=== PATIENT | male | born 1955 | race Caucasian/White ===

== ENCOUNTER 2020-07-25 08:19 | Outpatient (REF) | payer OTHER, SELFPAY | END 2020-07-25 08:20 | disposition home or self-care (01) | LOC: HO.LAB 08:19 | PROVIDERS: Visit Provider Internal Medicine | DX: Z20.828 Contact with and (suspected) exposure to other viral communicable diseases (principal) | CPT/HCPCS: C9803; U0003 ==

== ENCOUNTER 2020-11-02 06:05 | Outpatient (REF) | payer OTHER, SELFPAY ==
[2020-11-02 07:00] LABS: MANUAL DIFF FLAG NO
[2020-11-02 07:03] LABS: Basophils Absolute Auto 0.1 X10*3/uL (0.0-0.2); Basophils Percent Auto 0.7 % (0-2); Eosinophils Absolute Auto 0.1 X10*3/uL (0.0-0.4); Hematocrit 45.2 % (42-52); Hemoglobin 15.1 g/dl (14.0-18.0); Imm Gran Abs Auto 0.03 X10*3/uL (0.00-0.03); Imm Gran Pct Auto 0.4 % (0.0-0.4); Lymphocytes Absolute Auto 1.4 X10*3/uL (1.2-4.9); Mean Corpuscular HGB Conc 33.4 g/dl (31.0-36.0); Mean Corpuscular Volume 89.9 fL (80-98); Mean Platelet Volume 11.5 fL (9.4-12.4); Monocytes Absolute Auto 0.5 X10*3/uL (0.1-1.2); Monocytes Percent Auto 7.1 % (2-11); Neutrophils Absolute Auto 4.8 X10*3/uL (2.0-8.3); Neutrophils Percent Auto 69.8 % (45-73); Platelet Count 193 X10*3/uL (160-400); Red Blood Count 5.03 X10*6/uL (4.60-5.80); Red Cell Distribution Width 13.5 % (11.0-16.0); White Blood Count 6.9 X10*3/uL (4.8-10.8)
[2020-11-02 07:13] LABS: Glucose Urine UA NEG (NEG); Leukocyte Esterase Urine NEG (NEG); Nitrite Urine NEG (NEG); PH 5.5 (5.0-8.0); Specific Gravity - Urine >= 1.030 (1.005-1.025); Urine Blood TRACE (NEG); Urine Ketones NEG (NEG); Urine Protein NEG (NEG-TRACE)
[2020-11-02 07:17] LABS: Appearance Urine CLEAR; Color Urine YELLOW
[2020-11-02 07:20] LABS: Estimated Average Glucose 105 mg/dL; Hemoglobin A1c % 5.3 %
[2020-11-02 07:31] LABS: Alanine Aminotransferase 35 U/L (0-40); Albumin Level 4.6 g/dL (3.5-5.0); Alkaline Phosphatase 112 U/L (39-117); Anion Gap 15 (12-20); Aspartate Amino Transferase 32 U/L (5-37); Bilirubin Total 0.7 mg/dL (0.0-1.0); Blood Urea Nitrogen 15 mg/dL (9-16); Calcium 9.5 mg/dL (8.4-10.2); Carbon Dioxide 27 mmol/L (22-29); Chloride 106 mmol/L (96-108); Cholesterol 163 mg/dL; Estimated Glomerular Filt Rate > 60; Glucose Fasting 97 mg/dL (60-99); HDL Cholesterol 51 mg/dL; LDL Cholesterol Calculated 97 mg/dl; Potassium 4.6 mmol/L (3.3-5.1); Sodium 143 mmol/L (135-145); Total Protein 7.4 g/dL (6.5-8.0); Triglycerides 79 mg/dL
[2020-11-02 07:39] LABS: Mucus Urine 2+ /LPF; RBC Urine 0-2 /HPF (0); Squamous Epithelial Cell Urine 1+ /LPF
[2020-11-02 07:52] LABS: Prostate Specific Antigen 0.24 ng/mL (<0.05-4.0)
== END 2020-11-02 06:06 | disposition home or self-care (01) ==
LOC: HO.LAB 06:05
PROVIDERS: PCP Internal Medicine; Visit Provider Internal Medicine
DX: Z00.00 Encounter for general adult medical examination without abnormal findings (principal); Z12.5 Encounter for screening for malignant neoplasm of prostate; I10 Essential (primary) hypertension; K29.50 Unspecified chronic gastritis without bleeding; E78.5 Hyperlipidemia, unspecified; R73.01 Impaired fasting glucose; N40.0 Benign prostatic hyperplasia without lower urinary tract symptoms
CPT/HCPCS: 36415; 80053; 80061; 81001; 81003; 83036; 84153; 84443; 85025

== ENCOUNTER 2021-04-18 09:27 | Outpatient (REF) | payer MEDICARE, SELFPAY ==
[2021-04-18 11:28] LABS: Prostate Specific Antigen 0.27 ng/mL (<0.05-4.0)
== END 2021-04-18 09:28 | disposition home or self-care (01) ==
LOC: HO.LAB 09:27
PROVIDERS: PCP Internal Medicine; Visit Provider Urology
DX: Z12.5 Encounter for screening for malignant neoplasm of prostate (principal); N40.1 Benign prostatic hyperplasia with lower urinary tract symptoms
CPT/HCPCS: 36415; 84153

== ENCOUNTER 2021-11-30 06:00 | Outpatient (REF) | payer MEDICARE, SELFPAY ==
[2021-11-30 07:51] LABS: Alanine Aminotransferase 23 U/L (0-40); Albumin Level 4.4 g/dL (3.5-5.0); Alkaline Phosphatase 117 U/L (39-117); Aspartate Amino Transferase 25 U/L (5-37); Bilirubin Direct 0.2 mg/dL (0.0-0.5); Bilirubin Total 0.5 mg/dL (0.0-1.0); Total Protein 7.1 g/dL (6.5-8.0)
[2021-11-30 07:59] LABS: Alanine Aminotransferase 24 U/L (0-40); Albumin Level 4.3 g/dL (3.5-5.0); Alkaline Phosphatase 115 U/L (39-117); Anion Gap 9 (12-20); Aspartate Amino Transferase 25 U/L (5-37); Bilirubin Total 0.5 mg/dL (0.0-1.0); Blood Urea Nitrogen 19 mg/dL (9-16); Calcium 9.4 mg/dL (8.4-10.2); Carbon Dioxide 28 mmol/L (22-29); Chloride 107 mmol/L (96-108); Cholesterol 160 mg/dL; Estimated Glomerular Filt Rate > 60; Glucose Fasting 96 mg/dL (60-99); HDL Cholesterol 45 mg/dL; LDL Cholesterol Calculated 104 mg/dl; Potassium 4.4 mmol/L (3.3-5.1); Sodium 140 mmol/L (135-145); Triglycerides 57 mg/dL
[2021-11-30 08:05] LABS: Appearance Urine CLEAR; Color Urine YELLOW; Glucose Urine UA NEG (NEG); Leukocyte Esterase Urine NEG (NEG); Nitrite Urine NEG (NEG); PH 5.5 (5.0-8.0); Specific Gravity - Urine >= 1.030 (1.005-1.025); Urine Blood NEG (NEG); Urine Ketones NEG (NEG); Urine Protein NEG (NEG-TRACE)
[2021-11-30 08:12] LABS: TSH reflex Free T4 2.31 uIU/mL (0.32-4.0)
[2021-12-03 13:17] LABS: Alpha Fetoprotein 2.1 ng/mL (<6.1)
== END 2021-11-30 06:01 | disposition home or self-care (01) ==
LOC: HO.LAB 06:00
PROVIDERS: PCP Nurse Practitioner Family; Visit Provider Internal Medicine
DX: Z00.00 Encounter for general adult medical examination without abnormal findings (principal); Z86.19 Personal history of other infectious and parasitic diseases
CPT/HCPCS: 36415; 80053; 80061; 80076; 81003; 82105; 82248; 84443

== ENCOUNTER 2021-12-26 09:37 | Outpatient (REF) | payer MEDICARE, SELFPAY ==
--- NOTE | ~2021-12-26 | US_ITS ---
EXAMINATION: US COMPLETE ABDOMEN WITH LIVER ELASTOGRAPHY CLINICAL INFORMATION: Hepatitis C COMPARISON: Previous ultrasound most recent June 2019 TECHNIQUE: Real-time imaging of the abdominal viscera. Noninvasive ultrasound liver fibrosis assessment is performed using Dorothea ElastPQ point quantification shear wave elastography (2D-SWE) with a C5-2 MHz transducer. Multiple elastography samples are obtained. FINDINGS: PANCREAS: Not well visualized due to bowel gas. ABDOMINAL AORTA: The proximal, middle, and distal aortic segments are normal in caliber. INFERIOR VENA CAVA: Visualized portions are normal. LIVER: Liver echotexture is increased. The liver is normal in size and contour. No focal lesion or intrahepatic biliary duct dilatation. The right lobe measures 14 cm in length. The left lobe measures 6.4 cm in length. Portal flow is normal/hepatopedal Shear wave liver elastography median stiffness is 1.4 m/s (reference: normal median stiffness is 1.3 m/s or less). IQR/median stiffness to assess sampling precision is 0.3 (reference: good quality data set is IQR/median stiffness of 0.15 or less). GALLBLADDER: Surgically removed COMMON BILE DUCT: Normal in caliber measuring 0.3 cm in diameter. RIGHT KIDNEY: Normal. No hydronephrosis. No renal calculi or focal parenchymal lesions. The kidney measures 10 cm in maximum dimension. LEFT KIDNEY: Normal. No hydronephrosis. No renal calculi or focal parenchymal lesions. The kidney measures 11 cm in maximum dimension. SPLEEN: Normal. The spleen measures 9 cm in maximum dimension. FREE FLUID: None. US/US abdomen comp w elastography IMPRESSION: 1. Impression: Echogenic liver. No ultrasound evidence of cirrhosis. Nonvisualization of the pancreas. Post cholecystectomy. 2. Liver elastography: Adequate liver sampling. In the absence of other known clinical signs, rules out compensated advanced chronic liver disease. REFERENCE: Society of Radiologists in Ultrasound Liver Stiffness Thresholds (2020): LIVER STIFFNESS THRESHOLDS: *Liver Stiffness equal or less than 1.3 m/s: High probability of being normal. *Liver Stiffness less than 1.7 m/s: In the absence of other known clinical signs, rules out compensated advanced chronic liver disease. *Liver Stiffness 1.7-2.1 m/s: Suggestive of compensated advanced chronic liver disease but need further test for confirmation. *Liver Stiffness over 2.1 m/s: Rules in compensated advanced chronic liver disease. *Liver Stiffness over 2.4 m/s: Suggestive of clinically significant portal hypertension. QUALITY OF DATA SET: *IQR/Median value equal or less than 0.15 implies a quality data set. *IQR/Median value over 0.15 implies a poor quality data set. SIGNIFICANT CHANGE FROM PRIOR EXAM: Significant change if liver stiffness measurement is 10% or greater from prior exam. OTHER CONSIDERATIONS: The stage of liver fibrosis may be overestimated in the setting of acute hepatitis, liver inflammation, elevated liver function tests, hepatic vascular congestion, obstructive cholestasis, non-fasting state, and infiltrative diseases such as amyloidosis and lymphoma. In some patients with NAFLD, the liver stiffness thresholds for compensated advanced chronic liver disease may be lower. In causes other than viral hepatitis and NAFLD, liver stiffness thresholds are not well established.
== END 2021-12-26 09:38 | disposition home or self-care (01) ==
LOC: HO.US 09:37
PROVIDERS: PCP Nurse Practitioner Family; Visit Provider Internal Medicine
DX: Z86.19 Personal history of other infectious and parasitic diseases (principal)
CPT/HCPCS: 76705; 76981

== ENCOUNTER 2022-01-02 06:25 | Day surgery (SDC) | payer MEDICARE, SELFPAY ==
[2021-12-27 15:07] VITALS: BMI 24.0
--- NOTE | 2022-01-01 08:57 | P.CONAN_ITS ---
Documented by User: Sherrill Loya NP 01/01/22 08:58 HPI - Anesthesia Eval Consult details Narrative: 66yo M for Upper Endoscopy and Colonoscopy *Mult med allergies* PMFSH Active Problems Active Problems: All Active Problems (Updated 10/11/21 @ 17:25 by Rudolph Kumari [facility]) Physical exam (Acute) Skin lesion (Acute) Left shoulder pain (Acute) Lumbar spondylosis (Acute) Impaired fasting glucose (Acute) Dyslipidemia (Acute) Benign essential hypertension (Acute) Gastritis (Acute) Benign prostatic hyperplasia (Acute) Alopecia (capitis) totalis (Acute) Past Medical History Medical History (Updated 01/02/22 @ 06:47 by Rosario Tubbs RN) Alopecia (capitis) totalis Benign essential hypertension Benign prostatic hyperplasia Bradycardia Diverticulosis Dyslipidemia Gastritis History of drug abuse History of gastric ulcer History of hepatitis C History of Lyme disease (~2009) Impaired fasting glucose Internal hemorrhoids Left shoulder pain Lumbar spondylosis Normal colonoscopy (~08/2011) Family History Family History Father Prostate cancer Gastric cancer Family/Other Skin cancer Surgical History Surgical History (Updated 12/27/21 @ 15:08 by Sylvia Fry RN) History of esophagogastroduodenoscopy (EGD) (~06/2019) History of medial meniscus repair of left knee (~12/2016) History of prostate surgery History of right inguinal hernia repair (~2011) History of surgery on right wrist Hx laparoscopic cholecystectomy (~10/2012) Status post left rotator cuff repair (~11/2020) Social History Social History Housing: House Alcohol intake: never Patient Tobacco Use Status: Never used Tobacco e-Cigarette/Vaping Use: Never Used Second Hand Smoke Exposure: No Use of substances other than those prescribed or required for medical reasons: No Are you DNR?: No Advance Directives: No Advance Directives Information Provided: Yes Recently lost weight without trying: No Nutrition Risks: No Nutritional Risk service: Yes Current occupational status: retired Meds Allergies Allergy/AdvReac Type Severity Reaction Status Date / Time morphine [MORPHINE] Allergy Intermediate HR DROPPED Verified 10/11/21 16:07 ranitidine [Zantac] Allergy Intermediate depression Verified 12/27/21 14:24 (after taking for a few months) amoxicillin [Prevpac] AdvReac Intermediate depression Verified 12/27/21 14:24 (after taking for a few days) - includes most PPI clarithromycin [Prevpac] AdvReac Intermediate depression Verified 12/27/21 14:24 (after taking for a few days) - includes most PPI lansoprazole [Prevpac] AdvReac Intermediate depression Verified 12/27/21 14:24 (after taking for a few days) - includes most PPI Prilosec AdvReac Intermediate depression Uncoded 12/27/21 14:24 (after taking for a few days) - includes most PPI Zantac AdvReac Intermediate depression Uncoded 12/27/21 14:24 (after taking for a few months) Home Medications Medication Instructions Recorded Confirmed Last Taken Type No Known Home Meds 10/13/20 12/27/21 Unknown History Exam Exam Date and Time: January 01, 2022 0857 Height,Weight and Vital Signs: Height 5 ft 9 in Weight 73.936 kg Pertinent Lab Results Pertinent Lab Results: Laboratory Tests 11/02/20 11/30/21 06:20 06:12 WBC 6.9 Hgb 15.1 Hct 45.2 Plt Count 193 Sodium 140 Potassium 4.4 Chloride 107 Carbon Dioxide 28 BUN 19 H Creatinine 0.99 Assessment and Plan Assessment Anesthesia Assessment: Chart Reviewed Documented by User: William Lozada MD 01/02/22 17:23 [facility] Past Medical History Medical History (Updated 01/02/22 @ 06:47 by Rosario Tubbs RN) Alopecia (capitis) totalis Benign essential hypertension Benign prostatic hyperplasia Bradycardia Diverticulosis Dyslipidemia Gastritis History of drug abuse History of gastric ulcer History of hepatitis C History of Lyme disease (~2009) Impaired fasting glucose Internal hemorrhoids Left shoulder pain Lumbar spondylosis Normal colonoscopy (~08/2011) Family History Family History Father Prostate cancer Gastric cancer Family/Other Skin cancer Family history of problems with anesthesia: No Surgical History Surgical History (Updated 12/27/21 @ 15:08 by Sylvia Fry RN) History of esophagogastroduodenoscopy (EGD) (~06/2019) History of medial meniscus repair of left knee (~12/2016) History of prostate surgery History of right inguinal hernia repair (~2011) History of surgery on right wrist Hx laparoscopic cholecystectomy (~10/2012) Status post left rotator cuff repair (~11/2020) History of Problems with Anesthesia: No Social History Social History Housing: House Alcohol intake: never Patient Tobacco Use Status: Never used Tobacco e-Cigarette/Vaping Use: Never Used Second Hand Smoke Exposure: No Use of substances other than those prescribed or required for medical reasons: No Are you DNR?: No Advance Directives: No Advance Directives Information Provided: Yes Recently lost weight without trying: No Nutrition Risks: No Nutritional Risk service: Yes Current occupational status: retired Meds Allergies Allergy/AdvReac Type Severity Reaction Status Date / Time morphine [MORPHINE] Allergy Intermediate HR DROPPED Verified 10/11/21 16:07 ranitidine [Zantac] Allergy Intermediate depression Verified 12/27/21 14:24 (after taking for a few months) amoxicillin [Prevpac] AdvReac Intermediate depression Verified 12/27/21 14:24 (after taking for a few days) - includes most PPI clarithromycin [Prevpac] AdvReac Intermediate depression Verified 12/27/21 14:24 (after taking for a few days) - includes most PPI lansoprazole [Prevpac] AdvReac Intermediate depression Verified 12/27/21 14:24 (after taking for a few days) - includes most PPI Prilosec AdvReac Intermediate depression Uncoded 12/27/21 14:24 (after taking for a few days) - includes most PPI Zantac AdvReac Intermediate depression Uncoded 12/27/21 14:24 (after taking for a few months) Home Medications Medication Instructions Recorded Confirmed Last Taken Type No Known Home Meds 10/13/20 12/27/21 Unknown History Exam Airway Mallampati Class: II TM Dist: >3cm Neck ROM: Limited Loose/Missing/Broken Teeth: Yes (Chipped , poor dention , implants ) Heart: S1, S2 Lungs: b/l breath sounds Assessment and Plan Assessment Anesthesia Assessment: Anesthesia Plan Discussed Final Anesthetic Review Family History of Problems with Anesthesia: No History of Problems with Anesthesia: No NPO: Yes ASA Class: I Final Preanesthetic Review: Meds/Allgs Chart Reviewed, Consent Obtained/Reviewed and Anes Risks/Benef Reviewed Patient Risk: Intermediate Procedure Risk: Intermediate Anesthetic Plan Anesthetic Plan: MAC: Disposition: Standard PACU
[2022-01-02 06:35] VITALS: BMI 22.7
[2022-01-02 06:40] VITALS: BP 147/60; PULSE 41; RESP 16; TEMP 36.1; O2SAT 99
--- NOTE | 2022-01-02 06:50 | PC.NURSE ---
MD KELLER BY BEDSIDE DUE TO PATIENTS HEART RATE. ASYMPTOMATIC. 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
[2022-01-02 06:52] VITALS: PULSE 39
[2022-01-02] MEDS: Lactated Ringers 1,000 ML 100 ML IVCONT (06:59)
[2022-01-02 08:41] VITALS: BP 90/50; PULSE 52; RESP 16; TEMP 36.3; O2SAT 99
--- NOTE | 2022-01-02 08:46 | P.BOP_ITS ---
Brief Operative Note Date of Service: 01/02/22 Pre-op diagnosis: Cordero's, Screening Post-op diagnosis: other (Gastric ulcer, Hiatal hernia, Diverticulosis) Procedure: EGD with biopsies, Colonoscopy to the cecum and TI Surgeon: Joshua Yuen Anesthesia: MAC Was an [place] used for this Procedure?: No Estimated blood loss (mL): 2.0 Pathology: other (A. EG Junction at 39cm B. Gastric ulcer C. Gastric antrum) Condition: stable Disposition: PACU
[2022-01-02 08:56] VITALS: BP 108/62; PULSE 39; RESP 16; O2SAT 98
[2022-01-02 09:11] VITALS: BP 107/59; PULSE 40; RESP 16; O2SAT 100
[2022-01-02 09:26] VITALS: BP 116/65; PULSE 43; RESP 17; TEMP 36.3; O2SAT 100
--- NOTE | 2022-01-02 09:55 | OP_ITS ---
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 Full consent was obtained from him for this, including risks of bleeding and perforation. PREOPERATIVE DIAGNOSIS: POSTOPERATIVE DIAGNOSIS: PROCEDURE PERFORMED: Esophagogastroduodenoscopy with biopsies, and colonoscopy to the cecum and terminal ileum. ESTIMATED BLOOD LOSS: COMPLICATIONS: ANESTHESIA: Monitored anesthesia care. ASSISTANTS: SPECIMENS: PREOPERATIVE DIAGNOSES: Cordero's esophagus and colorectal cancer screening. POSTOPERATIVE DIAGNOSES: Cordero's esophagus and colorectal cancer screening, gastric ulcer, hiatal hernia, diverticulosis, and internal hemorrhoids. DESCRIPTION OF PROCEDURE: The patient was placed in the left lateral decubitus position. The Olympus video gastroscope was passed into the posterior oropharynx and upper esophagus under direct vision. The scope was passed slowly to the distal esophagus. The gastroesophageal junction appeared at 39 cm. There was some slight irregularity consistent with small areas of Cordero mucosa. There was no esophagitis. The scope entered into the stomach. There was a small hiatal hernia. The scope was advanced to pylorus and duodenum was cannulated to the descending portion. The duodenum including the bulb appeared normal without mass or ulceration. The scope was withdrawn back into the stomach. The gastric antrum appeared normal other than some mild areas of erythema and edema. Biopsies were obtained. In the body of the stomach, at approximately 50 cm, on the greater curvature toward the posterior wall, was an approximately 3 cm area of edema and some central ulceration. Multiple biopsies were obtained from the center of the area, which was somewhat firm with chunks of tissue, coming off with each biopsy. The area was somewhat friable. The remainder of the proximal stomach appeared normal both in the forward viewing and retroflexed positions. The scope was withdrawn back into the esophagus. Multiple biopsies were obtained at the EG junction at 39 cm. Proximal to this the esophageal mucosa appeared normal. The scope was withdrawn from the patient. He was turned around for the colonoscopy. The digital rectal exam revealed no abnormalities. The Olympus video pediatric colonoscope was entered into the rectum and advanced easily to the cecum. Once in the cecum, I did identify normal-appearing cecal pouch with appendiceal orifice and a normal-appearing ileocecal valve. The terminal ileum was cannulated and appeared normal. The scope was withdrawn back into the colon. The entire cecum and ileocecal valve appeared normal. The scope was slowly withdrawn assessing all mucosal surfaces carefully. Preparation was excellent. I did not visualize any sign of polyps, colitis, or angiodysplasia. There was a mild amount of sigmoid diverticulosis. In the rectum, the scope was retroflexed visualizing internal hemorrhoids, but no other pathology. The rectal mucosa appeared normal. The scope was straightened and withdrawn from the patient. He tolerated both procedures well and was returned to the recovery area in stable condition. IMPRESSION: 1. Gastric ulcer, multiple biopsies taken. 2. Mild gastritis. 3. History of Cordero's esophagus. 4. Small hiatal hernia. 5. Diverticulosis. 6. Internal hemorrhoids. PLAN: The results of the pathology will be checked. I shall start him on omeprazole 20 mg daily. He was advised to avoid all aspirin and NSAIDs. I would recommend a repeat upper endoscopy in 3 years. Further plans will be made depending upon the results of the biopsies of the gastric ulcer. MD BENIGNO Santos/DASIA / [id number] MTDD
== END 2022-01-02 10:13 | disposition home or self-care (01) ==
PROVIDERS: Pathology Anatomic Pathology & Clinical Pathology; PCP Nurse Practitioner Family; Visit Provider Internal Medicine
PROC: (CPT 43239; principal; 2022-01-02 07:30)
DX: Z12.11 Encounter for screening for malignant neoplasm of colon (principal); K57.30 Diverticulosis of large intestine without perforation or abscess without bleeding; K64.8 Other hemorrhoids; K22.70 Barrett's esophagus without dysplasia; K21.9 Gastro-esophageal reflux disease without esophagitis; K25.9 Gastric ulcer, unspecified as acute or chronic, without hemorrhage or perforation; K29.50 Unspecified chronic gastritis without bleeding; K44.9 Diaphragmatic hernia without obstruction or gangrene; L63.0 Alopecia (capitis) totalis; F19.11 Other psychoactive substance abuse, in remission; Z79.899 Other long term (current) drug therapy; Z88.1 Allergy status to other antibiotic agents; Z88.8 Allergy status to other drugs, medicaments and biological substances; Z90.49 Acquired absence of other specified parts of digestive tract; Z87.442 Personal history of urinary calculi; Z86.19 Personal history of other infectious and parasitic diseases; Z80.42 Family history of malignant neoplasm of prostate; Z80.0 Family history of malignant neoplasm of digestive organs
CPT/HCPCS: 43239; G0121; 36415; 81261; 81264; 84999; 88271; 88275; 88305; 88341; 88342; 88360; 88374; 88377; J2250

== ENCOUNTER → 2022-01-21 11:20 | Outpatient (BNV) | payer MEDICARE, SELFPAY | PROVIDERS: PCP Nurse Practitioner Family; Visit Provider Internal Medicine Medical Oncology | DX: C85.99 Non-Hodgkin lymphoma, unspecified, extranodal and solid organ sites (principal) | CPT/HCPCS: 99204; 99213; 99214 ==

== ENCOUNTER 2022-01-28 11:12 | Day surgery (SDC) | payer MEDICARE, SELFPAY ==
--- NOTE | 2022-01-24 14:20 | P.CONAN_ITS ---
Documented by User: Sherrill Loya NP 01/24/22 14:23 HPI - Anesthesia Eval Consult details Narrative: 66yo M for Bone Marrow Biopsy s/p Upper Endoscopy and Colonoscopy 12/2021 with TIVA - Dx Gastric Lymphoma *Mult med allergies* PMFSH Active Problems Active Problems: All Active Problems (Updated 01/21/22 @ 19:28 by Twyla Greene MD) Physical exam (Acute) Skin lesion (Acute) Gastric lymphoma (Acute) Left shoulder pain (Acute) Lumbar spondylosis (Acute) Impaired fasting glucose (Acute) Dyslipidemia (Acute) Benign essential hypertension (Acute) Gastritis (Acute) Benign prostatic hyperplasia (Acute) Alopecia (capitis) totalis (Acute) Past Medical History Medical History Bradycardia Diverticulosis History of drug abuse History of gastric ulcer History of hepatitis C History of Lyme disease (~2009) Internal hemorrhoids Normal colonoscopy (~08/2011) Family History Family History Father Prostate cancer Gastric cancer Family/Other Skin cancer Family history of problems with anesthesia: No Surgical History Surgical History History of esophagogastroduodenoscopy (EGD) (~06/2019) History of medial meniscus repair of left knee (~12/2016) History of prostate surgery History of right inguinal hernia repair (~2011) History of surgery on right wrist Hx laparoscopic cholecystectomy (~10/2012) Status post left rotator cuff repair (~11/2020) History of Problems with Anesthesia: No Social History Social History Household Members: None Housing: House Are you a primary child care center administrator to a significant other at home: No Do you presently have visiting nurse or other home services: No Alcohol intake: never Patient Tobacco Use Status: Never used Tobacco e-Cigarette/Vaping Use: Never Used Second Hand Smoke Exposure: No Use of substances other than those prescribed or required for medical reasons: No Are you DNR?: No Advance Directives: No Advance Directives Information Provided: Yes service: Yes Current occupational status: retired Meds Allergies Allergy/AdvReac Type Severity Reaction Status Date / Time morphine [MORPHINE] Allergy Intermediate HR DROPPED Verified 01/28/22 11:51 ranitidine [Zantac] Allergy Intermediate depression Verified 01/28/22 11:51 (after taking for a few months) amoxicillin [Prevpac] AdvReac Intermediate depression Verified 01/21/22 11:55 (after taking for a few days) - includes most PPI clarithromycin [Prevpac] AdvReac Intermediate depression Verified 01/21/22 11:55 (after taking for a few days) - includes most PPI lansoprazole [Prevpac] AdvReac Intermediate depression Verified 01/21/22 11:55 (after taking for a few days) - includes most PPI Prilosec AdvReac Intermediate depression Uncoded 01/21/22 11:55 (after taking for a few days) - includes most PPI Zantac AdvReac Intermediate depression Uncoded 01/21/22 11:55 (after taking for a few months) Home Medications Medication Instructions Recorded Confirmed Last Taken Type No Known Home Meds 10/13/20 01/28/22 Unknown History Exam Exam Date and Time: January 24, 2022 1420 Pertinent Lab Results Pertinent Lab Results: Laboratory Tests 01/21/22 01/21/22 12:56 12:56 WBC 7.0 Hgb 14.6 Hct 43.8 Plt Count 175 Sodium 139 Potassium 4.6 Chloride 106 Carbon Dioxide 27 BUN 16 Creatinine 0.92 Assessment and Plan Assessment Anesthesia Assessment: Chart Reviewed Final Anesthetic Review Family History of Problems with Anesthesia: No History of Problems with Anesthesia: No Documented by User: Alicia Diaz MD 01/28/22 13:24 [facility] Past Medical History Medical History Bradycardia Diverticulosis History of drug abuse History of gastric ulcer History of hepatitis C History of Lyme disease (~2009) Internal hemorrhoids Normal colonoscopy (~08/2011) Functional capacity: independent ambulation Family History Family History Father Prostate cancer Gastric cancer Family/Other Skin cancer Surgical History Surgical History History of esophagogastroduodenoscopy (EGD) (~06/2019) History of medial meniscus repair of left knee (~12/2016) History of prostate surgery History of right inguinal hernia repair (~2011) History of surgery on right wrist Hx laparoscopic cholecystectomy (~10/2012) Status post left rotator cuff repair (~11/2020) Social History Social History Household Members: None Housing: House Are you a primary child care center administrator to a significant other at home: No Do you presently have visiting nurse or other home services: No Alcohol intake: never Patient Tobacco Use Status: Never used Tobacco e-Cigarette/Vaping Use: Never Used Second Hand Smoke Exposure: No Use of substances other than those prescribed or required for medical reasons: No Are you DNR?: No Advance Directives: No Advance Directives Information Provided: Yes service: Yes Current occupational status: retired Meds Allergies Allergy/AdvReac Type Severity Reaction Status Date / Time morphine [MORPHINE] Allergy Intermediate HR DROPPED Verified 01/28/22 11:51 ranitidine [Zantac] Allergy Intermediate depression Verified 01/28/22 11:51 (after taking for a few months) amoxicillin [Prevpac] AdvReac Intermediate depression Verified 01/21/22 11:55 (after taking for a few days) - includes most PPI clarithromycin [Prevpac] AdvReac Intermediate depression Verified 01/21/22 11:55 (after taking for a few days) - includes most PPI lansoprazole [Prevpac] AdvReac Intermediate depression Verified 01/21/22 11:55 (after taking for a few days) - includes most PPI Prilosec AdvReac Intermediate depression Uncoded 01/21/22 11:55 (after taking for a few days) - includes most PPI Zantac AdvReac Intermediate depression Uncoded 01/21/22 11:55 (after taking for a few months) Home Medications Medication Instructions Recorded Confirmed Last Taken Type No Known Home Meds 10/13/20 01/28/22 Unknown History Exam Airway Mallampati Class: II TM Dist: >3cm Neck ROM: Full Heart: bradycardic Lungs: CTA Assessment and Plan Final Anesthetic Review ASA Class: II Final Preanesthetic Review: No Changes in Pt Med Stat, Meds/Allgs Chart Reviewed, Consent Obtained/Reviewed and Anes Risks/Benef Reviewed Patient Risk: Low Procedure Risk: Low Anesthetic Plan Anesthetic Plan: MAC: Disposition: Standard PACU
[2022-01-28 11:52] VITALS: BP 130/69; PULSE 42; RESP 16; TEMP 35.9; O2SAT 98; BMI 22.8
[2022-01-28] MEDS: Lactated Ringers 1,000 ML 100 ML IVCONT (12:22)
[2022-01-28 13:40] VITALS: BP 126/76; PULSE 54; RESP 16; TEMP 36.9; O2SAT 98
[2022-01-28 13:42] LABS: Bone Marrow SEE SEPARATE REPORT
[2022-01-28 13:55] VITALS: BP 125/66; PULSE 51; RESP 16; O2SAT 98
--- NOTE | 2022-01-28 13:57 | PM.HEMONCBM ---
Bone Marrow Aspiration - Bone Marrow Aspiration Procedure:: *Service Date: [01/28/22] Pre Op Diagnosis:: Gastric lymphoma. Post Op Diagnosis:: Same. Surgeon:: Twyla Greene. Anesthesia:: MAC. Consent:: Informed consent obtained from the patient for the procedure. Pros and cons of biopsy explained. The patient was willing to proceed with the procedure under local anesthesia. Procedure in Detail:: *Service Date: 01/28/22. *Procedure: Bone marrow aspirate and biopsy. *Pre Op Dx: Gastric lymphoma. *Post Op Dx: Same. *Surgeon: Twyla Greene. The patient was positioned prone. The left posterior superior iliac spine prepped and draped. Under MAC anaesthesia, aseptic precautions, 5 ml of 1% lidocaine used for local anesthesia. Bone marrow aspirate was taken. Biopsy was performed with the Jamshidi needle, Specimens were sent for Avina stain, flow cytometry and cytogenetics. Biopsy was sent for histology. The patient tolerated the procedure well. Bandage was applied and patient was positioned on his back for 10 to 15 minutes after the procedure. The patient was advised to call us if he develops any pain or swelling at the surgical site. Follow up in 1 week. CC: Dr. Yuen.
[2022-01-28 14:10] VITALS: BP 128/65; PULSE 54; RESP 16; TEMP 36.9; O2SAT 98
== END 2022-01-28 14:52 | disposition home or self-care (01) ==
PROVIDERS: PCP Nurse Practitioner Family; Visit Provider Internal Medicine Medical Oncology
PROC: (CPT 38221; principal; 2022-01-28 13:10)
DX: C85.99 Non-Hodgkin lymphoma, unspecified, extranodal and solid organ sites (principal); C88.4 Extranodal marginal zone B-cell lymphoma of mucosa-associated lymphoid tissue [MALT-lymphoma]; Z80.0 Family history of malignant neoplasm of digestive organs; Z80.42 Family history of malignant neoplasm of prostate; Z86.19 Personal history of other infectious and parasitic diseases; Z87.11 Personal history of peptic ulcer disease; I49.8 Other specified cardiac arrhythmias; Z90.49 Acquired absence of other specified parts of digestive tract; F19.21 Other psychoactive substance dependence, in remission; Z88.8 Allergy status to other drugs, medicaments and biological substances; Z88.1 Allergy status to other antibiotic agents
CPT/HCPCS: 38222; 36415; 85097; 88184; 88185; 88237; 88264; 88305; 88311; 88313; 88341; 88342; J1642; J2250

== ENCOUNTER 2022-01-29 09:49 | Outpatient (REF) | payer MEDICARE, SELFPAY ==
--- NOTE | ~2022-01-29 | PE_ITS ---
EXAMINATION: PET CT FUSION SKULL TO THIGH CLINICAL INFORMATION: Gastric lymphoma. COMPARISON: CT abdomen/pelvis 07/01/2008. TECHNIQUE: 60 minutes following the intravenous administration of 16.8 mCi of fluorine-18 FDG, images from the base of the skull to the mid thighs were obtained using a combined PET/CT scanner with CT scan-based attenuation correction. No intravenous contrast was administered. Transverse, coronal, sagittal, and volume reconstruction projections were obtained. The patient's blood glucose as determined by a finger stick was 99 mg/dL immediately prior to injection. This examination was performed using dose optimization techniques as appropriate, variously including the following: *Automated exposure control *Adjustment of mA and/or kV according to patient size (this includes techniques or standardized protocols for targeted exams where dose is matched to indication/reason for exam; i.e. extremities or head) *Use of iterative reconstruction technique DLP: 383 mGy-cm FINDINGS: NECK AND VISUALIZED HEAD: No FDG-avid cervical lymphadenopathy. THORAX: Lungs: Respiratory motion precludes evaluation of parenchymal details and small pulmonary nodules. No abnormal FDG uptake. No focal airspace opacity. Mediastinum: No FDG-avid lymphadenopathy. Normal heart size. No pericardial effusion. Coronary calcifications and atherosclerotic disease of the thoracic aorta. Pericardium/Pleura: No abnormal FDG uptake. Chest Wall/Axillae: No FDG-avid lymphadenopathy. ABDOMEN AND PELVIS: Peritoneal Space: No abnormal FDG uptake. Liver, Gallbladder, Biliary Tree: No FDG-avid lesion. The liver is enlarged measuring 19.4 cm craniocaudally but within normal shape and attenuation. Cholecystectomy. No biliary ductal dilatation. Pancreas: No abnormal FDG uptake. Spleen: No abnormal FDG activity. The spleen measures 10.8 cm craniocaudally. Adrenal Glands: No FDG-avid lesion. Kidneys and Ureters: No nephrolithiasis or hydronephrosis. Expected physiologic and excretory FDG activity limiting evaluation of small FDG-avid lesion. Bladder: No calculi, wall thickening or perivesical fat stranding. Excretory FDG activity limits evaluation of small FDG-avid lesion. Gastrointestinal Tract: The stomach is under distended limiting assessment of wall thickening. There is mild diffuse FDG uptake in the stomach, with a more prominent focal uptake in the fundus measuring 2.5 SUVmax (302/698). Diverticulosis but no evidence of acute diverticulitis. No bowel obstruction. Abdominal Wall: No abnormal FDG uptake. Lymphovascular Structures: There is an indeterminate focus of FDG uptake in the mesentery at the level of L3-L4 with an SUVmax of 3.7 (427/698). Its evaluation is very limited due to misregistration secondary to motion. Pelvic Viscera: Enlarged prostate with coarse calcifications. Evaluation of FDG lesions is limited due to overlying activity from the urinary bladder. MUSCULOSKELETAL: Indeterminate asymmetric increased sclerosis and heterogeneity of the right iliac crest with the greatest FDG uptake ,SUVmax of 4.3, centered in the right SI joint (486/698) versus 1.8 on the left side. This is new when compared to a CT from 07/01/2008. VASCULAR: Scattered atherosclerotic disease. The abdominal aorta is of normal diameter. PET/PET CT fusion skull to thigh IMPRESSION: Mild FDG uptake in the stomach, similar to slightly higher than the mediastinal blood pool. Nonspecific sclerosis of the right iliac crest and sacral ala adjacent to the SI joint with moderate increased FDG uptake. Focus of increased FDG activity in the mesentery at the level of L3-L4 is suboptimally assessed due to motion misregistration. This could be associated with uptake in the mesenteric vasculature, a lymph node or misregistered activity from the small bowel. Recommend correlation with an abdominal CT. Hepatomegaly.
== END 2022-01-29 09:50 | disposition home or self-care (01) ==
LOC: HO.PET 09:49
PROVIDERS: PCP Nurse Practitioner Family; Visit Provider Internal Medicine Medical Oncology
DX: Z13.89 Encounter for screening for other disorder (principal)

== ENCOUNTER → 2022-02-05 10:16 | Outpatient (REF) | payer MEDICARE, SELFPAY ==
--- NOTE | 2022-02-05 10:18 | CA_ITS ---
Transthoracic Echocardiogram Patient (Last, First, Middle): Chad Cotto, Gender: Male Date of : 1955 Age: 66 Procedure Date: 02/05/2022 Procedure Type: Transthoracic Echocardiogram Location: OP Height: 175.26 cm Weight: 70.31 kg BSA: 1.85 m2 Heart Rate: bpm BP: 115 / 70 mmHg Cigar Bander Hand: TO Referring MD: Twyla Greene MD Symptoms: Baseline prior to chemotherapy Study Quality: Fair ECG Rhythm: Sinus Conclusions: - The left ventricular systolic function is normal. The calculated ejection fraction is 65% by biplane method. - No obvious valvular pathology seen on this study. Findings Left Ventricle Normal left ventricular cavity size. There is normal left ventricular wall thickness. The left ventricular systolic function is normal. The calculated ejection fraction is 65% by biplane method. There is no evidence of regional wall motion abnormalities. Diastolic function is normal for age. LV peak GLS -20.7% (normal). Right Ventricle Normal right ventricular cavity size and systolic function. Atria The left atrium is normal in size. The right atrium is mildly dilated. Aortic Valve The aortic valve was not well visualized. There is no aortic valve stenosis. There is trace (trivial) aortic valve regurgitation. Mitral Valve The mitral valve appears normal. There is no mitral valve regurgitation. There is no mitral valve stenosis. Pulmonic Valve The pulmonic valve is likely normal. Tricuspid Valve Normal tricuspid valve structure. There is trace tricuspid valve regurgitation. The pulmonary artery systolic pressure is normal. Great Vessels Top normal ascending aortic size at 3.9 cm. Venous The inferior vena cava is normal in size and collapses greater than 50% with inspiration. Pericardium/Pleural There is no evidence of pericardial effusion. Recommendations, Care & Conclusions No obvious valvular pathology seen on this study. Measurements 2D Linear Measurements IVSd: 1.02 0.6-0.9/0.6-1.0 cm LVIDd: 4.26 3.9-5.3/4.2-5.9 cm LVIDd Index: 2.30 2.4-3.2/2.2-3.1 cm/m2 LVIDs: 2.67 2.0-3.6 cm LVPWd: 0.90 0.7-1.1 cm LA Diam: 2.90 2.7-3.8/3.0-4.0 cm LAIDs Index: 1.57 1.5-2.3 cm/m2 LV Mass: 165.43 67-162/88-224 g LV Mass Index: 89.42 43-95/49-115 g/m2 LVOT Diam: 2.10 3.0+(-)1.3 cm 2D Systolic Function EF 4C: 64.60 >55% EF 2C: 67.40 >55% EF BiP: 65.20 >55% Mitral Valve MV Pk E: 0.69 MV PK A: 0.80 MV Decel Time: 266.00 E/A: 0.90 E'Lateral: 11.30 E'Medial: 10.90 E/E' Med: 6.40 E/E' Lat: 6.10 PHT: 78.00 MVA PHT: 2.82 Decel [place]: 2.61 Aortic Valve AoV Pk Jimmie: 1.62 AoV Mn Jimmie: 1.09 AoV VTI: 0.33 AoV Pk Grad: 10.00 Aov Mn Grad: 5.00 MAYO Cont.VTI: 2.80 LVOT LVOT Pk Jimmie: 1.27 LVOT Mn Jimmie: 0.79 LVOT VTI: 0.27 LVOT Pk Grad: 6.00 LVOT Mn Grad: 3.00 LVOT Diam: 2.10 LVOT Area: 3.46 Diastolic Function MV Pk E: 0.69 MV Pk A: 0.80 E/A: 0.90 E'Medial: 10.90 E/E' Med: 6.40 E' Laterial: 11.30 E/E' Lat: 6.10 Right Ventricle TAPSE (mm): 27.80 TVS' Jimmie: 12.90 Tricuspid Valve TR Pk Jimmie: 1.94 TR Pk Grad: 15.00 RA Press: 3.00 RVSP: 18.00 Great Vessels Aorta Sinus of Valsalva: 3.71 2.0-3.5 cm Ao Asc: 3.80 2.1-3.4 cm Ao Arch: 3.10 Updated in Other Vendor System with Status of Final Shayan Galloway MD electronically signed on 02/07/2022 2:41:02 PM with status of Final
== END ==
LOC: HO.CARD 10:16
PROVIDERS: PCP Nurse Practitioner Family; Visit Provider Internal Medicine Medical Oncology
DX: C85.99 Non-Hodgkin lymphoma, unspecified, extranodal and solid organ sites (principal)
CPT/HCPCS: 93306; 93356

== ENCOUNTER 2022-03-04 11:41 | Day surgery (SDC) | payer MEDICARE, SELFPAY ==
[2022-03-04] VITALS (8 sets, daily range): BP systolic 111–144; BP diastolic 55–67; PULSE 38–43; RESP 16–18; TEMP 36.1–36.4; O2SAT 96–98; BMI 24.2
--- NOTE | ~2022-03-04 | CT_ITS ---
EXAMINATION: CT ABDOMEN AND PELVIS WITH CONTRAST CLINICAL INFORMATION: Increased mesenteric activity seen on PET. COMPARISON: PET/CT whole body exam 01/29/2022. TECHNIQUE: Multidetector volumetric images were obtained from the superior aspect of the liver through the pubic symphysis following administration 85 mL of Omnipaque 350 intravenous contrast. Sagittal and coronal reformatted images were obtained on the technologist's workstation. Oral contrast: No This CT examination was performed using dose optimization techniques as appropriate, variously including the following: *Automated exposure control *Adjustment of mA and/or kV according to patient size (this includes techniques or standardized protocols for targeted exams where dose is matched to indication/reason for exam; i.e. extremities or head) *Use of iterative reconstruction technique DLP: 600 mGy-cm FINDINGS: LUNG BASES: The visualized lung bases are unremarkable. LIVER, GALLBLADDER, AND BILIARY TREE: The liver is normal in size, shape, and attenuation. No focal hepatic lesion or biliary ductal dilatation is present. The gallbladder has been surgically removed. PANCREAS: Unremarkable. SPLEEN: Unremarkable. ADRENAL GLANDS: Unremarkable. KIDNEYS AND URETERS: The kidneys are normal in size, shape, and attenuation. No hydronephrosis, hydroureter, or calculi seen. No perinephric stranding. BLADDER: Unremarkable. GASTROINTESTINAL TRACT: There is a large amount of stool in the colon without any significant distention. The small bowel loops are normal caliber. Appendix is not seen. No inflammatory process, free air or free fluid seen. ABDOMINAL WALL: No significant hernia is appreciated. LYMPH NODES: Normal. VASCULAR: Unremarkable. PELVIC VISCERA: Unremarkable. OSSEOUS STRUCTURES: Moderate large ventral bridging osteophytes are seen in lumbar spine. No aggressive lytic or sclerotic process visualized. There is a heterogeneous bone marrow right posterior iliac bone narrow biopsy was performed prior to the CT abdomen and pelvis exam. CT/CT abdomen pelvis w con IMPRESSION: Moderate constipation. No acute process seen. Heterogeneous right iliac bone, positive on whole body PET/CT exam. Fleischner guidelines were followed.
--- NOTE | ~2022-03-04 | CT_ITS ---
PROCEDURE: CT GUIDED BIOPSY, BONE CLINICAL INFORMATION: Gastric lymphoma. COMPARISON: CT PET study 01/29/2022. TECHNIQUE: Following explaining the CT fluoroscopy-guided right posterior iliac crest bone marrow/bone biopsy procedure, benefits and risk, a written consent was obtained. The patient was placed prone and then the CT imaging was obtained. An optimal site was selected along the midline posterior pelvis and repeat CT imaging was performed. An optimal site was selected from the left marker and the site was marked on the skin. The skin area was then cleaned and draped in the usual sterile manner. 1% lidocaine was injected at the puncture site. Through a small skin incision a 16-gauge guide needle was advanced from the skin to the posterior iliac crest. A battery-operated drill was attached to the needle and the needle was advanced through the bony cortex into the bone marrow. Coaxial needle was inserted, attached to the drill, and core biopsy of the bone marrow and the bony cortex was performed. A 2 pass biopsy was performed. Postprocedure the guide needle was withdrawn and complete hemostasis was achieved. The patient tolerated the procedure extremely well. Conscious sedation was administered during the exam and patient was monitored by the IR nurse and radiologist. This CT examination was performed using dose optimization techniques as appropriate, variously including the following: *Automated exposure control *Adjustment of mA and/or kV according to patient size (this includes techniques or standardized protocols for targeted exams where dose is matched to indication/reason for exam; i.e. extremities or head) *Use of iterative reconstruction technique DLP: 303 mGy-cm FINDINGS: On preliminary CT imaging of the pelvis there is a heterogeneous bone marrow along the posterior superior right iliac crest as noted on the previous PET exam. 2 pass core bone marrow biopsy was performed without immediate complications. Sample was sent in alcohol solution. CT/CT biopsy bone deep IMPRESSION: Successful CT fluoroscopy-guided right posterior iliac crest bone marrow biopsy.
[2022-03-04 12:50] LABS: INTERNATIONAL NORM RATIO 1.2 (0.9-1.1); Prothrombin Time 13.4 SEC (10.0-13.1)
[2022-03-04 12:52] LABS: Partial Thromboplastin Time 36.2 SEC (24.1-38.0)
[2022-03-04] MEDS: iohexoL 350 MG/ML 100 ML INFUS..BTL IV (14:57)
== END 2022-03-04 16:40 | disposition home or self-care (01) ==
PROVIDERS: PCP Nurse Practitioner Family; Visit Provider Radiology Diagnostic Radiology
DX: C88.4 Extranodal marginal zone B-cell lymphoma of mucosa-associated lymphoid tissue [MALT-lymphoma] (principal); Z86.19 Personal history of other infectious and parasitic diseases; K22.70 Barrett's esophagus without dysplasia; Z80.0 Family history of malignant neoplasm of digestive organs; Z88.0 Allergy status to penicillin; Z88.8 Allergy status to other drugs, medicaments and biological substances; Z80.42 Family history of malignant neoplasm of prostate
CPT/HCPCS: 20225; 36415; 74177; 77012; 85610; 85730; 88307; 88311; 88341; 88342; 99152; 99153; J2250; J3010; Q9967

== ENCOUNTER 2022-06-03 06:10 | Outpatient (REF) | payer MEDICARE, SELFPAY ==
[2022-06-03 08:38] LABS: Prostate Specific Antigen 0.19 ng/mL (<0.05-4.0)
== END 2022-06-03 06:11 | disposition home or self-care (01) ==
LOC: HO.LAB 06:10
PROVIDERS: PCP Nurse Practitioner Family; Visit Provider Urology
DX: Z12.5 Encounter for screening for malignant neoplasm of prostate (principal); N40.1 Benign prostatic hyperplasia with lower urinary tract symptoms
CPT/HCPCS: 36415; 84153

== ENCOUNTER 2022-07-23 11:58 | Outpatient (REF) | payer MEDICARE, SELFPAY ==
--- NOTE | ~2022-07-23 | PE_ITS ---
EXAMINATION: Fluorine-18 FDG PET/CT Scan CLINICAL INDICATION: Subsequent treatment management. Gastric lymphoma. Restaging. PROCEDURE: 69 minutes following the intravenous administration of 16.1 mCi of fluorine 18 FDG, images from the base of the skull to the mid thighs were obtained using a combined PET/CT scanner with CT scan based attenuation correction. No intravenous contrast was administered. Transverse, coronal, sagittal, and volume reconstruction projections were obtained. The patient's blood glucose as determined by a finger stick, was 89 mg/dl immediately prior to injection. The radiotracer was injected intravenously through left antecubital superficial vein, without any complications. Total CT exam dose-length product 436.61 mGy-cm * These CT images were obtained using dose optimization techniques as appropriate, variously including the following: Automated exposure control * Adjustment of mA and/or kV according to patient size (this includes techniques or standardized protocols for targeted exams where dose is matched to indication/reason for exam; i.e. extremities or head) * Use of iterative reconstruction technique COMPARISON: PET CT study done on 01/29/2022, CT of the abdomen and pelvis done on 02/02/[address]-guided right posterior iliac crest bone biopsy also done on 03/04/2022. FINDINGS: NECK AND VISUALIZED HEAD: No suspicious FDG avid disease. No significant change. THORAX: No FDG avid lung parenchymal, mediastinal, hilar or axillary or internal mammary disease or pleural or pericardial effusion, unchanged. ABDOMEN AND PELVIS: Nonspecific mural thickening is present involving the fundus and proximal part of the body of the stomach without any abnormal increased FDG avidity. The mural thickening appears to have decreased since the prior study dated 01/29/2022. Interval development of small focal FDG avidity is noted within the central part of the abdomen slightly to the left of the midline with SUV max of 3.9 (141/267), may represent a small mesenteric lymph node versus focal abnormality within the adjacent mid small bowel. Attention to follow up is recommended. Physiologic radiotracer activities are present within both kidneys including both renal pelvicalyceal system, both ureters and the bladder. Postsurgical changes of cholecystectomy. There is no FDG avid liver or adrenal disease. No evidence of any hepatosplenomegaly. MUSCULOSKELETAL: Asymmetric increased radiotracer activity is present within the right hemipelvis, specifically involving the right iliac bone around the right SI joint with SUV max of 2.8 (199/267). Significant sclerotic changes are present involving the right iliac bone in this region on the concordant CT images. No evidence of any cortical break or soft tissue component. Overall pattern appears unchanged. The site apparently was biopsied on 03/04/2022 and did not show any lymphomatous involvement. In the absence of lymphomatous involvement, possible differential diagnostic consideration would include early changes of Paget's disease versus reactive changes from sacroiliitis or old posttraumatic changes. VASCULAR: Atherosclerotic disease of the aorta and is branches without aneurysm formation. PET/PET CT fusion skull to thigh IMPRESSION: 1. Small bowel focus of FDG avidity is noted within the central part of the abdomen slightly to the left of the midline with SUV max of 3.9, may represent a small mesenteric lymph node versus focal abnormality within the adjacent small bowel. Attention to follow up is recommended. 2. No FDG avid disease involving the stomach. Previously documented nonspecific mural thickening involving the fundus and proximal part of the body of the stomach appears improved since the prior study dated 01/29/2022. 3. Persistent stable nonspecific asymmetric increased radiotracer activity involving the right hemipelvis, specifically around the right SI joint involving the right iliac bone. The site apparently was biopsied on 03/04/2022 and did not show any lymphomatous involvement. Possible differential diagnostic consideration would include early changes of Paget's disease versus reactive changes from sacroiliitis or old posttraumatic changes.
== END 2022-07-23 11:59 | disposition home or self-care (01) ==
LOC: HO.PET 11:58
PROVIDERS: Visit Provider Internal Medicine Medical Oncology
DX: Z13.89 Encounter for screening for other disorder (principal)

== ENCOUNTER 2022-08-30 07:26 | Day surgery (SDC) | payer MEDICARE, SELFPAY ==
--- NOTE | 2022-08-29 15:24 | HO.ANESPROP2 ---
FORMERLY [facility] Active Problems Active Problems: All Active Problems (Updated 08/29/22 @ 08:07 by Rosario Tubbs RN) Physical exam (Acute) Skin lesion (Acute) Gastric lymphoma (Acute) Bradycardia (Acute) Left shoulder pain (Acute) Lumbar spondylosis (Acute) Impaired fasting glucose (Acute) Dyslipidemia (Acute) Benign essential hypertension (Acute) Gastritis (Acute) Benign prostatic hyperplasia (Acute) Alopecia (capitis) totalis (Acute) Past Medical History Medical History Abnormal biliary HIDA scan Alopecia (capitis) totalis Benign essential hypertension Benign prostatic hyperplasia Bradycardia [place] of foot Diverticulosis Dyslipidemia Gastritis Hepatitis C History of drug abuse History of gastric ulcer History of hepatitis C History of Lyme disease (~2009) Impaired fasting glucose Internal hemorrhoids Kidney stones Left shoulder pain Lumbar spondylosis Normal colonoscopy (~08/2011) Family History Family History Father Gastric cancer Prostate cancer Family/Other Pancreas cancer Brother Skin cancer Family history of problems with anesthesia: No Surgical History Surgical History History of esophagogastroduodenoscopy (EGD) (~06/2019) History of liver biopsy History of medial meniscus repair of left knee (~12/2016) History of prostate surgery History of right inguinal hernia repair (~2011) History of surgery on right wrist Hx laparoscopic cholecystectomy (~10/2012) Status post left rotator cuff repair (~11/2020) History of Problems with Anesthesia: No Social History Social History Household Members: None Housing: House Are you a primary career services manager to a significant other at home: No Do you presently have visiting nurse or other home services: No Alcohol intake: never Patient Tobacco Use Status: Never used Tobacco e-Cigarette/Vaping Use: Never Used Second Hand Smoke Exposure: No Use of substances other than those prescribed or required for medical reasons: No Have you been hit, kicked, punched, or otherwise hurt by someone within the past year? If so, by whom?: No Do you have thoughts of harming others: None Do you have a plan to hurt others: No Plan Do you have the means to hurt others: No Recently lost weight without trying: No service: Yes Current occupational status: retired Cognitive needs: No Hearing needs: No Vision needs: Yes Meds Allergies Allergy/AdvReac Type Severity Reaction Status Date / Time morphine [MORPHINE] Allergy Intermediate HR DROPPED Verified 08/13/22 08:36 ranitidine [Zantac] Allergy Intermediate depression Verified 08/13/22 08:36 (after taking for a few months) amoxicillin [Prevpac] AdvReac Intermediate depression Verified 08/13/22 08:36 (after taking for a few days) - includes most PPI clarithromycin [Prevpac] AdvReac Intermediate depression Verified 08/13/22 08:36 (after taking for a few days) - includes most PPI lansoprazole [Prevpac] AdvReac Intermediate depression Verified 08/13/22 08:36 (after taking for a few days) - includes most PPI Prilosec AdvReac Intermediate depression Uncoded 08/13/22 08:36 (after taking for a few days) - includes most PPI Zantac AdvReac Intermediate depression Uncoded 08/13/22 08:36 (after taking for a few months) Home Medications Medication Instructions Recorded Confirmed Last Taken Type famotidine 40 mg tablet 1 tab PO BID 08/29/22 Unknown History omeprazole 20 mg capsule,delayed 1 cap PO QAM 08/29/22 Unknown History release Exam Exam Date and Time: August 29, 2022 152 Assessment and Plan Final Anesthetic Review Family History of Problems with Anesthesia: No History of Problems with Anesthesia: No
[2022-08-30 07:38] VITALS: BMI 23.6
[2022-08-30] MEDS: Lactated Ringers 1,000 ML 100 ML IVCONT (07:44)
[2022-08-30 07:57] VITALS: BP 132/66; PULSE 47; RESP 18; TEMP 36.6; O2SAT 96
[2022-08-30 08:00] LABS: Amphetamine Screen Urine Not Detected (Not Detect); Barbiturates, Urine Not Detected (Not Detect); Benzodiazepines Screen Urine Not Detected (Not Detect); Cannabinoid Screen Urine Not Detected (Not Detect); Cocaine Screen Urine Not Detected (Not Detect); Fentanyl, urine Not Detected (Not Detect); Opiate Screen Urine Not Detected (Not Detect); Phencyclidine Screen Urine Not Detected (Not Detect)
--- NOTE | 2022-08-30 08:40 | P.CONAN_ITS ---
FORMERLY [facility], LATER [facility] Active Problems Active Problems: All Active Problems (Updated 08/29/22 @ 08:07 by Rosario Tubbs RN) Physical exam (Acute) Skin lesion (Acute) Gastric lymphoma (Acute) Bradycardia (Acute) Left shoulder pain (Acute) Lumbar spondylosis (Acute) Impaired fasting glucose (Acute) Dyslipidemia (Acute) Benign essential hypertension (Acute) Gastritis (Acute) Benign prostatic hyperplasia (Acute) Alopecia (capitis) totalis (Acute) Past Medical History Medical History Abnormal biliary HIDA scan Alopecia (capitis) totalis Benign essential hypertension Benign prostatic hyperplasia Bradycardia [place] of foot Diverticulosis Dyslipidemia Gastritis Hepatitis C History of drug abuse History of gastric ulcer History of hepatitis C History of Lyme disease (~2009) Impaired fasting glucose Internal hemorrhoids Kidney stones Left shoulder pain Lumbar spondylosis Normal colonoscopy (~08/2011) Family History Family History Father Gastric cancer Prostate cancer Family/Other Pancreas cancer Brother Skin cancer Family history of problems with anesthesia: No Surgical History Surgical History History of esophagogastroduodenoscopy (EGD) (~06/2019) History of liver biopsy History of medial meniscus repair of left knee (~12/2016) History of prostate surgery History of right inguinal hernia repair (~2011) History of surgery on right wrist Hx laparoscopic cholecystectomy (~10/2012) Status post left rotator cuff repair (~11/2020) History of Problems with Anesthesia: No Social History Social History Household Members: None Housing: House Are you a primary careers counsellor to a significant other at home: No Do you presently have visiting nurse or other home services: No Alcohol intake: never Patient Tobacco Use Status: Never used Tobacco e-Cigarette/Vaping Use: Never Used Second Hand Smoke Exposure: No Use of substances other than those prescribed or required for medical reasons: Yes Substance Use Type Other:: patient refuses to answer or last time. Urine tox. sent Are you DNR?: No Advance Directives: No Advance Directives Information Provided: Yes Nutrition Risks: No Nutritional Risk service: Yes Current occupational status: retired Cognitive needs: No Hearing needs: No Vision needs: Yes Meds Allergies Allergy/AdvReac Type Severity Reaction Status Date / Time morphine [MORPHINE] Allergy Intermediate HR DROPPED Verified 08/30/22 07:55 amoxicillin [Prevpac] AdvReac Intermediate depression Verified 08/30/22 07:55 (after taking for a few days) - includes most PPI clarithromycin [Prevpac] AdvReac Intermediate depression Verified 08/30/22 07:55 (after taking for a few days) - includes most PPI lansoprazole [Prevpac] AdvReac Intermediate depression Verified 08/30/22 07:55 (after taking for a few days) - includes most PPI ranitidine [Zantac] AdvReac Intermediate depression Verified 08/30/22 07:55 (after taking for a few months) Prilosec AdvReac Intermediate depression Uncoded 08/30/22 07:55 (after taking for a few days) - includes most PPI Active Medications: Current Medications Lactated Ringer's (Lr) 1,000 mls @ 100 mls/hr IVCONT .Q10H OLIVIER Last Admin: 08/30/22 07:44 Dose: 100 mls/hr Home Medications Medication Instructions Recorded Confirmed Last Taken Type omeprazole 20 mg capsule,delayed 1 cap PO QAM PRN Gastric Reflux 08/29/22 08/30/22 Unknown History release Exam Exam Date and Time: August 30, 2022 0840 Height,Weight and Vital Signs: Height 5 ft 9 in Weight 72.575 kg Last Vital Signs Temp 97.9 F 08/30/22 07:57 Pulse 47 L 08/30/22 07:57 Resp 18 08/30/22 07:57 BP 132/66 08/30/22 07:57 Pulse Ox 96 08/30/22 07:57 O2 Del Method 08/30/22 07:57 Pertinent Lab Results Pertinent Lab Results: Laboratory Tests 08/30/22 07:30 Urine Opiates Screen Not Detected Urine Fentanyl Screen Not Detected Ur Barbiturates Screen Not Detected Ur Phencyclidine Scrn Not Detected Ur Amphetamines Screen Not Detected U Benzodiazepines Scrn Not Detected Urine Cocaine Screen Not Detected U Marijuana (THC) Screen Not Detected Airway Mallampati Class: II TM Dist: >3cm Neck ROM: Full Loose/Missing/Broken Teeth: No Heart: rrr Lungs: cta Assessment and Plan Final Anesthetic Review Family History of Problems with Anesthesia: No History of Problems with Anesthesia: No NPO: Yes ASA Class: III Final Preanesthetic Review: No Changes in Pt Med Stat, Meds/Allgs Chart Reviewed, Consent Obtained/Reviewed and Anes Risks/Benef Reviewed Patient Risk: Intermediate Procedure Risk: Intermediate Anesthetic Plan Anesthetic Plan: MAC: and Agree w/ Assess. and Plan Disposition: Standard PACU
[2022-08-30 09:34] VITALS: BP 116/69; PULSE 47; RESP 14; TEMP 36.4; O2SAT 98
--- NOTE | 2022-08-30 09:42 | P.BOP_ITS ---
Brief Operative Note Date of Service: 08/30/22 Pre-op diagnosis: Gastric lymphoma Post-op diagnosis: other (Same, Gastritis, Hiatal hernia, Cordero's esophagus) Procedure: EGD with biopsies Surgeon: Joshua Yuen Anesthesia: MAC Was an Polishing Wheel Setter used for this Procedure?: No Estimated blood loss (mL): 2.0 Pathology: other (A. Proximal stomach, site of previous gastric lymphoma B. Gastric antrum) Condition: stable Disposition: PACU
[2022-08-30 09:49] VITALS: BP 119/71; PULSE 51; RESP 16; TEMP 36.1; O2SAT 97
--- NOTE | 2022-08-30 09:59 | OP_ITS ---
SURGEON: Joshua Yuen MD INDICATIONS: The patient presents for followup of history of gastric lymphoma. Full consent has been obtained from him for this, including risks of bleeding and perforation. PREOPERATIVE DIAGNOSIS: History of gastric lymphoma. POSTOPERATIVE DIAGNOSIS: PROCEDURE PERFORMED: Esophagogastroduodenoscopy with biopsies. ESTIMATED BLOOD LOSS: COMPLICATIONS: ANESTHESIA: Monitored anesthesia care. ASSISTANTS: SPECIMENS: POSTOPERATIVE DIAGNOSES: History of gastric lymphoma, area of scarring at previous site of gastric lymphoma, gastritis, hiatal hernia, Cordero's esophagus. DESCRIPTION OF PROCEDURE: The patient was placed in the left lateral decubitus position. The Olympus video gastroscope was passed in the posterior oropharynx and upper esophagus under direct vision. The scope was passed slowly to the distal esophagus. The gastroesophageal junction appeared at 38 cm. There were some small areas of Cordero's mucosa which were not biopsied as they had been biopsied last year. There was no inflammation nor ulceration. The scope entered the stomach where there was a small hiatal hernia. The scope was advanced to pylorus and the duodenum was cannulated to the descending portion. The duodenum including the bulb appeared normal without mass or ulceration. The scope was withdrawn back into the stomach. The pre-pyloric antrum had evidence of some gastritis with one area of some edema and some friability. There was no ulceration nor mass. There was good peristalsis. Multiple biopsies were obtained from the area of inflammation, and surrounding normal mucosa. The scope was retroflexed visualizing the proximal stomach carefully, which appeared normal, without any sign of mass or ulceration. In the forward viewing position, at the site of the previous ulcer where biopsies last year had shown lymphoma, was what appeared to be primarily scarring. I did not see any sign of actual ulcer nor mass. This was at the same location at 50 cm on the greater curvature, toward the posterior gastric wall. Multiple biopsies were obtained from the area. It was somewhat firm and somewhat friable. Overall, I think this represented scarring as opposed to acute ulcer. The remainder of the proximal stomach appeared normal. The scope was withdrawn back in the esophagus. Proximal to the area of Cordero's mucosa, the esophageal mucosa appeared normal. The scope was withdrawn from the patient. He tolerated the procedure well and was returned to the recovery area in stable condition. IMPRESSION: 1. History of gastric lymphoma. 2. Gastritis. 3. Hiatal hernia. 4. History of Cordero's esophagus. PLAN: The results of the biopsies will be checked. At this point, he is not using a PPI as those tend to bother him. I will give him a prescription to use famotidine 40 mg twice a day as long as it does not give him any side effects. He was advised to stay off all aspirin and NSAIDs as well. This has been discussed with his mother. Followup will be with myself and he will obviously continue to follow up with Dr. Greene from Oncology as well. MD BENIGNO Santos/DASIA / [id number] MTDD
== END 2022-08-30 10:17 | disposition home or self-care (01) ==
PROVIDERS: Anesthesiology; PCP Nurse Practitioner Family; Visit Provider Internal Medicine
PROC: 0DJ08ZZ Inspection of Upper Intestinal Tract, Via Natural or Artificial Opening Endoscopic (ICD-10-PCS; CPT 43235; principal; 2022-08-30 09:00)
DX: C85.93 Non-Hodgkin lymphoma, unspecified, intra-abdominal lymph nodes (principal); K25.9 Gastric ulcer, unspecified as acute or chronic, without hemorrhage or perforation; K29.50 Unspecified chronic gastritis without bleeding; K44.9 Diaphragmatic hernia without obstruction or gangrene; K22.70 Barrett's esophagus without dysplasia; I10 Essential (primary) hypertension; R73.01 Impaired fasting glucose; F19.10 Other psychoactive substance abuse, uncomplicated; Z79.899 Other long term (current) drug therapy; Z88.1 Allergy status to other antibiotic agents; Z88.8 Allergy status to other drugs, medicaments and biological substances; Z86.19 Personal history of other infectious and parasitic diseases; Z90.49 Acquired absence of other specified parts of digestive tract
CPT/HCPCS: 43239; 80307; 88305; 88342

== ENCOUNTER 2022-09-20 06:02 | Outpatient (REF) | payer MEDICARE, SELFPAY ==
--- NOTE | ~2022-09-20 | CT_ITS ---
EXAMINATION: CT ABDOMEN AND PELVIS WITH CONTRAST CLINICAL INFORMATION: Abnormal PET scan imaging, history of lymphoma COMPARISON: 07/23/2022, 03/04/2022 TECHNIQUE: Multidetector volumetric images were obtained from the superior aspect of the liver through the pubic symphysis following administration 85 mL of Omnipaque 350 intravenous contrast. Sagittal and coronal reformatted images were obtained on the technologist's workstation. Oral contrast: No This CT examination was performed using dose optimization techniques as appropriate, variously including the following: *Automated exposure control *Adjustment of mA and/or kV according to patient size (this includes techniques or standardized protocols for targeted exams where dose is matched to indication/reason for exam; i.e. extremities or head) *Use of iterative reconstruction technique DLP: 340 mGy-cm FINDINGS: LUNG BASES: New consolidations in the left greater than right lung bases. Left lung base consolidation measures 3.3 x 1.9 cm and right lung base measures 1.4 x 2.0 cm. LIVER, GALLBLADDER, AND BILIARY TREE: Diffuse hypoattenuation of liver parenchyma likely reflects hepatic steatosis. Status post cholecystectomy. PANCREAS: Unremarkable. SPLEEN: Unremarkable. All the ADRENAL GLANDS: Unremarkable. KIDNEYS AND URETERS: The kidneys are normal in size, shape, and attenuation. No hydronephrosis, hydroureter, or calculi seen. No perinephric stranding. BLADDER: Unremarkable. GASTROINTESTINAL TRACT: Colonic diverticulosis, no CT findings of acute diverticulitis. Appendix is within normal limits. Again seen is mesenteric stranding and haziness with mildly prominent lymph nodes in the midline/left aspect of the mesentery (3:30), overall extent is not significantly changed from prior study. A reference mesenteric node measures 1.4 cm (3:30) previously measured 1.0 cm ABDOMINAL WALL: No significant hernia is appreciated. LYMPH NODES: Normal. VASCULAR: Unremarkable. PELVIC VISCERA: Unremarkable. OSSEOUS STRUCTURES: Degenerative changes of the lumbar spine. Degenerative changes of the bilateral sacroiliac joints. CT/CT abdomen pelvis w IV con IMPRESSION: 1. New consolidations in the left greater than right lung bases. Differential considerations include multifocal pneumonia or aspiration. Recommend dedicated chest CT to exclude lymphomatous involvement of the thorax. 2. Mesenteric stranding and haziness with mildly prominent lymph nodes in the midline/left aspect of the mesentery, overall extent is not significantly changed from prior study. A reference mesenteric node measures 1.4 cm previously measured 1.0 cm.
[2022-09-20] MEDS: iohexoL 350 MG/ML 100 ML INFUS..BTL IV (08:45)
== END 2022-09-20 06:03 | disposition home or self-care (01) ==
LOC: HO.CT 06:02
PROVIDERS: PCP Nurse Practitioner Family; Visit Provider Internal Medicine Medical Oncology
DX: C85.99 Non-Hodgkin lymphoma, unspecified, extranodal and solid organ sites (principal)
CPT/HCPCS: 74177; Q9967

== ENCOUNTER 2022-10-14 08:12 | Outpatient (REF) | payer MEDICARE, SELFPAY ==
--- NOTE | ~2022-10-14 | CT_ITS ---
EXAMINATION: CT CHEST WITH CONTRAST CLINICAL INFORMATION: Left basilar opacity. COMPARISON: Chest x-ray 10/15/2022 at 2:18 PM TECHNIQUE: Multidetector volumetric CT imaging of the chest was obtained after the administration of 50 mL of Omnipaque 350 intravenous contrast without immediate adverse reactions. Axial MIP volume rendering provided. Sagittal and coronal reformatted images were obtained. This CT examination was performed using dose optimization techniques as appropriate, variously including the following: *Automated exposure control *Adjustment of mA and/or kV according to patient size (this includes techniques or standardized protocols for targeted exams where dose is matched to indication/reason for exam; i.e. extremities or head) *Use of iterative reconstruction technique DLP: 147 mGy-cm FINDINGS: SYSTEMS TEST TECHNICIAN: The lungs are expanded patchy opacity left lung base LUNGS: The lungs are well-expanded with multifocal patchy opacities with air bronchograms most prominent in both lung bases. There is scattered opacities in right upper lobe, and superior segment left lower lobe. MEDIASTINUM: The heart size is normal. The central trachea and the bronchi widely patent. No abnormal mediastinal or hilar lymph nodes. No pericardial effusion. There is no coronary artery calcifications. PLEURA: There is no pleural effusion. No pleural mass or thickening. AXILLA: Small shotty lymph nodes. The chest wall is unremarkable UPPER ABDOMEN: . Visualized liver, spleen, pancreas and bilateral adrenal glands unremarkable. Gallbladder has been removed. OSSEOUS STRUCTURES: Bone windows reveal no calculi no visible fracture or bony abnormality. There is mild ventral spondylosis throughout dorsal spine. CT/CT chest w IV con IMPRESSION: 1. Multifocal patchy opacities with air bronchograms most prominent in both lung bases. There are scattered opacities infiltrate in the right upper lobe and superior segment left lower lobe. 2. No abnormal mediastinal or axillary lymphadenopathy. Fleischner guidelines were followed.
[2022-10-14] MEDS: iohexoL 350 MG/ML 100 ML INFUS..BTL IV (08:44)
== END 2022-10-14 08:13 | disposition home or self-care (01) ==
LOC: HO.CT 08:12
PROVIDERS: Visit Provider Internal Medicine Medical Oncology
DX: C85.99 Non-Hodgkin lymphoma, unspecified, extranodal and solid organ sites (principal)
CPT/HCPCS: 71260; Q9967

== ENCOUNTER 2022-10-15 14:14 | Outpatient (REF) | payer MEDICARE, SELFPAY ==
--- NOTE | ~2022-10-15 | XR_ITS ---
EXAMINATION: XR CHEST CLINICAL INFORMATION: Pneumonia COMPARISON: 01/20/2016 TECHNIQUE: 2 views of the chest were obtained. FINDINGS: The lungs are well expanded. Left basilar hazy airspace opacity. No edema. No pleural effusion. No pneumothorax. The cardiac mediastinal silhouette is unchanged, with a calcified aorta. Degenerative changes throughout the spine. DISH. XR/XR chest 2V IMPRESSION: Hazy left basilar airspace opacity could represent atelectasis or pneumonia.
== END 2022-10-15 14:15 | disposition home or self-care (01) ==
LOC: HO.HMGCX 14:14
PROVIDERS: PCP Nurse Practitioner Family; Visit Provider Internal Medicine
DX: J18.9 Pneumonia, unspecified organism (principal)
CPT/HCPCS: 71046

== ENCOUNTER → 2022-10-18 09:30 | Outpatient (BNVA) | payer MEDICARE, SELFPAY | PROVIDERS: PCP Nurse Practitioner Family; Visit Provider Hospitalist | DX: J18.9 Pneumonia, unspecified organism (principal); C85.99 Non-Hodgkin lymphoma, unspecified, extranodal and solid organ sites | CPT/HCPCS: 99202 ==

== ENCOUNTER 2022-11-20 10:31 | Outpatient (REF) | payer MEDICARE, SELFPAY ==
[2022-11-20 11:43] LABS: MANUAL DIFF FLAG NO
[2022-11-20 11:50] LABS: Basophils Absolute Auto 0.1 X10*3/uL (0.0-0.2); Basophils Percent Auto 0.6 % (0-2); Eosinophils Absolute Auto 0.2 X10*3/uL (0.0-0.4); Eosinophils Percent Auto 1.8 % (0-4); Hematocrit 40.1 % (42.0-52.0); Hemoglobin 13.3 g/dl (14.0-18.0); Imm Gran Pct Auto 1.1 % (0.0-0.4); Lymphocytes Absolute Auto 0.8 X10*3/uL (1.2-4.9); Lymphocytes Percent Auto 8.6 % (20-40); Mean Corpuscular HGB Conc 33.2 g/dl (31.0-36.0); Mean Corpuscular Hemoglobin 28.8 pg (27.0-33.0); Mean Corpuscular Volume 86.8 fL (80.0-98.0); Mean Platelet Volume 9.5 fL (9.4-12.4); Monocytes Absolute Auto 0.9 X10*3/uL (0.1-1.2); Monocytes Percent Auto 9.8 % (2-11); Neutrophils Absolute Auto 7.4 x10*3/uL (2.0-8.3); Neutrophils Percent Auto 78.1 % (45-73); Platelet Count 353 X10*3/uL (160-400); Red Blood Count 4.62 X10*6/uL (4.60-5.80); Red Cell Distribution Width 12.9 % (11.0-16.0); White Blood Count 9.5 X10*3/uL (4.8-10.8)
[2022-11-20 12:12] LABS: Alanine Aminotransferase 31 U/L (0-40); Albumin Level 3.9 g/dL (3.5-5.0); Alkaline Phosphatase 68 U/L (39-117); Anion Gap 13 (12-20); Aspartate Amino Transferase 20 U/L (5-37); Bilirubin Total 0.5 mg/dL (0.0-1.0); Blood Urea Nitrogen 13 mg/dL (9-16); Calcium 9.2 mg/dL (8.4-10.2); Carbon Dioxide 24 mmol/L (22-29); Chloride 104 mmol/L (96-108); Estimated Glomerular Filt Rate > 60; Glucose Random 100 mg/dL (60-115); Lactate Dehydrogenase 171 U/L (118-273); Potassium 4.5 mmol/L (3.3-5.1); Sodium 136 mmol/L (135-145); Total Protein 7.3 g/dL (6.5-8.0); Uric Acid 4.7 mg/dL (3.4-7.0)
[2022-11-20 12:51] LABS: Erythrocyte Sedimentation Rate 74 MM/HR (0-15)
[2022-11-24 04:13] LABS: A. Phagocytphilium DNA,RT-PCR NOT DETECTED (NOT DETECTED); Babesia Microti DNA, RT-PCR NOT DETECTED (NOT DETECTED); Borrelia Miyamotoi,DNA RT-PCR NOT DETECTED (NOT DETECTED); E.Chaffeensis DNA RT-PCR NOT DETECTED (NOT DETECTED); Lyme(Borrelia ssp)DNA RT-PCR NOT DETECTED (NOT DETECTED)
== END 2022-11-20 10:32 | disposition home or self-care (01) ==
LOC: HO.HMGCLDS 10:31
PROVIDERS: PCP Nurse Practitioner Family; Visit Provider Nurse Practitioner Family
DX: M25.50 Pain in unspecified joint (principal); J18.9 Pneumonia, unspecified organism; C85.99 Non-Hodgkin lymphoma, unspecified, extranodal and solid organ sites
CPT/HCPCS: 36415; 80053; 83615; 84550; 85025; 85652; 86140; 87798; 87801

== ENCOUNTER 2022-12-03 08:16 | Outpatient (REF) | payer MEDICARE, SELFPAY ==
--- NOTE | ~2022-12-03 | CT_ITS ---
EXAMINATION: CT CHEST WITHOUT CONTRAST CLINICAL INFORMATION: Pneumonia. COMPARISON: Chest x-ray 10/15/2022. TECHNIQUE: Multidetector volumetric CT imaging of the chest was done. Axial MIP volume rendering provided. Sagittal and coronal reformatted images were obtained. This CT examination was performed using dose optimization techniques as appropriate, variously including the following: *Automated exposure control *Adjustment of mA and/or kV according to patient size (this includes techniques or standardized protocols for targeted exams where dose is matched to indication/reason for exam; i.e. extremities or head) *Use of iterative reconstruction technique DLP: 155 mGy-cm FINDINGS: ACCOUNTING CLERK: Hyperinflated lungs with bibasilar patchy opacity question scarring or atelectasis. LUNGS: The lungs are hyperinflated with patchy ill-defined airspace consolidation right lower lobe, pleural-based lateral segment left lower lobe. There is subpleural opacities in the right upper lobe posterior segment and lateral segments and bilateral anterior segments of upper lobes. There are no pulmonary nodules or mass. MEDIASTINUM: The thyroid lobes are symmetrical and normal. The central trachea and the bronchi widely patent. Heart size and the great vessels are normal caliber. No pericardial effusion seen. No abnormal size mediastinal or hilar lymph nodes seen. Small shotty lymph nodes are seen in the mediastinum. CORONARY ARTERY CALCIFICATION: Trace coronary artery calcification origin bilateral coronary arteries is noted. PLEURA: There is mild bilateral posterior pleural thickening. AXILLA: No lymphadenopathy. UPPER ABDOMEN: Visualized liver, spleen, pancreas and bilateral adrenal glands unremarkable. The gallbladder has been surgically removed. OSSEOUS STRUCTURES: No aggressive lytic or sclerotic process seen. There is mild ventral spondylosis and ankylosing spondylitis throughout dorsal spine. CT/CT chest wo IV con IMPRESSION: 1. Bilateral lower lobe and right upper lobe patchy airspace consolidation. There is bilateral upper lobe subpleural opacities. These findings are suggestive of inflammatory or infectious etiology. 2. There is no abnormal mediastinal or axillary lymphadenopathy. 3. Mild bilateral the dependent posterior pleural thickening. 4. Mild coronary artery calcifications. Fleischner guidelines were followed.
== END 2022-12-03 08:17 | disposition home or self-care (01) ==
LOC: HO.CT 08:16
PROVIDERS: PCP Nurse Practitioner Family; Visit Provider Hospitalist
DX: J18.9 Pneumonia, unspecified organism (principal)
CPT/HCPCS: 71250

== ENCOUNTER 2022-12-11 08:22 | Outpatient (REF) | payer MEDICARE, SELFPAY ==
[2022-12-11 09:32] LABS: MANUAL DIFF FLAG NO
[2022-12-11 09:54] LABS: Basophils Percent Auto 0.1 % (0-2); Eosinophils Percent Auto 0.1 % (0-4); Hematocrit 37.8 % (42.0-52.0); Hemoglobin 12.4 g/dl (14.0-18.0); Imm Gran Abs Auto 0.07 X10*3/uL (0.00-0.03); Imm Gran Pct Auto 0.5 % (0.0-0.4); Lymphocytes Absolute Auto 0.6 X10*3/uL (1.2-4.9); Lymphocytes Percent Auto 4.2 % (20-40); Mean Corpuscular HGB Conc 32.8 g/dl (31.0-36.0); Mean Corpuscular Hemoglobin 28.4 pg (27.0-33.0); Mean Corpuscular Volume 86.5 fL (80.0-98.0); Mean Platelet Volume 9.1 fL (9.4-12.4); Monocytes Absolute Auto 0.8 X10*3/uL (0.1-1.2); Monocytes Percent Auto 5.1 % (2-11); Neutrophils Absolute Auto 13.5 x10*3/uL (2.0-8.3); Platelet Count 313 X10*3/uL (160-400); Red Blood Count 4.37 X10*6/uL (4.60-5.80); Red Cell Distribution Width 13.2 % (11.0-16.0)
[2022-12-11 10:46] LABS: Erythrocyte Sedimentation Rate 56 MM/HR (0-15)
[2022-12-12 23:33] LABS: Myeloperoxidase Antibody <1.0 AI; Proteinase 3 PR3 Antibodies <1.0 AI; Scleroderma 70 Antibody <1.0 NEG AI (<1.0 NEG)
[2022-12-13 15:43] LABS: Cyclic Citrullinated Peptide <16 UNITS
[2022-12-14 13:44] LABS: Anti Nuclear Antibody Screen NEGATIVE (NEGATIVE)
[2022-12-14 18:44] LABS: IgA 245 mg/dL (70-320); IgG 1830 mg/dL (600-1540); IgM 111 mg/dL (50-300)
[2022-12-16 02:44] LABS: Angiotensin Converting Enzyme 17.2 U/L (9-67)
[2022-12-16 08:28] LABS: Immunoglobulin E 14 kU/L (<OR=114)
[2022-12-19 00:39] LABS: Asperg fumigatus Precip Abs NEGATIVE (NEGATIVE); Micropoly faeni Abs NEGATIVE (NEGATIVE); Pigeon serum Abs NEGATIVE (NEGATIVE); Saccharo pora viridis Abs NEGATIVE (NEGATIVE); Thermo candidus Abs NEGATIVE (NEGATIVE); Thermoa vulgaris #1 NEGATIVE (NEGATIVE)
== END 2022-12-11 08:23 | disposition home or self-care (01) ==
LOC: HO.LAB 08:22
PROVIDERS: PCP Nurse Practitioner Family; Visit Provider Hospitalist
DX: J18.9 Pneumonia, unspecified organism (principal); R91.8 Other nonspecific abnormal finding of lung field; C85.99 Non-Hodgkin lymphoma, unspecified, extranodal and solid organ sites
CPT/HCPCS: 36415; 82164; 82784; 82785; 85025; 85652; 86021; 86038; 86039; 86200; 86235; 86331; 86606; 86609; 99212

== ENCOUNTER → 2022-12-13 08:28 | Outpatient (BNVA) | payer MEDICARE, SELFPAY | PROVIDERS: PCP Nurse Practitioner Family; Visit Provider Student in an Organized Health Care Education/Training Program | DX: M25.50 Pain in unspecified joint (principal) | CPT/HCPCS: 99202 ==

== ENCOUNTER 2022-12-19 06:52 | Day surgery (SDC) | payer MEDICARE, SELFPAY ==
--- NOTE | 2022-12-18 09:23 | P.CONAN_ITS ---
Documented by User: Sherrill Loya NP 12/18/22 09:26 HPI - Anesthesia Eval Consult details Narrative: 67yo M for Bronchoscopy Fiberoptic s/p EGD 08/2022 with TIVA (Hx gastric lymphoma) PMFSH Active Problems Active Problems: All Active Problems (Updated 12/13/22 @ 09:30 by Lee Ann Goyal MD) Acute urticaria (Acute) Dermatitis (Acute) Joint pain (Acute) Pneumonia (Acute) Physical exam (Acute) Skin lesion (Acute) Gastric lymphoma (Acute) Bradycardia (Acute) Left shoulder pain (Acute) Lumbar spondylosis (Acute) Impaired fasting glucose (Acute) Dyslipidemia (Acute) Benign essential hypertension (Acute) Gastritis (Acute) Benign prostatic hyperplasia (Acute) Alopecia (capitis) totalis (Acute) Past Medical History Medical History Abnormal biliary HIDA scan Alopecia (capitis) totalis Benign essential hypertension Benign prostatic hyperplasia Bradycardia [place] of foot Diverticulosis Dyslipidemia Gastritis Hepatitis C History of drug abuse History of gastric ulcer History of hepatitis C History of Lyme disease (~2009) Impaired fasting glucose Internal hemorrhoids Kidney stones Left shoulder pain Lumbar spondylosis Normal colonoscopy (~08/2011) Family History Family History Father Gastric cancer Prostate cancer Family/Other Pancreas cancer Brother Skin cancer Family history of problems with anesthesia: No Surgical History Surgical History History of esophagogastroduodenoscopy (EGD) (~06/2019) History of liver biopsy History of medial meniscus repair of left knee (~12/2016) History of prostate surgery History of right inguinal hernia repair (~2011) History of surgery on right wrist Hx laparoscopic cholecystectomy (~10/2012) Status post left rotator cuff repair (~11/2020) History of Problems with Anesthesia: No Social History Social History Household Members: None Housing: House Are you a primary career development director to a significant other at home: No Do you presently have visiting nurse or other home services: No Alcohol intake: never Patient Tobacco Use Status: Never used Tobacco e-Cigarette/Vaping Use: Never Used Second Hand Smoke Exposure: No Use of substances other than those prescribed or required for medical reasons: No Substance Use Type Other:: former Are you DNR?: No Advance Directives: No Advance Directives Information Provided: Yes service: Yes Current occupational status: retired Cognitive needs: No Hearing needs: No Vision needs: Yes Meds Allergies Allergy/AdvReac Type Severity Reaction Status Date / Time morphine [MORPHINE] Allergy Intermediate HR DROPPED Verified 12/13/22 08:37 amoxicillin [Prevpac] AdvReac Intermediate depression Verified 12/13/22 08:37 (after taking for a few days) - includes most PPI clarithromycin [Prevpac] AdvReac Intermediate depression Verified 12/13/22 08:37 (after taking for a few days) - includes most PPI lansoprazole [Prevpac] AdvReac Intermediate depression Verified 12/13/22 08:37 (after taking for a few days) - includes most PPI ranitidine [Zantac] AdvReac Intermediate depression Verified 12/13/22 08:37 (after taking for a few months) Prilosec AdvReac Intermediate depression Uncoded 12/13/22 08:37 (after taking for a few days) - includes most PPI Exam Exam Date and Time: December 18, 2022 0923 Pertinent Lab Results Pertinent Lab Results: Laboratory Tests 11/20/22 12/11/22 10:40 09:31 WBC 15.0 H Hgb 12.4 L Hct 37.8 L Plt Count 313 Sodium 136 Potassium 4.5 Chloride 104 Carbon Dioxide 24 BUN 13 Creatinine 0.77 Narrative Narrative: ECHO 2021 Conclusions: - The left ventricular systolic function is normal.? The ? calculated ejection fraction is 65% by biplane method. ? - No obvious valvular pathology seen on this study.? ?? CT chest wo IV con 11/2022 IMPRESSION: 1.? Bilateral lower lobe and right upper lobe patchy airspace consolidation. There is bilateral upper lobe subpleural opacities. These findings are suggestive of inflammatory or infectious etiology. 2.? There is no abnormal mediastinal or axillary lymphadenopathy. 3.? Mild bilateral the dependent posterior pleural thickening. 4.? Mild coronary artery calcifications. Assessment and Plan Assessment Anesthesia Assessment: Chart Reviewed Final Anesthetic Review Family History of Problems with Anesthesia: No History of Problems with Anesthesia: No Documented by User: Gee Ruiz MD 12/19/22 08:45 PMFSH Past Medical History Medical History Abnormal biliary HIDA scan Alopecia (capitis) totalis Benign essential hypertension Benign prostatic hyperplasia Bradycardia [place] of foot Diverticulosis Dyslipidemia Gastritis Hepatitis C History of drug abuse History of gastric ulcer History of hepatitis C History of Lyme disease (~2009) Impaired fasting glucose Internal hemorrhoids Kidney stones Left shoulder pain Lumbar spondylosis Normal colonoscopy (~08/2011) Family History Family History Father Gastric cancer Prostate cancer Family/Other Pancreas cancer Brother Skin cancer Surgical History Surgical History History of esophagogastroduodenoscopy (EGD) (~06/2019) History of liver biopsy History of medial meniscus repair of left knee (~12/2016) History of prostate surgery History of right inguinal hernia repair (~2011) History of surgery on right wrist Hx laparoscopic cholecystectomy (~10/2012) Status post left rotator cuff repair (~11/2020) Social History Social History Household Members: None Housing: House Are you a primary career development director to a significant other at home: No Do you presently have visiting nurse or other home services: No Alcohol intake: never Patient Tobacco Use Status: Never used Tobacco e-Cigarette/Vaping Use: Never Used Second Hand Smoke Exposure: No Use of substances other than those prescribed or required for medical reasons: No Substance Use Type Other:: former Are you DNR?: No Advance Directives: No Advance Directives Information Provided: Yes service: Yes Current occupational status: retired Cognitive needs: No Hearing needs: No Vision needs: Yes Meds Allergies Allergy/AdvReac Type Severity Reaction Status Date / Time morphine [MORPHINE] Allergy Intermediate HR DROPPED Verified 12/13/22 08:37 amoxicillin [Prevpac] AdvReac Intermediate depression Verified 12/13/22 08:37 (after taking for a few days) - includes most PPI clarithromycin [Prevpac] AdvReac Intermediate depression Verified 12/13/22 08:37 (after taking for a few days) - includes most PPI lansoprazole [Prevpac] AdvReac Intermediate depression Verified 12/13/22 08:37 (after taking for a few days) - includes most PPI ranitidine [Zantac] AdvReac Intermediate depression Verified 12/13/22 08:37 (after taking for a few months) Prilosec AdvReac Intermediate depression Uncoded 12/13/22 08:37 (after taking for a few days) - includes most PPI Exam Airway Mallampati Class: I TM Dist: >3cm Neck ROM: Full Heart: ok Lungs: ok Assessment and Plan Final Anesthetic Review NPO: Yes ASA Class: III Final Preanesthetic Review: No Changes in Pt Med Stat, Meds/Allgs Chart Reviewed, Consent Obtained/Reviewed and Anes Risks/Benef Reviewed Patient Risk: Intermediate Procedure Risk: Intermediate Anesthetic Plan Anesthetic Plan: MAC: and Agree w/ Assess. and Plan Disposition: Standard PACU
[2022-12-19] VITALS (8 sets, daily range): BP systolic 91–128; BP diastolic 51–72; PULSE 54–74; RESP 12–18; TEMP 36–37.2; O2SAT 95; BMI 22.8
--- NOTE | ~2022-12-19 | XR_ITS ---
EXAMINATION: XR CHEST CLINICAL INFORMATION: Right lung biopsy. COMPARISON: CT chest 12/03/2022. Chest radiograph 10/15/2022. TECHNIQUE: Frontal view of the chest was obtained. FINDINGS: Increased multifocal patchy bilateral airspace opacities. Trace amount of left-sided pleural fluid. Stable cardiomediastinal silhouette. No pneumothorax. No acute osseous abnormalities. XR/XR chest 1V IMPRESSION: 1. Worsening pulmonary aeration with increased multifocal patchy airspace opacities. 2. No pneumothorax.
[2022-12-19] MEDS: Lactated Ringers 1,000 ML 100 ML IVCONT (07:56)
--- NOTE | 2022-12-19 08:16 | MHC.SHP ---
Pre-Procedural Eval Section A Date of Service: 12/19/22 The patient is an INPATIENT: No Changes since office visit: No Cold of Flu in the past 2 weeks, No New Medical Problems, No Changes in Medication and No Patient answered all questions The History & Physical has been completed within 30 days and I have reviewed it.: Yes Section B Chief Complaint: Pneumonia, unspecified organism Allergies: Allergies Allergy/AdvReac Type Severity Reaction Status Date / Time morphine [MORPHINE] Allergy Intermediate HR DROPPED Verified 12/13/22 08:37 amoxicillin [Prevpac] AdvReac Intermediate depression Verified 12/13/22 08:37 (after taking for a few days) - includes most PPI clarithromycin [Prevpac] AdvReac Intermediate depression Verified 12/13/22 08:37 (after taking for a few days) - includes most PPI lansoprazole [Prevpac] AdvReac Intermediate depression Verified 12/13/22 08:37 (after taking for a few days) - includes most PPI ranitidine [Zantac] AdvReac Intermediate depression Verified 12/13/22 08:37 (after taking for a few months) Prilosec AdvReac Intermediate depression Uncoded 12/13/22 08:37 (after taking for a few days) - includes most PPI Plan I have reviewed the history and physical and performed a pertinent physical examination on my patient. No changes have occurred unless specified. Time Spent With Patient Time: Total time managing care of this patient today ____ minutes.
--- NOTE | 2022-12-19 12:41 | PM.OP ---
Brief Operative Note Date of Service: 12/19/22 Pre-op diagnosis: pneumonia Post-op diagnosis: same Procedure: Bronchoscopy with washings, brushings, transbronchial biopsies Implants: Surgeon: Chato Rowley MD Anesthesia: GLMA Was an Discharging Machine Operator used for this Procedure?: No Estimated blood loss (mL): 0 Condition: stable Disposition: same day
--- NOTE | 2023-01-27 05:30 | OP_ITS ---
DATE OF SERVICE: 12/19/2022 SURGEON: Chato Rowley MD PREOPERATIVE DIAGNOSIS: Pneumonia. POSTOPERATIVE DIAGNOSIS: Pneumonia. PROCEDURE PERFORMED: Bronchoscopy. ESTIMATED BLOOD LOSS: COMPLICATIONS: ANESTHESIA: LMA. ASSISTANTS: SPECIMENS: ASA CLASSIFICATION: 3. DESCRIPTION OF PROCEDURE: The patient was sedated and LMA was in place. The flexible digital bronchoscope was inserted via the LMA to the level of the larynx. The vocal cords moved symmetrically to the midline without any lesions or masses. After instilling lidocaine, the bronchoscope was then navigated to the level below the vocal cords. His trachea appeared to be patent, normal in appearance without any secretions or lesions. After instilling additional lidocaine, the bronchoscope was then navigated to the entire tracheobronchial tree that was examined up to the subsegmental level. No evidence of any endobronchial lesions or masses. No evidence of any secretions. Bronchial washings were collected bilaterally, both for culture and also for cytology. The bronchoscope was navigated to the right lower lobe where a microscopic brush was introduced in that area. Specimen was sent to the appropriate location. Using forceps, the bronchoscope was again navigated to the right lower lobe and transbronchial biopsies were collected, sent to Pathology in formalin. No evidence of any active bleeding and no epinephrine had to be used. Postoperatively, the patient did have a chest x-ray demonstrated no pneumothorax. Patient tolerated the procedure well. Vital signs were stable. The total endoscopic time was approximately 15 minutes. No complications noted. INTERPRETATION: 1. Successful bronchoscopy with bilateral washings for microbiology and cytology. 2. Brushings for microbiology. 3. Transbronchial biopsies of the right lower lobe for pathology. MD ELAINE Case/MODL / [id number]
== END 2022-12-19 10:55 | disposition home or self-care (01) ==
PROVIDERS: PCP Nurse Practitioner Family; Visit Provider Hospitalist
PROC: 0BJ08ZZ Inspection of Tracheobronchial Tree, Via Natural or Artificial Opening Endoscopic (ICD-10-PCS; CPT 31622; principal; 2022-12-19 08:30)
DX: J18.9 Pneumonia, unspecified organism (principal); I10 Essential (primary) hypertension; R00.1 Bradycardia, unspecified; I25.10 Atherosclerotic heart disease of native coronary artery without angina pectoris; E78.5 Hyperlipidemia, unspecified; R73.01 Impaired fasting glucose; C85.99 Non-Hodgkin lymphoma, unspecified, extranodal and solid organ sites; L63.0 Alopecia (capitis) totalis; N40.0 Benign prostatic hyperplasia without lower urinary tract symptoms; K29.70 Gastritis, unspecified, without bleeding; Z87.11 Personal history of peptic ulcer disease; Z87.898 Personal history of other specified conditions; Z86.19 Personal history of other infectious and parasitic diseases; Z88.1 Allergy status to other antibiotic agents; Z88.8 Allergy status to other drugs, medicaments and biological substances; Z98.890 Other specified postprocedural states
CPT/HCPCS: 31625; 31623; 71045; 87070; 87102; 87116; 87205; 87206; 88112; 88305; J0171; J3010

== ENCOUNTER 2023-01-16 13:24 | Outpatient (REF) | payer MEDICARE, SELFPAY ==
--- NOTE | ~2023-01-16 | XR_ITS ---
EXAMINATION: XR CHEST CLINICAL INFORMATION: Interstitial pulmonary disease. COMPARISON: None available. TECHNIQUE: 2 views of the chest were obtained. FINDINGS: The lungs are well-expanded with patchy atelectatic changes left lung base. Mild blunting of left CP angle from pleural thickening is noted The heart size and progress clarities normal. There is moderate spondylosis throughout dorsal spine. No aggressive lytic or sclerotic process seen. XR/XR chest 2V IMPRESSION: 1. Patchy atelectatic changes left lung base. 2. Mild blunting of left CP angle from pleural thickening 3. Moderate spondylosis throughout dorsal spine.
== END 2023-01-16 13:25 | disposition home or self-care (01) ==
LOC: HO.XRAY 13:24
PROVIDERS: PCP Nurse Practitioner Family; Visit Provider Hospitalist
DX: J84.9 Interstitial pulmonary disease, unspecified (principal)
CPT/HCPCS: 71046

== ENCOUNTER → 2023-01-23 10:02 | Outpatient (BNVA) | payer MEDICARE, SELFPAY | PROVIDERS: PCP Nurse Practitioner Family; Visit Provider Hospitalist | DX: J18.9 Pneumonia, unspecified organism (principal); C85.99 Non-Hodgkin lymphoma, unspecified, extranodal and solid organ sites | CPT/HCPCS: 99212 ==

== ENCOUNTER 2023-03-13 08:15 | Outpatient (AMB) | payer MEDICARE, SELFPAY ==
[2023-03-13 08:42] VITALS: BP 118/70; PULSE 66; O2SAT 95; BMI 25.0
--- NOTE | 2023-03-13 08:42 | A.OFFPC_ITS ---
Vital Signs 03/13/23 08:42 Height 5 ft 9 in Weight 169 lb 6 oz BMI 25.0 BP 118/70 Blood Pressure Location Lt brachial Position Sitting Pulse 66 Pulse Source Pulse Oximeter Pulse Oximetry (%) 95 Oxygen Delivery Method Room Air Intake Visit Reasons: 6m follow up Allergies morphine [MORPHINE] Allergy (Intermediate, Verified 03/13/23 08:46) HR DROPPED clarithromycin [Prevpac] Adverse Reaction (Intermediate, Verified 03/13/23 08:46) depression (after taking for a few days) - includes most PPI lansoprazole [Prevpac] Adverse Reaction (Intermediate, Verified 03/13/23 08:46) depression (after taking for a few days) - includes most PPI ranitidine [Zantac] Adverse Reaction (Intermediate, Verified 03/13/23 08:46) depression (after taking for a few months) Prilosec Adverse Reaction (Intermediate, Uncoded 03/13/23 08:46) depression (after taking for a few days) - includes most PPI Tobacco use date assessed: 03/13/23 Fall risk assessment: No Falls in past year Last assessed Fall Risk: 03/13/23 Dental Screening Dental Screen Date: 03/13/23 Did you have a dental visit in the last 12 months?: Yes Did you have a dental problem in the last 6 months where you did not have access to dental care?: No Was dental information given to patient?: Patient has dentist HPI 6m follow up HPI Details Pt c/o increased cough and shortness of breath. Pt is following up with pulmonology, has a follow up next month. Will order chest xr. Will most likely send another course of prednisone. He does report subjective fevers. Denies chills, dizziness, and chest pain. Pt does seem frustrated with his condition(s). Has a follow up with rheumatology as well in the near future. [facility] Medical History (Updated 03/13/23 @ 09:10 by NOY Fuentes) Abnormal biliary HIDA scan Alopecia (capitis) totalis Benign essential hypertension Benign prostatic hyperplasia Bradycardia [place] of foot Diverticulosis Dyslipidemia Gastritis Hepatitis C History of drug abuse History of gastric ulcer History of hepatitis C History of Lyme disease (~2009) ILD (interstitial lung disease) Impaired fasting glucose Internal hemorrhoids Kidney stones Left shoulder pain Lumbar spondylosis Normal colonoscopy (~08/2011) Right knee meniscal tear Surgical History History of esophagogastroduodenoscopy (EGD) (~06/2019) History of liver biopsy History of medial meniscus repair of left knee (~12/2016) History of prostate surgery History of right inguinal hernia repair (~2011) History of surgery on right wrist Hx laparoscopic cholecystectomy (~10/2012) Status post left rotator cuff repair (~11/2020) Family History Father Gastric cancer Prostate cancer Family/Other Pancreas cancer Brother Skin cancer Social History Household Members: None Housing: House Are you a primary manager medicare marketing to a significant other at home: No Do you presently have visiting nurse or other home services: No Alcohol intake: never Patient Tobacco Use Status: Never used Tobacco e-Cigarette/Vaping Use: Never Used Second Hand Smoke Exposure: No service: Yes Current occupational status: retired Cognitive needs: No Hearing needs: No Vision needs: Yes Questionnaire Thrive Questionnaire Date Thrive assessed: 09/12/22 AUDIT C Alcohol Use Questionnaire (AUDIT-C) 1. How often do you have a drink containing alcohol?: Never Total Score: 0 BLAIR-7 AMB Questionnaire BLAIR-7 Date BLAIR - 7 assessed: 09/12/22 Feeling nervous, anxious, or on edge: 0 = Not at all Not being able to stop or control worryin = Not at all Worrying too much about different things: 0 = Not at all Trouble relaxin = Not at all Being so restless that it is hard to sit still: 0 = Not at all Becoming easily annoyed or irritable: 0 = Not at all Feeling afraid as if something awful might happen: 0 = Not at all Total BLAIR-7 score (0-4 normal; 5-9 mild; 10-14 moderate; 15-21 severe): 0 Source: Developed by Drs. Joshua Carreon, Erika Gomez, Filipe Hein and colleagues, with an educational paige from [employer] Review of Systems Const Reports as per HPI Physical exam (Primary Care) Vital Signs: Last Vital Signs Pulse 66 03/13/23 08:42 BP 118/70 03/13/23 08:42 Pulse Ox 95 03/13/23 08:42 Oxygen Delivery Method Room Air 03/13/23 08:42 BMI result Body Mass Index 25.0 Tobacco/Smoking Status: Tobacco use Status Tobacco use date assessed 03/13/23 03/13/23 08:48 Patient Tobacco Use Status Never used Tobacco 03/13/23 08:48 e-Cigarette/Vaping Use Never Used 03/13/23 08:48 Thrive Assessment: Date of Thrive Assessment Date Thrive assessed 09/12/22 03/13/23 08:48 Const General: cooperative Orientation/consciousness: patient oriented x3 Neck Neck: Yes no lymphadenopathy Resp Other: lungs are slightly diminished though moving air bilat Effort & Inspection: normal respiratory effort and Actively coughing Cardio Rate: regular rate Rhythm: regular rhythm Heart sounds: S1 normal heart sound present and S2 normal heart sound present Neuro General: patient oriented x3 Psych Appearance: grossly normal Mental Status: mental status grossly normal Speech and movement: Normal speech and movement present Affect: normal affect Attitude: cooperative Thought process: Normal thought process present Thought content: Normal thought content present Insight: Good insight present (Psych) Judgement: Good judgement present (Psych) Assessment and Plan Assessment & Plan (1) ILD (interstitial lung disease): Code(s): J84.9 - Interstitial pulmonary disease, unspecified Plan: Chest xr ordered (2) Increasing shortness of breath: Code(s): R06.02 - Shortness of breath Plan: Chest xr ordered, follow up with pulmonary Plan The patient agreed to the use of a medical supply technician for this encounter. Scribed for ELEANOR Gold by Yaa Penaloza medical supply technician, on 03/13/2023 at 09:00 EST. Orders: Orders XR chest 2V Today J84.9 - Interstitial pulmonary disease, unspecified, R06.02 - Shortness of breath Coding Level of Care Code Est Pt Level 3 (47833) Diagnoses ILD (interstitial lung disease) J84.9 Increasing shortness of breath R06.02
== END 2023-03-13 10:01 | disposition home or self-care (01) ==
PROVIDERS: Visit Provider Nurse Practitioner Family
DX: J84.9 Interstitial pulmonary disease, unspecified (principal); R06.02 Shortness of breath
CPT/HCPCS: 99213

== ENCOUNTER 2023-03-13 09:20 | Outpatient (REF) | payer MEDICARE, SELFPAY ==
--- NOTE | ~2023-03-13 | XR_ITS ---
EXAMINATION: XR CHEST CLINICAL INFORMATION: Interstitial pulmonary disease COMPARISON: Chest radiograph from 01/16/2023 TECHNIQUE: 2 views of the chest were obtained. FINDINGS: Interval development of patchy and consolidative radiopacities along the right lateral mid lung field and right lung base which may reflect evolving infectious/inflammatory etiology. Chronic interstitial lung markings. Bibasilar atelectasis versus scarring, left greater than right. No pneumothorax. Trachea is midline. Cardiac mediastinal silhouette is stable. Aorta demonstrates atherosclerotic calcifications. Degenerative changes of the thoracolumbar spine with anterior bridging osteophytes. Soft tissues are unremarkable. XR/XR chest 2V IMPRESSION: 1. Interval development of patchy and consolidative radiopacities along the right lateral mid lung field and right lung base which may reflect evolving infectious/inflammatory etiology. 2. Chronic interstitial lung markings. 3. Bibasilar atelectasis versus scarring, left greater than right.
[2023-03-13 11:14] LABS: MANUAL DIFF FLAG NO
[2023-03-13 11:50] LABS: Basophils Absolute Auto 0.1 X10*3/uL (0.0-0.2); Basophils Percent Auto 0.8 % (0-2); Eosinophils Absolute Auto 0.3 X10*3/uL (0.0-0.4); Eosinophils Percent Auto 2.4 % (0-4); Hematocrit 44.2 % (42.0-52.0); Hemoglobin 14.5 g/dl (14.0-18.0); Imm Gran Abs Auto 0.08 X10*3/uL (0.00-0.03); Imm Gran Pct Auto 0.7 % (0.0-0.4); Lymphocytes Absolute Auto 0.8 X10*3/uL (1.2-4.9); Lymphocytes Percent Auto 6.7 % (20-40); Mean Corpuscular HGB Conc 32.8 g/dl (31.0-36.0); Mean Corpuscular Hemoglobin 29.1 pg (27.0-33.0); Mean Corpuscular Volume 88.8 fL (80.0-98.0); Mean Platelet Volume 10.1 fL (9.4-12.4); Monocytes Absolute Auto 1.2 X10*3/uL (0.1-1.2); Monocytes Percent Auto 10.2 % (2-11); Neutrophils Absolute Auto 9.1 x10*3/uL (2.0-8.3); Neutrophils Percent Auto 79.2 % (45-73); Platelet Count 329 X10*3/uL (160-400); Red Blood Count 4.98 X10*6/uL (4.60-5.80); Red Cell Distribution Width 13.6 % (11.0-16.0); White Blood Count 11.5 X10*3/uL (4.8-10.8)
[2023-03-13 11:56] LABS: Alanine Aminotransferase 25 U/L (0-40); Alkaline Phosphatase 67 U/L (39-117); Anion Gap 18 (12-20); Aspartate Amino Transferase 20 U/L (5-37); Bilirubin Total 0.5 mg/dL (0.0-1.0); Blood Urea Nitrogen 13 mg/dL (9-16); Calcium 10.1 mg/dL (8.4-10.2); Carbon Dioxide 22 mmol/L (22-29); Chloride 102 mmol/L (96-108); Estimated Glomerular Filt Rate > 60; Glucose Random 98 mg/dL (60-115); Lactate Dehydrogenase 220 U/L (118-273); Potassium 4.3 mmol/L (3.3-5.1); Sodium 138 mmol/L (135-145); Total Protein 8.1 g/dL (6.5-8.0)
== END 2023-03-13 09:21 | disposition home or self-care (01) ==
LOC: HO.HMGCX 09:20
PROVIDERS: PCP Nurse Practitioner Family; Visit Provider Internal Medicine Medical Oncology
DX: J84.9 Interstitial pulmonary disease, unspecified (principal); R06.02 Shortness of breath; C85.99 Non-Hodgkin lymphoma, unspecified, extranodal and solid organ sites
CPT/HCPCS: 36415; 71046; 80053; 83615; 85025

== ENCOUNTER 2023-03-14 10:27 | Outpatient (AMB) | payer MEDICARE, SELFPAY ==
[2023-03-14 10:43] VITALS: BP 120/70; PULSE 71; O2SAT 95; BMI 24.1
--- NOTE | 2023-03-14 10:43 | A.OFFVIS_ITS ---
Intake Vital Signs 03/14/23 10:43 Height 5 ft 9 in Weight 163 lb BMI 24.1 BP 120/70 Blood Pressure Location Lt brachial Position Sitting Pulse 71 Pulse Source Pulse Oximeter Pulse Oximetry (%) 95 Oxygen Delivery Method Room Air Intake Visit Reasons: Pneumonia [employer] Mechanic Required: No Allergies morphine [MORPHINE] Allergy (Intermediate, Verified 03/14/23 10:45) HR DROPPED clarithromycin [Prevpac] Adverse Reaction (Intermediate, Verified 03/14/23 10:45) depression (after taking for a few days) - includes most PPI lansoprazole [Prevpac] Adverse Reaction (Intermediate, Verified 03/14/23 10:45) depression (after taking for a few days) - includes most PPI ranitidine [Zantac] Adverse Reaction (Intermediate, Verified 03/14/23 10:45) depression (after taking for a few months) Prilosec Adverse Reaction (Intermediate, Uncoded 03/14/23 10:45) depression (after taking for a few days) - includes most PPI HPI HPI Comments History of Present Illness Details The patient is a 67-year-old gentleman here for evaluation of an abnormal CT scan of the chest. The patient was in usual state health until in 2021 when he underwent a screening endoscopy for the evaluation reflux disease. 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 The patient did undergo radiation therapy. He was also referred to Oncology. Further workup included a PET scan. This was done in July 2022 and I did review the results. No significant FDG activity in the parenchymal lung tissue and no abnormalities noted. The patient did not have any significant lymphadenopathy either. Subsequently after that in September he had a CT scan of the abdomen and pelvis that demonstrated some lung cuts with bilateral areas of airspace disease and consolidations. Patient was asymptomatic. He was placed on antibiotics at that time and he started expectorating some. He was not having any respiratory issues at that time. Subsequently the patient developed the flu she started developing significant myalgia and fatigue arthralgias and was not feeling well. After that he started having worsening cough and shortness of breath and was not feeling well. He started developing pleuritic discomfort. He had a repeat CT scan at that time in October 2022 which was personally by me now demonstrating bilateral peripheral patchy consolidations with some cavitations which appears to me more likely a component of post viral Staph aureus infection. That or some degree of bacteremia. The patient was having significant symptoms and he was seen by urgent care with placement 7 days of Bactrim and also prednisone and he is significantly better at this time. Therefore likely that by treating the likely staph infection is feeling better. That being said he was having some findings on the CT scan of the abdomen prior to being sick. The question still stands is could he have some underlying bronch is associated lymphoma in addition to the gastric lymphoma of the very unlikely. Based on the fact the patient is feeling better on the Bactrim will going to extend the course the Bactrim to treating for total 21 days. Then we will repeat the imaging studies as long as he is doing well. If the patient is not doing well then we will consider bronchoscopy earlier on. Otherwise will repeat the CT scan in around 6 weeks to see if she still has any residual findings and if he does will go ahead and intervene with a diagnostic bronchoscopy. 12/11/2022 The patient is here for a pulmonary follow up visit. The patient completed all the antibiotics. Initially feeling better, but, then started complaining of the dry cough and the left sided chest pain. Moderate in severity. He could not tolerate the prednisone after one day. Complaining of joing pains as well. He recently received a shot for his joint pain with likely cortisone which improved his symptoms. He has a repeat CT chest with persistent patchy consolidations and some scarring. Will need to undergo bloodwork and a bronchoscopy at this time. 01/23/2023 the patient is here for a pulmonary follow-up visit. He is feeling better on the prednisone. He is back to riding his bike. Has some limitations but much improved. Also still has some chest tightness around that left hemithorax but is slowly getting better. He was evaluated by Rheumatology. Blood work was all negative. Now is coming up to the end of the month on 10 mg of prednisone. Will go ahead and try to wean him slowly down until completely off in about 6 weeks. Afterwards will plan to repeat the CT scan in around 8-10 weeks to assess the area involved. Patient did have a chest x-ray on the 16 of January which I personally reviewed demonstrating some interval improvement of that airspace disease already although not completely back to baseline. 03/14/2023 the patient is here for sick visit. The patient apparently started prednisone his symptoms started to worsen again. Complaining of cough shortness of breath. Also has arthritis seems to be more active. He did follow-up with Rheumatology but his symptoms were pretty stable in the prednisone. He does have a follow-up pending. In the meantime because of his worsening respiratory symptoms his primary care doctor center for an x-ray demonstrating a new opacity in the right hemithorax suggesting again recurrent pneumonia. 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 For although he is also at risk for bacterial infections. I will place him on Levaquin. Will request a sputum culture. The patient exam bringing significant mucus at this time. He had a bad reaction to the prednisone however. Therefore, would not be unreasonable to put him on immunomodulator therapy to help him with his rheumatoid arthritis and also his ongoing inflammatory condition and the lungs. Therefore, request blood work to make sure that his liver function and kidney function studies are normal and will start him immunomodulator therapy. [facility] Medical History (Updated 03/13/23 @ 09:10 by Rudolph Kumari, [facility]) Abnormal biliary HIDA scan Alopecia (capitis) totalis Benign essential hypertension Benign prostatic hyperplasia Bradycardia [place] of foot Diverticulosis Dyslipidemia Gastritis Hepatitis C History of drug abuse History of gastric ulcer History of hepatitis C History of Lyme disease (~2009) ILD (interstitial lung disease) Impaired fasting glucose Internal hemorrhoids Kidney stones Left shoulder pain Lumbar spondylosis Normal colonoscopy (~08/2011) Right knee meniscal tear Surgical History History of esophagogastroduodenoscopy (EGD) (~06/2019) History of liver biopsy History of medial meniscus repair of left knee (~12/2016) History of prostate surgery History of right inguinal hernia repair (~2011) History of surgery on right wrist Hx laparoscopic cholecystectomy (~10/2012) Status post left rotator cuff repair (~11/2020) Family History Father Gastric cancer Prostate cancer Family/Other Pancreas cancer Brother Skin cancer Social History Household Members: None Housing: House Are you a primary primary care nurse to a significant other at home: No Do you presently have visiting nurse or other home services: No Alcohol intake: never Patient Tobacco Use Status: Never used Tobacco e-Cigarette/Vaping Use: Never Used Second Hand Smoke Exposure: No service: Yes Current occupational status: retired Cognitive needs: No Hearing needs: No Vision needs: Yes Review of Systems Const Denies chills, Reports fatigue, Denies fever(s) and Denies headache(s) ENT Denies headache(s), Denies odynophagia, Denies sinus pain and Denies sore throat Card Reports chest pain, Denies palpitations, Denies dyspnea and Reports dyspnea on exertion Resp Denies chest congestion, Reports cough, Reports pain on inspiration, Reports pain with cough, Denies dyspnea and Reports dyspnea on exertion GI Denies abdominal pain, Denies constipation, Denies heartburn, Denies diarrhea and Denies odynophagia Denies dysuria and Denies nocturia Musc Reports stiffness (residual stiffness in the left shoulder) Neuro Denies headache(s) Endo Reports fatigue and Denies palpitations Physical Exam Vital Signs: Last Vital Signs Pulse 71 03/14/23 10:43 BP 120/70 03/14/23 10:43 Pulse Ox 95 03/14/23 10:43 Oxygen Delivery Method Room Air 03/14/23 10:43 BMI result Body Mass Index 24.1 Const General: cooperative and healthy appearing Nutritional Appearance: well nourished Orientation/consciousness: patient oriented x3 Limitations: no limitations HEENT Head: Yes normal to inspection Eyes General: appearance normal, both eyes and all related structures Neck Neck: Yes normal visual inspection Chest Chest palpation & inspection: normal palpation of entire chest wall Resp Effort & Inspection: normal respiratory effort and able to speak in complete sentences Auscultation: diminished lung sounds Cardio Rhythm: regular rhythm Heart sounds: S1 normal heart sound present and S2 normal heart sound present Neuro General: patient oriented x3 Extrem General: Yes no clubbing, cyanosis or edema Assessment & Plan Assessment & Plan (1) ILD (interstitial lung disease): Code(s): J84.9 - Interstitial pulmonary disease, unspecified (2) Pneumonia: Comment: Likely post infuenza bacterial infection Code(s): J18.9 - Pneumonia, unspecified organism Qualifiers: Laterality: bilateral Lung location: unspecified part of lung Pneumonia type: due to unspecified organism Qualified Code(s): J18.9 - Pneumonia, unspecified organism Plan Suspicious for Cryptogenic organizing pneumonia, now with recurrence Rec Complete Levaquin Bloodwork will start Immunomodulator to help with the inflammatory symptoms, but first need to review labs and sputum cx sputum culture if able Has a CT chest schedule for 2-3 weeks F/U 3-4 weeks Orders: Orders Basic Metabolic Panel 03/14/23 J18.9 - Pneumonia, unspecified organism, J84.9 - Interstitial pulmonary disease, unspecified Cortisol Random 03/14/23 J18.9 - Pneumonia, unspecified organism, J84.9 - Interstitial pulmonary disease, unspecified Liver Panel 03/14/23 J18.9 - Pneumonia, unspecified organism, J84.9 - Interstitial pulmonary disease, unspecified Complete Blood Count Auto Diff 03/14/23 J18.9 - Pneumonia, unspecified organism, J84.9 - Interstitial pulmonary disease, unspecified Erythrocyte Sedimentation Rate 03/14/23 J18.9 - Pneumonia, unspecified organism, J84.9 - Interstitial pulmonary disease, unspecified Immunoglobulins,IgG IgA IgM 03/14/23 J18.9 - Pneumonia, unspecified organism, J84.9 - Interstitial pulmonary disease, unspecified Sputum Cult + Gram stain 03/14/23 J18.9 - Pneumonia, unspecified organism Coding Level of Care Code Est Pt Level 5 (35137) Diagnoses ILD (interstitial lung disease) J84.9 Pneumonia J18.9 Laterality: bilateral Lung location: unspecified part of lung Pneumonia type: due to unspecified organism Time Spent (min) 45
== END 2023-03-14 11:09 | disposition home or self-care (01) ==
PROVIDERS: PCP Nurse Practitioner Family; Visit Provider Hospitalist
DX: J84.9 Interstitial pulmonary disease, unspecified (principal)
CPT/HCPCS: 99215

== ENCOUNTER 2023-03-14 10:27 | Outpatient (REF) | payer MEDICARE, SELFPAY ==
[2023-03-14 11:40] LABS: MANUAL DIFF FLAG NO
[2023-03-14 11:55] LABS: Basophils Absolute Auto 0.1 X10*3/uL (0.0-0.2); Basophils Percent Auto 0.6 % (0-2); Eosinophils Absolute Auto 0.3 X10*3/uL (0.0-0.4); Hematocrit 42.5 % (42.0-52.0); Hemoglobin 13.7 g/dl (14.0-18.0); Imm Gran Abs Auto 0.05 X10*3/uL (0.00-0.03); Imm Gran Pct Auto 0.5 % (0.0-0.4); Lymphocytes Absolute Auto 0.6 X10*3/uL (1.2-4.9); Lymphocytes Percent Auto 6.1 % (20-40); Mean Corpuscular HGB Conc 32.2 g/dl (31.0-36.0); Mean Corpuscular Volume 89.9 fL (80.0-98.0); Mean Platelet Volume 9.3 fL (9.4-12.4); Monocytes Absolute Auto 0.9 X10*3/uL (0.1-1.2); Monocytes Percent Auto 8.2 % (2-11); Neutrophils Absolute Auto 8.5 x10*3/uL (2.0-8.3); Neutrophils Percent Auto 81.6 % (45-73); Platelet Count 326 X10*3/uL (160-400); Red Blood Count 4.73 X10*6/uL (4.60-5.80); Red Cell Distribution Width 13.2 % (11.0-16.0); White Blood Count 10.4 X10*3/uL (4.8-10.8)
[2023-03-14 12:36] LABS: Erythrocyte Sedimentation Rate 75 MM/HR (0-15)
[2023-03-14 14:17] LABS: Alanine Aminotransferase 29 U/L (0-40); Albumin Level 3.8 g/dL (3.5-5.0); Alkaline Phosphatase 62 U/L (39-117); Anion Gap 16 (12-20); Aspartate Amino Transferase 20 U/L (5-37); Bilirubin Direct 0.2 mg/dL (0.0-0.5); Bilirubin Total 0.4 mg/dL (0.0-1.0); Blood Urea Nitrogen 13 mg/dL (9-16); Calcium 9.8 mg/dL (8.4-10.2); Carbon Dioxide 23 mmol/L (22-29); Chloride 104 mmol/L (96-108); Estimated Glomerular Filt Rate > 60; Glucose Random 94 mg/dL (60-115); Potassium 4.6 mmol/L (3.3-5.1); Sodium 138 mmol/L (135-145); Total Protein 7.8 g/dL (6.5-8.0)
[2023-03-17 17:17] LABS: IgA 181 mg/dL (70-320); IgG 1346 mg/dL (600-1540); IgM 109 mg/dL (50-300)
== END 2023-03-14 10:28 | disposition home or self-care (01) ==
LOC: HO.LAB 10:27
PROVIDERS: PCP Nurse Practitioner Family; Visit Provider Hospitalist
DX: J84.9 Interstitial pulmonary disease, unspecified (principal)
CPT/HCPCS: 36415; 80048; 80076; 82533; 82784; 85025; 85652; 99212

== ENCOUNTER 2023-03-16 | Outpatient (REF) | payer MEDICARE, SELFPAY | END 2023-03-16 00:01 | disposition home or self-care (01) | LOC: HO.LNP | PROVIDERS: Visit Provider Hospitalist | DX: J18.9 Pneumonia, unspecified organism (principal) | CPT/HCPCS: 87070; 87205 ==

== ENCOUNTER 2023-03-19 07:23 | Outpatient (AMB) | payer MEDICARE, SELFPAY ==
[2023-03-19 07:48] VITALS: BP 106/65; PULSE 76; TEMP 36.7; BMI 24.4
--- NOTE | 2023-03-19 07:48 | MHC.OFFVIS ---
Intake Vital Signs 03/19/23 07:48 Height 5 ft 9 in Weight 165 lb 5.547 oz BMI 24.4 BP 106/65 Blood Pressure Location Rt brachial Position Sitting Pulse 76 Pulse Source Auscultation Temp 98.0 F Temp Source Temporal Artery Scan Intake Visit Reasons: RA Allergies morphine [MORPHINE] Allergy (Intermediate, Verified 03/14/23 10:45) HR DROPPED clarithromycin [Prevpac] Adverse Reaction (Intermediate, Verified 03/14/23 10:45) depression (after taking for a few days) - includes most PPI lansoprazole [Prevpac] Adverse Reaction (Intermediate, Verified 03/14/23 10:45) depression (after taking for a few days) - includes most PPI ranitidine [Zantac] Adverse Reaction (Intermediate, Verified 03/14/23 10:45) depression (after taking for a few months) Prilosec Adverse Reaction (Intermediate, Uncoded 03/14/23 10:45) depression (after taking for a few days) - includes most PPI Medication List - Last Reconciled 03/19/23 by Lee Ann Goyal MD famotidine 10 mg PO DAILY levofloxacin 500 mg PO DAILY 14 days HPI HPI Comments History of Present Illness Details Patient returns for follow-up. Patient stated that since prednisone was tapered off last month has been having worsening pulmonary symptoms including chest pain, dry cough, fatigue, fevers up to 100.6, as well as bilateral hands, fingers, knees, swelling and stiffness. He was evaluated by Dr. Rowley 5 days ago and was started on Levaquin for 2 weeks. Patient denies any skin rashes. Initial history: This is a 67-year-old male presents for evaluation of diffuse joint pain. 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 He also has history of alopecia [facility] since 1986. 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 Since then he has limited extension of right wrist. He states that back in August of 2022 he started having right wrist pain and swelling. He was evaluated by [facility] and received an steroid injection in the right wrist which gave him total relief for a few weeks. In September he was having fatigue and some cough. CT chest showed findings suspicious of pneumonia. He received multiple rounds of antibiotics. He also received few courses of prednisone which provided significant relief of his overall joint pain. States that he would have pain in his wrists, hands, stiffness, difficulty closing his fingers, shoulder and elbow stiffness. He was evaluated by [facility] 4 days ago and received 2 injections in the left wrist which gave him dramatic relief of his generalized joint pain and stiffness. Patient is unaware of any family history of autoimmune rheumatic disease. He continues to take meloxicam. [facility] Medical History (Updated 03/19/23 @ 13:46 by Lee Ann Goyal MD) Abnormal biliary HIDA scan Alopecia (capitis) totalis Benign essential hypertension Benign prostatic hyperplasia Bradycardia [place] of foot Diverticulosis Dyslipidemia Gastritis History of gastric ulcer History of hepatitis C History of Lyme disease (~2009) ILD (interstitial lung disease) Impaired fasting glucose Internal hemorrhoids Kidney stones Left shoulder pain Lumbar spondylosis Myopathy Normal colonoscopy (~08/2011) Rheumatoid arthritis Right knee meniscal tear Scleroderma Screening for viral disease Surgical History History of esophagogastroduodenoscopy (EGD) (~06/2019) History of liver biopsy History of medial meniscus repair of left knee (~12/2016) History of prostate surgery History of right inguinal hernia repair (~2011) History of surgery on right wrist Hx laparoscopic cholecystectomy (~10/2012) Status post left rotator cuff repair (~11/2020) Family History Father Gastric cancer Prostate cancer Family/Other Pancreas cancer Brother Skin cancer Social History Household Members: None Housing: House Are you a primary day care home mother to a significant other at home: No Do you presently have visiting nurse or other home services: No Alcohol intake: never Patient Tobacco Use Status: Never used Tobacco e-Cigarette/Vaping Use: Never Used Second Hand Smoke Exposure: No service: Yes Current occupational status: retired Cognitive needs: No Hearing needs: No Vision needs: Yes Review of Systems Const Reports fatigue and Reports fever(s) Card Reports dyspnea Resp Reports cough and Reports dyspnea Musc Reports arthralgias, Reports joint swelling, Reports limited range of motion and Reports stiffness Endo Reports fatigue Physical Exam Vital Signs: Last Vital Signs Temp 98.0 F 03/19/23 07:48 Pulse 76 08/09/23 07:48 BP 106/65 03/19/23 07:48 BMI result Body Mass Index 24.4 Const General: cooperative, healthy appearing and comfortable Nutritional Appearance: average body habitus Orientation/consciousness: patient oriented x3 Limitations: no limitations HEENT Head: Yes normocephalic and Yes atraumatic Mouth: moist mucous membranes Resp Effort & Inspection: normal respiratory effort, able to speak in complete sentences and Actively coughing Quality: dry (Intermittent) Auscultation: diminished lung sounds on the right in the lower lung deleon Cardio Rate: regular rate GI Inspection: No distended Palpation (GI): Soft to palpation and nontender Skin Other: Alopecia [facility] General skin exam: no rashes or lesions noted Neuro General: patient oriented x3 Extrem Other: Right hand swollen fingers. Diffusely tender PIP joints Positive MCP squeeze test right hand, significantly reduced right hand dough mixer strength Left hand positive MCP squeeze test and diffusely tender PIP joints Osteoarthritic changes of both hands No swollen or tender joints Limited right wrist extension (chronic unchanged) Bilateral feet bunions Bilateral toe and finger nail ridging Normal finger nailfold capillaroscopy Assessment & Plan Assessment & Plan (1) Inflammatory arthritis: Code(s): M19.90 - Unspecified osteoarthritis, unspecified site Plan: This is a 67-year-old male with past medical history of recently diagnosed gastric MALT lymphoma s/p radiation, alopecia at [facility] who presents for evaluation of diffuse joint pain stiffness and swelling.? For about 10 months or so patient has had fatigue, intermittent fevers, chest pain and nonproductive cough and intermittent inflammatory arthritis. Symptoms improved with prednisone. He gets recurrent lung infiltrates. Per pulmonology patient likely has cryptogenic organizing pneumonia. This can be seen in setting of underlying autoimmune rheumatic disease. Will order comprehensive serology to screen for underlying autoimmune rheumatic disease. Patient is currently taking a Levaquin course prescribed by Pulmonary. Patient does not want to combine steroids and Levaquin for fear of tendon rupture. Advised patient to call our office as soon as he completes Levaquin course. Will plan to restart prednisone and will consider adding a DMARD such as azathioprine. Will reach out to Dr. Rowley to discuss his case Follow-up in 2 months Plan I spent 46 minutes reviewing patient's chart, evaluating patient, ordering diagnostic workup, counseling patient and documenting in the chart Orders: Orders Rheumatoid Factor Today G72.9 - Myopathy, unspecified, M06.9 - Rheumatoid arthritis, unspecified MSA Panel Extended Today G72.9 - Myopathy, unspecified Scleroderma 12 Panel Today G72.9 - Myopathy, unspecified, M34.9 - Systemic sclerosis, unspecified Creatine Kinase Total Today G72.9 - Myopathy, unspecified Aldolase Today G72.9 - Myopathy, unspecified T Spot TB Today Z11.7 - Encounter for testing for latent tuberculosis infection Thiopurine Methyltransferase Today Z51.81 - Encounter for therapeutic drug level monitoring, Z79.624 - equipment operator intermodal yard (current) use of inhibitors of nucleotide synthesis Hepatitis A,B,C Profile Today Z11.59 - Encounter for screening for other viral diseases Anti Extractable Nuclear Ag Today G72.9 - Myopathy, unspecified Anti DNA DS Antibody Today G72.9 - Myopathy, unspecified Complement C3 Today G72.9 - Myopathy, unspecified Complement C4 Today G72.9 - Myopathy, unspecified Erythrocyte Sedimentation Rate Today G72.9 - Myopathy, unspecified Protein Creatinine Ratio, Ur Today G72.9 - Myopathy, unspecified UA w Microscopic Today G72.9 - Myopathy, unspecified Sjogren's Antibodies Today G72.9 - Myopathy, unspecified Hepatitis C Viral Load Today B19.20 - Unspecified viral hepatitis C without hepatic coma Coding Level of Care Code Est Pt Level 5 (90216) Diagnoses Inflammatory arthritis M19.90
== END 2023-03-19 08:12 | disposition home or self-care (01) ==
PROVIDERS: PCP Nurse Practitioner Family; Visit Provider Student in an Organized Health Care Education/Training Program
DX: M06.09 Rheumatoid arthritis without rheumatoid factor, multiple sites (principal); G72.9 Myopathy, unspecified
CPT/HCPCS: 99215

== ENCOUNTER → 2023-03-19 07:23 | Outpatient (BNVA) | payer MEDICARE, SELFPAY | PROVIDERS: Visit Provider Student in an Organized Health Care Education/Training Program | DX: M19.90 Unspecified osteoarthritis, unspecified site (principal); M06.9 Rheumatoid arthritis, unspecified; Z51.81 Encounter for therapeutic drug level monitoring; Z11.7 Encounter for testing for latent tuberculosis infection; Z11.59 Encounter for screening for other viral diseases; G72.9 Myopathy, unspecified; M34.9 Systemic sclerosis, unspecified; B19.20 Unspecified viral hepatitis C without hepatic coma; Z79.624 Long term (current) use of inhibitors of nucleotide synthesis | CPT/HCPCS: 36415; 81001; 82085; 82550; 82657; 83516; 83520; 84156; 84182; 85652; 86160; 86225; 86235; 86431; 86481; 86704; 86706; 86709; 86803; 87340; 87522; 99212 ==

== ENCOUNTER 2023-03-19 08:19 | Outpatient (REF) | payer MEDICARE, SELFPAY ==
[2023-03-19 10:39] LABS: Appearance Urine Cloudy; Color Urine Yellow; Glucose Urine UA Negative (Negative); Leukocyte Esterase Urine Negative (Negative); Nitrite Urine Negative (Negative); Specific Gravity - Urine 1.025 (1.005-1.025); UMIC TRIGGER UA YES; Urine Blood Small (1+) (Negative); Urine Ketones Negative (Negative); Urine Protein Trace mg/dL (Neg-Trace)
[2023-03-19 10:49] LABS: Bacteria Urine None Seen (None Seen); Calcium Oxalate Crystals Urine Present; RBC Urine 0-2 /HPF (0-2); Squamous Epithelial Cell Urine 0-2 /HPF (0-2); WBC Urine 0-5 /HPF (0-5)
[2023-03-19 11:16] LABS: HBS Num1 0.16 mIU/mL (0-7.99); HBc Num1 0.07 S/CO (0.00-0.79); HBsAGNum1 0.55 S/CO (0.00-0.99); Hepatitis B Core Antibody Nonreactive (Nonreactive); Hepatitis B Surface Antigen Negative (Negative); ~HepC Num1 4.39 S/CO (0.00-0.79); ~Hepatitis A Antibody IgM Nonreactive (Nonreactive); ~Hepatitis B Surface Antibody NONREACTIVE (Nonreactive); ~Hepatitis C Antibody Reactive (Nonreactive)
[2023-03-19 11:19] LABS: Creatinine Urine 194.38 mg/dL; Total Protein Urine Random 20 mg/dL (<12)
[2023-03-19 11:31] LABS: Erythrocyte Sedimentation Rate 75 MM/HR (0-15)
[2023-03-19 11:51] LABS: Rheumatoid Factor < 13.0 IU/mL (<15.0)
[2023-03-21 13:08] LABS: Complement C3 209 mg/dL (82-185)
[2023-03-21 16:28] LABS: TS Negative Control Passed; TS Panel A 0; TS Panel B 0; TS Positive Control Passed; TSpotTB Negative (Negative)
[2023-03-21 20:09] LABS: Anti DNA DS Antibody 84 IU/mL; Antibody to SS-A Antigen <1.0 NEG AI (<1.0 NEG); Antibody to SS-B Antigen <1.0 NEG AI (<1.0 NEG); SM/Ribonucleoprotein Ab <1.0 NEG AI (<1.0 NEG); Smith Protein <1.0 NEG AI (<1.0 NEG)
[2023-03-22 19:44] LABS: HCV Log PCR <1.18 NOT DETECTED Log IU/mL (NOT DETECTED); HepC Viral Load <15 NOT DETECTED IU/mL (NOT DETECTED)
[2023-03-25 22:07] LABS: Aldolase 6.1 U/L (<=8.1)
[2023-03-27 17:03] LABS: Centromere Protein A Ab <11 SI (<11); Centromere Protein B Ab <11 SI (<11); Fibrillarin Ab <11 SI (<11); PM SCL 100 Ab <11 SI (<11); PM SCL 75 Ab <11 SI (<11); RNA Polymerase III RP11 Ab <11 SI (<11); RNA Polymerase III RP155 Ab <11 SI (<11); SCL-70 Extractable Nuclear Ab <11 SI (<11); Th-To Ab <11 SI (<11); U1 SNRNP RNP 70KD <11 SI (<11); U1 SNRNP RNP A <11 SI (<11); U1 SNRNP RNP C <11 SI (<11)
[2023-03-31 17:49] LABS: Cytosolic 5'nuc 1A Ab IgG 37 Units; Ej Ab <11 SI (<11); HMGCR Ab IgG <2 CU (<20); Jo-1 Ab <11 SI (<11); MDA5 Ab <11 SI (<11); Mi-2 alpha Ab <11 SI (<11); Mi-2 beta Ab <11 SI (<11); NXP-2 (MJ) Ab <11 SI (<11); Oj Ab <11 SI (<11); Pl-12 Ab <11 SI (<11); Pl-7 Ab 22 SI (<11); SRP Ab <11 SI (<11); TIF1 gamma Ab <11 SI (<11)
[2023-04-11 18:24] LABS: TPMT Activity 9
== END 2023-03-19 08:20 | disposition home or self-care (01) ==
LOC: HO.10HDL 08:19
PROVIDERS: Visit Provider Student in an Organized Health Care Education/Training Program
DX: Z13.89 Encounter for screening for other disorder (principal)
CPT/HCPCS: 36415; 81001; 82085; 82550; 82657; 83516; 83520; 84156; 84182; 85652; 86160; 86225; 86235; 86431; 86481; 86704; 86706; 86709; 86803; 87340; 87522

== ENCOUNTER 2023-03-21 13:15 | Outpatient (REF) | payer MEDICARE, SELFPAY ==
--- NOTE | ~2023-03-21 | CT_ITS ---
EXAMINATION: CT CHEST WITHOUT CONTRAST CLINICAL INFORMATION: Follow-up pneumonia COMPARISON: 03/13/[address] scan from 12/03/2022 TECHNIQUE: Multidetector volumetric CT imaging of the chest was done. Axial MIP volume rendering provided. Sagittal and coronal reformatted images were obtained. This CT examination was performed using dose optimization techniques as appropriate, variously including the following: *Automated exposure control *Adjustment of mA and/or kV according to patient size (this includes techniques or standardized protocols for targeted exams where dose is matched to indication/reason for exam; i.e. extremities or head) *Use of iterative reconstruction technique DLP: 174 mGy-cm FINDINGS: ROLLER SKATES ASSEMBLER: There are patchy airspace disease in the right lung LUNGS: There is progressive consolidation with air bronchogram involving the right upper lobe, right middle lobe, right lower lobe as well as ill-defined irregular nodules seen bilaterally. On the right there is new 0.4 cm ill-defined groundglass opacity upper lobe nodule, 0.4 cm right upper lobe nodule seen on image 14, abating right-sided pleural effusion, there is 1.2 cm nodule in the right upper lobe seen on image 18. There is spiculated ill-defined groundglass opacity right upper lobe 1.5 cm nodule seen on image 21 and 2.0 cm groundglass opacity nodule inseparable from pleura seen on image 25, 1.4 cm nodule seen on image 28 inseparable from pleural effusion, 1.8 cm nodule inseparable from consolidation in the right lower lobe seen on image 28, 0.9 cm nodule seen in the right lower lobe on image 30, 1.3 cm nodule inseparable from the pleural effusion seen on image 36. On the left there is groundglass opacity consolidation measured 2.1 x 2.2 cm seen on image 40 there is 0.9 cm nodule seen on image 41 in the left lower lobe. MEDIASTINUM: There are multiple small mediastinal lymph nodes, measured in conglomerate 2.5 cm to the right of the trachea. There is no pericardial effusion. Aorta is nondilated. CORONARY ARTERY CALCIFICATION: None visualized on this study. PLEURA: There is small pleural effusion on the right AXILLA: No lymphadenopathy. UPPER ABDOMEN: Gallbladder is surgically absent. There is small hiatal hernia. OSSEOUS STRUCTURES: There are no lytic or blastic lesions. There is dish in the thoracic spine CT/CT chest wo IV con IMPRESSION: 1. Progressive airspace disease in the right lung with multiple new ill-defined nodules bilaterally. 2. Small right-sided pleural effusion. 3. Mediastinal lymphadenopathy. 4. Small hiatal hernia. 5. Status post cholecystectomy. 6. No evidence of osseous lesions.. Fleischner guidelines were followed.
== END 2023-03-21 13:16 | disposition home or self-care (01) ==
LOC: HO.CT 13:15
PROVIDERS: PCP Nurse Practitioner Family; Visit Provider Hospitalist
DX: J18.9 Pneumonia, unspecified organism (principal)
CPT/HCPCS: 71250

== ENCOUNTER 2023-04-03 08:18 | Outpatient (REF) | payer MEDICARE, SELFPAY ==
--- NOTE | ~2023-04-03 | XR_ITS ---
EXAMINATION: XR CHEST CLINICAL INFORMATION: Pneumonia. COMPARISON: CT chest 03/21/2023 TECHNIQUE: 2 views of the chest were obtained. FINDINGS: The lungs are expanded with patchy opacity seen in right middle lobe and lower lobe suggestive chronic scarring or atelectasis. The left lung is clear. There is mild blunting of right CP angle from pleural effusion or pleural thickening. Heart size and progress clarities normal. No gross bony abnormality seen. XR/XR chest 2V IMPRESSION: Right middle lobe and right lower lobe scarring/atelectasis or resolving infiltrates. It has significanly improved since previous CT chest 03/21/2023.. There is mild blunting of right CP angle from pleural effusion or pleural thickening.
== END 2023-04-03 08:19 | disposition home or self-care (01) ==
LOC: HO.XRAY 08:18
PROVIDERS: PCP Nurse Practitioner Family; Visit Provider Hospitalist
DX: J18.9 Pneumonia, unspecified organism (principal)
CPT/HCPCS: 71046

== ENCOUNTER 2023-04-16 09:04 | Outpatient (AMB) | payer MEDICARE, SELFPAY ==
--- NOTE | 2023-04-16 09:09 | MHC.OFFVIS ---
Intake Vital Signs 04/16/23 09:10 Height 5 ft 9 in Weight 172 lb 13.478 oz BMI 25.5 BP 130/70 Blood Pressure Location Lt brachial Position Sitting Pulse 60 Pulse Source Pulse Oximeter Pulse Oximetry (%) 97 Oxygen Delivery Method Room Air Intake Visit Reasons: COPD Cane Cutter Required: No Allergies morphine [MORPHINE] Allergy (Intermediate, Verified 04/16/23 09:12) HR DROPPED clarithromycin [Prevpac] Adverse Reaction (Intermediate, Verified 04/16/23 09:12) depression (after taking for a few days) - includes most PPI lansoprazole [Prevpac] Adverse Reaction (Intermediate, Verified 04/16/23 09:12) depression (after taking for a few days) - includes most PPI ranitidine [Zantac] Adverse Reaction (Intermediate, Verified 04/16/23 09:12) depression (after taking for a few months) Prilosec Adverse Reaction (Intermediate, Uncoded 04/16/23 09:12) depression (after taking for a few days) - includes most PPI HPI HPI Comments History of Present Illness Details The patient is a 68-year-old gentleman here for evaluation of an abnormal CT scan of the chest. The patient was in usual state health until in 2021 when he underwent a screening endoscopy for the evaluation reflux disease. 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 The patient did undergo radiation therapy. He was also referred to Oncology. Further workup included a PET scan. This was done in July 2022 and I did review the results. No significant FDG activity in the parenchymal lung tissue and no abnormalities noted. The patient did not have any significant lymphadenopathy either. Subsequently after that in September he had a CT scan of the abdomen and pelvis that demonstrated some lung cuts with bilateral areas of airspace disease and consolidations. Patient was asymptomatic. He was placed on antibiotics at that time and he started expectorating some. He was not having any respiratory issues at that time. Subsequently the patient developed the flu she started developing significant myalgia and fatigue arthralgias and was not feeling well. After that he started having worsening cough and shortness of breath and was not feeling well. He started developing pleuritic discomfort. He had a repeat CT scan at that time in October 2022 which was personally by me now demonstrating bilateral peripheral patchy consolidations with some cavitations which appears to me more likely a component of post viral Staph aureus infection. That or some degree of bacteremia. The patient was having significant symptoms and he was seen by urgent care with placement 7 days of Bactrim and also prednisone and he is significantly better at this time. Therefore likely that by treating the likely staph infection is feeling better. That being said he was having some findings on the CT scan of the abdomen prior to being sick. The question still stands is could he have some underlying bronch is associated lymphoma in addition to the gastric lymphoma of the very unlikely. Based on the fact the patient is feeling better on the Bactrim will going to extend the course the Bactrim to treating for total 21 days. Then we will repeat the imaging studies as long as he is doing well. If the patient is not doing well then we will consider bronchoscopy earlier on. Otherwise will repeat the CT scan in around 6 weeks to see if she still has any residual findings and if he does will go ahead and intervene with a diagnostic bronchoscopy. 12/11/2022 The patient is here for a pulmonary follow up visit. The patient completed all the antibiotics. Initially feeling better, but, then started complaining of the dry cough and the left sided chest pain. Moderate in severity. He could not tolerate the prednisone after one day. Complaining of joing pains as well. He recently received a shot for his joint pain with likely cortisone which improved his symptoms. He has a repeat CT chest with persistent patchy consolidations and some scarring. Will need to undergo bloodwork and a bronchoscopy at this time. 01/23/2023 the patient is here for a pulmonary follow-up visit. He is feeling better on the prednisone. He is back to riding his bike. Has some limitations but much improved. Also still has some chest tightness around that left hemithorax but is slowly getting better. He was evaluated by Rheumatology. Blood work was all negative. Now is coming up to the end of the month on 10 mg of prednisone. Will go ahead and try to wean him slowly down until completely off in about 6 weeks. Afterwards will plan to repeat the CT scan in around 8-10 weeks to assess the area involved. Patient did have a chest x-ray on the 16 of January which I personally reviewed demonstrating some interval improvement of that airspace disease already although not completely back to baseline. 03/14/2023 the patient is here for sick visit. The patient apparently started prednisone his symptoms started to worsen again. Complaining of cough shortness of breath. Also has arthritis seems to be more active. He did follow-up with Rheumatology but his symptoms were pretty stable in the prednisone. He does have a follow-up pending. In the meantime because of his worsening respiratory symptoms his primary care doctor center for an x-ray demonstrating a new opacity in the right hemithorax suggesting again recurrent pneumonia. 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 For although he is also at risk for bacterial infections. I will place him on Levaquin. Will request a sputum culture. The patient exam bringing significant mucus at this time. He had a bad reaction to the prednisone however. Therefore, would not be unreasonable to put him on immunomodulator therapy to help him with his rheumatoid arthritis and also his ongoing inflammatory condition and the lungs. Therefore, request blood work to make sure that his liver function and kidney function studies are normal and will start him immunomodulator therapy. 04/16/2023 the patient is here for a pulmonary follow-up visit. Overall he is feeling a lot better. Although he is on 60 mg of prednisone. His chest x-ray demonstrates improvement. Having hard time with sleep. He feels very active which she likes and being on the prednisone. Explained to him all the adverse effects of the prednisone and Goldy biggest concern is immuno suppression. Therefore he will need PCP prophylaxis. Will start decreasing down the prednisone and keep him on a 20 mg daily dose. Patient will talk to rheumatology regarding starting immunomodulator therapy. There is a concern from the patient's point of view about risk of lymphoma since he read up on the Internet. The patient understands that he does not have a lot options and will choose the best most effective medications always considering the risk benefit ratio. The patient will continue tapering down the prednisone and we will follow up with a repeat x-ray the in a couple months. [facility] Medical History (Updated 04/16/23 @ 22:04 by Chato Rowley MD) Abnormal biliary HIDA scan Alopecia (capitis) totalis Benign essential hypertension Benign prostatic hyperplasia Bradycardia [place] of foot Diverticulosis Dyslipidemia Gastritis History of gastric ulcer History of hepatitis C History of Lyme disease (~2009) ILD (interstitial lung disease) Impaired fasting glucose Internal hemorrhoids Kidney stones Left shoulder pain Lumbar spondylosis Myopathy Normal colonoscopy (~08/2011) Rheumatoid arthritis Right knee meniscal tear Scleroderma Screening for viral disease Surgical History History of esophagogastroduodenoscopy (EGD) (~06/2019) History of liver biopsy History of medial meniscus repair of left knee (~12/2016) History of prostate surgery History of right inguinal hernia repair (~2011) History of surgery on right wrist Hx laparoscopic cholecystectomy (~10/2012) Status post left rotator cuff repair (~11/2020) Family History Father Gastric cancer Prostate cancer Family/Other Pancreas cancer Brother Skin cancer Social History Household Members: None Housing: House Are you a primary critical care unit nurse to a significant other at home: No Do you presently have visiting nurse or other home services: No Alcohol intake: never Patient Tobacco Use Status: Never used Tobacco e-Cigarette/Vaping Use: Never Used Second Hand Smoke Exposure: No service: Yes Current occupational status: retired Cognitive needs: No Hearing needs: No Vision needs: Yes Review of Systems Const Denies chills, Denies fatigue, Denies fever(s) and Denies headache(s) ENT Denies headache(s), Denies odynophagia, Denies sinus pain and Denies sore throat Card Denies chest pain, Denies palpitations, Denies dyspnea and Reports dyspnea on exertion Resp Denies chest congestion, Reports cough, Denies pain on inspiration, Denies pain with cough, Denies dyspnea and Reports dyspnea on exertion GI Denies abdominal pain, Denies constipation, Denies heartburn, Denies diarrhea and Denies odynophagia Denies dysuria and Denies nocturia Musc Reports stiffness (residual stiffness in the left shoulder) Neuro Denies headache(s) Endo Denies fatigue and Denies palpitations Physical Exam Vital Signs: Last Vital Signs Pulse 60 04/16/23 09:10 BP 130/70 04/16/23 09:10 Pulse Ox 97 04/16/23 09:10 Oxygen Delivery Method Room Air 04/16/23 09:10 BMI result Body Mass Index 25.5 Const General: cooperative and healthy appearing Nutritional Appearance: well nourished Orientation/consciousness: patient oriented x3 Limitations: no limitations HEENT Head: Yes normal to inspection Eyes General: appearance normal, both eyes and all related structures Neck Neck: Yes normal visual inspection Chest Chest palpation & inspection: normal palpation of entire chest wall Resp Effort & Inspection: normal respiratory effort and able to speak in complete sentences Auscultation: diminished lung sounds Cardio Rhythm: regular rhythm Heart sounds: S1 normal heart sound present and S2 normal heart sound present Neuro General: patient oriented x3 Extrem General: Yes no clubbing, cyanosis or edema Assessment & Plan Assessment & Plan (1) ILD (interstitial lung disease): Code(s): J84.9 - Interstitial pulmonary disease, unspecified (2) Pneumonia: Code(s): J18.9 - Pneumonia, unspecified organism Qualifiers: Pneumonia type: due to unspecified organism Laterality: bilateral Lung location: unspecified part of lung Qualified Code(s): J18.9 - Pneumonia, unspecified organism (3) Inflammatory arthritis: Code(s): M19.90 - Unspecified osteoarthritis, unspecified site Plan Suspicious for Cryptogenic organizing pneumonia, now with recurrence Rec Taper Prednisone start bactrim Will follow up with Rheumatology to start ummunomodulator versus Rituxan repeat CXR in 6-8 weeks F/U 8-12 weeks Orders: Orders XR chest 2V Today J84.9 - Interstitial pulmonary disease, unspecified Coding Level of Care Code Est Pt Level 4 (58782) Diagnoses ILD (interstitial lung disease) J84.9 Pneumonia J18.9 Pneumonia type: due to unspecified organism Laterality: bilateral Lung location: unspecified part of lung Inflammatory arthritis M19.90 Time Spent (min) 18
[2023-04-16 09:10] VITALS: BP 130/70; PULSE 60; O2SAT 97; BMI 25.5
== END 2023-04-16 09:38 | disposition home or self-care (01) ==
PROVIDERS: PCP Nurse Practitioner Family; Visit Provider Hospitalist
DX: J84.9 Interstitial pulmonary disease, unspecified (principal)
CPT/HCPCS: 99214

== ENCOUNTER → 2023-04-16 09:04 | Outpatient (BNVA) | payer MEDICARE, SELFPAY | PROVIDERS: PCP Nurse Practitioner Family; Visit Provider Hospitalist | DX: J84.9 Interstitial pulmonary disease, unspecified (principal); M19.90 Unspecified osteoarthritis, unspecified site; Z79.52 Long term (current) use of systemic steroids | CPT/HCPCS: 99212 ==

== ENCOUNTER 2023-05-27 07:51 | Outpatient (AMB) | payer MEDICARE, SELFPAY ==
[2023-05-27 07:59] VITALS: BP 140/90; PULSE 64; TEMP 36.7; O2SAT 98; BMI 26.9
--- NOTE | 2023-05-27 07:59 | MHC.OFFVIS ---
Intake Vital Signs 05/27/23 07:59 Height 5 ft 9 in Weight 182 lb 5.156 oz BMI 26.9 BP 140/90 H Blood Pressure Location Rt brachial Position Sitting Pulse 64 Pulse Source Pulse Oximeter Temp 98.1 F Temp Source Skin Pulse Oximetry (%) 98 Oxygen Delivery Method Room Air Intake Visit Reasons: COOP/RA Intake Note: Pt presents today for follow up and test results. Following with pulmonology Dr Rowley Allergies morphine [MORPHINE] Allergy (Intermediate, Verified 05/27/23 08:01) HR DROPPED clarithromycin [Prevpac] Adverse Reaction (Intermediate, Verified 05/27/23 08:01) depression (after taking for a few days) - includes most PPI lansoprazole [Prevpac] Adverse Reaction (Intermediate, Verified 05/27/23 08:01) depression (after taking for a few days) - includes most PPI ranitidine [Zantac] Adverse Reaction (Intermediate, Verified 05/27/23 08:01) depression (after taking for a few months) Prilosec Adverse Reaction (Intermediate, Uncoded 05/27/23 08:01) depression (after taking for a few days) - includes most PPI Medication List - Last Reconciled 05/27/23 by Lee Ann Goyal MD famotidine 10 mg PO DAILY PRN prednisone 20 mg PO DAILY HPI HPI Comments History of Present Illness Details 68-year-old male with cryptogenic organizing pneumonia and seronegative rheumatoid arthritis returns for follow-up. He was started on 60 mg of prednisone last month by Dr. Rowley and has been tapered down, currently is on 20 mg of prednisone. He has been on 20 mg since last Friday. States that since lowering the prednisone dose to 20 mg he has been feeling some creaking sensation in his right lung arthritic symptoms resolved. Has been getting skin fragility wounds since being on prednisone. No other symptoms Initial history: This is a 67-year-old male presents for evaluation of diffuse joint pain. 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 He also has history of alopecia Universalis since 1986. 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 Since then he has limited extension of right wrist. He states that back in August of 2022 he started having right wrist pain and swelling. He was evaluated by [facility] and received an steroid injection in the right wrist which gave him total relief for a few weeks. In September he was having fatigue and some cough. CT chest showed findings suspicious of pneumonia. He received multiple rounds of antibiotics. He also received few courses of prednisone which provided significant relief of his overall joint pain. States that he would have pain in his wrists, hands, stiffness, difficulty closing his fingers, shoulder and elbow stiffness. He was evaluated by [facility] 4 days ago and received 2 injections in the left wrist which gave him dramatic relief of his generalized joint pain and stiffness. Patient is unaware of any family history of autoimmune rheumatic disease. He continues to take meloxicam. FOR[facility]LY [facility] Medical History Screening for viral disease Scleroderma Myopathy Rheumatoid arthritis ILD (interstitial lung disease) Right knee meniscal tear Abnormal biliary HIDA scan Kidney stones [place] of foot Bradycardia Left shoulder pain Normal colonoscopy (~08/2011) Lumbar spondylosis Impaired fasting glucose Dyslipidemia Benign essential hypertension History of gastric ulcer Gastritis Internal hemorrhoids Diverticulosis Benign prostatic hyperplasia Alopecia (capitis) totalis History of Lyme disease (~2009) History of hepatitis C Surgical History History of liver biopsy History of prostate surgery Status post left rotator cuff repair (~11/2020) History of esophagogastroduodenoscopy (EGD) (~06/2019) History of medial meniscus repair of left knee (~12/2016) Hx laparoscopic cholecystectomy (~10/2012) History of right inguinal hernia repair (~2011) History of surgery on right wrist Family History Father Gastric cancer Prostate cancer Family/Other Pancreas cancer Brother Skin cancer Social History Household Members: None Housing: House Are you a primary campground caretaker to a significant other at home: No Do you presently have visiting nurse or other home services: No Alcohol intake: never Patient Tobacco Use Status: Never used Tobacco e-Cigarette/Vaping Use: Never Used Second Hand Smoke Exposure: No service: Yes Current occupational status: retired Cognitive needs: No Hearing needs: No Vision needs: Yes Review of Systems Resp Reports wheezing Musc Denies arthralgias, Denies joint swelling and Denies stiffness Aller/Immun Reports wheezing Physical Exam Vital Signs: Last Vital Signs Temp 98.1 F 05/27/23 07:59 Pulse 64 05/27/23 07:59 BP 140/90 H 05/27/23 07:59 Pulse Ox 98 05/27/23 07:59 Oxygen Delivery Method Room Air 05/27/23 07:59 BMI result Body Mass Index 26.9 Const General: cooperative, healthy appearing, comfortable and no acute distress Nutritional Appearance: overweight Orientation/consciousness: patient oriented x3 Limitations: no limitations HEENT Head: Yes normocephalic and Yes atraumatic Mouth: moist mucous membranes Resp Effort & Inspection: normal respiratory effort and able to speak in complete sentences Auscultation: rhonchi Cardio Rate: regular rate Rhythm: regular rhythm Skin Other: Few skin fragility wounds on both upper extremities Neuro General: patient oriented x3 Extrem Other: Osteoarthritic changes of both hands with no active synovitis Assessment & Plan Assessment & Plan (1) Inflammatory arthritis: Code(s): M19.90 - Unspecified osteoarthritis, unspecified site Plan: This is a 68-year-old male with seronegative RA and cryptogenic organizing pneumonia who presents for follow-up. For the last 12 months or so patient has been getting recurrent symptoms of fevers, chest pain, shortness of breath, inflammatory arthritis. Symptoms improved with prednisone but as soon as prednisone is tapered symptoms returned. He is currently on 20 mg of prednisone and some of his respiratory symptoms are coming back. Patient needs a DMARD for rheumatoid arthritis and its associated interstitial lung disease. Methotrexate and leflunomide would not be preferred due to potential for pneumonitis. Azathioprine would not be preferred due to risk of recurrent lymphoma. I discussed with patient's lead massage therapist and heme/oncologist and we agree that rituximab would be a reasonable option to treat his cryptogenic organizing pneumonia and rheumatoid arthritis. Discussed risks and benefits of rituximab with patient. He agreed to proceed. Will start prior authorization for rituximab 1 g x 2 doses 14 days apart to be repeated every 4-6 months. Blood work today. Follow-up in 2 months Plan I spent 26 minutes reviewing patient's chart, evaluating patient, ordering diagnostic workup, counseling patient and documenting in the chart Orders: Orders Complete Blood Count Auto Diff Today M19.90 - Unspecified osteoarthritis, unspecified site Comprehensive Met. Panel Today M19.90 - Unspecified osteoarthritis, unspecified site Erythrocyte Sedimentation Rate Today M1.90 - Unspecified osteoarthritis, unspecified site C Reactive Protein Today M1. - Unspecified osteoarthritis, unspecified site Anti DNA DS Antibody Today M1 - Unspecified osteoarthritis, unspecified site Medications: Changed From prednisone 60 mg (3 x 20 mg) PO DAILY 30 days 90 tabs 0RF To prednisone 20 mg PO DAILY Coding Level of Care Code Est Pt Level 4 (04510) Diagnoses Inflammatory arthritis
== END 2023-05-27 08:28 | disposition home or self-care (01) ==
PROVIDERS: PCP Nurse Practitioner Family; Visit Provider Student in an Organized Health Care Education/Training Program
DX: M19.90 Unspecified osteoarthritis, unspecified site (principal)
CPT/HCPCS: 99214

== ENCOUNTER 2023-05-27 07:51 | Outpatient (REF) | payer MEDICARE, SELFPAY ==
[2023-05-27 15:03] LABS: MANUAL DIFF FLAG NO
[2023-05-27 15:29] LABS: Basophils Percent Auto 0.4 % (0-2); Eosinophils Percent Auto 0.5 % (0-4); Hematocrit 41.9 % (42.0-52.0); Hemoglobin 13.8 g/dl (14.0-18.0); Imm Gran Abs Auto 0.05 X10*3/uL (0.00-0.03); Imm Gran Pct Auto 0.6 % (0.0-0.4); Lymphocytes Absolute Auto 0.5 X10*3/uL (1.2-4.9); Lymphocytes Percent Auto 5.9 % (20-40); Mean Corpuscular HGB Conc 32.9 g/dl (31.0-36.0); Mean Platelet Volume 9.9 fL (9.4-12.4); Monocytes Absolute Auto 0.7 X10*3/uL (0.1-1.2); Neutrophils Absolute Auto 6.9 x10*3/uL (2.0-8.3); Neutrophils Percent Auto 84.6 % (45-73); Platelet Count 224 X10*3/uL (160-400); Red Blood Count 4.76 X10*6/uL (4.60-5.80); Red Cell Distribution Width 15.2 % (11.0-16.0); White Blood Count 8.1 X10*3/uL (4.8-10.8)
[2023-05-27 15:56] LABS: Alanine Aminotransferase 34 U/L (0-40); Albumin Level 4.1 g/dL (3.5-5.0); Alkaline Phosphatase 54 U/L (39-117); Anion Gap 15 (12-20); Aspartate Amino Transferase 30 U/L (5-37); Bilirubin Total 0.3 mg/dL (0.0-1.0); Blood Urea Nitrogen 19 mg/dL (9-16); C Reactive Protein 1.59 mg/dL (< or = 0.50); Carbon Dioxide 21 mmol/L (22-29); Chloride 108 mmol/L (96-108); Estimated Glomerular Filt Rate > 60; Glucose Random 101 mg/dL (60-115); Potassium 4.3 mmol/L (3.3-5.1); Sodium 140 mmol/L (135-145); Total Protein 7.2 g/dL (6.5-8.0)
[2023-05-27 16:17] LABS: Erythrocyte Sedimentation Rate 18 MM/HR (0-15)
[2023-05-29 09:42] LABS: Anti DNA DS Antibody 73 IU/mL
== END 2023-05-27 07:52 | disposition home or self-care (01) ==
LOC: HO.LAB 07:51
PROVIDERS: PCP Nurse Practitioner Family; Visit Provider Student in an Organized Health Care Education/Training Program
DX: M06.00 Rheumatoid arthritis without rheumatoid factor, unspecified site (principal)
CPT/HCPCS: 36415; 80053; 85025; 85652; 86140; 86225; 99212

== ENCOUNTER 2023-06-12 09:42 | Outpatient (REF) | payer MEDICARE, SELFPAY ==
--- NOTE | ~2023-06-12 | XR_ITS ---
EXAMINATION: XR CHEST CLINICAL INFORMATION: Interstitial pulmonary disease COMPARISON: Chest 04/03/2023, 03/13/2023 TECHNIQUE: 2 views of the chest were obtained. FINDINGS: The lungs are well expanded. There is significant interval improvement in previously noted opacity in the lateral right upper lobe and right lower lobe. Linear opacity in the right lung mid and lower aspect may be due to atelectasis and/or scarring. There is blunting of the right costophrenic angle consistent with a small pleural effusion. No significant abnormality is noted involving the heart, mediastinum or soft tissues. Degenerative changes of the thoracolumbar spine with anterior bridging osteophytes. XR/XR chest 2V IMPRESSION: 1. Significant interval improvement in previously noted right lung opacities. 2. Small right pleural effusion.
== END 2023-06-12 09:43 | disposition home or self-care (01) ==
LOC: HO.XRAY 09:42
PROVIDERS: PCP Nurse Practitioner Family; Visit Provider Hospitalist
DX: J84.9 Interstitial pulmonary disease, unspecified (principal)
CPT/HCPCS: 71046

== ENCOUNTER 2023-06-16 07:55 | Outpatient (AMB) | payer MEDICARE, SELFPAY ==
--- NOTE | 2023-06-16 08:01 | A.OFFPC_ITS ---
Vital Signs 06/16/23 08:03 Height 5 ft 9 in Weight 187 lb BMI 27.6 BP 120/76 Blood Pressure Location Rt brachial Position Sitting Pulse 62 Pulse Source Pulse Oximeter Pulse Oximetry (%) 97 Oxygen Delivery Method Room Air Intake Visit Reasons: 3 month fu Allergies morphine [MORPHINE] Allergy (Intermediate, Verified 06/16/23 08:03) HR DROPPED clarithromycin [Prevpac] Adverse Reaction (Intermediate, Verified 06/16/23 08:03) depression (after taking for a few days) - includes most PPI lansoprazole [Prevpac] Adverse Reaction (Intermediate, Verified 06/16/23 08:03) depression (after taking for a few days) - includes most PPI ranitidine [Zantac] Adverse Reaction (Intermediate, Verified 06/16/23 08:03) depression (after taking for a few months) Prilosec Adverse Reaction (Intermediate, Uncoded 06/16/23 08:03) depression (after taking for a few days) - includes most PPI Tobacco use date assessed: 03/13/23 Fall risk assessment: No Falls in past year Last assessed Fall Risk: 06/16/23 HPI 3 month fu HPI Details arthalgias, myalgias/rheumatoid arthritis. Hx of pneumonia, sees pulmonology, oncology, and rheumatology. Pt has not started the rituximab yet. He is on daily prednisone, 20mg currently. Pt reports feeling and doing great . Denies fever, chills, and dizziness. FOR[facility]LY [facility] Medical History Screening for viral disease Scleroderma Myopathy Rheumatoid arthritis ILD (interstitial lung disease) Right knee meniscal tear Abnormal biliary HIDA scan Kidney stones [place] of foot Bradycardia Left shoulder pain Normal colonoscopy (~08/2011) Lumbar spondylosis Impaired fasting glucose Dyslipidemia Benign essential hypertension History of gastric ulcer Gastritis Internal hemorrhoids Diverticulosis Benign prostatic hyperplasia Alopecia (capitis) totalis History of Lyme disease (~2009) History of hepatitis C Surgical History History of liver biopsy History of prostate surgery Status post left rotator cuff repair (~11/2020) History of esophagogastroduodenoscopy (EGD) (~06/2019) History of medial meniscus repair of left knee (~12/2016) Hx laparoscopic cholecystectomy (~10/2012) History of right inguinal hernia repair (~2011) History of surgery on right wrist Family History Father Gastric cancer Prostate cancer Family/Other Pancreas cancer Brother Skin cancer Social History Household Members: None Housing: House Are you a primary transitions rn care coordinator to a significant other at home: No Do you presently have visiting nurse or other home services: No Alcohol intake: never Patient Tobacco Use Status: Never used Tobacco e-Cigarette/Vaping Use: Never Used Second Hand Smoke Exposure: No service: Yes Current occupational status: retired Cognitive needs: No Hearing needs: No Vision needs: Yes Questionnaire Thrive Questionnaire Date Thrive assessed: 09/12/22 BLAIR-7 AMB Questionnaire BLAIR-7 Date BLAIR - 7 assessed: 09/12/22 Source: Developed by Drs. Joshua Carreon, Erika Gomez, Filipe Hein and colleagues, with an educational paige from [employer]. Review of Systems Const Reports as per HPI Physical exam (Primary Care) Vital Signs: Last Vital Signs Pulse 62 06/16/23 08:03 BP 120/76 06/16/23 08:03 Pulse Ox 97 06/16/23 08:03 Oxygen Delivery Method Room Air 06/16/23 08:03 BMI result Body Mass Index 27.6 Tobacco/Smoking Status: Tobacco use Status Tobacco use date assessed 03/13/23 06/16/23 08:02 Patient Tobacco Use Status Never used Tobacco 06/16/23 08:02 e-Cigarette/Vaping Use Never Used 06/16/23 08:02 Thrive Assessment: Date of Thrive Assessment Date Thrive assessed 09/12/22 06/16/23 08:02 Const General: cooperative Orientation/consciousness: patient oriented x3 Resp Other: wheezing throughout, no crackles, moving air Effort & Inspection: normal respiratory effort Cardio Rate: bradycardic Heart sounds: S1 normal heart sound present, S2 normal heart sound present and Murmur heart sound present systolic Neuro General: patient oriented x3 Psych Appearance: grossly normal Mental Status: mental status grossly normal Speech and movement: Normal speech and movement present Affect: normal affect Attitude: cooperative Thought process: Normal thought process present Thought content: Normal thought content present Insight: Good insight present (Psych) Judgement: Good judgement present (Psych) Assessment and Plan Assessment & Plan (1) Screening PSA (prostate specific antigen): Code(s): Z12.5 - Encounter for screening for malignant neoplasm of prostate Plan: PSA ordered (2) Systolic murmur: Code(s): R01.1 - Cardiac murmur, unspecified (3) ILD (interstitial lung disease): Code(s): J84.9 - Interstitial pulmonary disease, unspecified Plan The patient agreed to the use of a medical pathologist for this encounter. Scribed for LIZETTE Gold- by Yaa Penaloza medical pathologist, on 06/16/2023 at 08:20 EST. Orders: Orders Prostate Specific Antigen Scr Today Z12.5 - Encounter for screening for malignant neoplasm of prostate CA echo transthoracic complete Today R01.1 - Cardiac murmur, unspecified AMB EKG-In Office Today J84.9 - Interstitial pulmonary disease, unspecified Coding Level of Care Code Est Pt Level 3 (77382) Diagnoses Screening PSA (prostate specific antigen) Z12.5 Systolic murmur R01.1 ILD (interstitial lung disease) J84.9
[2023-06-16 08:03] VITALS: BP 120/76; PULSE 62; O2SAT 97; BMI 27.6
== END 2023-06-16 08:59 | disposition home or self-care (01) ==
PROVIDERS: PCP Nurse Practitioner Family; Visit Provider Nurse Practitioner Family
DX: Z12.5 Encounter for screening for malignant neoplasm of prostate (principal); R01.1 Cardiac murmur, unspecified; J84.9 Interstitial pulmonary disease, unspecified
CPT/HCPCS: 99213

== ENCOUNTER 2023-06-25 09:11 | Outpatient (AMB) | payer MEDICARE, SELFPAY ==
[2023-06-25 09:16] VITALS: PULSE 62; O2SAT 97; BMI 27.7
--- NOTE | 2023-06-25 09:16 | MHC.OFFVIS ---
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 Required: No Allergies morphine [MORPHINE] Allergy (Intermediate, Verified 06/25/23 09:17) HR DROPPED clarithromycin [Prevpac] Adverse Reaction (Intermediate, Verified 06/25/23 09:17) depression (after taking for a few days) - includes most PPI lansoprazole [Prevpac] Adverse Reaction (Intermediate, Verified 06/25/23 09:17) depression (after taking for a few days) - includes most PPI ranitidine [Zantac] Adverse Reaction (Intermediate, Verified 06/25/23 09:17) depression (after taking for a few months) Prilosec Adverse Reaction (Intermediate, Uncoded 06/25/23 09:17) depression (after taking for a few days) - includes most PPI HPI HPI Comments History of Present Illness Details The patient is a 68-year-old gentleman here for evaluation of an abnormal CT scan of the chest. The patient was in usual state health until in 2021 when he underwent a screening endoscopy for the evaluation reflux disease. 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 The patient did undergo radiation therapy. He was also referred to Oncology. Further workup included a PET scan. This was done in July 2022 and I did review the results. No significant FDG activity in the parenchymal lung tissue and no abnormalities noted. The patient did not have any significant lymphadenopathy either. Subsequently after that in September he had a CT scan of the abdomen and pelvis that demonstrated some lung cuts with bilateral areas of airspace disease and consolidations. Patient was asymptomatic. He was placed on antibiotics at that time and he started expectorating some. He was not having any respiratory issues at that time. Subsequently the patient developed the flu she started developing significant myalgia and fatigue arthralgias and was not feeling well. After that he started having worsening cough and shortness of breath and was not feeling well. He started developing pleuritic discomfort. He had a repeat CT scan at that time in October 2022 which was personally by me now demonstrating bilateral peripheral patchy consolidations with some cavitations which appears to me more likely a component of post viral Staph aureus infection. That or some degree of bacteremia. The patient was having significant symptoms and he was seen by urgent care with placement 7 days of Bactrim and also prednisone and he is significantly better at this time. Therefore likely that by treating the likely staph infection is feeling better. That being said he was having some findings on the CT scan of the abdomen prior to being sick. The question still stands is could he have some underlying bronch is associated lymphoma in addition to the gastric lymphoma of the very unlikely. Based on the fact the patient is feeling better on the Bactrim will going to extend the course the Bactrim to treating for total 21 days. Then we will repeat the imaging studies as long as he is doing well. If the patient is not doing well then we will consider bronchoscopy earlier on. Otherwise will repeat the CT scan in around 6 weeks to see if she still has any residual findings and if he does will go ahead and intervene with a diagnostic bronchoscopy. 12/11/2022 The patient is here for a pulmonary follow up visit. The patient completed all the antibiotics. Initially feeling better, but, then started complaining of the dry cough and the left sided chest pain. Moderate in severity. He could not tolerate the prednisone after one day. Complaining of joing pains as well. He recently received a shot for his joint pain with likely cortisone which improved his symptoms. He has a repeat CT chest with persistent patchy consolidations and some scarring. Will need to undergo bloodwork and a bronchoscopy at this time. 01/23/2023 the patient is here for a pulmonary follow-up visit. He is feeling better on the prednisone. He is back to riding his bike. Has some limitations but much improved. Also still has some chest tightness around that left hemithorax but is slowly getting better. He was evaluated by Rheumatology. Blood work was all negative. Now is coming up to the end of the month on 10 mg of prednisone. Will go ahead and try to wean him slowly down until completely off in about 6 weeks. Afterwards will plan to repeat the CT scan in around 8-10 weeks to assess the area involved. Patient did have a chest x-ray on the 16 of January which I personally reviewed demonstrating some interval improvement of that airspace disease already although not completely back to baseline. 03/14/2023 the patient is here for sick visit. The patient apparently started prednisone his symptoms started to worsen again. Complaining of cough shortness of breath. Also has arthritis seems to be more active. He did follow-up with Rheumatology but his symptoms were pretty stable in the prednisone. He does have a follow-up pending. In the meantime because of his worsening respiratory symptoms his primary care doctor center for an x-ray demonstrating a new opacity in the right hemithorax suggesting again recurrent pneumonia. 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 For although he is also at risk for bacterial infections. I will place him on Levaquin. Will request a sputum culture. The patient exam bringing significant mucus at this time. He had a bad reaction to the prednisone however. Therefore, would not be unreasonable to put him on immunomodulator therapy to help him with his rheumatoid arthritis and also his ongoing inflammatory condition and the lungs. Therefore, request blood work to make sure that his liver function and kidney function studies are normal and will start him immunomodulator therapy. 04/16/2023 the patient is here for a pulmonary follow-up visit. Overall he is feeling a lot better. Although he is on 60 mg of prednisone. His chest x-ray demonstrates improvement. Having hard time with sleep. He feels very active which she likes and being on the prednisone. Explained to him all the adverse effects of the prednisone and Goldy biggest concern is immuno suppression. Therefore he will need PCP prophylaxis. Will start decreasing down the prednisone and keep him on a 20 mg daily dose. Patient will talk to rheumatology regarding starting immunomodulator therapy. There is a concern from the patient's point of view about risk of lymphoma since he read up on the Internet. The patient understands that he does not have a lot options and will choose the best most effective medications always considering the risk benefit ratio. The patient will continue tapering down the prednisone and we will follow up with a repeat x-ray the in a couple months. 06/25/2023 the patient is here for a pulmonary follow-up visit. The patient seems to be doing better at this time. He had few days where he felt some chest congestion. Therefore he did on holding off on the Rituxan injection. The patient now feels better. A chest x-ray recently and I did review it with him. Appears to have a small right-sided pleural effusion but others whitman the airspace diseases significantly improved. He continues to be on 20 mg prednisone. The patient seems to be functioning well on the 20 mg at this time. Therefore, I did suggest that he continue the 20 until he gets his Rituxan dose and then he can taper it down accordingly. The patient follow-up with Rheumatology as well and further adjust the cortical steroid therapy. I am hoping that the Rituxan helps him and minimize the amount of steroids. When he returns in a couple months will do additional blood work to assess his in response immune system. The patient should also have a chest x-ray prior to the next visit. If his symptoms worsen or any concerns he is to call the office for an earlier assessment. [facility] Medical History (Updated 06/26/23 @ 20:11 by Chato Rowley MD) Pleural effusion Screening for viral disease Scleroderma Myopathy Rheumatoid arthritis ILD (interstitial lung disease) Right knee meniscal tear Abnormal biliary HIDA scan Kidney stones [place] of foot Bradycardia Left shoulder pain Normal colonoscopy (~08/2011) Lumbar spondylosis Impaired fasting glucose Dyslipidemia Benign essential hypertension History of gastric ulcer Gastritis Internal hemorrhoids Diverticulosis Benign prostatic hyperplasia Alopecia (capitis) totalis History of Lyme disease (~2009) History of hepatitis C Surgical History History of liver biopsy History of prostate surgery Status post left rotator cuff repair (~11/2020) History of esophagogastroduodenoscopy (EGD) (~06/2019) History of medial meniscus repair of left knee (~12/2016) Hx laparoscopic cholecystectomy (~10/2012) History of right inguinal hernia repair (~2011) History of surgery on right wrist Family History Father Gastric cancer Prostate cancer Family/Other Pancreas cancer Brother Skin cancer Social History Household Members: None Housing: House Are you a primary child daycare worker to a significant other at home: No Do you presently have visiting nurse or other home services: No Alcohol intake: never Patient Tobacco Use Status: Never used Tobacco e-Cigarette/Vaping Use: Never Used Second Hand Smoke Exposure: No service: Yes Current occupational status: retired Cognitive needs: No Hearing needs: No Vision needs: Yes Review of Systems Const Denies chills, Denies fatigue, Denies fever(s) and Denies headache(s) ENT Denies headache(s), Denies odynophagia, Denies sinus pain and Denies sore throat Card Denies chest pain, Denies palpitations, Denies dyspnea and Reports dyspnea on exertion Resp Denies chest congestion, Reports cough, Denies pain on inspiration, Denies pain with cough, Denies dyspnea and Reports dyspnea on exertion GI Denies abdominal pain, Denies constipation, Denies heartburn, Denies diarrhea and Denies odynophagia Denies dysuria and Denies nocturia Musc Reports stiffness (residual stiffness in the left shoulder) Neuro Denies headache(s) Endo Denies fatigue and Denies palpitations Physical Exam Vital Signs: Last Vital Signs Pulse 62 06/25/23 09:16 Pulse Ox 97 06/25/23 09:16 Oxygen Delivery Method Room Air 06/25/23 09:16 BMI result Body Mass Index 27.7 Const General: cooperative and healthy appearing Nutritional Appearance: well nourished Orientation/consciousness: patient oriented x3 Limitations: no limitations HEENT Head: Yes normal to inspection Eyes General: appearance normal, both eyes and all related structures Neck Neck: Yes normal visual inspection Chest Chest palpation & inspection: normal palpation of entire chest wall Resp Effort & Inspection: normal respiratory effort and able to speak in complete sentences Auscultation: diminished lung sounds Cardio Rhythm: regular rhythm Heart sounds: S1 normal heart sound present and S2 normal heart sound present Neuro General: patient oriented x3 Extrem General: Yes no clubbing, cyanosis or edema Office Procedures Flu Questionnaire Does the patient have a severe egg allergy?: No Does the patient have severe life threatening allergies?: No Does the patient have a fever or illness today?: No Has the patient ever had Guillain-[place] Syndrome?: No Has the patient ever had any past reaction to a flu shot?: No Immunizations flu vacc [id number] 6mos up(PF) 60 mcg(15 mcgx4)/0.5 mL IM syringe Performing Provider: Chato Rowley MD Performing Location: [facility] Administered by: Kaylin Blanco LPN on 06/25/23 09:39 Dose Route Admin Location Dispensed Lot Number Expiration Date NDC Bench Technician 0.5 mL IM Left Deltoid 0.5 mL [id number] 02/08/24 96578-620-95 [employer] VIS Given Date VIS Provided VIS Publication Date 06/25/23 Single Vaccine 21 Eligibility Eligibility Date Funding Source Not [facility] Eligible 06/25/23 Private Assessment & Plan Assessment & Plan (1) ILD (interstitial lung disease): Code(s): J84.9 - Interstitial pulmonary disease, unspecified (2) Pneumonia: Code(s): J18.9 - Pneumonia, unspecified organism Qualifiers: Laterality: bilateral Lung location: unspecified part of lung Pneumonia type: due to unspecified organism Qualified Code(s): J18.9 - Pneumonia, unspecified organism (3) Inflammatory arthritis: Comment: with myositis Code(s): M19.90 - Unspecified osteoarthritis, unspecified site (4) Pleural effusion: Code(s): J90 - Pleural effusion, not elsewhere classified Plan Taper Prednisone Off the Bactrim Will follow up with Rheumatology to start Rituxan repeat CXR in 6-8 weeks F/U 8-12 weeks Orders: Orders Influenza [id number] Immunization 06/25/23 J84.9 - Interstitial pulmonary disease, unspecified Medications: New prednisone 10 mg PO DAILY 30 days 30 tabs 3RF Coding Level of Care Code Est Pt Level 4 (26859) Diagnoses ILD (interstitial lung disease) J84.9 Pneumonia of both lungs due to infectious organism, unspecified part of lung J18.9 Laterality: bilateral Lung location: unspecified part of lung Pneumonia type: due to unspecified organism Inflammatory arthritis M19.90 Pleural effusion J90 Time Spent (min) 16
== END 2023-06-25 09:38 | disposition home or self-care (01) ==
PROVIDERS: PCP Nurse Practitioner Family; Visit Provider Hospitalist
DX: J84.9 Interstitial pulmonary disease, unspecified (principal); M19.90 Unspecified osteoarthritis, unspecified site; J90 Pleural effusion, not elsewhere classified
CPT/HCPCS: 99214

== ENCOUNTER → 2023-06-25 09:11 | Outpatient (BNVA) | payer MEDICARE, SELFPAY | PROVIDERS: PCP Nurse Practitioner Family; Visit Provider Hospitalist | DX: Z23 Encounter for immunization (principal); J84.9 Interstitial pulmonary disease, unspecified; J18.9 Pneumonia, unspecified organism; J90 Pleural effusion, not elsewhere classified; M19.90 Unspecified osteoarthritis, unspecified site | CPT/HCPCS: 90471; 90686; 99212 ==

== ENCOUNTER → 2023-07-02 09:59 | Outpatient (BNVA) | payer MEDICARE, SELFPAY | PROVIDERS: PCP Nurse Practitioner Family; Visit Provider Nurse Practitioner Family ==

== ENCOUNTER → 2023-07-18 09:44 | Outpatient (REF) | payer MEDICARE, SELFPAY ==
--- NOTE | 2023-07-18 09:46 | HM_ITS ---
Conclusion: 1. Patient was monitored for total period of 3 days 2. Baseline was normal sinus rhythm with average heart of 63 beats per minute 3. Frequent sinus bradycardia noted with heart rate below 60 beats per minute 42% of time with no significant pauses 4. Rare PACs and PVCs noted 5. No patient reported events MTDD
--- NOTE | 2023-07-18 09:46 | CA_ITS ---
Transthoracic Echocardiogram Patient (Last, First, Middle): Chad Cotto, Gender: Male Date of : 1955 Age: 68 Procedure Date: 07/18/2023 Procedure Type: Transthoracic Echocardiogram Location: OP Height: 175.26 cm Weight: 81.65 kg BSA: 1.98 m2 Heart Rate: bpm BP: 130 / 70 mmHg Stone Spreader Operator: HOLLY/VIRA Referring MD: Rudolph Kumari [facility] Symptoms: R01.1 - Cardiac murmur, unspecified Study Quality: Fair but adequate ECG Rhythm: Bradycardia Conclusions: - The left ventricular systolic function is normal. The calculated ejection fraction is 61% by biplane method. - No obvious valvular pathology seen on this study. Findings Procedure Information The quality of the study was technically difficult. The study quality is limited by patients body habitus. Left Ventricle Normal left ventricular cavity size. There is normal left ventricular wall thickness. The left ventricular systolic function is normal. The calculated ejection fraction is 61% by biplane method. There is no evidence of regional wall motion abnormalities. Diastolic function is normal for age. LV peak GLS -18.8%. Right Ventricle Normal right ventricular cavity size and systolic function. Atria Both atria are normal in size. Aortic Valve There is a normal trileaflet aortic valve. There is no aortic valve stenosis. There is no aortic valve regurgitation. Mitral Valve The mitral valve appears normal. There is no mitral valve regurgitation. There is no mitral valve stenosis. Pulmonic Valve The pulmonic valve is likely normal. Tricuspid Valve Normal tricuspid valve structure. There is trace tricuspid valve regurgitation. There is no evidence of pulmonary hypertension. Great Vessels The asc aorta is normal in size. Venous The inferior vena cava was not well visualized. Pericardium/Pleural There is no evidence of pericardial effusion. Prior Study Comparison No significant change compared to prior study dated: 02/05/2022. Recommendations, Care & Conclusions No obvious valvular pathology seen on this study. Measurements 2D Linear Measurements IVSd: 0.81 0.6-0.9/0.6-1.0 cm LVIDd: 4.88 3.9-5.3/4.2-5.9 cm LVIDd Index: 2.46 2.4-3.2/2.2-3.1 cm/m2 LVIDs: 3.35 2.0-3.6 cm LVPWd: 1.18 0.7-1.1 cm LA Diam: 3.60 2.7-3.8/3.0-4.0 cm LAIDs Index: 1.82 1.5-2.3 cm/m2 LV Mass: 216.20 67-162/88-224 g LV Mass Index: 109.19 43-95/49-115 g/m2 LVOT Diam: 2.00 3.0+(-)1.3 cm 2D Systolic Function EF 4C: 59.30 >55% EF 2C: 63.60 >55% EF BiP: 61.20 >55% Mitral Valve MV Pk E: 0.82 MV PK A: 0.86 MV Decel Time: 192.00 E/A: 1.00 E'Lateral: 9.79 E'Medial: 6.53 E/E' Med: 12.50 E/E' Lat: 8.40 PHT: 56.00 MVA PHT: 3.93 Decel [place]: 4.27 Aortic Valve AoV Pk Jimmie: 1.55 AoV Pk Grad: 10.00 MAYO: 2.91 LVOT LVOT Pk Jimmie: 1.53 LVOT Mn Jimmie: 0.99 LVOT VTI: 0.30 LVOT Pk Grad: 9.00 LVOT Mn Grad: 5.00 LVOT Diam: 2.00 LVOT Area: 3.14 Diastolic Function MV Pk E: 0.82 MV Pk A: 0.86 E/A: 1.00 E'Medial: 6.53 E/E' Med: 12.50 E' Laterial: 9.79 E/E' Lat: 8.40 Right Ventricle TAPSE (mm): 22.40 TVS' Jimmie: 14.60 Great Vessels Aorta Sinus of Valsalva: 3.60 2.0-3.5 cm Ao Asc: 3.30 2.1-3.4 cm Updated in Other Vendor System with Status of Final Shayan Galloway MD electronically signed on 07/19/2023 2:43:06 PM with status of Final
== END ==
LOC: HO.CARD 09:44
PROVIDERS: PCP Nurse Practitioner Family; Visit Provider Nurse Practitioner Family
DX: I49.3 Ventricular premature depolarization (principal); R01.1 Cardiac murmur, unspecified
CPT/HCPCS: 93242; 93306; 93356

== ENCOUNTER → 2023-07-18 09:46 | Outpatient (BNV) | payer MEDICARE, SELFPAY | PROVIDERS: PCP Nurse Practitioner Family; Visit Provider Internal Medicine | DX: R00.1 Bradycardia, unspecified (principal) | CPT/HCPCS: 93244; 93306 ==

== ENCOUNTER 2023-07-24 07:51 | Outpatient (AMB) | payer MEDICARE, SELFPAY ==
--- NOTE | 2023-07-24 07:52 | A.OFFVIS_ITS ---
Intake Vital Signs 07/24/23 07:56 Height 5 ft 9 in Weight 187 lb 13.341 oz BMI 27.7 BP 142/64 H Blood Pressure Location Lt brachial Position Sitting Pulse 63 Pulse Source Pulse Oximeter Temp 97.6 F Temp Source Skin Pulse Oximetry (%) 96 Oxygen Delivery Method Room Air Intake Visit Reasons: RA/ILD Intake Note: Patient last seen 05/27/23, presents today for follow up and test results. Started Rituximab infusion. Checker Dump Grounds Required: No Accompanied by: Self / Same As Patient Allergies morphine [MORPHINE] Allergy (Intermediate, Verified 07/24/23 07:53) HR DROPPED clarithromycin [Prevpac] Adverse Reaction (Intermediate, Verified 07/24/23 07:53) depression (after taking for a few days) - includes most PPI lansoprazole [Prevpac] Adverse Reaction (Intermediate, Verified 07/24/23 07:53) depression (after taking for a few days) - includes most PPI ranitidine [Zantac] Adverse Reaction (Intermediate, Verified 07/24/23 07:53) depression (after taking for a few months) Prilosec Adverse Reaction (Intermediate, Uncoded 07/24/23 07:53) depression (after taking for a few days) - includes most PPI Medication List - Last Reconciled 07/24/23 by Lee Ann Goyal MD famotidine 10 mg PO DAILY PRN prednisone 10 mg PO DAILY HPI HPI Comments History of Present Illness Details 68-year-old male with cryptogenic organi zing pneumonia and seronegative rheumatoid arthritis returns for follow-up. Patient received 2 doses of rituximab 1 g each, last of which was 07/21/2023. He is currently on 15 mg of prednisone. To be dropped down further to 10 mg starting this Friday. He s tates that he feels well overall. Denies any chest pain, cough, shortness of breath, fevers, joint pain or swelling. States that 2 days ago he felt that he ruptured his right biceps tendon while lifting weights. He felt something snap and had some swelling in his right biceps. There is no bruising. It is not particularly symptomatic for him. Initial history: This is a 67-year-old male presents for evaluation of diffuse joint pain. 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 He also has history of alopecia Universalis since 1986. 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 Since then he has limited extension of right wrist. He states that back in August of 2022 he started having right wrist pain and swelling. He was evaluated by [facility] and received an steroid injection in the right wrist which gave him total relief for a few weeks. In September he was having fatigue and some cough. CT chest showed findings suspicious of pneumonia. He received multiple rounds of antibiotics. He also received few courses of prednisone which provided si gnificant relief of his overall joint pain. States that he would have pain in his wrists, hands, stiffness, difficulty closing his fingers, shoulder and elbow stiffness. He was evaluated by [facility] 4 days ago and received 2 injections in the left wrist which gave him dramatic relief of his generalized joint pain and stiffness. Patient is unaware of any family history of autoimmune rheumatic disease. He continues to take meloxicam. [facility] Medical History (Updated 07/24/23 @ 08:25 by Lee Ann Goyal MD) Pleural effusion Screening for viral disease Scleroderma Myopathy Rheumatoid arthritis ILD (interstitial lung disease) Right knee meniscal tear Abnormal biliary HIDA scan Kidney stones [place] of foot Bradycardia Left shoulder pain Normal colonoscopy (~08/2011) Lumbar spondylosis Impaired fasting glucose Dyslipidemia Benign essential hypertension History of gastric ulcer Gastritis Internal hemorrhoids Diverticulosis Benign prostatic hyperplasia Alopecia (capitis) totalis History of Lyme disease (~2009) History of hepatitis C Surgical History History of liver biopsy History of prostate surgery Status post left rotator cuff repair (~11/2020) History of esophagogastroduodenoscopy (EGD) (~06/2019) History of medial meniscus repair of left knee (~12/2016) Hx laparoscopic cholecystectomy (~10/2012) History of right inguinal hernia repair (~2011) History of surgery on right wrist Family History Father Gastric cancer Prostate cancer Family/Other Pancreas cancer Brother Skin cancer Social History Household Members: None Housing: House Are you a primary lawn care professional to a significant other at home: No Do you presently have visiting nurse or other home services: No Alcohol intake: never Patient Tobacco Use Status: Never used Tobacco e-Cigarette/Vaping Use: Never Used Second Hand Smoke Exposure: No service: Yes Current occupational status: retired Cognitive needs: No Hearing needs: No Vision needs: Yes Review of Systems Const Denies fatigue and Denies fever(s) Card Denies chest pain and Denies dyspnea Resp Denies cough and Denies dyspnea Musc Denies arthralgias, Denies joint swelling, Denies limited range of motion and Denies stiffness Endo Denies fatigue Physical Exam Vital Signs: Last Vital Signs Temp 97.6 F 07/24/23 07:56 Pulse 63 07/24/23 07:56 BP 142/64 H 07/24/23 07:56 Pulse Ox 96 07/24/23 07:56 Oxygen Delivery Method Room Air 07/24/23 07:56 BMI result Body Mass Index 27.7 Const General: cooperative, healthy appearing, comfortable and no acute distress Nutritional Appearance: overweight Orientation/consciousness: patient oriented x3 Limitations: no limitations HEENT Head: Yes normocephalic and Yes atraumatic Mouth: moist mucous membranes Resp Effort & Inspection: normal respiratory effort and able to speak in complete sentences Auscultation: no rales, no rhonchi, no wheezes and diminished lung sounds on the right in the lower lung deleon Cardio Rate: regular rate Rhythm: regular rhythm Skin Other: Few skin fragility wounds on both upper extremities Neuro General: patient oriented x3 Extrem Other: Osteoarthritic changes of both hands with no active synovitis Assessment & Plan Assessment & Plan (1) Seronegative rheumatoid arthritis: Comment: RTX 1 g X 2 doses 07/2023 Code(s): M06.00 - Rheumatoid arthritis without rheumatoid factor, unspecified site Plan: This is a 68-year-old male with seronegative RA and cryptogenic organizing pneumonia (labs showed borderline positive PL-7, ++DsDNA but no other clinical or serologic criteria for lupus) who presents for follow-up.? Patient just completed rituximab infusions. He is currently on 50 mg of prednisone and planning to taper further to 10 mg this Friday. Upon evaluation there is no inflammatory arthritis, lungs are clear except for diminished sounds on the right lung base, likely due to a small pleural effusion. Stay on prednisone 10 mg daily for now Labs before next visit in 6 weeks. Plan I spent 26 minutes reviewing patient's chart, evaluating patient, ordering diagnostic workup, counseling patient and documenting in the chart Orders: Orders Comprehensive Met. Panel 6 Weeks M32.9 - Systemic lupus erythematosus, unspecified C Reactive Protein 6 Weeks M32.9 - Systemic lupus erythematosus, unspecified Complete Blood Count Auto Diff 6 Weeks M32.9 - Systemic lupus erythematosus, unspecified Erythrocyte Sedimentation Rate 6 Weeks M32.9 - Systemic lupus erythematosus, unspecified Anti DNA DS Antibody 6 Weeks M32.9 - Systemic lupus erythematosus, unspecified MSA Panel Extended 6 Weeks M60.9 - Myositis, unspecified Coding Level of Care Code Est Pt Level 4 (68028) Diagnoses Seronegative rheumatoid arthritis M06.00
[2023-07-24 07:56] VITALS: BP 142/64; PULSE 63; TEMP 36.4; O2SAT 96; BMI 27.7
== END 2023-07-24 08:21 | disposition home or self-care (01) ==
PROVIDERS: PCP Nurse Practitioner Family; Visit Provider Student in an Organized Health Care Education/Training Program
DX: M06.00 Rheumatoid arthritis without rheumatoid factor, unspecified site (principal)
CPT/HCPCS: 99214

== ENCOUNTER → 2023-07-24 07:51 | Outpatient (BNVA) | payer MEDICARE, SELFPAY | PROVIDERS: PCP Nurse Practitioner Family; Visit Provider Student in an Organized Health Care Education/Training Program | DX: M06.00 Rheumatoid arthritis without rheumatoid factor, unspecified site (principal) | CPT/HCPCS: 99212 ==

== ENCOUNTER 2023-08-18 08:29 | Outpatient (REF) | payer MEDICARE, SELFPAY ==
--- NOTE | ~2023-08-18 | XR_ITS ---
EXAMINATION: XR CHEST CLINICAL INFORMATION: Interstitial pulmonary disease. COMPARISON: 06/12/2023 TECHNIQUE: 2 views of the chest were obtained. FINDINGS: There is no gross pneumothorax. Lung volumes are low. Heart size is normal. Redemonstration of right costophrenic angle blunting/pleural fluid. Persistent opacities in the mid to lower right lung and lower left lung with some interval increase. Degenerative changes in the thoracic spine. Trace left pleural effusion. XR/XR chest 2V IMPRESSION: Redemonstration of right costophrenic angle blunting/pleural fluid. Persistent opacities in the mid to lower right lung and lower left lung with some interval increase. Differential considerations include atelectasis, pneumonia and other etiologies.
== END 2023-08-18 08:30 | disposition home or self-care (01) ==
LOC: HO.XRAY 08:29
PROVIDERS: PCP Nurse Practitioner Family; Visit Provider Hospitalist
DX: J84.9 Interstitial pulmonary disease, unspecified (principal)
CPT/HCPCS: 71046

== ENCOUNTER 2023-08-27 10:03 | Outpatient (REF) | payer MEDICARE, SELFPAY ==
[2023-08-27 11:22] LABS: MANUAL DIFF FLAG NO
[2023-08-27 11:31] LABS: Basophils Percent Auto 0.4 % (0-2); Eosinophils Percent Auto 0.3 % (0-4); Hematocrit 44.1 % (42.0-52.0); Hemoglobin 14.6 g/dl (14.0-18.0); Imm Gran Abs Auto 0.05 X10*3/uL (0.00-0.03); Imm Gran Pct Auto 0.5 % (0.0-0.4); Lymphocytes Absolute Auto 0.6 X10*3/uL (1.2-4.9); Lymphocytes Percent Auto 5.9 % (20-40); Mean Corpuscular HGB Conc 33.1 g/dl (31.0-36.0); Mean Corpuscular Hemoglobin 29.4 pg (27.0-33.0); Mean Corpuscular Volume 88.7 fL (80.0-98.0); Mean Platelet Volume 10.6 fL (9.4-12.4); Monocytes Absolute Auto 0.6 X10*3/uL (0.1-1.2); Monocytes Percent Auto 6.1 % (2-11); Neutrophils Absolute Auto 9.1 x10*3/uL (2.0-8.3); Neutrophils Percent Auto 86.8 % (45-73); Platelet Count 207 X10*3/uL (160-400); Red Blood Count 4.97 X10*6/uL (4.60-5.80); Red Cell Distribution Width 13.6 % (11.0-16.0); White Blood Count 10.5 X10*3/uL (4.8-10.8)
[2023-08-27 11:40] LABS: Alanine Aminotransferase 21 U/L (0-40); Albumin Level 4.3 g/dL (3.5-5.0); Alkaline Phosphatase 65 U/L (39-117); Anion Gap 13 (12-20); Aspartate Amino Transferase 22 U/L (5-37); Bilirubin Total 0.4 mg/dL (0.0-1.0); Blood Urea Nitrogen 17 mg/dL (9-16); C Reactive Protein 1.74 mg/dL (< or = 0.50); Calcium 9.8 mg/dL (8.4-10.2); Carbon Dioxide 26 mmol/L (22-29); Chloride 104 mmol/L (96-108); Estimated Glomerular Filt Rate > 60; Glucose Random 113 mg/dL (60-115); Potassium 4.5 mmol/L (3.3-5.1); Sodium 138 mmol/L (135-145); Total Protein 7.4 g/dL (6.5-8.0)
[2023-08-27 12:09] LABS: Erythrocyte Sedimentation Rate 8 MM/HR (0-15)
[2023-08-28 19:23] LABS: Anti DNA DS Antibody 86 IU/mL
[2023-09-04 19:54] LABS: Cytosolic 5'nuc 1A Ab IgG 38 Units; Ej Ab <11 SI (<11); HMGCR Ab IgG <2 CU (<20); Jo-1 Ab <11 SI (<11); MDA5 Ab <11 SI (<11); Mi-2 alpha Ab <11 SI (<11); Mi-2 beta Ab <11 SI (<11); NXP-2 (MJ) Ab <11 SI (<11); Oj Ab <11 SI (<11); Pl-12 Ab <11 SI (<11); Pl-7 Ab 15 SI (<11); SRP Ab <11 SI (<11); TIF1 gamma Ab <11 SI (<11)
== END 2023-08-27 10:04 | disposition home or self-care (01) ==
LOC: HO.LAB 10:03
PROVIDERS: PCP Nurse Practitioner Family; Visit Provider Student in an Organized Health Care Education/Training Program
DX: M06.00 Rheumatoid arthritis without rheumatoid factor, unspecified site (principal); M60.9 Myositis, unspecified; M32.9 Systemic lupus erythematosus, unspecified; J44.9 Chronic obstructive pulmonary disease, unspecified; J84.9 Interstitial pulmonary disease, unspecified; M19.90 Unspecified osteoarthritis, unspecified site; Z79.52 Long term (current) use of systemic steroids
CPT/HCPCS: 36415; 80053; 83516; 83520; 84182; 85025; 85652; 86140; 86225; 86235; 99212

== ENCOUNTER 2023-08-27 10:08 | Outpatient (AMB) | payer MEDICARE, SELFPAY ==
[2023-08-27 10:32] VITALS: BP 128/68; PULSE 55; O2SAT 96; BMI 28.6
--- NOTE | 2023-08-27 10:32 | A.OFFVIS_ITS ---
Intake Vital Signs 08/27/23 10:32 Height 5 ft 9 in Weight 194 lb BMI 28.6 BP 128/68 Blood Pressure Location Rt brachial Position Sitting Pulse 55 Pulse Source Pulse Oximeter Pulse Oximetry (%) 96 Oxygen Delivery Method Room Air Intake Visit Reasons: COPD Allergies morphine [MORPHINE] Allergy (Intermediate, Verified 08/27/23 10:33) HR DROPPED clarithromycin [Prevpac] Adverse Reaction (Intermediate, Verified 08/27/23 10:33) depression (after taking for a few days) - includes most PPI lansoprazole [Prevpac] Adverse Reaction (Intermediate, Verified 08/27/23 10:33) depression (after taking for a few days) - includes most PPI ranitidine [Zantac] Adverse Reaction (Intermediate, Verified 08/27/23 10:33) depression (after taking for a few months) Prilosec Adverse Reaction (Intermediate, Uncoded 08/27/23 10:33) depression (after taking for a few days) - includes most PPI HPI HPI Comments History of Present Illness Details The patient is a 68-year-old gentleman here for evaluation of an abnormal CT scan of the chest. The patient was in usual state health until in 2021 when he underwent a screening endoscopy for the evaluation reflux disease. 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 The patient did undergo radiation therapy. He was also referred to Oncology. Further workup included a PET scan. This was done in July 2022 and I did review the results. No significant FDG activity in the parenchymal lung tissue and no abnormalities noted. The patient did not have any significant lymphadenopathy either. Subsequently after that in September he had a CT scan of the abdomen and pelvis that demonstrated some lung cuts with bilateral areas of airspace disease and consolidations. Patient was asymptomatic. He was placed on antibiotics at that time and he started expectorating some. He was not having any respiratory issues at that time. Subsequently the patient developed the flu she started developing significant myalgia and fatigue arthralgias and was not feeling well. After that he started having worsening cough and shortness of breath and was not feeling well. He started developing pleuritic discomfort. He had a repeat CT scan at that time in October 2022 which was personally by me now demonstrating bilateral peripheral patchy consolidations with some cavitations which appears to me more likely a component of post viral Staph aureus infection. That or some degree of bacteremia. The patient was having significant symptoms and he was seen by urgent care with placement 7 days of Bactrim and also prednisone and he is significantly better at this time. Therefore likely that by treating the likely staph infection is feeling better. That being said he was having some findings on the CT scan of the abdomen prior to being sick. The question still stands is could he have some underlying bronch is associated lymphoma in addition to the gastric lymphoma of the very unlikely. Based on the fact the patient is feeling better on the Bactrim will going to extend the course the Bactrim to treating for total 21 days. Then we will repeat the imaging studies as long as he is doing well. If the patient is not doing well then we will consider bronchoscopy earlier on. Otherwise will repeat the CT scan in around 6 weeks to see if she still has any residual findings and if he does will go ahead and intervene with a diagnostic bronchoscopy. 12/11/2022 The patient is here for a pulmo nary follow up visit. The patient completed all the antibiotics. Initially feeling better, but, then started complaining of the dry cough and the left sided chest pain. Moderate in severity. He could not tolerate the prednisone after one day. Complaining of joing pains as well. He recently received a shot for his joint pain with likely cortisone which improved his symptoms. He has a repeat CT chest with persistent patchy consolidations and some scarring. Will need to undergo bloodwork and a bronchoscopy at this time. 01/23/2023 the patient is here for a pulm onary follow-up visit. He is feeling better on the prednisone. He is back to riding his bike. Has some limitations but much improved. Also still has some chest tightness around that left hemithorax but is slowly getting better. He was evaluated by Rheumatology. Blood work was all negative. Now is coming up to the end of the month on 10 mg of prednisone. Will go ahead and try to wean him slowly down until completely off in about 6 weeks. Afterwards will plan to repeat the CT scan in around 8-10 weeks to assess the area involved. Patient did have a chest x-ray on the 16 of January which I personally reviewed demonstrating some interval improvement of that airspace disease already although not completely back to baseline. 03/14/2023 the patient is here for sick visit. The patient apparently started prednisone his symptoms started to worsen again. Complaining of cough shortness of breath. Also has arthritis seems to be more active. He did follow-up with Rheumatology but his symptoms were pretty stable in the prednisone. He does have a follow-up pending. In the meantime because of his worsening respiratory symptoms his primary care doctor center for an x-ray demonstrating a new opacity in the right hemithorax suggesting again recurrent pneumonia. 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 For although he is also at risk for bacterial infections. I will place him on Levaquin. Will request a sputum culture. The patient exam bringing significant mucus at this time. He had a bad reaction to the prednisone however. Therefore, would not be unreasonable to put him on immunomodulator therapy to help him with his rheumatoid arthritis and also his ongoing inflammatory condition and the lungs. Therefore, request blood work to make sure that his liver function and kidney function studies are normal and will start him immunomodulator therapy. 04/16/2023 the patient is here for a pulaudra keith follow-up visit. Overall he is feeling a lot better. Although he is on 60 mg of prednisone. His chest x-ray demonstrates improvement. Having hard time with sleep. He feels very active which she likes and being on the prednisone. Explained to him all the adverse effects of the prednisone and Goldy biggest concern is immuno suppression. Therefore he will need PCP prophylaxis. Will start decreasing down the prednisone and keep him on a 20 mg daily dose. Patient will talk to rheumatology regarding starting immunomodulator therapy. There is a concern from the patient's point of view about risk of lymphoma since he read up on the Internet. The patient understands that he does not have a lot options and will choose the best most effective medications always considering the risk benefit ratio. The patient will continue tapering down the prednisone and we will follow up with a repeat x-ray the in a couple months. 06/25/2023 the patient is here for a pul monary follow-up visit. The patient seems to be doing better at this time. He had few days where he felt some chest congestion. Therefore he did on holding off on the Rituxan injection. The patient now feels better. A chest x-ray recently and I did review it with him. Appears to have a small right-sided pleural effusion but others whitman the airspace diseases significantly improved. He continues to be on 20 mg prednisone. The patient seems to be functioning well on the 20 mg at this time. Therefore, I did suggest that he continue the 20 until he gets his Rituxan dose and then he can taper it down accordingly. The patient follow-up with Rheumatology as well and further adjust the cortical steroid therapy. I am hoping that the Rituxan helps him and minimize the amount of steroids. When he returns in a couple months will do additional blood work to assess his in response immune system. The patient should also have a chest x-ray prior to the next visit. If his symptoms worsen or any concerns he is to call the office for an earlier assessment. 08/27/2023 the patient is here for pulmon david follow-up visit. The patient overall has been doing fairly well. Recently he started noticing increasing chest congestion. But minimal. The patient continues to be on 10 mg of prednisone. He is status post the Rituxan injection about 6-8 weeks ago. He does have blood work and a follow-up with his ladies locker room attendant soon. In the meantime we did have him go for a chest x-ray appears that he has had a slight increase in the airspace disease primarily on the right lower lobe and also right mid area. This is only minimal degree. Still, will continue to monitor his symptoms and will have a repeat chest x-ray in 3-4 weeks. He is going to see his ladies locker room attendant as well. In case his symptoms are worsening further adjustments of his medications may be warranted. But I am hopeful that he can continue on the lower dose prednisone specially with significant cushingoid appearance and high risk for adverse effects from the chronic prednisone use. Denies any fevers or chills low threshold to start antibiotics if his symptoms worsen. [facility] Medical History (Updated 07/24/23 @ 08:25 by Lee Ann Goyal MD) Pleural effusion Screening for viral disease Scleroderma Myopathy Rheumatoid arthritis ILD (interstitial lung disease) Right knee meniscal tear Abnormal biliary HIDA scan Kidney stones [place] of foot Bradycardia Left shoulder pain Normal colonoscopy (~08/2011) Lumbar spondylosis Impaired fasting glucose Dyslipidemia Benign essential hypertension History of gastric ulcer Gastritis Internal hemorrhoids Diverticulosis Benign prostatic hyperplasia Alopecia (capitis) totalis History of Lyme disease (~2009) History of hepatitis C Surgical History History of liver biopsy History of prostate surgery Status post left rotator cuff repair (~11/2020) History of esophagogastroduodenoscopy (EGD) (~06/2019) History of medial meniscus repair of left knee (~12/2016) Hx laparoscopic cholecystectomy (~10/2012) History of right inguinal hernia repair (~2011) History of surgery on right wrist Family History Father Gastric cancer Prostate cancer Family/Other Pancreas cancer Brother Skin cancer Social History Household Members: None Housing: House Are you a primary health care social worker to a significant other at home: No Do you presently have visiting nurse or other home services: No Alcohol intake: never Patient Tobacco Use Status: Never used Tobacco e-Cigarette/Vaping Use: Never Used Second Hand Smoke Exposure: No service: Yes Current occupational status: retired Cognitive needs: No Hearing needs: No Vision needs: Yes Review of Systems Const Denies chills, Denies fatigue, Denies fever(s) and Denies headache(s) ENT Denies headache(s), Denies odynophagia, Denies sinus pain and Denies sore throat Card Denies chest pain, Denies palpitations, Denies dyspnea and Reports dyspnea on exertion Resp Reports chest congestion, Reports cough, Denies pain on inspiration, Denies pain with cough, Denies dyspnea and Reports dyspnea on exertion GI Denies abdominal pain, Denies constipation, Denies heartburn, Denies diarrhea and Denies odynophagia Denies dysuria and Denies nocturia Musc Reports stiffness (residual stiffness in the left shoulder) Neuro Denies headache(s) Endo Denies fatigue and Denies palpitations Physical Exam Vital Signs: Last Vital Signs Pulse 55 08/27/23 10:32 BP 128/68 08/27/23 10:32 Pulse Ox 96 08/27/23 10:32 Oxygen Delivery Method Room Air 08/27/23 10:32 BMI result Body Mass Index 28.6 Const General: cooperative and healthy appearing Nutritional Appearance: well nourished Orientation/consciousness: patient oriented x3 Limitations: no limitations HEENT Head: Yes normal to inspection Eyes General: appearance normal, both eyes and all related structures Neck Neck: Yes normal visual inspection Chest Chest palpation & inspection: tenderness sternum and costochondral junction Resp Effort & Inspection: normal respiratory effort and able to speak in complete sentences Auscultation: diminished lung sounds Cardio Rhythm: regular rhythm Heart sounds: S1 normal heart sound present and S2 normal heart sound present Neuro General: patient oriented x3 Extrem General: Yes no clubbing, cyanosis or edema Assessment & Plan Assessment & Plan (1) ILD (interstitial lung disease): Code(s): J84.9 - Interstitial pulmonary disease, unspecified (2) Pneumonia: Code(s): J18.9 - Pneumonia, unspecified organism Qualifiers: Pneumonia type: due to unspecified organism Laterality: bilateral Lung location: unspecified part of lung Qualified Code(s): J18.9 - Pneumonia, unspecified organism (3) Inflammatory arthritis: Code(s): M19.90 - Unspecified osteoarthritis, unspecified site Plan Prednisone 10mg Off the Bactrim Will follow up with Rheumatology after bloodwork repeat CXR in 3-4 weeks F/U 8-12 weeks Orders: Orders XR chest 2V Today J84.9 - Interstitial pulmonary disease, unspecified Coding Level of Care Code Est Pt Level 4 (70200) Diagnoses ILD (interstitial lung disease) J84.9 Pneumonia of both lungs due to infectious organism, unspecified part of lung J18.9 Pneumonia type: due to unspecified organism Laterality: bilateral Lung location: unspecified part of lung Inflammatory arthritis M19.90 Time Spent (min) 17
== END 2023-08-27 10:58 | disposition home or self-care (01) ==
PROVIDERS: PCP Nurse Practitioner Family; Visit Provider Hospitalist
DX: J84.9 Interstitial pulmonary disease, unspecified (principal); J18.9 Pneumonia, unspecified organism; M19.90 Unspecified osteoarthritis, unspecified site
CPT/HCPCS: 99214

== ENCOUNTER 2023-09-04 07:32 | Outpatient (AMB) | payer MEDICARE, SELFPAY ==
--- NOTE | 2023-09-04 07:46 | A.OFFVIS_ITS ---
Intake Vital Signs 09/04/23 07:49 Height 5 ft 9 in Weight 192 lb 0.362 oz BMI 28.4 BP 106/66 Blood Pressure Location Lt brachial Position Sitting Pulse 76 Pulse Source Pulse Oximeter Temp 97.9 F Temp Source Skin Pulse Oximetry (%) 97 Oxygen Delivery Method Room Air Intake Visit Reasons: COOP Intake Note: Patient last seen 07/24/23 presents today for follow up and test results. 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: No Accompanied by: Self / Same As Patient Allergies morphine [MORPHINE] Allergy (Intermediate, Verified 09/04/23 07:51) HR DROPPED clarithromycin [Prevpac] Adverse Reaction (Intermediate, Verified 09/04/23 07:51) depression (after taking for a few days) - includes most PPI lansoprazole [Prevpac] Adverse Reaction (Intermediate, Verified 09/04/23 07:51) depression (after taking for a few days) - includes most PPI ranitidine [Zantac] Adverse Reaction (Intermediate, Verified 09/04/23 07:51) depression (after taking for a few months) Prilosec Adverse Reaction (Intermediate, Uncoded 09/04/23 07:51) depression (after taking for a few days) - includes most PPI Medication List - Last Reconciled 09/04/23 by Lee Ann Goyal MD famotidine 10 mg PO DAILY PRN prednisone 10 mg PO DAILY HPI HPI Comments History of Present Illness Details 68-year-old male with cryptogenic organi zing pneumonia and seronegative rheumatoid arthritis returns for follow-up. Patient received 2 doses of rituximab 1 g each, last of which was 07/21/2023. He has been on prednisone 10 mg daily for about 6 weeks now. He states that he is doing well overall. He gets minimal achy joints in his hands patient with exertion but no swollen joints. This is similar to how he was before symptoms of COOP started. Patient denies any shortness of breath. Denies any cough or pleuritic chest pain. D enies fevers Initial history: This is a 67-year-old male presents for evaluation of diffuse joint pain. 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 He also has history of alopecia Universalis since 1986. 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 Since then he has limited extension of right wrist. He states that back in August of 2022 he started having right wrist pain and swelling. He was evaluated by [facility] and received an steroid injection in the right wrist which gave him total relief for a few weeks. In September he was having fatigue and some cough. CT chest showed findings suspicious of pneumonia. He received multiple rounds of antibiotics. He also received few courses of prednisone which provided significant relief of his overall joint pain. States that he would have pain in his wrists, hands, stiffness, difficulty closing his fingers, shoulder and elbow stiffness. He was evaluated by [facility] 4 days ago and received 2 injections in the left wrist which gave him dramatic relief of his generalized joint pain and stiffness. Patient is unaware of any family history of autoimmune rheumatic disease. He continues to take meloxicam. [facility] Medical History (Updated 09/04/23 @ 09:28 by Lee Ann Goyal MD) Pleural effusion Rheumatoid arthritis ILD (interstitial lung disease) Right knee meniscal tear Abnormal biliary HIDA scan Kidney stones [place] of foot Bradycardia Left shoulder pain Normal colonoscopy (~08/2011) Lumbar spondylosis Impaired fasting glucose Dyslipidemia Benign essential hypertension History of gastric ulcer Gastritis Internal hemorrhoids Diverticulosis Benign prostatic hyperplasia Alopecia (capitis) totalis History of Lyme disease (~2009) History of hepatitis C Surgical History History of liver biopsy History of prostate surgery Status post left rotator cuff repair (~11/2020) History of esophagogastroduodenoscopy (EGD) (~06/2019) History of medial meniscus repair of left knee (~12/2016) Hx laparoscopic cholecystectomy (~10/2012) History of right inguinal hernia repair (~2011) History of surgery on right wrist Family History Father Gastric cancer Prostate cancer Family/Other Pancreas cancer Brother Skin cancer Social History Household Members: None Housing: House Are you a primary healthcare insurance sales agent to a significant other at home: No Do you presently have visiting nurse or other home services: No Alcohol intake: never Patient Tobacco Use Status: Never used Tobacco e-Cigarette/Vaping Use: Never Used Second Hand Smoke Exposure: No service: Yes Current occupational status: retired Cognitive needs: No Hearing needs: No Vision needs: Yes Review of Systems Card Denies dyspnea and Denies dyspnea on exertion Resp Denies cough, Denies pain with cough, Denies dyspnea and Denies dyspnea on exertion Musc Reports arthralgias, Denies joint swelling and Reports stiffness Physical Exam Vital Signs: Last Vital Signs Temp 97.9 F 09/04/23 07:49 Pulse 76 09/04/23 07:49 BP 106/66 09/04/23 07:49 Pulse Ox 97 09/04/23 07:49 Oxygen Delivery Method Room Air 09/04/23 07:49 BMI result Body Mass Index 28.4 Const General: cooperative, healthy appearing, comfortable and no acute distress Nutritional Appearance: overweight Orientation/consciousness: patient oriented x3 Limitations: no limitations HEENT Head: Yes normocephalic and Yes atraumatic Mouth: moist mucous membranes Resp Effort & Inspection: normal respiratory effort and able to speak in complete sentences Auscultation: no rales, no rhonchi, no wheezes and diminished lung sounds on the right in the lower lung deleon Cardio Rate: regular rate Rhythm: regular rhythm Skin Other: Few skin fragility wounds on both upper extremities Neuro General: patient oriented x3 Extrem Other: Osteoarthritic changes of both hands with no active synovitis Results Reviewed Results Reviewed: XR/XR chest 2V IMPRESSION: Redemonstration of right costophrenic angle blunting/pleural fluid. Persistent opacities in the mid to lower right lung and lower left lung with some interval increase. Differential considerations include atelectasis, pneumonia and other etiologies. Assessment & Plan Assessment & Plan (1) Seronegative rheumatoid arthritis: Comment: RTX 1 g X 2 doses 07/2023 Code(s): M06.00 - Rheumatoid arthritis without rheumatoid factor, unspecified site Plan: This is a 68-year-old male with seronegative RA and cryptogenic organizing pneumonia (labs showed borderline positive PL-7, ++DsDNA but no other clinical or serologic criteria for lupus) who presents for follow-up.? He is on prednisone 10 mg daily for the last 6 weeks. Upon evaluation today. I do not see any recurrence of inflammatory arthritis. His repeat chest x-ray showed some worsening of his opacity and right pleural effusion but there is no different symptomatically. Labs with stable inflammatory markers. Advised patient to remain on prednisone 10 mg daily for now. Will discuss case with Dr. Rowley. On other DMARD such as CellCept can be considered, but we will have to get clearance from Dr. Greene. Follow-up in 2 months Plan I spent 26 minutes reviewing patient's chart, reviewing his x-rays and blood work evaluating patient, counseling patient and documenting in the chart Coding Level of Care Code Est Pt Level 4 (51561) Diagnoses Seronegative rheumatoid arthritis M06.00
[2023-09-04 07:49] VITALS: BP 106/66; PULSE 76; TEMP 36.6; O2SAT 97; BMI 28.4
== END 2023-09-04 08:20 | disposition home or self-care (01) ==
PROVIDERS: PCP Nurse Practitioner Family; Visit Provider Student in an Organized Health Care Education/Training Program
DX: M06.00 Rheumatoid arthritis without rheumatoid factor, unspecified site (principal)
CPT/HCPCS: 99214

== ENCOUNTER → 2023-09-04 07:32 | Outpatient (BNVA) | payer MEDICARE, SELFPAY | PROVIDERS: PCP Nurse Practitioner Family; Visit Provider Student in an Organized Health Care Education/Training Program | DX: M06.00 Rheumatoid arthritis without rheumatoid factor, unspecified site (principal) | CPT/HCPCS: 99212 ==

== ENCOUNTER 2023-09-16 09:18 | Emergency (ER) | payer MEDICARE, SELFPAY ==
--- NOTE | ~2023-09-16 | XR_ITS ---
EXAMINATION: XR FINGER, LEFT CLINICAL INFORMATION: Laceration. Injury. COMPARISON: None available. TECHNIQUE: 3 views of the left thumb. FINDINGS: There is soft tissue laceration noted at the tip of the thumb and it does appear to be a faint crush fracture to the terminal tuft of the thumb. No radiopaque foreign body.. There is degenerative change noted at the first CMC joint. XR/XR finger LT min 2V IMPRESSION: Crush injury to the terminal tuft of the thumb.
[2023-09-16 09:23] VITALS: BP 176/81; PULSE 70; RESP 20; TEMP 37; O2SAT 98; BMI 28.9
--- NOTE | 2023-09-16 11:25 | ED_ITS ---
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 Admits that while constructing a cabinet for a neighbor this morning, he accidentally sliced his left thumb while using the table saw. The laceration immediately began bleeding. Reports washing it out with water prior to coming to the ED. He is able to move the left thumb without difficulty or pain. Denies fever, chills, N/V, difficulty moving left thumb or decreased ROM to left UE. Tetanus not UTD. Related Data Home Medications Medication Instructions Recorded Confirmed famotidine 10 mg tablet 10 mg PO DAILY PRN stomach prob 04/16/23 06/27/23 prednisone 10 mg tablet 10 mg PO DAILY 07/24/23 Previous Rx's Medication Instructions Recorded cephalexin 500 mg capsule 500 mg PO TID 7 days #21 caps 09/16/23 neomycin-bacitracn Zn-polymyx 3.5 1 appl topical DAILY PRN 09/16/23 mg-400 unit-5,000 unit/gram top laceration #14.2 grams oint (Neosporin ([id number])) Allergies Allergy/AdvReac Type Severity Reaction Status Date / Time morphine [MORPHINE] Allergy Intermediate HR DROPPED Verified 09/16/23 09:25 clarithromycin [Prevpac] AdvReac Intermediate depression Verified 09/16/23 09:25 (after taking for a few days) - includes most PPI lansoprazole [Prevpac] AdvReac Intermediate depression Verified 09/16/23 09:25 (after taking for a few days) - includes most PPI ranitidine [Zantac] AdvReac Intermediate depression Verified 09/16/23 09:25 (after taking for a few months) Prilosec AdvReac Intermediate depression Uncoded 09/04/23 07:51 (after taking for a few days) - includes most PPI Review of Systems 2 Review of Systems: Constitutional: No fever, chills, fatigue, night sweats, weight changes ENT/Mouth: No ear pain, hearing loss, nasal congestion, sinus pain, rhinorrhea, sore throat Eyes: No eye pain, swelling, redness, vision changes, discharge Cardio: No chest pain, palpitations, TURCIOS, orthopnea, peripheral edema Pulm: No SOB, cough, sputum, wheezing, dyspnea, hemoptysis GI: No nausea, vomiting, hematemesis, abdominal pain, diarrhea, constipation, hematochezia, melena : No irregular bleeding, dysuria, frequency, urgency, hesitancy, hematuria, flank pain, urinary flow changes, urinary incontinence or retention MSK: No back pain, neck pain, joint pain, myalgias Skin: No lesions, rashes, +laceration to left thumb Neuro: No weakness, numbness, paresthesias, LOC, dizziness, headache All other systems reviewed and are negative. [facility] Past Medical History Attestation statement: The following information was validated with the patient. Source: old records reviewed and nursing notes reviewed Medical History Pleural effusion Rheumatoid arthritis ILD (interstitial lung disease) Right knee meniscal tear Abnormal biliary HIDA scan Kidney stones [place] of foot Bradycardia Left shoulder pain Normal colonoscopy (~08/2011) Lumbar spondylosis Impaired fasting glucose Dyslipidemia Benign essential hypertension History of gastric ulcer Gastritis Internal hemorrhoids Diverticulosis Benign prostatic hyperplasia Alopecia (capitis) totalis History of Lyme disease (~2009) History of hepatitis C Surgical History History of liver biopsy History of prostate surgery Status post left rotator cuff repair (~11/2020) History of esophagogastroduodenoscopy (EGD) (~06/2019) History of medial meniscus repair of left knee (~12/2016) Hx laparoscopic cholecystectomy (~10/2012) History of right inguinal hernia repair (~2011) History of surgery on right wrist Family History Family History Father Gastric cancer Prostate cancer Family/Other Pancreas cancer Brother Skin cancer Social History Social History Household Members: None Housing: House Are you a primary career coordinator to a significant other at home: No Do you presently have visiting nurse or other home services: No Alcohol intake: never Patient Tobacco Use Status: Never used Tobacco e-Cigarette/Vaping Use: Never Used Second Hand Smoke Exposure: No Advance Directives: No Advance Directives Information Provided: No service: Yes Current occupational status: retired Cognitive needs: No Hearing needs: No Vision needs: Yes Physical Exam 2 Vital Signs: Vital Signs: Last Vital Signs Temp 98.6 F 09/16/23 09:23 Pulse 70 09/16/23 09:23 Resp 20 09/16/23 09:23 BP 176/81 H 09/16/23 09:23 Pulse Ox 98 09/16/23 09:23 O2 Del Method Room Air 09/16/23 09:23 BMI result Body Mass Index 28.9 Hypertensive, vitals otherwise wnl Const: General: cooperative, healthy appearing, comfortable, no acute distress, alert and awake Orientation/consciousness: patient oriented x3 L imitations: no limitations HEENT: Head: Yes normal to inspection, Yes normocephalic and Yes atraumatic Eyes: General: appearance normal, both eyes and all related structures C onjunctivae: conjunctivae normal Sclerae: sclerae normal Pupils: Equal, round and reactive pupils present Cardio: Rate: regular rate Rhythm: regular rhythm Skin: Other: + refer to photos below Neuro: General: patient oriented x3, gait normal, moves all extremities and no focal motor deficits Cranial nerves: Yes Equal, round and reactive pupils present Motor exam (neuro): 5/5 motor strength present throughout Extrem: Other: + refer to photos below + 5 cm laceration to pad of left thumb e xtending into top of thumb nail. No subungual hematoma. No involvement of nail plate. No visible foreign body. Not actively bleeding. No involvement of deeper structures. full ROM intact to MCP, DIP of left thumb. Finger to thumb opposition intact. 2+ radial and ulnar pulses to left. Course Course Course Narrative: Patient has full ROM intact to MCP, DIP to left thumb > no concern for tendon or ligament injury. Xrays showing crush injury to the terminal tuft of the left thumb. Plan for extensive irrigation with saline & iodine, tdap vaccine, and suture repair. 1417-- thumb laceration repaired with three 5-0 nylon sutures and steri strips using 15ml lido. Laceration has irregular borders with skin avulsion, only able to suture half of laceration. The other half covered with Steri-Strips. Patient still has full range of motion of the left arm. 2+ radial and ulnar pulses to LUE. Patient tolerated procedure well. Advised him to return in 7-10 days for suture removal. Provided him with ortho and hand surgery referral for fracture and advised him to follow up with them this week. Has remained stable throughout visit. All questions answered at this time. Discussed worrisome signs and symptoms of when to return to the ED. Patient is agreeable disposition stable for discharge. Medications Administered Discontinued Medications Generic Name Dose Route Start Last Admin Trade Name Freq PRN Reason Stop Dose Admin Diphtheria/Tetanus/Acell Pertussis 0.5 ml 09/16/23 12:17 09/16/23 12:34 Diphth,Pertus(Acell),Tet Adult 0.5 Ml Syringe IM 09/16/23 12:18 0.5 ml .ONCE ONE Administration Lidocaine HCl 5 ml 09/16/23 12:17 09/16/23 12:33 Lidocaine Hcl 1 % Mpf 5 Ml Vial INFILTRATI 09/16/23 12:18 5 ml ONCE ONE Administration Lidocaine HCl 5 ml 09/16/23 12:18 09/16/23 12:33 Lidocaine Hcl 1 % Mpf 5 Ml Vial INFILTRATI 09/16/23 12:19 5 ml ONCE ONE Administration Lidocaine HCl 5 ml 09/16/23 12:18 09/16/23 12:33 Lidocaine Hcl 1 % Mpf 5 Ml Vial INFILTRATI 09/16/23 12:19 5 ml ONCE ONE Administration Medical Decision Making Medical Decision Making MDM Narrative: 68 year old male with pmhx significant for seronegative RA, pleural effusion, PVCs, systolic murmur, ILD, pneumonia, gastric lymphoma, HTN, BPH, alopecia presents to the ED today for evaluation of laceration to left tumb s/p slicing it with a 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 Patient hypertensive to 176/81, vitals otherwise WNL. On exam, 5 cm laceration to pad of left thumb extending into top of thumb nail. No subungual hematoma. No involvement of nail plate. No visible foreign body. Not actively bleeding. No involvement of deeper structures. full ROM intact to MCP, DIP of left thumb. Finger to thumb opposition intact. 2+ radial and ulnar pulses to left. Clinical concern for laceration, fracture. Unlikely osteomyelitis, tendon/ligament injury. Plan for x-rays, tetanus shot, suture repair, re-evaluation. Differential Diagnosis Differential Diagnoses: The differential diagnosis associated with the presentation includes as above. Admission/Observation not indicated. Independent Interpretation I performed an independent interpretation of an: Plain X-Ray Interpretation: I have personally reviewed patient's finger xray and agree with radiologist's interpretation. Radiology Impression Discussion of test interpretation with radiology: I have reviewed the radiologist's reading. Radiologist Impression: XR finger LT min 2V IMPRESSION: Crush injury to the terminal tuft of the thumb. Prescription Management I considered prescription management with: Pain Medication and Antibiotic Social Determinants Patient?s care significantly limited by Social Determinants of Health including: Other Social Determinant of Health Procedures Laceration Laceration 1: Site: hand (thumb) Side (If applicable): left Size (cm): 3 Description: irregular and contaminated Depth: simple, single layer Local Anesthetic: lidocaine 1% Amount of anesthesia used (mL): 15 Pre-repair: wound explored, irrigated extensively, deep structures intact and extensive debridement Skin layer closed with: nylon Size (cm): 5-0 Number of sutures: 3 Technique: simple, interrupted Nerve Block Nerve Block 1: Time out performed: Yes Local Anesthetic: lidocaine 1% Amount of anesthesia used (mL): 15 Side: left Nerve Blocks: digital Procedure Successful: Yes Patient Tolerated Procedure: well Complications: none Critical Care Time Critical Care Time Critical Care Time: No Discharge Plan Discharge Clinical Impression: Laceration of thumb, Tetanus-diphtheria vaccination administered at current visit, Open fracture of tuft of distal phalanx of left thumb Patient Disposition: Home, Self-Care Instructions: Laceration (ED), Finger Laceration (ED), Thumb Fracture (ED) Additional Instructions: You were evaluated in the emergency department today for a laceration to your left thumb. The x-rays of your left thumb show a fracture of the tuft of your left thumb. The laceration was partially closed with 3 stitches. These need to stay clean dry and intact. You may go to your primary care office, urgent care or return back to the emergency department in 10 days (09/26/23) to have these stitches removed. Steri-Strips were applied to your laceration. Do not peel these off. These will fall off on their own. Apply bacitracin to the cut to prevent infection. Keflex is an antibiotic that has been sent to your pharmacy. Take this as prescribed, 3 times daily, over the next 7 days to prevent infection. A referral to our hand specialist, Dr. Rangel, has been provided to you. Please call them to schedule an appointment. They will not call you. The lidocaine should wear off over the next 8 hours. Your tetanus vaccination was updated today. If your stitches open, the area begins bleeding and your unable to control it, your thumb becomes hot or red, or you begin to lose color in your thumb, please return to the emergency department for evaluation. In the case of an emergency call 911. Susi Rangel, Hand Surgery: [phone] Prescriptions: New cephalexin 500 mg capsule 500 mg PO TID 7 Days Qty: 21 0RF Neosporin ([id number]) 3.5mg-400 unit- 5,000 unit/gram ointment 1 appl topical DAILY PRN (Reason: laceration) Qty: 14.2 0RF No Action famotidine 10 mg tablet 10 mg PO DAILY PRN (Reason: stomach prob) prednisone 10 mg tablet 10 mg PO DAILY Referrals: [facility] Orthopedic Surgeons [Provider Group] Susi Rangel MD [Physician] - Interventions: ED Discharge Assessment Last Done: 09/16/23 14:42 Discharge Date/Time: 09/16/23 14:44
[2023-09-16] MEDS: Lidocaine HCl 1 % MPF 5 ML VIAL INFILTRATI ×3 (12:33)
[2023-09-16] MEDS: Diphth,Pertus(ACell),Tet Adult 0.5 ML SYRINGE IM (12:34)
== END 2023-09-16 14:44 | disposition home or self-care (01) ==
PROVIDERS: Emergency Provider Emergency Medicine; PCP Nurse Practitioner Family
DX: S62.522B Displaced fracture of distal phalanx of left thumb, initial encounter for open fracture (principal); W27.0XXA Contact with workbench tool, initial encounter; Y93.89 Activity, other specified; Y92.008 Other place in unspecified non-institutional (private) residence as the place of occurrence of the external cause; Y99.9 Unspecified external cause status
CPT/HCPCS: 12002; 12032; 73140; 90471; 90715; 99283; 99284

== ENCOUNTER 2023-10-01 08:35 | Outpatient (AMB) | payer MEDICARE, SELFPAY ==
[2023-10-01 08:36] VITALS: BP 138/80; PULSE 60; O2SAT 96; BMI 28.9
--- NOTE | 2023-10-01 08:36 | MHC.PC.OV ---
Vital Signs 10/01/23 08:36 Height 5 ft 9 in Weight 196 lb BMI 28.9 BP 138/80 Blood Pressure Location Lt brachial Position Sitting Pulse 60 Pulse Source Pulse Oximeter Pulse Oximetry (%) 96 Oxygen Delivery Method Room Air Intake Visit Reasons: 3 month fu Intake Note: pt is here for 3 month f/u Energy Consultant Required: No Accompanied by: Self / Same As Patient Allergies morphine [MORPHINE] Allergy (Intermediate, Verified 10/01/23 08:37) HR DROPPED clarithromycin [Prevpac] Adverse Reaction (Intermediate, Verified 10/01/23 08:37) depression (after taking for a few days) - includes most PPI lansoprazole [Prevpac] Adverse Reaction (Intermediate, Verified 10/01/23 08:37) depression (after taking for a few days) - includes most PPI ranitidine [Zantac] Adverse Reaction (Intermediate, Verified 10/01/23 08:37) depression (after taking for a few months) Prilosec Adverse Reaction (Intermediate, Uncoded 09/30/23 08:27) depression (after taking for a few days) - includes most PPI Medication List - Last Reconciled 10/01/23 by Rudolph Kumari, [employer] famotidine 10 mg PO DAILY PRN prednisone 10 mg PO DAILY Tobacco use date assessed: 10/01/23 Fall risk assessment: No Falls in past year Last assessed Fall Risk: 10/01/23 Dental Screening Dental Screen Date: 10/01/23 Did you have a dental visit in the last 12 months?: Yes Did you have a dental problem in the last 6 months where you did not have access to dental care?: No Was dental information given to patient?: Patient has dentist HPI 3 month fu HPI Details Pt reports papular lesions to his forehead and left lateral aspect of his scalp. He has seen dermatology in the past. Will refer. Pt c/o a burning sensation beneath his left pec. He reports that this has been present for approx the past 4 months, this is the area he received radiation. Pt reports that this worsens throughout the day and can become very painful. I do think this is more musculoskeletal vs neuro. Denies fever, chills, and dizziness. HE is scheduled for a CT scan in the near future (hem/oncol). [facility] Medical History Pleural effusion Rheumatoid arthritis ILD (interstitial lung disease) Right knee meniscal tear Abnormal biliary HIDA scan Kidney stones [place] of foot Bradycardia Left shoulder pain Normal colonoscopy (~08/2011) Lumbar spondylosis Impaired fasting glucose Dyslipidemia Benign essential hypertension History of gastric ulcer Gastritis Internal hemorrhoids Diverticulosis Benign prostatic hyperplasia Alopecia (capitis) totalis History of Lyme disease (~2009) History of hepatitis C Surgical History History of liver biopsy History of prostate surgery Status post left rotator cuff repair (~11/2020) History of esophagogastroduodenoscopy (EGD) (~06/2019) History of medial meniscus repair of left knee (~12/2016) Hx laparoscopic cholecystectomy (~10/2012) History of right inguinal hernia repair (~2011) History of surgery on right wrist Family History Father Gastric cancer Prostate cancer Family/Other Pancreas cancer Brother Skin cancer Social History Household Members: None Housing: House Are you a primary health and social care teacher to a significant other at home: No Do you presently have visiting nurse or other home services: No Alcohol intake: never Patient Tobacco Use Status: Never used Tobacco e-Cigarette/Vaping Use: Never Used Second Hand Smoke Exposure: No service: Yes Current occupational status: retired Cognitive needs: No Hearing needs: No Vision needs: Yes Questionnaire PHQ-9 Over the last 2 weeks, how often have you been bothered by any of the following problems? 1. Little interest or pleasure in doing things: not at all 2. Feeling down, depressed, or hopeless: not at all 3. Trouble falling or staying asleep, or sleeping too much: not at all 4. Feeling tired or having little energy: not at all 5. Poor appetite or overeating: not at all 6. Feeling bad about yourself - or that you are a failure or have let yourself or your family down: not at all 7. Trouble concentrating on things, such as reading the newspaper or watching television: not at all 8. Moving or speaking so slowly that other people could have noticed. Or the opposite - being so fidgety or restless that you have been moving around a lot more than usual: not at all 9. Thoughts that you would be better off or of hurting yourself in some way: not at all Total score: 0 Depression Screening Interpretation: Negative Depression Screening Done: Yes 15395 - PHQ-9 Billing: Yes Source: Developed by Drs. Joshua Carreon, Erika Gomez, Filipe Hein and colleagues, with an educational paige from [employer]. Thrive Questionnaire Date Thrive assessed: 10/01/23 I am a: Patient What is your living situation today?: I have a steady place to live Within the past 12 months, did the food you bought not last and you didn't have the money to get more?: Never true Within the past 12 months, did you worry whether your food would run out before you got money to buy more?: Never true Do you have trouble paying for medicines?: No Do you have trouble getting transportation to medical appointments?: No Do you have trouble paying your heating and electricity bill?: No Do you have trouble taking care of your child, family member or friend?: No Do you have trouble with day-to-day activities such as bathing, preparing meals, shopping, managing finances, etc.?: No Are you currently unemployed and looking for a job?: No Are you interested in more education?: No Please select the resources that you would like help with: None Currently or been in a relationship where the following occur: no concerns reported THRIVE Score: 0 AUDIT C Alcohol Use Questionnaire (AUDIT-C) 1. How often do you have a drink containing alcohol?: Never 3. How often do you have six or more drinks on one occasion?: Never Total Score: 0 Score Reviewed/Action Taken: Yes BLAIR-7 AMB Questionnaire BLAIR-7 Date BLAIR - 7 assessed: 10/01/23 Feeling nervous, anxious, or on edge: 0 = Not at all Not being able to stop or control worryin = Not at all Worrying too much about different things: 0 = Not at all Trouble relaxin = Not at all Being so restless that it is hard to sit still: 0 = Not at all Becoming easily annoyed or irritable: 0 = Not at all Feeling afraid as if something awful might happen: 0 = Not at all Total BLAIR-7 score (0-4 normal; 5-9 mild; 10-14 moderate; 15-21 severe): 0 Source: Developed by Drs. Joshua Carreon, Erika Gomez, Filipe Hein and colleagues, with an educational paige from [employer]. BLAIR-7 Assessment Billing BLAIR-7 Assessment Tool: BLAIR-7 Assessment 97211 Review of Systems Const Reports as per HPI Physical exam (Primary Care) Vital Signs: Last Vital Signs Pulse 60 10/01/23 08:36 BP 138/80 10/01/23 08:36 Pulse Ox 96 10/01/23 08:36 Oxygen Delivery Method Room Air 10/01/23 08:36 BMI result Body Mass Index 28.9 Tobacco/Smoking Status: Tobacco use Status Tobacco use date assessed 10/01/23 10/01/23 08:45 Patient Tobacco Use Status Never used Tobacco 10/01/23 08:45 e-Cigarette/Vaping Use Never Used 10/01/23 08:45 PHQ-9: PHQ-9 Score PHQ-9: Total score 0 10/01/23 08:50 Depression Screening Interpretation: Negative Thrive Assessment: Date of Thrive Assessment Date Thrive assessed 10/01/23 10/01/23 08:45 Currently or been in a relationship where the following occur: no concerns reported Const General: cooperative Orientation/consciousness: patient oriented x3 Chest Other: Tenderness with palpation, no signs of erythema, ecchymosis, or open areas. no pain exacerbated with turning upper torso Chest/axillae images: 1. area of tenderness Resp Effort & Inspection: normal respiratory effort Auscultation: clear to auscultation bilaterally Cardio Rate: regular rate Rhythm: regular rhythm Heart sounds: S1 normal heart sound present, S2 normal heart sound present and no murmurs Skin Other: superior forehead with papular dry lesion, also noted to left lateral aspect of skull Neuro General: patient oriented x3 Psych Appearance: grossly normal Mental Status: mental status grossly normal Speech and movement: Normal speech and movement present Affect: normal affect Attitude: cooperative Thought process: Normal thought process present Thought content: Normal thought content present Insight: Good insight present (Psych) Judgement: Good judgement present (Psych) Assessment and Plan Assessment & Plan (1) Scalp lesion: Code(s): L98.9 - Disorder of the skin and subcutaneous tissue, unspecified Plan: Referred to derm (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 Scribed for ELEANOR Gold by Yaa Penaloza medical front desk coordinator, on 10/01/2023 at 08:50 EST. 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
== END 2023-10-01 09:16 | disposition home or self-care (01) ==
PROVIDERS: PCP Nurse Practitioner Family; Visit Provider Nurse Practitioner Family
DX: L98.9 Disorder of the skin and subcutaneous tissue, unspecified (principal); Q67.8 Other congenital deformities of chest
CPT/HCPCS: 99213

== ENCOUNTER 2023-10-16 08:54 | Outpatient (REF) | payer MEDICARE, SELFPAY ==
--- NOTE | ~2023-10-16 | XR_ITS ---
EXAMINATION: XR CHEST CLINICAL INFORMATION: Shortness of breath COMPARISON: Chest 08/18/2023 TECHNIQUE: 2 views of the chest were obtained. FINDINGS: No focal consolidation, interstitial pulmonary edema or pneumothorax. Mild thin linear opacities in the right mid to lower lung and left lower lung consistent with atelectasis and/or scar. The cardiomediastinal silhouette is within normal limits. Again seen is right costophrenic angle blunting/pleural fluid. Degenerative changes are seen in thoracic spine. XR/XR chest 2V IMPRESSION: 1. No significant interval change. 2. Right costophrenic angle blunting/pleural fluid.
== END 2023-10-16 08:55 | disposition home or self-care (01) ==
LOC: HO.XRAY 08:54
PROVIDERS: PCP Nurse Practitioner Family; Visit Provider Hospitalist
DX: R06.02 Shortness of breath (principal)
CPT/HCPCS: 71046

== ENCOUNTER 2023-10-29 08:47 | Outpatient (AMB) | payer MEDICARE, SELFPAY ==
[2023-10-29 08:50] VITALS: BP 132/70; PULSE 69; O2SAT 97; BMI 27.8
--- NOTE | 2023-10-29 08:50 | A.OFFVIS_ITS ---
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 Required: No Allergies morphine [MORPHINE] Allergy (Intermediate, Verified 10/29/23 08:52) HR DROPPED clarithromycin [Prevpac] Adverse Reaction (Intermediate, Verified 10/29/23 08:52) depression (after taking for a few days) - includes most PPI lansoprazole [Prevpac] Adverse Reaction (Intermediate, Verified 10/29/23 08:52) depression (after taking for a few days) - includes most PPI ranitidine [Zantac] Adverse Reaction (Intermediate, Verified 10/29/23 08:52) depression (after taking for a few months) Prilosec Adverse Reaction (Intermediate, Uncoded 10/29/23 08:52) depression (after taking for a few days) - includes most PPI HPI HPI Comments History of Present Illness Details The patient is a 68-year-old gentleman here for evaluation of an abnormal CT scan of the chest. The patient was in usual state health until in 2021 when he underwent a screening endoscopy for the evaluation reflux disease. 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 The patient did undergo radiation therapy. He was also referred to Oncology. Further workup included a PET scan. This was done in July 2022 and I did review the results. No significant FDG activity in the parenchymal lung tissue and no abnormalities noted. The patient did not have any significant lymphadenopathy either. Subsequently after that in September he had a CT scan of the abdomen and pelvis that demonstrated some lung cuts with bilateral areas of airspace disease and consolidations. Patient was asymptomatic. He was placed on antibiotics at that time and he started expectorating some. He was not having any respiratory issues at that time. Subsequently the patient developed the flu she started developing significant myalgia and fatigue arthralgias and was not feeling well. After that he started having worsening cough and shortness of breath and was not feeling well. He started developing pleuritic discomfort. He had a repeat CT scan at that time in October 2022 which was personally by me now demonstrating bilateral peripheral patchy consolidations with some cavitations which appears to me more likely a component of post viral Staph aureus infection. That or some degree of bacteremia. The patient was having significant symptoms and he was seen by urgent care with placement 7 days of Bactrim and also prednisone and he is significantly better at this time. Therefore likely that by treating the likely staph infection is feeling better. That being said he was having some findings on the CT scan of the abdomen prior to being sick. The question still stands is could he have some underlying bronch is associated lymphoma in addition to the gastric lymphoma of the very unlikely. Based on the fact the patient is feeling better on the Bactrim will going to extend the course the Bactrim to treating for total 21 days. Then we will repeat the imaging studies as long as he is doing well. If the patient is not doing well then we will consider bronchoscopy earlier on. Otherwise will repeat the CT scan in around 6 weeks to see if she still has any residual findings and if he does will go ahead and intervene with a diagnostic bronchoscopy. 12/11/2022 The patient is here for a pulmo nary follow up visit. The patient completed all the antibiotics. Initially feeling better, but, then started complaining of the dry cough and the left sided chest pain. Moderate in severity. He could not tolerate the prednisone after one day. Complaining of joing pains as well. He recently received a shot for his joint pain with likely cortisone which improved his symptoms. He has a repeat CT chest with persistent patchy consolidations and some scarring. Will need to undergo bloodwork and a bronchoscopy at this time. 01/23/2023 the patient is here for a pulm onary follow-up visit. He is feeling better on the prednisone. He is back to riding his bike. Has some limitations but much improved. Also still has some chest tightness around that left hemithorax but is slowly getting better. He was evaluated by Rheumatology. Blood work was all negative. Now is coming up to the end of the month on 10 mg of prednisone. Will go ahead and try to wean him slowly down until completely off in about 6 weeks. Afterwards will plan to repeat the CT scan in around 8-10 weeks to assess the area involved. Patient did have a chest x-ray on the 16 of January which I personally reviewed demonstrating some interval improvement of that airspace disease already although not completely back to baseline. 03/14/2023 the patient is here for sick visit. The patient apparently started prednisone his symptoms started to worsen again. Complaining of cough shortness of breath. Also has arthritis seems to be more active. He did follow-up with Rheumatology but his symptoms were pretty stable in the prednisone. He does have a follow-up pending. In the meantime because of his worsening respiratory symptoms his primary care doctor center for an x-ray demonstrating a new opacity in the right hemithorax suggesting again recurrent pneumonia. 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 For although he is also at risk for bacterial infections. I will place him on Levaquin. Will request a sputum culture. The patient exam bringing significant mucus at this time. He had a bad reaction to the prednisone however. Therefore, would not be unreasonable to put him on immunomodulator therapy to help him with his rh eumatoid arthritis and also his ongoing inflammatory condition and the lungs. Therefore, request blood work to make sure that his liver function and kidney function studies are normal and will start him immunomodulator therapy. 04/16/2023 the patient is here for a pulmo sagar follow-up visit. Overall he is feeling a lot better. Although he is on 60 mg of prednisone. His chest x-ray demonstrates improvement. Having hard time with sleep. He feels very active which she likes and being on the prednisone. Explained to him all the adverse effects of the prednisone and Goldy biggest concern is immuno suppression. Therefore he will need PCP prophylaxis. Will start decreasing down the prednisone and keep him on a 20 mg daily dose. Patient will talk to rheumatology regarding starting immunomodulator therapy. There is a concern from the patient's point of view about risk of lymphoma since he read up on the Internet. The patient understands that he does not have a lot options and will choose the best most effective medications always considering the risk benefit ratio. The patient will continue tapering down the prednisone and we will follow up with a repeat x-ray the in a couple months. 06/25/2023 the patient is here for a pul monary follow-up visit. The patient seems to be doing better at this time. He had few days where he felt some chest congestion. Therefore he did on holding off on the Rituxan injection. The patient now feels better. A chest x-ray recently and I did review it with him. Appears to have a small right-sided pleural effusion but others whitman the airsp sunita diseases significantly improved. He continues to be on 20 mg prednisone. The patient seems to be functioning well on the 20 mg at this time. Therefore, I did suggest that he continue the 20 until he gets his Rituxan dose and then he can taper it down accordingly. The patient follow-up with Rheumatology as well and further adjust the cortical steroid therapy. I am hoping that the Rituxan helps him and minimize the amount of steroids. When he returns in a couple months will do additional blood work to assess his in response immune system. The patient should also have a chest x-ray prior to the next visit. If his symptoms worsen or any concerns he is to call the office for an earlier assessment. 08/27/2023 the patient is here for pulmon david follow-up visit. The patient overall has been doing fairly well. Recently he started noticing increasing chest congestion. But minimal. The patient continues to be on 10 mg of prednisone. He is status post the Rituxan injection about 6-8 weeks ago. He does have blood work and a follow-up with his high tension tester soon. In the meantime we did have him go for a chest x-ray appears that he has had a slight increase in the airspace disease primarily on the right lower lobe and also right mid area. This is only minimal degree. Still, will continue to monitor his symptoms and will have a repeat chest x-ray in 3-4 weeks. He is going to see his high tension tester as well. In case his symptoms are worsening further adjustments of his medications may be warranted. But I am hopeful that he can continue on the lower dose prednisone specially with significant cushingoid appearance and high risk for adverse effects from the chronic prednisone use. Denies any fevers or chills low threshold to start antibiotics if his symptoms worsen. 10/29/2023 the patient is here for a pulm onary follow-up visit. Overall he is doing well. He continues on 10 mg of prednisone. He did follow-up with Rheumatology. Pretty happy with his results with rituximab. He did have a recent chest x-ray. We did personally reviewed. Those changes that he had as far as the opacity in the right hemithorax have improved. Overall his x-ray looks a lot better. Still getting some left-sided pleuritic chest discomfort. He did see Oncology and he was ordered to have a CT scan of chest sometime in November. In the meantime will start decreasing the prednisone some very slowly. Will try by 1 mg every 2 weeks to try to decrease at least to 7 mg. Will try to find the lowest most effective dose. If the patient has any trouble doing this he will call. Otherwise the patient does have some snoring. Denies any significant daytime drowsiness. Metcalfe score is only 5/24. Therefore hold off on a sleep study. He has had some weight gain likely from the steroids. Therefore if he does have an increased cardiovascular risk factors home sleep study will be helpful. [facility] Medical History Pleural effusion Rheumatoid arthritis ILD (interstitial lung disease) Right knee meniscal tear Abnormal biliary HIDA scan Kidney stones [place] of foot Bradycardia Left shoulder pain Normal colonoscopy (~08/2011) Lumbar spondylosis Impaired fasting glucose Dyslipidemia Benign essential hypertension History of gastric ulcer Gastritis Internal hemorrhoids Diverticulosis Benign prostatic hyperplasia Alopecia (capitis) totalis History of Lyme disease (~2009) History of hepatitis C Surgical History History of liver biopsy History of prostate surgery Status post left rotator cuff repair (~11/2020) History of esophagogastroduodenoscopy (EGD) (~06/2019) History of medial meniscus repair of left knee (~12/2016) Hx laparoscopic cholecystectomy (~10/2012) History of right inguinal hernia repair (~2011) History of surgery on right wrist Family History Father Gastric cancer Prostate cancer Family/Other Pancreas cancer Brother Skin cancer Social History Household Members: None Housing: House Are you a primary career technical education instructor to a significant other at home: No Do you presently have visiting nurse or other home services: No Alcohol intake: never Patient Tobacco Use Status: Never used Tobacco e-Cigarette/Vaping Use: Never Used Second Hand Smoke Exposure: No service: Yes Current occupational status: retired Cognitive needs: No Hearing needs: No Vision needs: Yes Review of Systems Const Denies chills, Denies fatigue, Denies fever(s) and Denies headache(s) ENT Denies headache(s), Denies odynophagia, Denies sinus pain and Denies sore throat Card Denies chest pain, Denies palpitations, Denies dyspnea and Reports dyspnea on exertion Resp Reports chest congestion, Reports cough, Denies pain on inspiration, Denies pain with cough, Denies dyspnea and Reports dyspnea on exertion GI Denies abdominal pain, Denies constipation, Denies heartburn, Denies diarrhea and Denies odynophagia Denies dysuria and Denies nocturia Musc Reports stiffness (residual stiffness in the left shoulder) Neuro Denies headache(s) Endo Denies fatigue and Denies palpitations Physical Exam Vital Signs: Last Vital Signs Pulse 69 10/29/23 08:50 BP 132/70 10/29/23 08:50 Pulse Ox 97 10/29/23 08:50 Oxygen Delivery Method Room Air 10/29/23 08:50 BMI result Body Mass Index 27.8 Const General: cooperative and healthy appearing Nutritional Appearance: well nourished Orientation/consciousness: patient oriented x3 Limitations: no limitations HEENT Head: Yes normal to inspection Eyes General: appearance normal, both eyes and all related structures Neck Neck: Yes normal visual inspection Chest Chest palpation & inspection: tenderness sternum and costochondral junction Resp Effort & Inspection: normal respiratory effort and able to speak in complete sentences Auscultation: diminished lung sounds Cardio Rhythm: regular rhythm Heart sounds: S1 normal heart sound present and S2 normal heart sound present Neuro General: patient oriented x3 Extrem General: Yes no clubbing, cyanosis or edema Assessment & Plan Assessment & Plan (1) ILD (interstitial lung disease): Code(s): J84.9 - Interstitial pulmonary disease, unspecified (2) Pneumonia: Code(s): J18.9 - Pneumonia, unspecified organism Qualifiers: Laterality: bilateral Lung location: unspecified part of lung Pneumonia type: due to unspecified organism Qualified Code(s): J18.9 - Pneumonia, unspecified organism (3) Inflammatory arthritis: Code(s): M19.90 - Unspecified osteoarthritis, unspecified site Plan Prednisone 10mg will wean by 1mg every 2 weeks until down to 7mg CXR better consider sleep study if symptomatic F/U 3-4 months Medications: New prednisone 10 mg (2 x 5 mg) PO DAILY 30 days 60 tabs 3RF prednisone 4 mg (4 x 1 mg) PO DAILY 30 days 120 tabs 2RF Coding Level of Care Code Est Pt Level 4 (74338) Diagnoses ILD (interstitial lung disease) J84.9 Pneumonia of both lungs due to infectious organism, unspecified part of lung J18.9 Laterality: bilateral Lung location: unspecified part of lung Pneumonia type: due to unspecified organism Inflammatory arthritis M19.90 Time Spent (min) 17
== END 2023-10-29 09:09 | disposition home or self-care (01) ==
PROVIDERS: PCP Nurse Practitioner Family; Visit Provider Hospitalist
DX: J84.9 Interstitial pulmonary disease, unspecified (principal); M19.90 Unspecified osteoarthritis, unspecified site
CPT/HCPCS: 99214

== ENCOUNTER → 2023-10-29 08:47 | Outpatient (BNVA) | payer MEDICARE, SELFPAY | PROVIDERS: PCP Nurse Practitioner Family; Visit Provider Hospitalist | DX: J84.9 Interstitial pulmonary disease, unspecified (principal); R91.8 Other nonspecific abnormal finding of lung field; M19.90 Unspecified osteoarthritis, unspecified site; Z79.52 Long term (current) use of systemic steroids | CPT/HCPCS: 99212 ==

== ENCOUNTER 2023-11-04 08:20 | Outpatient (AMB) | payer MEDICARE, SELFPAY ==
[2023-11-04 08:24] VITALS: BP 108/64; PULSE 74; O2SAT 94; BMI 29.2
--- NOTE | 2023-11-04 08:24 | A.OFFVIS_ITS ---
Intake Vital Signs 11/04/23 08:24 Height 5 ft 9 in Weight 197 lb 15.602 oz BMI 29.2 BP 108/64 Blood Pressure Location Rt brachial Position Sitting Pulse 74 Pulse Source Pulse Oximeter Pulse Oximetry (%) 94 Oxygen Delivery Method Room Air Intake Visit Reasons: COOP/CM Intake Note: Patient last seen 09/04/23 presents today for follow up. Reports fevers, ? of Dental infection vs RA flare; on abx for 4 days. Volunteer Services Manager Required: No Accompanied by: Self / Same As Patient Allergies morphine [MORPHINE] Allergy (Intermediate, Verified 11/04/23 08:28) HR DROPPED clarithromycin [Prevpac] Adverse Reaction (Intermediate, Verified 11/04/23 08:28) depression (after taking for a few days) - includes most PPI lansoprazole [Prevpac] Adverse Reaction (Intermediate, Verified 11/04/23 08:28) depression (after taking for a few days) - includes most PPI ranitidine [Zantac] Adverse Reaction (Intermediate, Verified 11/04/23 08:28) depression (after taking for a few months) Prilosec Adverse Reaction (Intermediate, Uncoded 11/04/23 08:28) depression (after taking for a few days) - includes most PPI Medication List - Last Reconciled 11/04/23 by Lee Ann Goyal MD famotidine 10 mg PO DAILY PRN prednisone 10 mg PO DAILY prednisone 10 mg (2 x 5 mg) PO DAILY 30 days prednisone 4 mg (4 x 1 mg) PO DAILY 30 days HPI HPI Comments History of Present Illness Details 68-year-old male with cryptogenic organi zing pneumonia and seronegative rheumatoid arthritis returns for follow-up. States that he has been doing fairly well overall with no joint pain, swelling, fevers, cough, chest pain or shortness of breath. About 10 days ago he saw his PCP and had dental work done, a few days later he had a fever, azithromycin was prescribed by his dentist 3 days ago with improvement of his fevers. He was having the fevers, prednisone would knock it down. His fevers are gone now. He will be seeing his dentist today. Initial history: This is a 67-year-old male presents for evaluation of diffuse joint pain. 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 He also has history of alopecia Universalis since 1986. 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 Since then he has limited extension of right wrist. He states that back in August of 2022 he started having right wrist pain and swelling. He was evaluated by [facility] and received an steroid injection in the right wrist which gave him total relief for a few weeks. In September he was having fatigue and some cough. CT chest showed findings suspicious of pneumonia. He received multiple rounds of antibiotics. He also received few courses of prednisone which provided significant relief of his overall joint pain. States that he would have pain in his wrists, hands, stiffness, difficulty closing his fingers, shoulder and elbow stiffness. He was evaluated by [facility] 4 days ago and received 2 injections in the left wrist which gave him dramatic relief of his generalized joint pain and stiffness. Patient is unaware of any family history of autoimmune rheumatic disease. He co ntinues to take meloxicam. [facility] Medical History Pleural effusion Rheumatoid arthritis ILD (interstitial lung disease) Right knee meniscal tear Abnormal biliary HIDA scan Kidney stones [place] of foot Bradycardia Left shoulder pain Normal colonoscopy (~08/2011) Lumbar spondylosis Impaired fasting glucose Dyslipidemia Benign essential hypertension History of gastric ulcer Gastritis Internal hemorrhoids Diverticulosis Benign prostatic hyperplasia Alopecia (capitis) totalis History of Lyme disease (~2009) History of hepatitis C Surgical History History of liver biopsy History of prostate surgery Status post left rotator cuff repair (~11/2020) History of esophagogastroduodenoscopy (EGD) (~06/2019) History of medial meniscus repair of left knee (~12/2016) Hx laparoscopic cholecystectomy (~10/2012) History of right inguinal hernia repair (~2011) History of surgery on right wrist Family History Father Gastric cancer Prostate cancer Family/Other Pancreas cancer Brother Skin cancer Social History Household Members: None Housing: House Are you a primary medicare insurance specialist to a significant other at home: No Do you presently have visiting nurse or other home services: No Alcohol intake: never Patient Tobacco Use Status: Never used Tobacco e-Cigarette/Vaping Use: Never Used Second Hand Smoke Exposure: No service: Yes Current occupational status: retired Cognitive needs: No Hearing needs: No Vision needs: Yes Review of Systems Card Denies dyspnea and Denies dyspnea on exertion Resp Denies cough, Denies pain with cough, Denies dyspnea and Denies dyspnea on exertion Musc Denies arthralgias, Denies joint swelling and Denies stiffness Physical Exam Vital Signs: Last Vital Signs Pulse 74 11/04/23 08:24 BP 108/64 11/04/23 08:24 Pulse Ox 94 11/04/23 08:24 Oxygen Delivery Method Room Air 11/04/23 08:24 BMI result Body Mass Index 29.2 Const General: cooperative, healthy appearing, comfortable and no acute distress Nutritional Appearance: overweight Orientation/consciousness: patient oriented x3 Limitations: no limitations HEENT Head: Yes normocephalic and Yes atraumatic Mouth: moist mucous membranes Resp Effort & Inspection: normal respiratory effort and able to speak in complete sentences Auscultation: no rales, no rhonchi, no wheezes and diminished lung sounds on the right in the lower lung deleon Cardio Rate: regular rate Rhythm: regular rhythm Neuro General: patient oriented x3 Extrem Other: Osteoarthritic changes of both hands with no active synovitis Results Reviewed Results Reviewed: XR/XR chest 2V IMPRESSION: Redemonstration of right costophrenic angle blunting/pleural fluid. Persistent opacities in the mid to lower right lung and lower left lung with some interval increase. Differential considerations include atelectasis, pneumonia and other etiologies. Assessment & Plan Assessment & Plan (1) Seronegative rheumatoid arthritis: Comment: RTX 1 g X 2 doses 07/2023 Code(s): M06.00 - Rheumatoid arthritis without rheumatoid factor, unspecified site Plan: This is a 68-year-old male with seronegative RA and cryptogenic organizing pneumonia (labs showed borderline positive PL-7, ++DsDNA but no other clinical or serologic criteria for lupus) who presents for follow-up.? He is on prednisone 10 mg daily. Has been doing fairly well until last week after having some dental work, followed by a fever, the fever has now resolved. Likely the fever was related to a mild dental infection that has resolved with azithromycin course. Keep prednisone at 10 mg daily for now, Check inflammatory markers in 2 weeks time, if inflammatory markers trending down or improved, I will ask patient to start tapering prednisone by 1 mg every 2 weeks to reach 5-7 mg daily Labs before next visit in 3 months Plan I spent 26 minutes reviewing patient's chart, reviewing his x-rays and blood work evaluating patient, counseling patient and documenting in the chart Orders: Orders C Reactive Protein 2 Weeks M06.00 - Rheumatoid arthritis without rheumatoid factor, unspecified site Erythrocyte Sedimentation Rate 2 Weeks M06.00 - Rheumatoid arthritis without rheumatoid factor, unspecified site Complete Blood Count Auto Diff 2 Weeks M06.00 - Rheumatoid arthritis without rheumatoid factor, unspecified site Comprehensive Met. Panel 2 Weeks M06.00 - Rheumatoid arthritis without rheumatoid factor, unspecified site Coding Level of Care Code Est Pt Level 4 (12682) Diagnoses Seronegative rheumatoid arthritis M06.00
== END 2023-11-04 09:36 | disposition home or self-care (01) ==
PROVIDERS: PCP Nurse Practitioner Family; Visit Provider Student in an Organized Health Care Education/Training Program
DX: M06.00 Rheumatoid arthritis without rheumatoid factor, unspecified site (principal)
CPT/HCPCS: 99214

== ENCOUNTER → 2023-11-04 08:20 | Outpatient (BNVA) | payer MEDICARE, SELFPAY | PROVIDERS: PCP Nurse Practitioner Family; Visit Provider Student in an Organized Health Care Education/Training Program | DX: M06.00 Rheumatoid arthritis without rheumatoid factor, unspecified site (principal) | CPT/HCPCS: 99212 ==

== ENCOUNTER 2023-11-13 06:18 | Outpatient (REF) | payer MEDICARE, SELFPAY ==
--- NOTE | ~2023-11-13 | CT_ITS ---
EXAMINATION: CT CHEST, ABDOMEN, AND PELVIS WITH CONTRAST CLINICAL INFORMATION: Follow-up pulmonary infiltrates with left sided chest tenderness, follow-up gastric lymphoma. COMPARISON: Chest CT from 03/21/[address] abdomen from 09/20/2022 TECHNIQUE: Multidetector volumetric CT imaging of the chest, abdomen, and pelvis was obtained after the administration of 85 mL of Omnipaque 350 intravenous contrast without immediate adverse reactions. Axial MIP volume rendering provided. Sagittal and coronal reformatted images were obtained. This CT examination was performed using dose optimization techniques as appropriate, variously including the following: *Automated exposure control *Adjustment of mA and/or kV according to patient size (this includes techniques or standardized protocols for targeted exams where dose is matched to indication/reason for exam; i.e. extremities or head) *Use of iterative reconstruction technique DLP: 399 mGy-cm FINDINGS: LUNGS: Seen previously airspace disease has been resolved. There are linear densities present in the right upper lobe, right middle lobe and right lower lobe most likely scarring after extensive pneumonia. Central airways are patent. MEDIASTINUM: The mediastinum appears unremarkable. CORONARY ARTERY CALCIFICATION: Not seen PLEURA: There is no pleural effusion. No pleural mass or thickening. AXILLA: No lymphadenopathy by size criteria. LIVER, GALLBLADDER, AND BILIARY TREE: The liver appears unremarkable in size, shape, and attenuation. No focal hepatic lesion or biliary ductal dilatation is appreciated. Gallbladder is surgically absent. PANCREAS: Unremarkable SPLEEN: Unremarkable ADRENAL GLANDS: Unremarkable KIDNEYS AND URETERS: The kidneys appear unremarkable in size, shape, and attenuation. No hydronephrosis, hydroureter, or calculi seen. BLADDER: Unremarkable GASTROINTESTINAL TRACT: The small and large bowel appear unremarkable. There is constipation with large amount of feces in the distal colon ABDOMINAL WALL: No significant hernia is appreciated. LYMPH NODES: No evidence of adenopathy by size criteria. VASCULAR: Unremarkable. PELVIC VISCERA: Prostate is surgically absent. OSSEOUS STRUCTURES: There is stable heterogeneous appearance of right posterior iliac bone, correlate with biopsy result CT/CT abdomen pelvis w IV con IMPRESSION: 1. Interval resolution of extensive pneumonia with residual scarring in the right lung. 2. Constipation. 3. Status post prostatectomy and cholecystectomy. 4. Stable heterogeneous appearance of right posterior iliac bone, correlate with biopsy result.
[2023-11-13] MEDS: iohexoL 350 MG/ML 75 ML INFUS..BTL 85 ML IV (09:44)
[2023-11-13] MEDS: Barium Sulfate Oral (Berry) 450 ML ORAL.SUSP 900 ML PO (09:45)
== END 2023-11-13 06:19 | disposition home or self-care (01) ==
LOC: HO.CT 06:18
PROVIDERS: PCP Nurse Practitioner Family; Visit Provider Internal Medicine Medical Oncology
DX: R91.8 Other nonspecific abnormal finding of lung field (principal); C85.99 Non-Hodgkin lymphoma, unspecified, extranodal and solid organ sites
CPT/HCPCS: 71260; 74177; Q9967

== ENCOUNTER 2023-11-13 09:23 | Outpatient (AMB) | payer MEDICARE, SELFPAY ==
[2023-11-13 10:33] VITALS: BP 130/80; PULSE 79; TEMP 36.3; O2SAT 95; BMI 29.4
--- NOTE | 2023-11-13 10:33 | MHC.OFFWIV ---
Intake Vital Signs 11/13/23 10:33 Height 5 ft 9 in Weight 199 lb BMI 29.4 BP 130/80 Blood Pressure Location Lt brachial Position Sitting Pulse 79 Pulse Source Pulse Oximeter Temp 97.4 F Temp Source Temporal Artery Scan Pulse Oximetry (%) 95 Oxygen Delivery Method Room Air Intake Visit Reasons: EP high BP pain back of legs (lobby) Intake Note: pt is here today for high BP that started 1 week ago Patient Tobacco Use Status: Never used Tobacco Allergies morphine [MORPHINE] Allergy (Intermediate, Verified 11/13/23 10:37) HR DROPPED clarithromycin [Prevpac] Adverse Reaction (Intermediate, Verified 11/13/23 10:37) depression (after taking for a few days) - includes most PPI lansoprazole [Prevpac] Adverse Reaction (Intermediate, Verified 11/13/23 10:37) depression (after taking for a few days) - includes most PPI ranitidine [Zantac] Adverse Reaction (Intermediate, Verified 11/13/23 10:37) depression (after taking for a few months) Prilosec Adverse Reaction (Intermediate, Uncoded 11/04/23 08:28) depression (after taking for a few days) - includes most PPI Do you need a note to return to daycare/school/sports/work: No HPI EP high BP pain back of legs (lobby) HPI Details This is a 68 year old male patient who regularly sees Rudolph Kumari for PCP. He presents to the [facility] today as he has recently noticed an increase in BP and pulse readings via home monitors over the past week. He states that typically, his BP is around 130s/80s or lower, and resting pulse is in the 40s-50s with only slight elevation with exercise. He reports that over the last week, his BP at home after activity has been as high as 190/100 at home, with a reading today (At home) of 165/90. He also reports that simply walking up the stairs will cause his HR to increase to 90s-100s. He denies any palpitations, chest pain, shortness of breath, or dizziness associated with these readings. He did report some left pectoral pressure/pain a couple of months ago, and cardiac eval was ordered by PCP. Patient [place] 4 [place] [facility] [place] [place]anst[place]acic [place] showed no obvious valvular pathology. 3 day holter monitor showed NSR with frequent bradycardia <60 without pauses. No frequent PVCs/PACs. Patient reports that he recently had a dental infection following a dental procedure and completed a Z-pack 1 week ago. He reports infection has resolved. [facility] Medical History Pleural effusion Rheumatoid arthritis ILD (interstitial lung disease) Right knee meniscal tear Abnormal biliary HIDA scan Kidney stones [place] of foot Bradycardia Left shoulder pain Normal colonoscopy (~08/2011) Lumbar spondylosis Impaired fasting glucose Dyslipidemia Benign essential hypertension History of gastric ulcer Gastritis Internal hemorrhoids Diverticulosis Benign prostatic hyperplasia Alopecia (capitis) totalis History of Lyme disease (~2009) History of hepatitis C Surgical History History of liver biopsy History of prostate surgery Status post left rotator cuff repair (~11/2020) History of esophagogastroduodenoscopy (EGD) (~06/2019) History of medial meniscus repair of left knee (~12/2016) Hx laparoscopic cholecystectomy (~10/2012) History of right inguinal hernia repair (~2011) History of surgery on right wrist Family History Father Gastric cancer Prostate cancer Family/Other Pancreas cancer Brother Skin cancer Social History Household Members: None Housing: House Are you a primary childcare attendant to a significant other at home: No Do you presently have visiting nurse or other home services: No Alcohol intake: never Patient Tobacco Use Status: Never used Tobacco e-Cigarette/Vaping Use: Never Used Second Hand Smoke Exposure: No service: Yes Current occupational status: retired Cognitive needs: No Hearing needs: No Vision needs: Yes Review of Systems Const All systems reviewed & are unremarkable except as noted in HPI and below Physical Exam Vital Signs: Last Vital Signs Temp 97.4 F 11/13/23 10:33 Pulse 79 11/13/23 10:33 BP 130/80 11/13/23 10:33 Pulse Ox 95 11/13/23 10:33 Oxygen Delivery Method Room Air 11/13/23 10:33 BMI result Body Mass Index 29.4 Const General: cooperative, healthy appearing, comfortable and no acute distress Nutritional Appearance: average body habitus Neck Neck: Yes no lymphadenopathy Resp Effort & Inspection: normal respiratory effort Auscultation: clear to auscultation bilaterally Cardio Palpation: normal PMI Rate: regular rate Rhythm: regular rhythm Extrem General: Yes capillary refill normal and Yes no clubbing, cyanosis or edema Psych Appearance: grossly normal Mental Status: mental status grossly normal Speech and movement: Normal speech and movement present Assessment & Plan Assessment & Plan (1) Elevated blood pressure reading: Code(s): R03.0 - Elevated blood-pressure reading, without diagnosis of hypertension Plan BP upon initial intake today was 130/80 as noted. I checked this again during visit and manual reading was 140/90. Pulse in 70s. We reviewed recent cardiac testing results. At this point I have not recommended any additional workup, however advised patient begin a BP/pulse log at home when monitoring these vitals so that a more consistent review/history can be obtained and reviewed as needed by either cardiology/PCP. He recently had a odontogenic infection and stopped azithromycin 1 week ago. No further pain. No fevers/chills. We discussed that his noticed increase in BP/pulse irritability with activity could possibly be contributed to this, however further conservative self-monitoring is appropriate at this time. I will copy note to PCP and if patient has consistently high BP/pulse readings at home I would like him to contact PCP for follow up. Certainly if any further symptoms occur in the interim including any chest pain, palpitations, dizziness, he should return to clinic or ED for further evaluation. Patient agrees to plan. Coding Level of Care Code Est Pt Level 4 (45553) Diagnoses Elevated blood pressure reading R03.0
== END 2023-11-13 12:09 | disposition home or self-care (01) ==
PROVIDERS: PCP Nurse Practitioner Family; Visit Provider Nurse Practitioner Family
DX: R03.0 Elevated blood-pressure reading, without diagnosis of hypertension (principal)
CPT/HCPCS: 99214

== ENCOUNTER 2024-01-13 09:03 | Outpatient (AMB) | payer MEDICARE, SELFPAY ==
--- NOTE | 2024-01-13 09:37 | A.OFFPC_ITS ---
Vital Signs 01/13/24 09:40 Height 5 ft 9 in Weight 198 lb BMI 29.2 BP 122/80 Blood Pressure Location Rt brachial Position Sitting Pulse 62 Pulse Source Pulse Oximeter Pulse Oximetry (%) 97 Oxygen Delivery Method Room Air Intake Visit Reasons: 4M F/U Allergies morphine [MORPHINE] Allergy (Intermediate, Verified 01/13/24 09:41) HR DROPPED azithromycin Adverse Reaction (Intermediate, Verified 01/13/24 09:55) Joint Pain clarithromycin [Prevpac] Adverse Reaction (Intermediate, Verified 01/13/24 09:41) depression (after taking for a few days) - includes most PPI lansoprazole [Prevpac] Adverse Reaction (Intermediate, Verified 01/13/24 09:41) depression (after taking for a few days) - includes most PPI ranitidine [Zantac] Adverse Reaction (Intermediate, Verified 01/13/24 09:41) depression (after taking for a few months) Prilosec Adverse Reaction (Intermediate, Uncoded 01/13/24 09:41) depression (after taking for a few days) - includes most PPI Tobacco use date assessed: 10/01/23 Fall risk assessment: No Falls in past year Last assessed Fall Risk: 01/13/24 Dental Screening Dental Screen Date: 10/01/23 HPI 4M F/U HPI Details HTN: Blood pressure is stable. Dyslipidemia: Will order labs. Denies chest pain, shortness of breath, headache, dizziness, and blurred vision. Pt reports feeling well overall. [facility] Medical History Pleural effusion Rheumatoid arthritis ILD (interstitial lung disease) Right knee meniscal tear Abnormal biliary HIDA scan Kidney stones [place] of foot Bradycardia Left shoulder pain Normal colonoscopy (~08/2011) Lumbar spondylosis Impaired fasting glucose Dyslipidemia Benign essential hypertension History of gastric ulcer Gastritis Internal hemorrhoids Diverticulosis Benign prostatic hyperplasia Alopecia (capitis) totalis History of Lyme disease (~2009) History of hepatitis C Surgical History History of liver biopsy History of prostate surgery Status post left rotator cuff repair (~11/2020) History of esophagogastroduodenoscopy (EGD) (~06/2019) History of medial meniscus repair of left knee (~12/2016) Hx laparoscopic cholecystectomy (~10/2012) History of right inguinal hernia repair (~2011) History of surgery on right wrist Family History Father Gastric cancer Prostate cancer Family/Other Pancreas cancer Brother Skin cancer Social History Household Members: None Housing: House Are you a primary career development director to a significant other at home: No Do you presently have visiting nurse or other home services: No Alcohol intake: never Patient Tobacco Use Status: Never used Tobacco e-Cigarette/Vaping Use: Never Used Second Hand Smoke Exposure: No service: Yes Current occupational status: retired Cognitive needs: No Hearing needs: No Vision needs: Yes Questionnaire Thrive Questionnaire Date Thrive assessed: 10/01/23 BLAIR-7 AMB Questionnaire BLAIR-7 Date BLAIR - 7 assessed: 10/01/23 Source: Developed by Drs. Joshua Carreon, Erika Gomez, Filipe Hein and colleagues, with an educational paige from [employer]. Review of Systems Const Reports as per HPI Physical exam (Primary Care) Vital Signs: Last Vital Signs Pulse 62 01/13/24 09:40 BP 122/80 01/13/24 09:40 Pulse Ox 97 01/13/24 09:40 Oxygen Delivery Method Room Air 01/13/24 09:40 BMI result Body Mass Index 29.2 Tobacco/Smoking Status: Tobacco use Status Tobacco use date assessed 10/01/23 01/13/24 09:39 Patient Tobacco Use Status Never used Tobacco 01/13/24 09:39 e-Cigarette/Vaping Use Never Used 01/13/24 09:39 Thrive Assessment: Date of Thrive Assessment Date Thrive assessed 10/01/23 01/13/24 09:39 Const General: cooperative Orientation/consciousness: patient oriented x3 Resp Effort & Inspection: normal respiratory effort Auscultation: clear to auscultation bilaterally Cardio Rate: regular rate Rhythm: regular rhythm Heart sounds: S1 normal heart sound present and S2 normal heart sound present Neuro General: patient oriented x3 Extrem Right lower extremity: no edema Left lower extremity: no edema Psych Appearance: grossly normal Mental Status: mental status grossly normal Speech and movement: Normal speech and movement present Affect: normal affect Attitude: cooperative Thought process: Normal thought process present Thought content: Normal thought content present Insight: Good insight present (Psych) Judgement: Good judgement present (Psych) Assessment and Plan Assessment & Plan (1) Dyslipidemia: Code(s): E78.5 - Hyperlipidemia, unspecified (2) HTN (hypertension): Code(s): I10 - Essential (primary) hypertension Plan: stable (3) Screening PSA (prostate specific antigen): Code(s): Z12.5 - Encounter for screening for malignant neoplasm of prostate Plan The patient agreed to the use of a spanish medical interpreter for this encounter. Scribed for LIZETTE Gold-BC by Yaa Penaloza spanish medical interpreter, on 01/13/2024 at 09:[address] Orders: Orders Complete Blood Count Auto Diff Today E78.5 - Hyperlipidemia, unspecified, I10 - Essential (primary) hypertension Comprehensive [place]. Panel Fast Today E78.5 - Hyperlipidemia, unspecified, I10 - Essential (primary) hypertension UA CC w/rflx Micro + Cult Today E78.5 - Hyperlipidemia, unspecified, I10 - Essential (primary) hypertension Prostate Specific Antigen Scr Today Z12.5 - Encounter for screening for malignant neoplasm of prostate TSH reflex Free T4 Today E78.5 - Hyperlipidemia, unspecified, I10 - Essential (primary) hypertension Lipid Panel Today E78.5 - Hyperlipidemia, unspecified, I10 - Essential (primary) hypertension Coding Level of Care Code Est Pt Level 3 (04680) Diagnoses Dyslipidemia E78.5 HTN (hypertension) I10 Screening PSA (prostate specific antigen) Z12.5
[2024-01-13 09:40] VITALS: BP 122/80; PULSE 62; O2SAT 97; BMI 29.2
== END 2024-01-13 10:15 | disposition home or self-care (01) ==
PROVIDERS: PCP Nurse Practitioner Family; Visit Provider Nurse Practitioner Family
DX: E78.5 Hyperlipidemia, unspecified (principal); I10 Essential (primary) hypertension; Z12.5 Encounter for screening for malignant neoplasm of prostate
CPT/HCPCS: 99213

== ENCOUNTER 2024-01-28 12:41 | Outpatient (REF) | payer MEDICARE, SELFPAY ==
[2024-01-28 13:23] LABS: MANUAL DIFF FLAG NO
[2024-01-28 13:46] LABS: Basophils Absolute Auto 0.1 X10*3/uL (0.0-0.2); Basophils Percent Auto 0.8 % (0-2); Eosinophils Absolute Auto 0.1 X10*3/uL (0.0-0.4); Eosinophils Percent Auto 0.6 % (0-4); Hematocrit 41.9 % (42.0-52.0); Hemoglobin 14.2 g/dl (14.0-18.0); Imm Gran Abs Auto 0.05 X10*3/uL (0.00-0.03); Imm Gran Pct Auto 0.6 % (0.0-0.4); Lymphocytes Absolute Auto 1.1 X10*3/uL (1.2-4.9); Lymphocytes Percent Auto 13.2 % (20-40); Mean Corpuscular HGB Conc 33.9 g/dl (31.0-36.0); Mean Corpuscular Hemoglobin 30.7 pg (27.0-33.0); Mean Corpuscular Volume 90.5 fL (80.0-98.0); Mean Platelet Volume 11.7 fL (9.4-12.4); Monocytes Absolute Auto 0.6 X10*3/uL (0.1-1.2); Monocytes Percent Auto 7.9 % (2-11); Neutrophils Absolute Auto 6.1 x10*3/uL (2.0-8.3); Neutrophils Percent Auto 76.9 % (45-73); Platelet Count 179 X10*3/uL (160-400); Red Blood Count 4.63 X10*6/uL (4.60-5.80); Red Cell Distribution Width 14.3 % (11.0-16.0); White Blood Count 7.9 X10*3/uL (4.8-10.8)
[2024-01-28 13:59] LABS: Alanine Aminotransferase 36 U/L (0-40); Albumin Level 4.3 g/dL (3.5-5.0); Alkaline Phosphatase 66 U/L (39-117); Anion Gap 8 (12-20); Aspartate Amino Transferase 33 U/L (5-37); Bilirubin Total 0.4 mg/dL (0.0-1.0); Blood Urea Nitrogen 21 mg/dL (9-16); C Reactive Protein 0.19 mg/dL (< or = 0.50); Calcium 10.1 mg/dL (8.4-10.2); Carbon Dioxide 26 mmol/L (22-29); Chloride 110 mmol/L (96-108); Estimated Glomerular Filt Rate 50; Glucose Random 111 mg/dL (60-115); Potassium 4.4 mmol/L (3.3-5.1); Sodium 140 mmol/L (135-145)
[2024-01-28 14:56] LABS: Erythrocyte Sedimentation Rate 4 MM/HR (0-15)
== END 2024-01-28 12:42 | disposition home or self-care (01) ==
LOC: HO.10HDL 12:41
PROVIDERS: Visit Provider Student in an Organized Health Care Education/Training Program
DX: M06.00 Rheumatoid arthritis without rheumatoid factor, unspecified site (principal)
CPT/HCPCS: 36415; 80053; 85025; 85652; 86140

== ENCOUNTER 2024-02-04 09:12 | Outpatient (AMB) | payer MEDICARE, SELFPAY ==
[2024-02-04 09:18] VITALS: BP 134/62; PULSE 63; O2SAT 96; BMI 28.6
--- NOTE | 2024-02-04 09:18 | MHC.OFFVIS ---
Vital Signs 02/04/24 09:18 Height 5 ft 9 in Weight 194 lb 0.108 oz BMI 28.6 BP 134/62 Blood Pressure Location Rt brachial Position Sitting Pulse 63 Pulse Source Pulse Oximeter Pulse Oximetry (%) 96 Oxygen Delivery Method Room Air Intake Visit Reasons: COOP/cm Intake Note: Pt seen today for follow up. Reports significant change in joint pain on 5mg of prednisone. 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: No Accompanied by: Self / Same As Patient Allergies morphine [MORPHINE] Allergy (Intermediate, Verified 02/04/24 09:27) HR DROPPED azithromycin Adverse Reaction (Intermediate, Verified 02/04/24 09:27) Joint Pain clarithromycin [Prevpac] Adverse Reaction (Intermediate, Verified 02/04/24 09:27) depression (after taking for a few days) - includes most PPI lansoprazole [Prevpac] Adverse Reaction (Intermediate, Verified 02/04/24 09:27) depression (after taking for a few days) - includes most PPI ranitidine [Zantac] Adverse Reaction (Intermediate, Verified 02/04/24 09:27) depression (after taking for a few months) Prilosec Adverse Reaction (Intermediate, Uncoded 02/04/24 09:27) depression (after taking for a few days) - includes most PPI Medication List - Last Reconciled 02/04/24 by Lee Ann Goyal MD prednisone 5 mg PO DAILY HPI Comments Details: 68-year-old male with cryptogenic organizing pneumonia and seronegative rheumatoid arthritis returns for follow-up. He just lowered his prednisone from 7.5 mg daily to 5 mg daily last week and he feels slightly more stiffness of his hands, he starting to have some right lower back, right hip aching and stiffness that was going on in the past but it improved as soon as he was started on prednisone. He denies any significant shortness of breath but states that when he takes a deep breath in the morning he feels some limitation of inspiration. Overall however he is feeling great compared to how he was last year. Initial history: This is a 67-year-old male presents for evaluation of diffuse joint pain. 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 He also has history of alopecia Universalis since 1986. 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 Since then he has limited extension of right wrist. He states that back in August of 2022 he started having right wrist pain and swelling. He was evaluated by [facility] and received an steroid injection in the right wrist which gave him total relief for a few weeks. In September he was having fatigue and some cough. CT chest showed findings suspicious of pneumonia. He received multiple rounds of antibiotics. He also received few courses of prednisone which provided significant relief of his overall joint pain. States that he would have pain in his wrists, hands, stiffness, difficulty closing his fingers, shoulder and elbow stiffness. He was evaluated by [facility] 4 days ago and received 2 injections in the left wrist which gave him dramatic relief of his generalized joint pain and stiffness. Patient is unaware of any family history of autoimmune rheumatic disease. He continues to take meloxicam. [facility] Medical History Pleural effusion Rheumatoid arthritis ILD (interstitial lung disease) Right knee meniscal tear Abnormal biliary HIDA scan Kidney stones [place] of foot Bradycardia Left shoulder pain Normal colonoscopy (~08/2011) Lumbar spondylosis Impaired fasting glucose Dyslipidemia Benign essential hypertension History of gastric ulcer Gastritis Internal hemorrhoids Diverticulosis Benign prostatic hyperplasia Alopecia (capitis) totalis History of Lyme disease (~2009) History of hepatitis C Surgical History History of liver biopsy History of prostate surgery Status post left rotator cuff repair (~11/2020) History of esophagogastroduodenoscopy (EGD) (~06/2019) History of medial meniscus repair of left knee (~12/2016) Hx laparoscopic cholecystectomy (~10/2012) History of right inguinal hernia repair (~2011) History of surgery on right wrist Family History Father Gastric cancer Prostate cancer Family/Other Pancreas cancer Brother Skin cancer Social History Household Members: None Housing: House Are you a primary care analyst to a significant other at home: No Do you presently have visiting nurse or other home services: No Alcohol intake: never Patient Tobacco Use Status: Never used Tobacco e-Cigarette/Vaping Use: Never Used Second Hand Smoke Exposure: No service: Yes Current occupational status: retired Cognitive needs: No Hearing needs: No Vision needs: Yes Review of Systems Card Denies dyspnea on exertion Resp Details: Discomfort with full inspiration Denies dyspnea on exertion Musc Denies arthralgias, Denies joint swelling and Reports stiffness Physical Exam Vital Signs: Last Vital Signs Pulse 63 02/04/24 09:18 BP 134/62 02/04/24 09:18 Pulse Ox 96 02/04/24 09:18 Oxygen Delivery Method Room Air 02/04/24 09:18 BMI result Body Mass Index 28.6 Const General: cooperative, healthy appearing, comfortable and no acute distress Nutritional Appearance: overweight Orientation/consciousness: patient oriented x3 Limitations: no limitations HEENT Head: Yes normocephalic and Yes atraumatic Mouth: moist mucous membranes Resp Effort & Inspection: normal respiratory effort and able to speak in complete sentences Auscultation: no rales, no rhonchi and no wheezes Cardio Rate: regular rate Rhythm: regular rhythm Neuro General: patient oriented x3 Extrem Other: Minimally positive left hand MCP squeeze test Negative straight leg raise test bilaterally No trochanteric bursa area tenderness bilaterally No knee pain with full flexion-extension Osteoarthritic changes of both hands with no active synovitis Results Reviewed Results Reviewed: EXAMINATION: CT CHEST, ABDOMEN, AND PELVIS WITH CONTRAST CLINICAL INFORMATION: Follow-up pulmonary infiltrates with left sided chest tenderness, follow-up gastric lymphoma. COMPARISON: Chest CT from 03/21/[address] abdomen from 09/20/2022 TECHNIQUE: Multidetector volumetric CT imaging of the chest, abdomen, and pelvis was obtained after the administration of 85 mL of Omnipaque 350 intravenous contrast without immediate adverse reactions. Axial MIP volume rendering provided. Sagittal and coronal reformatted images were obtained. This CT examination was performed using dose optimization techniques as appropriate, variously including the following: *Automated exposure control *Adjustment of mA and/or kV according to patient size (this includes techniques or standardized protocols for targeted exams where dose is matched to indication/reason for exam; i.e. extremities or head) *Use of iterative reconstruction technique DLP: 399 mGy-cm FINDINGS: LUNGS: Seen previously airspace disease has been resolved. There are linear densities present in the right upper lobe, right middle lobe and right lower lobe most likely scarring after extensive pneumonia. Central airways are patent. MEDIASTINUM: The mediastinum appears unremarkable. CORONARY ARTERY CALCIFICATION: Not seen PLEURA: There is no pleural effusion. No pleural mass or thickening. AXILLA: No lymphadenopathy by size criteria. LIVER, GALLBLADDER, AND BILIARY TREE: The liver appears unremarkable in size, shape, and attenuation. No focal hepatic lesion or biliary ductal dilatation is appreciated. Gallbladder is surgically absent. PANCREAS: Unremarkable SPLEEN: Unremarkable ADRENAL GLANDS: Unremarkable KIDNEYS AND URETERS: The kidneys appear unremarkable in size, shape, and attenuation. No hydronephrosis, hydroureter, or calculi seen. BLADDER: Unremarkable GASTROINTESTINAL TRACT: The small and large bowel appear unremarkable. There is constipation with large amount of feces in the distal colon ABDOMINAL WALL: No significant hernia is appreciated. LYMPH NODES: No evidence of adenopathy by size criteria. VASCULAR: Unremarkable. PELVIC VISCERA: Prostate is surgically absent. OSSEOUS STRUCTURES: There is stable heterogeneous appearance of right posterior iliac bone, correlate with biopsy result CT/CT chest w IV con IMPRESSION: 1. Interval resolution of extensive pneumonia with residual scarring in the right lung. 2. Constipation. 3. Status post prostatectomy and cholecystectomy. 4. Stable heterogeneous appearance of right posterior iliac bone, correlate with biopsy result. Assessment & Plan Assessment & Plan (1) Seronegative rheumatoid arthritis: Comment: RTX 1 g X 2 doses 07/2023 Code(s): M06.00 - Rheumatoid arthritis without rheumatoid factor, unspecified site Category: Medical Plan: This is a 68-year-old male with seronegative RA and cryptogenic organizing pneumonia (labs showed borderline positive PL-7, ++DsDNA but no other clinical or serologic criteria for lupus) who presents for follow-up.? He just lowered his prednisone 7.5 mg daily to 5 mg daily last week. Has been having some stiffness of his joints. I believe this is likely due to osteoarthritis that was masked by prednisone. Not likely active rheumatoid arthritis. Patient does not seem to have any pulmonary complaints. Overall doing great. Laboratory markers are normal. From Rheumatology point of view I would lower his prednisone to 2.5 mg daily in about a month or so. However patient can stay on [address] Rowley feels it is necessary. Patient has a follow-up appointment with Dr. Rowley in 1 month. Will continue to monitor patient clinically. Another course of rituximab can be given if needed Labs before next visit in 3 months Plan I spent 26 minutes reviewing patient's chart, reviewing his x-rays and blood work evaluating patient, counseling patient and documenting in the chart Orders: Orders Complete Blood Count Auto Diff 3 Months M06.00 - Rheumatoid arthritis without rheumatoid factor, unspecified site Comprehensive Met. Panel 3 Months M06.00 - Rheumatoid arthritis without rheumatoid factor, unspecified site C Reactive Protein 3 Months M06.00 - Rheumatoid arthritis without rheumatoid factor, unspecified site Erythrocyte Sedimentation Rate 3 Months M06.00 - Rheumatoid arthritis without rheumatoid factor, unspecified site Coding Level of Care Code Est Pt Level 4 (08075) Diagnoses Seronegative rheumatoid arthritis M06.00
== END 2024-02-04 09:52 | disposition home or self-care (01) ==
PROVIDERS: PCP Nurse Practitioner Family; Visit Provider Student in an Organized Health Care Education/Training Program
DX: M06.00 Rheumatoid arthritis without rheumatoid factor, unspecified site (principal)
CPT/HCPCS: 99214

== ENCOUNTER → 2024-02-04 09:12 | Outpatient (BNVA) | payer MEDICARE, SELFPAY | PROVIDERS: PCP Nurse Practitioner Family; Visit Provider Student in an Organized Health Care Education/Training Program | DX: M06.00 Rheumatoid arthritis without rheumatoid factor, unspecified site (principal); Z79.52 Long term (current) use of systemic steroids; Z87.01 Personal history of pneumonia (recurrent) | CPT/HCPCS: 99212 ==

== ENCOUNTER 2024-03-02 08:19 | Outpatient (AMB) | payer MEDICARE, SELFPAY ==
[2024-03-02 08:24] VITALS: BP 132/70; PULSE 51; O2SAT 97; BMI 29.5
--- NOTE | 2024-03-02 08:24 | MHC.OFFVIS ---
Vital Signs 03/02/24 08:24 Height 5 ft 9 in Weight 199 lb 8.293 oz BMI 29.5 BP 132/70 Blood Pressure Location Lt brachial Position Sitting Pulse 51 Pulse Source Pulse Oximeter Pulse Oximetry (%) 97 Oxygen Delivery Method Room Air Intake Visit Reasons: COPD Dermatology Nurse Required: No Allergies morphine [MORPHINE] Allergy (Intermediate, Verified 03/02/24 08:26) HR DROPPED azithromycin Adverse Reaction (Intermediate, Verified 03/02/24 08:26) Joint Pain clarithromycin [Prevpac] Adverse Reaction (Intermediate, Verified 03/02/24 08:26) depression (after taking for a few days) - includes most PPI lansoprazole [Prevpac] Adverse Reaction (Intermediate, Verified 03/02/24 08:26) depression (after taking for a few days) - includes most PPI ranitidine [Zantac] Adverse Reaction (Intermediate, Verified 03/02/24 08:26) depression (after taking for a few months) Prilosec Adverse Reaction (Intermediate, Uncoded 03/02/24 08:26) depression (after taking for a few days) - includes most PPI HPI Comments Details: The patient is a 68-year-old gentleman here for evaluation of an abnormal CT scan of the chest. The patient was in usual state health until in 2021 when he underwent a screening endoscopy for the evaluation reflux disease. 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 The patient did undergo radiation therapy. He was also referred to Oncology. Further workup included a PET scan. This was done in July 2022 and I did review the results. No significant FDG activity in the parenchymal lung tissue and no abnormalities noted. The patient did not have any significant lymphadenopathy either. Subsequently after that in September he had a CT scan of the abdomen and pelvis that demonstrated some lung cuts with bilateral areas of airspace disease and consolidations. Patient was asymptomatic. He was placed on antibiotics at that time and he started expectorating some. He was not having any respiratory issues at that time. Subsequently the patient developed the flu she started developing significant myalgia and fatigue arthralgias and was not feeling well. After that he started having worsening cough and shortness of breath and was not feeling well. He started developing pleuritic discomfort. He had a repeat CT scan at that time in October 2022 which was personally by me now demonstrating bilateral peripheral patchy consolidations with some cavitations which appears to me more likely a component of post viral Staph aureus infection. That or some degree of bacteremia. The patient was having significant symptoms and he was seen by urgent care with placement 7 days of Bactrim and also prednisone and he is significantly better at this time. Therefore likely that by treating the likely staph infection is feeling better. That being said he was having some findings on the CT scan of the abdomen prior to being sick. The question still stands is could he have some underlying bronch is associated lymphoma in addition to the gastric lymphoma of the very unlikely. Based on the fact the patient is feeling better on the Bactrim will going to extend the course the Bactrim to treating for total 21 days. Then we will repeat the imaging studies as long as he is doing well. If the patient is not doing well then we will consider bronchoscopy earlier on. Otherwise will repeat the CT scan in around 6 weeks to see if she still has any residual findings and if he does will go ahead and intervene with a diagnostic bronchoscopy. 08/27/2023 the patient is here for pulmonary follow-up visit. The patient overall has been doing fairly well. Recently he started noticing increasing chest congestion. But minimal. The patient continues to be on 10 mg of prednisone. He is status post the Rituxan injection about 6-8 weeks ago. He does have blood work and a follow-up with his rail operations controller soon. In the meantime we did have him go for a chest x-ray appears that he has had a slight increase in the airspace disease primarily on the right lower lobe and also right mid area. This is only minimal degree. Still, will continue to monitor his symptoms and will have a repeat chest x-ray in 3-4 weeks. He is going to see his rail operations controller as well. In case his symptoms are worsening further adjustments of his medications may be warranted. But I am hopeful that he can continue on the lower dose prednisone specially with significant cushingoid appearance and high risk for adverse effects from the chronic prednisone use. Denies any fevers or chills low threshold to start antibiotics if his symptoms worsen. 10/29/2023 the patient is here for a pulmonary follow-up visit. Overall he is doing well. He continues on 10 mg of prednisone. He did follow-up with Rheumatology. Pretty happy with his results with rituximab. He did have a recent chest x-ray. We did personally reviewed. Those changes that he had as far as the opacity in the right hemithorax have improved. Overall his x-ray looks a lot better. Still getting some left-sided pleuritic chest discomfort. He did see Oncology and he was ordered to have a CT scan of chest sometime in November. In the meantime will start decreasing the prednisone some very slowly. Will try by 1 mg every 2 weeks to try to decrease at least to 7 mg. Will try to find the lowest most effective dose. If the patient has any trouble doing this he will call. Otherwise the patient does have some snoring. Denies any significant daytime drowsiness. [place] score is only 5/24. Therefore hold off on a sleep study. He has had some weight gain likely from the steroids. Therefore if he does have an increased cardiovascular risk factors home sleep study will be helpful. 03/02/2024 the patient is here for a pulmonary follow-up visit. He continues to do well. He is on 5 mg of prednisone. We have been slowly decreasing it to avoid any rebound effect. Still reassuring. He had a repeat CT scan of the chest which is extremely better. A lot of the nodular densities have resolved. Therefore, going to continues work down to decrease the prednisone slowly. If the patient develops any symptoms in the process he can always call. As he decrease the prednisone he will monitor for any symptoms of adrenal insufficiency. If he has any issues or symptoms of any concerns she will call the office. [facility] Medical History Pleural effusion Rheumatoid arthritis ILD (interstitial lung disease) Right knee meniscal tear Abnormal biliary HIDA scan Kidney stones [place] of foot Bradycardia Left shoulder pain Normal colonoscopy (~08/2011) Lumbar spondylosis Impaired fasting glucose Dyslipidemia Benign essential hypertension History of gastric ulcer Gastritis Internal hemorrhoids Diverticulosis Benign prostatic hyperplasia Alopecia (capitis) totalis History of Lyme disease (~2009) History of hepatitis C Surgical History History of liver biopsy History of prostate surgery Status post left rotator cuff repair (~11/2020) History of esophagogastroduodenoscopy (EGD) (~06/2019) History of medial meniscus repair of left knee (~12/2016) Hx laparoscopic cholecystectomy (~10/2012) History of right inguinal hernia repair (~2011) History of surgery on right wrist Family History Father Gastric cancer Prostate cancer Family/Other Pancreas cancer Brother Skin cancer Social History Household Members: None Housing: House Are you a primary animal care supervisor to a significant other at home: No Do you presently have visiting nurse or other home services: No Alcohol intake: never Patient Tobacco Use Status: Never used Tobacco e-Cigarette/Vaping Use: Never Used Second Hand Smoke Exposure: No service: Yes Current occupational status: retired Cognitive needs: No Hearing needs: No Vision needs: Yes Review of Systems Const Denies chills, Denies fatigue, Denies fever(s) and Denies headache(s) ENT Denies headache(s), Denies odynophagia, Denies sinus pain and Denies sore throat Card Denies chest pain, Denies palpitations, Denies dyspnea and Denies dyspnea on exertion Resp Denies chest congestion, Reports cough, Denies pain on inspiration, Denies pain with cough, Denies dyspnea and Denies dyspnea on exertion GI Denies abdominal pain, Denies constipation, Denies heartburn, Denies diarrhea and Denies odynophagia Denies dysuria and Denies nocturia Musc Reports myalgias Neuro Denies headache(s) Endo Denies fatigue and Denies palpitations Physical Exam Vital Signs: Last Vital Signs Pulse 51 03/02/24 08:24 BP 132/70 03/02/24 08:24 Pulse Ox 97 03/02/24 08:24 Oxygen Delivery Method Room Air 03/02/24 08:24 BMI result Body Mass Index 29.5 Const General: cooperative and healthy appearing Nutritional Appearance: well nourished Orientation/consciousness: patient oriented x3 Limitations: no limitations HEENT Head: Yes normal to inspection Eyes General: appearance normal, both eyes and all related structures Neck Neck: Yes normal visual inspection Chest Chest palpation & inspection: tenderness sternum and costochondral junction Resp Effort & Inspection: normal respiratory effort and able to speak in complete sentences Auscultation: diminished lung sounds Cardio Rhythm: regular rhythm Heart sounds: S1 normal heart sound present and S2 normal heart sound present Neuro General: patient oriented x3 Extrem General: Yes no clubbing, cyanosis or edema Assessment & Plan Assessment & Plan (1) ILD (interstitial lung disease): Code(s): J84.9 - Interstitial pulmonary disease, unspecified Category: Medical (2) Inflammatory arthritis: Code(s): M19.90 - Unspecified osteoarthritis, unspecified site Category: Medical Plan Prednisone 5mg will wean by .5mg every 3-4 weeks consider sleep study if symptomatic F/U 2-3 months Coding Level of Care Code Est Pt Level 4 (43907) Complex EM visit Add On G2211 Diagnoses ILD (interstitial lung disease) J84.9 Inflammatory arthritis M19.90 Time Spent (min) 17
== END 2024-03-02 08:47 | disposition home or self-care (01) ==
PROVIDERS: PCP Nurse Practitioner Family; Visit Provider Hospitalist
DX: J84.9 Interstitial pulmonary disease, unspecified (principal); M19.90 Unspecified osteoarthritis, unspecified site
CPT/HCPCS: 99214; G2211

== ENCOUNTER → 2024-03-02 08:19 | Outpatient (BNVA) | payer MEDICARE, SELFPAY | PROVIDERS: PCP Nurse Practitioner Family; Visit Provider Hospitalist | DX: J84.9 Interstitial pulmonary disease, unspecified (principal); M19.90 Unspecified osteoarthritis, unspecified site | CPT/HCPCS: 99212 ==

== ENCOUNTER 2024-03-16 12:49 | Outpatient (REF) | payer MEDICARE, SELFPAY ==
[2024-03-16 13:50] LABS: MANUAL DIFF FLAG NO
[2024-03-16 14:36] LABS: Basophils Absolute Auto 0.1 X10*3/uL (0.0-0.2); Basophils Percent Auto 0.7 % (0-2); Eosinophils Absolute Auto 0.1 X10*3/uL (0.0-0.4); Eosinophils Percent Auto 1.3 % (0-4); Hematocrit 42.1 % (42.0-52.0); Hemoglobin 14.4 g/dl (14.0-18.0); Imm Gran Abs Auto 0.04 X10*3/uL (0.00-0.03); Imm Gran Pct Auto 0.5 % (0.0-0.4); Lymphocytes Absolute Auto 0.8 X10*3/uL (1.2-4.9); Lymphocytes Percent Auto 9.1 % (20-40); Mean Corpuscular HGB Conc 34.2 g/dl (31.0-36.0); Mean Corpuscular Hemoglobin 30.9 pg (27.0-33.0); Mean Corpuscular Volume 90.3 fL (80.0-98.0); Mean Platelet Volume 11.2 fL (9.4-12.4); Monocytes Absolute Auto 0.9 X10*3/uL (0.1-1.2); Monocytes Percent Auto 10.5 % (2-11); Neutrophils Absolute Auto 6.7 x10*3/uL (2.0-8.3); Neutrophils Percent Auto 77.9 % (45-73); Platelet Count 224 X10*3/uL (160-400); Red Blood Count 4.66 X10*6/uL (4.60-5.80); White Blood Count 8.6 X10*3/uL (4.8-10.8)
[2024-03-16 15:07] LABS: Alanine Aminotransferase 23 U/L (0-40); Albumin Level 4.3 g/dL (3.5-5.0); Alkaline Phosphatase 74 U/L (39-117); Anion Gap 13 (12-20); Aspartate Amino Transferase 23 U/L (5-37); Bilirubin Total 0.3 mg/dL (0.0-1.0); Blood Urea Nitrogen 16 mg/dL (9-16); C Reactive Protein 5.58 mg/dL (< or = 0.50); Calcium 9.8 mg/dL (8.4-10.2); Carbon Dioxide 23 mmol/L (22-29); Chloride 107 mmol/L (96-108); Estimated Glomerular Filt Rate > 60; Glucose Random 108 mg/dL (60-115); Potassium 4.1 mmol/L (3.3-5.1); Sodium 139 mmol/L (135-145); Total Protein 7.5 g/dL (6.5-8.0)
[2024-03-16 15:17] LABS: Erythrocyte Sedimentation Rate 20 MM/HR (0-15)
[2024-03-17 13:13] LABS: Prot Elec - Albumin 4.2 g/dL (3.8-4.8); Prot Elec - Alpha1 0.3 g/dL (0.2-0.3); Prot Elec - Alpha2 0.8 g/dL (0.5-0.9); Prot Elec - Beta 1 0.4 g/dL (0.4-0.6); Prot Elec - Beta 2 0.4 g/dL (0.2-0.5); Prot Elec - Gamma 0.9 g/dL (0.8-1.7)
[2024-03-17 21:13] LABS: Anti DNA DS Antibody 74 IU/mL
[2024-03-18 12:08] LABS: IgA 119 mg/dL (70-320); IgG 1032 mg/dL (600-1540); IgM 78 mg/dL (50-300)
== END 2024-03-16 12:50 | disposition home or self-care (01) ==
LOC: HO.LAB 12:49
PROVIDERS: PCP Nurse Practitioner Family; Visit Provider Student in an Organized Health Care Education/Training Program
DX: M06.00 Rheumatoid arthritis without rheumatoid factor, unspecified site (principal); M25.531 Pain in right wrist
CPT/HCPCS: 20605; 36415; 80053; 82784; 84165; 85025; 85652; 86140; 86225; 86334; 99212

== ENCOUNTER 2024-03-16 12:49 | Outpatient (AMB) | payer MEDICARE, SELFPAY ==
--- NOTE | 2024-03-16 12:53 | A.OFFVIS_ITS ---
Vital Signs 03/16/24 12:57 Height 5 ft 9 in Weight 193 lb 5.526 oz BMI 28.5 BP 122/70 Blood Pressure Location Rt brachial Position Sitting Pulse 61 Pulse Source Pulse Oximeter Pulse Oximetry (%) 97 Oxygen Delivery Method Room Air Intake Visit Reasons: right wrist pain Intake Note: Patient presents for right wrist pain. Allergies morphine [MORPHINE] Allergy (Intermediate, Verified 03/16/24 12:56) HR DROPPED azithromycin Adverse Reaction (Intermediate, Verified 03/16/24 12:56) Joint Pain clarithromycin [Prevpac] Adverse Reaction (Intermediate, Verified 03/16/24 12:56) depression (after taking for a few days) - includes most PPI lansoprazole [Prevpac] Adverse Reaction (Intermediate, Verified 03/16/24 12:56) depression (after taking for a few days) - includes most PPI ranitidine [Zantac] Adverse Reaction (Intermediate, Verified 03/16/24 12:56) depression (after taking for a few months) Prilosec Adverse Reaction (Intermediate, Uncoded 03/02/24 08:26) depression (after taking for a few days) - includes most PPI Medication List - Last Reconciled 03/16/24 by Lee Ann Goyal MD prednisone 5 mg PO DAILY HPI Comments Details: 68-year-old male with cryptogenic organizing pneumonia and seronegative rheumatoid arthritis returns for follow-up. He has been lowering his prednisone slowly. When he lowered his prednisone from 5 mg daily to 4.5 mg daily over the last 2 weeks he started having generalized joint pain, over the last few days he has been having significant swelling and inability to move his right wrist. He also has noticed wheezing when he lies down at night, gets wheezing with cycling, he also feels that he is cold at night. Has not taken his temperature however. Initial history: This is a 67-year-old male presents for evaluation of diffuse joint pain. 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 He also has history of alopecia Universalis since 1986. 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 Since then he has limited extension of right wrist. He states that back in August of 2022 he started having right wrist pain and swelling. He was evaluated by [facility] and received an steroid injection in the right wrist which gave him total relief for a few weeks. In September he was having fatigue and some cough. CT chest showe d findings suspicious of pneumonia. He received multiple rounds of antibiotics. He also received few courses of prednisone which provided significant relief of his overall joint pain. States that he would have pain in his wrists, hands, stiffness, difficulty closing his fingers, shoulder and elbow stiffness. He was evaluated by [facility] 4 days ago and received 2 injections in the left wrist which gave him dramatic relief of his generalized joint pain and stiffness. Patient is unaware of any family history of autoimmune rheumatic disease. He continues to take meloxicam. [facility] Medical History Pleural effusion Rheumatoid arthritis ILD (interstitial lung disease) Right knee meniscal tear Abnormal biliary HIDA scan Kidney stones [place] of foot Bradycardia Left shoulder pain Normal colonoscopy (~08/2011) Lumbar spondylosis Impaired fasting glucose Dyslipidemia Benign essential hypertension History of gastric ulcer Gastritis Internal hemorrhoids Diverticulosis Benign prostatic hyperplasia Alopecia (capitis) totalis History of Lyme disease (~2009) History of hepatitis C Surgical History History of liver biopsy History of prostate surgery Status post left rotator cuff repair (~11/2020) History of esophagogastroduodenoscopy (EGD) (~06/2019) History of medial meniscus repair of left knee (~12/2016) Hx laparoscopic cholecystectomy (~10/2012) History of right inguinal hernia repair (~2011) History of surgery on right wrist Family History Father Gastric cancer Prostate cancer Family/Other Pancreas cancer Brother Skin cancer Social History Household Members: None Housing: House Are you a primary care professionals to a significant other at home: No Do you presently have visiting nurse or other home services: No Alcohol intake: never Patient Tobacco Use Status: Never used Tobacco e-Cigarette/Vaping Use: Never Used Second Hand Smoke Exposure: No service: Yes Current occupational status: retired Cognitive needs: No Hearing needs: No Vision needs: Yes Review of Systems Card Reports dyspnea on exertion Resp Denies pain on inspiration, Denies pain with cough, Reports dyspnea on exertion and Reports wheezing Musc Reports myalgias, Reports arthralgias, Reports joint swelling, Reports limited range of motion and Reports stiffness Aller/Immun Reports wheezing Physical Exam Vital Signs: Last Vital Signs Pulse 61 03/16/24 12:57 BP 122/70 03/16/24 12:57 Pulse Ox 97 03/16/24 12:57 Oxygen Delivery Method Room Air 03/16/24 12:57 BMI result Body Mass Index 28.5 Const General: cooperative, healthy appearing, comfortable and no acute distress Nutritional Appearance: overweight Orientation/consciousness: patient oriented x3 Limitations: no limitations HEENT Head: Yes normocephalic and Yes atraumatic Mouth: moist mucous membranes Resp Effort & Inspection: normal respiratory effort and able to speak in complete sentences Cardio Rate: regular rate Rhythm: regular rhythm Neuro General: patient oriented x3 Extrem Other: Right wrist swelling, tenderness and pain with any range of motion Negative straight leg raise test bilaterally No trochanteric bursa area tenderness bilaterally No knee pain with full flexion-extension Osteoarthritic changes of both hands with no active synovitis Office Procedures Joint Injection/Aspiration Joint Injection/Aspiration Details: Right wrist Prep: site was prepped using sterile technique and ethochloride spray was applied Injected: 20 mg of, Kenalog, 1% plain lidocaine and in the joint Procedure: The patient tolerated the procedure well Coding Details: With patient's consent, The area over the dorsum of the right wrist was prepped with ChloraPrep then using a 27 gauge needle 20 mg of Kenalog mixed with 0.1 cc of 1% lidocaine was injected into the wrist joint space. The patient tolerated the procedure well with no immediate adverse events 84964 - Medium joint Procedure code (CPT) selection complete Results Reviewed Results Reviewed: EXAMINATION: CT CHEST, ABDOMEN, AND PELVIS WITH CONTRAST CLINICAL INFORMATION: Follow-up pulmonary infiltrates with left sided chest tenderness, follow-up gastric lymphoma. COMPARISON: Chest CT from 03/21/[address] abdomen from 09/20/2022 TECHNIQUE: Multidetector volumetric CT imaging of the chest, abdomen, and pelvis was obtained after the administration of 85 mL of Omnipaque 350 intravenous contrast without immediate adverse reactions. Axial MIP volume rendering provided. Sagittal and coronal reformatted images were obtained. This CT examination was performed using dose optimization techniques as appropriate, variously including the following: *Automated exposure control *Adjustment of mA and/or kV according to patient size (this includes techniques or standardized protocols for targeted exams where dose is matched to indication/reason for exam; i.e. extremities or head) *Use of iterative reconstruction technique DLP: 399 mGy-cm FINDINGS: LUNGS: Seen previously airspace disease has been resolved. There are linear densities present in the right upper lobe, right middle lobe and right lower lobe most likely scarring after extensive pneumonia. Central airways are patent. MEDIASTINUM: The mediastinum appears unremarkable. CORONARY ARTERY CALCIFICATION: Not seen PLEURA: There is no pleural effusion. No pleural mass or thickening. AXILLA: No lymphadenopathy by size criteria. LIVER, GALLBLADDER, AND BILIARY TREE: The liver appears unremarkable in size, shape, and attenuation. No focal hepatic lesion or biliary ductal dilatation is appreciated. Gallbladder is surgically absent. PANCREAS: Unremarkable SPLEEN: Unremarkable ADRENAL GLANDS: Unremarkable KIDNEYS AND URETERS: The kidneys appear unremarkable in size, shape, and attenuation. No hydronephrosis, hydroureter, or calculi seen. BLADDER: Unremarkable GASTROINTESTINAL TRACT: The small and large bowel appear unremarkable. There is constipation with large amount of feces in the distal colon ABDOMINAL WALL: No significant hernia is appreciated. LYMPH NODES: No evidence of adenopathy by size criteria. VASCULAR: Unremarkable. PELVIC VISCERA: Prostate is surgically absent. OSSEOUS STRUCTURES: There is stable heterogeneous appearance of right posterior iliac bone, correlate with biopsy result CT/CT chest w IV con IMPRESSION: 1. Interval resolution of extensive pneumonia with residual scarring in the right lung. 2. Constipation. 3. Status post prostatectomy and cholecystectomy. 4. Stable heterogeneous appearance of right posterior iliac bone, correlate with biopsy result. Assessment & Plan Assessment & Plan (1) Seronegative rheumatoid arthritis: Comment: RTX 1 g X 2 doses 07/2023 Code(s): M06.00 - Rheumatoid arthritis without rheumatoid factor, unspecified site Category: Medical Plan: This is a 68-year-old male with seronegative RA and cryptogenic organizing pneumonia (labs showed borderline positive PL-7, ++DsDNA but no other clinical or serologic criteria for lupus) who presents for follow-up.? Patient was doing relatively well on prednisone 5 mg daily, when he lowered it to 4.5 mg over the last 1-2 weeks he started having pain and stiffness of multiple joints, today he presents with active synovitis of the right wrist. Has also been complaining of wheezing with activity as well as wheezing at night in bed and feeling feverish. I think his autoimmune disease is active, rituximab generally works for approximately 6 months. I think patient needs another dose, 1 g x 2 doses 14 days apart I will work on setting this up for him. Advised patient to reach out to Dr. Rowley. Labs today With patient's consent, right wrist was injected with Kenalog today Plan I spent 26 minutes reviewing patient's chart, evaluating patient, ordering diagnostic workup, counseling patient and documenting in the chart Orders: Orders Comprehensive Met. Panel Today M06.00 - Rheumatoid arthritis without rheumatoid factor, unspecified site C Reactive Protein Today M06.00 - Rheumatoid arthritis without rheumatoid factor, unspecified site Erythrocyte Sedimentation Rate Today M06.00 - Rheumatoid arthritis without rheumatoid factor, unspecified site Anti DNA DS Antibody Today M06.00 - Rheumatoid arthritis without rheumatoid factor, unspecified site Complete Blood Count Auto Diff Today M06.00 - Rheumatoid arthritis without rheumatoid factor, unspecified site Immunofixation Pnl, Serum Today M06.00 - Rheumatoid arthritis without rheumatoid factor, unspecified site Protein Electrophoresis, Serum Today M06.00 - Rheumatoid arthritis without rheumatoid factor, unspecified site AMB Joint Injection/Aspiration Today M06.00 - Rheumatoid arthritis without rheumatoid factor, unspecified site Coding Level of Care Code Est Pt Level 4 (72230) Diagnoses Seronegative rheumatoid arthritis M06.00 CPT Codes Coding - Medium joint: 10405 - Medium joint ([id number])
[2024-03-16 12:57] VITALS: BP 122/70; PULSE 61; O2SAT 97; BMI 28.5
== END 2024-03-16 13:20 | disposition home or self-care (01) ==
PROVIDERS: PCP Nurse Practitioner Family; Visit Provider Student in an Organized Health Care Education/Training Program
DX: M06.09 Rheumatoid arthritis without rheumatoid factor, multiple sites (principal); M25.531 Pain in right wrist
CPT/HCPCS: 20605; 99213

== ENCOUNTER 2024-04-14 08:46 | Emergency (ER) | payer MEDICARE, SELFPAY ==
--- NOTE | ~2024-04-14 | XR_ITS ---
EXAMINATION: XR CHEST CLINICAL INFORMATION: Fevers COMPARISON: Chest radiograph 10/16/2023. CT 11/13/2023. TECHNIQUE: 2 views of the chest were obtained. FINDINGS: There are scattered patchy opacities throughout both lungs, increased in the left lower lobe and lingula concerning for multifocal pneumonia. No pleural effusion. Stable cardiomediastinal silhouette. XR/XR chest 2V IMPRESSION: Mild multifocal patchy opacities, increased in the left lower lobe and lingula since the previous study, concerning for multifocal pneumonia. Electronically signed by: Prabhjot Florez MD 04/14/2024 11:45 AM EDT
[2024-04-14 08:57] VITALS: BP 133/81; PULSE 77; RESP 16; TEMP 37.6; O2SAT 95; BMI 27.5
[2024-04-14 09:04] VITALS: BP 133/81; PULSE 77; RESP 16; TEMP 37.6; O2SAT 95
--- NOTE | 2024-04-14 09:11 | ED_ITS ---
HPI - Fever General Chief Complaint: Fever Stated Complaint: Covid+ Time Seen by Provider: 04/14/24 09:00 Source: patient Mode of arrival: ambulatory Limitations: no limitations History of Present Illness ED Provider: antonietta HPI Narrative: Patient is a 69-year-old male with history of rheumatoid arthritis, recent flare around 1 month ago for which he was treated with prednisone and biologic infusion, diagnosed with Covid 10 days ago presenting to the emergency department with ongoing fevers and productive cough. States fevers spike at night, T-max 103?, resolved during the day. Has been using Tylenol and ibuprofen. States cough is productive but he has not looked at the sputum. Denies chest pain or palpitations. He was not treated with an antiviral medication at the time of diagnosis with Covid. States he was doing ok, then on Friday began to feel much worse and have high fevers. MD elicited complaint: fever Pertinent past history: immunosuppression Onset (ago): day(s) Context: on immunosuppressant(s) Associated symptoms: cough Treatments prior to arrival fever: acetaminophen and ibuprofen Related Data Previous Rx's ?Medication ?Instructions ?Recorded prednisone 20 mg tablet See Rx Instructions PO .COMPLEX 03/24/24 #73 tabs amoxicillin 875 mg-potassium 1 tab PO BID #14 tabs 04/14/24 clavulanate 125 mg tablet doxycycline hyclate 100 mg capsule 100 mg PO BID #10 caps 04/14/24 Allergies Allergy/AdvReac Type Severity Reaction Status Date / Time morphine [MORPHINE] Allergy Intermediate HR DROPPED Verified 04/14/24 09:00 azithromycin AdvReac Intermediate Joint Pain Verified 04/14/24 09:00 clarithromycin [Prevpac] AdvReac Intermediate depression Verified 04/14/24 09:00 (after taking for a few days) - includes most PPI lansoprazole [Prevpac] AdvReac Intermediate depression Verified 04/14/24 09:00 (after taking for a few days) - includes most PPI ranitidine [Zantac] AdvReac Intermediate depression Verified 04/14/24 09:00 (after taking for a few months) Prilosec AdvReac Intermediate depression Uncoded 04/14/24 09:00 (after taking for a few days) - includes most PPI Review of Systems Review of Systems: As per HPI. Yes all other systems are reviewed and are negative Constitutional: Constitutional: Reports as per HPI [facility] Past Medical History Medical History Pleural effusion Rheumatoid arthritis ILD (interstitial lung disease) Right knee meniscal tear Abnormal biliary HIDA scan Kidney stones [place] of foot Bradycardia Left shoulder pain Normal colonoscopy (~08/2011) Lumbar spondylosis Impaired fasting glucose Dyslipidemia Benign essential hypertension History of gastric ulcer Gastritis Internal hemorrhoids Diverticulosis Benign prostatic hyperplasia Alopecia (capitis) totalis History of Lyme disease (~2009) History of hepatitis C Surgical History History of liver biopsy History of prostate surgery Status post left rotator cuff repair (~11/2020) History of esophagogastroduodenoscopy (EGD) (~06/2019) History of medial meniscus repair of left knee (~12/2016) Hx laparoscopic cholecystectomy (~10/2012) History of right inguinal hernia repair (~2011) History of surgery on right wrist Family History Family History Father Gastric cancer Prostate cancer Family/Other Pancreas cancer Brother Skin cancer Social History Social History Household Members: None Housing: House Are you a primary director of career services to a significant other at home: No Do you presently have visiting nurse or other home services: No Alcohol intake: never Patient Tobacco Use Status: Never used Tobacco e-Cigarette/Vaping Use: Never Used Second Hand Smoke Exposure: No Advance Directives: No Advance Directives Information Provided: No Do you have a plan to hurt others: No Plan service: Yes Current occupational status: retired Cognitive needs: No Hearing needs: No Vision needs: Yes Physical Exam Vital Signs: Vital Signs: Last Vital Signs Temp 99.6 F 04/14/24 09:04 Pulse 77 04/14/24 09:04 Resp 16 04/14/24 09:04 BP 133/81 04/14/24 09:04 Pulse Ox 95 04/14/24 09:04 O2 Del Method Room Air 04/14/24 09:04 BMI result Body Mass Index 27.5 Vital signs have been reviewed and appear to be correct. Blood pressure normal. Heart rate normal. Respiratory rate normal. Temperature normal. Oxygen saturation normal. Const: General: cooperative, healthy appearing and no acute distress Orientation/consciousness: oriented to person, oriented to place, oriented to time and patient oriented x3 Limitations: no limitations HEENT: Head: Yes normocephalic and Yes atraumatic Ears: external ears normal General nose exam: Normal external nose present Face and sinus: Yes face symmetric Mouth: oropharynx normal and moist mucous membranes Throat: Yes uvula midline Eyes: Pupils: Equal, round and reactive pupils present Neck: Neck: Yes normal visual inspection and Yes supple Resp: Effort & Inspection: normal respiratory effort and able to speak in complete sentences Auscultation: clear to auscultation bilaterally Cardio: Rate: regular rate Rhythm: regular rhythm Heart sounds: S1 normal heart sound present and S2 normal heart sound present GI: Palpation (GI): Soft to palpation and nontender Auscultation: normoactive bowel sounds : General: Yes no CVA tenderness Back/Spine/Pelvis: Back: no CVA tenderness Skin: General skin exam: elasticity normal and turgor normal Neuro: General: oriented to person, oriented to place, oriented to time, patient oriented x3, moves all extremities, no focal motor deficits and CN's II- XI intact bilaterally Cranial nerves: Yes Equal, round and reactive pupils present Cognition (Neuro): normal cognition Extrem: General: Yes full ROM, Yes no pedal edema and Yes no calf tenderness Psych: Mental Status: mental status grossly normal Affect: normal affect Thought process: Normal thought process present Medical Decision Making Medical Decision Making MDM Narrative: Patient is a 69-year-old male with history of rheumatoid arthritis, recent flare around 1 month ago for which he was treated with prednisone and biologic infusion, diagnosed with Covid 10 days ago presenting to the emergency department with ongoing fevers and productive cough. On exam patient is awake, A+Ox3, VS WNL, afebrile, normal neurological exam without focal deficits, physical exam findings as above. Given reported symptoms and physical exam findings, initial differential includes bronchitis, pneumonia, ongoing Covid infection. X-ray notable for multifocal pneumonia. My interpretation is in agreement with the radiologist's interpretation. Patient updated on results and all questions answered. Given that patient is immunocompromised, will treat with Augmentin and doxycycline. Patient states he plans to follow up with his chief telephone operator today. Discussed with patient that he will need follow-up chest x-ray in 4-6 weeks to ensure resolution of pneumonia. Return precautions di scussed at bedside. Patient verbalized understanding of and agreement with plan. Differential Diagnosis Differential Diagnoses: The differential diagnosis associated with the presentation includes As per MDM. Independent Interpretation I performed an independent interpretation of an: Plain X-Ray Interpretation: X-ray notable for multifocal pneumonia. Radiology Impression Discussion of test interpretation with radiology: I have reviewed the radiologist's reading. Radiologist Impression: XR/XR chest 2V IMPRESSION: Mild multifocal patchy opacities, increased in the left lower lobe and lingula since the previous study, concerning for multifocal pneumonia. External Record Review External record reviewed: Inpatient record, Office record and Outpatient record Prescription Management I considered prescription management with: Antibiotic Discharge Plan Discharge Clinical Impression: Multifocal pneumonia Patient Disposition: Home, Self-Care Instructions: Community Acquired Pneumonia (DC), Pneumonia (ED) Additional Instructions: You were evaluated in the emergency department today for cough and shortness of breath. Your chest x-ray shows evidence of pneumonia. You are being treated with antibiotics, please complete the full course as prescribed. Please call your primary care provider within the next 2-3 days to schedule a follow-up appointment. You will need a repeat chest x-ray to confirm resolution of your pneumonia. 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 R eturn to the emergency department if you develop worsening shortness of breath, chest pain, palpitations, fever 100.4? F or greater, or any other concerning symptoms. Prescriptions: New amoxicillin-pot clavulanate 875-125 mg tablet 1 tab PO BID Qty: 14 0RF doxycycline hyclate 100 mg capsule 100 mg PO BID Qty: 10 0RF No Action prednisone 20 mg tablet See Rx Instructions PO .COMPLEX Qty: 73 0RF Rx Instructions: Take 2 tabs daily for 2 weeks then 1 tab daily for 6 weeks Print Language: Georgian
[2024-04-14 12:17] VITALS: BP 133/81; PULSE 77; RESP 16; TEMP 37.6; O2SAT 95
== END 2024-04-14 12:18 | disposition home or self-care (01) ==
PROVIDERS: Emergency Provider Emergency Medicine; PCP Nurse Practitioner Family
DX: J18.9 Pneumonia, unspecified organism (principal); R05.9 Cough, unspecified; R50.9 Fever, unspecified
CPT/HCPCS: 71046; 99283

== ENCOUNTER 2024-04-18 11:00 | Inpatient (IN) | payer MEDICARE, SELFPAY ==
[2024-04-18] VITALS (9 sets, daily range): BP systolic 114–135; BP diastolic 72–83; PULSE 54–76; RESP 15–22; TEMP 36.6–36.8; O2SAT 88–97; BMI 27.5
--- NOTE | ~2024-04-18 | CT_ITS ---
EXAMINATION: CT ANGIOGRAM OF THE CHEST WITH AND WITHOUT CONTRAST (CT PULMONARY ANGIOGRAM FOR PE) CLINICAL INFORMATION: hypoxia, dyspnea, r/o PE COMPARISON: 04/18/2024 TECHNIQUE: Prior to contrast administration, noncontrast localization images were obtained. Subsequently, multidetector volumetric imaging was performed from the thoracic inlet to the pubic symphysis through the chest, abdomen, and pelvis following the administration of 65 mL Omnipaque 350 intravenous contrast. No contrast reaction reported Sagittal, coronal, and MIP oblique sagittal (through the chest only) reformatted images were obtained on the CT workstation, uploaded to PACS, and reviewed. This CT examination was performed using dose optimization techniques as appropriate, variously including the following: *Automated exposure control *Adjustment of mA and/or kV according to patient size (this includes techniques or standardized protocols for targeted exams where dose is matched to indication/reason for exam; i.e. extremities or head) *Use of iterative reconstruction technique Total exam dose-length product: 231 mGy-cm FINDINGS: QUALITY OF STUDY/CONTRAST BOLUS: Satisfactory. PULMONARY ARTERIES: No central or segmental pulmonary emboli. THORACIC AORTA: No aneurysm or dissection. LUNG: Multifocal groundglass infiltrates are seen along with coarsened reticular markings at the lung bases and scattered areas of focal consolidation are seen. Findings appear similar to 04/18/2024, but minimally worse. PLEURA: No pleural effusion or pneumothorax. MEDIASTINUM: Normal heart size. No pericardial effusion. No hilar or mediastinal lymphadenopathy. No evidence of septal bowing or right heart strain. Moderate coronary calcium. CHEST WALL/AXILLA: No axillary or internal mammary lymphadenopathy. OSSEOUS STRUCTURES: No acute or suspicious osseous abnormality. VISUALIZED ABDOMEN: There is hepatic steatosis. Status post cholecystectomy. No other abnormality in the upper abdomen. CT/CT angio chest PE protocol IMPRESSION: 1. No evidence of pulmonary emboli. 2. Multifocal groundglass infiltrates with coarsened reticular markings at the lung bases and scattered areas of focal consolidation. Findings appear similar to 04/18/2024, but minimally worse. 3. Hepatic steatosis. VTE: negative. Fleischner guidelines were followed. Electronically signed by: Kody Goss MD 04/22/2024 03:38 PM EDT
--- NOTE | ~2024-04-18 | XR_ITS ---
EXAMINATION: XR CHEST CLINICAL INFORMATION: Pnuemonia COMPARISON: Chest radiograph 04/18/2024 TECHNIQUE: Frontal view of the chest was obtained. FINDINGS: The lungs are hypoexpanded. Interval worsening of multifocal bilateral patchy airspace opacities and interstitial markings. No significant pleural effusions. No pneumothorax. The cardiomediastinal silhouette is unchanged. Degenerative changes of the thoracic spine. XR/XR chest 1V IMPRESSION: Interval worsening of multifocal bilateral patchy airspace opacities and reticular markings ,concerning for multifocal pneumonia. Electronically signed by: Johann Wong MD 04/29/2024 10:04 AM EDT
--- NOTE | ~2024-04-18 | CT_ITS ---
EXAMINATION: CT CHEST WITH CONTRAST CLINICAL INFORMATION: Shortness of breath, pneumonia COMPARISON: CT chest 11/13/2023 TECHNIQUE: Multidetector volumetric CT imaging of the chest was obtained after the administration of 65 mL of Omnipaque 350 intravenous contrast without immediate adverse reactions. Axial MIP volume rendering provided. Sagittal and coronal reformatted images were obtained. This CT examination was performed using dose optimization techniques as appropriate, variously including the following: *Automated exposure control *Adjustment of mA and/or kV according to patient size (this includes techniques or standardized protocols for targeted exams where dose is matched to indication/reason for exam; i.e. extremities or head) *Use of iterative reconstruction technique DLP: 295 mGy-cm FINDINGS: LUNGS: Central airways patent. New patchy peribronchovascular and subpleural groundglass involving all lobes, with areas of gómez-lobular sparing. Suggestion of subpleural reticulation in the posterior/lateral right mid lung. PLEURA: More confluent area of pleural consolidation in the superior segment left lower lobe (series 4, image 231) MEDIASTINUM: The heart is normal in size. Mild aortic arch calcific atherosclerosis. No pericardial effusion. No mediastinal lymphadenopathy. No hilar lymphadenopathy. CORONARY ARTERY CALCIFICATION: Mild multivessel coronary artery calcifications present. CHEST WALL/AXILLA: No axillary lymphadenopathy. UPPER ABDOMEN: Diffuse hepatic steatosis. Status post cholecystectomy. Visualized upper abdomen otherwise unremarkable. OSSEOUS STRUCTURES: Redemonstrated diffuse idiopathic skeletal hyperostosis of the thoracic spine. No acute osseous abnormality identified. CT/CT chest w IV con IMPRESSION: 1. Patchy peribronchovascular and subpleural groundglass involving all lobes, with areas of gómez-lobular sparing, suggestive of atypical/viral pneumonia, organizing pneumonia, or NSIP. 2. Suggestion of subpleural reticulation in the posterior/lateral right mid lung, may represent early fibrotic changes. 3. Diffuse hepatic steatosis. Electronically signed by: Chavez Wilkins MD 04/18/2024 03:16 PM EDT
--- NOTE | ~2024-04-18 | XR_ITS ---
EXAMINATION: XR CHEST CLINICAL INFORMATION: Shortness of breath, cough COMPARISON: Chest radiograph 04/14/2024 TECHNIQUE: 2 views of the chest were obtained. FINDINGS: Continued mild increase in patchy multifocal bilateral airspace opacities most pronounced in the left lower and right mid lung. Curvilinear, possibly cavitary opacity overlying the right midlung. No pleural effusion or pneumothorax. Cardiomediastinal silhouette is unchanged. XR/XR chest 2V IMPRESSION: 1. Continued mild increase in patchy multifocal bilateral airspace opacities, most pronounced in the left lower and right mid lung, suspicious for multifocal pneumonia. 2. Curvilinear opacity overlying the right midlung, may represent a developing cavitary lesion. Recommend further evaluation with chest CT. Electronically signed by: Chavez Wilkins MD 04/18/2024 12:09 PM EDT
--- NOTE | 2024-04-18 11:21 | ED_ITS ---
HPI - General Adult General Chief complaint: Dyspnea Stated complaint: PNA/+COVID X2W, SOB 94% PER EMS Time Seen by Provider: 04/18/24 11:20 Source: patient and EMS Mode of arrival: EMS Limitations: no limitations History of Present Illness ED Provider: Nichol Escalera PA-C HPI narrative: Patient is a 69 year old assigned male at with a history of lymphoma (s/p radiation), HTN, ILD, and recent diagnosis of COVID-19 pneumonia presenting to the emergency department today with increased shortness of breath / difficultly breathing. Patient states that he was seen on 04/14/2024 for pneumonia and started on 2 antibiotics. Patient states that his symptoms continue to worsen and he continues to have shortness of breath and weakness. Patient denies any dizziness, lightheadedness, abdominal pain, nausea, vomiting, chills, blurry vision, double vision, loss of vision, chest pain, back pain, night sweats, pain with urination, increased urinary frequency, increased urinary urgency, blood in his urine or stool, syncope or a near syncopal episode, recent trauma or falls, bowel incontinence, bladder incontinence, or any other complaints at this time. Relieving factors: none Exacerbating factors: none Associated symptoms: shortness of breath and weakness Treatments prior to arrival: other (Augmentin and Doxycycline) Related Data Home Medications ?Medication ?Instructions ?Recorded ?Confirmed Rituxan IV Q6M 04/18/24 prednisone 20 mg tablet 40 mg PO DAILY 04/18/24 04/18/24 Previous Rx's ?Medication ?Instructions ?Recorded amoxicillin 875 mg-potassium 1 tab PO BID #14 tabs 04/14/24 clavulanate 125 mg tablet doxycycline hyclate 100 mg capsule 100 mg PO BID #10 caps 04/14/24 Allergies Allergy/AdvReac Type Severity Reaction Status Date / Time morphine [MORPHINE] Allergy Intermediate HR DROPPED Verified 04/18/24 11:13 azithromycin AdvReac Intermediate Joint Pain Verified 04/18/24 11:13 clarithromycin [Prevpac] AdvReac Intermediate depression Verified 04/18/24 11:13 (after taking for a few days) - includes most PPI lansoprazole [Prevpac] AdvReac Intermediate depression Verified 04/18/24 11:13 (after taking for a few days) - includes most PPI ranitidine [Zantac] AdvReac Intermediate depression Verified 04/18/24 11:13 (after taking for a few months) Prilosec AdvReac Intermediate depression Uncoded 04/14/24 09:00 (after taking for a few days) - includes most PPI Review of Systems 2 Constitutional: Constitutional: Reports no additional constitutional complaints, Denies chills, Reports fever(s) and Denies night sweats Eyes: Eyes: Reports no additional eye complaints, Denies blurry vision, Denies change in vision, Denies diplopia, Denies eye discharge, Denies loss of vision and Denies eye pain ENT: Denies dizziness Cardiovascular: Cardiovascular: Reports no additional cardiovascular complaints, Denies chest pain, Denies lightheadedness, Denies Loss of Consciousness and Reports dyspnea Respiratory: Respiratory: Reports cough and Reports dyspnea Gastrointestinal: Gastrointestinal: Reports no additional gastrointestinal complaints, Denies abdominal pain, Denies melena, Denies hematochezia, Denies change in bowel habits and Denies change in stool character Genitourinary: Genitourinary: Reports no additional male genitourinary complaints, Denies hematuria, Denies oliguria, Denies difficulty urinating, Denies dysuria, Denies urinary frequency, Denies urinary hesitancy, Denies urinary incontinence and Denies urinary urgency Musculoskeletal: Musculoskeletal: Reports no additional musculoskeletal complaints, Denies numbness and Denies tingling Neurologic: Denies dizziness, Denies loss of vision, Denies numbness and Denies tingling Psychiatric: Psychiatric: Reports no additional psychiatric complaints Endocrine: Endocrine: Reports no additional endocrine complaints Hematologic/Lymphatic: Hematologic/Lymphatic: Reports no additional hematologic/lymphatic complaints Allergic/Immunologic: Allergic/Immunologic: Reports no additional allergic/immunologic complaints [facility] Past Medical History Attestation statement: The following information was validated with the patient. Source: old records reviewed and nursing notes reviewed Medical History Pleural effusion Rheumatoid arthritis ILD (interstitial lung disease) Right knee meniscal tear Abnormal biliary HIDA scan Kidney stones [place] of foot Bradycardia Left shoulder pain Normal colonoscopy (~08/2011) Lumbar spondylosis Impaired fasting glucose Dyslipidemia Benign essential hypertension History of gastric ulcer Gastritis Internal hemorrhoids Diverticulosis Benign prostatic hyperplasia Alopecia (capitis) totalis History of Lyme disease (~2009) History of hepatitis C Surgical History History of liver biopsy History of prostate surgery Status post left rotator cuff repair (~11/2020) History of esophagogastroduodenoscopy (EGD) (~06/2019) History of medial meniscus repair of left knee (~12/2016) Hx laparoscopic cholecystectomy (~10/2012) History of right inguinal hernia repair (~2011) History of surgery on right wrist Family History Family History Father Gastric cancer Prostate cancer Family/Other Pancreas cancer Brother Skin cancer Social History Social History Household Members: None Housing: House Are you a primary home care and home health aides teacher to a significant other at home: No Do you presently have visiting nurse or other home services: No Alcohol intake: never Patient Tobacco Use Status: Never used Tobacco Smoked in Last 30 Days: No e-Cigarette/Vaping Use: Never Used Second Hand Smoke Exposure: No Use of substances other than those prescribed or required for medical reasons: No Advance Directives: No Advance Directives Information Provided: No Do you have a plan to hurt others: No Plan service: Yes Current occupational status: retired Cognitive needs: No Hearing needs: No Vision needs: Yes Physical Exam ED Vital Signs: Vital Signs - 24 hr 04/18/24 11:11 04/18/24 15:20 04/18/24 15:52 Temperature 98.2 F 98.1 F 98.1 F Pulse Rate 72 64 76 Respiratory Rate 18 17 22 H Blood Pressure 130/83 118/79 Pulse Oximetry 93 96 88 L Oxygen Delivery Method Room Air Nasal Cannula Room Air Oxygen Flow Rate 2 BMI result Body Mass Index 27.5 Const General: cooperative, no acute distress, alert and awake Nutritional Appearance: well nourished Orientation/consciousness: patient oriented x3 Limitations: no limitations HENMT Head: Yes normal to inspection and Yes atraumatic Ears: hearing grossly normal bilaterally and external ears normal General nose exam: Normal external nose present, no nasal discharge noted and no epistaxis Face and sinus: Yes normal facial exam, No abrasion and No laceration Mouth: Normal oral and palatal mucosa present, no drooling and no muffled voice Eyes General: appearance normal, both eyes and all related structures Periorbital: periorbital findings normal Eyelids: Yes eyelids normal Conjunctivae: conjunctivae normal Pupils: Equal, round and reactive pupils present EOM: EOMs intact bilaterally Neck Neck: Yes normal visual inspection, Yes full ROM and Yes no lymphadenopathy Chest Chest palpation & inspection: normal inspection of the chest Resp Effort & Inspection: able to speak in complete sentences and labored Auscultation: rhonchi throughout GI Inspection: Yes normal to inspection Neuro General: patient oriented x3 and moves all extremities Cranial nerves: Yes Equal, round and reactive pupils present Cognition (Neuro): normal cognition Extrem General: Yes normal to inspection, Yes full ROM and Yes capillary refill normal Psych Appearance: grossly normal Mental Status: mental status grossly normal Affect: normal affect Attitude: cooperative Thought process: Normal thought process present Thought content: Normal thought content present Insight: Good insight present (Psych) Medications Administered Discontinued Medications Generic Name Dose Route Start Last Admin Trade Name Freq PRN Reason Stop Dose Admin Ceftriaxone Sodium 1 gm/ 50 mls @ 100 mls/hr 04/18/24 16:06 04/18/24 16:41 Sodium Chloride IV 04/18/24 16:35 Infused ONCE ONE Infusion Magnesium Sulfate/Dextrose 1 gm in 100 mls @ 100 mls/hr 04/18/24 16:29 04/18/24 16:41 Magnesium Sulfate/D5w IV 04/18/24 17:28 100 mls/hr ONCE ONE Administration Iohexol 100 ml 04/18/24 12:44 04/18/24 12:44 Iohexol 350 Mg/Ml 100 Ml Infus..Btl IV 04/18/24 12:45 65 ml ONCE ONE Administration Methylprednisolone Sodium Succinate 60 mg 04/18/24 16:06 04/18/24 16:13 Methylprednisolone Sod Succ 125 Mg/2 Ml Vial IVPUSH 04/18/24 16:07 60 mg ONCE ONE Administration Medical Decision Making Medical Decision Making MDM Narrative: Patient is a 69 year old assigned male at with a history of lymphoma (s/p radiation), HTN, ILD, and recent diagnosis of COVID-19 pneumonia presenting to the emergency department today with increased shortness of breath / difficultly breathing. Patient's physical exam was as noted in the physical exam portion of this note. Patient was hypoxic on room air at 88% and at 92% on 2 liters of oxygen. Patient's blood work showed an initially elevated lactic acid of 2.6 with a repeat of 1.3. Patient's urine showed no acute process. Patient's chest x-ray showed continued increase in multifocal bilateral airspace opacities with a possible developing cavitary lesion for which the radiologist recommended obtaining a chest CT. Chest CT showed patchy peribronchovascular and subpleural groundglass involving all lobes suggestion of PNA. I spoke to the hospitalist team who agreed to admission. Patient's clinical presentation is not consistent with sepsis (@1600). I explained my physical exam findings as well as all test results to the patient. I answered all questions asked by the patient. Patient verbalized agreement and understanding with this treatment plan and admission. Differential Diagnosis Differential Diagnoses: The differential diagnosis associated with the presentation includes PNA Hypoxia Admission/Observation Consideration of admission/observation: Escalation of care including admission/observation considered Patient admitted. Consult Healthcare Provider Management of the patient was discussed with: Hospitalist (agreed to admission as noted in the MDM Rationale portion of this note.) Lab Data [facility] Lab Attestation statement: I reviewed the patient's lab results. My interpretation of these results are in the MDM Rationale portion of this note. 04/18/24 11:35 04/18/24 11:35 Labs: Lab Results 04/18/24 04/18/24 04/18/24 Range/Units 11:35 11:37 11:41 WBC 6.6 (4.8-10.8) X10*3/uL RBC 5.22 (4.60-5.80) X10*6/uL Hgb 15.7 (14.0-18.0) g/dl Hct 45.1 (42.0-52.0) % MCV 86.4 (80.0-98.0) fL MCH 30.1 (27.0-33.0) pg MCHC 34.8 (31.0-36.0) g/dl RDW 13.0 (11.0-16.0) % Plt Count 168 (160-400) X10*3/uL MPV 10.2 (9.4-12.4) fL Immature Gran % (Auto) 0.6 H (0.0-0.4) % Neut % (Auto) 89.2 H (45-73) % Lymph % (Auto) 3.2 L (20-40) % Swain % (Auto) 6.8 (2-11) % Eos % (Auto) 0.0 (0-4) % Baso % (Auto) 0.2 (0-2) % Lymph # (Auto) 0.2 L (1.2-4.9) X10*3/uL Swain # (Auto) 0.5 (0.1-1.2) X10*3/uL Eos # (Auto) 0.0 (0.0-0.4) X10*3/uL Baso # (Auto) 0.0 (0.0-0.2) X10*3/uL Abs Immat Gran (auto) 0.04 H (0.00-0.03) X10*3/uL Absolute Neuts (auto) 5.9 (2.0-8.3) x10*3/uL Absolute Nucleated RBC 0.000 (0.0-0.012) X10*3/uL Nucleated RBC % (auto) 0.0 (0.0-0.2) /100WBC VBG pH 7.43 (7.32-7.43) VBG pCO2 31 mmHg VBG pO2 50 mmHg VBG HCO3 21 L (22-26) mmol/L VBG O2 Saturation 84.0 % VBG Base Excess -1.9 mmol/L Sodium 136 (135-145) mmol/L Potassium 4.2 (3.3-5.1) mmol/L Chloride 102 (96-108) mmol/L Carbon Dioxide 21 L (22-29) mmol/L Anion Gap 17 (12-20) BUN 14 (9-16) mg/dL Creatinine 1.04 (0.5-1.4) mg/dL Estim Creat Clear Calc 65.1 Estimated GFR > 60 Random Glucose 144 H (60-115) mg/dL Lactic Acid 2.6 H* (0.5-2.0) mmol/L Lactic Acid F/U @ 2Hr (0.5-2.0) mmol/L Calcium 9.3 D (8.4-10.2) mg/dL Magnesium 2.2 (1.6-2.6) mg/dL Total Bilirubin 0.5 (0.0-1.0) mg/dL AST 35 (5-37) U/L ALT 41 H (0-40) U/L Alkaline Phosphatase 43 (39-117) U/L Troponin I High Sens 7.0 (<3.5-35.0) ng/L Total Protein 7.2 (6.5-8.0) g/dL Albumin 3.9 (3.5-5.0) g/dL Urine Color Urine Appearance Urine pH (5.0-9.0) Ur Specific [place] (1.005-1.025) Urine Protein (Neg-Trace) mg/dL Urine Glucose (UA) (Negative) mg/dL Urine Ketones (Negative) mg/dL Urine Blood (Negative) Urine Nitrite (Negative) Ur Leukocyte Esterase (Negative) Urine RBC (0-2) /HPF Urine WBC (0-5) /HPF Ur Squamous Epith Cells (0-2) /HPF Urine Bacteria (None Seen) Hyaline Casts (0-2) /LPF 04/18/24 04/18/24 Range/Units 14:12 16:01 WBC (4.8-10.8) X10*3/uL RBC (4.60-5.80) X10*6/uL Hgb (14.0-18.0) g/dl Hct (42.0-52.0) % MCV (80.0-98.0) fL MCH (27.0-33.0) pg MCHC (31.0-36.0) g/dl RDW (11.0-16.0) % Plt Count (160-400) X10*3/uL MPV (9.4-12.4) fL Immature Gran % (Auto) (0.0-0.4) % Neut % (Auto) (45-73) % Lymph % (Auto) (20-40) % Swain % (Auto) (2-11) % Eos % (Auto) (0-4) % Baso % (Auto) (0-2) % Lymph # (Auto) (1.2-4.9) X10*3/uL [place] # (Auto) (0.1-1.2) X10*3/uL Eos # (Auto) (0.0-0.4) X10*3/uL Baso # (Auto) (0.0-0.2) X10*3/uL Abs Immat Gran (auto) (0.00-0.03) X10*3/uL Absolute Neuts (auto) (2.0-8.3) x10*3/uL Absolute Nucleated RBC (0.0-0.012) X10*3/uL Nucleated RBC % (auto) (0.0-0.2) /100WBC VBG pH (7.32-7.43) VBG pCO2 mmHg VBG pO2 mmHg VBG HCO3 (22-26) mmol/L VBG O2 Saturation % VBG Base Excess mmol/L Sodium (135-145) mmol/L Potassium (3.3-5.1) mmol/L Chloride (96-108) mmol/L Carbon Dioxide (22-29) mmol/L Anion Gap (12-20) BUN (9-16) mg/dL Creatinine (0.5-1.4) mg/dL Estim Creat Clear Calc Estimated GFR Random Glucose (60-115) mg/dL Lactic Acid (0.5-2.0) mmol/L Lactic Acid F/U @ 2Hr 1.3 (0.5-2.0) mmol/L Calcium (8.4-10.2) mg/dL Magnesium (1.6-2.6) mg/dL Total Bilirubin (0.0-1.0) mg/dL AST (5-37) U/L ALT (0-40) U/L Alkaline Phosphatase (39-117) U/L Troponin I High Sens (<3.5-35.0) ng/L Total Protein (6.5-8.0) g/dL Albumin (3.5-5.0) g/dL Urine Color Yellow Urine Appearance Clear Urine pH 5.5 (5.0-9.0) Ur Specific [place] >= 1.030 H (1.005-1.025) Urine Protein 30 (1+) H (Neg-Trace) mg/dL Urine Glucose (UA) Negative (Negative) mg/dL Urine Ketones Negative (Negative) mg/dL Urine Blood Negative (Negative) Urine Nitrite Negative (Negative) Ur Leukocyte Esterase Negative (Negative) Urine RBC 0-2 (0-2) /HPF Urine WBC 0-5 (0-5) /HPF Ur Squamous Epith Cells 0-2 (0-2) /HPF Urine Bacteria None Seen (None Seen) Hyaline Casts 0-2 (0-2) /LPF Independent Interpretation I performed an independent interpretation of an: EKG, Plain X-Ray and CT Scan Interpretation: My interpretation is in agreement with the radiologist's impression of these imaging studies. - EXAMINATION: XR CHEST CLINICAL INFORMATION: Shortness of breath, cough COMPARISON: Chest radiograph 04/14/2024 TECHNIQUE: 2 views of the chest were obtained. FINDINGS: Continued mild increase in patchy multifocal bilateral airspace opacities most pronounced in the left lower and right mid lung. Curvilinear, possibly cavitary opacity overlying the right midlung. No pleural effusion or pneumothorax. Cardiomediastinal silhouette is unchanged. XR/XR chest 2V IMPRESSION: 1. Continued mild increase in patchy multifocal bilateral airspace opacities, most pronounced in the left lower and right mid lung, suspicious for multifocal pneumonia. 2. Curvilinear opacity overlying the right midlung, may represent a developing cavitary lesion. Recommend further evaluation with chest CT. Electronically signed by: Chavez Wilkins MD 04/18/2024 12:09 PM EDT Dictated By: Chavez Wilkins MD Signed By: Electronically signed by Chavez Wilkins MD 04/18/24 1209 - EXAMINATION: CT CHEST WITH CONTRAST CLINICAL INFORMATION: Shortness of breath, pneumonia COMPARISON: CT chest 11/13/2023 TECHNIQUE: Multidetector volumetric CT imaging of the chest was obtained after the administration of 65 mL of Omnipaque 350 intravenous contrast without immediate adverse reactions. Axial MIP volume rendering provided. Sagittal and coronal reformatted images were obtained. This CT examination was performed using dose optimization techniques as appropriate, variously including the following: *Automated exposure control *Adjustment of mA and/or kV according to patient size (this includes techniques or standardized protocols for targeted exams where dose is matched to indication/reason for exam; i.e. extremities or head) *Use of iterative reconstruction technique DLP: 295 mGy-cm FINDINGS: LUNGS: Central airways patent. New patchy peribronchovascular and subpleural groundglass involving all lobes, with areas of gómez-lobular sparing. Suggestion of subpleural reticulation in the posterior/lateral right mid lung. PLEURA: More confluent area of pleural consolidation in the superior segment left lower lobe (series 4, image 231) MEDIASTINUM: The heart is normal in size. Mild aortic arch calcific atherosclerosis. No pericardial effusion. No mediastinal lymphadenopathy. No hilar lymphadenopathy. CORONARY ARTERY CALCIFICATION: Mild multivessel coronary artery calcifications present. CHEST WALL/AXILLA: No axillary lymphadenopathy. UPPER ABDOMEN: Diffuse hepatic steatosis. Status post cholecystectomy. Visualized upper abdomen otherwise unremarkable. OSSEOUS STRUCTURES: Redemonstrated diffuse idiopathic skeletal hyperostosis of the thoracic spine. No acute osseous abnormality identified. CT/CT chest w IV con IMPRESSION: 1. Patchy peribronchovascular and subpleural groundglass involving all lobes, with areas of gómez-lobular sparing, suggestive of atypical/viral pneumonia, organizing pneumonia, or NSIP. 2. Suggestion of subpleural reticulation in the posterior/lateral right mid lung, may represent early fibrotic changes. 3. Diffuse hepatic steatosis. Electronically signed by: Chavez Wilkins MD 04/18/2024 03:16 PM EDT Dictated By: Chavez Wilkins MD Signed By: Electronically signed by Chavez Wilkins MD 04/18/24 1516 - Radiology Impression Discussion of test interpretation with radiology: I have reviewed the radiologist's reading. Independent Historian Clinical information obtained from an independent historian. History obtained from or confirmed by: EMS (EMS provided additional history and confirmed the history provided by the patient.) External Record Review External record reviewed: Inpatient record Discharge Plan Discharge Clinical Impression: Pneumonia, Hypoxia Patient Disposition: Admitted As Inpatient Prescriptions: No Action amoxicillin-pot clavulanate 875-125 mg tablet 1 tab PO BID Qty: 14 0RF Rx Instructions: END DATE: 04/20/24 doxycycline hyclate 100 mg capsule 100 mg PO BID Qty: 10 0RF Rx Instructions: END DATE: 04/18/24 prednisone 20 mg tablet 40 mg PO DAILY Rituxan IV Q6M Print Language: Occitan
[2024-04-18 11:41] LABS: MANUAL DIFF FLAG NO
[2024-04-18 11:44] LABS: Basophils Percent Auto 0.2 % (0-2); Hematocrit 45.1 % (42.0-52.0); Hemoglobin 15.7 g/dl (14.0-18.0); Imm Gran Abs Auto 0.04 X10*3/uL (0.00-0.03); Imm Gran Pct Auto 0.6 % (0.0-0.4); Lymphocytes Absolute Auto 0.2 X10*3/uL (1.2-4.9); Lymphocytes Percent Auto 3.2 % (20-40); Mean Corpuscular HGB Conc 34.8 g/dl (31.0-36.0); Mean Corpuscular Hemoglobin 30.1 pg (27.0-33.0); Mean Corpuscular Volume 86.4 fL (80.0-98.0); Mean Platelet Volume 10.2 fL (9.4-12.4); Monocytes Absolute Auto 0.5 X10*3/uL (0.1-1.2); Monocytes Percent Auto 6.8 % (2-11); Neutrophils Absolute Auto 5.9 x10*3/uL (2.0-8.3); Neutrophils Percent Auto 89.2 % (45-73); Platelet Count 168 X10*3/uL (160-400); Red Blood Count 5.22 X10*6/uL (4.60-5.80); White Blood Count 6.6 X10*3/uL (4.8-10.8)
[2024-04-18 11:45] LABS: Venous Blood Gas Refer to POC result
[2024-04-18 11:45] LABS: VBG Base Excess -1.9 mmol/L; VBG HCO3 21 mmol/L (22-26); VBG pCO2 31 mmHg; VBG pH 7.43 (7.32-7.43); VBG pO2 50 mmHg
[2024-04-18 11:58] LABS: Alanine Aminotransferase 41 U/L (0-40); Albumin Level 3.9 g/dL (3.5-5.0); Alkaline Phosphatase 43 U/L (39-117); Anion Gap 17 (12-20); Aspartate Amino Transferase 35 U/L (5-37); Bilirubin Total 0.5 mg/dL (0.0-1.0); Blood Urea Nitrogen 14 mg/dL (9-16); Calcium 9.3 mg/dL (8.4-10.2); Carbon Dioxide 21 mmol/L (22-29); Chloride 102 mmol/L (96-108); Creatinine Clr Calc Pharmacy 65.1; Estimated Glomerular Filt Rate > 60; Glucose Random 144 mg/dL (60-115); Magnesium 2.2 mg/dL (1.6-2.6); Potassium 4.2 mmol/L (3.3-5.1); Sodium 136 mmol/L (135-145); Total Protein 7.2 g/dL (6.5-8.0)
[2024-04-18 12:02] LABS: Lactic Acid 2.6 mmol/L (0.5-2.0)
[2024-04-18] MEDS: iohexoL 350 MG/ML 100 ML INFUS..BTL IV (12:44)
[2024-04-18 13:39] LABS: Reflex Lactate? Lactic Acid Added
[2024-04-18 14:27] LABS: ~Lactic Acid-LAB USE ONLY 1.3 mmol/L (0.5-2.0)
--- NOTE | 2024-04-18 15:57 | PC.NURSE ---
Attempted to get patient OOB for walking O2 sat. Patient swaying upon standing, endorsing dizziness, sating 88% on RA, does not wear O2 at home. Provider made aware.
[2024-04-18 16:09] LABS: Appearance Urine Clear; Color Urine Yellow; Glucose Urine UA Negative (Negative); Leukocyte Esterase Urine Negative (Negative); Nitrite Urine Negative (Negative); PH 5.5 (5.0-9.0); Specific Gravity - Urine >= 1.030 (1.005-1.025); UMIC TRIGGER UACC YES; Urine Blood Negative (Negative); Urine Ketones Negative (Negative); Urine Protein 30 (1+) mg/dL (Neg-Trace)
[2024-04-18] MEDS: cefTRIAXone sodium 1 GM in 0.9 % Sodium Chloride 50 ML IV (16:13)
[2024-04-18] MEDS: methylPREDNISolone Sod Succ 125 MG/2 ML VIAL 60 MG IVPUSH (16:13)
[2024-04-18 16:14] LABS: Bacteria Urine None Seen (None Seen); Hyaline Casts Urine 0-2 /LPF (0-2); RBC Urine 0-2 /HPF (0-2); Squamous Epithelial Cell Urine 0-2 /HPF (0-2); WBC Urine 0-5 /HPF (0-5)
[2024-04-18] MEDS: Magnesium Sulfate/D5W 1 GM/100 ML PIGGYBACK IV (16:41)
--- NOTE | 2024-04-18 16:46 | PC.NURSE ---
Confirmed with provider no BC needed. Patient taking long time to recover from standing, sating 92% at best on 3.5L, Oxymask applied, provider made aware, ED bronch protocol placed.
--- NOTE | 2024-04-18 16:58 | PM.IMHP ---
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 Patient reports he was 1st diagnosed with COVID approximately 2 weeks ago on 04/06. Was experiencing fever, chills, SOB, TURCIOS, weakness, and productive cough. Symptoms persisted so patient presented to the ED on 04/14 and was started amoxicillin and doxycycline for COVID pneumonia. Patient reports was compliant with medications, but continued to get worse. States has been essentially bed-bound for the past 10 days. Also experiencing nausea, vomiting, reduced p.o. intake, and waxing and waning fever that begins at night and dissipates during the day. Of note, patient reports had last rituximab infusion around 3 weeks ago which ?hit me pretty hard . In the ED pt was tachypneic up to 22 and hypoxic as low as 88% on RA. Labs were significant for lactic acid of 2.6 with repeat 1.3, otherwise grossly unremarkable and baseline for patient. No leukocytosis. Stable H&H. No significant electrolyte abnormalities. Renal and hepatic function WNL. CXR showed continued mild increase in patchy multifocal bilateral airspace opacities suspicious for multifocal pneumonia, as well as suspicion for developing cavitary lesion in right mid lung. CT of chest found diffuse peribronchovascular and subpleural ground-glass involving all lobes suggestive of atypical/viral pneumonia. EKG demonstrated sinus bradycardia of 55 without ischemic changes. Pt was treated with Solu-Medrol, Mag sulfate, and ceftriaxone. Pt will be admitted to the hospital for treatment and further evaluation of acute hypoxic respiratory failure in the setting of viral pneumonitis secondary to recent COVID infection in an immunocompromised patient with ILD. Review of Systems Review of Systems: SOB, TURCIOS Generalized weakness Productive cough Fever, chills Nausea, vomiting Reduced p.o. intake Denies chest pain/pressure, palpitations No diarrhea, abdominal pain PMFSH Medical History Pleural effusion Rheumatoid arthritis ILD (interstitial lung disease) Right knee meniscal tear Abnormal biliary HIDA scan Kidney stones [place] of foot Bradycardia Left shoulder pain Normal colonoscopy (~08/2011) Lumbar spondylosis Impaired fasting glucose Dyslipidemia Benign essential hypertension History of gastric ulcer Gastritis Internal hemorrhoids Diverticulosis Benign prostatic hyperplasia Alopecia (capitis) totalis History of Lyme disease (~2009) History of hepatitis C Family History Father Gastric cancer Prostate cancer Family/Other Pancreas cancer Brother Skin cancer Surgical History History of liver biopsy History of prostate surgery Status post left rotator cuff repair (~11/2020) History of esophagogastroduodenoscopy (EGD) (~06/2019) History of medial meniscus repair of left knee (~12/2016) Hx laparoscopic cholecystectomy (~10/2012) History of right inguinal hernia repair (~2011) History of surgery on right wrist Social History Household Members: None Housing: House Are you a primary reservoir caretaker to a significant other at home: No Do you presently have visiting nurse or other home services: No Alcohol intake: never Patient Tobacco Use Status: Never used Tobacco Smoked in Last 30 Days: No e-Cigarette/Vaping Use: Never Used Second Hand Smoke Exposure: No Use of substances other than those prescribed or required for medical reasons: No Advance Directives: No Advance Directives Information Provided: No Do you have a plan to hurt others: No Plan Nutrition Risks: No Nutritional Risk service: Yes Current occupational status: retired Cognitive needs: No Hearing needs: No Vision needs: Yes Meds Allergies Allergy/AdvReac Type Severity Reaction Status Date / Time morphine [MORPHINE] Allergy Intermediate HR DROPPED Verified 04/18/24 11:13 azithromycin AdvReac Intermediate Joint Pain Verified 04/18/24 11:13 clarithromycin [Prevpac] AdvReac Intermediate depression Verified 04/18/24 11:13 (after taking for a few days) - includes most PPI lansoprazole [Prevpac] AdvReac Intermediate depression Verified 04/18/24 11:13 (after taking for a few days) - includes most PPI ranitidine [Zantac] AdvReac Intermediate depression Verified 04/18/24 11:13 (after taking for a few months) Prilosec AdvReac Intermediate depression Uncoded 04/14/24 09:00 (after taking for a few days) - includes most PPI Active Medications: Current Medications Magnesium Sulfate/Dextrose (Magnesium Sulfate/D5w) 1 gm in 100 mls @ 100 mls/hr IV ONCE ONE Stop: 04/18/24 17:28 Last Admin: 04/18/24 16:41 Dose: 100 mls/hr Home Medications ?Medication ?Instructions ?Recorded ?Confirmed ?Last Taken ?Type Rituxan IV Q6M 04/18/24 8 Months Ago History ~08/18/23 prednisone 20 mg tablet 40 mg PO DAILY 04/18/24 04/18/24 04/18/24 09:00 History Physical Exam Vital Signs and Narrative: Vital Signs: Last Vital Signs Temp 98.1 F 04/18/24 15:52 Pulse 76 04/18/24 15:52 Resp 22 H 04/18/24 15:52 BP 118/79 04/18/24 15:20 Pulse Ox 88 L 04/18/24 15:52 O2 Del Method Room Air 04/18/24 15:52 O2 Flow Rate 2 04/18/24 15:20 BMI result Body Mass Index 27.5 Constitutional: Alert, appears weak. In no acute distress. Mental Status: Oriented to person, place and time. Eyes: Pupils are equal, round, and reactive to light. Ear, Nose, and Throat: Oropharynx clear, mucous membranes moist. Ears and nose without deformities. Trachea midline. Respiratory: Diffuse coarse breath sounds bilaterally Cardiovascular: S1, S2 regular. No murmurs, rubs, or gallops. Gastrointestinal: Abdomen soft, non-tender, non-distended. Normal bowel sounds. Neurologic: Cranial nerves II-XII are grossly intact bilaterally. No focal neurological deficits. Moves all extremities spontaneously. Skin: Warm, dry. Extremities: No edema. Psychiatric: Normal mood and affect. Results Labs 04/18/24 11:35 04/18/24 11:35 Labs: Laboratory Results - last 24 hr 04/18/24 04/18/24 04/18/24 11:35 11:37 11:41 MCV 86.4 MCH 30.1 MCHC 34.8 RDW 13.0 Plt Count 168 MPV 10.2 Immature Gran % (Auto) 0.6 H Neut % (Auto) 89.2 H Lymph % (Auto) 3.2 L [place] % (Auto) 6.8 Eos % (Auto) 0.0 Baso % (Auto) 0.2 Lymph # (Auto) 0.2 L [place] # (Auto) 0.5 Eos # (Auto) 0.0 Baso # (Auto) 0.0 Abs Immat Gran (auto) 0.04 H Absolute Neuts (auto) 5.9 Absolute Nucleated RBC 0.000 Nucleated RBC % (auto) 0.0 VBG pH 7.43 VBG pCO2 31 VBG pO2 50 VBG HCO3 21 L VBG O2 Saturation 84.0 VBG Base Excess -1.9 Anion Gap 17 Estim Creat Clear Calc 65.1 Estimated GFR > 60 Random Glucose 144 H Lactic Acid 2.6 H* Lactic Acid F/U @ 2Hr Calcium 9.3 D Magnesium 2.2 Total Bilirubin 0.5 AST 35 ALT 41 H Alkaline Phosphatase 43 Troponin I High Sens 7.0 Total Protein 7.2 Albumin 3.9 Urine Color Urine Appearance Urine pH Ur Specific [place] Urine Protein Urine Glucose (UA) Urine Ketones Urine Blood Urine Nitrite Ur Leukocyte Esterase Urine RBC Urine WBC Ur Squamous Epith Cells Urine Bacteria Hyaline Casts 04/18/24 04/18/24 14:12 16:01 MCV MCH MCHC RDW Plt Count MPV Immature Gran % (Auto) Neut % (Auto) Lymph % (Auto) [place] % (Auto) Eos % (Auto) Baso % (Auto) Lymph # (Auto) [place] # (Auto) Eos # (Auto) Baso # (Auto) Abs Immat Gran (auto) Absolute Neuts (auto) Absolute Nucleated RBC Nucleated RBC % (auto) VBG pH VBG pCO2 VBG pO2 VBG HCO3 VBG O2 Saturation VBG Base Excess Anion Gap Estim Creat Clear Calc Estimated GFR Random Glucose Lactic Acid Lactic Acid F/U @ 2Hr 1.3 Calcium Magnesium Total Bilirubin AST ALT Alkaline Phosphatase Troponin I High Sens Total Protein Albumin Urine Color Yellow Urine Appearance Clear Urine pH 5.5 Ur Specific [place] >= 1.030 H Urine Protein 30 (1+) H Urine Glucose (UA) Negative Urine Ketones Negative Urine Blood Negative Urine Nitrite Negative Ur Leukocyte Esterase Negative Urine RBC 0-2 Urine WBC 0-5 Ur Squamous Epith Cells 0-2 Urine Bacteria None Seen Hyaline Casts 0-2 Imaging Radiologist's Impressions: Impressions Chest X-Ray 04/18/24 11:21 IMPRESSION: 1. Continued mild increase in patchy multifocal bilateral airspace opacities, most pronounced in the left lower and right mid lung, suspicious for multifocal pneumonia. 2. Curvilinear opacity overlying the right midlung, may represent a developing cavitary lesion. Recommend further evaluation with chest CT. Electronically signed by: Chavez Wilkins MD 04/18/2024 12:09 PM EDT RP Chest CT 04/18/24 12:49 IMPRESSION: 1. Patchy peribronchovascular and subpleural groundglass involving all lobes, with areas of gómez-lobular sparing, suggestive of atypical/viral pneumonia, organizing pneumonia, or NSIP. 2. Suggestion of subpleural reticulation in the posterior/lateral right mid lung, may represent early fibrotic changes. 3. Diffuse hepatic steatosis. 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 Pt will be admitted to the hospital for treatment and further evaluation of acute hypoxic respiratory failure in the setting of viral pneumonitis secondary to recent COVID infection in an immunocompromised patient with ILD. Acute hypoxic respiratory failure in the setting of viral pneumonitis secondary to recent COVID infection in an immunocompromised patient with ILD Patient desatting into the 80s on RA, not on home oxygen Patient with increasing SOB, cough, weakness x10+ days CT of chest showing diffuse peribronchovascular and subpleural ground-glass involving all lobes, likely atypical/viral pneumonia Patient does not meet sepsis criteria: No fever, tachycardia, or leukocytosis Will empirically cover with IV doxycycline, started 04/18/2024 (started p.o. on 04/14/2024) Will treat with Solu-Medrol, DuoNebs, guaifenesin Zinc, vitamin-C supplements Titrate supplemental O2>92, wean as tolerated Lactic acidosis, resolved Initial lactic acid 2.6 with repeat 1.3 after IVF Secondary to hypoxia, not sepsis RA with ILD Hold prednisone Treat as above Continue Rituxan outpatient Full Code Attending:?Dr. Wise DVT Prophylaxis: Lovenox Pt will require a hospitalization of at least two nights for treatment of?acute hypoxic respiratory failure in the setting of viral pneumonitis secondary to recent COVID infection in an immunocompromised patient with ILD that will require IV steroids, breathing treatments, and supplemental oxygen. Quality Stroke Does the patient have a stroke diagnosis?: No VTE Prior VTE?: No VTE Risk Level:: Medical - moderate - high VTE Device Contraindication: Treatment Not Indicated VTE Drug Contraindication: N/A - Med Ordered
--- NOTE | 2024-04-18 17:18 | PHA.MEDREC ---
Addendum entered by Charlene Amor RP 04/18/24 17:25: reviewed by [facility]. Original Note: Pharmacy Consult ? Medication Reconciliation Pharmacy has completed the medication reconciliation. Pt states has been taking prednisone 40 mg daily and was supposed to taper, but has had trouble getting in contact with the rheumotologist for tapering instructions. Also on short term antibiotics, augmentin and doxycycline. Pt also reports rituximab every 6 months and is overdue for the next infusion because it was delayed to his illness.
--- NOTE | 2024-04-18 17:42 | ECG_ITS ---
Test Reason : SOB Blood Pressure : / mmHG Vent. Rate : 055 BPM Atrial Rate : 055 BPM P-R Int : 186 ms QRS Dur : 074 ms QT Int : 420 ms P-R-T Axes : 032 -02 017 degrees QTc Int : 401 ms Sinus bradycardia Minimal voltage criteria for LVH, may be normal variant ( R in aVL ) Borderline ECG When compared with ECG of 19-DEC-2016 13:33, No significant change was found Referred By: Nichol Escalera Electronically Signed By:JENNIFER COLÓN
[2024-04-18] MEDS: Doxycycline Hyclate 100 MG in 0.9 % Sodium Chloride 250 ML 166.67 MG IV (18:56)
[2024-04-18] MEDS: Albuterol/Iprat 2.5/0.5MG 3 ML AMPUL.NEB INHALE (20:14)
--- NOTE | 2024-04-18 23:14 | PC.NURSE ---
Care assumed of pt at this time. Pt resting quietly with eyes closed and even respirations. Tele monitor in place HR 50 BPM sinus. other VS stable.
[2024-04-19] VITALS (10 sets, daily range): BP systolic 116–157; BP diastolic 67–75; PULSE 50–64; RESP 15–20; TEMP 36.3–37.2; O2SAT 92–98
[2024-04-19] MEDS: 0.9 % Sodium Chloride Flush 3 ML SYRINGE IVFLUSH ×3 (01:10→16:57)
[2024-04-19 05:00] LABS: Hematocrit 43.1 % (42.0-52.0); Hemoglobin 14.7 g/dl (14.0-18.0); Mean Corpuscular HGB Conc 34.1 g/dl (31.0-36.0); Mean Corpuscular Hemoglobin 30.2 pg (27.0-33.0); Mean Corpuscular Volume 88.7 fL (80.0-98.0); Mean Platelet Volume 9.8 fL (9.4-12.4); Platelet Count 159 X10*3/uL (160-400); Red Blood Count 4.86 X10*6/uL (4.60-5.80); Red Cell Distribution Width 12.9 % (11.0-16.0); White Blood Count 5.8 X10*3/uL (4.8-10.8)
[2024-04-19 05:17] LABS: Anion Gap 15 (12-20); Blood Urea Nitrogen 16 mg/dL (9-16); Calcium 9.3 mg/dL (8.4-10.2); Carbon Dioxide 21 mmol/L (22-29); Chloride 106 mmol/L (96-108); Creatinine Clr Calc Pharmacy 78.7; Estimated Glomerular Filt Rate > 60; Glucose Random 171 mg/dL (60-115); Potassium 4.2 mmol/L (3.3-5.1); Sodium 138 mmol/L (135-145)
[2024-04-19] MEDS: methylPREDNISolone Sod Succ 40 MG/ML VIAL IVPUSH ×2 (06:37→18:18)
[2024-04-19] MEDS: Doxycycline Hyclate 100 MG in 0.9 % Sodium Chloride 250 ML 166.67 MG IV ×2 (06:41→19:30)
[2024-04-19] MEDS: Albuterol/Iprat 2.5/0.5MG 3 ML AMPUL.NEB INHALE ×4 (07:18→19:30)
[2024-04-19 08:41] LABS: COVID-19 Test Positive (Negative); IDNOW Serial# 08D9AD1C
--- NOTE | 2024-04-19 09:07 | PC.NURSE ---
Alert and oriented, denies pain or discomfort. COVID test returned positive, unable to be transferred to 3rd floor at this time
--- NOTE | 2024-04-19 14:41 | HO.PM.IMPN ---
Subjective Subjective Date of Service: 04/19/24 Interval History: Being followed for hypoxia due to COVID and underlying history of cryptogenic organizing pneumonia/I LD. Feeling better this morning, less shortness of breath, no fevers, no chills tolerating diet with no nausea vomiting or abdominal pain, feels energetic after eating breakfast, oxygenation stable on 2 L 90-93%. No acute events overnight. Review of Systems All other system reviewed and are negative. Physical Exam Vital Signs: Vital Signs: Last Vital Signs Temp 98 F 04/19/24 10:56 Pulse 50 04/19/24 11:14 Resp 18 04/19/24 11:14 BP 119/67 04/19/24 10:56 Pulse Ox 98 04/19/24 10:56 O2 Del Method Room Air 04/19/24 10:56 O2 Flow Rate 3 04/18/24 22:07 BMI result Body Mass Index 27.5 Const: Other: General awake alert x3, in no acute distress. Anicteric sclera Neck no JVD. CVS regular rate rhythm, Respiratory lungs coarse breath sounds, no use of accessory muscles Gastrointestinal abdomen soft, non tender, bowel sounds audible Extremities no edema. Neuro non focal Skin no rash Psych appropriate affect Objective Data Active Medications Acetaminophen (Acetaminophen 325 Mg Tablet) 650 mg PO Q6H PRN PRN Reason: Pain, Mild (Pain Scale 1-3), fever or headache Albuterol/Ipratropium (Albuterol/Iprat 2.5/0.5mg 3 Ml Ampul.Neb) 3 ml INHALE RQ4H WHILE AWAKE ON LICENSE OF [facility] Last Admin: 04/19/24 11:12 Dose: 3 ml Documented By: JOEL Calcium Carbonate (Calcium Carbonate 750 Mg Tab.Chew) 750 mg PO Q4H PRN PRN Reason: Heartburn Doxycycline Hyclate 100 mg/ (Sodium Chloride) 250 mls @ 166.67 mls/hr IV Q12H ON LICENSE OF [facility] Last Infusion: 04/19/24 08:18 Dose: Infused Documented By: MISTI Magnesium Hydroxide (Milk Of Magnesia 30 Ml Oral.Susp) 30 ml PO DAILY PRN PRN Reason: Constipation Melatonin (Melatonin 3 Mg Tablet) 6 mg PO BEDTIME PRN PRN Reason: Insomnia Methylprednisolone Sodium Succinate (Methylprednisolone Sod Succ 40 Mg/Ml Vial) 40 mg IVPUSH Q12H ON LICENSE OF [facility] Last Admin: 04/19/24 06:37 Dose: 40 mg Documented By: BETTIE Ondansetron HCl (Ondansetron Hcl 4 Mg/2 Ml Vial) 4 mg IVPUSH Q8H PRN PRN Reason: Nausea and Vomiting Sodium Chloride (0.9 % Sodium Chloride Flush 3 Ml Syringe) 3 ml IVFLUSH QSHIFT ON LICENSE OF [facility] Last Admin: 04/19/24 08:56 Dose: 3 ml Documented By: DARLIN Labs 04/19/24 04:53 04/19/24 04:53 Labs: Laboratory Results - last 24 hr 04/18/24 04/19/24 04/19/24 16:01 04:53 08:30 MCV 88.7 MCH 30.2 MCHC 34.1 RDW 12.9 Plt Count 159 L MPV 9.8 Absolute Nucleated RBC 0.000 Nucleated RBC % (auto) 0.0 Anion Gap 15 Estim Creat Clear Calc 78.7 Estimated GFR > 60 Random Glucose 171 H Calcium 9.3 Urine Color Yellow Urine Appearance Clear Urine pH 5.5 Ur Specific [place] >= 1.030 H Urine Protein 30 (1+) H Urine Glucose (UA) Negative Urine Ketones Negative Urine Blood Negative Urine Nitrite Negative Ur Leukocyte Esterase Negative Urine RBC 0-2 Urine WBC 0-5 Ur Squamous Epith Cells 0-2 Urine Bacteria None Seen Hyaline Casts 0-2 COVID-19 ([facility]) Positive A COVID-19 Clin Com See Note Assessment and Plan (1) Viral pneumonitis: Status: Acute (2) Hypoxia: Status: Acute Plan 69-year-old male with a PMH significant for 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 Pt will be admitted to the hospital for treatment and further evaluation of acute hypoxic respiratory failure in the setting of viral pneumonitis secondary to recent COVID infection in an immunocompromised patient with ILD. Acute hypoxic respiratory failure in the setting of viral pneumonitis secondary to recent COVID infection in an immunocompromised patient on chronic steroids/status post Rituxan/ sero neg. RA, history of MALT lymphoma of stomach/history of cryptogenic organizing pneumonia/ILD likely due to RA On admission finger oximetry in 80% on room air , not on home oxygen, normal WBC, no fevers Shortness of breath improved, O2 92% on [address] of chest showing diffuse peribronchovascular and subpleural ground-glass involving all lobes, likely atypical/viral pneumonia Continue IV doxycycline, started 04/18/2024 (started p.o. on 04/14/2024) as outpatient cont iv Solu-Medrol, DuoNebs, guaifenesin, Zinc, vitamin-C supplements wean O2 as tolerated PT eval Lactic acidosis, resolved Initial lactic acid 2.6 with repeat 1.3 after IVF Secondary to hypoxia, not sepsis RA with ILD Hold home prednisone, on IV steroid as above Continue Rituxan outpatient as per rheumatology Full Code DVT Prophylaxis: Lovenox Pt will require continued inpatient hospitalization for treatment of?acute hypoxic respiratory failure in the setting of viral pneumonitis secondary to recent COVID infection in an immunocompromised patient with ILD that will require IV steroids, breathing treatments, and supplemental oxygen, treatment can not be provided in less acute setting. Quality Stroke Does the patient have a stroke diagnosis?: No VTE Prior VTE?: No VTE Risk Level:: Medical - moderate - high VTE Device Contraindication: Treatment Not Indicated VTE Drug Contraindication: N/A - Med Ordered
[2024-04-20] VITALS (9 sets, daily range): BP systolic 127–146; BP diastolic 60–78; PULSE 53–98; RESP 17–20; TEMP 36.2–37.1; O2SAT 86–93; BMI 27.1
[2024-04-20] MEDS: Doxycycline Hyclate 100 MG in 0.9 % Sodium Chloride 250 ML 166.67 MG IV ×2 (06:07→18:30)
[2024-04-20] MEDS: methylPREDNISolone Sod Succ 40 MG/ML VIAL IVPUSH (06:07)
[2024-04-20] MEDS: 0.9 % Sodium Chloride Flush 3 ML SYRINGE IVFLUSH ×2 (07:54→16:36)
[2024-04-20] MEDS: Albuterol/Iprat 2.5/0.5MG 3 ML AMPUL.NEB INHALE ×4 (07:57→19:56)
[2024-04-20 09:00] LABS: C Reactive Protein 2.91 mg/dL (< or = 0.50)
[2024-04-20 09:18] LABS: Procalcitonin 0.02 ng/mL
--- NOTE | 2024-04-20 11:27 | HO.PM.IMPN ---
Subjective Subjective Date of Service: 04/20/24 Interval History: dyspnea improved, still on 2L O2 mild cough no fever Review of Systems Review of Systems: Yes all other systems are reviewed and are negative Physical Exam Vital Signs: Vital Signs: Last Vital Signs Temp 98.8 F 04/20/24 07:23 Pulse 62 04/20/24 08:01 Resp 18 04/20/24 08:01 BP 135/78 04/20/24 07:23 Pulse Ox 92 04/20/24 07:23 O2 Del Method Nasal Cannula 04/20/24 07:23 O2 Flow Rate 2 04/20/24 07:23 BMI result Body Mass Index 27.1 Gen: in no acute distress HEENT: sclera anicteric, moist mucus membranes Neck: supple Lungs: scattered inspiratory crackles Heart: regular rate and rhythm, no murmurs Abd: soft, non-tender, non-distended Ext: no edema Skin: warm/well-perfused Neuro: alert and oriented x3, no focal findings Psych: appropriate affect Objective Data Active Medications Acetaminophen (Acetaminophen 325 Mg Tablet) 650 mg PO Q6H PRN PRN Reason: Pain, Mild (Pain Scale 1-3), fever or headache Albuterol/Ipratropium (Albuterol/Iprat 2.5/0.5mg 3 Ml Ampul.Neb) 3 ml INHALE RQ4H WHILE AWAKE [facility] Last Admin: 04/20/24 07:57 Dose: 3 ml Documented By: MANJIT Calcium Carbonate (Calcium Carbonate 750 Mg Tab.Chew) 750 mg PO Q4H PRN PRN Reason: Heartburn Doxycycline Hyclate 100 mg/ (Sodium Chloride) 250 mls @ 166.67 mls/hr IV Q12H [facility] Last Infusion: 04/20/24 07:54 Dose: Infused Documented By: CEE Magnesium Hydroxide (Milk Of Magnesia 30 Ml Oral.Susp) 30 ml PO DAILY PRN PRN Reason: Constipation Melatonin (Melatonin 3 Mg Tablet) 6 mg PO BEDTIME PRN PRN Reason: Insomnia Methylprednisolone Sodium Succinate (Methylprednisolone Sod Succ 40 Mg/Ml Vial) 40 mg IVPUSH Q12H [facility] Stop: 04/20/24 18:00 Last Admin: 04/20/24 06:07 Dose: 40 mg Documented By: LULI Methylprednisolone Sodium Succinate (Methylprednisolone Sod Succ 40 Mg/Ml Vial) 30 mg IVPUSH Q12H [facility] Ondansetron HCl (Ondansetron Hcl 4 Mg/2 Ml Vial) 4 mg IVPUSH Q8H PRN PRN Reason: Nausea and Vomiting Sodium Chloride (0.9 % Sodium Chloride Flush 3 Ml Syringe) 3 ml IVFLUSH QSHIFT [facility] Last Admin: 04/20/24 07:54 Dose: 3 ml Documented By: CEE Labs 04/19/24 04:53 04/19/24 04:53 Labs: Laboratory Results - last 24 hr 04/20/24 08:21 C-Reactive Protein 2.91 H Procalcitonin 0.02 Assessment and Plan (1) Viral pneumonitis: Status: Acute (2) Hypoxia: Status: Acute Plan d3 69yo M with hx gastric MALT lymphoma s/p radiation in 2021, seronegative PA, cryptogenic organizing PNA, and ILD presenting with dyspnea, cough, and weakness; admitted for AHRF due to Covid-19 pneumonitis [SaO2 80% on RA on admission, CT with diffuse peribronchovascular + subpleural ground-glass opacities] AHRF due to Covid-19 pneumonitis - wean O2 as tolerated, continue doxycycline [PO 04/14-, IV 04/18-], start to taper methylprednisolone, continue standing/prn nebs acute lactic acidosis - resolved; was due to hypoxia, not sepsis 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 Quality Stroke Does the patient have a stroke diagnosis?: No VTE Prior VTE?: No VTE Risk Level:: Medical - moderate - high VTE Device Contraindication: Treatment Not Indicated VTE Drug Contraindication: N/A - Med Ordered
--- NOTE | 2024-04-20 13:37 | MHC.CM.PN ---
IMM 04/20/24, PT W/PNA/COVID19, STOMACH CA, CM MET W/PT WHO REPORTS HIS MOTHER AND SISTER LIVE W/HIM, PT IS INDEP AT BASELINE, NO DME OR HOME SERVICES, ANTIC PT MAY NEED VNA AND REF TO BE PLACED, NO PREFERENCES. PCP VERIFIED AND PT WILL COMPLETE A NEW HCP IF CM UNABLE TO LOCATE PT BELIEVES HE DID ONE HERE AT [facility] [place], CM TO FOLLOW UP W/PT IN AM. PER RESPIRATORY PT WILL NEED 4L O2 NC W/ACTIVITY
[2024-04-20] MEDS: Acetaminophen 325 MG TABLET 650 MG PO (16:16)
[2024-04-20] MEDS: methylPREDNISolone Sod Succ 40 MG/ML VIAL 30 MG IVPUSH (16:18)
[2024-04-21] VITALS (8 sets, daily range): BP systolic 133–157; BP diastolic 66–83; PULSE 56–84; RESP 18–20; TEMP 36.5–36.9; O2SAT 91–94
[2024-04-21] MEDS: 0.9 % Sodium Chloride Flush 3 ML SYRINGE IVFLUSH ×2 (00:46→17:24)
--- NOTE | 2024-04-21 04:48 | PC.NURSE ---
Assumed care of patient at 23:30. Pt continues on airborne/contact precautions for covid, also has viral pna. Pt on RA on assuming care. No tele or continuous spo2 orders, discussed and confirmed with MD. On morning vitals patient had a brief dry coughing episode and was noted to be desatting to 88%. Pt denied sob and breathing was even and unlabored once cough resolved spontaneously, though spo2 remained 88%. Of note, pt also has a hx of ILD. The pt was placed on nc per oxygen protocol with +effect, spo2 91-92%. Covering Dr. Stallings notified, requested to clarify spo2 goal, confirmed goal 90% and above per protocol. Please see shift assessment, task, and MAR for full details.
[2024-04-21] MEDS: methylPREDNISolone Sod Succ 40 MG/ML VIAL 30 MG IVPUSH (06:38)
[2024-04-21] MEDS: Doxycycline Hyclate 100 MG in 0.9 % Sodium Chloride 250 ML 166.67 MG IV (06:39)
--- NOTE | 2024-04-21 08:12 | MHC.CM.PN ---
EMR REVIEWED, CM MET W/PT WHO REPORTS HE IS NOT FEELING WELL AND HAD A DIFFICULT NIGHT, PT DID COMPLETE A NEW HCP NAMING HIS MOTHER KACY HIS [facility] AND SISTER ANNAMARIE HIS ALTERNATE, PER PT BOTH LIVE W/HIM AND USE THE SAME PHONE NUMBER [phone], COPY UPLOADED TO [employer] AND PLACED IN CHART, PT AGREEABLE TO HOME PT/SN AND REF PLACED TO [facility] W/PT PERMISSION., CM WILL CONT TO FOLLOW DC NEEDS.
[2024-04-21] MEDS: Albuterol/Iprat 2.5/0.5MG 3 ML AMPUL.NEB INHALE ×4 (08:13→19:34)
[2024-04-21] MEDS: Acetaminophen 325 MG TABLET 650 MG PO (09:00)
[2024-04-21] MEDS: Enoxaparin Sodium 40 MG/0.4 ML SYRINGE SUBCUT (13:12)
--- NOTE | 2024-04-21 14:00 | P.PNIM_ITS ---
Subjective Subjective Date of Service: 04/21/24 Interval History: feels worsening weakness/malaise cough with dyspnea, qualifies for 4L O2 with ambulation Review of Systems Review of Systems: Yes all other systems are reviewed and are negative Physical Exam 2 Vital Signs: Vital Signs: Last Vital Signs Temp 98.2 F 04/21/24 07:41 Pulse 67 04/21/24 11:45 Resp 20 04/21/24 11:45 BP 142/83 H 04/21/24 07:41 Pulse Ox 92 04/21/24 07:41 O2 Del Method Nasal Cannula 04/21/24 07:41 O2 Flow Rate 2 04/21/24 07:41 BMI result Body Mass Index 27.1 Gen: in no acute distress HEENT: sclera anicteric, moist mucus membranes Neck: supple Lungs: scattered inspiratory crackles Heart: regular rate and rhythm, no murmurs Abd: soft, non-tender, non-distended Ext: no edema Skin: warm/well-perfused Neuro: alert and oriented x3, no focal findings Psych: appropriate affect Objective Data Active Medications Acetaminophen (Acetaminophen 325 Mg Tablet) 650 mg PO Q6H PRN PRN Reason: Pain, Mild (Pain Scale 1-3), fever or headache Last Admin: 04/21/24 09:00 Dose: 650 mg Documented By: JS Albuterol Sulfate (Albuterol Sulfate (0.083%) 2.5 Mg/3 Ml Vial.Neb) 2.5 mg INHALE Q2H PRN PRN Reason: Shortness of Breath/Wheezing Albuterol/Ipratropium (Albuterol/Iprat 2.5/0.5mg 3 Ml Ampul.Neb) 3 ml INHALE RQ4H WHILE AWAKE [facility] Last Admin: 04/21/24 11:44 Dose: 3 ml Documented By: KENNETH Calcium Carbonate (Calcium Carbonate 750 Mg Tab.Chew) 750 mg PO Q4H PRN PRN Reason: Heartburn Enoxaparin Sodium (Enoxaparin Sodium 40 Mg/0.4 Ml Syringe) 40 mg SUBCUT Q24H [facility] Last Admin: 04/21/24 13:12 Dose: 40 mg Documented By: JS Magnesium Hydroxide (Milk Of Magnesia 30 Ml Oral.Susp) 30 ml PO DAILY PRN PRN Reason: Constipation Melatonin (Melatonin 3 Mg Tablet) 6 mg PO BEDTIME PRN PRN Reason: Insomnia Methylprednisolone Sodium Succinate (Methylprednisolone Sod Succ 40 Mg/Ml Vial) 30 mg IVPUSH Q12H [facility] Last Admin: 04/21/24 06:38 Dose: 30 mg Documented By: MILY Ondansetron HCl (Ondansetron Hcl 4 Mg/2 Ml Vial) 4 mg IVPUSH Q8H PRN PRN Reason: Nausea and Vomiting Sodium Chloride (0.9 % Sodium Chloride Flush 3 Ml Syringe) 3 ml IVFLUSH QSHIFT [facility] Last Admin: 04/21/24 08:36 Dose: Not Given Documented By: JS Non-Admin Reason: IV Running Labs 04/19/24 04:53 04/19/24 04:53 Assessment and Plan (1) Viral pneumonitis: Status: Acute (2) Hypoxia: Status: Acute Plan d4 69yo M with hx gastric MALT lymphoma s/p radiation in 2021, seronegative PA, cryptogenic organizing PNA, and ILD presenting with dyspnea, cough, and weakness; admitted for AHRF due to Covid-19 pneumonitis [SaO2 80% on RA on admission, CT with diffuse peribronchovascular + subpleural ground-glass opacities] AHRF due to Covid-19 pneumonitis - wean O2 as tolerated, stop doxycycline [PO 04/14-04/17, IV 04/18-04/20], increase methylprednisolone to 60 mg q12h, continue standing/prn nebs - will need home O2, re-eval prior to discharge acute lactic acidosis - resolved; was due to hypoxia, not sepsis 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 Quality Stroke Does the patient have a stroke diagnosis?: No VTE Prior VTE?: No VTE Risk Level:: Medical - moderate - high VTE Device Contraindication: Treatment Not Indicated VTE Drug Contraindication: N/A - Med Ordered
[2024-04-21] MEDS: methylPREDNISolone Sod Succ 40 MG/ML VIAL 60 MG IVPUSH (17:24)
[2024-04-22] VITALS (7 sets, daily range): BP systolic 122–142; BP diastolic 72–75; PULSE 63–76; RESP 18–22; TEMP 36.4–36.5; O2SAT 89–95
[2024-04-22] MEDS: 0.9 % Sodium Chloride Flush 3 ML SYRINGE IVFLUSH ×4 (01:18→17:14)
[2024-04-22] MEDS: methylPREDNISolone Sod Succ 40 MG/ML VIAL 60 MG IVPUSH ×2 (05:54→17:14)
[2024-04-22 06:59] LABS: Hematocrit 41.3 % (42.0-52.0); Hemoglobin 14.4 g/dl (14.0-18.0); Mean Corpuscular HGB Conc 34.9 g/dl (31.0-36.0); Mean Corpuscular Hemoglobin 30.4 pg (27.0-33.0); Mean Corpuscular Volume 87.1 fL (80.0-98.0); Mean Platelet Volume 9.8 fL (9.4-12.4); Platelet Count 203 X10*3/uL (160-400); Red Blood Count 4.74 X10*6/uL (4.60-5.80); White Blood Count 11.1 X10*3/uL (4.8-10.8)
[2024-04-22 07:20] LABS: Blood Urea Nitrogen 13 mg/dL (9-16); C Reactive Protein 7.46 mg/dL (< or = 0.50); Carbon Dioxide 23 mmol/L (22-29); Chloride 104 mmol/L (96-108); Creatinine Clr Calc Pharmacy 91.5; Estimated Glomerular Filt Rate > 60; Glucose Random 117 mg/dL (60-115); Potassium 4.2 mmol/L (3.3-5.1); Sodium 135 mmol/L (135-145)
[2024-04-22 07:37] LABS: Anion Gap 12 (12-20)
[2024-04-22 07:48] LABS: Procalcitonin 0.03 ng/mL
[2024-04-22] MEDS: Albuterol/Iprat 2.5/0.5MG 3 ML AMPUL.NEB INHALE ×3 (08:13→15:13)
--- NOTE | 2024-04-22 09:18 | HO.PM.IMPN ---
Subjective Subjective Date of Service: 04/22/24 Interval History: very short of breath though hypoxia has improved coughing no sputum Review of Systems Review of Systems: Yes all other systems are reviewed and are negative Physical Exam Vital Signs: Vital Signs: Last Vital Signs Temp 97.7 F 04/22/24 07:41 Pulse 67 04/22/24 08:14 Resp 18 04/22/24 08:14 BP 141/73 H 04/22/24 07:41 Pulse Ox 91 L 04/22/24 07:41 O2 Del Method Oxymask 04/22/24 07:41 O2 Flow Rate 3 04/22/24 07:41 BMI result Body Mass Index 27.1 Gen: in no acute distress HEENT: sclera anicteric, moist mucus membranes Neck: supple Lungs: scattered inspiratory crackles, diminished air entry overall Heart: regular rate and rhythm, no murmurs Abd: soft, non-tender, non-distended Ext: no edema Skin: warm/well-perfused Neuro: alert and oriented x3, no focal findings Psych: appropriate affect Objective Data Active Medications Acetaminophen (Acetaminophen 325 Mg Tablet) 650 mg PO Q6H PRN PRN Reason: Pain, Mild (Pain Scale 1-3), fever or headache Last Admin: 04/21/24 09:00 Dose: 650 mg Documented By: JS Albuterol Sulfate (Albuterol Sulfate (0.083%) 2.5 Mg/3 Ml Vial.Neb) 2.5 mg INHALE Q2H PRN PRN Reason: Shortness of Breath/Wheezing Albuterol/Ipratropium (Albuterol/Iprat 2.5/0.5mg 3 Ml Ampul.Neb) 3 ml INHALE RQ4H WHILE AWAKE [facility] Last Admin: 04/22/24 08:13 Dose: 3 ml Documented By: FRANCOISE Calcium Carbonate (Calcium Carbonate 750 Mg Tab.Chew) 750 mg PO Q4H PRN PRN Reason: Heartburn Enoxaparin Sodium (Enoxaparin Sodium 40 Mg/0.4 Ml Syringe) 40 mg SUBCUT Q24H [facility] Last Admin: 04/21/24 13:12 Dose: 40 mg Documented By: JS Magnesium Hydroxide (Milk Of Magnesia 30 Ml Oral.Susp) 30 ml PO DAILY PRN PRN Reason: Constipation Melatonin (Melatonin 3 Mg Tablet) 6 mg PO BEDTIME PRN PRN Reason: Insomnia Methylprednisolone Sodium Succinate (Methylprednisolone Sod Succ 40 Mg/Ml Vial) 60 mg IVPUSH Q12H [facility] Last Admin: 04/22/24 05:54 Dose: 60 mg Documented By: DAYAMI Ondansetron HCl (Ondansetron Hcl 4 Mg/2 Ml Vial) 4 mg IVPUSH Q8H PRN PRN Reason: Nausea and Vomiting Sodium Chloride (0.9 % Sodium Chloride Flush 3 Ml Syringe) 3 ml IVFLUSH QSHIFT [facility] Last Admin: 04/22/24 01:18 Dose: 3 ml Documented By: DAYAMI Labs 04/22/24 06:34 04/22/24 06:34 Labs: Laboratory Results - last 24 hr 04/22/24 06:34 MCV 87.1 MCH 30.4 MCHC 34.9 RDW 13.0 Plt Count 203 D MPV 9.8 Absolute Nucleated RBC 0.000 Nucleated RBC % (auto) 0.0 Anion Gap 12 Estim Creat Clear Calc 91.5 Estimated GFR > 60 Random Glucose 117 H Calcium 9.0 C-Reactive Protein 7.46 H Procalcitonin 0.03 Assessment and Plan (1) Viral pneumonitis: Status: Acute (2) Hypoxia: Status: Acute Plan d5 69yo M with hx gastric MALT lymphoma s/p radiation in 2021, seronegative PA, cryptogenic organizing PNA, and ILD presenting with dyspnea, cough, and weakness; admitted for AHRF due to Covid-19 pneumonitis [SaO2 80% on RA on admission, CT with diffuse peribronchovascular + subpleural ground-glass opacities] AHRF due to Covid-19 pneumonitis - wean O2 as tolerated, stopped doxycycline [PO 04/14-04/17, IV 04/18-04/20], increased methylprednisolone to 60 mg q12h, continue standing/prn nebs - will check CTA to r/o PE - will need home O2, re-eval prior to discharge acute lactic acidosis - resolved; was due to hypoxia, not sepsis 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 Quality Stroke Does the patient have a stroke diagnosis?: No VTE Prior VTE?: No VTE Risk Level:: Medical - moderate - high VTE Device Contraindication: Treatment Not Indicated VTE Drug Contraindication: N/A - Med Ordered
[2024-04-22] MEDS: iohexoL 350 MG/ML 100 ML INFUS..BTL IV (13:08)
[2024-04-22] MEDS: Enoxaparin Sodium 40 MG/0.4 ML SYRINGE SUBCUT (15:50)
[2024-04-23] VITALS (9 sets, daily range): BP systolic 132–147; BP diastolic 75–80; PULSE 55–88; RESP 14–20; TEMP 36.3–36.7; O2SAT 92–96
[2024-04-23] MEDS: methylPREDNISolone Sod Succ 40 MG/ML VIAL 60 MG IVPUSH (05:20)
[2024-04-23] MEDS: Albuterol/Iprat 2.5/0.5MG 3 ML AMPUL.NEB INHALE ×4 (07:43→18:43)
[2024-04-23 08:00] LABS: Hematocrit 43.4 % (42.0-52.0); Hemoglobin 14.9 g/dl (14.0-18.0); Mean Corpuscular HGB Conc 34.3 g/dl (31.0-36.0); Mean Corpuscular Hemoglobin 29.7 pg (27.0-33.0); Mean Corpuscular Volume 86.5 fL (80.0-98.0); Mean Platelet Volume 9.5 fL (9.4-12.4); Platelet Count 244 X10*3/uL (160-400); Red Blood Count 5.02 X10*6/uL (4.60-5.80); Red Cell Distribution Width 12.8 % (11.0-16.0); White Blood Count 16.5 X10*3/uL (4.8-10.8)
[2024-04-23 08:13] LABS: B Type Natriuretic Peptide 51 pg/mL (<100)
[2024-04-23] MEDS: 0.9 % Sodium Chloride Flush 3 ML SYRINGE IVFLUSH ×3 (09:35→20:49)
[2024-04-23] MEDS: methylPREDNISolone Sod Succ 40 MG/ML VIAL IVPUSH ×2 (09:35→20:49)
--- NOTE | 2024-04-23 11:04 | MHC.CM.PN ---
EMR reviewed and per MD rounds, pt is not medically cleared for discharge due to management of hypoxia in the setting of covid-19 infection. Anticipating pt will discharge home tomorrow with [facility].
--- NOTE | 2024-04-23 11:10 | HO.PM.IMPN ---
Subjective Subjective Date of Service: 04/23/24 Interval History: dyspnea slightly improved no fever Review of Systems Review of Systems: Yes all other systems are reviewed and are negative Physical Exam Vital Signs: Vital Signs: Last Vital Signs Temp 97.9 F 04/23/24 07:18 Pulse 72 04/23/24 07:46 Resp 18 04/23/24 07:46 BP 135/75 04/23/24 07:18 Pulse Ox 92 04/23/24 07:18 O2 Del Method Oxymask 04/23/24 07:18 O2 Flow Rate 4 04/23/24 07:18 BMI result Body Mass Index 27.1 Gen: in no acute distress HEENT: sclera anicteric, moist mucus membranes Neck: supple Lungs: dry inspiratory crackles at R base, diminished air entry overall Heart: regular rate and rhythm, no murmurs Abd: soft, non-tender, non-distended Ext: no edema Skin: warm/well-perfused Neuro: alert and oriented x3, no focal findings Psych: appropriate affect Objective Data Active Medications Acetaminophen (Acetaminophen 325 Mg Tablet) 650 mg PO Q6H PRN PRN Reason: Pain, Mild (Pain Scale 1-3), fever or headache Last Admin: 04/21/24 09:00 Dose: 650 mg Documented By: JS Albuterol Sulfate (Albuterol Sulfate (0.083%) 2.5 Mg/3 Ml Vial.Neb) 2.5 mg INHALE Q2H PRN PRN Reason: Shortness of Breath/Wheezing Albuterol/Ipratropium (Albuterol/Iprat 2.5/0.5mg 3 Ml Ampul.Neb) 3 ml INHALE RQ4H WHILE AWAKE [facility] Last Admin: 04/23/24 07:43 Dose: 3 ml Documented By: APRIL Calcium Carbonate (Calcium Carbonate 750 Mg Tab.Chew) 750 mg PO Q4H PRN PRN Reason: Heartburn Enoxaparin Sodium (Enoxaparin Sodium 40 Mg/0.4 Ml Syringe) 40 mg SUBCUT Q24H [facility] Last Admin: 04/22/24 15:50 Dose: 40 mg Documented By: LORRAINE Magnesium Hydroxide (Milk Of Magnesia 30 Ml Oral.Susp) 30 ml PO DAILY PRN PRN Reason: Constipation Melatonin (Melatonin 3 Mg Tablet) 6 mg PO BEDTIME PRN PRN Reason: Insomnia Methylprednisolone Sodium Succinate (Methylprednisolone Sod Succ 40 Mg/Ml Vial) 40 mg IVPUSH Q12H [facility] Last Admin: 04/23/24 09:35 Dose: 40 mg Documented By: LORRAINE Ondansetron HCl (Ondansetron Hcl 4 Mg/2 Ml Vial) 4 mg IVPUSH Q8H PRN PRN Reason: Nausea and Vomiting Sodium Chloride (0.9 % Sodium Chloride Flush 3 Ml Syringe) 3 ml IVFLUSH QSHIFT [facility] Last Admin: 04/23/24 09:35 Dose: 3 ml Documented By: LORRAINE Labs 04/23/24 07:42 04/22/24 06:34 Labs: Laboratory Results - last 24 hr 04/23/24 07:42 MCV 86.5 MCH 29.7 MCHC 34.3 RDW 12.8 Plt Count 244 MPV 9.5 Absolute Nucleated RBC 0.000 Nucleated RBC % (auto) 0.0 B-Natriuretic Peptide 51 Impressions Chest CTA 04/22/24 12:13 IMPRESSION: 1. No evidence of pulmonary emboli. 2. Multifocal groundglass infiltrates with coarsened reticular markings at the lung bases and scattered areas of focal consolidation. Findings appear similar to 04/18/2024, but minimally worse. 3. Hepatic steatosis. VTE: negative. Fleischner guidelines were followed. Electronically signed by: Kody Goss MD 04/22/2024 03:38 PM EDT RP Assessment and Plan (1) Viral pneumonitis: Status: Acute (2) Hypoxia: Status: Acute Plan d6 69yo M with hx gastric MALT lymphoma s/p radiation in 2021, seronegative PA, cryptogenic organizing PNA, and ILD presenting with dyspnea, cough, and weakness; admitted for AHRF due to Covid-19 pneumonitis [SaO2 80% on RA on admission, CT with diffuse peribronchovascular + subpleural ground-glass opacities] AHRF due to Covid-19 pneumonitis - wean O2 as tolerated, stopped doxycycline [PO 04/14-04/17, IV 04/18-04/20], will decrease methylprednisolone from 60 to 40 mg q12h, continue standing/prn nebs - no PE on CTA - will need home O2, re-eval prior to discharge acute lactic acidosis - resolved; was due to hypoxia, not sepsis 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 Quality Stroke Does the patient have a stroke diagnosis?: No VTE Prior VTE?: No VTE Risk Level:: Medical - moderate - high VTE Device Contraindication: Treatment Not Indicated VTE Drug Contraindication: N/A - Med Ordered
[2024-04-23] MEDS: Enoxaparin Sodium 40 MG/0.4 ML SYRINGE SUBCUT (11:48)
--- NOTE | 2024-04-23 16:19 | P.CONPL_ITS ---
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 Patient treated with systemic glucocorticoids and nebulized bronchodilators with slow improvement. He continues to complain of significant fatigue and dyspnea. Review of Systems 2 Constitutional: Constitutional: Denies daytime sleepiness, Denies excessive sweating, Reports fatigue, Denies fever(s), Reports lethargy, Reports malaise, Denies night sweats, Denies snoring and Denies weight loss Eyes: Eyes: Denies blurry vision and Denies itchy eyes ENT: Denies nasal congestion, Denies post nasal drip, Denies sinus pain, Denies sinus pressure and Denies other ( Thrush) Cardiovascular: Cardiovascular: Denies chest pain, Denies pedal edema, Reports dyspnea, Reports dyspnea on exertion, Denies orthopnea and Denies paroxysmal nocturnal dyspnea Respiratory: Respiratory: Reports cough, Denies hemoptysis, Reports excessive phlegm production, Reports dyspnea, Reports dyspnea on exertion, Denies snoring and Denies wheezing Gastrointestinal: Gastrointestinal: Denies abdominal pain and Denies heartburn Musculoskeletal: Musculoskeletal: Denies myalgias, Denies arthralgias and Denies joint swelling Integumentary/Breasts: Skin/Breast: Denies rash Neurologic: Denies memory loss and Denies seizure-like activity Psychiatric: Psychiatric: Denies abnormal sleep pattern, Denies anxiety and Denies memory loss Endocrine: Endocrine: Denies excessive sweating, Reports fatigue and Denies heat intolerance Hematologic/Lymphatic: Hematologic/Lymphatic: Denies easy bruising Allergic/Immunologic: Allergic/Immunologic: Denies itchy eyes, Denies seasonal rhinorrhea and Denies wheezing PMFSH Past Medical History Medical History Pleural effusion Rheumatoid arthritis ILD (interstitial lung disease) Right knee meniscal tear Abnormal biliary HIDA scan Kidney stones Hostetter of foot Bradycardia Left shoulder pain Normal colonoscopy (~08/2011) Lumbar spondylosis Impaired fasting glucose Dyslipidemia Benign essential hypertension History of gastric ulcer Gastritis Internal hemorrhoids Diverticulosis Benign prostatic hyperplasia Alopecia (capitis) totalis History of Lyme disease (~2009) History of hepatitis C Family History Family History Father Gastric cancer Prostate cancer Family/Other Pancreas cancer Brother Skin cancer Surgical History Surgical History History of liver biopsy History of prostate surgery Status post left rotator cuff repair (~11/2020) History of esophagogastroduodenoscopy (EGD) (~06/2019) History of medial meniscus repair of left knee (~12/2016) Hx laparoscopic cholecystectomy (~10/2012) History of right inguinal hernia repair (~2011) History of surgery on right wrist Social History Social History Household Members: Other Household Members Other:: mother Housing: House Are you a primary direct care supervisor to a significant other at home: No Do you presently have visiting nurse or other home services: No Alcohol intake: never Patient Tobacco Use Status: Never used Tobacco Smoked in Last 30 Days: No e-Cigarette/Vaping Use: Never Used Second Hand Smoke Exposure: No Use of substances other than those prescribed or required for medical reasons: No Currently Displaying Signs/Symptoms of Drug Intoxication Withdrawal: No Have you been hit, kicked, punched, or otherwise hurt by someone within the past year? If so, by whom?: No Do you feel safe in your current relationship?: No Current Relationship Is there a partner from a previous relationship who is making you feel unsafe now?: No Are you made to feel afraid or neglected: No Advance Directives: No Advance Directives Information Provided: No Do you have a plan to hurt others: No Plan Recently lost weight without trying: No How much weight loss: Not applicable Eating poorly because of decreased appetite: No Nutrition screen score: 0 Nutrition Risks: No Nutritional Risk service: Yes Current occupational status: retired Cognitive needs: No Hearing needs: No Vision needs: Yes Meds Allergies Allergy/AdvReac Type Severity Reaction Status Date / Time morphine [MORPHINE] Allergy Intermediate HR DROPPED Verified 04/18/24 11:13 azithromycin AdvReac Intermediate Joint Pain Verified 04/18/24 11:13 clarithromycin [Prevpac] AdvReac Intermediate depression Verified 04/18/24 11:13 (after taking for a few days) - includes most PPI lansoprazole [Prevpac] AdvReac Intermediate depression Verified 04/18/24 11:13 (after taking for a few days) - includes most PPI ranitidine [Zantac] AdvReac Intermediate depression Verified 04/18/24 11:13 (after taking for a few months) Prilosec AdvReac Intermediate depression Uncoded 04/14/24 09:00 (after taking for a few days) - includes most PPI Active Medications: Current Medications Acetaminophen (Acetaminophen 325 Mg Tablet) 650 mg PO Q6H PRN PRN Reason: Pain, Mild (Pain Scale 1-3), fever or headache Last Admin: 04/21/24 09:00 Dose: 650 mg Albuterol Sulfate (Albuterol Sulfate (0.083%) 2.5 Mg/3 Ml Vial.Neb) 2.5 mg INHALE Q2H PRN PRN Reason: Shortness of Breath/Wheezing Albuterol/Ipratropium (Albuterol/Iprat 2.5/0.5mg 3 Ml Ampul.Neb) 3 ml INHALE RQ4H WHILE AWAKE [facility] Last Admin: 04/23/24 16:06 Dose: 3 ml Calcium Carbonate (Calcium Carbonate 750 Mg Tab.Chew) 750 mg PO Q4H PRN PRN Reason: Heartburn Enoxaparin Sodium (Enoxaparin Sodium 40 Mg/0.4 Ml Syringe) 40 mg SUBCUT Q24H [facility] Last Admin: 04/23/24 11:48 Dose: 40 mg Magnesium Hydroxide (Milk Of Magnesia 30 Ml Oral.Susp) 30 ml PO DAILY PRN PRN Reason: Constipation Melatonin (Melatonin 3 Mg Tablet) 6 mg PO BEDTIME PRN PRN Reason: Insomnia Methylprednisolone Sodium Succinate (Methylprednisolone Sod Succ 40 Mg/Ml Vial) 40 mg IVPUSH Q12H [facility] Last Admin: 04/23/24 09:35 Dose: 40 mg Ondansetron HCl (Ondansetron Hcl 4 Mg/2 Ml Vial) 4 mg IVPUSH Q8H PRN PRN Reason: Nausea and Vomiting Sodium Chloride (0.9 % Sodium Chloride Flush 3 Ml Syringe) 3 ml IVFLUSH QSHIFT [facility] Last Admin: 04/23/24 16:16 Dose: 3 ml Home Medications ?Medication ?Instructions ?Recorded ?Confirmed ?Last Taken ?Type Rituxan IV Q6M 04/18/24 8 Months Ago History ~08/18/23 prednisone 20 mg tablet 40 mg PO DAILY 04/18/24 04/18/24 04/18/24 09:00 History Physical Exam 2 Vital Signs: Vital Signs: Last Vital Signs Temp 97.4 F 04/23/24 15:25 Pulse 88 04/23/24 16:07 Resp 16 04/23/24 16:07 BP 134/80 04/23/24 15:25 Pulse Ox 92 04/23/24 15:25 O2 Del Method Oxymask 04/23/24 15:25 O2 Flow Rate 2 04/23/24 15:25 BMI result Body Mass Index 27.1 Const: General: no acute distress and alert Nutritional Appearance: not obese Orientation/consciousness: Other orientation findings ( oriented) HEENT: Head: Yes atraumatic Eyes: General: appearance normal, both eyes and all related structures S clerae: sclerae normal EOM: EOMs intact bilaterally Neck: Neck: Yes supple Lymphatic: no lymphadenopathy noted Resp: Effort & Inspection: normal respiratory effort and no use of accessory muscles Auscultation: rales (Bilateral) Cardio: Rate: regular rate Rhythm: regular rhythm Heart sounds: no gallops, no murmurs and no rubs Skin: General skin exam: other ( warm) Extrem: General: No clubbing, No cyanosis and No edema Results Laboratory Findings 04/23/24 07:42 04/22/24 06:34 Abnormal lab findings: Abnormal Labs 04/18/24 04/18/24 04/18/24 11:35 11:37 11:41 WBC Hct Plt Count Immature Gran % (Auto) 0.6 H Neut % (Auto) 89.2 H Lymph % (Auto) 3.2 L Lymph # (Auto) 0.2 L Abs Immat Gran (auto) 0.04 H VBG HCO3 21 L Carbon Dioxide 21 L Random Glucose 144 H Lactic Acid 2.6 H* ALT 41 H C-Reactive Protein Ur Specific Jermyn Urine Protein COVID-19 ([facility]) 04/18/24 04/19/24 04/19/24 16:01 04:53 08:30 WBC Hct Plt Count 159 L Immature Gran % (Auto) Neut % (Auto) Lymph % (Auto) Lymph # (Auto) Abs Immat Gran (auto) VBG HCO3 Carbon Dioxide 21 L Random Glucose 171 H Lactic Acid ALT C-Reactive Protein Ur Specific Jermyn >= 1.030 H Urine Protein 30 (1+) H COVID-19 ([facility]) Positive A 04/20/24 04/22/24 04/23/24 08:21 06:34 07:42 WBC 11.1 H 16.5 H Hct 41.3 L Plt Count Immature Gran % (Auto) Neut % (Auto) Lymph % (Auto) Lymph # (Auto) Abs Immat Gran (auto) VBG HCO3 Carbon Dioxide Random Glucose 117 H Lactic Acid ALT C-Reactive Protein 2.91 H 7.46 H Ur Specific Jermyn Urine Protein COVID-19 ([facility]) Assessment and Plan (1) Viral pneumonitis: Status: Acute (2) Hypoxia: Status: Acute (3) ILD (interstitial lung disease): Status: Acute (4) COVID-19: Status: Acute Plan Impression: 69-year-old gentleman with underlying RA associated ILD on rituximab admitted with acute hypoxic respiratory failure secondary to COVID-19, improving slowly. Recommendations: Agree with current therapeutic regimen of systemic glucocorticoids and nebulized bronchodilators, would consider adding doxycycline in this immunosuppressed patient for prophylaxis of possible secondary opportunistic pneumonias. Procedures Date of Service Date of Service: 04/23/24
[2024-04-24] VITALS (11 sets, daily range): BP systolic 118–134; BP diastolic 65–89; PULSE 55–87; RESP 14–24; TEMP 36.3–37.2; O2SAT 85–95
[2024-04-24 07:08] LABS: Hematocrit 39.2 % (42.0-52.0); Hemoglobin 13.7 g/dl (14.0-18.0); Mean Corpuscular HGB Conc 34.9 g/dl (31.0-36.0); Mean Corpuscular Volume 85.8 fL (80.0-98.0); Mean Platelet Volume 9.8 fL (9.4-12.4); Platelet Count 229 X10*3/uL (160-400); Red Blood Count 4.57 X10*6/uL (4.60-5.80); Red Cell Distribution Width 12.8 % (11.0-16.0); White Blood Count 13.8 X10*3/uL (4.8-10.8)
[2024-04-24 07:50] LABS: Anion Gap 13 (12-20); Blood Urea Nitrogen 19 mg/dL (9-16); C Reactive Protein 3.15 mg/dL (< or = 0.50); Calcium 8.9 mg/dL (8.4-10.2); Carbon Dioxide 24 mmol/L (22-29); Chloride 104 mmol/L (96-108); Creatinine Clr Calc Pharmacy 90.3; Estimated Glomerular Filt Rate > 60; Glucose Random 135 mg/dL (60-115); Potassium 4.3 mmol/L (3.3-5.1); Sodium 137 mmol/L (135-145)
[2024-04-24] MEDS: Albuterol/Iprat 2.5/0.5MG 3 ML AMPUL.NEB INHALE ×4 (07:56→19:01)
[2024-04-24 08:57] LABS: Procalcitonin 0.03 ng/mL
[2024-04-24] MEDS: Doxycycline Hyclate 100 MG in 0.9 % Sodium Chloride 250 ML 166.67 MG IV ×2 (10:43→20:49)
[2024-04-24] MEDS: methylPREDNISolone Sod Succ 40 MG/ML VIAL IVPUSH (10:44)
[2024-04-24] MEDS: 0.9 % Sodium Chloride Flush 3 ML SYRINGE IVFLUSH ×3 (10:45→20:50)
[2024-04-24] MEDS: Enoxaparin Sodium 40 MG/0.4 ML SYRINGE SUBCUT (12:40)
--- NOTE | 2024-04-24 13:17 | PC.NURSE ---
Pt reported to be 85% on 2L O2. O2 increased to 4L then to 6L per protocol, continuous sat monitor applied. Pt stood to use urinal and dipped to 83% but came back up to 88 with pursed lip breathing. Pt wanted to switch to N/C to eat lunch. Pt aware to eat slow, pause between bites to restore sats to 88% or above before next bite. Pt cooperative and demonstrates good safety awareness. At rest while eating lunch pt now 88-94% Dr. Castaneda aware of changes and situation. Pt instructed to call when done with lunch for reeval of O2.
--- NOTE | 2024-04-24 16:08 | HO.PM.IMPN ---
Subjective Subjective Date of Service: 04/24/24 Interval History: Episode of acute desaturation; patient ambulated 2 bathroom against staff advice. O2 titrated. .. Returning to baseline Review of Systems Denies chest pain Admits shortness of breath with minimal movement Denies nausea vomiting diarrhea Denies fever chills Physical Exam Vital Signs: Vital Signs: Last Vital Signs Temp 98.4 F 04/24/24 12:11 Pulse 85 04/24/24 15:13 Resp 24 H 04/24/24 15:13 BP 134/72 04/24/24 12:11 Pulse Ox 89 L 04/24/24 12:35 O2 Del Method Nasal Cannula 04/24/24 12:35 O2 Flow Rate 4 04/24/24 12:35 BMI result Body Mass Index 27.1 Const: Other: Awake alert; able to speak short sentences Resp: Other: Diminished at bases with diffuse end inspiratory crackles and scattered dense expiratory wheezes Cardio: Other: No S4; positive S1-S2; no S3 murmurs rubs or gallops GI: Other: Soft nontender nondistended normoactive bowel sounds Extrem: Other: No edema bilaterally Objective Data Active Medications Acetaminophen (Acetaminophen 325 Mg Tablet) 650 mg PO Q6H PRN PRN Reason: Pain, Mild (Pain Scale 1-3), fever or headache Last Admin: 04/21/24 09:00 Dose: 650 mg Documented By: JS Albuterol Sulfate (Albuterol Sulfate (0.083%) 2.5 Mg/3 Ml Vial.Neb) 2.5 mg INHALE Q2H PRN PRN Reason: Shortness of Breath/Wheezing Albuterol/Ipratropium (Albuterol/Iprat 2.5/0.5mg 3 Ml Ampul.Neb) 3 ml INHALE RQ4H WHILE AWAKE [facility] Last Admin: 04/24/24 15:08 Dose: 3 ml Documented By: JADE Calcium Carbonate (Calcium Carbonate 750 Mg Tab.Chew) 750 mg PO Q4H PRN PRN Reason: Heartburn Enoxaparin Sodium (Enoxaparin Sodium 40 Mg/0.4 Ml Syringe) 40 mg SUBCUT Q24H [facility] Last Admin: 04/24/24 12:40 Dose: 40 mg Documented By: TIMOTHY Doxycycline Hyclate 100 mg/ (Sodium Chloride) 250 mls @ 166.67 mls/hr IV Q12H [facility] Last Infusion: 04/24/24 12:20 Dose: Infused Documented By: TIMOTHY Magnesium Hydroxide (Milk Of Magnesia 30 Ml Oral.Susp) 30 ml PO DAILY PRN PRN Reason: Constipation Melatonin (Melatonin 3 Mg Tablet) 6 mg PO BEDTIME PRN PRN Reason: Insomnia Methylprednisolone Sodium Succinate (Methylprednisolone Sod Succ 125 Mg/2 Ml Vial) 60 mg IVPUSH Q6H [facility] Ondansetron HCl (Ondansetron Hcl 4 Mg/2 Ml Vial) 4 mg IVPUSH Q8H PRN PRN Reason: Nausea and Vomiting Sodium Chloride (0.9 % Sodium Chloride Flush 3 Ml Syringe) 3 ml IVFLUSH QSHIFT [facility] Last Admin: 04/24/24 10:45 Dose: 3 ml Documented By: TIMOTHY Labs 04/24/24 06:51 04/24/24 06:51 Labs: Laboratory Results - last 24 hr 04/24/24 06:51 MCV 85.8 MCH 30.0 MCHC 34.9 RDW 12.8 Plt Count 229 MPV 9.8 Absolute Nucleated RBC 0.000 Nucleated RBC % (auto) 0.0 Anion Gap 13 Estim Creat Clear Calc 90.3 Estimated GFR > 60 Random Glucose 135 H Calcium 8.9 C-Reactive Protein 3.15 H Procalcitonin 0.03 Assessment and Plan (1) Pneumonia: Status: Acute (2) COVID-19: Status: Acute Plan d6 69yo M with hx gastric MALT lymphoma s/p radiation in 2021, seronegative PA, cryptogenic organizing PNA, and ILD presenting with dyspnea, cough, and weakness; admitted for AHRF due to Covid-19 pneumonitis [SaO2 80% on RA on admission, CT with diffuse peribronchovascular + subpleural ground-glass opacities] 1. Acute hypoxic respiratory failure due to Covid-19 pneumonitis -increased methylprednisolone to 60 mg IV q.6 hours (given acute episode this afternoon) -continue doxycycline IV as ordered -titrate O2 to maintain sats greater than equal to 92% -DuoNebs q.4 hours while awake 2.RA/interstitial lung disease -as per 1. Full code Lovenox Requires ongoing hospitalization for high-flow O2 to treat hypoxic respiratory failure in the backdrop of COVID-19. Also require an IV steroids for same Quality Stroke Does the patient have a stroke diagnosis?: No VTE Prior VTE?: No VTE Risk Level:: Medical - moderate - high VTE Device Contraindication: Treatment Not Indicated VTE Drug Contraindication: N/A - Med Ordered
[2024-04-24] MEDS: methylPREDNISolone Sod Succ 125 MG/2 ML VIAL 60 MG IVPUSH ×2 (17:06→22:30)
[2024-04-24] MEDS: Melatonin 3 MG TABLET 6 MG PO (20:58)
[2024-04-25] VITALS (7 sets, daily range): BP systolic 108–147; BP diastolic 58–72; PULSE 52–91; RESP 17–20; TEMP 36.1–36.9; O2SAT 87–96
[2024-04-25] MEDS: methylPREDNISolone Sod Succ 125 MG/2 ML VIAL 60 MG IVPUSH ×4 (03:44→21:50)
[2024-04-25] MEDS: Albuterol/Iprat 2.5/0.5MG 3 ML AMPUL.NEB INHALE ×2 (07:54→11:25)
[2024-04-25] MEDS: Doxycycline Hyclate 100 MG in 0.9 % Sodium Chloride 250 ML 166.7 MG IV ×2 (08:52→22:11)
[2024-04-25] MEDS: 0.9 % Sodium Chloride Flush 3 ML SYRINGE IVFLUSH ×3 (08:57→23:56)
--- NOTE | 2024-04-25 13:10 | HO.PM.IMPN ---
Subjective Subjective Date of Service: 04/25/24 Interval History: Remains with increased O2 requirement but stable overnight. Breathing comfortably on 8 L Review of Systems Denies chest pain Admits shortness of breath with minimal movement Denies nausea vomiting diarrhea Denies fever chills Physical Exam Vital Signs: Vital Signs: Last Vital Signs Temp 97.6 F 04/25/24 12:06 Pulse 91 04/25/24 12:06 Resp 20 04/25/24 12:06 BP 118/72 04/25/24 12:06 Pulse Ox 87 L 04/25/24 12:06 O2 Del Method Oxymask 04/25/24 12:06 O2 Flow Rate 8 04/25/24 12:06 BMI result Body Mass Index 27.1 Const: Other: Awake alert; able to speak short sentences Resp: Other: Diminished at bases with diffuse end inspiratory crackles and scattered dense expiratory wheezes Cardio: Other: No S4; positive S1-S2; no S3 murmurs rubs or gallops GI: Other: Soft nontender nondistended normoactive bowel sounds Extrem: Other: No edema bilaterally Objective Data Active Medications Acetaminophen (Acetaminophen 325 Mg Tablet) 650 mg PO Q6H PRN PRN Reason: Pain, Mild (Pain Scale 1-3), fever or headache Last Admin: 04/21/24 09:00 Dose: 650 mg Documented By: JS Albuterol Sulfate (Albuterol Sulfate (0.083%) 2.5 Mg/3 Ml Vial.Neb) 2.5 mg INHALE Q2H PRN PRN Reason: Shortness of Breath/Wheezing Albuterol/Ipratropium (Albuterol/Iprat 2.5/0.5mg 3 Ml Ampul.Neb) 3 ml INHALE RQ4H WHILE AWAKE [facility] Last Admin: 04/25/24 11:25 Dose: 3 ml Documented By: SHYANNE Calcium Carbonate (Calcium Carbonate 750 Mg Tab.Chew) 750 mg PO Q4H PRN PRN Reason: Heartburn Enoxaparin Sodium (Enoxaparin Sodium 40 Mg/0.4 Ml Syringe) 40 mg SUBCUT Q24H [facility] Last Admin: 04/24/24 12:40 Dose: 40 mg Documented By: TIMOTHY Doxycycline Hyclate 100 mg/ (Sodium Chloride) 250 mls @ 166.67 mls/hr IV Q12H [facility] Last Admin: 04/25/24 08:52 Dose: 166.7 mls/hr Documented By: TIMOTHY Magnesium Hydroxide (Milk Of Magnesia 30 Ml Oral.Susp) 30 ml PO DAILY PRN PRN Reason: Constipation Melatonin (Melatonin 3 Mg Tablet) 6 mg PO BEDTIME PRN PRN Reason: Insomnia Last Admin: 04/24/24 20:58 Dose: 6 mg Documented By: MCKENZIE Methylprednisolone Sodium Succinate (Methylprednisolone Sod Succ 125 Mg/2 Ml Vial) 60 mg IVPUSH Q6H [facility] Last Admin: 04/25/24 03:44 Dose: 60 mg Documented By: MCKENZIE Ondansetron HCl (Ondansetron Hcl 4 Mg/2 Ml Vial) 4 mg IVPUSH Q8H PRN PRN Reason: Nausea and Vomiting Sodium Chloride (0.9 % Sodium Chloride Flush 3 Ml Syringe) 3 ml IVFLUSH QSHIFT [facility] Last Admin: 04/25/24 08:57 Dose: 3 ml Documented By: TIMOTHY Labs 04/24/24 06:51 04/24/24 06:51 Assessment and Plan (1) Viral pneumonitis: Status: Acute (2) COVID-19: Status: Acute Plan d6 69yo M with hx gastric MALT lymphoma s/p radiation in 2021, seronegative PA, cryptogenic organizing PNA, and ILD presenting with dyspnea, cough, and weakness; admitted for AHRF due to Covid-19 pneumonitis [SaO2 80% on RA on admission, CT with diffuse peribronchovascular + subpleural ground-glass opacities] 1. Acute hypoxic respiratory failure due to Covid-19 pneumonitis -increased methylprednisolone to 60 mg IV q.6 hours (given acute episode this afternoon) -continue doxycycline IV as ordered -titrate O2 to maintain sats greater than equal to 92%.... Comfortable at 8 liters/minute via facemask -DuoNebs q.4 hours while awake 2.RA/interstitial lung disease -as per 1. Full code Lovenox Requires ongoing hospitalization for high-flow O2 to treat hypoxic respiratory failure in the backdrop of COVID-19. Also require an IV steroids for same Quality Stroke Does the patient have a stroke diagnosis?: No VTE Prior VTE?: No VTE Risk Level:: Medical - moderate - high VTE Device Contraindication: Treatment Not Indicated VTE Drug Contraindication: N/A - Med Ordered
[2024-04-25] MEDS: Enoxaparin Sodium 40 MG/0.4 ML SYRINGE SUBCUT (13:11)
[2024-04-25] MEDS: Melatonin 3 MG TABLET 6 MG PO (22:12)
[2024-04-26] VITALS: BP 150/77; PULSE 52; RESP 20; TEMP 37.4; O2SAT 91
[2024-04-26 03:45] VITALS: BP 147/72; PULSE 50; RESP 20; TEMP 36.3; O2SAT 94
[2024-04-26] MEDS: methylPREDNISolone Sod Succ 125 MG/2 ML VIAL 60 MG IVPUSH ×4 (04:00→22:13)
[2024-04-26 07:31] VITALS: BP 134/70; PULSE 47; RESP 18; TEMP 36.5; O2SAT 94
[2024-04-26] MEDS: 0.9 % Sodium Chloride Flush 3 ML SYRINGE IVFLUSH ×2 (09:15→15:22)
[2024-04-26] MEDS: Doxycycline Hyclate 100 MG in 0.9 % Sodium Chloride 250 ML 166.67 MG IV (09:23)
[2024-04-26] MEDS: Enoxaparin Sodium 40 MG/0.4 ML SYRINGE SUBCUT (11:04)
--- NOTE | 2024-04-26 13:32 | MHC.CM.PN ---
EMR reviewed and per MD rounds, pt is not medically cleared for discharge due to management of hypoxic respiratory failure secondary to covid-19 infection.
[2024-04-26 14:23] VITALS: BP 134/70; PULSE 47; O2SAT 94
--- NOTE | 2024-04-26 15:26 | P.PNIM_ITS ---
Subjective Subjective Date of Service: 04/26/24 Interval History: Continues require high-flow O2 despite therapies. Sats stable when sedentary; minimal movement desaturates patient Review of Systems Denies chest pain Admits shortness of breath with minimal movement Denies nausea vomiting diarrhea Denies fever chills Physical Exam 2 Vital Signs: Vital Signs: Last Vital Signs Temp 97.7 F 04/26/24 07:31 Pulse 47 L 04/26/24 14:23 Resp 18 04/26/24 07:31 BP 134/70 04/26/24 14:23 Pulse Ox 94 04/26/24 14:23 O2 Del Method Oxymask 04/26/24 07:31 O2 Flow Rate 10 04/26/24 07:31 BMI result Body Mass Index 27.1 Const: Other: Awake alert; able to speak short sentences Resp: Other: Diminished at bases with diffuse end inspiratory crackles and scattered dense expiratory wheezes Cardio: Other: No S4; positive S1-S2; no S3 murmurs rubs or gallops GI: Other: Soft nontender nondistended normoactive bowel sounds Extrem: Other: No edema bilaterally Objective Data Active Medications Acetaminophen (Acetaminophen 325 Mg Tablet) 650 mg PO Q6H PRN PRN Reason: Pain, Mild (Pain Scale 1-3), fever or headache Last Admin: 04/21/24 09:00 Dose: 650 mg Documented By: JS Albuterol Sulfate (Albuterol Sulfate (0.083%) 2.5 Mg/3 Ml Vial.Neb) 2.5 mg INHALE Q2H PRN PRN Reason: Shortness of Breath/Wheezing Calcium Carbonate (Calcium Carbonate 750 Mg Tab.Chew) 750 mg PO Q4H PRN PRN Reason: Heartburn Enoxaparin Sodium (Enoxaparin Sodium 40 Mg/0.4 Ml Syringe) 40 mg SUBCUT Q24H [facility] Last Admin: 04/26/24 11:04 Dose: 40 mg Documented By: LISA Doxycycline Hyclate 100 mg/ (Sodium Chloride) 250 mls @ 166.67 mls/hr IV Q12H [facility] Last Infusion: 04/26/24 10:53 Dose: Infused Documented By: LISA Magnesium Hydroxide (Milk Of Magnesia 30 Ml Oral.Susp) 30 ml PO DAILY PRN PRN Reason: Constipation Melatonin (Melatonin 3 Mg Tablet) 6 mg PO BEDTIME PRN PRN Reason: Insomnia Last Admin: 04/25/24 22:12 Dose: 6 mg Documented By: HENRY Methylprednisolone Sodium Succinate (Methylprednisolone Sod Succ 125 Mg/2 Ml Vial) 60 mg IVPUSH Q6H [facility] Last Admin: 04/26/24 15:22 Dose: 60 mg Documented By: LISA Ondansetron HCl (Ondansetron Hcl 4 Mg/2 Ml Vial) 4 mg IVPUSH Q8H PRN PRN Reason: Nausea and Vomiting Sodium Chloride (0.9 % Sodium Chloride Flush 3 Ml Syringe) 3 ml IVFLUSH QSHIFT [facility] Last Admin: 04/26/24 15:22 Dose: 3 ml Documented By: LISA Labs 04/24/24 06:51 04/24/24 06:51 Assessment and Plan (1) COVID-19: Status: Acute (2) Viral pneumonitis: Status: Acute Plan d6 69yo M with hx gastric MALT lymphoma s/p radiation in 2021, seronegative PA, cryptogenic organizing PNA, and ILD presenting with dyspnea, cough, and weakness; admitted for AHRF due to Covid-19 pneumonitis [SaO2 80% on RA on admission, CT with diffuse peribronchovascular + subpleural ground-glass opacities] 1. 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 . . We will check IgG levels and Dr. Rowley will see -increased methylprednisolone to 60 mg IV q.6 hours -continue doxycycline IV as ordered -titrate O2 to maintain sats greater than equal to 92%.... -DuoNebs q.4 hours while awake 2.RA/interstitial lung disease -as per 1. Full code Lovenox Requires ongoing hospitalization for high-flow O2 to treat hypoxic respiratory failure in the backdrop of COVID-19. Also require an IV steroids for same Quality Stroke Does the patient have a stroke diagnosis?: No VTE Prior VTE?: No VTE Risk Level:: Medical - moderate - high VTE Device Contraindication: Treatment Not Indicated VTE Drug Contraindication: N/A - Med Ordered
[2024-04-26 16:00] VITALS: BP 157/73; PULSE 45; RESP 17; TEMP 37; O2SAT 97
[2024-04-26 20:00] VITALS: BP 155/73; PULSE 46; RESP 18; TEMP 37; O2SAT 97
[2024-04-26] MEDS: Doxycycline Hyclate 100 MG in 0.9 % Sodium Chloride 250 ML 166.7 MG IV (20:03)
[2024-04-26] MEDS: Melatonin 3 MG TABLET 6 MG PO (20:03)
[2024-04-26] MEDS: cefTRIAXone sodium 1 GM in 0.9 % Sodium Chloride 50 ML IV (22:13)
[2024-04-27] MEDS: 0.9 % Sodium Chloride Flush 3 ML SYRINGE IVFLUSH ×3 (00:30→18:05)
[2024-04-27 03:19] VITALS: BP 145/52; PULSE 46; RESP 20; TEMP 36.3; O2SAT 95
[2024-04-27] MEDS: methylPREDNISolone Sod Succ 125 MG/2 ML VIAL 60 MG IVPUSH ×4 (03:33→21:44)
--- NOTE | 2024-04-27 05:28 | PC.NURSE ---
Patient AAOX4 with no events throughout the night. Mental status and behavior have improved over 24 hours. Observed walking in the wall way with STA before going to bed with steady gait and no SOB/TURCIOS. VSS. NSR on compliance monitor. Safety precautions in place. No signs and symptoms of acute distress reported.
--- NOTE | 2024-04-27 05:49 | PC.NURSE ---
Patient AAOX4 kept on O2 12 l via oxymask. POX 93-95%. HR 45 to 50. Patient is asymptomatic and said this is his baseline. Persistent dry cough noted this am. Cough medicine offered but refused. Iv doxycycline and iv ceftriaxone given as ordered. Safety precautions in place and patient is instructed to call for assistance.
[2024-04-27 07:56] VITALS: BP 110/69; PULSE 45; RESP 20; TEMP 36.4; O2SAT 95
[2024-04-27] MEDS: Doxycycline Hyclate 100 MG in 0.9 % Sodium Chloride 250 ML 166.7 MG IV ×2 (08:26→21:01)
--- NOTE | 2024-04-27 09:11 | P.PNPL_ITS ---
Subjective Subjective Date of Service: 04/27/24 Interval history: The patient was seen on exam. He is currently on OxyMask. He is completely supine. Appears to be a little bit down. We did talk about working on deep breathing exercises and proning. In the meantime I did review his CT scan of the chest which was personally by me. He does have some evidence of ground- glass opacities and some reticular changes scattered throughout. Likely a component of ARDS because of the COVID. The patient has been immunocompromised on Rituxan. Therefore, unlikely has any functional IgG antibodies. Therefore, I do agree that IVIG will be helpful in improving his overall state. Currently on also is on steroids and will also escalate his antibiotics to treat him for postviral bacterial infections. Objective Data Labs 04/24/24 06:51 04/24/24 06:51 Review of Systems Constitutional: Denies daytime sleepiness, Denies excessive sweating, Reports fatigue, Denies fever(s), Reports lethargy, Reports malaise, Denies night sweats, Denies snoring and Denies weight loss Eyes: Denies blurry vision and Denies itchy eyes Denies nasal congestion, Denies post nasal drip, Denies sinus pain, Denies sinus pressure and Denies other ( Thrush) Cardiovascular: Denies chest pain, Denies pedal edema, Reports dyspnea, Reports dyspnea on exertion, Denies orthopnea and Denies paroxysmal nocturnal dyspnea Respiratory: Reports cough, Denies hemoptysis, Reports excessive phlegm production, Reports dyspnea, Reports dyspnea on exertion, Denies snoring and Denies wheezing Gastrointestinal: Denies abdominal pain and Denies heartburn Musculoskeletal: Denies myalgias, Denies arthralgias and Denies joint swelling Skin/Breast: Denies rash Denies memory loss and Denies seizure-like activity Psychiatric: Denies abnormal sleep pattern, Denies anxiety and Denies memory loss Endocrine: Denies excessive sweating, Reports fatigue and Denies heat intolerance Hematologic/Lymphatic: Denies easy bruising Allergic/Immunologic: Denies itchy eyes, Denies seasonal rhinorrhea and Denies wheezing Physical Exam 2 Vital Signs: Vital Signs: Last Vital Signs Temp 97.6 F 04/27/24 07:56 Pulse 45 L 04/27/24 07:56 Resp 20 04/27/24 07:56 BP 110/69 09/17/24 07:56 Pulse Ox 95 04/27/24 07:56 O2 Del Method Oxymask 04/27/24 07:56 O2 Flow Rate 2 04/27/24 07:56 BMI result Body Mass Index 27.1 Const: Other: Awake alert; able to speak short sentences Resp: Other: Diminished at bases with diffuse end inspiratory crackles and scattered dense expiratory wheezes Cardio: Other: No S4; positive S1-S2; no S3 murmurs rubs or gallops GI: Other: Soft nontender nondistended normoactive bowel sounds Extrem: Other: No edema bilaterally Procedures Date of Service Date of Service: 04/27/24 Assessment and Plan Assessment and plan (1) Acute respiratory distress syndrome (ARDS) due to COVID-19 virus: Status: Acute (2) COVID-19: Status: Acute (3) Viral pneumonitis: Status: Acute (4) Pneumonia: Status: Acute Plan Added ceftriaxone as night Continue doxycycline Continue Solu-Medrol IVIG 20 g IV x1 now Talk to the patient about breathing exercises and proning Time Spent With Patient Time: Total time managing care of this patient today ____ minutes. Progress Note: Quality Stroke Does the patient have a stroke diagnosis?: No
[2024-04-27 09:28] LABS: Immunoglobulin G 752 mg/dL (600-1540)
[2024-04-27] MEDS: diphenhydrAMINE HCL 50 MG/ML VIAL 25 MG IVPUSH (09:28)
[2024-04-27] MEDS: Acetaminophen 325 MG TABLET 650 MG PO (09:30)
[2024-04-27] MEDS: Immune Globulin 10% Gammagard 200 ML IV (10:04)
[2024-04-27 11:28] VITALS: BP 121/69; PULSE 49; RESP 20; TEMP 36.4; O2SAT 95
[2024-04-27] MEDS: Enoxaparin Sodium 40 MG/0.4 ML SYRINGE SUBCUT (12:59)
[2024-04-27 15:23] VITALS: BP 140/70; PULSE 54; RESP 20; TEMP 36.1; O2SAT 93
[2024-04-27 20:00] VITALS: BP 159/72; PULSE 53; RESP 20; TEMP 36.2; O2SAT 93
[2024-04-27] MEDS: Melatonin 3 MG TABLET 6 MG PO (20:11)
[2024-04-27] MEDS: cefTRIAXone sodium 1 GM in 0.9 % Sodium Chloride 50 ML IV (20:13)
[2024-04-27] MEDS: guaiFENesin 200 MG/10 ML 10 ML LIQUID PO (21:44)
[2024-04-28] MEDS: 0.9 % Sodium Chloride Flush 3 ML SYRINGE IVFLUSH ×3 (00:30→15:22)
[2024-04-28 03:27] VITALS: BP 158/75; PULSE 44; RESP 20; TEMP 36.4; O2SAT 95
[2024-04-28] MEDS: methylPREDNISolone Sod Succ 125 MG/2 ML VIAL 60 MG IVPUSH ×4 (05:23→21:16)
[2024-04-28 06:57] LABS: Alanine Aminotransferase 133 U/L (0-40); Albumin Level 2.9 g/dL (3.5-5.0); Alkaline Phosphatase 39 U/L (39-117); Anion Gap 10 (12-20); Aspartate Amino Transferase 45 U/L (5-37); Bilirubin Total 0.5 mg/dL (0.0-1.0); Blood Urea Nitrogen 20 mg/dL (9-16); Calcium 8.4 mg/dL (8.4-10.2); Carbon Dioxide 27 mmol/L (22-29); Chloride 107 mmol/L (96-108); Creatinine Clr Calc Pharmacy 89.1; Estimated Glomerular Filt Rate > 60; Glucose Fasting 150 mg/dL (60-99); Potassium 4.4 mmol/L (3.3-5.1); Sodium 140 mmol/L (135-145); Total Protein 5.7 g/dL (6.5-8.0)
[2024-04-28 06:58] LABS: Basophils Percent Auto 0.2 % (0-2); Hematocrit 39.8 % (42.0-52.0); Hemoglobin 13.6 g/dl (14.0-18.0); Imm Gran Abs Auto 0.35 X10*3/uL (0.00-0.03); Imm Gran Pct Auto 2.4 % (0.0-0.4); Lymphocytes Absolute Auto 0.2 X10*3/uL (1.2-4.9); Lymphocytes Percent Auto 1.5 % (20-40); MANUAL DIFF FLAG SCAN; Mean Corpuscular HGB Conc 34.2 g/dl (31.0-36.0); Mean Corpuscular Hemoglobin 29.6 pg (27.0-33.0); Mean Corpuscular Volume 86.5 fL (80.0-98.0); Mean Platelet Volume 10.2 fL (9.4-12.4); Monocytes Absolute Auto 0.5 X10*3/uL (0.1-1.2); Monocytes Percent Auto 3.6 % (2-11); Neutrophils Absolute Auto 13.5 x10*3/uL (2.0-8.3); Neutrophils Percent Auto 92.3 % (45-73); Platelet Count 191 X10*3/uL (160-400); Red Cell Distribution Width 12.4 % (11.0-16.0); SCAN SMEAR FLAG 1; White Blood Count 14.6 X10*3/uL (4.8-10.8)
[2024-04-28 07:36] VITALS: BP 174/85; PULSE 47; RESP 19; TEMP 36.1; O2SAT 91
[2024-04-28] MEDS: Doxycycline Monohydrate 100 MG CAPSULE PO ×2 (08:02→21:18)
[2024-04-28] MEDS: cefTRIAXone sodium 1 GM in 0.9 % Sodium Chloride 50 ML IV ×2 (08:40→20:35)
[2024-04-28 08:49] LABS: SLIDE REVIEW VERIFIED
[2024-04-28] MEDS: Enoxaparin Sodium 40 MG/0.4 ML SYRINGE SUBCUT (11:50)
--- NOTE | 2024-04-28 14:56 | MHC.CM.PN ---
Per rounds and EMR review, pt. is not yet ready for DC. DCP is home with new VNA by [facility]. Clinical update sent to [facility].
--- NOTE | 2024-04-28 14:58 | HO.PM.IMPN ---
Subjective Subjective Date of Service: 04/28/24 Interval History: Slowly improving. Now able to lie flat without issue. Review of Systems Denies chest pain Admits shortness of breath with minimal movement Denies nausea vomiting diarrhea Denies fever chills Physical Exam Vital Signs: Vital Signs: Last Vital Signs Temp 96.9 F 04/28/24 07:36 Pulse 47 L 04/28/24 07:36 Resp 19 04/28/24 07:36 BP 174/85 H 04/28/24 07:36 Pulse Ox 91 L 04/28/24 07:36 O2 Del Method Oxymask 04/28/24 07:36 O2 Flow Rate 8 04/28/24 07:36 BMI result Body Mass Index 27.1 Const: Other: Awake alert; able to speak short sentences Resp: Other: Diminished at bases with diffuse end inspiratory crackles and scattered dense expiratory wheezes Cardio: Other: No S4; positive S1-S2; no S3 murmurs rubs or gallops GI: Other: Soft nontender nondistended normoactive bowel sounds Extrem: Other: No edema bilaterally Objective Data Active Medications Acetaminophen (Acetaminophen 325 Mg Tablet) 650 mg PO Q6H PRN PRN Reason: Pain, Mild (Pain Scale 1-3), fever or headache Last Admin: 04/27/24 09:30 Dose: 650 mg Documented By: CRISTIN Calcium Carbonate (Calcium Carbonate 750 Mg Tab.Chew) 750 mg PO Q4H PRN PRN Reason: Heartburn Doxycycline Monohydrate (Doxycycline Monohydrate 100 Mg Capsule) 100 mg PO Q12H [facility] Last Admin: 04/28/24 08:02 Dose: 100 mg Documented By: CRISTIN Enoxaparin Sodium (Enoxaparin Sodium 40 Mg/0.4 Ml Syringe) 40 mg SUBCUT Q24H [facility] Last Admin: 04/28/24 11:50 Dose: 40 mg Documented By: CRISTIN Guaifenesin (Guaifenesin 200 Mg/10 Ml 10 Ml Liquid) 10 ml PO Q4H PRN PRN Reason: Cough Last Admin: 04/27/24 21:44 Dose: 10 ml Documented By: HENRY Ceftriaxone Sodium 1 gm/ (Sodium Chloride) 50 mls @ 100 mls/hr IV Q24H [facility] Last Infusion: 04/28/24 08:03 Dose: Infused Documented By: CRISTIN Magnesium Hydroxide (Milk Of Magnesia 30 Ml Oral.Susp) 30 ml PO DAILY PRN PRN Reason: Constipation Melatonin (Melatonin 3 Mg Tablet) 6 mg PO BEDTIME PRN PRN Reason: Insomnia Last Admin: 04/27/24 20:11 Dose: 6 mg Documented By: HENRY Methylprednisolone Sodium Succinate (Methylprednisolone Sod Succ 125 Mg/2 Ml Vial) 60 mg IVPUSH Q6H [facility] Last Admin: 04/28/24 09:49 Dose: 60 mg Documented By: CRISTIN Ondansetron HCl (Ondansetron Hcl 4 Mg/2 Ml Vial) 4 mg IVPUSH Q8H PRN PRN Reason: Nausea and Vomiting Sodium Chloride (0.9 % Sodium Chloride Flush 3 Ml Syringe) 3 ml IVFLUSH QSHIFT [facility] Last Admin: 04/28/24 08:02 Dose: 3 ml Documented By: CRISTIN Labs 04/28/24 06:03 04/28/24 06:03 Labs: Laboratory Results - last 24 hr 04/28/24 06:03 MCV 86.5 MCH 29.6 MCHC 34.2 RDW 12.4 Plt Count 191 MPV 10.2 Immature Gran % (Auto) 2.4 H Neut % (Auto) 92.3 H Lymph % (Auto) 1.[address] [place] % (Auto) 3.6 Eos % (Auto) 0.0 Baso % (Auto) 0.2 Lymph # (Auto) 0.[address] [place] # (Auto) 0.5 Eos # (Auto) 0.0 Baso # (Auto) 0.0 Abs Immat Gran (auto) 0.35 H Absolute Neuts (auto) 13.5 H Absolute Nucleated RBC 0.000 Nucleated RBC % (auto) 0.0 Smear Tech's Comments VERIFIED Anion Gap 10 L Estim Creat Clear Calc 89.1 Estimated GFR > 60 Fasting Glucose 150 H Calcium 8.4 Total Bilirubin 0.5 AST 45 H ALT 133 H Alkaline Phosphatase 39 Total Protein 5.7 L Albumin 2.9 L Assessment and Plan (1) Acute respiratory distress syndrome (ARDS) due to COVID-19 virus: Status: Acute Plan 69yo M with hx gastric MALT lymphoma s/p radiation in 2021, seronegative PA, cryptogenic organizing PNA, and ILD presenting with dyspnea, cough, and weakness; admitted for AHRF due to Covid-19 pneumonitis [SaO2 80% on RA on admission, CT with diffuse peribronchovascular + subpleural ground-glass opacities] 1. Acute hypoxic respiratory failure due to Covid-19 pneumonitis -slowly improving on current therapies -methylprednisolone to 60 mg IV q.6 hours -continue doxycycline IV as ordered. Ceftriaxone added by Pulmonary -titrate O2 to maintain sats greater than equal to 92%.... -DuoNebs q.4 hours while awake 2.RA/interstitial lung disease -as per 1. Full code Lovenox Requires ongoing hospitalization for high-flow O2 to treat hypoxic respiratory failure in the backdrop of COVID-19. Also require an IV steroids for same Quality Stroke Does the patient have a stroke diagnosis?: No VTE Prior VTE?: No VTE Risk Level:: Medical - moderate - high VTE Device Contraindication: Treatment Not Indicated VTE Drug Contraindication: N/A - Med Ordered
[2024-04-28 15:55] VITALS: BP 151/76; PULSE 53; TEMP 36.7; O2SAT 95
[2024-04-28] MEDS: Acetaminophen 325 MG TABLET 650 MG PO (18:25)
[2024-04-28 18:26] VITALS: O2SAT 7
--- NOTE | 2024-04-28 18:27 | PC.NURSE ---
Pt reported that his breathing is better today, oxygen saturation 98% on prone position , when sitting up O2sat 91% on 7 liter via oxymask . Pt exercises deep breathing , also using IS
[2024-04-28 19:24] VITALS: BP 160/80; PULSE 55; RESP 20; TEMP 36.3; O2SAT 97
[2024-04-28] MEDS: Melatonin 3 MG TABLET 6 MG PO (21:14)
[2024-04-29] VITALS (7 sets, daily range): BP systolic 96–160; BP diastolic 42–79; PULSE 53–99; RESP 16–20; TEMP 36–36.9; O2SAT 87–97
[2024-04-29] MEDS: 0.9 % Sodium Chloride Flush 3 ML SYRINGE IVFLUSH ×2 (00:45→08:15)
[2024-04-29] MEDS: methylPREDNISolone Sod Succ 125 MG/2 ML VIAL 60 MG IVPUSH ×2 (05:10→08:15)
[2024-04-29] MEDS: Doxycycline Monohydrate 100 MG CAPSULE PO ×2 (08:15→20:04)
--- NOTE | 2024-04-29 09:02 | P.PNPL_ITS ---
Subjective Subjective Date of Service: 04/29/24 Interval history: The patient was seen on exam. He is still on the OxyMask. His nose is stopped and is hard for him to breathe through his now so therefore he has hard time tolerating cannula. He is sitting up in his eating. He is concerned about his blood pressure being high. Explained to him that is likely the medication that he is taking. I did review his chest x-ray today did compared to his previous. He has significant airspace disease and start to organize. He has been on the antibiotics for postviral bacterial infections. Does not have any fevers and he is coughing without any significant chest congestion which is reassuring. He is working on deep breathing exercises. Objective Data Labs 04/28/24 06:03 04/28/24 06:03 Review of Systems Constitutional: Denies daytime sleepiness, Denies excessive sweating, Denies fever(s), Denies night sweats, Denies snoring and Denies weight loss Eyes: Denies blurry vision and Denies itchy eyes Denies nasal congestion, Denies post nasal drip, Denies sinus pain, Denies sinus pressure and Denies other ( Thrush) Cardiovascular: Denies chest pain, Denies pedal edema, Reports dyspnea, Reports dyspnea on exertion, Denies orthopnea and Denies paroxysmal nocturnal dyspnea Respiratory: Reports cough, Denies hemoptysis, Reports excessive phlegm production, Reports dyspnea, Reports dyspnea on exertion, Denies snoring and Denies wheezing Gastrointestinal: Denies abdominal pain and Denies heartburn Musculoskeletal: Denies myalgias, Denies arthralgias and Denies joint swelling Skin/Breast: Denies rash Denies memory loss and Denies seizure-like activity Psychiatric: Denies abnormal sleep pattern, Denies anxiety and Denies memory loss Endocrine: Denies excessive sweating and Denies heat intolerance Hematologic/Lymphatic: Denies easy bruising Allergic/Immunologic: Denies itchy eyes, Denies seasonal rhinorrhea and Denies wheezing Physical Exam 2 Vital Signs: Vital Signs: Last Vital Signs Temp 97.4 F 04/29/24 08:00 Pulse 53 04/29/24 08:00 Resp 20 04/29/24 08:00 BP 139/79 04/29/24 08:00 Pulse Ox 87 L 04/29/24 08:00 O2 Del Method Oxymask 04/29/24 08:00 O2 Flow Rate 7 09/19/24 08:00 BMI result Body Mass Index 27.1 Const: Other: Awake alert; able to speak short sentences Resp: Other: Diminished at bases with diffuse end inspiratory crackles and no expiratory wheezes Cardio: Other: No S4; positive S1-S2; no S3 murmurs rubs or gallops GI: Other: Soft nontender nondistended normoactive bowel sounds Extrem: Other: No edema bilaterally Procedures Date of Service Date of Service: 04/29/24 Assessment and Plan Assessment and plan (1) Acute respiratory distress syndrome (ARDS) due to COVID-19 virus: Status: Acute (2) COVID-19: Status: Acute (3) Viral pneumonitis: Status: Acute (4) Pneumonia: Status: Acute Plan continue ceftriaxone x 7 days Continue doxycycline x 7 days Continue Solu-Medrol, decrease 60mg daily IVIG 20 g IV x1 given, IgG levels are low normal Talk to the patient about breathing exercises and proning Afrin nasal spray x 5 days to see if he can tolerate the nasal cannula better Time Spent With Patient Time: Total time managing care of this patient today ____ minutes. Progress Note: Quality Stroke Does the patient have a stroke diagnosis?: No
[2024-04-29] MEDS: Acetaminophen 325 MG TABLET 650 MG PO ×2 (10:15→20:04)
[2024-04-29] MEDS: Enoxaparin Sodium 40 MG/0.4 ML SYRINGE SUBCUT (11:50)
--- NOTE | 2024-04-29 12:28 | MHC.CM.PN ---
Second IMM 04/29/24, CM met with pt. today to discuss DC plan. He was accepted for VNA services from [facility]. PT rec. pulmonary rehab. Pt. said he prefers to go home and has family in the home that can assist him.
--- NOTE | 2024-04-29 16:25 | HO.PM.IMPN ---
Subjective Subjective Date of Service: 04/29/24 Interval History: Seen and examined this morning Follow-up for respiratory failure, MARGARET Was able to be weaned down to room air briefly, now back on 2 L but overall improving Desaturates with minimal movement Review of Systems Review of Systems: Yes all other systems are reviewed and are negative Constitutional Constitutional: Denies chills and Denies fever(s) Cardiovascular Cardiovascular: Denies chest pain Gastrointestinal Gastrointestinal: Denies abdominal pain Physical Exam Vital Signs: Vital Signs: Last Vital Signs Temp 96.8 F 04/29/24 15:31 Pulse 99 04/29/24 15:31 Resp 16 04/29/24 15:31 BP 117/58 L 04/29/24 15:31 Pulse Ox 91 L 04/29/24 15:47 O2 Del Method Room Air 04/29/24 15:47 O2 Flow Rate 2 04/29/24 15:31 BMI result Body Mass Index 27.1 Const: General: cooperative, comfortable, no acute distress and alert Nutritional Appearance: average body habitus Orientation/consciousness: patient oriented x3 Resp: Other: crackles b/l Cardio: Rate: regular rate GI: Inspection: No distended Palpation (GI): Soft to palpation and nontender Neuro: General: patient oriented x3, moves all extremities and CN's II-XI intact bilaterally Extrem: General: Yes no pedal edema Objective Data Active Medications Acetaminophen (Acetaminophen 325 Mg Tablet) 650 mg PO Q6H PRN PRN Reason: Pain, Mild (Pain Scale 1-3), fever or headache Last Admin: 04/29/24 10:15 Dose: 650 mg Documented By: LISA Calcium Carbonate (Calcium Carbonate 750 Mg Tab.Chew) 750 mg PO Q4H PRN PRN Reason: Heartburn Doxycycline Monohydrate (Doxycycline Monohydrate 100 Mg Capsule) 100 mg PO Q12H [facility] Last Admin: 04/29/24 08:15 Dose: 100 mg Documented By: LISA Enoxaparin Sodium (Enoxaparin Sodium 40 Mg/0.4 Ml Syringe) 40 mg SUBCUT Q24H [facility] Last Admin: 04/29/24 11:50 Dose: 40 mg Documented By: LISA Guaifenesin (Guaifenesin 200 Mg/10 Ml 10 Ml Liquid) 10 ml PO Q4H PRN PRN Reason: Cough Last Admin: 04/27/24 21:44 Dose: 10 ml Documented By: HENRY Ceftriaxone Sodium 1 gm/ (Sodium Chloride) 50 mls @ 100 mls/hr IV Q24H [facility] Last Infusion: 04/28/24 21:05 Dose: Infused Documented By: HENRY Magnesium Hydroxide (Milk Of Magnesia 30 Ml Oral.Susp) 30 ml PO DAILY PRN PRN Reason: Constipation Melatonin (Melatonin 3 Mg Tablet) 6 mg PO BEDTIME PRN PRN Reason: Insomnia Last Admin: 04/28/24 21:14 Dose: 6 mg Documented By: HENRY Methylprednisolone Sodium Succinate (Methylprednisolone Sod Succ 125 Mg/2 Ml Vial) 60 mg IVPUSH Q24H [facility] Ondansetron HCl (Ondansetron Hcl 4 Mg/2 Ml Vial) 4 mg IVPUSH Q8H PRN PRN Reason: Nausea and Vomiting Oxymetazoline HCl (Oxymetazoline Hcl 0.05 % Nasal 15 Ml [place]) 2 spray NOSTRIL-B BID [facility] Stop: 05/04/24 20:59 Sodium Chloride (0.9 % Sodium Chloride Flush 3 Ml Syringe) 3 ml IVFLUSH QSHIFT [facility] Last Admin: 04/29/24 16:01 Dose: Not Given Documented By: LISA Non-Admin Reason: Previously Administered Labs 04/28/24 06:03 04/28/24 06:03 Assessment and Plan (1) COVID-19: Status: Acute (2) Acute respiratory distress syndrome (ARDS) due to COVID-19 virus: Status: Acute Plan 69yo M with hx gastric MALT lymphoma s/p radiation in 2021, seronegative PA, cryptogenic organizing PNA, and ILD presenting with dyspnea, cough, and weakness; admitted for AHRF due to Covid-19 pneumonitis [SaO2 80% on RA on admission, CT with diffuse peribronchovascular + subpleural ground-glass opacities] 1. Acute hypoxic respiratory failure due to Covid-19 pneumonitis -slowly improving on current therapies Wean Solu-Medrol to once daily Continue doxycycline, ceftriaxone for total of 7 days -titrate O2 to maintain sats greater than equal to 92%.... -DuoNebs q.4 hours while awake 2.RA/interstitial lung disease -as per 1. Full code Lovenox Requires ongoing hospitalization for high-flow O2 to treat hypoxic respiratory failure in the backdrop of COVID-19 Quality Stroke Does the patient have a stroke diagnosis?: No VTE Prior VTE?: No VTE Risk Level:: Medical - moderate - high VTE Device Contraindication: Treatment Not Indicated VTE Drug Contraindication: N/A - Med Ordered
[2024-04-29] MEDS: Oxymetazoline HCl 0.05 % Nasal 15 ML SPRAY 2 SPRAY NOSTRIL-B (21:25)
[2024-04-29] MEDS: Calcium Carbonate 750 MG TAB.CHEW PO (21:26)
[2024-04-29] MEDS: cefTRIAXone sodium 1 GM in 0.9 % Sodium Chloride 50 ML IV (21:26)
[2024-04-30 03:37] VITALS: BP 148/75; PULSE 57; RESP 20; TEMP 36.4; O2SAT 91
[2024-04-30] MEDS: methylPREDNISolone Sod Succ 125 MG/2 ML VIAL 60 MG IVPUSH (06:11)
[2024-04-30] MEDS: 0.9 % Sodium Chloride Flush 3 ML SYRINGE IVFLUSH ×3 (06:11→16:20)
[2024-04-30 07:25] VITALS: BP 167/92; PULSE 94; RESP 20; TEMP 37.2; O2SAT 88
[2024-04-30] MEDS: Oxymetazoline HCl 0.05 % Nasal 15 ML SPRAY 2 SPRAY NOSTRIL-B (08:44)
[2024-04-30] MEDS: Doxycycline Monohydrate 100 MG CAPSULE PO (08:46)
[2024-04-30] MEDS: Enoxaparin Sodium 40 MG/0.4 ML SYRINGE SUBCUT (12:26)
[2024-04-30 12:47] VITALS: PULSE 85; PULSE 88; PULSE 90; O2SAT 84; O2SAT 85; O2SAT 91; O2SAT 92
--- NOTE | 2024-04-30 13:07 | P.DS_ITS ---
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 Patient reports he was 1st diagnosed with COVID approximately 2 weeks ago on 04/06. Was experiencing fever, chills, SOB, TURCIOS, weakness, and productive cough. Symptoms persisted so patient presented to the ED on 04/14 and was started amoxicillin and doxycycline for COVID pneumonia. Patient reports was compliant with medications, but continued to get worse. States has been essentially bed-bound for the past 10 days. Also experiencing nausea, vomiting, reduced p.o. intake, and waxing and waning fever that begins at night and dissipates during the day. Of note, patient reports had last rituximab infusion around 3 weeks ago which ?hit me pretty hard . In the ED pt was tachypneic up to 22 and hypoxic as low as 88% on RA. Labs were significant for lactic acid of 2.6 with repeat 1.3, otherwise grossly unremarkab le and baseline for patient. No leukocytosis. Stable H&H. No significant electrolyte abnormalities. Renal and hepatic function WNL. CXR showed continued mild increase in patchy multifocal bilateral airspace opacities suspicious for multifocal pneumonia, as well as suspicion for developing cavitary lesion in right mid lung. CT of chest found diffuse peribronchovascular and subpleural ground-glass involving all lobes suggestive of atypical/viral pneumonia. EKG demonstrated sinus bradycardia of 55 without ischemic changes. Pt was treated with Solu-Medrol, Mag sulfate, and ceftriaxone. Pt will be admitted to the hospital for treatment and further evaluation of acute hypoxic respiratory failure in the setting of viral pneumonitis secondary to recent COVID infection in an immunocompromised patient with ILD. Acute hypoxic respiratory failure due to Covid-19 pneumonitis Patient was treated with systemic steroids and IV antibiotics. No PE on CTA. He was seen by pulmonology during hospitalization. Patient's oxygen requirement slowly improved. He will be discharged with prednisone taper as well as to complete a course of antibiotics. He was evaluated by respiratory therapy for home oxygen evaluation and was deemed to require 3 L of oxygen at rest and 6 L with ambulation. He will be discharged home with visiting nurses to monitor oxygen saturation upon discharge. He is encouraged to follow-up with pulmonology as an outpatient. Physical therapy evaluated him and recommended pulmonary rehab however patient has opted to return home. 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 Outpatient follow-up with specialists Time Attestation Discharge Coordination Time (in mins): 40 Quality: Safe Use of Opioids Does Pt have an Active Cancer Diagnosis on the Problem List?: No Quality: Stroke Does the patient have a stroke diagnosis?: No Physical Exam 2 Vital Signs: Vital Signs: Last Vital Signs Temp 98.9 F 04/30/24 07:25 Pulse 94 04/30/24 07:25 Resp 20 04/30/24 07:25 BP 167/92 H 04/30/24 07:25 Pulse Ox 88 L 04/30/24 07:25 O2 Del Method Nasal Cannula 04/30/24 07:25 O2 Flow Rate 2 04/30/24 07:25 BMI result Body Mass Index 27.1 Const: General: cooperative, comfortable, no acute distress and alert Nutritional Appearance: average body habitus Orientation/consciousness: patient oriented x3 Cardio: Rate: regular rate GI: Inspection: No distended Palpation (GI): Soft to palpation and nontender Neuro: General: patient oriented x3, moves all extremities and CN's II-XI intact bilaterally Extrem: General: Yes no pedal edema Discharge Plan Discharge Anticipated Discharge Date/Time: 04/30/24 14:01 Patient Disposition: Home Health Service Discharge Diagnosis: Acute respiratory failure with hypoxia due to COVID-19 infection with underlying ILD Referrals: [facility] [Outside] - 1 Week Rudolph Kumari FR[employer] WE[employer] DESIGN[employer] [Primary Care Provider] - 1 Week Chato Rowley MD [Physician] - 1 Week Discharge Medications: New cefuroxime axetil 500 mg tablet 500 mg PO Q12H 4 Days Qty: 8 0RF prednisone 10 mg tablet See Taper PO DIRECTED Qty: 50 0RF Taper: Prednisone 40 mg daily for 7 Days and 0 Hour 30 mg daily for 7 Days and 0 Hour Rx Instructions: see taper instructions Continued Rituxan IV Q6M Discontinued amoxicillin-pot clavulanate 875-125 mg tablet 1 tab PO BID Qty: 14 0RF Rx Instructions: END DATE: 04/20/24 @2100 doxycycline hyclate 100 mg capsule 100 mg PO BID Qty: 10 0RF Rx Instructions: END DATE: 04/18/24 @2100 prednisone 20 mg tablet 40 mg PO DAILY Discharge Orders: Discharge Order (Routine); Ordered 04/30/24 Ordered By: Sara Garnica Activity on Discharge: As tolerated Stand Alone Forms: Patient Portal Discharge page Print Language: [place] Care Plan Goals: See below Health Concerns: Acute respiratory failure with hypoxia due to COVID-19 Plan of Treatment: Complete course of antibiotics as prescribed Recommend 40 mg of prednisone for the next 7 days followed by 30 mg for 7 days. call to schedule Follow-up with pulmonology for further titration of steroids Assessment: See discharge summary
--- NOTE | 2024-04-30 14:10 | P.F2F_ITS ---
Service Date Service Date: 04/30/24 Encounter Date of encounter: 04/30/24 Reasons for Services Signs and symptoms assessed: Needs residential for monitoring of oxygen saturation, new home oxygen Reason for residential: CV/CP assess and/or care MD Overseeing Care: Rudolph Kumari Homebound: Leaving the home is medically contraindicated at this time without the asist of a device and/or another person due th the listed conditions above and below. Reason homebound: shortness of breath with minimal effort Certification: Based on the above findings, I certify that this patient is confined to the home and needs intermittent residential care, physical therapy and/or speech therapy, or continues to need occupational therapy. The patient is under my care, and I have initiated the establishment of the plan of care. The patient will be followed by a physician who will periodically review the plan of care. Time Spent With Patient Time: Total time managing care of this patient today ____ minutes.
[2024-04-30 15:24] VITALS: BP 175/86; PULSE 52; RESP 18; TEMP 37.2; O2SAT 95
--- NOTE | 2024-04-30 16:28 | MHC.CM.PN ---
Pt has been medically cleared for DC, he will go home via BLS due to new home O2, and have home care services from [facility]
[2024-04-30 20:00] VITALS: BP 140/78; PULSE 65; RESP 17; TEMP 36.9; O2SAT 91
== END 2024-04-30 20:20 | disposition home health service (06) | DRG 177 ==
LOC: HO.ED 17:44 → HO.EDOVER 18:23 → HO.S3 04-19 07:30 → HO.EDOVER 04-19 08:49 → HO.IMC 04-19 19:14
PROVIDERS: Family Medicine; Hospitalist; Physician Assistant Medical; Admitting Provider Student in an Organized Health Care Education/Training Program; Emergency Provider Emergency Medicine Emergency Medical Services; PCP Nurse Practitioner Family; Visit Provider Physician Assistant Medical
DX: U07.1 COVID-19 (principal); J12.82 Pneumonia due to coronavirus disease 2019; J80 Acute respiratory distress syndrome; D84.9 Immunodeficiency, unspecified; E87.21 Acute metabolic acidosis; J99 Respiratory disorders in diseases classified elsewhere; M06.00 Rheumatoid arthritis without rheumatoid factor, unspecified site; Z85.72 Personal history of non-Hodgkin lymphomas; Z92.3 Personal history of irradiation; Z79.52 Long term (current) use of systemic steroids; Z79.620 Long term (current) use of immunosuppressive biologic; Z79.899 Other long term (current) drug therapy
CPT/HCPCS: 36415; 71045; 71046; 71260; 71275; 80048; 80053; 81001; 82784; 82803; 83605; 83735; 83880; 84145; 84484; 85025; 85027; 86140; 87635; 93005; 97110; 97116; 97161; 97530; 99285; J0696; J1200; J1569; J1650; J2919; J3475; Q9967

== ENCOUNTER → 2024-04-18 18:10 | Outpatient (BNV) | payer MEDICARE, SELFPAY | PROVIDERS: Admitting Provider Student in an Organized Health Care Education/Training Program; Emergency Provider Emergency Medicine Emergency Medical Services; PCP Nurse Practitioner Family; Visit Provider Internal Medicine Pulmonary Disease | DX: U07.1 COVID-19 (principal); J80 Acute respiratory distress syndrome; J12.9 Viral pneumonia, unspecified; J18.9 Pneumonia, unspecified organism | CPT/HCPCS: 99232; 99233 ==

== ENCOUNTER → 2024-04-18 18:10 | Outpatient (BNV) | payer MEDICARE, SELFPAY | PROVIDERS: Admitting Provider Student in an Organized Health Care Education/Training Program; Emergency Provider Emergency Medicine Emergency Medical Services; PCP Nurse Practitioner Family; Visit Provider Student in an Organized Health Care Education/Training Program | DX: J12.82 Pneumonia due to coronavirus disease 2019 (principal); J96.01 Acute respiratory failure with hypoxia | CPT/HCPCS: 99223; 99232; 99233; 99239; G0180 ==

== ENCOUNTER → 2024-05-06 15:18 | Outpatient (BNVA) | payer MEDICARE, SELFPAY | PROVIDERS: PCP Nurse Practitioner Family; Visit Provider Student in an Organized Health Care Education/Training Program ==

== ENCOUNTER 2024-05-06 16:11 | Emergency (ER) | payer MEDICARE, SELFPAY ==
--- NOTE | 2024-05-06 16:56 | ED.GENADULT ---
HPI - General Adult General Stated complaint: Ran out of oxygen Related Data Previous Rx's ?Medication ?Instructions ?Recorded prednisone 10 mg tablet See Taper PO DIRECTED #50 tabs 04/30/24 Allergies Allergy/AdvReac Type Severity Reaction Status Date / Time morphine [MORPHINE] Allergy Intermediate HR DROPPED Verified 05/06/24 15:35 azithromycin AdvReac Intermediate Joint Pain Verified 05/06/24 15:35 clarithromycin [Prevpac] AdvReac Intermediate depression Verified 05/06/24 15:35 (after taking for a few days) - includes most PPI lansoprazole [Prevpac] AdvReac Intermediate depression Verified 05/06/24 15:35 (after taking for a few days) - includes most PPI ranitidine [Zantac] AdvReac Intermediate depression Verified 05/06/24 15:35 (after taking for a few months) Prilosec AdvReac Intermediate depression Uncoded 04/14/24 09:00 (after taking for a few days) - includes most PPI PMFSH Past Medical History Medical History (Updated 05/07/24 @ 11:33 by NELSON Gardiner) Pneumonia Pleural effusion Rheumatoid arthritis ILD (interstitial lung disease) Right knee meniscal tear Abnormal biliary HIDA scan Kidney stones [place] of foot Bradycardia Left shoulder pain Normal colonoscopy (~08/2011) Lumbar spondylosis Impaired fasting glucose Dyslipidemia Benign essential hypertension History of gastric ulcer Gastritis Internal hemorrhoids Diverticulosis Benign prostatic hyperplasia Alopecia (capitis) totalis History of Lyme disease (~2009) History of hepatitis C Surgical History History of liver biopsy History of prostate surgery Status post left rotator cuff repair (~11/2020) History of esophagogastroduodenoscopy (EGD) (~06/2019) History of medial meniscus repair of left knee (~12/2016) Hx laparoscopic cholecystectomy (~10/2012) History of right inguinal hernia repair (~2011) History of surgery on right wrist Family History Family History Father Gastric cancer Prostate cancer Family/Other Pancreas cancer Brother Skin cancer Social History Social History Household Members: Other Household Members Other:: mother Housing: House Are you a primary career services representative to a significant other at home: No Do you presently have visiting nurse or other home services: No Alcohol intake: never Patient Tobacco Use Status: Never used Tobacco e-Cigarette/Vaping Use: Never Used Second Hand Smoke Exposure: No Advance Directives: No Advance Directives Information Provided: No service: Yes Current occupational status: retired Cognitive needs: No Hearing needs: No Vision needs: Yes Course Course Course Narrative: Patient's left before could be officially triage by myself and triage nurse. Patient did not want to wait to be triage. As per respiratory therapist Castillo patient's needed an oxygen tank. Patient informed him he was at an doctor appointment and was sent to the ED just because his oxygen tank is low and about to run out.. Patient is asymptomatic and just need oxygen Tank. Patient given oxygen tank by Respiratory Therapist Castillo. Patient left before filling out AMA papers and left before officialy being examined and triaged bymyself and triage nurse. Patient left ED before we could check his vitals. Discharge Plan Discharge Clinical Impression: Chronic dyspnea Patient Disposition: Left Against Medical Advice Prescriptions: No Action prednisone 10 mg tablet See Taper PO DIRECTED Qty: 50 0RF Taper: Prednisone 40 mg daily for 7 Days and 0 Hour 30 mg daily for 7 Days and 0 Hour Rx Instructions: see taper instructions Stand Alone Forms: Against Medical Advice Discharge Date/Time: 05/06/24 18:40 Print Language: Luxembourgish
== END 2024-05-06 18:40 | disposition left against medical advice (07) ==
PROVIDERS: Emergency Provider Emergency Medicine; PCP Nurse Practitioner Family
DX: R06.00 Dyspnea, unspecified (principal)

== ENCOUNTER 2024-05-10 12:28 | Outpatient (AMB) | payer MEDICARE, SELFPAY ==
--- NOTE | 2024-05-10 12:41 | A.OFFPC_ITS ---
Vital Signs 05/10/24 12:43 Height 5 ft 9 in Weight 178 lb 6 oz BMI 26.3 BP 132/68 Blood Pressure Location Rt brachial Position Sitting Pulse 95 Pulse Source Pulse Oximeter Pulse Oximetry (%) 92 Oxygen Delivery Method Room Air Intake Visit Reasons: HDF ~ Post hospital discharge FU Allergies morphine [MORPHINE] Allergy (Intermediate, Verified 05/10/24 14:24) HR DROPPED azithromycin Adverse Reaction (Intermediate, Verified 05/10/24 14:24) Joint Pain clarithromycin [Prevpac] Adverse Reaction (Intermediate, Verified 05/10/24 14:24) depression (after taking for a few days) - includes most PPI lansoprazole [Prevpac] Adverse Reaction (Intermediate, Verified 05/10/24 14:24) depression (after taking for a few days) - includes most PPI ranitidine [Zantac] Adverse Reaction (Intermediate, Verified 05/10/24 14:24) depression (after taking for a few months) Prilosec Adverse Reaction (Intermediate, Uncoded 05/10/24 14:24) depression (after taking for a few days) - includes most PPI Tobacco use date assessed: 05/10/24 Fall risk assessment: No Falls in past year Last assessed Fall Risk: 05/10/24 Dental Screening Dental Screen Date: 05/10/24 Did you have a dental visit in the last 12 months?: No Did you have a dental problem in the last 6 months where you did not have access to dental care?: No Was dental information given to patient?: No HPI HDF ~ Post hospital discharge FU HPI Details Pt was seen in the ER on 04/18 c/o shortness of breath. He was on antibiotics for pneumonia at the time. Pt was hypoxic on room air at 88% and at 92% on 2 liters. His initial lactic acid was 2.6, repeat 1.3. UA showed no acute process. Chest XR showed continued increase in multifocal bilateral airspace opacities with a possible developing cavitary lesion for which the radiologist recommended obtaining a chest CT. Chest CT showed patchy peribronchovascular and subpleural groundglass involving all lobes suggestion of PNA. EKG showed sinus bradycardia of 55 without ischemic changes. Pt was treated with solu-medrol, mag sulfate, and ceftriaxone. Pt was admitted for treatment and further evaluation of acute hypoxic respiratory failure in the setting of viral pneumonitis secondary to recent COVID infection in an immunocompromised patient with ILD. He was treated with systemic steroids and IV antibiotics. CTA was negative for PE. Pt was seen by respiratory therapy who recommended 3L of oxygen at rest and 6L with ambulation. Pt was d/c on cefuroxime and prednisone taper. It was recommended that he follow up with pulmonology outpatient. Today, pt is on RA, sating in lower to mid 90s, a lot less SOB noticed from our phone conversation just 4 days ago. Pt seems in good spirits today, breathing on his own, though has a portable tank of o2 right next to him with a NC for just in case . Pt reports still having some congestion, phelgm is clear, getting up intermittently. Denies fever, chills, and chest pain. Follow up this friday with pulmonary [facility] Medical History (Updated 05/08/24 @ 00:03 by Meka Madrid) Pneumonia Pleural effusion Rheumatoid arthritis ILD (interstitial lung disease) Right knee meniscal tear Abnormal biliary HIDA scan Kidney stones [place] of foot Bradycardia Left shoulder pain Normal colonoscopy (~08/2011) Lumbar spondylosis Impaired fasting glucose Dyslipidemia Benign essential hypertension History of gastric ulcer Gastritis Internal hemorrhoids Diverticulosis Benign prostatic hyperplasia Alopecia (capitis) totalis History of Lyme disease (~2009) History of hepatitis C Surgical History History of liver biopsy History of prostate surgery Status post left rotator cuff repair (~11/2020) History of esophagogastroduodenoscopy (EGD) (~06/2019) History of medial meniscus repair of left knee (~12/2016) Hx laparoscopic cholecystectomy (~10/2012) History of right inguinal hernia repair (~2011) History of surgery on right wrist Family History Father Gastric cancer Prostate cancer Family/Other Pancreas cancer Brother Skin cancer Social History Household Members: Other Household Members Other:: mother Housing: House Are you a primary rn critical care to a significant other at home: No Do you presently have visiting nurse or other home services: No Alcohol intake: never Patient Tobacco Use Status: Never used Tobacco e-Cigarette/Vaping Use: Never Used Second Hand Smoke Exposure: No service: Yes Current occupational status: retired Cognitive needs: No Hearing needs: No Vision needs: Yes Questionnaire PHQ-9 Over the last 2 weeks, how often have you been bothered by any of the following problems? 1. Little interest or pleasure in doing things: not at all 2. Feeling down, depressed, or hopeless: not at all 3. Trouble falling or staying asleep, or sleeping too much: more than half the days 4. Feeling tired or having little energy: not at all 5. Poor appetite or overeating: not at all 6. Feeling bad about yourself - or that you are a failure or have let yourself or your family down: not at all 7. Trouble concentrating on things, such as reading the newspaper or watching television: not at all 8. Moving or speaking so slowly that other people could have noticed. Or the opposite - being so fidgety or restless that you have been moving around a lot more than usual: not at all 9. Thoughts that you would be better off or of hurting yourself in some way: not at all Total score: 2 Depression Screening Interpretation: Negative Depression Screening Done: Yes 97041 - PHQ-9 Billing: Yes Source: Developed by Drs. Joshua Carreon, Erika Gomez, Filipe Hein and colleagues, with an educational paige from [employer]. Thrive Questionnaire Date Thrive assessed: 05/10/24 I am a: Patient What is your living situation today?: I choose not to answer this question Within the past 12 months, did the food you bought not last and you didn't have the money to get more?: I choose not to answer this question Within the past 12 months, did you worry whether your food would run out before you got money to buy more?: I choose not to answer this question Do you have trouble paying for medicines?: I choose not to answer this question Do you have trouble getting transportation to medical appointments?: I choose not to answer this question Do you have trouble paying your heating and electricity bill?: I choose not to answer this question Do you have trouble taking care of your child, family member or friend?: I choose not to answer this question Do you have trouble with day-to-day activities such as bathing, preparing meals, shopping, managing finances, etc.?: I choose not to answer this question Are you currently unemployed and looking for a job?: I choose not to answer this question Are you interested in more education?: I choose not to answer this question Please select the resources that you would like help with: None Currently or been in a relationship where the following occur: I choose not to answer THRIVE Score: 0 AUDIT C Alcohol Use Questionnaire (AUDIT-C) 1. How often do you have a drink containing alcohol?: Never 3. How often do you have six or more drinks on one occasion?: Never Total Score: 0 Score Reviewed/Action Taken: Yes BLAIR-7 AMB Questionnaire BLAIR-7 Date BLAIR - 7 assessed: 05/10/24 Source: Developed by Drs. Joshua Carreon, Erika Gomez, Filipe Hein and colleagues, with an educational paige from [employer]. Review of Systems Const Reports as per HPI Physical exam (Primary Care) Vital Signs: Last Vital Signs Pulse 95 05/10/24 12:43 BP 132/68 05/10/24 12:43 Pulse Ox 92 05/10/24 12:43 Oxygen Delivery Method Room Air 05/10/24 12:43 BMI result Body Mass Index 26.3 Tobacco/Smoking Status: Tobacco use Status Tobacco use date assessed 05/10/24 05/10/24 12:45 Patient Tobacco Use Status Never used Tobacco 05/10/24 12:42 e-Cigarette/Vaping Use Never Used 05/10/24 12:42 PHQ-9: PHQ-9 Score PHQ-9: Total score 2 05/10/24 12:51 Depression Screening Interpretation: Negative Thrive Assessment: Date of Thrive Assessment Date Thrive assessed 05/10/24 05/10/24 12:45 Currently or been in a relationship where the following occur: I choose not to answer Const General: cooperative Orientation/consciousness: patient oriented x3 Resp Other: lungs fairly clear, slightly diminished to bases Effort & Inspection: normal respiratory effort and able to speak in complete sentences Cardio Rate: regular rate Rhythm: regular rhythm Heart sounds: S1 normal heart sound present and S2 normal heart sound present Neuro General: patient oriented x3 Psych Appearance: grossly normal Mental Status: mental status grossly normal Speech and movement: Normal speech and movement present Affect: normal affect Attitude: cooperative Thought process: Normal thought process present Thought content: Normal thought content present Insight: Good insight present (Psych) Judgement: Good judgement present (Psych) Assessment and Plan Assessment & Plan (1) Acute respiratory distress syndrome (ARDS) due to COVID-19 virus: Code(s): U07.1 - COVID-19; J80 - Acute respiratory distress syndrome (2) Pneumonia: Code(s): J18.9 - Pneumonia, unspecified organism Plan: doing much better, seeing pulmonary this friday (4 days) Plan The patient agreed to the use of a biomedical engineering internship for this encounter. Scribed for LIZETTE Gold-GEOVANI by Yaa Penaloza biomedical engineering internship, on 05/10/2024 at 12:50 EST. Coding Level of Care Code Est Pt Level 4 (62017) Diagnoses Acute respiratory distress syndrome (ARDS) due to COVID-19 virus U07.1; J80 Pneumonia J18.9
[2024-05-10 12:43] VITALS: BP 132/68; PULSE 95; O2SAT 92; BMI 26.3
== END 2024-05-10 13:18 | disposition home or self-care (01) ==
PROVIDERS: PCP Nurse Practitioner Family; Visit Provider Nurse Practitioner Family
DX: U07.1 COVID-19 (principal); J80 Acute respiratory distress syndrome; J18.9 Pneumonia, unspecified organism

== ENCOUNTER → 2024-05-10 12:28 | Outpatient (BNVA) | payer MEDICARE, SELFPAY | PROVIDERS: PCP Nurse Practitioner Family; Visit Provider Nurse Practitioner Family | DX: U07.1 COVID-19 (principal); J80 Acute respiratory distress syndrome; J18.9 Pneumonia, unspecified organism | CPT/HCPCS: 99212 ==

== ENCOUNTER 2024-05-14 10:26 | Outpatient (AMB) | payer MEDICARE, SELFPAY ==
--- NOTE | 2024-05-14 10:27 | MHC.OFFVIS ---
Vital Signs 05/14/24 10:29 05/14/24 10:34 Height 5 ft 9 in Weight 181 lb 6 oz BMI 26.8 BP 130/82 Blood Pressure Location Rt brachial Position Sitting Pulse 81 71 Pulse Source Pulse Oximeter Pulse Oximeter Pulse Oximetry (%) 87 L 95 Oxygen Delivery Method Room Air Nasal Cannula Oxygen Flow Rate 3 Intake Visit Reasons: Covid Pneumonia ([facility] [place]) - Dr. Rowley Allergies morphine [MORPHINE] Allergy (Intermediate, Verified 05/14/24 10:36) HR DROPPED azithromycin Adverse Reaction (Intermediate, Verified 05/14/24 10:36) Joint Pain clarithromycin [Prevpac] Adverse Reaction (Intermediate, Verified 05/14/24 10:36) depression (after taking for a few days) - includes most PPI lansoprazole [Prevpac] Adverse Reaction (Intermediate, Verified 05/14/24 10:36) depression (after taking for a few days) - includes most PPI ranitidine [Zantac] Adverse Reaction (Intermediate, Verified 05/14/24 10:36) depression (after taking for a few months) Prilosec Adverse Reaction (Intermediate, Uncoded 05/14/24 10:36) depression (after taking for a few days) - includes most PPI HPI HPI Covid Pneumonia ([facility] [place]) - Dr. Rowley: Details: Chad is a pleasant 69 year old male, never smoker, with h/o gastric MALT lymphoma s/p radiation 2021, seronegative RA on Rituximab q 6 months, ILD, and h/o cryptogenic organizing pneumonia. He is under the care of Dr. Rowley and presents today for a hospital follow up. He was admitted to [facility] 04/18-04/30 for acute hypoxic respiratory failure in the setting of viral pneumonitis secondary to recent COVID infection in an immunocompromised patient with ILD. CTA negative for PE however did reveal diffuse peribronchovascular and subpleural ground-glass involving all lobes suggestive of atypical/viral pneumonia. He was treated with ceftriaxone, doxycyline, IV steroids, magnesium and nebs. Upon discharge he continued to require supplemental oxygen, 3L at rest and 6 L with ambulation. He was discharged with prednisone 40 mg x 7 days and 30 mg x 7 days. He reports improvements overall since discharge. He does note that for the last three days he has not used supplemental oxygen and checking O2 frequently. He reports O2 on RA has dropped to 82 with exertion. At times while at rest can maintain 93% on RA. He continues to report dyspnea on exertion. Denies cough, chest tightness or wheezing. [facility] Medical History (Updated 05/14/24 @ 10:36 by Ana Altamirano NP) Pneumonia Pleural effusion Rheumatoid arthritis ILD (interstitial lung disease) Right knee meniscal tear Abnormal biliary HIDA scan Kidney stones Cutler of foot Bradycardia Left shoulder pain Normal colonoscopy (~08/2011) Lumbar spondylosis Impaired fasting glucose Dyslipidemia Benign essential hypertension History of gastric ulcer Gastritis Internal hemorrhoids Diverticulosis Benign prostatic hyperplasia Alopecia (capitis) totalis History of Lyme disease (~2009) History of hepatitis C Surgical History History of liver biopsy History of prostate surgery Status post left rotator cuff repair (~11/2020) History of esophagogastroduodenoscopy (EGD) (~06/2019) History of medial meniscus repair of left knee (~12/2016) Hx laparoscopic cholecystectomy (~10/2012) History of right inguinal hernia repair (~2011) History of surgery on right wrist Family History Father Gastric cancer Prostate cancer Family/Other Pancreas cancer Brother Skin cancer Social History Household Members: Other Household Members Other:: mother Housing: House Are you a primary complex care nurse practitioner to a significant other at home: No Do you presently have visiting nurse or other home services: No Alcohol intake: never Patient Tobacco Use Status: Never used Tobacco e-Cigarette/Vaping Use: Never Used Second Hand Smoke Exposure: No service: Yes Current occupational status: retired Cognitive needs: No Hearing needs: No Vision needs: Yes Review of Systems Const Denies chills, Denies excessive sweating, Denies fever(s), Denies headache(s) and Denies night sweats Eyes Denies dry eyes, Denies irritation and Denies itchy eyes ENT Reports Normal hearing present, Denies headache(s), Denies nasal congestion, Denies nasal discharge, Denies post nasal drip and Denies sore throat Card Denies chest pain, Denies chest pain at rest, Denies chest pain with activity, Denies claudication, Denies leg edema, Denies orthopnea and Denies paroxysmal nocturnal dyspnea Resp Denies chest congestion, Denies cough, Denies excessive phlegm production, Denies pain on inspiration, Denies pain with cough, Denies stridor and Denies wheezing Neuro Reports Normal hearing present and Denies headache(s) Endo Denies excessive sweating Edwin/Lymph Denies lymphadenopathy Aller/Immun Denies itchy eyes, Denies seasonal rhinorrhea and Denies wheezing Physical Exam Vital Signs: Last Vital Signs Pulse 71 05/14/24 10:34 BP 130/82 05/14/24 10:29 Pulse Ox 95 05/14/24 10:34 Oxygen Delivery Method Nasal Cannula 05/14/24 10:34 Oxygen Flow Rate 3 05/14/24 10:34 BMI result Body Mass Index 26.8 Const General: cooperative, comfortable, no acute distress and alert Orientation/consciousness: patient oriented x3 Limitations: no limitations HEENT Head: Yes normal to inspection, Yes normocephalic and Yes atraumatic Ears: hearing grossly normal bilaterally and external ears normal Eyes General: appearance normal, both eyes and all related structures Eyelids: Yes eyelids normal Sclerae: sclerae normal EOM: EOMs intact bilaterally Neck Neck: Yes normal visual inspection and Yes no lymphadenopathy Lymphatic: no lymphadenopathy noted Chest Chest palpation & inspection: normal inspection of the chest Resp Other: bibasilar inspiratory crackles, no expiratory wheezes appreciated Effort & Inspection: normal respiratory effort, able to speak in complete sentences, no audible wheezes, no cough, no stridor, not tachypneic, no tripod positioning and no use of accessory muscles Cardio Jugular venous distension: no JVD Rate: regular rate Rhythm: regular rhythm Skin Other: warm, dry General skin exam: no rashes or lesions noted Neuro General: patient oriented x3 Cranial nerves: Yes Normal hearing present Cognition (Neuro): normal cognition Gait exam (Neuro): Normal gait present Extrem General: Yes normal to inspection, Yes capillary refill normal, Yes no clubbing, cyanosis or edema and Yes no pedal edema Psych Appearance: grossly normal and well kempt Speech and movement: Normal speech and movement present and Clear speech present Affect: normal affect Attitude: cooperative Thought process: Normal thought process present Thought content: Normal thought content present Insight: Good insight present (Psych) Judgement: Good judgement present (Psych) Results Reviewed Results Reviewed: [address] [address] [address] Scan Report Signed Patient: Chad Cotto MR#: [id number] : 1955 Acct:[id number] Age/Sex: 69 / M ADM Date: 04/18/24 Loc: [facility] 476-[address]: Juan M Moulton MD Ordering Physician: Juan M Moulton MD Date of Service: 04/22/24 Procedure(s): CT angio chest PE protocol Accession Number(s): [id number] cc: Juan M Moulton MD; Rudolph Kumari [facility]-~ EXAMINATION: CT ANGIOGRAM OF THE CHEST WITH AND WITHOUT CONTRAST (CT PULMONARY ANGIOGRAM FOR PE) CLINICAL INFORMATION: hypoxia, dyspnea, r/o PE COMPARISON: 04/18/2024 TECHNIQUE: Prior to contrast administration, noncontrast localization images were obtained. Subsequently, multidetector volumetric imaging was performed from the thoracic inlet to the pubic symphysis through the chest, abdomen, and pelvis following the administration of 65 mL Omnipaque 350 intravenous contrast. No contrast reaction reported Sagittal, coronal, and MIP oblique sagittal (through the chest only) reformatted images were obtained on the CT workstation, uploaded to PACS, and reviewed. This CT examination was performed using dose optimization techniques as appropriate, variously including the following: *Automated exposure control *Adjustment of mA and/or kV according to patient size (this includes techniques or standardized protocols for targeted exams where dose is matched to indication/reason for exam; i.e. extremities or head) *Use of iterative reconstruction technique Total exam dose-length product: 231 mGy-cm FINDINGS: QUALITY OF STUDY/CONTRAST BOLUS: Satisfactory. PULMONARY ARTERIES: No central or segmental pulmonary emboli. THORACIC AORTA: No aneurysm or dissection. LUNG: Multifocal groundglass infiltrates are seen along with coarsened reticular markings at the lung bases and scattered areas of focal consolidation are seen. Findings appear similar to 04/18/2024, but minimally worse. PLEURA: No pleural effusion or pneumothorax. MEDIASTINUM: Normal heart size. No pericardial effusion. No hilar or mediastinal lymphadenopathy. No evidence of septal bowing or right heart strain. Moderate coronary calcium. CHEST WALL/AXILLA: No axillary or internal mammary lymphadenopathy. OSSEOUS STRUCTURES: No acute or suspicious osseous abnormality. VISUALIZED ABDOMEN: There is hepatic steatosis. Status post cholecystectomy. No other abnormality in the upper abdomen. CT/CT angio chest PE protocol IMPRESSION: 1. No evidence of pulmonary emboli. 2. Multifocal groundglass infiltrates with coarsened reticular markings at the lung bases and scattered areas of focal consolidation. Findings appear similar to 04/18/2024, but minimally worse. 3. Hepatic steatosis. VTE: negative. Fleischner guidelines were followed. Electronically signed by: Kody Goss MD 04/22/2024 03:38 PM EDT RP Dictated By: Kody Goss MD Signed By: <Electronically signed by Kody Goss MD in OV> 04/22/24 1538 DD/ 1213 TD/TT: 04/22/24 1309 [employer]ushes Assembler: ROBIN Assessment & Plan Assessment & Plan (1) ILD (interstitial lung disease): Code(s): J84.9 - Interstitial pulmonary disease, unspecified Category: Medical (2) History of acute respiratory distress syndrome (ARDS): Code(s): Z87.09 - Personal history of other diseases of the respiratory system Category: Medical Plan Will repeat CXR to assess for improvements since discharge. Will continue prednisone taper as patient notes overall improvements. Patient requesting slow taper as his Rituximab infusion is delayed and concerned about RA flare during this time. He is aware to call if there are any changes to respiratory symptoms as he is tapering. Discussed at length the severity of symptoms/findings during hospitalization and the recovery process will likely take quite some time. Advised patient to continue to monitor oxygen, maintaining >92% and use supplemental oxygen 3L at rest and 6L with exertion until close follow up. Will likely have 6MWT performed at that time. He has a follow up scheduled with Dr. Rowley in two weeks. All questions were answered and patient is in agreement of plan. Orders: Orders XR chest 2V Today J18.9 - Pneumonia, unspecified organism Medications: New prednisone see taper instructions 20 mg x 7 days, 15 mg x 7 days, 10 mg x 7 days, 5 mg x 7 days 10 mg PO DIRECTED 33 tabs 0RF Coding Level of Care Code Est Pt Level 4 (67411) Complex EM visit Add On G2211 Diagnoses ILD (interstitial lung disease) J84.9 History of acute respiratory distress syndrome (ARDS) Z87.09
[2024-05-14 10:29] VITALS: BP 130/82; PULSE 81; O2SAT 87; BMI 26.8
[2024-05-14 10:34] VITALS: PULSE 71; O2SAT 95
== END 2024-05-14 11:18 | disposition home or self-care (01) ==
PROVIDERS: PCP Nurse Practitioner Family; Visit Provider Nurse Practitioner Family
DX: J84.9 Interstitial pulmonary disease, unspecified (principal); Z87.09 Personal history of other diseases of the respiratory system
CPT/HCPCS: 99214; G2211

== ENCOUNTER → 2024-05-14 10:26 | Outpatient (BNVA) | payer MEDICARE, SELFPAY | PROVIDERS: PCP Nurse Practitioner Family; Visit Provider Nurse Practitioner Family | DX: J84.9 Interstitial pulmonary disease, unspecified (principal); J12.82 Pneumonia due to coronavirus disease 2019; Z87.09 Personal history of other diseases of the respiratory system; Z86.16 Personal history of COVID-19 | CPT/HCPCS: 99212 ==

== ENCOUNTER 2024-05-17 07:30 | Outpatient (REF) | payer MEDICARE, SELFPAY ==
--- NOTE | ~2024-05-17 | XR_ITS ---
EXAMINATION: XR CHEST CLINICAL INFORMATION: Pneumonia unspecified organism COMPARISON: 04/28/2024 TECHNIQUE: 2 views of the chest were obtained. FINDINGS: There is no gross pneumothorax. Lung volumes are low. Stable cardiomediastinal silhouette. Persistent bilateral patchy airspace opacities and prominent interstitial opacities with moderate interval improvement. Degenerative changes in the thoracic spine. No significant pleural effusion. XR/XR chest 2V IMPRESSION: Persistent bilateral patchy airspace opacities and prominent interstitial opacities with moderate interval improvement. This study was presented today 05/17/2024 for interpretation. Stat results provided at this time as requested by referring provider. Electronically signed by: Sherly Vivar MD 05/17/2024 08:23 AM EDT RP
== END 2024-05-17 07:31 | disposition home or self-care (01) ==
LOC: HO.XRAY 07:30
PROVIDERS: PCP Nurse Practitioner Family; Visit Provider Nurse Practitioner Family
DX: J18.9 Pneumonia, unspecified organism (principal)
CPT/HCPCS: 71046

== ENCOUNTER 2024-05-18 06:46 | Emergency (ER) | payer MEDICARE, SELFPAY ==
[2024-05-18] VITALS (7 sets, daily range): BP systolic 131–173; BP diastolic 73–88; PULSE 56–76; RESP 10–22; TEMP 36.4–36.7; O2SAT 94–99; BMI 26.4
--- NOTE | ~2024-05-18 | CT_ITS ---
EXAMINATION: CT HEAD WITHOUT CONTRAST CLINICAL INFORMATION: Headaches and hypertension COMPARISON: None available. TECHNIQUE: Contiguous axial imaging was performed from the skull base to vertex without intravenous administration of contrast. This CT examination was performed using dose optimization techniques as appropriate, variously including the following: *Automated exposure control *Adjustment of mA and/or kV according to patient size (this includes techniques or standardized protocols for targeted exams where dose is matched to indication/reason for exam; i.e. extremities or head) *Use of iterative reconstruction technique DLP: 706 mGy-cm FINDINGS: There is prominence to the sulci and ventricles with moderate deep white matter gliosis. Old lacunar observed in the right external capsule extending to the deep white matter. No evidence for intra or extra-axial fluid collection or hemorrhage, mass or mass effect. Calvarium intact. Atherosclerotic calcification observed within the carotid siphons. Mild lobular mucosal thickening observed within the sphenoid sinuses. CT/CT head/brain wo IV con IMPRESSION: No acute intracranial pathology. Electronically signed by: Santiago Ortiz MD 05/18/2024 10:13 AM EDT
--- NOTE | 2024-05-18 06:48 | ECG_ITS ---
Test Reason : TACHY Blood Pressure : / mmHG Vent. Rate : 064 BPM Atrial Rate : 064 BPM P-R Int : 170 ms QRS Dur : 088 ms QT Int : 404 ms P-R-T Axes : 026 -03 044 degrees QTc Int : 416 ms Normal sinus rhythm Minimal voltage criteria for LVH, may be normal variant ( R in aVL ) Borderline ECG When compared with ECG of 18-APR-2024 17:54, No significant change was found Referred By: Generic ED Physician Electronically Signed By:PAOLA FERNANDEZ MD
[2024-05-18 07:17] LABS: MANUAL DIFF FLAG NO
[2024-05-18 07:19] LABS: Basophils Percent Auto 0.6 % (0-2); Eosinophils Absolute Auto 0.1 X10*3/uL (0.0-0.4); Eosinophils Percent Auto 1.8 % (0-4); Hematocrit 39.6 % (42.0-52.0); Hemoglobin 13.6 g/dl (14.0-18.0); Imm Gran Abs Auto 0.23 X10*3/uL (0.00-0.03); Imm Gran Pct Auto 3.2 % (0.0-0.4); Lymphocytes Absolute Auto 0.9 X10*3/uL (1.2-4.9); Lymphocytes Percent Auto 12.1 % (20-40); Mean Corpuscular HGB Conc 34.3 g/dl (31.0-36.0); Mean Corpuscular Hemoglobin 30.2 pg (27.0-33.0); Mean Corpuscular Volume 87.8 fL (80.0-98.0); Mean Platelet Volume 10.2 fL (9.4-12.4); Monocytes Absolute Auto 0.8 X10*3/uL (0.1-1.2); Monocytes Percent Auto 11.4 % (2-11); Neutrophils Absolute Auto 5.1 x10*3/uL (2.0-8.3); Neutrophils Percent Auto 70.9 % (45-73); Platelet Count 171 X10*3/uL (160-400); Red Blood Count 4.51 X10*6/uL (4.60-5.80); Red Cell Distribution Width 14.8 % (11.0-16.0); White Blood Count 7.2 X10*3/uL (4.8-10.8)
[2024-05-18 07:41] LABS: Anion Gap 14 (12-20); Blood Urea Nitrogen 10 mg/dL (9-16); Calcium 9.3 mg/dL (8.4-10.2); Carbon Dioxide 27 mmol/L (22-29); Chloride 107 mmol/L (96-108); Creatinine Clr Calc Pharmacy 73.6; Estimated Glomerular Filt Rate > 60; Glucose Random 99 mg/dL (60-115); Potassium 3.8 mmol/L (3.3-5.1); Sodium 144 mmol/L (135-145)
[2024-05-18 07:49] LABS: Troponin-I High Sensitivity 13.4 ng/L (<3.5-35.0)
--- NOTE | 2024-05-18 08:46 | ED_ITS ---
HPI - General Adult General Chief complaint: Dyspnea Stated complaint: tachy Time Seen by Provider: 05/18/24 08:45 Source: patient Mode of arrival: ambulatory Limitations: no limitations History of Present Illness ED Provider: Wicho HPI narrative: Patient is a 69-year-old male with history of recent admission for ARDS, currently on home O2 3lpm at rest, 6 with exertion, HTN, ILD, gastric lymphoma presenting to the ED with complaint of elevated blood pressure readings since yesterday. Also reports a pounding sensation in his head yesterday which he notes was not a headache. States BP readings began as 150 systolic yesterday, this morning got up to 190/100. Denies chest pain, palpitations, dyspnea. Denies blurred or double vision. Denies recent fevers. MD complaint: high blood pressure Onset (ago): day(s) Treatments prior to arrival: none Related Data Previous Rx's ?Medication ?Instructions ?Recorded prednisone 10 mg tablet See Taper PO DIRECTED #50 tabs 04/30/24 prednisone 10 mg tablet 10 mg PO DIRECTED #33 tabs 05/14/24 amlodipine 5 mg tablet 5 mg PO DAILY #14 tabs 05/18/24 Allergies Allergy/AdvReac Type Severity Reaction Status Date / Time morphine [MORPHINE] Allergy Intermediate HR DROPPED Verified 05/18/24 06:56 azithromycin AdvReac Intermediate Joint Pain Verified 05/18/24 06:56 clarithromycin [Prevpac] AdvReac Intermediate depression Verified 05/18/24 06:56 (after taking for a few days) - includes most PPI lansoprazole [Prevpac] AdvReac Intermediate depression Verified 05/18/24 06:56 (after taking for a few days) - includes most PPI ranitidine [Zantac] AdvReac Intermediate depression Verified 05/18/24 06:56 (after taking for a few months) Prilosec AdvReac Intermediate depression Uncoded 05/18/24 06:56 (after taking for a few days) - includes most PPI Review of Systems 2 Review of Systems: As per HPI. Yes all other systems are reviewed and are negative Constitutional: Constitutional: Reports as per HPI [facility] Past Medical History Medical History (Updated 05/18/24 @ 12:15 by Alanna Sands, GRICELDA) Pneumonia Pleural effusion Rheumatoid arthritis ILD (interstitial lung disease) Right knee meniscal tear Abnormal biliary HIDA scan Kidney stones [place] of foot Bradycardia Left shoulder pain Normal colonoscopy (~08/2011) Lumbar spondylosis Impaired fasting glucose Dyslipidemia Benign essential hypertension History of gastric ulcer Gastritis Internal hemorrhoids Diverticulosis Benign prostatic hyperplasia Alopecia (capitis) totalis History of Lyme disease (~2009) History of hepatitis C Surgical History History of liver biopsy History of prostate surgery Status post left rotator cuff repair (~11/2020) History of esophagogastroduodenoscopy (EGD) (~06/2019) History of medial meniscus repair of left knee (~12/2016) Hx laparoscopic cholecystectomy (~10/2012) History of right inguinal hernia repair (~2011) History of surgery on right wrist Family History Family History Father Gastric cancer Prostate cancer Family/Other Pancreas cancer Brother Skin cancer Social History Social History Household Members: Other Household Members Other:: mother Housing: House Are you a primary lawn caretaker to a significant other at home: No Do you presently have visiting nurse or other home services: No Alcohol intake: never Patient Tobacco Use Status: Never used Tobacco Smoked in Last 30 Days: No e-Cigarette/Vaping Use: Never Used Second Hand Smoke Exposure: No Use of substances other than those prescribed or required for medical reasons: No Advance Directives: Yes Advance Directives Information Provided: Yes Advance Directives on File: No service: Yes Current occupational status: retired Cognitive needs: No Hearing needs: No Vision needs: Yes Physical Exam ED Vital Signs: Vital Signs - 24 hr 05/18/24 06:53 05/18/24 08:48 05/18/24 09:32 Temperature 97.6 F 97.7 F Pulse Rate 76 66 67 Respiratory Rate 22 H 16 17 Blood Pressure 170/88 H 173/86 H 170/88 H Pulse Oximetry 94 96 96 Oxygen Delivery Method Nasal Cannula Nasal Cannula Nasal Cannula Oxygen Flow Rate 3 2 05/18/24 09:55 05/18/24 11:31 Temperature Pulse Rate 70 66 Respiratory Rate 18 20 Blood Pressure 136/74 131/73 Pulse Oximetry 99 96 Oxygen Delivery Method Nasal Cannula Nasal Cannula Oxygen Flow Rate 3 3 BMI result Body Mass Index 26.4 Vital signs have been reviewed and appear to be correct. Blood pressure elevated, improved with medication given in the ED. Heart rate normal. Respiratory rate normal. Temperature normal. Oxygen saturation normal on baseline O2. Const General: cooperative, healthy appearing and no acute distress Orientation/consciousness: oriented to person, oriented to place, oriented to time and patient oriented x3 Limitations: no limitations HENMT Head: Yes normocephalic and Yes atraumatic Ears: external ears normal General nose exam: Normal external nose present Face and sinus: Yes face symmetric Mouth: oropharynx normal and moist mucous membranes Throat: Yes uvula midline Eyes Pupils: Equal, round and reactive pupils present Neck Neck: Yes normal visual inspection and Yes supple Resp Effort & Inspection: normal respiratory effort and able to speak in complete sentences Auscultation: clear to auscultation bilaterally Cardio Rate: regular rate Rhythm: regular rhythm Heart sounds: S1 normal heart sound present and S2 normal heart sound present GI Palpation (GI): Soft to palpation and nontender Auscultation: normoactive bowel sounds General: Yes no CVA tenderness Back/Spine/Pelvis Back: no CVA tenderness Skin General skin exam: elasticity normal and turgor normal Neuro General: oriented to person, oriented to place, oriented to time, patient oriented x3, moves all extremities, no focal motor deficits and CN's II-XI intact bilaterally Cranial nerves: Yes Equal, round and reactive pupils present Cognition (Neuro): normal cognition Extrem General: Yes full ROM, Yes no pedal edema and Yes no calf tenderness Psych Mental Status: mental status grossly normal Affect: normal affect Thought process: Normal thought process present Medications Administered Discontinued Medications Generic Name Dose Route Start Last Admin Trade Name Freq PRN Reason Stop Dose Admin Amlodipine Besylate 5 mg 05/18/24 09:16 05/18/24 09:56 Amlodipine Besylate 5 Mg Tablet PO 05/18/24 09:17 5 mg ONCE ONE Administration Protocol Medical Decision Making Medical Decision Making MDM Narrative: Patient is a 69-year-old male with history of recent admission for ARDS, currently on home O2 3lpm at rest, 6 with exertion, HTN, ILD, gastric lymphoma presenting to the ED with complaint of elevated blood pressure readings since yesterday. On exam patient is awake, A+Ox3, initially hypertensive, VS otherwise WNL, afebrile, normal neurological exam without focal deficits, physical exam findings as above. Given reported symptoms and physical exam findings, initial differential includes essential hypertension. Less likely ACS, ICH but will check EKG, labs, CT head. Labs notable for no leukocytosis, slight anemia consistent with prior results, no evidence of ISSAC, slightly elevated troponin, will repeat. CT head notable for no acute abnormalities. My interpretation is in agreement with the radiologist's interpretation. BP improved with medication in the ED. No evidence of infection on UA, no proteinuria. No delta on repeat troponin. Feel patient is stable for discharge home. Patient states he feels he requires admission, discussed with patient that he does not meet admission criteria. Case discussed with Dr. Soni who also spoke with patient and advised him he does not meet admission criteria. Will start him on amlodipine, instructed him to call PCP for follow up. Return precautions discussed. Patient verbalize understanding of and agreement with plan. Differential Diagnosis Differential Diagnoses: The differential diagnosis associated with the presentation includes As per [facility]. Admission/Observation Consideration of admission/observation: Escalation of care including admission/observation considered Patient would have been admitted to the hospital had their work up had any findings where hospital admission was appropriate and their clinical presentation warranted hospital admission. Lab Data [facility] Lab Attestation statement: I reviewed the patient's lab results. As per [facility] 05/18/24 07:13 05/18/24 07:13 Labs: Lab Results 05/18/24 05/18/24 05/18/24 Range/Units 07:13 09:16 10:34 WBC 7.2 (4.8-10.8) X10*3/uL RBC 4.51 L (4.60-5.80) X10*6/uL Hgb 13.6 L (14.0-18.0) g/dl Hct 39.6 L (42.0-52.0) % MCV 87.8 (80.0-98.0) fL MCH 30.2 (27.0-33.0) pg MCHC 34.3 (31.0-36.0) g/dl RDW 14.8 (11.0-16.0) % Plt Count 171 (160-400) X10*3/uL MPV 10.2 (9.4-12.4) fL Immature Gran % (Auto) 3.2 H (0.0-0.4) % Neut % (Auto) 70.9 (45-73) % Lymph % (Auto) 12.1 L (20-40) % [place] % (Auto) 11.4 H (2-11) % Eos % (Auto) 1.8 (0-4) % Baso % (Auto) 0.6 (0-2) % Lymph # (Auto) 0.9 L (1.2-4.9) X10*3/uL [place] # (Auto) 0.8 (0.1-1.2) X10*3/uL Eos # (Auto) 0.1 (0.0-0.4) X10*3/uL Baso # (Auto) 0.0 (0.0-0.2) X10*3/uL Abs Immat Gran (auto) 0.23 H (0.00-0.03) X10*3/uL Absolute Neuts (auto) 5.1 (2.0-8.3) x10*3/uL Absolute Nucleated RBC 0.000 (0.0-0.012) X10*3/uL Nucleated RBC % (auto) 0.0 (0.0-0.2) /100WBC Sodium 144 (135-145) mmol/L Potassium 3.8 (3.3-5.1) mmol/L Chloride 107 (96-108) mmol/L Carbon Dioxide 27 (22-29) mmol/L Anion Gap 14 (12-20) BUN 10 (9-16) mg/dL Creatinine 0.92 (0.5-1.4) mg/dL Estim Creat Clear Calc 73.6 Estimated GFR > 60 Random Glucose 99 (60-115) mg/dL Calcium 9.3 D (8.4-10.2) mg/dL Troponin I High Sens 13.4 D 13.9 (<3.5-35.0) ng/L Urine Color Urine Appearance Urine pH (5.0-9.0) Ur Specific [place] (1.005-1.025) Urine Protein (Neg-Trace) mg/dL Urine Glucose (UA) (Negative) mg/dL Urine Ketones (Negative) mg/dL Urine Blood (Negative) Urine Nitrite (Negative) Ur Leukocyte Esterase (Negative) Influenza Type A (PCR) NEGATIVE (Negative) Influenza Type B (PCR) NEGATIVE (Negative) RSV RNA Qual (PCR) NEGATIVE (Negative) SARS-CoV-2 RNA (RT-PCR) NEGATIVE (Negative) 05/18/24 Range/Units 11:33 WBC (4.8-10.8) X10*3/uL RBC (4.60-5.80) X10*6/uL Hgb (14.0-18.0) g/dl Hct (42.0-52.0) % MCV (80.0-98.0) fL MCH (27.0-33.0) pg MCHC (31.0-36.0) g/dl RDW (11.0-16.0) % Plt Count (160-400) X10*3/uL MPV (9.4-12.4) fL Immature Gran % (Auto) (0.0-0.4) % Neut % (Auto) (45-73) % Lymph % (Auto) (20-40) % [place] % (Auto) (2-11) % Eos % (Auto) (0-4) % Baso % (Auto) (0-2) % Lymph # (Auto) (1.2-4.9) X10*3/uL [place] # (Auto) (0.1-1.2) X10*3/uL Eos # (Auto) (0.0-0.4) X10*3/uL Baso # (Auto) (0.0-0.2) X10*3/uL Abs Immat Gran (auto) (0.00-0.03) X10*3/uL Absolute Neuts (auto) (2.0-8.3) x10*3/uL Absolute Nucleated RBC (0.0-0.012) X10*3/uL Nucleated RBC % (auto) (0.0-0.2) /100WBC Sodium (135-145) mmol/L Potassium (3.3-5.1) mmol/L Chloride (96-108) mmol/L Carbon Dioxide (22-29) mmol/L Anion Gap (12-20) BUN (9-16) mg/dL Creatinine (0.5-1.4) mg/dL Estim Creat Clear Calc Estimated GFR Random Glucose (60-115) mg/dL Calcium (8.4-10.2) mg/dL Troponin I High Sens (<3.5-35.0) ng/L Urine Color Yellow Urine Appearance Clear Urine pH 6.0 (5.0-9.0) Ur Specific [place] 1.015 (1.005-1.025) Urine Protein Negative (Neg-Trace) mg/dL Urine Glucose (UA) Negative (Negative) mg/dL Urine Ketones Negative (Negative) mg/dL Urine Blood Negative (Negative) Urine Nitrite Negative (Negative) Ur Leukocyte Esterase Negative (Negative) Influenza Type A (PCR) (Negative) Influenza Type B (PCR) (Negative) RSV RNA Qual (PCR) (Negative) SARS-CoV-2 RNA (RT-PCR) (Negative) Independent Interpretation I performed an independent interpretation of an: EKG (normal sinus rhythm, rate 64bpm, normal WA interval and QTc, no significant change from prior) and CT Scan Interpretation: CT head shows no acute abnormalities. Radiology Impression Discussion of test interpretation with radiology: I have reviewed the radiologist's reading. Radiologist Impression: CT/CT head/brain wo IV con IMPRESSION: No acute intracranial pathology. External Record Review External record reviewed: Inpatient record, Office record and Outpatient record Prescription Management I considered prescription management with: Other Discharge Plan Discharge Clinical Impression: HTN (hypertension) Patient Disposition: Home, Self-Care Instructions: Amlodipine (By mouth), How to Take a Blood Pressure (ED), Hypertension (ED) Additional Instructions: You were evaluated in the emergency department today for high blood pressure. Your evaluation did not show evidence of medical conditions requiring emergent treatment at this time. Your blood pressure improved with medication in the ED. You are being started on this medication to take at home, it is called amlodipine. It is important that you contact your primary care provider to notify them of this new medication and schedule a follow up visit. Return to the emergency department if you develop chest pain, difficulty breathing, palpitations, severe headache, changes in vision, persistent vomiting, confusion or any other concerning symptoms. Prescriptions: New amlodipine 5 mg tablet 5 mg PO DAILY Qty: 14 0RF No Action prednisone 10 mg tablet See Taper PO DIRECTED Qty: 50 0RF Taper: Prednisone 40 mg daily for 7 Days and 0 Hour 30 mg daily for 7 Days and 0 Hour Rx Instructions: see taper instructions prednisone 10 mg tablet 10 mg PO DIRECTED Qty: 33 0RF Rx Instructions: see taper instructions 20 mg x 7 days, 15 mg x 7 days, 10 mg x 7 days, 5 mg x 7 days Print Language: Persian
[2024-05-18] MEDS: amLODIPine Besylate 5 MG TABLET PO (09:56)
[2024-05-18 09:58] LABS: Influenza A PCR NEGATIVE (Negative); Influenza B PCR NEGATIVE (Negative); Resp Syncy Virus RNA Qual PCR NEGATIVE (Negative); SARS COV2 PCR INHOUSE NEGATIVE (Negative)
[2024-05-18 11:00] LABS: Troponin-I High Sensitivity 13.9 ng/L (<3.5-35.0)
[2024-05-18 11:40] LABS: Appearance Urine Clear; Color Urine Yellow; Glucose Urine UA Negative (Negative); Leukocyte Esterase Urine Negative (Negative); Nitrite Urine Negative (Negative); Specific Gravity - Urine 1.015 (1.005-1.025); Urine Blood Negative (Negative); Urine Ketones Negative (Negative); Urine Protein Negative (Neg-Trace)
== END 2024-05-18 12:51 | disposition home or self-care (01) ==
PROVIDERS: Registered Nurse Emergency; Emergency Provider Emergency Medicine; PCP Nurse Practitioner Family
DX: R00.0 Tachycardia, unspecified (principal); R51.9 Headache, unspecified; J80 Acute respiratory distress syndrome; I10 Essential (primary) hypertension; Z99.81 Dependence on supplemental oxygen; Z79.899 Other long term (current) drug therapy; Z03.818 Encounter for observation for suspected exposure to other biological agents ruled out
CPT/HCPCS: 0241U; 36415; 70450; 80048; 81003; 84484; 85025; 93005; 99284

== ENCOUNTER → 2024-05-18 06:48 | Outpatient (BNV) | payer MEDICARE, SELFPAY | PROVIDERS: Emergency Provider Emergency Medicine; PCP Nurse Practitioner Family; Visit Provider Internal Medicine Cardiovascular Disease | DX: R06.02 Shortness of breath (principal) | CPT/HCPCS: 93010 ==

== ENCOUNTER 2024-05-19 10:03 | Emergency (ER) | payer MEDICARE, SELFPAY ==
--- NOTE | ~2024-05-19 | XR_ITS ---
EXAMINATION: XR CHEST CLINICAL INFORMATION: Desaturation COMPARISON: May 17, 2024 and April 29, 2024 TECHNIQUE: 2 views of the chest were obtained. FINDINGS: There is no interval change since 2 previous studies in appearance of low volume lungs with multifocal bilateral patchy airspace disease and interstitial prominence. Cardiomediastinal silhouette is normal and there is no pleural effusion. XR/XR chest 2V IMPRESSION: No interval change Electronically signed by: Emanuel Lira MD 05/19/2024 10:50 AM EDT
[2024-05-19 10:18] VITALS: BP 132/79; PULSE 87; RESP 16; TEMP 37; O2SAT 93; BMI 26.7
--- NOTE | 2024-05-19 13:43 | PC.RT ---
Mr. Cotto is very know n to me in Respiratory .I spoke with Mr. Cotto out in the ED waiting room. He is saying he is unable to catch his breath when he is at home ambulating. His 02 script says 3l at rest and 6 with ambulation. Mr. Cotto is walking from one to another without his oxygen turned up to 6 Liters and he is getting winded very easily and he is having a hard time recovering and his sats in the 70's-80's. He has a long oxygen connecting tubing in the house therefore he cannot increase it to 6 liters when he is ambulating. I told him he might have to use his portable oxygen and turn it up to 6 liters and rest for a few minuted then ambulate. Mr. Cotto was in wheelchair in the waiting room with a Sat of 95% on 3liters and a HR 89. no resp distress noted. CXR done.
--- NOTE | 2024-05-19 15:50 | ECG_ITS ---
Test Reason : SOB Blood Pressure : / mmHG Vent. Rate : 075 BPM Atrial Rate : 075 BPM P-R Int : 156 ms QRS Dur : 086 ms QT Int : 384 ms P-R-T Axes : 035 003 043 degrees QTc Int : 428 ms Sinus rhythm with Premature atrial complexes Minimal voltage criteria for LVH, may be normal variant ( R in aVL ) Borderline ECG When compared with ECG of 18-MAY-2024 06:59, Premature atrial complexes are now Present Referred By: Jeffy Kapadia Electronically Signed By:PAOLA FERNANDEZ MD
[2024-05-19 16:25] LABS: MANUAL DIFF FLAG NO
[2024-05-19 16:32] LABS: INTERNATIONAL NORM RATIO 1.1 (0.9-1.1); Prothrombin Time 12.4 SEC (10.9-12.4)
[2024-05-19 16:35] LABS: Partial Thromboplastin Time 27.2 SEC (26.0-36.8)
[2024-05-19 16:37] LABS: Basophils Percent Auto 0.2 % (0-2); Eosinophils Percent Auto 0.1 % (0-4); Hematocrit 40.7 % (42.0-52.0); Hemoglobin 14.2 g/dl (14.0-18.0); Imm Gran Abs Auto 0.26 X10*3/uL (0.00-0.03); Imm Gran Pct Auto 2.6 % (0.0-0.4); Lymphocytes Absolute Auto 0.6 X10*3/uL (1.2-4.9); Lymphocytes Percent Auto 5.9 % (20-40); Mean Corpuscular HGB Conc 34.9 g/dl (31.0-36.0); Mean Corpuscular Hemoglobin 30.2 pg (27.0-33.0); Mean Corpuscular Volume 86.6 fL (80.0-98.0); Mean Platelet Volume 10.4 fL (9.4-12.4); Monocytes Absolute Auto 0.7 X10*3/uL (0.1-1.2); Monocytes Percent Auto 6.6 % (2-11); Neutrophils Absolute Auto 8.4 x10*3/uL (2.0-8.3); Neutrophils Percent Auto 84.6 % (45-73); Platelet Count 206 X10*3/uL (160-400); Red Cell Distribution Width 14.6 % (11.0-16.0); White Blood Count 9.9 X10*3/uL (4.8-10.8)
[2024-05-19 16:48] LABS: Troponin-I High Sensitivity 11.7 ng/L (<3.5-35.0)
[2024-05-19 16:52] LABS: Alanine Aminotransferase 66 U/L (0-40); Albumin Level 4.3 g/dL (3.5-5.0); Alkaline Phosphatase 46 U/L (39-117); Anion Gap 15 (12-20); Aspartate Amino Transferase 25 U/L (5-37); Bilirubin Total 0.7 mg/dL (0.0-1.0); Blood Urea Nitrogen 11 mg/dL (9-16); Calcium 9.4 mg/dL (8.4-10.2); Carbon Dioxide 22 mmol/L (22-29); Chloride 106 mmol/L (96-108); Creatinine Clr Calc Pharmacy 78.7; Estimated Glomerular Filt Rate > 60; Glucose Random 134 mg/dL (60-115); Potassium 4.3 mmol/L (3.3-5.1); Sodium 139 mmol/L (135-145); Total Protein 7.1 g/dL (6.5-8.0)
[2024-05-19 17:12] LABS: Influenza A PCR NEGATIVE (Negative); Influenza B PCR NEGATIVE (Negative); Resp Syncy Virus RNA Qual PCR NEGATIVE (Negative); SARS COV2 PCR INHOUSE NEGATIVE (Negative)
[2024-05-19 17:13] LABS: B Type Natriuretic Peptide 41 pg/mL (<100)
[2024-05-19 18:43] VITALS: BP 175/92; PULSE 72; RESP 17; TEMP 36.5; O2SAT 98
--- NOTE | 2024-05-19 18:57 | ED_ITS ---
HPI - General Adult General Chief complaint: General Medical Stated complaint: oxygen tank problem Time Seen by Provider: 05/19/24 18:29 Source: patient Limitations: no limitations History of Present Illness ED Provider: Sylvia Farmer PA-C HPI narrative: 69-year-old male with a history ofrecent admission for ARDS, currently on home O2 3lpm at rest, 6 with exertion, HTN, ILD, gastric lymphoma , presents to ED given issues with his oxygen tank at home. Patient has a machine as well as supplemental oxygen tanks at home. He uses the tanks for ambulation. The machine is not functioning, he is not getting adequate oxygen. Related Data Previous Rx's ?Medication ?Instructions ?Recorded prednisone 10 mg tablet See Taper PO DIRECTED #50 tabs 04/30/24 prednisone 10 mg tablet 10 mg PO DIRECTED #33 tabs 05/14/24 amlodipine 5 mg tablet 5 mg PO DAILY #14 tabs 05/18/24 Allergies Allergy/AdvReac Type Severity Reaction Status Date / Time morphine [MORPHINE] Allergy Intermediate HR DROPPED Verified 05/19/24 10:20 azithromycin AdvReac Intermediate Joint Pain Verified 05/19/24 10:20 clarithromycin [Prevpac] AdvReac Intermediate depression Verified 05/19/24 10:20 (after taking for a few days) - includes most PPI lansoprazole [Prevpac] AdvReac Intermediate depression Verified 05/19/24 10:20 (after taking for a few days) - includes most PPI ranitidine [Zantac] AdvReac Intermediate depression Verified 05/19/24 10:20 (after taking for a few months) Prilosec AdvReac Intermediate depression Uncoded 05/18/24 06:56 (after taking for a few days) - includes most PPI Review of Systems 2 Review of Systems: Yes all other systems are reviewed and are negative Constitutional: Constitutional: Denies fever(s) Cardiovascular: Cardiovascular: Denies chest pain and Denies dyspnea Respiratory: Respiratory: Denies cough and Denies dyspnea Gastrointestinal: Gastrointestinal: Denies abdominal pain, Denies nausea and Denies vomiting PMF Past Medical History Attestation statement: The following information was validated with the patient. Medical History (Updated 05/19/24 @ 20:11 by NELSON Hoyos) Pneumonia Pleural effusion Rheumatoid arthritis ILD (interstitial lung disease) Right knee meniscal tear Abnormal biliary HIDA scan Kidney stones [place] of foot Bradycardia Left shoulder pain Normal colonoscopy (~08/2011) Lumbar spondylosis Impaired fasting glucose Dyslipidemia Benign essential hypertension History of gastric ulcer Gastritis Internal hemorrhoids Diverticulosis Benign prostatic hyperplasia Alopecia (capitis) totalis History of Lyme disease (~2009) History of hepatitis C Surgical History History of liver biopsy History of prostate surgery Status post left rotator cuff repair (~11/2020) History of esophagogastroduodenoscopy (EGD) (~06/2019) History of medial meniscus repair of left knee (~12/2016) Hx laparoscopic cholecystectomy (~10/2012) History of right inguinal hernia repair (~2011) History of surgery on right wrist Family History Family History Father Gastric cancer Prostate cancer Family/Other Pancreas cancer Brother Skin cancer Social History Social History Household Members: Other Household Members Other:: mother Housing: House Are you a primary health care aide to a significant other at home: No Do you presently have visiting nurse or other home services: No Alcohol intake: never Patient Tobacco Use Status: Never used Tobacco e-Cigarette/Vaping Use: Never Used Second Hand Smoke Exposure: No Advance Directives Date on File: 05/03/24 service: Yes Current occupational status: retired Cognitive needs: No Hearing needs: No Vision needs: Yes Physical Exam ED Vital Signs: Vital Signs - 24 hr 05/19/24 10:18 05/19/24 18:43 05/19/24 19:24 Temperature 98.6 F 97.7 F Pulse Rate 87 72 Respiratory Rate 16 17 Blood Pressure 132/79 175/92 H 145/85 H Pulse Oximetry 93 98 Oxygen Delivery Method Nasal Cannula Nasal Cannula Oxygen Flow Rate 3 05/19/24 19:39 Temperature 97.5 F Pulse Rate 71 Respiratory Rate 18 Blood Pressure 120/76 Pulse Oximetry 98 Oxygen Delivery Method Room Air Oxygen Flow Rate BMI result Body Mass Index 26.7 Const Other: Alert, overall well in appearance Orientation/consciousness: patient oriented x3 Resp Effort & Inspection: normal respiratory effort Cardio Other: Normal peripheral perfusion Skin Other: Warm dry no rash Neuro General: patient oriented x3, no focal motor deficits and CN's II-XI intact bilaterally Psych Other: calm cooperative Medications Administered Discontinued Medications Generic Name Dose Route Start Last Admin Trade Name Dwayne PRN Reason Stop Dose Admin Amlodipine Besylate 5 mg 05/19/24 18:58 05/19/24 19:24 Amlodipine Besylate 5 Mg Tablet PO 05/19/24 18:59 5 mg ONCE ONE Administration Protocol Medical Decision Making Medical Decision Making MDM Narrative: 69-year-old male with a history ofrecent admission for ARDS, currently on home O2 3lpm at rest, 6 with exertion, HTN, ILD, gastric lymphoma , presents to ED given issues with his oxygen tank at home. Patient has a machine as well as supplemental oxygen tanks at home. He uses the tanks for ambulation. The machine is not functioning, he is not getting adequate oxygen. Problem: Oxygen dependent, cancer patient History: Per patient I have considered the following differential diagnoses: New heart failure, pneumonia, viral syndrome, PE Plan: Essentially, the patient does not require a new assessment, he is having equipment issues. He has oxygen takes at home that work appropriately, regardless, a medical assessment was implemented, his assessment is negative, we can discharge him home now I have independently reviewed the following tests: Labs: No leukocytosis, not anemic, no electrolyte abnormality, troponin at baseline EKG: Normal Sinus rhythm, rate of 75 no ischemic changes, no ectopy Chest x-ray: No acute findings on the chest x-ray, no change from recent study Lab Data 05/19/24 16:19 05/19/24 16:19 Labs: Lab Results 05/19/24 Range/Units 16:19 WBC 9.9 (4.8-10.8) X10*3/uL RBC 4.70 (4.60-5.80) X10*6/uL Hgb 14.2 (14.0-18.0) g/dl Hct 40.7 L (42.0-52.0) % MCV 86.6 (80.0-98.0) fL MCH 30.2 (27.0-33.0) pg MCHC 34.9 (31.0-36.0) g/dl RDW 14.6 (11.0-16.0) % Plt Count 206 (160-400) X10*3/uL MPV 10.4 (9.4-12.4) fL Immature Gran % (Auto) 2.6 H (0.0-0.4) % Neut % (Auto) 84.6 H (45-73) % Lymph % (Auto) 5.9 L (20-40) % [place] % (Auto) 6.6 (2-11) % Eos % (Auto) 0.1 (0-4) % Baso % (Auto) 0.2 (0-2) % Lymph # (Auto) 0.6 L (1.2-4.9) X10*3/uL [place] # (Auto) 0.7 (0.1-1.2) X10*3/uL Eos # (Auto) 0.0 (0.0-0.4) X10*3/uL Baso # (Auto) 0.0 (0.0-0.2) X10*3/uL Abs Immat Gran (auto) 0.26 H (0.00-0.03) X10*3/uL Absolute Neuts (auto) 8.4 H (2.0-8.3) x10*3/uL Absolute Nucleated RBC 0.000 (0.0-0.012) X10*3/uL Nucleated RBC % (auto) 0.0 (0.0-0.2) /100WBC PT 12.4 (10.9-12.4) SEC INR 1.1 (0.9-1.1) APTT 27.2 (26.0-36.8) SEC Sodium 139 (135-145) mmol/L Potassium 4.3 (3.3-5.1) mmol/L Chloride 106 (96-108) mmol/L Carbon Dioxide 22 (22-29) mmol/L Anion Gap 15 (12-20) BUN 11 (9-16) mg/dL Creatinine 0.86 (0.5-1.4) mg/dL Estim Creat Clear Calc 78.7 Estimated GFR > 60 Random Glucose 134 H (60-115) mg/dL Calcium 9.4 (8.4-10.2) mg/dL Total Bilirubin 0.7 (0.0-1.0) mg/dL AST 25 (5-37) U/L ALT 66 H (0-40) U/L Alkaline Phosphatase 46 (39-117) U/L Troponin I High Sens 11.7 (<3.5-35.0) ng/L B-Natriuretic Peptide 41 (<100) pg/mL Total Protein 7.1 (6.5-8.0) g/dL Albumin 4.3 (3.5-5.0) g/dL Influenza Type A (PCR) NEGATIVE (Negative) Influenza Type B (PCR) NEGATIVE (Negative) RSV RNA Qual (PCR) NEGATIVE (Negative) SARS-CoV-2 RNA (RT-PCR) NEGATIVE (Negative) Discharge Plan Discharge Clinical Impression: O2 dependent Patient Disposition: Home, Self-Care Additional Instructions: All of your screening labs were normal including a cardiac enzymes, there were no concerning changes on the EKG in your chest x-ray was normal for you. You need to call the service that manages your oxygen machine, in the meantime use your oxygen tanks. 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 Prescriptions: No Action prednisone 10 mg tablet See Taper PO DIRECTED Qty: 50 0RF Taper: Prednisone 40 mg daily for 7 Days and 0 Hour 30 mg daily for 7 Days and 0 Hour Rx Instructions: see taper instructions amlodipine 5 mg tablet 5 mg PO DAILY Qty: 14 0RF prednisone 10 mg tablet 10 mg PO DIRECTED Qty: 33 0RF Rx Instructions: see taper instructions 20 mg x 7 days, 15 mg x 7 days, 10 mg x 7 days, 5 mg x 7 days Print Language: Thai
[2024-05-19 19:24] VITALS: BP 145/85
[2024-05-19] MEDS: amLODIPine Besylate 5 MG TABLET PO (19:24)
--- NOTE | 2024-05-19 19:26 | PC.NURSE ---
this rn assumed care of pt. pt a&ox4, respirations even and unlabored. pt on 3L baseline nc. vss. pt medicated per oct.
[2024-05-19 19:39] VITALS: BP 120/76; PULSE 71; RESP 18; TEMP 36.4; O2SAT 98
--- NOTE | 2024-05-19 19:40 | MHC.EDTECH ---
This tech took over care of patient at 1900,rounds and vitals completed,emptied 200MLS of yellow urine from urinal,call izquierdo in reach
[2024-05-19 20:49] VITALS: BP 120/76; PULSE 71; RESP 18; TEMP 36.4; O2SAT 98
== END 2024-05-19 20:50 | disposition home or self-care (01) ==
PROVIDERS: Physician Assistant; Emergency Provider Internal Medicine; PCP Nurse Practitioner Family
DX: J80 Acute respiratory distress syndrome (principal); Z99.81 Dependence on supplemental oxygen; I49.3 Ventricular premature depolarization; I10 Essential (primary) hypertension; E78.5 Hyperlipidemia, unspecified; Z03.818 Encounter for observation for suspected exposure to other biological agents ruled out; Z79.899 Other long term (current) drug therapy; N40.0 Benign prostatic hyperplasia without lower urinary tract symptoms; R06.02 Shortness of breath
CPT/HCPCS: 0241U; 71046; 80053; 83880; 84484; 85025; 85610; 85730; 93005; 99283; 99284

== ENCOUNTER → 2024-05-19 15:50 | Outpatient (BNV) | payer MEDICARE, SELFPAY | PROVIDERS: Emergency Provider Internal Medicine; PCP Nurse Practitioner Family; Visit Provider Internal Medicine Cardiovascular Disease | DX: I49.1 Atrial premature depolarization (principal) | CPT/HCPCS: 93010 ==

== ENCOUNTER 2024-05-26 08:23 | Outpatient (AMB) | payer MEDICARE, SELFPAY ==
--- NOTE | 2024-05-26 08:28 | A.OFFVIS_ITS ---
Vital Signs 05/26/24 08:29 Height 5 ft 9 in Weight 185 lb BMI 27.3 BP 124/70 Blood Pressure Location Lt brachial Position Sitting Pulse 66 Pulse Source Pulse Oximeter Pulse Oximetry (%) 99 Oxygen Delivery Method Room Air Intake Visit Reasons: COPD Drug Discovery Informatics Specialist Required: No Allergies morphine [MORPHINE] Allergy (Intermediate, Verified 05/26/24 08:28) HR DROPPED azithromycin Adverse Reaction (Intermediate, Verified 05/26/24 08:28) Joint Pain clarithromycin [Prevpac] Adverse Reaction (Intermediate, Verified 05/26/24 08:28) depression (after taking for a few days) - includes most PPI lansoprazole [Prevpac] Adverse Reaction (Intermediate, Verified 05/26/24 08:28) depression (after taking for a few days) - includes most PPI ranitidine [Zantac] Adverse Reaction (Intermediate, Verified 05/26/24 08:28) depression (after taking for a few months) Prilosec Adverse Reaction (Intermediate, Uncoded 05/26/24 08:28) depression (after taking for a few days) - includes most PPI HPI Comments Details: The patient is a 68-year-old gentleman here for evaluation of an abnormal CT scan of the chest. The patient was in usual state health until in 2021 when he underwent a screening endoscopy for the evaluation reflux disease. 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 The patient did undergo radiation therapy. He was also referred to Oncology. Further workup included a PET scan. This was done in July 2022 and I did review the results. No significant FDG activity in the parenchymal lung tissue and no abnormalities noted. The patient did not have any significant lymphadenopathy either. Subsequently after that in September he had a CT scan of the abdomen and pelvis that demonstrated some lung cuts with bilateral areas of airspace disease and consolidations. Patient was asymptomatic. He was placed on antibiotics at that time and he started expectorating some. He was not having any respiratory issues at that time. Subsequently the patient developed the flu she started developing significant myalgia and fatigue arthralgias and was not feeling well. After that he started having worsening cough and shortness of breath and was not feeling well. He started developing pleuritic discomfort. He had a repeat CT scan at that time in October 2022 which was personally by me now demonstrating bilateral peripheral patchy consolidations with some cavitations which appears to me more likely a component of post viral Staph aureus infection. That or some degree of bacteremia. The patient was having significant symptoms and he was seen by urgent care with placement 7 days of Bactrim and also prednisone and he is significantly better at this time. Th erefore likely that by treating the likely staph infection is feeling better. That being said he was having some findings on the CT scan of the abdomen prior to being sick. The question still stands is could he have some underlying bronch is associated lymphoma in addition to the gastric lymphoma of the very unlikely. Based on the fact the patient is feeling better on the Bactrim will going to extend the course the Bactrim to treating for total 21 days. Then we will repeat the imaging studies as long as he is doing well. If the patient is not doing well then we will consider bronchoscopy earlier on. Otherwise will repeat the CT scan in around 6 weeks to see if she still has any residual findings and if he does will go ahead and intervene with a diagnostic bronchoscopy. 08/27/2023 the patient is here for pulmonary follow-up visit. The patient overall has been doing fairly well. Recently he started noticing increasing chest congestion. But minimal. The patient continues to be on 10 mg of prednisone. He is status post the Rituxan injection about 6-8 weeks ago. He does have blood work and a follow-up with his sofa cover inspector soon. In the meantime we did have him go for a chest x-ray appears that he has had a slight increase in the airspace disease primarily on the right lower lobe and also right mid area. This is only minimal degree. Still, will continue to monitor his symptoms and will have a repeat chest x-ray in 3-4 weeks. He is going to see his sofa cover inspector as well. In case his symptoms are worsening further adjustments of his medications may be warranted. But I am hopeful that he can continue on the lower dose prednisone specially with significant cushingoid appearance and high risk for adverse effects from the chronic prednisone use. Denies any fevers or chills low threshold to start antibiotics if his symptoms worsen. 10/29/2023 the patient is here for a pulmonary follow-up visit. Overall he is doing well. He continues on 10 mg of prednisone. He did follow-up with Rheumatology. Pretty happy with his results with rituximab. He did have a recent chest x-ray. We did personally reviewed. Those changes that he had as far as the opacity in the right hemithorax have improved. Overall his x-ray looks a lot better. Still getting some left-sided pleuritic chest discomfort. He did see Oncology and he was ordered to have a CT scan of chest sometime in November. In the meantime will start decreasing the prednisone some very slowly. Will try by 1 mg every 2 weeks to try to decrease at least to 7 mg. Will try to find the lowest most effective dose. If the patient has any trouble doing this he will call. Otherwise the patient does have some snoring. Denies any significant daytime drowsiness. [place] score is only 5/24. Therefore hold off on a sleep study. He has had some weight gain likely from the steroids. Therefore if he does have an increased cardiovascular risk factors home sleep study will be helpful. 03/02/2024 the patient is here for a pulmonary follow-up visit. He continues to do well. He is on 5 mg of prednisone. We have been slowly decreasing it to avoid any rebound effect. Still reassuring. He had a repeat CT scan of the chest which is extremely better. A lot of the nodular densities have resolved. Therefore, going to continues work down to decrease the prednisone slowly. If the patient develops any symptoms in the process he can always call. As he decrease the prednisone he will monitor for any symptoms of adrenal insufficiency. If he has any issues or symptoms of any concerns she will call the office. 05/26/2024 the patient is here for hospital follow-up visit. He has severe COVID with significant ARDS. Has been on prednisone taper. He has been on the oxygen supplementation. We did taken for 6 minute walk test today. The patient did not qualify for a portable oxygen concentrator but we are able to decrease his oxygen to 4 L continuous with activity. He can be on room air at rest. This is good seems to be getting better. In addition to that he can use the oxygen to sleep with. He is currently on prednisone 15 mg. He can get his flu shot now. In addition to that the patient will taper down by 2.5 once a week until he is down to 10 mg and then stay on 10 mg. Patient will follow-up with me in a couple weeks. At that point will reassess for his next Rituxan dose. I am hoping that he can get vaccinated before his next dose. As far as the COVID will go ahead and check his COVID antibodies if his COVID antibodies are negative he will need to get another vaccine. Otherwise if his positive then have to wait at least 90 days from his last infection to be able to take the vaccine. We did look at his x-ray. Does have significant interstitial disease from his recent COVID on top of the interstitial lung disease at baseline. I did reassure him that he will continue to get better although is going to be a slow recovery. Based on his significant COVID he needs to start pulmonary rehabilitation. He is agreeable to this and will try to move him along to start rehab as soon as possible. 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 Pneumonia Pleural effusion Rheumatoid arthritis ILD (interstitial lung disease) Right knee meniscal tear Abnormal biliary HIDA scan Kidney stones [place] of foot Bradycardia Left shoulder pain Normal colonoscopy (~08/2011) Lumbar spondylosis Impaired fasting glucose Dyslipidemia Benign essential hypertension History of gastric ulcer Gastritis Internal hemorrhoids Diverticulosis Benign prostatic hyperplasia Alopecia (capitis) totalis History of Lyme disease (~2009) History of hepatitis C Surgical History History of liver biopsy History of prostate surgery Status post left rotator cuff repair (~11/2020) History of esophagogastroduodenoscopy (EGD) (~06/2019) History of medial meniscus repair of left knee (~12/2016) Hx laparoscopic cholecystectomy (~10/2012) History of right inguinal hernia repair (~2011) History of surgery on right wrist Family History Father Gastric cancer Prostate cancer Family/Other Pancreas cancer Brother Skin cancer Social History Household Members: Other Household Members Other:: mother Housing: House Are you a primary critical care nurse to a significant other at home: No Do you presently have visiting nurse or other home services: No Alcohol intake: never Patient Tobacco Use Status: Never used Tobacco e-Cigarette/Vaping Use: Never Used Second Hand Smoke Exposure: No Advance Directives Date on File: 05/03/24 service: Yes Current occupational status: retired Cognitive needs: No Hearing needs: No Vision needs: Yes Review of Systems Const Denies chills, Denies excessive sweating, Denies fever(s), Denies headache(s) and Denies night sweats Eyes Denies dry eyes, Denies irritation and Denies itchy eyes ENT Reports Normal hearing present, Denies headache(s), Denies nasal congestion, Denies nasal discharge, Denies post nasal drip and Denies sore throat Card Denies chest pain, Denies chest pain at rest, Denies chest pain with activity, Denies claudication, Denies leg edema, Reports dyspnea, Reports dyspnea on exertion, Denies orthopnea and Denies paroxysmal nocturnal dyspnea Resp Denies chest congestion, Denies cough, Denies excessive phlegm production, Denies pain on inspiration, Denies pain with cough, Reports dyspnea, Reports dyspnea on exertion, Denies stridor and Denies wheezing Neuro Reports Normal hearing present and Denies headache(s) Endo Denies excessive sweating Edwin/Lymph Denies lymphadenopathy Aller/Immun Denies itchy eyes, Denies seasonal rhinorrhea and Denies wheezing Physical Exam Vital Signs: Last Vital Signs Pulse 66 05/26/24 08:29 BP 124/70 05/26/24 08:29 Pulse Ox 99 05/26/24 08:29 Oxygen Delivery Method Room Air 05/26/24 08:29 BMI result Body Mass Index 27.3 Last Vital Signs Temp 97.4 F 04/29/24 08:00 Pulse 53 04/29/24 08:00 Resp 20 04/29/24 08:00 BP 139/79 04/29/24 08:00 Pulse Ox 87 L 04/29/24 08:00 O2 Del Method Oxymask 04/29/24 08:00 O2 Flow Rate 7 04/29/24 08:00 BMI result Body Mass Index 27.1 Const Other: Awake alert; able to speak short sentences General: cooperative and healthy appearing Nutritional Appearance: well nourished Orientation/consciousness: patient oriented x3 Limitations: no limitations HEENT Head: Yes normal to inspection Eyes General: appearance normal, both eyes and all related structures Neck Neck: Yes normal visual inspection Chest Chest palpation & inspection: normal inspection of the chest Resp Other: Diminished at bases with diffuse end inspiratory crackles and no expiratory wheezes Effort & Inspection: normal respiratory effort and able to speak in complete sentences Auscultation: rales and diminished lung sounds Cardio Other: No S4; positive S1-S2; no S3 murmurs rubs or gallops Rhythm: regular rhythm Heart sounds: S1 normal heart sound present and S2 normal heart sound present GI Other: Soft nontender nondistended normoactive bowel sounds Neuro General: patient oriented x3 Cranial nerves: Yes Normal hearing present Extrem Other: No edema bilaterally General: Yes no clubbing, cyanosis or edema Office Procedures 6 Minute Walk Time:: 08:50 SPO2 % at rest: 94 Pulse at rest: 71 SPO2 % during excercise: 88 Pulse during excercise: 87 SPO2 % after excercise: 94 Pulse after excercise: 74 Distance in yards walked: 300 Bridget Score: 0 Performance Observations:: pt ambulated on r.a. spo2 dropped to 88%, O2 started on 2 l on the padmaja, spo2 still dropping to 88%, increased liter flow gradually to 5 but unable to maintain sat above 89%. Placed back on regular tank with 2 l spo2 increased to 94% and stable. HR between 74 and 87. Performed by Kassidy [id number] - 6 Minute Walk Results Reviewed Results Reviewed: personally reviewed 05/26/2024 with increase reticular opacities Assessment & Plan Assessment & Plan (1) ILD (interstitial lung disease): Code(s): J84.9 - Interstitial pulmonary disease, unspecified Category: Medical (2) History of acute respiratory distress syndrome (ARDS): Code(s): Z87.09 - Personal history of other diseases of the respiratory system Category: Medical (3) Acute respiratory distress syndrome (ARDS) due to COVID-19 virus: Code(s): U07.1 - COVID-19; J80 - Acute respiratory distress syndrome Category: Medical (4) 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, unspecified Category: Medical Plan Prednisone 15mg with slow taper to 10mg daily Oxygen revision: 4L/min with activity and sleep start rehab PFTs bloodwork F/U 2-3 weeks Orders: Orders PFT pulmonary function test Today J80 - Acute respiratory distress syndrome, U07.1 - COVID-19 SARS COV2 IgG Today I50.9 - Heart failure, unspecified, J80 - Acute respiratory distress syndrome, U07.1 - COVID-19, Z87.09 - Personal history of other diseases of the respiratory system Complete Blood Count Auto Diff Today I50.9 - Heart failure, unspecified, J80 - Acute respiratory distress syndrome, U07.1 - COVID-19, Z87.09 - Personal history of other diseases of the respiratory system Basic Metabolic Panel Today I50.9 - Heart failure, unspecified, J80 - Acute respiratory distress syndrome, U07.1 - COVID-19, Z87.09 - Personal history of other diseases of the respiratory system Erythrocyte Sedimentation Rate Today I50.9 - Heart failure, unspecified, J80 - Acute respiratory distress syndrome, U07.1 - COVID-19, Z87.09 - Personal history of other diseases of the respiratory system B Type Natriuretic Peptide Today I50.9 - Heart failure, unspecified, J80 - Acute respiratory distress syndrome, U07.1 - COVID-19, Z87.09 - Personal history of other diseases of the respiratory system AMB 6 minute walk Today J84.9 - Interstitial pulmonary disease, unspecified Pulmonary Rehab Today J80 - Acute respiratory distress syndrome, U07.1 - COVID- 19 Medications: New prednisone 5 mg (2 x 2.5 mg) PO DAILY 30 days 60 tabs 5RF Changed From prednisone see taper instructions 20 mg x 7 days, 15 mg x 7 days, 10 mg x 7 days, 5 mg x 7 days 10 mg PO DIRECTED 33 tabs 0RF To prednisone 10 mg PO DAILY 30 days 30 tabs 11RF Coding Level of Care Code Est Pt Level 5 (27679) Complex EM visit Add On G2211 Diagnoses ILD (interstitial lung disease) J84.9 History of acute respiratory distress syndrome (ARDS) Z87.09 Acute respiratory distress syndrome (ARDS) due to COVID-19 virus U07.1; J80 [id number] syndrome U09.9 CPT Codes Coding ([id number]) Time Spent (min) 45
[2024-05-26 08:29] VITALS: BP 124/70; PULSE 66; O2SAT 99; BMI 27.3
[2024-05-26 09:10] VITALS: PULSE 71; O2SAT 94
== END 2024-05-26 09:13 | disposition home or self-care (01) ==
PROVIDERS: PCP Nurse Practitioner Family; Visit Provider Hospitalist
DX: J84.9 Interstitial pulmonary disease, unspecified (principal); Z87.09 Personal history of other diseases of the respiratory system; U09.9 Post COVID-19 condition, unspecified; J80 Acute respiratory distress syndrome
CPT/HCPCS: 94618; 99215

== ENCOUNTER 2024-05-26 08:23 | Outpatient (REF) | payer MEDICARE, SELFPAY ==
[2024-05-26 09:41] LABS: MANUAL DIFF FLAG NO
[2024-05-26 09:53] LABS: Basophils Absolute Auto 0.1 X10*3/uL (0.0-0.2); Basophils Percent Auto 0.7 % (0-2); Eosinophils Percent Auto 0.2 % (0-4); Hematocrit 40.8 % (42.0-52.0); Hemoglobin 13.4 g/dl (14.0-18.0); Imm Gran Abs Auto 0.31 X10*3/uL (0.00-0.03); Imm Gran Pct Auto 2.5 % (0.0-0.4); Lymphocytes Absolute Auto 0.4 X10*3/uL (1.2-4.9); Lymphocytes Percent Auto 3.2 % (20-40); Mean Corpuscular HGB Conc 32.8 g/dl (31.0-36.0); Mean Corpuscular Hemoglobin 29.5 pg (27.0-33.0); Mean Corpuscular Volume 89.9 fL (80.0-98.0); Mean Platelet Volume 10.4 fL (9.4-12.4); Monocytes Absolute Auto 0.9 X10*3/uL (0.1-1.2); Monocytes Percent Auto 7.2 % (2-11); Neutrophils Absolute Auto 10.5 x10*3/uL (2.0-8.3); Neutrophils Percent Auto 86.2 % (45-73); Platelet Count 225 X10*3/uL (160-400); Red Blood Count 4.54 X10*6/uL (4.60-5.80); Red Cell Distribution Width 14.9 % (11.0-16.0); White Blood Count 12.2 X10*3/uL (4.8-10.8)
[2024-05-26 10:12] LABS: Alanine Aminotransferase 79 U/L (0-40); Albumin Level 4.3 g/dL (3.5-5.0); Alkaline Phosphatase 43 U/L (39-117); Anion Gap 12 (12-20); Aspartate Amino Transferase 34 U/L (5-37); Bilirubin Total 0.3 mg/dL (0.0-1.0); Blood Urea Nitrogen 15 mg/dL (9-16); C Reactive Protein 1.08 mg/dL (< or = 0.50); Calcium 9.7 mg/dL (8.4-10.2); Carbon Dioxide 26 mmol/L (22-29); Chloride 108 mmol/L (96-108); Estimated Glomerular Filt Rate > 60; Glucose Random 111 mg/dL (60-115); Potassium 4.2 mmol/L (3.3-5.1); Sodium 142 mmol/L (135-145)
[2024-05-26 10:30] LABS: Erythrocyte Sedimentation Rate 14 MM/HR (0-15)
[2024-05-26 11:02] LABS: B Type Natriuretic Peptide 76 pg/mL (<100)
[2024-05-31 15:08] LABS: SARS COV2 IgG Positive (Negative)
== END 2024-05-26 08:24 | disposition home or self-care (01) ==
LOC: HO.LAB 08:23
PROVIDERS: PCP Nurse Practitioner Family; Visit Provider Hospitalist
DX: J84.9 Interstitial pulmonary disease, unspecified (principal); U07.1 COVID-19; J80 Acute respiratory distress syndrome; I50.9 Heart failure, unspecified; M06.00 Rheumatoid arthritis without rheumatoid factor, unspecified site; Z87.09 Personal history of other diseases of the respiratory system
CPT/HCPCS: 36415; 80053; 83880; 85025; 85652; 86140; 86769; 94618; 99212

== ENCOUNTER 2024-05-27 08:20 | Outpatient (AMB) | payer MEDICARE, SELFPAY ==
--- NOTE | 2024-05-27 07:11 | A.OFFPC_ITS ---
Intake Visit Reasons: ED follow up Allergies morphine [MORPHINE] Allergy (Intermediate, Verified 05/26/24 08:28) HR DROPPED azithromycin Adverse Reaction (Intermediate, Verified 05/26/24 08:28) Joint Pain clarithromycin [Prevpac] Adverse Reaction (Intermediate, Verified 05/26/24 08:28) depression (after taking for a few days) - includes most PPI lansoprazole [Prevpac] Adverse Reaction (Intermediate, Verified 05/26/24 08:28) depression (after taking for a few days) - includes most PPI ranitidine [Zantac] Adverse Reaction (Intermediate, Verified 05/26/24 08:28) depression (after taking for a few months) Prilosec Adverse Reaction (Intermediate, Uncoded 05/26/24 08:28) depression (after taking for a few days) - includes most PPI Tobacco use date assessed: 05/10/24 Dental Screening Dental Screen Date: 05/10/24 HPI ED follow up HPI Details Pt was seen in the ER on 05/18 with elevated blood pressure. Labs notable for no leukocytosis, slight anemia consistent with prior results, no evidence of ISSAC, slightly elevated troponin. Head CT was negative for acute abnormality. Pt's blood pressure improved with meds. No delta on repeat troponin. Pt was d/c on amlodipine. He reports doing better today. He reports his BP has been much better. Pt is following up with pulmonology. He is staying on 4L of oxygen with activity. He is going to start pulmonary rehab in the near future. Denies chest pain, shortness of breath, headache, dizziness, and blurred vision. 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 Pneumonia Pleural effusion Rheumatoid arthritis ILD (interstitial lung disease) Right knee meniscal tear Abnormal biliary HIDA scan Kidney stones [place] of foot Bradycardia Left shoulder pain Normal colonoscopy (~08/2011) Lumbar spondylosis Impaired fasting glucose Dyslipidemia Benign essential hypertension History of gastric ulcer Gastritis Internal hemorrhoids Diverticulosis Benign prostatic hyperplasia Alopecia (capitis) totalis History of Lyme disease (~2009) History of hepatitis C Surgical History History of liver biopsy History of prostate surgery Status post left rotator cuff repair (~11/2020) History of esophagogastroduodenoscopy (EGD) (~06/2019) History of medial meniscus repair of left knee (~12/2016) Hx laparoscopic cholecystectomy (~10/2012) History of right inguinal hernia repair (~2011) History of surgery on right wrist Family History Father Gastric cancer Prostate cancer Family/Other Pancreas cancer Brother Skin cancer Social History Household Members: Other Household Members Other:: mother Housing: House Are you a primary childcare attendant to a significant other at home: No Do you presently have visiting nurse or other home services: No Alcohol intake: never Patient Tobacco Use Status: Never used Tobacco e-Cigarette/Vaping Use: Never Used Second Hand Smoke Exposure: No Advance Directives Date on File: 05/03/24 service: Yes Current occupational status: retired Cognitive needs: No Hearing needs: No Vision needs: Yes Questionnaire Thrive Questionnaire Date Thrive assessed: 04/13/24 BLAIR-7 AMB Questionnaire BLAIR-7 Date BLAIR - 7 assessed: 05/10/24 Source: Developed by Drs. Joshua Carreon, Erika Gomez, Filipe Hein and colleagues, with an educational paige from [employer] (acquired by [employer]). Review of Systems Const Reports as per HPI Physical exam (Primary Care) Tobacco/Smoking Status: Tobacco use Status Tobacco use date assessed 05/10/24 05/27/24 07:11 Patient Tobacco Use Status Never used Tobacco 05/27/24 07:11 e-Cigarette/Vaping Use Never Used 05/27/24 07:11 Thrive Assessment: Date of Thrive Assessment Date Thrive assessed 04/13/24 05/27/24 07:11 Const General: cooperative Orientation/consciousness: patient oriented x3 Neuro General: patient oriented x3 Psych Appearance: grossly normal Mental Status: mental status grossly normal Speech and movement: Clear speech present Affect: normal affect Attitude: cooperative Thought process: Normal thought process present Thought content: Normal thought content present Insight: Good insight present (Psych) Judgement: Good judgement present (Psych) Telehealth Telehealth Telehealth Platform: [facility] Location of provider rendering services: practice address Location of patient: address on file Patient Identification confirmed using: Name, : Yes Telehealth method: video Patient verbally consented to treatment: Yes Patient verbally consented to billing insurance company: Yes Patient informed of any privacy concerns related to visit: Yes Minutes spent on Phone/Video with Pt.: 10 Coding Level of Care Code Tele Est Pt Level 3 (69448) Diagnoses [id number]-42 syndrome U09.9 HTN (hypertension) I10 Assessment & Plan Assessment & Plan (1) [id number] syndrome: Code(s): U09.9 - Post COVID-19 condition, unspecified Category: Medical Plan: Doing well currently, will cont to monitor. Starting pul rehab soon, following up with pulmonary (2) HTN (hypertension): Code(s): I10 - Essential (primary) hypertension Category: Medical Plan: BP is doing better, continue amlodipine Plan The patient agreed to the use of a medical coding specialist for this encounter. Scribed for ELEANOR Gold by Yaa Penaloza medical coding specialist, on 05/27/2024 at 07:15 EST. Medications: Refilled amlodipine 5 mg PO DAILY 30 tabs 2RF
== END 2024-05-27 09:23 | disposition home or self-care (01) ==
LOC: HO.HMCC 08:20
PROVIDERS: PCP Nurse Practitioner Family; Visit Provider Nurse Practitioner Family
DX: U09.9 Post COVID-19 condition, unspecified (principal); I10 Essential (primary) hypertension

== ENCOUNTER → 2024-05-27 08:20 | Outpatient (BNVA) | payer MEDICARE, SELFPAY | PROVIDERS: PCP Nurse Practitioner Family; Visit Provider Nurse Practitioner Family | DX: U09.9 Post COVID-19 condition, unspecified (principal); I10 Essential (primary) hypertension ==

== ENCOUNTER 2024-06-15 09:33 | Outpatient (REF) | payer MEDICARE, SELFPAY | END 2024-06-15 09:34 | disposition home or self-care (01) | LOC: HO.LAB 09:33 | PROVIDERS: PCP Nurse Practitioner Family; Visit Provider Student in an Organized Health Care Education/Training Program | DX: Z13.89 Encounter for screening for other disorder (principal) ==

== ENCOUNTER 2024-06-17 06:04 | Outpatient (REF) | payer MEDICARE, SELFPAY ==
[2024-06-17 07:46] LABS: Alanine Aminotransferase 69 U/L (0-40); Albumin Level 4.2 g/dL (3.5-5.0); Alkaline Phosphatase 44 U/L (39-117); Anion Gap 15 (12-20); Aspartate Amino Transferase 35 U/L (5-37); Bilirubin Total 0.4 mg/dL (0.0-1.0); Blood Urea Nitrogen 16 mg/dL (9-16); Calcium 9.5 mg/dL (8.4-10.2); Carbon Dioxide 21 mmol/L (22-29); Chloride 109 mmol/L (96-108); Estimated Glomerular Filt Rate > 60; Glucose Random 127 mg/dL (60-115); Potassium 3.6 mmol/L (3.3-5.1); Sodium 141 mmol/L (135-145); Total Protein 6.8 g/dL (6.5-8.0)
[2024-06-17 07:56] LABS: Erythrocyte Sedimentation Rate 6 MM/HR (0-15)
== END 2024-06-17 06:05 | disposition home or self-care (01) ==
LOC: HO.LAB 06:04
PROVIDERS: PCP Nurse Practitioner Family; Visit Provider Student in an Organized Health Care Education/Training Program
DX: M06.00 Rheumatoid arthritis without rheumatoid factor, unspecified site (principal)
CPT/HCPCS: 36415; 80053; 85652

== ENCOUNTER 2024-06-22 08:30 | Outpatient (RCR) | payer MEDICARE, SELFPAY | END 2024-08-03 07:25 | disposition home or self-care (01) | LOC: HO.PR 08:30 | PROVIDERS: PCP Nurse Practitioner Family; Visit Provider Hospitalist | DX: U07.1 COVID-19 (principal); J80 Acute respiratory distress syndrome | CPT/HCPCS: 94618; 99212; G0237; G0239 ==

== ENCOUNTER 2024-06-23 08:20 | Outpatient (AMB) | payer MEDICARE, SELFPAY ==
--- NOTE | 2024-06-23 08:21 | MHC.OFFVIS ---
Vital Signs 06/23/24 08:26 Height 5 ft 9 in Weight 195 lb 15.855 oz BMI 28.9 BP 124/78 Blood Pressure Location Lt brachial Position Sitting Respiration 18 Pulse 73 Pulse Source Pulse Oximeter Pulse Oximetry (%) 97 Oxygen Delivery Method Room Air Intake Visit Reasons: RA/CM Intake Note: Patient present for RA. Allergies morphine [MORPHINE] Allergy (Intermediate, Verified 06/23/24 08:25) HR DROPPED azithromycin Adverse Reaction (Intermediate, Verified 06/23/24 08:25) Joint Pain clarithromycin [Prevpac] Adverse Reaction (Intermediate, Verified 06/23/24 08:25) depression (after taking for a few days) - includes most PPI lansoprazole [Prevpac] Adverse Reaction (Intermediate, Verified 06/23/24 08:25) depression (after taking for a few days) - includes most PPI ranitidine [Zantac] Adverse Reaction (Intermediate, Verified 06/23/24 08:25) depression (after taking for a few months) Prilosec Adverse Reaction (Intermediate, Uncoded 05/26/24 08:28) depression (after taking for a few days) - includes most PPI Medication List - Last Reconciled 06/23/24 by Lee Ann Goyal MD amlodipine 5 mg PO DAILY Oxygen Home Use As directed prednisone See Taper mg PO DIRECTED prednisone 10 mg PO DAILY 30 days prednisone 5 mg (2 x 2.5 mg) PO DAILY 30 days HPI Comments Details: 69-year-old male with cryptogenic organizing pneumonia and seronegative rheumatoid arthritis returns for follow-up. Patient received 1 dose of rituximab 03/25. Resident 2 weeks after he was diagnosed with COVID. Few days later his condition worsened and he was admitted to the hospital for a few days, had to have oxygen supplementation. On discharge patient needed some oxygen. He was treated with prednisone taper. He has been tapering down his prednisone slowly. He is currently on 12.5 mg of prednisone. He states that he was doing well about 10 days ago when he received his flu vaccine. He stated that his flu vaccine made him worse. Since he got his flu vaccine he has had some fatigue, headaches, stuffy nose. He states that throughout the day he gets short of breath but does not require any oxygen. He uses 4 L of oxygen at night. He denies any joint pain or swelling. He states that he was diagnosed with pneumonia infection about a month ago and was prescribed Augmentin by Dr. Rowley Initial history: This is a 67-year-old male presents for evaluation of diffuse joint pain. 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 He also has history of alopecia Universalis since 1986. 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 Since then he has limited extension of right wrist. He states that back in August of 2022 he started having right wrist pain and swelling. He was evaluated by [facility] and received an steroid injection in the right wrist which gave him total relief for a few weeks. In September he was having fatigue and some cough. CT chest showed findings suspicious of pneumonia. He received multiple rounds of antibiotics. He also received few courses of prednisone which provided significant relief of his overall joint pain. States that he would have pain in his wrists, hands, stiffness, difficulty closing his fingers, shoulder and elbow stiffness. He was evaluated by [facility] 4 days ago and received 2 injections in the left wrist which gave him dramatic relief of his generalized joint pain and stiffness. Patient is unaware of any family history of autoimmune rheumatic disease. He continues to take meloxicam. 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 Pneumonia Pleural effusion Rheumatoid arthritis ILD (interstitial lung disease) Right knee meniscal tear Abnormal biliary HIDA scan Kidney stones [place] of foot Bradycardia Left shoulder pain Normal colonoscopy (~08/2011) Lumbar spondylosis Impaired fasting glucose Dyslipidemia Benign essential hypertension History of gastric ulcer Gastritis Internal hemorrhoids Diverticulosis Benign prostatic hyperplasia Alopecia (capitis) totalis History of Lyme disease (~2009) History of hepatitis C Surgical History History of liver biopsy History of prostate surgery Status post left rotator cuff repair (~11/2020) History of esophagogastroduodenoscopy (EGD) (~06/2019) History of medial meniscus repair of left knee (~12/2016) Hx laparoscopic cholecystectomy (~10/2012) History of right inguinal hernia repair (~2011) History of surgery on right wrist Family History Father Gastric cancer Prostate cancer Family/Other Pancreas cancer Brother Skin cancer Social History Household Members: Other Household Members Other:: mother Housing: House Are you a primary career developer to a significant other at home: No Do you presently have visiting nurse or other home services: No Alcohol intake: never Patient Tobacco Use Status: Never used Tobacco e-Cigarette/Vaping Use: Never Used Second Hand Smoke Exposure: No Advance Directives Date on File: 05/03/24 service: Yes Current occupational status: retired Cognitive needs: No Hearing needs: No Vision needs: Yes Review of Systems ENT Reports nasal congestion Card Reports dyspnea on exertion Resp Denies cough and Reports dyspnea on exertion Musc Denies arthralgias, Denies joint swelling and Denies stiffness Physical Exam Vital Signs: Last Vital Signs Pulse 73 06/23/24 08:26 Resp 18 06/23/24 08:26 BP 124/78 06/23/24 08:26 Pulse Ox 97 06/23/24 08:26 Oxygen Delivery Method Room Air 06/23/24 08:26 BMI result Body Mass Index 28.9 Const Other: Slightly cushingoid with early helm facies General: cooperative, healthy appearing, comfortable and no acute distress Nutritional Appearance: overweight Orientation/consciousness: patient oriented x3 Limitations: no limitations HEENT Head: Yes normocephalic and Yes atraumatic Mouth: moist mucous membranes Resp Effort & Inspection: normal respiratory effort and able to speak in complete sentences Auscultation: clear to auscultation bilaterally Cardio Rate: regular rate Rhythm: regular rhythm Skin General skin exam: no rashes or lesions noted Neuro General: patient oriented x3 Extrem Other: Osteoarthritic changes of both hands with no active synovitis Negative straight leg raise test bilaterally No trochanteric bursa area tenderness bilaterally No knee pain with full flexion-extension Osteoarthritic changes of both hands with no active synovitis Assessment & Plan Assessment & Plan (1) Seronegative rheumatoid arthritis: Comment: RTX 1 g X 2 doses 07/2023 1 dose 03/2024 Code(s): M06.00 - Rheumatoid arthritis without rheumatoid factor, unspecified site Category: Medical Plan: This is a 69-year-old male with seronegative RA and ILD (cryptogenic organizing pneumonia) (labs showed borderline positive PL-7, ++DsDNA but no other clinical or serologic criteria for lupus) who presents for follow-up.? Patient received 1 dose of rituximab 03/2024, less than 2 weeks after he developed COVID pneumonia, he was hospitalized for a few days for it and discharged on prednisone and oxygen supplementation. Essentially patient had ARDS from COVID. Patient has been doing relatively well, slowly improving, prednisone is being tapered down, he is currently on 12.5 mg daily. Oxygen only while sleeping. He had another respiratory infection about a month ago treated with antibiotics. Overall patient is improving There is no active inflammatory arthritis at this time. I think at this time I would like to continue to monitor patient off DMARDs. Given his high susceptibility for infection. Patient will see Dr. Rowley about a month and will have another chest x-ray. If patient flares up again with steroid dose reduction and requires another DMARD, I am inclined to avoid rituximab this time. I will consider other options. Such as tocilizumab. I will discuss further with Dr. Rowley Follow-up in 4-5 weeks Plan I spent 26 minutes reviewing patient's chart, evaluating patient, ordering diagnostic workup, counseling patient and documenting in the chart Orders: Orders Erythrocyte Sedimentation Rate 4 Weeks M06.00 - Rheumatoid arthritis without rheumatoid factor, unspecified site Immunofixation Pnl, Serum 4 Weeks M06.00 - Rheumatoid arthritis without rheumatoid factor, unspecified site Complete Blood Count Auto Diff 4 Weeks M06.00 - Rheumatoid arthritis without rheumatoid factor, unspecified site Comprehensive Met. Panel 4 Weeks M06.00 - Rheumatoid arthritis without rheumatoid factor, unspecified site C Reactive Protein 4 Weeks M06.00 - Rheumatoid arthritis without rheumatoid factor, unspecified site Protein Electrophoresis, Serum 4 Weeks M06.00 - Rheumatoid arthritis without rheumatoid factor, unspecified site Coding Level of Care Code Est Pt Level 4 (54740) Diagnoses Seronegative rheumatoid arthritis M06.00
[2024-06-23 08:26] VITALS: BP 124/78; PULSE 73; RESP 18; O2SAT 97; BMI 28.9
== END 2024-06-23 08:51 | disposition home or self-care (01) ==
PROVIDERS: PCP Nurse Practitioner Family; Visit Provider Student in an Organized Health Care Education/Training Program
DX: M06.00 Rheumatoid arthritis without rheumatoid factor, unspecified site (principal)
CPT/HCPCS: 99214

== ENCOUNTER → 2024-06-23 08:20 | Outpatient (BNVA) | payer MEDICARE, SELFPAY | PROVIDERS: PCP Nurse Practitioner Family; Visit Provider Student in an Organized Health Care Education/Training Program | DX: J84.9 Interstitial pulmonary disease, unspecified (principal); M06.00 Rheumatoid arthritis without rheumatoid factor, unspecified site; R09.02 Hypoxemia; M06.9 Rheumatoid arthritis, unspecified; Z86.16 Personal history of COVID-19; Z87.09 Personal history of other diseases of the respiratory system; Z99.81 Dependence on supplemental oxygen; Z79.899 Other long term (current) drug therapy | CPT/HCPCS: 99212 ==

== ENCOUNTER 2024-06-23 13:52 | Outpatient (AMB) | payer MEDICARE, SELFPAY ==
[2024-06-23 13:55] VITALS: BP 138/70; PULSE 77; O2SAT 96; BMI 29.1
--- NOTE | 2024-06-23 13:55 | MHC.OFFVIS ---
Vital Signs 06/23/24 13:55 Height 5 ft 9 in Weight 197 lb 6 oz BMI 29.1 BP 138/70 Blood Pressure Location Rt brachial Position Sitting Pulse 77 Pulse Source Pulse Oximeter Pulse Oximetry (%) 96 Oxygen Delivery Method Room Air Intake Visit Reasons: hypoxia, per MD Rowley Allergies morphine [MORPHINE] Allergy (Intermediate, Verified 06/23/24 13:58) HR DROPPED azithromycin Adverse Reaction (Intermediate, Verified 06/23/24 13:58) Joint Pain clarithromycin [Prevpac] Adverse Reaction (Intermediate, Verified 06/23/24 13:58) depression (after taking for a few days) - includes most PPI lansoprazole [Prevpac] Adverse Reaction (Intermediate, Verified 06/23/24 13:58) depression (after taking for a few days) - includes most PPI ranitidine [Zantac] Adverse Reaction (Intermediate, Verified 06/23/24 13:58) depression (after taking for a few months) Prilosec Adverse Reaction (Intermediate, Uncoded 06/23/24 13:58) depression (after taking for a few days) - includes most PPI HPI HPI hypoxia, per MD Rowley: Details: Chad is a pleasant 69 year old male, never smoker, with h/o gastric MALT lymphoma s/p radiation 2021, seronegative RA on Rituximab q 6 months, ILD, h/o cryptogenic organizing pneumonia and recent acute respiratory failure with hypoxia 04/2024. He is under the care of Dr. Rowley and presents today for an acute visit. Upon discharge he continued to require supplemental oxygen, 3L at rest and 6 L with ambulation. He is currently using supplemental oxygen 4L at night otherwise not using. He has been maintaining oxygen saturation of 92-96% on room air. He reports symptoms were relatively controlled until URI in May in which he was prescribed Augmentin x 14 days however after 7 days he discontinued because he was feeling well. Less than a week later symptoms recurred with fatigue, chest congestion, dry cough and intermittent wheezing. He denies fevers, occasionally reports chills. Prior to the recurrence of symptoms patient received his flu vac. Of note, he was evaluated by Dr. Goyal this morning and is going to hold off on Rituximab that was due this week until further notice. He is currently maintained on 12.5 mg and decreasing by 1 mg every week until he reaches 10 mg, then will reassess with Dr. Rowley. [facility] Medical History [id number] syndrome Pneumonia Pleural effusion Rheumatoid arthritis ILD (interstitial lung disease) Right knee meniscal tear Abnormal biliary HIDA scan Kidney stones [place] of foot Bradycardia Left shoulder pain Normal colonoscopy (~08/2011) Lumbar spondylosis Impaired fasting glucose Dyslipidemia Benign essential hypertension History of gastric ulcer Gastritis Internal hemorrhoids Diverticulosis Benign prostatic hyperplasia Alopecia (capitis) totalis History of Lyme disease (~2009) History of hepatitis C Surgical History History of liver biopsy History of prostate surgery Status post left rotator cuff repair (~11/2020) History of esophagogastroduodenoscopy (EGD) (~06/2019) History of medial meniscus repair of left knee (~12/2016) Hx laparoscopic cholecystectomy (~10/2012) History of right inguinal hernia repair (~2011) History of surgery on right wrist Family History Father Gastric cancer Prostate cancer Family/Other Pancreas cancer Brother Skin cancer Social History Household Members: Other Household Members Other:: mother Housing: House Are you a primary childcare center director to a significant other at home: No Do you presently have visiting nurse or other home services: No Alcohol intake: never Patient Tobacco Use Status: Never used Tobacco e-Cigarette/Vaping Use: Never Used Second Hand Smoke Exposure: No Advance Directives Date on File: 05/03/24 service: Yes Current occupational status: retired Cognitive needs: No Hearing needs: No Vision needs: Yes Review of Systems Const Denies excessive sweating, Denies fever(s), Denies headache(s) and Denies night sweats Eyes Denies itchy eyes ENT Reports Normal hearing present, Denies headache(s), Denies nasal discharge, Denies post nasal drip and Denies sore throat Card Denies chest pain, Denies chest pain at rest, Denies chest pain with activity, Denies claudication, Denies leg edema, Denies orthopnea and Denies paroxysmal nocturnal dyspnea Resp Denies excessive phlegm production, Denies pain on inspiration, Denies pain with cough and Denies stridor Neuro Reports Normal hearing present and Denies headache(s) Endo Denies excessive sweating Edwin/Lymph Denies lymphadenopathy Aller/Immun Denies itchy eyes and Denies seasonal rhinorrhea Physical Exam Vital Signs: Last Vital Signs Pulse 77 06/23/24 13:55 BP 138/70 06/23/24 13:55 Pulse Ox 96 06/23/24 13:55 Oxygen Delivery Method Room Air 06/23/24 13:55 BMI result Body Mass Index 29.1 Const General: cooperative, comfortable, no acute distress and alert Orientation/consciousness: patient oriented x3 Limitations: no limitations HEENT Head: Yes normal to inspection, Yes normocephalic and Yes atraumatic Ears: hearing grossly normal bilaterally and external ears normal Eyes General: appearance normal, both eyes and all related structures Eyelids: Yes eyelids normal Sclerae: sclerae normal EOM: EOMs intact bilaterally Neck Neck: Yes normal visual inspection and Yes no lymphadenopathy Lymphatic: no lymphadenopathy noted Chest Chest palpation & inspection: normal inspection of the chest Resp Effort & Inspection: normal respiratory effort, able to speak in complete sentences, no audible wheezes, no cough, no stridor, not tachypneic, no tripod positioning and no use of accessory muscles Auscultation: clear to auscultation bilaterally Cardio Jugular venous distension: no JVD Rate: regular rate Rhythm: regular rhythm Skin Other: warm, dry General skin exam: no rashes or lesions noted Neuro General: patient oriented x3 Cranial nerves: Yes Normal hearing present Cognition (Neuro): normal cognition Gait exam (Neuro): Normal gait present Extrem General: Yes normal to inspection, Yes capillary refill normal, Yes no clubbing, cyanosis or edema and Yes no pedal edema Psych Appearance: grossly normal and well kempt Speech and movement: Normal speech and movement present and Clear speech present Affect: normal affect Attitude: cooperative Thought process: Normal thought process present Thought content: Normal thought content present Insight: Good insight present (Psych) Judgement: Good judgement present (Psych) Assessment & Plan Assessment & Plan (1) ILD (interstitial lung disease): Code(s): J84.9 - Interstitial pulmonary disease, unspecified Category: Medical (2) History of acute respiratory distress syndrome (ARDS): Code(s): Z87.09 - Personal history of other diseases of the respiratory system Category: Medical Plan Will treat with cefpodoxime. Side effect reviewed. Patient aware to complete entire course of medication. He is aware to call if symptoms do not improve and will obtain CXR, order placed by Dr. Rowley previously. All questions were answered and patient is in agreement of plan. Will follow up with Dr. Rowley for regularly scheduled appointment or sooner if needed. Medications: New cefpodoxime must administer with a meal/food 200 mg PO BID 20 tabs 0RF Coding Level of Care Code Est Pt Level 4 (31667) Diagnoses ILD (interstitial lung disease) J84.9 History of acute respiratory distress syndrome (ARDS) Z87.09
== END 2024-06-23 14:29 | disposition home or self-care (01) ==
PROVIDERS: PCP Nurse Practitioner Family; Visit Provider Nurse Practitioner Family
DX: J84.9 Interstitial pulmonary disease, unspecified (principal); Z87.09 Personal history of other diseases of the respiratory system
CPT/HCPCS: 99214

== ENCOUNTER 2024-07-05 10:12 | Outpatient (REF) | payer MEDICARE, SELFPAY ==
--- NOTE | ~2024-07-05 | XR_ITS ---
EXAMINATION: XR CHEST CLINICAL INFORMATION: Pneumonia, unspecified organism. COMPARISON: 05/19/2024, 05/17/2024, 04/29/2024. TECHNIQUE: 2 views of the chest were obtained. FINDINGS: Dextroscoliosis of the thoracic spine with multilevel degenerative changes. There is no gross pneumothorax. Stable cardiomediastinal silhouette. Heart size normal. Similar appearance of extensive diffuse bilateral interstitial opacities and multifocal airspace opacities. No significant pleural effusion. XR/XR chest 2V IMPRESSION: Similar appearance of extensive diffuse bilateral interstitial opacities and patchy multifocal airspace opacities. This study was presented today July 05, 2024 for interpretation. Stat results provided at this time as requested by referring provider. Electronically signed by: Sherly Vivar MD 07/05/2024 02:09 PM ZORAIDA BOUCHER
== END 2024-07-05 10:13 | disposition home or self-care (01) ==
LOC: HO.XRAY 10:12
PROVIDERS: PCP Nurse Practitioner Family; Visit Provider Hospitalist
DX: J18.9 Pneumonia, unspecified organism (principal); R09.02 Hypoxemia
CPT/HCPCS: 71046

== ENCOUNTER 2024-07-07 10:27 | Outpatient (REF) | payer MEDICARE, SELFPAY | END 2024-07-07 10:28 | disposition home or self-care (01) | LOC: HO.LNP 10:27 | PROVIDERS: PCP Nurse Practitioner Family; Visit Provider Nurse Practitioner Family | DX: J84.9 Interstitial pulmonary disease, unspecified (principal); Z87.09 Personal history of other diseases of the respiratory system; R05.9 Cough, unspecified | CPT/HCPCS: 87070; 87205; 99212 ==

== ENCOUNTER 2024-07-07 10:27 | Outpatient (AMB) | payer MEDICARE, SELFPAY ==
--- NOTE | 2024-07-07 10:31 | MHC.OFFVIS ---
Vital Signs 07/07/24 10:32 Height 5 ft 9 in Weight 195 lb 8 oz BMI 28.9 BP 118/76 Blood Pressure Location Lt brachial Position Sitting Pulse 77 Pulse Source Pulse Oximeter Pulse Oximetry (%) 96 Oxygen Delivery Method Nasal Cannula Oxygen Flow Rate 1.5 Intake Visit Reasons: difficulty breathing Allergies morphine [MORPHINE] Allergy (Intermediate, Verified 07/07/24 10:39) HR DROPPED azithromycin Adverse Reaction (Intermediate, Verified 07/07/24 10:39) Joint Pain clarithromycin [Prevpac] Adverse Reaction (Intermediate, Verified 07/07/24 10:39) depression (after taking for a few days) - includes most PPI lansoprazole [Prevpac] Adverse Reaction (Intermediate, Verified 07/07/24 10:39) depression (after taking for a few days) - includes most PPI ranitidine [Zantac] Adverse Reaction (Intermediate, Verified 07/07/24 10:39) depression (after taking for a few months) Prilosec Adverse Reaction (Intermediate, Uncoded 07/07/24 10:39) depression (after taking for a few days) - includes most PPI HPI HPI difficulty breathing: Details: Chad is a pleasant 69 year old male, never smoker, with h/o gastric MALT lymphoma s/p radiation 2021, seronegative RA on Rituximab q 6 months, ILD, h/o cryptogenic organizing pneumonia and recent acute respiratory failure with hypoxia 04/2024. He is under the care of Dr. Rowley and presents today for an acute visit. In May he was prescribed Augmentin x 14 days however after 7 days he discontinued because he was feeling well. Less than a week later symptoms recurred with fatigue, chest congestion, dry cough and intermittent wheezing. He was treated with Vantin however symptoms continued to worsen for the first 5 days then noticed an improvement in symptoms. Unfortunately, symptoms have worsened with chest congestion, tenacious whitish sputum, dyspnea and significant fatigue. He is currently on 12.5 mg of prednisone and has not had rituximab since March, now using oxygen continuously as with any exertion on room air he desaturates to low 80s. He had recent CXR 07/05 which revealed unchanged extensive diffuse interstitial opacities and multifocal opacities. 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 Pneumonia Pleural effusion Rheumatoid arthritis ILD (interstitial lung disease) Right knee meniscal tear Abnormal biliary HIDA scan Kidney stones [place] of foot Bradycardia Left shoulder pain Normal colonoscopy (~08/2011) Lumbar spondylosis Impaired fasting glucose Dyslipidemia Benign essential hypertension History of gastric ulcer Gastritis Internal hemorrhoids Diverticulosis Benign prostatic hyperplasia Alopecia (capitis) totalis History of Lyme disease (~2009) History of hepatitis C Surgical History History of liver biopsy History of prostate surgery Status post left rotator cuff repair (~11/2020) History of esophagogastroduodenoscopy (EGD) (~06/2019) History of medial meniscus repair of left knee (~12/2016) Hx laparoscopic cholecystectomy (~10/2012) History of right inguinal hernia repair (~2011) History of surgery on right wrist Family History Father Gastric cancer Prostate cancer Family/Other Pancreas cancer Brother Skin cancer Social History Household Members: Other Household Members Other:: mother Housing: House Are you a primary care companion to a significant other at home: No Do you presently have visiting nurse or other home services: No Alcohol intake: never Patient Tobacco Use Status: Never used Tobacco e-Cigarette/Vaping Use: Never Used Second Hand Smoke Exposure: No Advance Directives Date on File: 05/03/24 service: Yes Current occupational status: retired Cognitive needs: No Hearing needs: No Vision needs: Yes Review of Systems ENT Reports Normal hearing present Neuro Reports Normal hearing present Physical Exam Vital Signs: Last Vital Signs Pulse 77 07/07/24 10:32 BP 118/76 07/07/24 10:32 Pulse Ox 96 07/07/24 10:32 Oxygen Delivery Method Nasal Cannula 07/07/24 10:32 Oxygen Flow Rate 1.5 07/07/24 10:32 BMI result Body Mass Index 28.9 Const General: cooperative, comfortable, no acute distress and alert Orientation/consciousness: patient oriented x3 Limitations: no limitations HEENT Head: Yes normal to inspection, Yes normocephalic and Yes atraumatic Ears: hearing grossly normal bilaterally and external ears normal Eyes General: appearance normal, both eyes and all related structures Eyelids: Yes eyelids normal Sclerae: sclerae normal EOM: EOMs intact bilaterally Neck Neck: Yes normal visual inspection and Yes no lymphadenopathy Lymphatic: no lymphadenopathy noted Chest Chest palpation & inspection: normal inspection of the chest Resp Effort & Inspection: normal respiratory effort, able to speak in complete sentences, no audible wheezes, Actively coughing Quality: productive, no stridor, not tachypneic, no tripod positioning and no use of accessory muscles Auscultation: crackles (inspiratory) bilateral Cardio Jugular venous distension: no JVD Rate: regular rate Rhythm: regular rhythm Skin Other: warm, dry General skin exam: no rashes or lesions noted Neuro General: patient oriented x3 Cranial nerves: Yes Normal hearing present Cognition (Neuro): normal cognition Gait exam (Neuro): Normal gait present Extrem General: Yes normal to inspection, Yes capillary refill normal, Yes no clubbing, cyanosis or edema and Yes no pedal edema Psych Appearance: grossly normal and well kempt Speech and movement: Normal speech and movement present and Clear speech present Affect: normal affect Attitude: cooperative Thought process: Normal thought process present Thought content: Normal thought content present Insight: Good insight present (Psych) Judgement: Good judgement present (Psych) Results Reviewed Results Reviewed: [address] [address] XRay Report Signed Patient: Chad Cotto MR#: [id number] : 1955 Acct:[id number] Age/Sex: 69 / M ADM Date: 07/05/24 Loc: HO.XRAY Attending Dr: Chato Rowley MD Ordering Physician: Chato Rowley MD Date of Service: 07/05/24 Procedure(s): XR chest 2V Accession Number(s): [id number] cc: Rudolph Kumari-; Chato Rowley MD~ EXAMINATION: XR CHEST CLINICAL INFORMATION: Pneumonia, unspecified organism. COMPARISON: 05/19/2024, 05/17/2024, 04/29/2024. TECHNIQUE: 2 views of the chest were obtained. FINDINGS: Dextroscoliosis of the thoracic spine with multilevel degenerative changes. There is no gross pneumothorax. Stable cardiomediastinal silhouette. Heart size normal. Similar appearance of extensive diffuse bilateral interstitial opacities and multifocal airspace opacities. No significant pleural effusion. XR/XR chest 2V IMPRESSION: Similar appearance of extensive diffuse bilateral interstitial opacities and patchy multifocal airspace opacities. This study was presented today July 05, 2024 for interpretation. Stat results provided at this time as requested by referring provider. Electronically signed by: Sherly Vivar MD 07/05/2024 02:09 PM EST RP Dictated By: Sherly Vivar MD Signed By: <Electronically signed by Sherly Vivar MD in OV> 07/05/24 1409 DD/ 1017 TD/TT: 07/05/24 1027 Registered Nurse Bone Marrow Transplant: Assessment & Plan Assessment & Plan (1) ILD (interstitial lung disease): Code(s): J84.9 - Interstitial pulmonary disease, unspecified Category: Medical (2) History of acute respiratory distress syndrome (ARDS): Code(s): Z87.09 - Personal history of other diseases of the respiratory system Category: Medical Plan Attempted sputum culture in office and patient was given sputum cup to provide sample at home as unsure if sample was sufficient. Will call with results. We did discuss the possibility of worsening fatigue as his rituximab has been on hold and he has been tapering prednisone. Advised patient to increase to 20 mg of prednisone for the next week and call with an update on symptoms. He is aware to seek emergent care if symptoms worsen. All questions were answered and patient is in agreement of plan. Will follow up with Dr. Rowley for regularly scheduled appointment in two weeks or sooner if needed. Orders: Orders Sputum Cult + Gram stain Today R05.9 - Cough, unspecified Coding Level of Care Code Est Pt Level 4 (67261) Complex EM visit Add On G2211 Diagnoses ILD (interstitial lung disease) J84.9 History of acute respiratory distress syndrome (ARDS) Z87.09
[2024-07-07 10:32] VITALS: BP 118/76; PULSE 77; O2SAT 96; BMI 28.9
== END 2024-07-07 11:12 | disposition home or self-care (01) ==
PROVIDERS: PCP Nurse Practitioner Family; Visit Provider Nurse Practitioner Family
DX: J84.9 Interstitial pulmonary disease, unspecified (principal); Z87.09 Personal history of other diseases of the respiratory system
CPT/HCPCS: 99214; G2211

== ENCOUNTER 2024-07-16 13:37 | Outpatient (REF) | payer MEDICARE, SELFPAY ==
[2024-07-16 13:50] LABS: MANUAL DIFF FLAG NO
[2024-07-16 14:56] LABS: Basophils Percent Auto 0.2 % (0-2); Eosinophils Percent Auto 0.2 % (0-4); Hematocrit 42.5 % (42.0-52.0); Hemoglobin 14.3 g/dl (14.0-18.0); Imm Gran Abs Auto 0.09 X10*3/uL (0.00-0.03); Imm Gran Pct Auto 0.7 % (0.0-0.4); Lymphocytes Absolute Auto 0.6 X10*3/uL (1.2-4.9); Lymphocytes Percent Auto 4.6 % (20-40); Mean Corpuscular HGB Conc 33.6 g/dl (31.0-36.0); Mean Corpuscular Hemoglobin 29.7 pg (27.0-33.0); Mean Corpuscular Volume 88.2 fL (80.0-98.0); Mean Platelet Volume 11.2 fL (9.4-12.4); Monocytes Absolute Auto 0.9 X10*3/uL (0.1-1.2); Monocytes Percent Auto 7.5 % (2-11); Neutrophils Absolute Auto 10.9 x10*3/uL (2.0-8.3); Neutrophils Percent Auto 86.8 % (45-73); Platelet Count 246 X10*3/uL (160-400); Red Blood Count 4.82 X10*6/uL (4.60-5.80); Red Cell Distribution Width 14.5 % (11.0-16.0); White Blood Count 12.6 X10*3/uL (4.8-10.8)
[2024-07-16 14:57] LABS: Alanine Aminotransferase 43 U/L (0-40); Albumin Level 4.3 g/dL (3.5-5.0); Alkaline Phosphatase 46 U/L (39-117); Anion Gap 12 (12-20); Aspartate Amino Transferase 34 U/L (5-37); Bilirubin Total 0.6 mg/dL (0.0-1.0); Blood Urea Nitrogen 22 mg/dL (9-16); C Reactive Protein 1.96 mg/dL (< or = 0.50); Carbon Dioxide 24 mmol/L (22-29); Chloride 107 mmol/L (96-108); Estimated Glomerular Filt Rate > 60; Glucose Random 114 mg/dL (60-115); Potassium 4.1 mmol/L (3.3-5.1); Sodium 139 mmol/L (135-145); Total Protein 7.3 g/dL (6.5-8.0)
[2024-07-16 15:31] LABS: Erythrocyte Sedimentation Rate 11 MM/HR (0-15)
[2024-07-19 12:54] LABS: Prot Elec - Albumin 4.4 g/dL (3.8-4.8); Prot Elec - Alpha1 0.4 g/dL (0.2-0.3); Prot Elec - Alpha2 0.9 g/dL (0.5-0.9); Prot Elec - Beta 1 0.4 g/dL (0.4-0.6); Prot Elec - Beta 2 0.3 g/dL (0.2-0.5); Prot Elec - Gamma 0.8 g/dL (0.8-1.7); Prot Elec - Total Protein 7.2 g/dL (6.1-8.1)
[2024-07-20 18:32] LABS: IgA 89 mg/dL (70-320); IgG 844 mg/dL (600-1540); IgM 59 mg/dL (50-300)
== END 2024-07-16 13:38 | disposition home or self-care (01) ==
LOC: HO.LAB 13:37
PROVIDERS: PCP Nurse Practitioner Family; Visit Provider Student in an Organized Health Care Education/Training Program
DX: M06.00 Rheumatoid arthritis without rheumatoid factor, unspecified site (principal)
CPT/HCPCS: 36415; 80053; 82784; 84165; 85025; 85652; 86140; 86334

== ENCOUNTER 2024-07-20 15:18 | Outpatient (AMB) | payer MEDICARE, SELFPAY ==
--- NOTE | 2024-07-20 15:29 | A.OFFVIS_ITS ---
Vital Signs 07/20/24 15:30 Weight 192 lb 14.472 oz BP 138/78 Blood Pressure Location Rt brachial Position Sitting Pulse 77 Pulse Oximetry (%) 96 Oxygen Delivery Method Room Air Intake Visit Reasons: COPD Allergies morphine [MORPHINE] Allergy (Intermediate, Verified 07/20/24 15:34) HR DROPPED azithromycin Adverse Reaction (Intermediate, Verified 07/20/24 15:34) Joint Pain clarithromycin [Prevpac] Adverse Reaction (Intermediate, Verified 07/20/24 15:34) depression (after taking for a few days) - includes most PPI lansoprazole [Prevpac] Adverse Reaction (Intermediate, Verified 07/20/24 15:34) depression (after taking for a few days) - includes most PPI ranitidine [Zantac] Adverse Reaction (Intermediate, Verified 07/20/24 15:34) depression (after taking for a few months) Prilosec Adverse Reaction (Intermediate, Uncoded 07/20/24 15:34) depression (after taking for a few days) - includes most PPI Medication List - Last Reconciled 07/20/24 by Kaylin Blanco LPN amlodipine 5 mg PO DAILY cefpodoxime 200 mg PO BID Oxygen Home Use As directed prednisone See Taper mg PO DIRECTED prednisone 10 mg PO DAILY 30 days prednisone 5 mg (2 x 2.5 mg) PO DAILY 30 days HPI Comments Details: The patient is a 69-year-old gentleman here for evaluation of an abnormal CT scan of the chest. The patient was in usual state health until in 2021 when he underwent a screening endoscopy for the evaluation reflux disease. 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 The patient did undergo radiation therapy. He was also referred to Oncology. Further workup included a PET scan. This was done in July 2022 and I did review the results. No significant FDG activity in the parenchymal lung tissue and no abnormalities noted. The patient did not have any significant lymphadenopathy either. Subsequently after that in September he had a CT scan of the abdomen and pelvis that demonstrated some lung cuts with bilateral areas of airspace disease and consolidations. Patient was asymptomatic. He was placed on antibiotics at that time and he started expectorating some. He was not having any respiratory issues at that time. Subsequently the patient developed the flu she started developing significant myalgia and fatigue arthralgias and was not feeling well. After that he started having worsening cough and shortness of breath and was not feeling well. He started developing pleuritic discomfort. He had a repeat CT scan at that time in October 2022 which was personally by me now demonstrating bilateral peripheral patchy consolidations with some cavitations which appears to me more likely a component of post viral Staph aureus infection. That or some degree of bacteremia. The patient was having significant symptoms and he was seen by urgent care with placement 7 days of Bactrim and also prednisone and he is significantly better at this time. Therefore likely that by treating the likely staph infection is feeling better. That being said he was having some findings on the CT scan of the abdomen prior to being sick. The question still stands is could he have some underlying bronch is associated lymphoma in addition to the gastric lymphoma of the very unlikely. Based on the fact the patient is feeling better on the Bactrim will going to extend the course the Bactrim to treating for total 21 days. Then we will repeat the imaging studies as long as he is doing well. If the patient is not doing well then we will consider bronchoscopy earlier on. Otherwise will repeat the CT scan in around 6 weeks to see if she still has any residual findings and if he does will go ahead and intervene with a diagnostic bronchoscopy. 08/27/2023 the patient is here for pulmonary follow-up visit. The patient overall has been doing fairly well. Recently he started noticing increasing chest congestion. But minimal. The patient continues to be on 10 mg of prednisone. He is status post the Rituxan injection about 6-8 weeks ago. He does have blood work and a follow-up with his filling station laborer soon. In the meantime we did have him go for a chest x-ray appears that he has had a slight increase in the airspace disease primarily on the right lower lobe and also rig ht mid area. This is only minimal degree. Still, will continue to monitor his symptoms and will have a repeat chest x-ray in 3-4 weeks. He is going to see his filling station laborer as well. In case his symptoms are worsening further adjustments of his medications may be warranted. But I am hopeful that he can continue on the lower dose prednisone specially with significant cushingoid appearance and high risk for adverse effects from the chronic prednisone use. Denies any fevers or chills low threshold to start antibiotics if his symptoms worsen. 10/29/2023 the patient is here for a pulmonary follow-up visit. Overall he is doing well. He continues on 10 mg of prednisone. He did follow-up with Rheumatology. Pretty happy with his results with rituximab. He did have a recent chest x-ray. We did personally reviewed. Those changes that he had as far as the opacity in the right hemithorax have improved. Overall his x-ray looks a lot better. Still getting some left-sided pleuritic chest discomfort. He did see Oncology and he was ordered to have a CT scan of chest sometime in November. In the meantime will start decreasing the prednisone some very slowly. Will try by 1 mg every 2 weeks to try to decrease at least to 7 mg. Will try to find the lowest most effective dose. If the patient has any trouble doing this he will call. Otherwise the patient does have some snoring. Denies any significant daytime drowsiness. Gleason score is only 5/24. Therefore hold off on a sleep study. He has had some weight gain likely from the steroids. Therefore if he does have an increased cardiovascular risk factors home sleep study will be helpful. 03/02/2024 the patient is here for a pulmonary follow-up visit. He continues to do well. He is on 5 mg of prednisone. We have been slowly decreasing it to avoid any rebound effect. Still reassuring. He had a repeat CT scan of the chest which is extremely better. A lot of the nodular densities have resolved. Therefore, going to continues work down to decrease the prednisone slowly. If the patient develops any symptoms in the process he can always call. As he decrease the prednisone he will monitor for any symptoms of adrenal insufficiency. If he has any issues or symptoms of any concerns she will call the office. 05/26/2024 the patient is here for hospital follow-up visit. He has severe COVID with significant ARDS. Has been on prednisone taper. He has been on the oxygen supplementation. We did taken for 6 minute walk test today. The patient did not qualify for a portable oxygen concentrator but we are able to decrease his oxygen to 4 L continuous with activity. He can be on room air at rest. This is good seems to be getting better. In addition to that he can use the oxygen to sleep with. He is currently on prednisone 15 mg. He can get his flu shot now. In addition to that the patient will taper down by 2.5 once a week until he is down to 10 mg and then stay on 10 mg. Patient will follow-up with me in a couple weeks. At that point will reassess for his next Rituxan dose. I am hoping that he can get vaccinated before his next dose. As far as the COVID will go ahead and check his COVID antibodies if his COVID antibodies are negative he will need to get another vaccine. Otherwise if his positive then have to wait at least 90 days from his last infection to be able to take the vaccine. We did look at his x-ray. Does have significant interstitial disease from his recent COVID on top of the interstitial lung disease at baseline. I did reassure him that he will continue to get better although is going to be a slow recovery. Based on his significant COVID he needs to start pulmonary rehabilitation. He is agreeable to this and will try to move him along to start rehab as soon as possible. 07/20/2024 the patient is here for pulmonary follow-up visit. He is finally feeling a little better. He has some difficult few months and weeks because of worsening chest congestion shortness of breath. Multiple courses of antibiotics without any significant improvement. Now after going up on the prednisone to 20 mg he starting to feel little better. He also been feeling depressed lately. He is not sure if his medication reaction to the amlodipine that. Therefore he stopped the blood pressure medication at this time. He states he is already feeling better. He does have shortness breath with activity [id number] severity. He does have a hard time carrying the oxygen tanks. Therefore we did a titration study with a conserving device and he actually did good on 2 L pulse maintaining a pulse ox of 91% with activity. Therefore will request a POC for better portability outside of the home from his [employer] company, [employer]. He also continues use the oxygen at nighttime with good effect. Soon he will be starting on a new medication for his going to give tissue disease as he has been taken off the Rituxan because of the immunosuppressive complication that he has had throughout the few months. In addition to that he was scheduled for bronchoscopy because his ongoing symptoms for deep cultures. However, will go ahead and hold off on the bronchoscopy at this point since he is doing a little better. Patient will come back in 4 weeks and will have him get an x-ray prior to that. 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 Pneumonia Pleural effusion ILD (interstitial lung disease) Right knee meniscal tear Abnormal biliary HIDA scan Kidney stones [place] of foot Bradycardia Left shoulder pain Normal colonoscopy (~08/2011) Lumbar spondylosis Impaired fasting glucose Dyslipidemia Benign essential hypertension History of gastric ulcer Gastritis Internal hemorrhoids Diverticulosis Benign prostatic hyperplasia Alopecia (capitis) totalis History of Lyme disease (~2009) History of hepatitis C Surgical History History of liver biopsy History of prostate surgery Status post left rotator cuff repair (~11/2020) History of esophagogastroduodenoscopy (EGD) (~06/2019) History of medial meniscus repair of left knee (~12/2016) Hx laparoscopic cholecystectomy (~10/2012) History of right inguinal hernia repair (~2011) History of surgery on right wrist Family History Father Gastric cancer Prostate cancer Family/Other Pancreas cancer Brother Skin cancer Social History Household Members: Other Household Members Other:: mother Housing: House Are you a primary career development associate to a significant other at home: No Do you presently have visiting nurse or other home services: No Alcohol intake: never Patient Tobacco Use Status: Never used Tobacco e-Cigarette/Vaping Use: Never Used Second Hand Smoke Exposure: No Advance Directives Date on File: 05/03/24 service: Yes Current occupational status: retired Cognitive needs: No Hearing needs: No Vision needs: Yes Review of Systems Const Denies excessive sweating, Denies fever(s), Denies headache(s) and Denies night sweats Eyes Denies itchy eyes ENT Reports Normal hearing present, Denies headache(s), Denies nasal discharge, Denies post nasal drip and Denies sore throat Card Denies chest pain, Denies chest pain at rest, Denies chest pain with activity, Denies claudication, Denies leg edema, Reports dyspnea on exertion, Denies orthopnea and Denies paroxysmal nocturnal dyspnea Resp Reports chest congestion, Reports cough, Denies excessive phlegm production, Denies pain on inspiration, Denies pain with cough, Reports dyspnea on exertion and Denies stridor Neuro Reports Normal hearing present and Denies headache(s) Endo Denies excessive sweating Edwin/Lymph Denies lymphadenopathy Aller/Immun Denies itchy eyes and Denies seasonal rhinorrhea Physical Exam Vital Signs: Last Vital Signs Pulse 77 07/20/24 15:30 BP 138/78 07/20/24 15:30 Pulse Ox 96 07/20/24 15:30 Oxygen Delivery Method Room Air 07/20/24 15:30 Last Vital Signs Temp 97.4 F 04/29/24 08:00 Pulse 53 04/29/24 08:00 Resp 20 04/29/24 08:00 BP 139/79 04/29/24 08:00 Pulse Ox 87 L 04/29/24 08:00 O2 Del Method Oxymask 04/29/24 08:00 O2 Flow Rate 7 04/29/24 08:00 BMI result Body Mass Index 27.1 Const Other: Awake alert; able to speak short sentences General: cooperative and healthy appearing Nutritional Appearance: well nourished Orientation/consciousness: patient oriented x3 Limitations: no limitations HEENT Head: Yes normal to inspection Eyes General: appearance normal, both eyes and all related structures Neck Neck: Yes normal visual inspection Chest Chest palpation & inspection: normal inspection of the chest Resp Other: Diminished at bases with diffuse end inspiratory crackles and no expiratory wheezes Effort & Inspection: normal respiratory effort and able to speak in complete sentences Auscultation: diminished lung sounds Cardio Other: No S4; positive S1-S2; no S3 murmurs rubs or gallops Rhythm: regular rhythm Heart sounds: S1 normal heart sound present and S2 normal heart sound present GI Other: Soft nontender nondistended normoactive bowel sounds Palpation (GI): Soft to palpation Skin General skin exam: no rashes or lesions noted Neuro General: patient oriented x3 Cranial nerves: Yes Normal hearing present Extrem Other: No edema bilaterally General: Yes no clubbing, cyanosis or edema Office Procedures 6 Minute Walk Time:: 21:46 SPO2 % at rest: 94 Pulse at rest: 89 SPO2 % during excercise: 88 Pulse during excercise: 98 Distance in yards walked: 300 Bridget Score: 4 Supplemental Oxygen: desaturated to 88% on RA with activity, then placed on 2l/pulse keeping pox 91% with activity [id number] - 6 Minute Walk Assessment & Plan Assessment & Plan (1) ILD (interstitial lung disease): Code(s): J84.9 - Interstitial pulmonary disease, unspecified Category: Medical (2) History of acute respiratory distress syndrome (ARDS): Code(s): Z87.09 - Personal history of other diseases of the respiratory system Category: Medical (3) 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: Code(s): U09.9 - Post COVID-19 condition, unspecified Category: Medical (4) Rheumatoid arthritis: Code(s): M06.9 - Rheumatoid arthritis, unspecified Category: Medical Qualifiers: Rheumatoid arthritis location: unspecified site Rheumatoid factor presence: unspecified presence Qualified Code(s): M06.9 - Rheumatoid arthritis, unspecified Plan Prednisone 20mg daily holding Rituxan due to severe infections Likely to start IL6 inhibitor holding on bronchsocopy Oxygen revision: RA at rest, 2L/pulse with activity, 3 liters with sleep start rehab when stable CXR F/U 4-6 weeks Coding Level of Care Code Est Pt Level 4 (08102) Complex EM visit Add On G2211 Diagnoses ILD (interstitial lung disease) J84.9 History of acute respiratory distress syndrome (ARDS) Z87.09 [id number] syndrome U09.9 Rheumatoid arthritis, involving unspecified site, unspecified whether rheumatoid factor present M06.9 Rheumatoid arthritis location: unspecified site Rheumatoid factor presence: unspecified presence CPT Codes Coding ([id number]) Time Spent (min) 18
[2024-07-20 15:30] VITALS: BP 138/78; PULSE 77; O2SAT 96
[2024-07-20 21:44] VITALS: PULSE 89; O2SAT 94
== END 2024-07-20 16:00 | disposition home or self-care (01) ==
PROVIDERS: PCP Nurse Practitioner Family; Visit Provider Hospitalist
DX: J84.9 Interstitial pulmonary disease, unspecified (principal); Z87.09 Personal history of other diseases of the respiratory system; U09.9 Post COVID-19 condition, unspecified; M06.9 Rheumatoid arthritis, unspecified
CPT/HCPCS: 94618; 99214; G2211

== ENCOUNTER → 2024-07-20 15:18 | Outpatient (BNVA) | payer MEDICARE, SELFPAY | PROVIDERS: PCP Nurse Practitioner Family; Visit Provider Hospitalist | DX: J84.9 Interstitial pulmonary disease, unspecified (principal); U09.9 Post COVID-19 condition, unspecified; Z87.09 Personal history of other diseases of the respiratory system | CPT/HCPCS: 94618; 99212 ==

== ENCOUNTER 2024-07-21 15:17 | Outpatient (AMB) | payer MEDICARE, SELFPAY ==
--- NOTE | 2024-07-21 15:20 | A.OFFVIS_ITS ---
Vital Signs 07/21/24 15:24 Height 5 ft 9 in Weight 194 lb 7.163 oz BMI 28.7 BP 115/72 Blood Pressure Location Rt brachial Position Sitting Pulse 74 Pulse Source Pulse Oximeter Pulse Oximetry (%) 94 Oxygen Delivery Method Room Air Intake Visit Reasons: 5 wks for RA-ILD/cm Intake Note: Patient presents 5 wks for RA-ILD. Allergies morphine [MORPHINE] Allergy (Intermediate, Verified 07/21/24 15:24) HR DROPPED azithromycin Adverse Reaction (Intermediate, Verified 07/21/24 15:24) Joint Pain clarithromycin [Prevpac] Adverse Reaction (Intermediate, Verified 07/21/24 15:24) depression (after taking for a few days) - includes most PPI lansoprazole [Prevpac] Adverse Reaction (Intermediate, Verified 07/21/24 15:24) depression (after taking for a few days) - includes most PPI ranitidine [Zantac] Adverse Reaction (Intermediate, Verified 07/21/24 15:24) depression (after taking for a few months) Prilosec Adverse Reaction (Intermediate, Uncoded 07/20/24 15:34) depression (after taking for a few days) - includes most PPI Medication List - Last Reconciled 07/21/24 by Lee Ann Goyal MD amlodipine 5 mg PO DAILY cefpodoxime 200 mg PO BID Oxygen Home Use As directed prednisone See Taper mg PO DIRECTED prednisone 10 mg PO DAILY 30 days prednisone 5 mg (2 x 2.5 mg) PO DAILY 30 days HPI Comments Details: 69-year-old male with cryptogenic organizing pneumonia and seronegative rheumatoid arthritis returns for follow-up. He is on prednisone 20 mg daily. Denies any joint complaints. He has lost muscle mass and his belly is getting bigger, but he is actually losing weight. He was recently evaluated by Dr. Rowley and states that he did better on the 6 minute walk test. He states that he continues to get short of breath with activity. States that he had depression with amlodipine and the depression resolved when he stopped amlodipine. Initial history: This is a 67-year-old male presents for evaluation of diffuse joint pain. 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 He also has history of alopecia Universalis since 1986. 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 Since then he has limited extension of right wrist. He states that back in August of 2022 he started having right wrist pain and swelling. He was evaluated by [facility] and received an steroid injection in the right wrist which gave him total relief for a few weeks. In September he was having fatigue and some cough. CT chest showed findings suspicious of pneumonia. He received multiple rounds of antibiotics. He also received few courses of prednisone which provided significant relief of his overall joint pain. States that he would have pain in his wrists, hands, stiffness, difficulty closing his fingers, shoulder and elbow stiffness. He was evaluated by [facility] 4 days ago and received 2 injections in the left wrist which gave him dramatic relief of his generalized joint pain and stiffness. Patient is unaware of any family history of autoimmune rheumatic disease. He continues to take meloxicam. 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 Pneumonia Pleural effusion ILD (interstitial lung disease) Right knee meniscal tear Abnormal biliary HIDA scan Kidney stones Dulce of foot Bradycardia Left shoulder pain Normal colonoscopy (~08/2011) Lumbar spondylosis Impaired fasting glucose Dyslipidemia Benign essential hypertension History of gastric ulcer Gastritis Internal hemorrhoids Diverticulosis Benign prostatic hyperplasia Alopecia (capitis) totalis History of Lyme disease (~2009) History of hepatitis C Surgical History History of liver biopsy History of prostate surgery Status post left rotator cuff repair (~11/2020) History of esophagogastroduodenoscopy (EGD) (~06/2019) History of medial meniscus repair of left knee (~12/2016) Hx laparoscopic cholecystectomy (~10/2012) History of right inguinal hernia repair (~2011) History of surgery on right wrist Family History Father Gastric cancer Prostate cancer Family/Other Pancreas cancer Brother Skin cancer Social History Household Members: Other Household Members Other:: mother Housing: House Are you a primary insurance healthcare representative to a significant other at home: No Do you presently have visiting nurse or other home services: No Alcohol intake: never Patient Tobacco Use Status: Never used Tobacco e-Cigarette/Vaping Use: Never Used Second Hand Smoke Exposure: No Advance Directives Date on File: 05/03/24 service: Yes Current occupational status: retired Cognitive needs: No Hearing needs: No Vision needs: Yes Review of Systems Const Reports weight loss Card Reports dyspnea on exertion Resp Denies cough and Reports dyspnea on exertion Musc Denies arthralgias, Denies joint swelling and Denies stiffness Physical Exam Vital Signs: Last Vital Signs Pulse 74 07/21/24 15:24 BP 115/72 07/21/24 15:24 Pulse Ox 94 07/21/24 15:24 Oxygen Delivery Method Room Air 07/21/24 15:24 BMI result Body Mass Index 28.7 Const Other: Slightly cushingoid with early helm facies General: cooperative, healthy appearing, comfortable and no acute distress Nutritional Appearance: overweight Orientation/consciousness: patient oriented x3 Limitations: no limitations HEENT Head: Yes normocephalic and Yes atraumatic Mouth: moist mucous membranes Resp Effort & Inspection: normal respiratory effort and able to speak in complete sentences Auscultation: clear to auscultation bilaterally Cardio Rate: regular rate Rhythm: regular rhythm Skin General skin exam: no rashes or lesions noted Neuro General: patient oriented x3 Extrem Other: Osteoarthritic changes of both hands with no active synovitis Negative straight leg raise test bilaterally No trochanteric bursa area tenderness bilaterally No knee pain with full flexion-extension Osteoarthritic changes of both hands with no active synovitis Assessment & Plan Assessment & Plan (1) Seronegative rheumatoid arthritis: Comment: RTX 1 g X 2 doses 07/2023 1 dose 03/2024 followed by multiple infections Code(s): M06.00 - Rheumatoid arthritis without rheumatoid factor, unspecified site Category: Medical Plan: This is a 69-year-old male with seronegative RA and ILD (cryptogenic organizing pneumonia) (labs showed borderline positive PL-7, ++DsDNA but no other clinical or serologic criteria for lupus) who presents for follow-up.? Patient received 1 dose of rituximab 03/2024, less than 2 weeks after he developed COVID p neumonia, he was hospitalized for a few days for it and discharged on prednisone and oxygen supplementation. Essentially patient had ARDS from COVID. Afterwards patient developed another infection which was treated with outpatient antibiotics. He is now on prednisone 20 mg daily. He is improving overall, but needs a DMARD for steroid sparing Will not restart rituximab at this time given its significant immune suppressive effects. Discussed risks and benefits of Actemra. Patient agreed to proceed. Will start Actemra IV infusions, 8 milligram/kilogram every 4 weeks. I had discussed it with Dr. Rowley Advised patient to call the office about 2 weeks after the 1st infusion and we will plan to taper his prednisone to 15 mg a day Follow-up in 2 months. Labs before next visit Plan I spent 26 minutes reviewing patient's chart, evaluating patient, ordering diagnostic workup, counseling patient and documenting in the chart Orders: Orders Complete Blood Count Auto Diff 2 Months M06.9 - Rheumatoid arthritis, unspecified Erythrocyte Sedimentation Rate 2 Months M06.9 - Rheumatoid arthritis, unspecified Comprehensive Met. Panel 2 Months M06.9 - Rheumatoid arthritis, unspecified C Reactive Protein 2 Months M06.9 - Rheumatoid arthritis, unspecified Coding Level of Care Code Est Pt Level 4 (05134) Diagnoses Seronegative rheumatoid arthritis M06.00
[2024-07-21 15:24] VITALS: BP 115/72; PULSE 74; O2SAT 94; BMI 28.7
--- OUTSIDE RECORDS SUMMARY | 2024-07-22 03:01 | XMS_ITS ---
Author Organization [facility] Address [address] [place] [address] Care Team Providers Care Director Of Communications Name Role Phone SHANITA RODRIGUEZ Primary Care Provider Joshua Downey [phone] REASON FOR VISIT r/s appt Encounters Encounter Location Date Provider Diagnosis [facility] [address] [place] [address] 06/02/2024 Joshua Yuen PLAN OF TREATMENT Next Appt Details Provider Name:Joshua Yuen , 10/05/2024 10:50:00 AM, [address], [address], [place], [address],
--- OUTSIDE RECORDS SUMMARY | 2024-07-22 03:01 | XMS_ITS ---
Author Organization [facility] Address [address] [place] [address] Care Team Providers Care Director Advertising Name Role Phone SHANITA RODRIGUEZ Primary Care Provider Joshua Downey [phone] ALLERGIES Allergen (clinical drug ingredient) Drug/Non Drug Allergy documented on EMR Reaction Allergy Type Onset Date Status morphine Morphine Sulfate Unknown Drug Allergy Active Substance with hydrogen/potassium adenosine triphosphatase enzyme system inhibitor mechanism of action (substance) PPI's (uncoded) Unknown Allergy Active REASON FOR VISIT Patient presents today for Gastric lymphoma,gastric ulcer MEDICATIONS Medication SIG (Take, Route, Fr equency, Duration) Notes Start Date End Date Status predniSONE 20 MG Oral for 30 A ctive Prilosec 20 MG QOD Orally Acti ve PROBLEMS Problem Type ICD Code Onset Dates Problem Status W/U Status Risk SNOMED Code Notes Problem Hiatal hernia (K44.9) Active confirmed Hiatal hernia (26785551) VITAL SIGNS BMI 26.58 kg/m2 06/03/2023 Blood pressure systolic 000 mm Hg 06/03/20 23 Blood pressure diastolic 00 mm Hg 023 Height 69 in 06/03/2023 Temperature 98.7 degrees Fahrenheit 06/03/20 23 Weight 180 lbs 06/03/2023 Encounters Encounter Location Date Provider Diagnosis [facility] [address] [place] [address] 06/03/2023 Joshua Yuen 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 ; Gastric lymphoma C85.93 ; Hiatal hernia K44.9 ; Gastritis K29.70 and History of gastric cancer Z85.028 ASSESSMENTS Encounter Date Diagnosis Assessment Notes Treatment Notes Treatment Clinical Notes 06/03/2023 Cordero esophagus (ICD-10 - K22.70) 06/03/2023 Gastric lymphoma (ICD-10 - C85.93) 06/03/2023 Hiatal hernia (ICD-10 - K44.9) 06/03/2023 Gastritis (ICD-10 - K29.70) 06/03/2023 History of gastric cancer (ICD-10 - Z85.028) PLAN OF TREATMENT Next Appt Details Follow Up: 1 Year, Reason: Provider Name:Joshua Yuen , 10/05/2024 10:50:00 AM, [address], [address], [place], [address], Progress Notes * Examination Category Sub-Category Detail Notes General Examination GENERAL APPEARANCE: pleasant , well nourished, well developed, in no acute distress EYES: sclera non-icteric NECK/THYROID: no cervical lymphade nopathy, neck supple HEART: S1, S2 normal LUNGS: clear to auscultatio n bilaterally ABDOMEN: normal bowel sounds, no guarding or rigidity, no hepatosplenomegaly, no masses palpable, soft, nontender, nondistended. NEUROLOGIC: alert and oriented SKIN: nonjaundiced, no spi raji angiomata. EXTREMITIES: no edema ORAL CAVITY: mucosa moist
--- OUTSIDE RECORDS SUMMARY | 2024-07-22 03:01 | XMS_ITS | Patient Health Record ---
Author Organization [facility] Address [address] [place] [address] Care Team Providers Care Case Coordinator Name Role Phone SHANITA RODRIGUEZ Primary Care Provider Joshua Downey Unavailable [phone] ALLERGIES Allergen (clinical drug ingredient) Drug/Non Drug Allergy documented on EMR Reaction Allergy Type Onset Date Status morphine Morphine Sulfate Unknown Drug Allergy Active Substance with hydrogen/potassium adenosine triphosphatase enzyme system inhibitor mechanism of action (substance) PPI's (uncoded) Unknown Allergy Active REASON FOR REFERRAL No Information MEDICATIONS Medication SIG (Take, Route, Fr equency, Duration) Notes Start Date End Date Status predniSONE 20 MG Oral for 30 A ctive Prilosec 20 MG QOD Orally Acti ve IMMUNIZATIONS Vaccine Route Administration Date Status Comme nts Influenza Unknown 04/11/2021 Administered Influenza Unknown 04/29/2019 Refused SOCIAL HISTORY Sex Assigned At : Social History Observation Description Sex Assigned At Unknown PROBLEMS Problem Type ICD Code Onset Dates Problem Status W/U Status Risk SNOMED Code Notes Problem Encounter for screening for malignant neoplasm of colon (Z12.11) Active confirmed 188069193 Problem 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) Active confirmed 993237720 Problem Gastroesophageal reflux disease, esophagitis presence not specified (K21.9) Active confirmed 954616483 Problem Hiatal hernia (K44.9) Active confirmed Hiatal hernia (93670070) 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 Gastric lymphom a (442563589) Problem Gastritis (K29.70) Active confirmed Gas tritis (9749099) Problem History of gastric cancer (Z85.028) Active confirmed History of malignant neoplasm of stomach (524376380) Problem Dysphagia, unspecified type (R13.10) Active confirmed 24245603 Problem 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 Cordero esophagus (171375049) Problem History of hepatitis C (Z86.19) Active confirmed History of hepatitis C (89392833115718) Problem Gastric ulcer (K25.9) Active confirmed Gastric ulcer (496848348) Problem Diverticulosis of colon (K57.30) Active confirmed Diverticulosi s of colon (344259129) Encounters Encounter Location Date Provider Diagnosis [facility] [address] [place] [address] 06/03/2024 Joshua Yuen [facility] [address] [place] [address] 06/02/2024 Joshua Yuen PLAN OF TREATMENT Pending Test Test Name Order Date LIVER PROFILE 11/29/2021 ALPHA-FETOPROTEIN,TUMOR MARKER 6 US ABDOMEN COMP WITH ELASTOGRAPHY 2021 Future Test Test Name Order Date UPPER GI ENDOSCOPY BALLOOON DILATION OF ESOPH 01/11/2016 UPPER GI ENDOSCOPY 04/29/2019 UPPER GI ENDOSCOPY 11/29/2021 COLONOSCOPY 11/29/2021 UPPER GI ENDOSCOPY 06/27/2022 Next Appt Details Provider Name:Joshua Richey Alpa , 10/05/2024 10:50:00 AM, [address], [address], [place], [address], Insurance Providers Payer Name Payer Address Payer Phone Subscriber Number Group Number Insured Name Patient Relationship to Insured Coverage Start Date Coverage End Date MEDICARE OF [place] [address] [place] [id number] MULUGETA DOVE Self - patient is the insured MEDEX ATTN CLAIMS [address] [place] [address] [phone] [id number] MULUGETA DOVE Self - patient is the insured MEDICAL (GENERAL) HISTORY Medical History History ICD Code Previous history of hepatiti s C in the , that was treated successfully with a course of the non-pegylated interferon and ribavirin in 1998-his most recent liver biopsy in 1997 revealed evidence of fatty liver, and mild hepatitis and fibrosis, without any evidence of cirrhosis. His last alpha-fetoprotein level was normal in March of 2011 and a liver profile was normal at that time as well. He had a nondetectable Hep C viral load in 03/2011, and a normal liver profile and nondetectable hepatitis C viral load in September of 2015. Negative screening colonoscopy in 2011 Over the previous years he f elt that he had had a chemical exposure at work that left him with a myriad of symptoms, which ultimately had resolved--but now medications, including PPIs, and bicycling will lead to symptoms of sysytemic illness--lasts for up to 3 days Denies AL,DM,CVA,Lung disease,renal dise ase EGD in 06/2012 with finding of a HH, esophagitis, Cordero's(neg. dysplasia),small gastric ulcer,gastric biopsies neg. for H.pylori. hx of kidney stones EGD in 02/2016 with small to moderate-sized hiatal hernia and a small area of Cordero's--biopsies neg. for dysplasia; biopsies from the proximal esophagus were negative for eosinophilic esophagitis EGD in 06/2019 with similar results as a yanely Negative screening colonoscopy in December of 2021 EGD in December of 2021 revealed his known small area of Cordero's with biopsies negative for dysplasia, but also revealed a small proximal gastric ulcer with biopsies revealing lymphoma. Gastric biopsies were negative for H. pylori. Gastric lymphoma as above di agnosed in December of 2021--treated with Dr. Greene and completed radiation treatments in April of 2022 EGD 08/2022 negative for lymphoma and Hpy braulio Developed Pneumonia and Rheu matoid arthritis in 09/2022--treated with steroids and going to start IV Rituximab with Dr. Arellano from rheumatology Surgical History Surgery Date(Month/Year) Hernia surgery-right inguinal Prostate surgery Wrist surgery [facility] on 10/14/[address] Pate for RUQ pain and abnormal HIDA with decreased ejection fraction Left knee Rotator cuff repair left 11/2020
--- OUTSIDE RECORDS SUMMARY | 2024-07-22 03:01 | XMS_ITS ---
Author Organization [facility] Address [address] [place] [address] Care Team Providers Care Ion Implant Machine Operator Name Role Phone SHANITA RODRIGUEZ Primary Care Provider Joshua Downey [phone] REASON FOR VISIT Patient presents today for gastric ulcer Encounters Encounter Location Date Provider Diagnosis [facility] [address] [place] [address] 06/03/2024 Joshua Yuen PLAN OF TREATMENT Next Appt Details Provider Name:Joshua Yuen , 10/05/2024 10:50:00 AM, [address], [address], [place], [address],
== END 2024-07-21 15:52 | disposition home or self-care (01) ==
PROVIDERS: PCP Nurse Practitioner Family; Visit Provider Student in an Organized Health Care Education/Training Program
DX: M06.00 Rheumatoid arthritis without rheumatoid factor, unspecified site (principal)
CPT/HCPCS: 99214

== ENCOUNTER → 2024-07-21 15:17 | Outpatient (BNVA) | payer MEDICARE, SELFPAY | PROVIDERS: PCP Nurse Practitioner Family; Visit Provider Student in an Organized Health Care Education/Training Program | DX: M06.00 Rheumatoid arthritis without rheumatoid factor, unspecified site (principal) | CPT/HCPCS: 99212 ==

== ENCOUNTER 2024-07-30 18:45 | Emergency (ER) | payer MEDICARE, SELFPAY ==
--- OUTSIDE RECORDS SUMMARY | 2024-07-30 18:47 | XMS_ITS ---
Author Organization [facility] Address [address] [place] [address] Care Team Providers Care Placing Judge Name Role Phone SHANITA RODRIGUEZ Primary Care Provider Joshua Downey [phone] REASON FOR VISIT r/s appt Encounters Encounter Location Date Provider Diagnosis [facility] [address] [place] [address] 06/02/2024 Joshua Yuen PLAN OF TREATMENT Next Appt Details Provider Name:Joshua Yuen , 10/05/2024 10:50:00 AM, [address], [address], [place], [address],
--- OUTSIDE RECORDS SUMMARY | 2024-07-30 18:47 | XMS_ITS | Patient Health Record ---
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) Active confirmed 943507092 Problem Gastroesophageal reflux disease, esophagitis presence not specified (K21.9) Active confirmed 643063580 Problem Hiatal hernia (K44.9) Active confirmed Hiatal hernia (72488468) 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 Gastric lymphom a (189348408) Problem Gastritis (K29.70) Active confirmed Gas tritis (0458948) Problem History of gastric cancer (Z85.028) Active confirmed History of malignant neoplasm of stomach (181044625) Problem Dysphagia, unspecified type (R13.10) Active confirmed 90177650 Problem 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 Cordero esophagus (566643656) Problem History of hepatitis C (Z86.19) Active confirmed History of hepatitis C (11089460950319) Problem Gastric ulcer (K25.9) Active confirmed Gastric ulcer (454790095) Problem Diverticulosis of colon (K57.30) Active confirmed Diverticulosi s of colon (864270179) Encounters Encounter Location Date Provider Diagnosis [facility] [address] [place] [address] 06/03/2024 Joshua Yuen [facility] [address] [place] [address] 06/02/2024 Joshua Yuen PLAN OF TREATMENT Pending [...] Richey Alpa , 10/05/2024 10:50:00 AM, [address], [address], [place], [address], Insurance Providers Payer Name Payer Address Payer Phone Subscriber Number Group Number Insured Name Patient Relationship to Insured Coverage Start Date Coverage End Date MEDICARE OF [place] [address] [place] [address] [phone] [id number] MULUGETA DOVE Self - patient is the insured MEDEX ATTN CLAIMS [address] [place] [address] [id number] MULUGETA DOVE Self - patient is the [...] illness--lasts for up to 3 days Denies [place],DM,CVA,Lung disease,renal dise ase EGD in 06/2012 with [...]
--- OUTSIDE RECORDS SUMMARY | 2024-07-30 18:47 | XMS_ITS ---
Author Organization [facility] Address [address] [place] [address] Care Team Providers Care Nutrition Helper Name Role Phone SHANITA RODRIGUEZ Primary Care Provider Joshua Downey [phone] ALLERGIES Allergen (clinical drug ingredient) Drug/Non Drug [...] Hiatal hernia (K44.9) Active confirmed Hiatal hernia (26347428) VITAL SIGNS BMI 26.58 kg/m2 06/03/2023 Blood pressure systolic 000 mm Hg 06/03/20 23 Blood pressure diastolic 00 mm Hg 023 Height 69 in 06/03/2023 Temperature 98.7 degrees Fahrenheit 06/03/20 23 Weight 180 lbs 06/03/2023 Encounters Encounter Location Date Provider Diagnosis [facility] [address] [place] [address] 06/03/2023 Joshua Yuen 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
--- NOTE | 2024-07-30 18:50 | ED.GENADULT ---
HPI - General Adult General Chief complaint: General Medical Stated complaint: High BP ? reaction to infusion Time Seen by Provider: 07/30/24 21:49 Source: patient Mode of arrival: ambulatory Limitations: no limitations History of Present Illness ED Provider: HPI narrative: Patient's history of hypertension rheumatoid arthritis blood pressure stable on losartan 25 mg daily started Actemra for rheumatoid arthritis 4 months ago received the infusion yesterday today checked his blood pressure was elevated 190/100 on arrival it was 195/with pulse rate of 70 repeat blood pressure during stay in the ER was 163/87 further decreased to 152/81 Related Data Home Medications ?Medication ?Instructions ?Recorded ?Confirmed Oxygen Home Use 05/26/24 07/20/24 Previous Rx's ?Medication ?Instructions ?Recorded prednisone 10 mg tablet See Taper PO DIRECTED #50 tabs 04/30/24 prednisone 10 mg tablet 10 mg PO DAILY 30 days #30 tabs 05/26/24 prednisone 2.5 mg tablet 5 mg (2 x 2.5 mg) PO DAILY 30 days 05/26/24 #60 tabs cefpodoxime 200 mg tablet 200 mg PO BID #20 tabs 06/23/24 losartan 25 mg tablet 25 mg PO DAILY 90 days #90 tabs 07/22/24 Allergies Allergy/AdvReac Type Severity Reaction Status Date / Time morphine [MORPHINE] Allergy Intermediate HR DROPPED Verified 07/30/24 18:52 amlodipine AdvReac Intermediate Depression Verified 07/30/24 18:52 azithromycin AdvReac Intermediate Joint Pain Verified 07/30/24 18:52 clarithromycin [Prevpac] AdvReac Intermediate depression Verified 07/30/24 18:52 (after taking for a few days) - includes most PPI lansoprazole [Prevpac] AdvReac Intermediate depression Verified 07/30/24 18:52 (after taking for a few days) - includes most PPI ranitidine [Zantac] AdvReac Intermediate depression Verified 07/30/24 18:52 (after taking for a few months) Prilosec AdvReac Intermediate depression Uncoded 07/30/24 18:52 (after taking for a few days) - includes most PPI Review of Systems Review of Systems: Yes all other systems are reviewed and are negative PMFSH Past Medical History Medical History Rheumatoid arthritis 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 Pneumonia Pleural effusion ILD (interstitial lung disease) Right knee meniscal tear Abnormal biliary HIDA scan Kidney stones [place] of foot Bradycardia Left shoulder pain Normal colonoscopy (~08/2011) Lumbar spondylosis Impaired fasting glucose Dyslipidemia Benign essential hypertension History of gastric ulcer Gastritis Internal hemorrhoids Diverticulosis Benign prostatic hyperplasia Alopecia (capitis) totalis History of Lyme disease (~2009) History of hepatitis C Surgical History History of liver biopsy History of prostate surgery Status post left rotator cuff repair (~11/2020) History of esophagogastroduodenoscopy (EGD) (~06/2019) History of medial meniscus repair of left knee (~12/2016) Hx laparoscopic cholecystectomy (~10/2012) History of right inguinal hernia repair (~2011) History of surgery on right wrist Family History Family History Father Gastric cancer Prostate cancer Family/Other Pancreas cancer Brother Skin cancer Social History Social History Household Members: Other Household Members Other:: mother Housing: House Are you a primary customer care manager to a significant other at home: No Do you presently have visiting nurse or other home services: No Alcohol intake: never Patient Tobacco Use Status: Never used Tobacco Smoked in Last 30 Days: No e-Cigarette/Vaping Use: Never Used Second Hand Smoke Exposure: No Use of substances other than those prescribed or required for medical reasons: No Advance Directives: Yes Advance Directives on File: Yes Advance Directives Date on File: 05/03/24 service: Yes Current occupational status: retired Cognitive needs: No Hearing needs: No Vision needs: Yes Physical Exam ED Vital Signs: Vital Signs - 24 hr 07/30/24 18:51 07/30/24 22:17 07/30/24 22:23 Temperature 97.5 F 97.7 F 97.7 F Pulse Rate 70 62 62 Respiratory Rate 20 16 16 Blood Pressure 195/100 H 167/88 H 167/88 H Pulse Oximetry 97 94 94 Oxygen Delivery Method Room Air Room Air Room Air BMI result Body Mass Index 26.6 Appearance: Alert. Oriented X3. No acute distress. Eyes: PERRLA, No Nystagmus ENT: Pharynx normal. Oral Mucosa moist Neck: Normal inspection. Neck supple. CVS: Normal heart rate and rhythm. Pulses normal. Respiratory: No respiratory distress. Equal air entry bilateral, no wheezing/rales/rhonchi Abdomen: Soft and nontender. Bowel sounds are present, no mass palpable, no CVA tenderness Skin: Skin warm and dry. Normal skin color. Normal skin turgor. Extremities: No lower extremity edema. No calf tenderness Neuro: Oriented X 3. No motor deficit. No sensory deficit.No cerebellar signs , cranial nerves II-XII intact Course Course Course Narrative: This is a rapid medical exam performed by Marya Sands NP: Additional HPI, ROS, PE not included below will be deferred to primary provider. Patient is a 69-year-old male with history of RA, ILD, HTN presenting to the ED with complaint of elevated BP reading at home, feeling jittery. Had first time infusion of Actemra yesterday, was advised this could elevate his BP. States he has HTN but BP is typically well controlled. BP 195/100 in triage. Denies headache, chest pain. Plan: EKG, labs Medical Decision Making Medical Decision Making MDM Narrative: Patient has essential hypertension at transient increased in blood pressure advised to increase dose of losartan to 50 mg and follow up with the PCP Lab Data [facility] Lab Attestation statement: I reviewed the patient's lab results. 07/30/24 19:20 07/30/24 19:20 Labs: Lab Results 07/30/24 Range/Units 19:20 WBC 7.2 (4.8-10.8) X10*3/uL RBC 4.72 (4.60-5.80) X10*6/uL Hgb 14.3 (14.0-18.0) g/dl Hct 41.1 L (42.0-52.0) % MCV 87.1 (80.0-98.0) fL MCH 30.3 (27.0-33.0) pg MCHC 34.8 (31.0-36.0) g/dl RDW 14.1 (11.0-16.0) % Plt Count 176 (160-400) X10*3/uL MPV 10.2 (9.4-12.4) fL Immature Gran % (Auto) 0.4 (0.0-0.4) % Neut % (Auto) 77.5 H (45-73) % Lymph % (Auto) 8.9 L (20-40) % [place] % (Auto) 11.1 H (2-11) % Eos % (Auto) 1.5 (0-4) % Baso % (Auto) 0.6 (0-2) % Lymph # (Auto) 0.6 L (1.2-4.9) X10*3/uL [place] # (Auto) 0.8 (0.1-1.2) X10*3/uL Eos # (Auto) 0.1 (0.0-0.4) X10*3/uL Baso # (Auto) 0.0 (0.0-0.2) X10*3/uL Abs Immat Gran (auto) 0.03 (0.00-0.03) X10*3/uL Absolute Neuts (auto) 5.6 (2.0-8.3) x10*3/uL Absolute Nucleated RBC 0.000 (0.0-0.012) X10*3/uL Nucleated RBC % (auto) 0.0 (0.0-0.2) /100WBC Sodium 140 (135-145) mmol/L Potassium 3.7 (3.3-5.1) mmol/L Chloride 110 H (96-108) mmol/L Carbon Dioxide 20 L (22-29) mmol/L Anion Gap 14 (12-20) BUN 25 H (9-16) mg/dL Creatinine 1.10 (0.5-1.4) mg/dL Estim Creat Clear Calc 61.5 Estimated GFR > 60 Random Glucose 103 (60-115) mg/dL Calcium 9.1 D (8.4-10.2) mg/dL Total Bilirubin 0.3 (0.0-1.0) mg/dL AST 40 H (5-37) U/L ALT 53 H (0-40) U/L Alkaline Phosphatase 42 (39-117) U/L Troponin I High Sens 6.6 (<3.5-35.0) ng/L Total Protein 6.7 (6.5-8.0) g/dL Albumin 4.1 (3.5-5.0) g/dL Independent Interpretation I performed an independent interpretation of an: EKG Interpretation: Normal sinus rhythm heart rate 60 beats per minute normal interval normal axis LVH no acute ischemic changes Discharge Plan Discharge Clinical Impression: Benign essential hypertension Patient Disposition: Home, Self-Care Instructions: Chronic Hypertension (ED) Additional Instructions: Decrease the salt intake Check blood pressure before taking the medication you should be less than 135/85 event persistently higher than that increase the dose of losartan to 50 mg daily Check blood pressure at least twice a day Follow up with your PCP Prescriptions: No Action losartan 25 mg tablet 25 mg PO DAILY 90 Days Qty: 90 0RF prednisone 10 mg tablet See Taper PO DIRECTED Qty: 50 0RF Taper: Prednisone 40 mg daily for 7 Days and 0 Hour 30 mg daily for 7 Days and 0 Hour Rx Instructions: see taper instructions (DME) Oxygen Home Use Kit See Rx Instructions .Route Rx Instructions: As directed prednisone 10 mg tablet 10 mg PO DAILY 30 Days Qty: 30 11RF prednisone 2.5 mg tablet 5 mg PO DAILY 30 Days Qty: 60 5RF cefpodoxime 200 mg tablet 200 mg PO BID Qty: 20 0RF Rx Instructions: must administer with a meal/food Interventions: ED Discharge Assessment Last Done: 07/30/24 22:23 Discharge Date/Time: 07/30/24 22:25 Print Language: Tristanian
[2024-07-30 18:51] VITALS: BP 195/100; PULSE 70; RESP 20; TEMP 36.4; O2SAT 97; BMI 26.6
--- NOTE | 2024-07-30 18:54 | ECG_ITS ---
Test Reason : cp Blood Pressure : / mmHG Vent. Rate : 060 BPM Atrial Rate : 060 BPM P-R Int : 168 ms QRS Dur : 086 ms QT Int : 398 ms P-R-T Axes : 041 008 058 degrees QTc Int : 398 ms Normal sinus rhythm Minimal voltage criteria for LVH, may be normal variant ( R in aVL ) Borderline ECG When compared with ECG of 19-MAY-2024 15:58, Premature atrial complexes are no longer Present Referred By: Alanna Sands Electronically Signed By:YAIR WELDON
[2024-07-30 19:25] LABS: MANUAL DIFF FLAG NO
[2024-07-30 19:27] LABS: Basophils Percent Auto 0.6 % (0-2); Eosinophils Absolute Auto 0.1 X10*3/uL (0.0-0.4); Eosinophils Percent Auto 1.5 % (0-4); Hematocrit 41.1 % (42.0-52.0); Hemoglobin 14.3 g/dl (14.0-18.0); Imm Gran Abs Auto 0.03 X10*3/uL (0.00-0.03); Imm Gran Pct Auto 0.4 % (0.0-0.4); Lymphocytes Absolute Auto 0.6 X10*3/uL (1.2-4.9); Lymphocytes Percent Auto 8.9 % (20-40); Mean Corpuscular HGB Conc 34.8 g/dl (31.0-36.0); Mean Corpuscular Hemoglobin 30.3 pg (27.0-33.0); Mean Corpuscular Volume 87.1 fL (80.0-98.0); Mean Platelet Volume 10.2 fL (9.4-12.4); Monocytes Absolute Auto 0.8 X10*3/uL (0.1-1.2); Monocytes Percent Auto 11.1 % (2-11); Neutrophils Absolute Auto 5.6 x10*3/uL (2.0-8.3); Neutrophils Percent Auto 77.5 % (45-73); Platelet Count 176 X10*3/uL (160-400); Red Blood Count 4.72 X10*6/uL (4.60-5.80); Red Cell Distribution Width 14.1 % (11.0-16.0); White Blood Count 7.2 X10*3/uL (4.8-10.8)
[2024-07-30 19:46] LABS: Alanine Aminotransferase 53 U/L (0-40); Albumin Level 4.1 g/dL (3.5-5.0); Alkaline Phosphatase 42 U/L (39-117); Anion Gap 14 (12-20); Bilirubin Total 0.3 mg/dL (0.0-1.0); Blood Urea Nitrogen 25 mg/dL (9-16); Calcium 9.1 mg/dL (8.4-10.2); Carbon Dioxide 20 mmol/L (22-29); Chloride 110 mmol/L (96-108); Creatinine Clr Calc Pharmacy 61.5; Estimated Glomerular Filt Rate > 60; Glucose Random 103 mg/dL (60-115); Potassium 3.7 mmol/L (3.3-5.1); Sodium 140 mmol/L (135-145); Total Protein 6.7 g/dL (6.5-8.0)
[2024-07-30 19:52] LABS: Troponin-I High Sensitivity 6.6 ng/L (<3.5-35.0)
[2024-07-30 19:57] LABS: Aspartate Amino Transferase 40 U/L (5-37)
[2024-07-30 22:17] VITALS: BP 167/88; PULSE 62; RESP 16; TEMP 36.5; O2SAT 94
[2024-07-30 22:23] VITALS: BP 167/88; PULSE 62; RESP 16; TEMP 36.5; O2SAT 94
== END 2024-07-30 22:25 | disposition home or self-care (01) ==
PROVIDERS: Registered Nurse Emergency; Emergency Provider Internal Medicine; PCP Nurse Practitioner Family
DX: I10 Essential (primary) hypertension (principal); R03.0 Elevated blood-pressure reading, without diagnosis of hypertension; M06.9 Rheumatoid arthritis, unspecified; Z99.81 Dependence on supplemental oxygen; Z79.899 Other long term (current) drug therapy
CPT/HCPCS: 36415; 80053; 84484; 85025; 93005; 99283; 99284

== ENCOUNTER → 2024-07-30 18:54 | Outpatient (BNV) | payer MEDICARE, SELFPAY | PROVIDERS: Emergency Provider Internal Medicine; PCP Nurse Practitioner Family; Visit Provider Internal Medicine | DX: R07.9 Chest pain, unspecified (principal) | CPT/HCPCS: 93010 ==

== ENCOUNTER 2024-08-09 08:54 | Outpatient (REF) | payer MEDICARE, SELFPAY ==
--- NOTE | ~2024-08-09 | XR_ITS ---
EXAMINATION: XR CHEST CLINICAL INFORMATION: J84.9 - Interstitial pulmonary disease, unspecified COMPARISON: Chest at 07/05/2024 TECHNIQUE: 2 views of the chest were obtained. FINDINGS: The lungs are expanded with prominent diffuse interstitial markings throughout both lungs similar previous study. No consolidation pleural effusion seen. The heart size and pulmonary vascularity is normal. There is mild spondylosis dorsal spine. XR/XR chest 2V IMPRESSION: Diffuse bilateral interstitial opacities unchanged to previous exam. No consolidation, mass or pleural effusion. Electronically signed by: Steve Gonzales MD 08/09/2024 10:44 AM [facility]
--- OUTSIDE RECORDS SUMMARY | 2024-08-09 08:57 | XMS_ITS ---
Author Organization [facility] Address [address] [place] [address] Care Team Providers Care Human Resources Admin Name Role Phone SHANITA RODRIGUEZ Primary Care Provider Joshua Downey [phone] REASON FOR VISIT Patient presents today for gastric ulcer Encounters Encounter Location Date Provider Diagnosis [facility] [address] [place] [address] 06/03/2024 Joshua Yuen PLAN OF TREATMENT Next Appt Details Provider Name:Joshua Yuen , 10/05/2024 10:50:00 AM, [address], [address], [place], [address],
--- OUTSIDE RECORDS SUMMARY | 2024-08-09 08:58 | XMS_ITS ---
Author Organization [facility] Address [address] [place] [address] Care Team Providers Care Nephrologist Name Role Phone SHANITA RODRIGUEZ Primary Care Provider Joshua Downey [phone] ALLERGIES Allergen (clinical drug ingredient) Drug/Non Drug [...] Hiatal hernia (K44.9) Active confirmed Hiatal hernia (84611088) VITAL SIGNS BMI 26.58 kg/m2 06/03/2023 Blood pressure systolic 000 mm Hg 06/03/20 23 Blood pressure diastolic 00 mm Hg 023 Height 69 in 06/03/2023 Temperature 98.7 degrees Fahrenheit 06/03/20 23 Weight 180 lbs 06/03/2023 Encounters Encounter Location Date Provider Diagnosis 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
--- OUTSIDE RECORDS SUMMARY | 2024-08-09 08:58 | XMS_ITS | Patient Health Record ---
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 848199629 Problem Gastroesophageal reflux disease, esophagitis presence not specified (K21.9) Active confirmed 662048293 Problem Hiatal hernia (K44.9) Active confirmed Hiatal hernia (77406619) 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 Gastric lymphom a (428890073) Problem Gastritis (K29.70) Active confirmed Gas tritis (1526025) Problem History of gastric cancer (Z85.028) Active confirmed History of malignant neoplasm of stomach (035254670) Problem Dysphagia, unspecified type (R13.10) Active confirmed 11438956 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 [address] [place] [address] 06/03/[address] [facility] [address] [place] [address] 06/02/2024 Joshua Yuen PLAN OF TREATMENT Pending Test Test Name Order Date LIVER PROFILE 11/29/2021 ALPHA-FETOPROTEIN,TUMOR MARKER 6 US ABDOMEN COMP WITH ELASTOGRAPHY 2021 Future Test Test Name Order Date UPPER GI ENDOSCOPY BALLOOON DILATION OF ESOPH 01/11/2016 UPPER GI ENDOSCOPY 04/29/2019 UPPER GI ENDOSCOPY 11/29/2021 COLONOSCOPY 11/29/2021 UPPER GI ENDOSCOPY 06/27/2022 Next Appt Details Provider Name:Joshau Richey Alpa , 10/05/2024 10:50:00 AM, [address], [address], [place], [address], Insurance Providers Payer Name Payer Address Payer Phone Subscriber Number Group Number Insured Name Patient Relationship to Insured Coverage Start Date Coverage End Date MEDICARE OF [place] [address] [place] [id number] [phone] [id number] MULUGETA DOVE Self - patient is the insured MED[employer] ATTN CLAIMS [address] [place] [address] [id number] MULUGETA DOVE Self - patient is the [...]
--- OUTSIDE RECORDS SUMMARY | 2024-08-09 08:58 | XMS_ITS ---
Author Organization [facility] Address [address] [place] [address] Care Team Providers Care Rigging Engineer Name Role Phone SHANITA RODRIGUEZ Primary Care Provider Joshua Downey [phone] REASON FOR VISIT r/s appt Encounters Encounter Location Date Provider Diagnosis [facility] [address] [place] [address] 06/02/2024 Joshua Yuen PLAN OF TREATMENT Next Appt Details Provider Name:Joshua Yuen , 10/05/2024 10:50:00 AM, [address], [address], [place], [address],
== END 2024-08-09 08:55 | disposition home or self-care (01) ==
LOC: HO.XRAY 08:54
PROVIDERS: PCP Nurse Practitioner Family; Visit Provider Hospitalist
DX: J84.9 Interstitial pulmonary disease, unspecified (principal)
CPT/HCPCS: 71046

== ENCOUNTER → 2024-08-09 08:58 | Outpatient (BNV) | payer MEDICARE, SELFPAY | PROVIDERS: PCP Nurse Practitioner Family; Visit Provider Radiology Diagnostic Radiology | DX: J84.9 Interstitial pulmonary disease, unspecified (principal) | CPT/HCPCS: 71046 ==

== ENCOUNTER 2024-08-17 09:56 | Outpatient (AMB) | payer MEDICARE, SELFPAY ==
[2024-08-17 09:59] VITALS: BP 120/78; PULSE 73; O2SAT 96; BMI 28.0
--- NOTE | 2024-08-17 09:59 | MHC.OFFVIS ---
Vital Signs 08/17/24 09:59 Height 5 ft 9 in Weight 189 lb 9.561 oz BMI 28.0 BP 120/78 Blood Pressure Location Rt brachial Position Sitting Pulse 73 Pulse Source Pulse Oximeter Pulse Oximetry (%) 96 Oxygen Delivery Method Room Air Intake Visit Reasons: COPD Allergies morphine [MORPHINE] Allergy (Intermediate, Verified 08/17/24 10:02) HR DROPPED amlodipine Adverse Reaction (Intermediate, Verified 08/17/24 10:02) Depression azithromycin Adverse Reaction (Intermediate, Verified 08/17/24 10:02) Joint Pain clarithromycin [Prevpac] Adverse Reaction (Intermediate, Verified 08/17/24 10:02) depression (after taking for a few days) - includes most PPI lansoprazole [Prevpac] Adverse Reaction (Intermediate, Verified 08/17/24 10:02) depression (after taking for a few days) - includes most PPI ranitidine [Zantac] Adverse Reaction (Intermediate, Verified 08/17/24 10:02) depression (after taking for a few months) Prilosec Adverse Reaction (Intermediate, Uncoded 08/17/24 10:02) depression (after taking for a few days) - includes most PPI HPI Comments Details: The patient is a 69-year-old gentleman here for evaluation of an abnormal CT scan of the chest. The patient was in usual state health until in 2021 when he underwent a screening endoscopy for the evaluation reflux disease. 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 The patient did undergo radiation therapy. He was also referred to Oncology. Further workup included a PET scan. This was done in July 2022 and I did review the results. No significant FDG activity in the parenchymal lung tissue and no abnormalities noted. The patient did not have any significant lymphadenopathy either. Subsequently after that in September he had a CT scan of the abdomen and pelvis that demonstrated some lung cuts with bilateral areas of airspace disease and consolidations. Patient was asymptomatic. He was placed on antibiotics at that time and he started expectorating some. He was not having any respiratory issues at that time. Subsequently the patient developed the flu she started developing significant myalgia and fatigue arthralgias and was not feeling well. After that he started having worsening cough and shortness of breath and was not feeling well. He started developing pleuritic discomfort. He had a repeat CT scan at that time in October 2022 which was personally by me now demonstrating bilateral peripheral patchy consolidations with some cavitations which appears to me more likely a component of post viral Staph aureus infection. That or some degree of bacteremia. The patient was having significant symptoms and he was seen by urgent care with placement 7 days of Bactrim and also prednisone and he is significantly better at this time. Therefore likely that by treating the likely staph infection is feeling better. That being said he was having some findings on the CT scan of the abdomen prior to being sick. The question still stands is could he have some underlying bronch is associated lymphoma in addition to the gastric lymphoma of the very unlikely. Based on the fact the patient is feeling better on the Bactrim will going to extend the course the Bactrim to treating for total 21 days. Then we will repeat the imaging studies as long as he is doing well. If the patient is not doing well then we will consider bronchoscopy earlier on. Otherwise will repeat the CT scan in around 6 weeks to see if she still has any residual findings and if he does will go ahead and intervene with a diagnostic bronchoscopy. 08/27/2023 the patient is here for pulmonary follow-up visit. The patient overall has been doing fairly well. Recently he started noticing increasing chest congestion. But minimal. The patient continues to be on 10 mg of prednisone. He is status post the Rituxan injection about 6-8 weeks ago. He does have blood work and a follow-up with his catalyst unit operator soon. In the meantime we did have him go for a chest x-ray appears that he has had a slight increase in the airspace disease primarily on the right lower lobe and also right mid area. This is only minimal degree. Still, will continue to monitor his symptoms and will have a repeat chest x-ray in 3-4 weeks. He is going to see his catalyst unit operator as well. In case his symptoms are worsening further adjustments of his medications may be warranted. But I am hopeful that he can continue on the lower dose prednisone specially with significant cushingoid appearance and high risk for adverse effects from the chronic prednisone use. Denies any fevers or chills low threshold to start antibiotics if his symptoms worsen. 10/29/2023 the patient is here for a pulmonary follow-up visit. Overall he is doing well. He continues on 10 mg of prednisone. He did follow-up with Rheumatology. Pretty happy with his results with rituximab. He did have a recent chest x-ray. We did personally reviewed. Those changes that he had as far as the opacity in the right hemithorax have improved. Overall his x-ray looks a lot better. Still getting some left-sided pleuritic chest discomfort. He did see Oncology and he was ordered to have a CT scan of chest sometime in November. In the meantime will start decreasing the prednisone some very slowly. Will try by 1 mg every 2 weeks to try to decrease at least to 7 mg. Will try to find the lowest most effective dose. If the patient has any trouble doing this he will call. Otherwise the patient does have some snoring. Denies any significant daytime drowsiness. Ridgeland score is only 5/24. Therefore hold off on a sleep study. He has had some weight gain likely from the steroids. Therefore if he does have an increased cardiovascular risk factors home sleep study will be helpful. 03/02/2024 the patient is here for a pulmonary follow-up visit. He continues to do well. He is on 5 mg of prednisone. We have been slowly decreasing it to avoid any rebound effect. Still reassuring. He had a repeat CT scan of the chest which is extremely better. A lot of the nodular densities have resolved. Therefore, going to continues work down to decrease the prednisone slowly. If the patient develops any symptoms in the process he can always call. As he decrease the prednisone he will monitor for any symptoms of adrenal insufficiency. If he has any issues or symptoms of any concerns she will call the office. 05/26/2024 the patient is here for hospital follow-up visit. He has severe COVID with significant ARDS. Has been on prednisone taper. He has been on the oxygen supplementation. We did taken for 6 minute walk test today. The patient did not qualify for a portable oxygen concentrator but we are able to decrease his oxygen to 4 L continuous with activity. He can be on room air at rest. This is good seems to be getting better. In addition to that he can use the oxygen to sleep with. He is currently on prednisone 15 mg. He can get his flu shot now. In addition to that the patient will taper down by 2.5 once a week until he is down to 10 mg and then stay on 10 mg. Patient will follow-up with me in a couple weeks. At that point will reassess for his next Rituxan dose. I am hoping that he can get vaccinated before his next dose. As far as the COVID will go ahead and check his COVID antibodies if his COVID antibodies are negative he will need to get another vaccine. Otherwise if his positive then have to wait at least 90 days from his last infection to be able to take the vaccine. We did look at his x-ray. Does have significant interstitial disease from his recent COVID on top of the interstitial lung disease at baseline. I did reassure him that he will continue to get better although is going to be a slow recovery. Based on his significant COVID he needs to start pulmonary rehabilitation. He is agreeable to this and will try to move him along to start rehab as soon as possible. 07/20/2024 the patient is here for pulmonary follow-up visit. He is finally feeling a little better. He has some difficult few months and weeks because of worsening chest congestion shortness of breath. Multiple courses of antibiotics without any significant improvement. Now after going up on the prednisone to 20 mg he starting to feel little better. He also been feeling depressed lately. He is not sure if his medication reaction to the amlodipine that. Therefore he stopped the blood pressure medication at this time. He states he is already feeling better. He does have shortness breath with activity [id number] severity. He does have a hard time carrying the oxygen tanks. Therefore we did a titration study with a conserving device and he actually did good on 2 L pulse maintaining a pulse ox of 91% with activity. Therefore will request a POC for better portability outside of the home from his [employer] company, [employer]. He also continues use the oxygen at nighttime with good effect. Soon he will be starting on a new medication for his going to give tissue disease as he has been taken off the Rituxan because of the immunosuppressive complication that he has had throughout the few months. In addition to that he was scheduled for bronchoscopy because his ongoing symptoms for deep cultures. However, will go ahead and hold off on the bronchoscopy at this point since he is doing a little better. Patient will come back in 4 weeks and will have him get an x-ray prior to that. 08/17/2024 the patient is here for a pulmonary follow-up visit. Overall he is doing better. He is exercising regularly. He is using the oxygen with good effect. He is looking to getting another concentrator to have in his gym in order for him to continue to exercise more. He is going to look for 1 and then I can give him a prescription for 1. In the meantime he also has a portable oxygen concentrator that has been affecting beneficial. Right now with the cold weather does not work as well though. He did start the aisle 6 inhibitor. This was to take the place of the Rituxan. Rituxan did work very well for his underlying connective tissue disease. However, he then developed COVID and had severe COVID. Therefore he was switched over to the IL 6 inhibitor. Unfortunately resulted high blood pressure to the point that developed hypertensive urgency with a systolic blood pressure of 220. He went to the emergency department. His blood pressure medications were adjusted. He became very concerned he does not want to take the IL 6 inhibitor any longer. He is wondering if he should go back on rituximab. He may have other options. His catalyst unit operator will be retiring from [employer] and he is going to be seeing a new catalyst unit operator and a month. Therefore this time he will continue with the 15 mg of prednisone will stay there until he follows up with rheumatology. From a pulmonary standpoint he is doing better. He has had multiple x-rays from April to now in appears that he has significantly improved. He does have baseline interstitial lung disease. 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 Pneumonia Pleural effusion ILD (interstitial lung disease) Right knee meniscal tear Abnormal biliary HIDA scan Kidney stones [place] of foot Bradycardia Left shoulder pain Normal colonoscopy (~08/2011) Lumbar spondylosis Impaired fasting glucose Dyslipidemia Benign essential hypertension History of gastric ulcer Gastritis Internal hemorrhoids Diverticulosis Benign prostatic hyperplasia Alopecia (capitis) totalis History of Lyme disease (~2009) History of hepatitis C Surgical History History of liver biopsy History of prostate surgery Status post left rotator cuff repair (~11/2020) History of esophagogastroduodenoscopy (EGD) (~06/2019) History of medial meniscus repair of left knee (~12/2016) Hx laparoscopic cholecystectomy (~10/2012) History of right inguinal hernia repair (~2011) History of surgery on right wrist Family History Father Gastric cancer Prostate cancer Family/Other Pancreas cancer Brother Skin cancer Social History Household Members: Other Household Members Other:: mother Housing: House Are you a primary director day care center to a significant other at home: No Do you presently have visiting nurse or other home services: No Alcohol intake: never Patient Tobacco Use Status: Never used Tobacco e-Cigarette/Vaping Use: Never Used Second Hand Smoke Exposure: No Advance Directives Date on File: 05/03/24 service: Yes Current occupational status: retired Cognitive needs: No Hearing needs: No Vision needs: Yes Review of Systems Const Denies excessive sweating, Denies fever(s), Denies headache(s) and Denies night sweats Eyes Denies itchy eyes ENT Reports Normal hearing present, Denies headache(s), Denies nasal discharge, Denies post nasal drip and Denies sore throat Card Denies chest pain, Denies chest pain at rest, Denies chest pain with activity, Denies claudication, Denies leg edema, Reports dyspnea on exertion, Denies orthopnea and Denies paroxysmal nocturnal dyspnea Resp Reports chest congestion, Reports cough, Denies excessive phlegm production, Denies pain on inspiration, Denies pain with cough, Reports dyspnea on exertion and Denies stridor Neuro Reports Normal hearing present and Denies headache(s) Endo Denies excessive sweating Edwin/Lymph Denies lymphadenopathy Aller/Immun Denies itchy eyes and Denies seasonal rhinorrhea Physical Exam Vital Signs: Last Vital Signs Pulse 73 08/17/24 09:59 BP 120/78 08/17/24 09:59 Pulse Ox 96 08/17/24 09:59 Oxygen Delivery Method Room Air 08/17/24 09:59 BMI result Body Mass Index 28.0 Last Vital Signs Temp 97.4 F 04/29/24 08:00 Pulse 53 04/29/24 08:00 Resp 20 04/29/24 08:00 BP 139/79 04/29/24 08:00 Pulse Ox 87 L 04/29/24 08:00 O2 Del Method Oxymask 04/29/24 08:00 O2 Flow Rate 7 04/29/24 08:00 BMI result Body Mass Index 27.1 Const Other: Awake alert; able to speak short sentences General: cooperative and healthy appearing Nutritional Appearance: well nourished Orientation/consciousness: patient oriented x3 Limitations: no limitations HEENT Head: Yes normal to inspection Eyes General: appearance normal, both eyes and all related structures Neck Neck: Yes normal visual inspection Chest Chest palpation & inspection: normal inspection of the chest Resp Other: Diminished at bases with diffuse end inspiratory crackles and no expiratory wheezes Effort & Inspection: normal respiratory effort and able to speak in complete sentences Auscultation: diminished lung sounds Cardio Other: No S4; positive S1-S2; no S3 murmurs rubs or gallops Rhythm: regular rhythm Heart sounds: S1 normal heart sound present and S2 normal heart sound present GI Other: Soft nontender nondistended normoactive bowel sounds Palpation (GI): Soft to palpation Skin General skin exam: no rashes or lesions noted Neuro General: patient oriented x3 Cranial nerves: Yes Normal hearing present Extrem Other: No edema bilaterally General: Yes no clubbing, cyanosis or edema Results Reviewed Results Reviewed: Assessment & Plan Assessment & Plan (1) ILD (interstitial lung disease): Code(s): J84.9 - Interstitial pulmonary disease, unspecified Category: Medical (2) History of acute respiratory distress syndrome (ARDS): Code(s): Z87.09 - Personal history of other diseases of the respiratory system Category: Medical (3) Rheumatoid arthritis: Code(s): M06.9 - Rheumatoid arthritis, unspecified Category: Medical Qualifiers: Rheumatoid arthritis location: unspecified site Rheumatoid factor presence: unspecified presence Qualified Code(s): M06.9 - Rheumatoid arthritis, unspecified Plan Prednisone 15 mg daily until he follow up rheumatology ? revisiting Rituxan again versus alternative agent. Pt does not want to take IL6 inhibitor due to Hypertensive urgency episode Oxygen revision: RA at rest, 2L/pulse with activity, 3 liters with sleep Looking to buy a second concentrator rehab online CXR stable F/U 3-4 months Coding Level of Care Code Est Pt Level 4 (94256) Complex EM visit Add On G2211 Diagnoses ILD (interstitial lung disease) J84.9 History of acute respiratory distress syndrome (ARDS) Z87.09 Rheumatoid arthritis, involving unspecified site, unspecified whether rheumatoid factor present M06.9 Rheumatoid arthritis location: unspecified site Rheumatoid factor presence: unspecified presence Time Spent (min) 17
--- OUTSIDE RECORDS SUMMARY | 2024-08-17 10:23 | XMS_ITS | Patient Health Record ---
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) Active confirmed 736882941 Problem Gastroesophageal reflux disease, esophagitis presence not specified (K21.9) Active confirmed 525905509 Problem Hiatal hernia (K44.9) Active confirmed Hiatal hernia (78575799) 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 Gastric lymphom a (999446254) Problem Gastritis (K29.70) Active confirmed Gas tritis (6481158) Problem History of gastric cancer (Z85.028) Active confirmed History of malignant neoplasm of stomach (006778842) Problem Dysphagia, unspecified type (R13.10) Active confirmed 98834582 Problem 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 Cordero esophagus (721470784) Problem History of hepatitis C (Z86.19) Active confirmed History of hepatitis C (98230579659078) Problem Gastric ulcer (K25.9) Active confirmed Gastric ulcer (728297095) Problem Diverticulosis of colon (K57.30) Active confirmed Diverticulosi s of colon (937720493) Encounters Encounter Location Date Provider Diagnosis [facility] [address] [place] [address] 06/03/2024 Joshua Yuen [facility] [address] [place] [address] 06/02/2024 Joshua Yuen PLAN OF TREATMENT Pending [...] Richey Alpa , 10/05/2024 10:50:00 AM, [address], [address], [place], [address], Insurance Providers Payer Name Payer Address Payer Phone Subscriber Number Group Number Insured Name Patient Relationship to Insured Coverage Start Date Coverage End Date MEDICARE OF [place] [address] JACQUELINE GREEN [id number] MULUGETA DOVE Self - patient is the insured MEDEX ATTN CLAIMS [address] [place] [address] [id number] MULUGETA DOVE Self - patient is the [...] illness--lasts for up to 3 days Denies [place],DM,CVA,Lung disease,renal dise ase EGD in 06/2012 with [...]
--- OUTSIDE RECORDS SUMMARY | 2024-08-17 10:23 | XMS_ITS ---
Author Organization [facility] Address [address] [place] [address] Care Team Providers Care Automatic Spinning Lathe Operator Name Role Phone SHANITA RODRIGUEZ Primary Care Provider Joshua Downey [phone] REASON FOR VISIT Patient presents today for gastric ulcer Encounters Encounter Location Date Provider Diagnosis [facility] [address] [place] [address] 06/03/2024 Joshua Yuen PLAN OF TREATMENT Next Appt Details Provider Name:Joshua Yuen , 10/05/2024 10:50:00 AM, [address], [address], [place], [address],
--- OUTSIDE RECORDS SUMMARY | 2024-08-17 10:23 | XMS_ITS ---
Author Organization [facility] Address [address] [place] [address] Care Team Providers Care Naprapath Name Role Phone SHANITA RODRIGUEZ Primary Care Provider Joshua Downey [phone] ALLERGIES Allergen (clinical drug ingredient) Drug/Non Drug [...] Hiatal hernia (K44.9) Active confirmed Hiatal hernia (39602750) VITAL SIGNS BMI 26.58 kg/m2 06/03/2023 Blood pressure systolic 000 mm Hg 06/03/20 23 Blood pressure diastolic 00 mm Hg 023 Height 69 in 06/03/2023 Temperature 98.7 degrees Fahrenheit 06/03/20 23 Weight 180 lbs 06/03/2023 Encounters Encounter Location Date Provider Diagnosis [facility] [address] [place] [address] 06/03/2023 Joshua Yuen 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 ; [...] Name:Joshua Yuen , 10/05/2024 10:50:00 AM, [address], [address], [place], [address], Progress Notes * Examination Category Sub-Category Detail [...]
--- OUTSIDE RECORDS SUMMARY | 2024-08-17 10:23 | XMS_ITS ---
Author Organization [facility] Address [address] [place] [address] Care Team Providers Care Animal Keeper Name Role Phone SHANITA RODRIGUEZ Primary Care Provider Joshua Downey [phone] REASON FOR VISIT r/s appt Encounters Encounter Location Date Provider Diagnosis [facility] [address] [place] [address] 06/02/2024 Joshua Yuen PLAN OF TREATMENT Next Appt Details Provider Name:Joshua Yuen , 10/05/2024 10:50:00 AM, [address], [address], [place], [address],
== END 2024-08-17 10:22 | disposition home or self-care (01) ==
PROVIDERS: PCP Nurse Practitioner Family; Visit Provider Hospitalist
DX: J84.9 Interstitial pulmonary disease, unspecified (principal); Z87.09 Personal history of other diseases of the respiratory system; M06.9 Rheumatoid arthritis, unspecified
CPT/HCPCS: 99214; G2211

== ENCOUNTER → 2024-08-17 09:56 | Outpatient (BNVA) | payer MEDICARE, SELFPAY | PROVIDERS: PCP Nurse Practitioner Family; Visit Provider Hospitalist | DX: J84.9 Interstitial pulmonary disease, unspecified (principal); M06.9 Rheumatoid arthritis, unspecified; Z87.09 Personal history of other diseases of the respiratory system | CPT/HCPCS: 99212 ==

== ENCOUNTER 2024-08-26 06:07 | Outpatient (REF) | payer MEDICARE, SELFPAY ==
[2024-08-26 06:28] LABS: MANUAL DIFF FLAG NO
[2024-08-26 07:05] LABS: Basophils Percent Auto 0.6 % (0-2); Eosinophils Percent Auto 0.6 % (0-4); Hematocrit 47.7 % (42.0-52.0); Hemoglobin 15.8 g/dl (14.0-18.0); Imm Gran Abs Auto 0.04 X10*3/uL (0.00-0.03); Imm Gran Pct Auto 0.6 % (0.0-0.4); Lymphocytes Absolute Auto 0.8 X10*3/uL (1.2-4.9); Lymphocytes Percent Auto 10.6 % (20-40); Mean Corpuscular HGB Conc 33.1 g/dl (31.0-36.0); Mean Corpuscular Hemoglobin 29.6 pg (27.0-33.0); Mean Corpuscular Volume 89.5 fL (80.0-98.0); Mean Platelet Volume 11.1 fL (9.4-12.4); Monocytes Absolute Auto 0.7 X10*3/uL (0.1-1.2); Monocytes Percent Auto 9.4 % (2-11); Neutrophils Absolute Auto 5.7 x10*3/uL (2.0-8.3); Neutrophils Percent Auto 78.2 % (45-73); Platelet Count 153 X10*3/uL (160-400); Red Blood Count 5.33 X10*6/uL (4.60-5.80); Red Cell Distribution Width 13.7 % (11.0-16.0); White Blood Count 7.3 X10*3/uL (4.8-10.8)
[2024-08-26 07:17] LABS: Alanine Aminotransferase 85 U/L (0-40); Albumin Level 4.5 g/dL (3.5-5.0); Alkaline Phosphatase 46 U/L (39-117); Anion Gap 8 (12-20); Aspartate Amino Transferase 43 U/L (5-37); Bilirubin Total 0.3 mg/dL (0.0-1.0); Blood Urea Nitrogen 19 mg/dL (9-16); Calcium 9.4 mg/dL (8.4-10.2); Carbon Dioxide 29 mmol/L (22-29); Chloride 107 mmol/L (96-108); Cholesterol 239 mg/dL (<200); Estimated Glomerular Filt Rate > 60; Glucose Fasting 109 mg/dL (60-99); HDL Cholesterol 57 mg/dL (>40); LDL Cholesterol Calculated 156 mg/dL (<100); Potassium 4.2 mmol/L (3.3-5.1); Sodium 140 mmol/L (135-145); Total Protein 6.8 g/dL (6.5-8.0); Triglycerides 130 mg/dL (<150)
[2024-08-26 07:32] LABS: Prostate Specific Antigen Scr 0.25 ng/mL (<0.05-4.0)
[2024-08-26 07:35] LABS: TSH reflex Free T4 1.52 uIU/mL (0.32-4.0)
[2024-08-26 07:39] LABS: Appearance Urine Clear; Color Urine Yellow; Glucose Urine UA Negative (Negative); Leukocyte Esterase Urine Negative (Negative); Nitrite Urine Negative (Negative); PH 5.5 (5.0-9.0); Urine Blood Negative (Negative); Urine Ketones Negative (Negative); Urine Protein Negative (Neg-Trace)
== END 2024-08-26 06:08 | disposition home or self-care (01) ==
LOC: HO.LAB 06:07
PROVIDERS: PCP Nurse Practitioner Family; Visit Provider Nurse Practitioner Family
DX: I10 Essential (primary) hypertension (principal); E78.5 Hyperlipidemia, unspecified; Z12.5 Encounter for screening for malignant neoplasm of prostate
CPT/HCPCS: 36415; 80053; 80061; 81003; 84153; 84443; 85025

== ENCOUNTER 2024-09-06 06:02 | Outpatient (REF) | payer MEDICARE, SELFPAY ==
--- OUTSIDE RECORDS SUMMARY | 2024-09-06 06:06 | XMS_ITS | Patient Health Record ---
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) Active confirmed 704928841 Problem Gastroesophageal reflux disease, esophagitis presence not specified (K21.9) Active confirmed 930025422 Problem Hiatal hernia (K44.9) Active confirmed Hiatal hernia (08799970) 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 Gastric lymphom a (099654401) Problem Gastritis (K29.70) Active confirmed Gas tritis (2883003) Problem History of gastric cancer (Z85.028) Active confirmed History of malignant neoplasm of stomach (343412753) Problem Dysphagia, unspecified type (R13.10) Active confirmed 40144223 Problem 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 Cordero esophagus (821699692) Problem History of hepatitis C (Z86.19) Active confirmed History of hepatitis C (80653115009378) Problem Gastric ulcer (K25.9) Active confirmed Gastric ulcer (106249580) Problem Diverticulosis of colon (K57.30) Active confirmed Diverticulosi s of colon (039574127) Encounters Encounter Location Date Provider Diagnosis [facility] [address] [place] [address] 06/03/2024 Joshua Yune [facility] [address] [place] [address] 06/02/2024 Joshua Yuen PLAN OF TREATMENT Pending Test Test Name Order Date LIVER PROFILE 11/29/2021 ALPHA-FETOPROTEIN,TUMOR MARKER 6 US ABDOMEN COMP WITH ELASTOGRAPHY 2021 Future Test Test Name Order Date UPPER GI ENDOSCOPY BALLOOON DILATION OF ESOPH 01/11/2016 UPPER GI ENDOSCOPY 04/29/2019 UPPER GI ENDOSCOPY 11/29/2021 COLONOSCOPY 11/29/2021 UPPER GI ENDOSCOPY 06/27/2022 Next Appt Details Provider Name:Josuha Richey Alpa , 10/05/2024 10:50:00 AM, [address], [address], [place], [address], Insurance Providers Payer Name Payer Address Payer Phone Subscriber Number Group Number Insured Name Patient Relationship to Insured Coverage Start Date Coverage End Date MEDICARE OF [place] [address] [place] GRE[place] [address] [id number] MULUGETA DOVE Self - patient is the insured MEDEX ATTN CLAIMS [address] [place] [address] [id number] MULUGETA DOVE Self - patient is the [...] illness--lasts for up to 3 days Denies [place],DM,CVA,Lung disease,renal dise ase EGD in 06/2012 with [...]
--- OUTSIDE RECORDS SUMMARY | 2024-09-06 06:06 | XMS_ITS ---
Author Organization [facility] Address [address] [place] [address] Care Team Providers Care Delivery Analyst Name Role Phone SHANITA RODRIGUEZ Primary Care Provider Joshua Downey [phone] REASON FOR VISIT Patient presents today for gastric ulcer Encounters Encounter Location Date Provider Diagnosis [facility] [address] [place] [address] 06/03/2024 Joshua Yuen PLAN OF TREATMENT Next Appt Details Provider Name:Joshua Yuen , 10/05/2024 10:50:00 AM, [address], [address], [place], [address],
--- OUTSIDE RECORDS SUMMARY | 2024-09-06 06:06 | XMS_ITS ---
Author Organization [facility] Address [address] [place] [address] Care Team Providers Care Condenser Winder Name Role Phone SHANITA RODRIGUEZ Primary Care Provider Joshua Downey [phone] REASON FOR VISIT r/s appt Encounters Encounter Location Date Provider Diagnosis [facility] [address] [place] [address] 06/02/2024 Joshua Yuen PLAN OF TREATMENT Next Appt Details Provider Name:Joshua Yuen , 10/05/2024 10:50:00 AM, [address], [address], [place], [address],
--- OUTSIDE RECORDS SUMMARY | 2024-09-06 06:06 | XMS_ITS | Encounter Summary ---
Author Organization [facility] Address [address] [place] [address] Care Team Providers Care Head Banquet Waitress Name Role Phone Unavailable Primary Care Provider Unavailabl e Encounter Details Date Type Department Care Team (Late st Contact Info) Description 06/23/2024 Lab Requisition [facility] [address] [facility] [place] [address] Jose Boyd MD [address] [facility] [address] [place] [address] Benign essential microscopic hematuria Social History Tobacco Use Types Packs/Day Years Used Date Smoking Tobacco: Never Assessed Sex and Gender Information Value Date Recorded Sex Assigned at Not on file Gender Identity Not on file Sexual Orientation Not on file documented as of this encounter Plan of Treatment Not on file documented as of this encounter Procedures Procedure Name Priority Date/Time Associated Diagnosis Comments AP OUTSIDE CONSULT Routine 06/17/2024 12 :00 AM EST Benign essential microscopic hematuria documented in this encounter Results * Anatomic pathology outside consult (06/17/2024 12:00 AM EST) Final Diagnosis Urine, Voided: Negative for high grade urothelial carcinoma. 07/09/2024 10:33 AM [facility] Gross Description A. Urine, Voided, : Recd 1 TP cyto. 07/09/2024 10:33 AM [facility] Disclaimer Unless otherwise specified, all tissue is 10% NB formalin fixed and paraffin embedded. 07/09/2024 10:33 AM [facility] Tissue Urine specimen from urethra / Unknown 06/17/2024 06/23/2024 12:00 PM EST Jose Boyd MD LAB PATHOLOGY ORDER [facility] [address] [place] [address], documented in this encounter Visit Diagnoses Diagnosis Benign essential microscopic hematuria documented in this encounter
--- OUTSIDE RECORDS SUMMARY | 2024-09-06 06:06 | XMS_ITS | Clinical Summary ---
Author Organization [address] Address [address] [place] [address] Phone Care Team Providers Care Burnisher And Bumper Name Role Phone Unavailable Primary Care Provider Unavailabl e Encounters Date Type Department Care Team Description 06/23/2024 Lab Requisition [facility] [address] [place] [address] Jose Boyd MD Benign essential microscopic hematuria from Last 3 Months Social History Tobacco Use Types Packs/Day Years Used Date Smoking Tobacco: Never Assessed Sex and Gender Information Value Date Recorded Sex Assigned at Not on file Gender Identity Not on file Sexual Orientation Not on file Plan of Treatment Health Maintenance Due Date Last Done Comments DTaP,Tdap,and Td Vaccines (1 - Tdap) 1972 Zoster Vaccines (1 of 2) 2003 Pneumococcal Vaccine: 65+ Ye ars (1 of 1 - PCV) 2018 COVID-19 Vaccine ( - 2023-2 5 season) 2024 Influenza Vaccine (#1) 2024 Abdominal Aortic Aneurysm (A AA) Screen 06/23/2024 Cholesterol Screening (Lipid Panel) 06/23/2024 Colorectal Cancer Screening: Colonoscopy 06/23/2024 Depression Screening 06/23/2024 Falls Risk Assessment 06/23/2024 Hepatitis C Screening 06/23/2024 Medicare Annual Wellness Visit 06/23/2024 Social Influencers of Health Screening 06/23/2024 RSV Immunization Patients 60 + Years Old (1 - 1-dose 75+ series) 2028 HIB Vaccines Aged Out No longer eligi ble based on patient's age to complete this topic HPV Vaccines Aged Out No longer eligi ble based on patient's age to complete this topic Hepatitis A Vaccines Aged Out No long er eligible based on patient's age to complete this topic Hepatitis B Vaccines Aged Out No long er eligible based on patient's age to complete this topic IPV Vaccines Aged Out No longer eligi ble based on patient's age to complete this topic MMR Vaccines Aged Out No longer eligi ble based on patient's age to complete this topic Meningococcal ACWY Vaccine Aged Out N o longer eligible based on patient's age to complete this topic RSV Immunization Patients Un raji 20 months Aged Out No longer eligible b ased on patient's age to complete this topic Varicella Vaccines Aged Out No longer eligible based on patient's age to complete this topic Procedures Procedure Name Priority Date/Time Associated Diagnosis Comments AP OUTSIDE CONSULT Routine 06/17/2024 12 :00 AM EST Benign essential microscopic hematuria from Last 3 Months Results * Anatomic pathology outside consult (06/17/2024 12:00 AM EST) Final Diagnosis Urine, Voided: Negative for high grade urothelial carcinoma. 07/09/2024 10:33 AM EST [facility] Gross Description A. Urine, Voided, : Recd 1 TP cyto. 07/09/2024 10:33 AM EST [facility] Disclaimer Unless otherwise specified, all tissue is 10% NB formalin fixed and paraffin embedded. 07/09/2024 10:33 AM EST [facility] Tissue Urine specimen from urethra / Unknown 06/17/2024 06/23/2024 12:00 PM EST Jose Boyd MD LAB PATHOLOGY ORDER [facility] [address] [place] [address], from Last 3 Months
[2024-09-06 08:19] LABS: Prostate Specific Antigen Scr 0.25 ng/mL (<0.05-4.0)
== END 2024-09-06 06:03 | disposition home or self-care (01) ==
LOC: HO.LAB 06:02
PROVIDERS: PCP Student in an Organized Health Care Education/Training Program; Visit Provider Nurse Practitioner Family
DX: I10 Essential (primary) hypertension (principal); M06.9 Rheumatoid arthritis, unspecified; U09.9 Post COVID-19 condition, unspecified; Z79.52 Long term (current) use of systemic steroids; Z79.899 Other long term (current) drug therapy; Z12.5 Encounter for screening for malignant neoplasm of prostate
CPT/HCPCS: 36415; 84153; 96127; 99212

== ENCOUNTER 2024-09-06 08:10 | Outpatient (AMB) | payer MEDICARE, SELFPAY ==
[2024-09-06 08:13] VITALS: BP 136/80; PULSE 74; RESP 16; TEMP 36.6; O2SAT 98; BMI 28.3
--- NOTE | 2024-09-06 08:13 | A.OFFPC_ITS ---
Vital Signs 09/06/24 08:13 Height 5 ft 9 in Weight 191 lb 6 oz BMI 28.3 BP 136/80 Blood Pressure Location Lt brachial Position Sitting Respiration 16 Pulse 74 Pulse Source Pulse Oximeter Temp 97.9 F Temp Source Oral Pulse Oximetry (%) 98 Intake Visit Reasons: 4m follow up Intake Note: pt is here for 4 mon f.up Watch Band Assembler Required: No Accompanied by: Self / Same As Patient Allergies morphine [MORPHINE] Allergy (Intermediate, Verified 09/06/24 08:14) HR DROPPED amlodipine Adverse Reaction (Intermediate, Verified 09/06/24 08:14) Depression azithromycin Adverse Reaction (Intermediate, Verified 09/06/24 08:14) Joint Pain clarithromycin [Prevpac] Adverse Reaction (Intermediate, Verified 09/06/24 08:14) depression (after taking for a few days) - includes most PPI lansoprazole [Prevpac] Adverse Reaction (Intermediate, Verified 09/06/24 08:14) depression (after taking for a few days) - includes most PPI ranitidine [Zantac] Adverse Reaction (Intermediate, Verified 09/06/24 08:14) depression (after taking for a few months) Prilosec Adverse Reaction (Intermediate, Uncoded 08/17/24 10:02) depression (after taking for a few days) - includes most PPI Medication List - Last Reconciled 09/06/24 by ELEANOR Fuentes losartan 25 mg PO BID 30 days Oxygen Home Use As directed prednisone 10 mg PO DAILY 30 days prednisone 5 mg (2 x 2.5 mg) PO DAILY 30 days Tobacco use date assessed: 09/06/24 Fall risk assessment: No Falls in past year Last assessed Fall Risk: 09/06/24 Dental Screening Dental Screen Date: 09/06/24 Did you have a dental visit in the last 12 months?: Yes Did you have a dental problem in the last 6 months where you did not have access to dental care?: No Was dental information given to patient?: Patient has dentist HPI 4m follow up HPI Details Chief Complaint The patient presents with hypertensive spikes and feeling very anxious. History of Present Illness The patient is a 69-year-old male presenting with hypertensive spikes. 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 He also has a connective tissue disorder, was managed with Rituximab (rituxan) therapy. Recently, he contracted a severe COVID-19 infection, which significantly impacted his health and led to fluctuations in blood pressure, characterized by episodes of severe hypertension followed by stabilization. Currently, he is on a regimen of prednisone, 15 mg daily, which he is to continue until his follow-up with rheumatology/pulmonary. At a recent pulmonary consultation, his condition was improving, and no further concerning pulmonary issues were noted. Historically, he has had episodes of bradycardia, complicating the management of his current hypertensive spikes. During this visit, the patient reported experiencing anxiety and diaphoresis associated with episodes of elevated blood pressure spikes while at home. The initial management plan for these hypertensive spikes included increasing the dose of losartan to 25 mg twice daily, although additional agents such as clonidine or beta-blockers were avoided due to the patient's history of bradycardia. Social History Health Maintenance - Follow-up with rheumatology for connec tive tissue disorder management - Recent pulmonary consultation with rep orted improvement in condition Review of Systems - Cardiovascular: Reports episodes of ve ry high blood pressure - General: Reports feeling very anxious and diaphoretic - Respiratory: Denies chest pain, denies shortness of breath - ENT: Reports nasal congestion, kristy to a long-term cold issue Physical Exam General: Cooperative, healthy appearing, comfortable, no acute distress and well developed Orientation: Patient oriented x3 Limitations: No limitations Head: Normal to inspection Ears: Hearing grossly normal bilaterally Nose: Normal external nose present Face and sinus: Normal facial exam Eyes: Appearance normal, both eyes and all related structures Neck: Normal visual inspection and Yes full ROM Respiratory: Normal respiratory effort and able to speak in complete sentences. Clear to auscultation bilaterally Cardiovascular: Regular rate and rhythm. Normal S1 and S2 GI: Normal to inspection. Soft to palpation and nontender Skin: No rashes or lesions noted Neuro: Patient oriented x3 Extremities: Normal to inspection Results Plan - Increase losartan dosage to 25 mg twic e daily to manage hypertensive spikes. - Continue current prednisone dosage 15 mg daily) until rheumatology follow-up. - Monitor blood pressure regularly to pr event further hypertensive episodes. - Avoid beta-blockers or clonidine due t o history of bradycardia. - Follow up with rheumatology for ongoin g management of connective tissue disorder. -pt will contact me via portal next week with how he is doing on the losartan 25mg bid from daily Patient was informed and verbally consented to the use of an ambient scribe for clinic note documentation during this visit. Discussion Notes During this visit, I discussed with the patient the current management for his hypertensive spikes, emphasizing the decision to increase losartan to manage his blood pressure within a more stable range. We discussed avoiding additional blood pressure medications that might exacerbate his bradycardia. I also reinforced the importance of regular blood pressure monitoring to prevent complications associated with hypertension. The patient was advised to continue his prednisone until his rheumatology appointment and maintain follow-up with pulmonary as needed. We reviewed potential symptoms to monitor and emphasized the continuation of current management with appropriate follow-ups. Patient Instructions - Take losartan 25 mg twice daily as pre scribed. - Continue taking prednisone 15 mg daily until further consultation with rheumatology. - Monitor your blood pressure regularly and report significant spikes or concerns. - Be aware of symptoms such as chest jermaine n, severe shortness of breath, or persistent high anxiety, and seek care if they occur. - Keep all scheduled follow-up appointme nts to manage connective tissue disorder and assess ongoing treatment efficacy. 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 Pneumonia Pleural effusion ILD (interstitial lung disease) Right knee meniscal tear Abnormal biliary HIDA scan Kidney stones [place] of foot Bradycardia Left shoulder pain Normal colonoscopy (~08/2011) Lumbar spondylosis Impaired fasting glucose Dyslipidemia Benign essential hypertension History of gastric ulcer Gastritis Internal hemorrhoids Diverticulosis Benign prostatic hyperplasia Alopecia (capitis) totalis History of Lyme disease (~2009) History of hepatitis C Surgical History History of liver biopsy History of prostate surgery Status post left rotator cuff repair (~11/2020) History of esophagogastroduodenoscopy (EGD) (~06/2019) History of medial meniscus repair of left knee (~12/2016) Hx laparoscopic cholecystectomy (~10/2012) History of right inguinal hernia repair (~2011) History of surgery on right wrist Family History Father Gastric cancer Prostate cancer Family/Other Pancreas cancer Brother Skin cancer Social History Household Members: Other Household Members Other:: mother Housing: House Are you a primary career professional to a significant other at home: No Do you presently have visiting nurse or other home services: No Alcohol intake: never Patient Tobacco Use Status: Never used Tobacco e-Cigarette/Vaping Use: Never Used Second Hand Smoke Exposure: No Advance Directives Date on File: 05/03/24 service: Yes Current occupational status: retired Cognitive needs: No Hearing needs: No Vision needs: Yes Questionnaire PHQ-9 Over the last 2 weeks, how often have you been bothered by any of the following problems? 1. Little interest or pleasure in doing things: several days 2. Feeling down, depressed, or hopeless: not at all 3. Trouble falling or staying asleep, or sleeping too much: more than half the days 4. Feeling tired or having little energy: not at all 5. Poor appetite or overeating: not at all 6. Feeling bad about yourself - or that you are a failure or have let yourself or your family down: not at all 7. Trouble concentrating on things, such as reading the newspaper or watching television: not at all 8. Moving or speaking so slowly that other people could have noticed. Or the opposite - being so fidgety or restless that you have been moving around a lot more than usual: not at all 9. Thoughts that you would be better off or of hurting yourself in some way: not at all Total score: 3 Depression Screening Interpretation: Negative Depression Screening Done: Yes 98439 - PHQ-9 Billing: Yes Source: Developed by Drs. Joshua Carreon, Erika Gomez, Filipe Hein and colleagues, with an educational paige from [employer]. Thrive Questionnaire Date Thrive assessed: 09/06/24 I am a: Patient What is your living situation today?: I have a steady place to live Within the past 12 months, did the food you bought not last and you didn't have the money to get more?: I choose not to answer this question Within the past 12 months, did you worry whether your food would run out before you got money to buy more?: I choose not to answer this question Do you have trouble paying for medicines?: I choose not to answer this question Do you have trouble getting transportation to medical appointments?: I choose not to answer this question Do you have trouble paying your heating and electricity bill?: I choose not to answer this question Do you have trouble taking care of your child, family member or friend?: I choose not to answer this question Do you have trouble with day-to-day activities such as bathing, preparing meals, shopping, managing finances, etc.?: I choose not to answer this question Are you currently unemployed and looking for a job?: I choose not to answer this question Are you interested in more education?: I choose not to answer this question Please select the resources that you would like help with: None Currently or been in a relationship where the following occur: I choose not to answer THRIVE Score: 0 AUDIT C Alcohol Use Questionnaire (AUDIT-C) 1. How often do you have a drink containing alcohol?: Never 3. How often do you have six or more drinks on one occasion?: Never Total Score: 0 Score Reviewed/Action Taken: Yes BLAIR-7 AMB Questionnaire BLAIR-7 Date BLAIR - 7 assessed: 09/06/24 Feeling nervous, anxious, or on edge: 0 = Not at all Not being able to stop or control worryin = Not at all Worrying too much about different things: 0 = Not at all Trouble relaxin = Several days Being so restless that it is hard to sit still: 0 = Not at all Becoming easily annoyed or irritable: 0 = Not at all Feeling afraid as if something awful might happen: 0 = Not at all Total BLAIR-7 score (0-4 normal; 5-9 mild; 10-14 moderate; 15-21 severe): 1 Source: Developed by Drs. Joshua Carreon, Erika Gomez, Filipe Hein and colleagues, with an educational paige from [employer]. BLAIR-7 Assessment Billing BLAIR-7 Assessment Tool: BLAIR-7 Assessment 28035 Physical exam (Primary Care) Vital Signs: Last Vital Signs Temp 97.9 F 09/06/24 08:13 Pulse 74 09/06/24 08:13 Resp 16 09/06/24 08:13 BP 136/80 09/06/24 08:13 Pulse Ox 98 09/06/24 08:13 BMI result Body Mass Index 28.3 Tobacco/Smoking Status: Tobacco use Status Tobacco use date assessed 09/06/24 09/06/24 08:15 Patient Tobacco Use Status Never used Tobacco 09/06/24 08:15 e-Cigarette/Vaping Use Never Used 09/06/24 08:15 PHQ-9: PHQ-9 Score PHQ-9: Total score 2 09/06/24 08:15 Depression Screening Interpretation: Negative Thrive Assessment: Date of Thrive Assessment Date Thrive assessed 09/06/24 09/06/24 08:15 Currently or been in a relationship where the following occur: I choose not to answer Coding Level of Care Code Est Pt Level 3 (08449) Diagnoses Rheumatoid arthritis, involving unspecified site, unspecified whether rheumatoid factor present M06.9 Rheumatoid arthritis location: unspecified site Rheumatoid factor presence: unspecified presence 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 U09.9 HTN (hypertension) I10 Additional Codes BLAIR-7 Assessment Billing - BLAIR-7 Assessment Tool: BLAIR-7 Assessment 32475 ([id number]) PHQ-9 - 26837 - PHQ-9 Billing: Yes ([id number]) Assessment & Plan Assessment & Plan (1) Rheumatoid arthritis: Code(s): M06.9 - Rheumatoid arthritis, unspecified Category: Medical Qualifiers: Rheumatoid arthritis location: unspecified site Rheumatoid factor presence: unspecified presence Qualified Code(s): M06.9 - Rheumatoid arthritis, unspecified (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 Medications: Changed From losartan 25 mg PO DAILY 90 days 90 tabs 0RF To losartan 25 mg PO BID 60 tabs 2RF 30 days
--- OUTSIDE RECORDS SUMMARY | 2024-09-06 12:35 | XMS_ITS | Encounter Summary ---
Author Organization [facility] Address [address] [place] [address] Care Team Providers Care Receiving Coordinator Name Role Phone Unavailable Primary Care Provider Unavailabl e Encounter Details Date Type Department Care Team (Late st Contact Info) Description 06/23/2024 Lab Requisition [facility] [address] [facility] [place] [address] Jose Boyd MD [address] [facility] [address] [place] [address] Benign essential microscopic hematuria Social History Tobacco [...] high grade urothelial carcinoma. 07/09/2024 10:33 AM [facility] Gross Description A. Urine, Voided, : Recd 1 TP cyto. 07/09/2024 10:33 AM [facility] Disclaimer Unless otherwise specified, all tissue is 10% NB formalin fixed and paraffin embedded. 07/09/2024 10:33 AM [facility] Tissue Urine specimen from urethra / Unknown 06/17/2024 06/23/2024 12:00 PM EST Jose Boyd MD LAB PATHOLOGY ORDER [facility] [address] [place] [address], documented in this encounter Visit Diagnoses Diagnosis Benign essential microscopic hematuria documented in this encounter
--- OUTSIDE RECORDS SUMMARY | 2024-09-06 12:35 | XMS_ITS ---
Author Organization [facility] Address [address] [place] [address] Care Team Providers Care Ice Cream Dipper Name Role Phone SHANITA RODRIGUEZ Primary Care Provider Joshua Downey [phone] ALLERGIES Allergen (clinical drug ingredient) Drug/Non Drug [...] Hiatal hernia (K44.9) Active confirmed Hiatal hernia (63439270) VITAL SIGNS BMI 26.58 kg/m2 06/03/2023 Blood pressure systolic 000 mm Hg 06/03/20 23 Blood pressure diastolic 00 mm Hg 023 Height 69 in 06/03/2023 Temperature 98.7 degrees Fahrenheit 06/03/20 23 Weight 180 lbs 06/03/2023 Encounters Encounter Location Date Provider Diagnosis [facility] [address] [place] [address] 06/03/2023 Joshua Yuen 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
--- OUTSIDE RECORDS SUMMARY | 2024-09-06 12:35 | XMS_ITS | Clinical Summary ---
Author Organization [address] Address [address] [place] [address] Phone Care Team Providers Care Bi Manager Name Role Phone Unavailable Primary Care Provider Unavailabl e Encounters Date Type Department Care Team Description 06/23/2024 Lab Requisition [facility] Lab [address] [place] [address] Jose Boyd MD Benign essential [...] grade urothelial carcinoma. 07/09/2024 10:33 AM EST [facility] Gross Description A. Urine, Voided, : Recd 1 TP cyto. 07/09/2024 10:33 AM EST [facility] Disclaimer Unless otherwise specified, all tissue is 10% NB formalin fixed and paraffin embedded. 07/09/2024 10:33 AM EST [facility] Tissue Urine specimen from urethra / Unknown 06/17/2024 06/23/2024 12:00 PM EST Jose Boyd MD LAB PATHOLOGY ORDER [facility] [address] [place] [address], from Last 3 Months
== END 2024-09-06 09:17 | disposition home or self-care (01) ==
PROVIDERS: PCP Nurse Practitioner Family; Visit Provider Nurse Practitioner Family
DX: M06.9 Rheumatoid arthritis, unspecified (principal); U09.9 Post COVID-19 condition, unspecified; I10 Essential (primary) hypertension

== ENCOUNTER 2024-09-08 08:07 | Outpatient (REF) | payer MEDICARE, SELFPAY ==
--- OUTSIDE RECORDS SUMMARY | 2024-09-08 08:18 | XMS_ITS ---
Author Organization [facility] Address [address] [place] [address] Care Team Providers Care Buffing Machine Operator Name Role Phone SHANITA RODRIGUEZ Primary Care Provider Joshua Downey [phone] ALLERGIES Allergen (clinical drug ingredient) Drug/Non Drug [...] Hiatal hernia (K44.9) Active confirmed Hiatal hernia ([id number]) VITAL SIGNS BMI 26.58 kg/m2 06/03/2023 Blood pressure systolic 000 mm Hg 06/03/20 23 Blood pressure diastolic 00 mm Hg 023 Height 69 in 06/03/2023 Temperature 98.7 degrees Fahrenheit 06/03/20 23 Weight 180 lbs 06/03/2023 Encounters Encounter Location Date Provider Diagnosis [facility] [address] [place] [address] 06/03/2023 Joshua Yuen 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
--- OUTSIDE RECORDS SUMMARY | 2024-09-08 08:18 | XMS_ITS | Clinical Summary ---
Author Organization [address] Address [address] [place] [address] Phone Care Team Providers Care Etl Analyst Name Role Phone Unavailable Primary Care Provider Unavailabl e Encounters Date Type Department Care Team Description 06/23/2024 Lab Requisition [facility] - Main Lab [address] [place] [address] Jose Boyd MD Benign essential [...] Jose Boyd MD LAB PATHOLOGY ORDER [facility]) [facility] [address] [place] [address], from Last 3 Months
--- OUTSIDE RECORDS SUMMARY | 2024-09-08 08:19 | XMS_ITS | Encounter Summary ---
Author Organization [facility] Address [address] [place] [address] Care Team Providers Care Fire Services Plumber Name Role Phone Unavailable Primary Care Provider Unavailabl e Encounter Details Date Type Department Care Team (Late st Contact Info) Description 06/23/2024 Lab Requisition [facility] [address] [facility] [place] [address] Jose Boyd MD [address] [facility] [address] [place] [address] Benign essential microscopic hematuria Social History Tobacco [...] Jose Boyd MD LAB PATHOLOGY ORDER [facility] ([facility]) [facility] [address] [place] [address], documented in this encounter Visit Diagnoses Diagnosis Benign essential microscopic hematuria documented in this encounter
--- OUTSIDE RECORDS SUMMARY | 2024-09-08 08:19 | XMS_ITS | Patient Health Record ---
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) Active confirmed 890718720 Problem Gastroesophageal reflux disease, esophagitis presence not specified (K21.9) Active confirmed 370595708 Problem Hiatal hernia (K44.9) Active confirmed Hiatal hernia (14319471) 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 Gastric lymphom a (460142794) Problem Gastritis (K29.70) Active confirmed Gas tritis (6337316) Problem History of gastric cancer (Z85.028) Active confirmed History of malignant neoplasm of stomach (243444734) Problem Dysphagia, unspecified type (R13.10) Active confirmed 24082756 Problem 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 Cordero esophagus (256737497) Problem History of hepatitis C (Z86.19) Active confirmed History of hepatitis C (36994374742036) Problem Gastric ulcer (K25.9) Active confirmed Gastric ulcer (685359665) Problem Diverticulosis of colon (K57.30) Active confirmed Diverticulosi s of colon (743820327) Encounters Encounter Location Date Provider Diagnosis [facility] [address] [place] [address] 06/03/2024 Joshua Yuen [facility] [address] [place] [address] 06/02/2024 Joshua Yuen PLAN OF TREATMENT Pending [...] , 10/05/2024 10:50:00 AM, [address], [address], [place], [address], Insurance Providers Payer Name Payer Address Payer Phone Subscriber Number Group Number Insured Name Patient Relationship to Insured Coverage Start Date Coverage End Date MEDICARE OF [place] [address] JACQUELINE GREEN [id number] MULUGETA DOVE Self - patient is the insured MEDEX ATTN CLAIMS [address] [place] [address] [phone] [id number] MULUGETA DOVE Self - patient is the [...] illness--lasts for up to 3 days Denies [place],DM,CVA,Lung disease,renal dise ase EGD in 06/2012 with [...]
--- OUTSIDE RECORDS SUMMARY | 2024-09-08 08:19 | XMS_ITS ---
Author Organization [facility] Address [address] [place] [address] Care Team Providers Care Tire Fabric Impregnating Range Tender Name Role Phone SHANITA RODRIGUEZ Primary Care Provider Joshua Downey [phone] REASON FOR VISIT r/s appt Encounters Encounter Location Date Provider Diagnosis [facility] [address] [place] [address] 06/02/2024 Joshua Yuen PLAN OF TREATMENT Next Appt Details Provider Name:Joshua Yuen , 10/05/2024 10:50:00 AM, [address], [address], [place], [address],
--- OUTSIDE RECORDS SUMMARY | 2024-09-08 08:19 | XMS_ITS ---
Author Organization [facility] Address [address] [place] [address] Care Team Providers Care Supervisor Customer Records Division Name Role Phone SHANITA RODRIGUEZ Primary Care Provider Joshua Downey [phone] REASON FOR VISIT Patient presents today for gastric ulcer Encounters Encounter Location Date Provider Diagnosis [facility] [address] [facility] [address] [facility] [address] [place] [address] 06/03/2024 Joshua Yuen PLAN OF TREATMENT Next Appt Details Provider Name:Joshua Yuen , 10/05/2024 10:50:00 AM, [address], [address], [place], [address],
[2024-09-08 10:24] LABS: MANUAL DIFF FLAG NO
[2024-09-08 10:48] LABS: Basophils Percent Auto 0.4 % (0-2); Eosinophils Percent Auto 0.3 % (0-4); Hematocrit 46.3 % (42.0-52.0); Hemoglobin 15.6 g/dl (14.0-18.0); Imm Gran Abs Auto 0.06 X10*3/uL (0.00-0.03); Imm Gran Pct Auto 0.5 % (0.0-0.4); Lymphocytes Absolute Auto 0.9 X10*3/uL (1.2-4.9); Lymphocytes Percent Auto 7.8 % (20-40); Mean Corpuscular HGB Conc 33.7 g/dl (31.0-36.0); Mean Corpuscular Hemoglobin 29.9 pg (27.0-33.0); Mean Corpuscular Volume 88.7 fL (80.0-98.0); Mean Platelet Volume 11.6 fL (9.4-12.4); Monocytes Absolute Auto 0.5 X10*3/uL (0.1-1.2); Monocytes Percent Auto 4.5 % (2-11); Neutrophils Absolute Auto 9.7 x10*3/uL (2.0-8.3); Neutrophils Percent Auto 86.5 % (45-73); Platelet Count 155 X10*3/uL (160-400); Red Blood Count 5.22 X10*6/uL (4.60-5.80); White Blood Count 11.3 X10*3/uL (4.8-10.8)
[2024-09-08 11:24] LABS: Erythrocyte Sedimentation Rate 1 MM/HR (0-15)
[2024-09-08 11:25] LABS: Alanine Aminotransferase 75 U/L (0-40); Albumin Level 4.5 g/dL (3.5-5.0); Alkaline Phosphatase 52 U/L (39-117); Anion Gap 13 (12-20); Aspartate Amino Transferase 37 U/L (5-37); Bilirubin Total 0.4 mg/dL (0.0-1.0); Blood Urea Nitrogen 23 mg/dL (9-16); C Reactive Protein < 0.04 mg/dL (< or = 0.50); Calcium 9.7 mg/dL (8.4-10.2); Carbon Dioxide 26 mmol/L (22-29); Chloride 102 mmol/L (96-108); Estimated Glomerular Filt Rate > 60; Glucose Random 104 mg/dL (60-115); Potassium 4.6 mmol/L (3.3-5.1); Sodium 136 mmol/L (135-145); Total Protein 7.1 g/dL (6.5-8.0)
== END 2024-09-08 08:08 | disposition home or self-care (01) ==
LOC: HO.10HDL 08:07
PROVIDERS: Visit Provider Student in an Organized Health Care Education/Training Program
DX: M06.9 Rheumatoid arthritis, unspecified (principal)
CPT/HCPCS: 36415; 80053; 85025; 85652; 86140

== ENCOUNTER 2024-09-23 15:25 | Outpatient (AMB) | payer MEDICARE, SELFPAY ==
--- NOTE | 2024-09-23 15:26 | MHC.OFFVIS ---
Vital Signs 09/23/24 15:30 Height 5 ft 9 in Weight 194 lb 10.691 oz BMI 28.7 BP 140/80 H Blood Pressure Location Rt brachial Position Sitting Respiration 16 Pulse 64 Pulse Source Pulse Oximeter Pulse Oximetry (%) 98 Oxygen Delivery Method Room Air Intake Visit Reasons: RA-ILD Intake Note: Patient presents for RA-ILD. Allergies morphine [MORPHINE] Allergy (Intermediate, Verified 09/23/24 15:29) HR DROPPED amlodipine Adverse Reaction (Intermediate, Verified 09/23/24 15:29) Depression azithromycin Adverse Reaction (Intermediate, Verified 09/23/24 15:29) Joint Pain clarithromycin [Prevpac] Adverse Reaction (Intermediate, Verified 09/23/24 15:29) depression (after taking for a few days) - includes most PPI lansoprazole [Prevpac] Adverse Reaction (Intermediate, Verified 09/23/24 15:29) depression (after taking for a few days) - includes most PPI ranitidine [Zantac] Adverse Reaction (Intermediate, Verified 09/23/24 15:29) depression (after taking for a few months) Prilosec Adverse Reaction (Intermediate, Uncoded 08/17/24 10:02) depression (after taking for a few days) - includes most PPI HPI Comments Details: Patient is a 69-year-old male with alopecia universalis, 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 Goyal. At that time he was on prednisolone 20 mg and denied any joint complaints. The plan at that time was to start Actemra infusions however patient held off on it out of concern of its immunosuppressive effects. Currently patient is on 15 mg of prednisone and his joints are doing good without any issues. No new complaints at this time Rheumatologic History: Initially evaluated 12/13/2022 for polyarthritis. Subsequently found to have recurrent lung infiltrates that was diagnosed as cryptogenic organizing pneumonia. Given the arthritis and lung findings he was evaluated for an underlying autoimmune disease which ultimately revealed +PL-7, +dsDNA, +NT5C1A Ab. RF, CCP and JESSICA negative He was ultimately diagnosed with seronegative rheumatoid arthritis complicated by RA ILD and was started on rituximab infusions Patient received 1 dose of rituximab 03/25. 2 weeks after he was diagnosed with COVID. Few days later his condition worsened and he was admitted to the hospital for a few days, had to have oxygen supplementation (ARDS 2/2 COVID). On discharge patient needed some oxygen. He was also treated with prednisone taper at that time. 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 Pneumonia Pleural effusion ILD (interstitial lung disease) Right knee meniscal tear Abnormal biliary HIDA scan Kidney stones Barnhart of foot Bradycardia Left shoulder pain Normal colonoscopy (~08/2011) Lumbar spondylosis Impaired fasting glucose Dyslipidemia Benign essential hypertension History of gastric ulcer Gastritis Internal hemorrhoids Diverticulosis Benign prostatic hyperplasia Alopecia (capitis) totalis History of Lyme disease (~2009) History of hepatitis C Surgical History History of liver biopsy History of prostate surgery Status post left rotator cuff repair (~11/2020) History of esophagogastroduodenoscopy (EGD) (~06/2019) History of medial meniscus repair of left knee (~12/2016) Hx laparoscopic cholecystectomy (~10/2012) History of right inguinal hernia repair (~2011) History of surgery on right wrist Family History Father Gastric cancer Prostate cancer Family/Other Pancreas cancer Brother Skin cancer Social History Household Members: Other Household Members Other:: mother Housing: House Are you a primary primary care provider to a significant other at home: No Do you presently have visiting nurse or other home services: No Alcohol intake: never Patient Tobacco Use Status: Never used Tobacco e-Cigarette/Vaping Use: Never Used Second Hand Smoke Exposure: No Advance Directives Date on File: 05/03/24 service: Yes Current occupational status: retired Cognitive needs: No Hearing needs: No Vision needs: Yes Review of Systems Const Details: Review of Systems Constitutional: Denies fever, chills, weight loss ENT: Denies vision changes, eye pain or eye redness, dental caries, dry mouth GI: Denies nausea, vomiting, diarrhea, abdominal pain, change in BM Pulm: Denies SOB, TURCIOS, hemoptysis, wheezing Cards: Denies chest pain, palpitations Skin: Denies Raynaud's, rash, nail changes, photosensitivity, REGISTER REPAIRER: Denies headaches, weakness, paresthesias, recurrent falls MSK: as per HPI All other systems reviewed and are unremarkable except noted above Physical Exam Vital Signs: Last Vital Signs Pulse 64 09/23/24 15:30 Resp 16 09/23/24 15:30 BP 140/80 H 09/23/24 15:30 Pulse Ox 98 09/23/24 15:30 Oxygen Delivery Method Room Air 09/23/24 15:30 BMI result Body Mass Index 28.7 Vital signs reviewed Physical Examination CONSTITUITIONAL Patient alert and cooperative. Well appearing and in no apparent painful distress HEENT Conjunctiva and sclera clear. ?Pupils equal round and reactive to light. ?No lymphadenopathy. ? CHEST/RESPIRATORY SYSTEM Normal respiratory effort and able to speak in complete sentences. ?Clear to auscultation bilaterally. ?No crackles, rales, rhonchi, wheezes heard. CARDIAC SYSTEM Regular rate and rhythm. ?S1 and S2 heard no murmurs. ?Radial pulses intact bilaterally MSK Hands: ?Good gis engineer strength bilaterally. No deformities noted. ?No synovitis noted to the MCPs, PIPs or DIPs. ?No tenderness to palpation of these joints. Heberden's nodes noted. Wrists: ?Full range of motion at the wrists without pain. ?No tenderness to palpation or synovitis noted to the wrists. Elbows: Full range of motion without pain. No tenderness, weakness, swelling, increased warmth or erythema. Shoulders: Full range of motion without pain. No tenderness, weakness, swelling, increased warmth or erythema. Hips: Full range of motion without pain. Hip bursa: No tenderness to palpation Knees: ?Full range of motion. ?No tenderness, swelling, increased warmth or erythema.?No effusion or crepitations Ankles: Full range of motion. ?No tenderness, swelling, increased warmth or erythema.? Feet: ?Negative squeeze test. ?No tenderness to palpation or swelling of the MTPs. Tender points:?No tenderness to palpation of the bilateral trapezius, supraspinatus, greater trochanters, anterior costochondral junctions, bilateral gluteal areas, bilateral suboccipital muscle insertions SKIN Skin intact without rashes. Results Reviewed Results Reviewed: Laboratory Tests 08/27/23 03/16/24 07/16/24 11:20 13:47 13:49 WBC RBC Hgb Hct Plt Count ESR Sodium Potassium Chloride Carbon Dioxide BUN Creatinine Calcium Total Bilirubin AST ALT Alkaline Phosphatase C-Reactive Protein Total Protein Albumin IgG Total 844 IgA Total 89 IgM 59 PL-7 Antibody 15 H Double Strand DNA Ab 74 H NT5C1A IgG Antibody 38 H 09/08/24 08:10 WBC 11.3 H RBC 5.22 Hgb 15.6 Hct 46.3 Plt Count 155 L ESR 1 Sodium 136 Potassium 4.6 Chloride 102 Carbon Dioxide 26 BUN 23 H Creatinine 1.01 Calcium 9.7 Total Bilirubin 0.4 AST 37 ALT 75 H Alkaline Phosphatase 52 C-Reactive Protein < 0.04 Total Protein 7.1 Albumin 4.5 IgG Total IgA Total IgM PL-7 Antibody Double Strand DNA Ab NT5C1A IgG Antibody XR Chest 08/09/24 FINDINGS: The lungs are expanded with prominent diffuse interstitial markings throughout both lungs similar previous study. No consolidation pleural effusion seen. The heart size and pulmonary vascularity is normal. There is mild spondylosis dorsal spine. IMPRESSION: Diffuse bilateral interstitial opacities unchanged to previous exam. No consolidation, mass or pleural effusion. Assessment & Plan Assessment & Plan (1) Seronegative rheumatoid arthritis: Comment: RTX 1 g X 2 doses 07/2023 1 dose 03/2024 followed by multiple infections Code(s): M06.00 - Rheumatoid arthritis without rheumatoid factor, unspecified site Category: Medical Plan: #Seronegative RA Patient with seronegative rheumatoid arthritis currently with no evidence of active synovitis on examination today he is on 15 mg of prednisone. Given his concern for infection I think the next best treatment would potentially be anakinra daily injections. Because of its fast onset and rapid metabolism it is easy to stop in the setting of an infection. For now patient would like to slowly taper his steroids and see if he has any return of symptoms. While his joints may be under control now the concern is that he is not covered for his ILD. He last received rituximab 03/2024. For the time being he is covered in terms of his RA until the end of this month. (September) Other RA ILD treatments include tocilizumab but patient is concerned about the immunosuppressive side effects of this medication and given his history of gastric lymphoma status post resection he is concerned about the risk of diverticulitis with intestinal perforation. Which I agree is concerning. For now we will continue to monitor him on steroids. Decrease his steroids from 15 mg to 12.5mg. I will follow up with him in November. At that time we will have the discussion about other potential agents that can treat his RA ILD and his inflammatory arthritis. There are case reports of using anakinra for RA ILD in cases where it is tocilizumab resistant. I already discussed this with patient and he is willing to do daily injections. For now we will monitor him on Prednisone and follow up in 2 months. Plan - Decrease prednisone to 12.5mg daily - Consider anakinra to cover RA and RA ILD - RTC 2 months - Labs prior to visit: CBC, CMP, ESR, CRP, hepatitis panel, T spot References Kelechi C, Thea B. Interstitial lung diseases induced or exacerbated by DMARDS and biologic agents in rheumatoid arthritis: a systematic literature review.?Semin Arthr Rheum.?(2014) 43:613?26. doi: 10.1016/j.semarthrit.2013.09.005 Onofre BARRERA. The use of anakinra, an interleukin-1 receptor antagonist, in the treatment of rheumatoid arthritis.?Rheum Dis Clin [place].?(2003) 30:365?80. doi: 10.1016/j.rdc.2003.01.005 Caroline T, Dipti A, Franko D, Rema ELY, Oscar Coe. Biologic Treatments in Interstitial Lung Diseases. [facility] ([facility]). 2018Oct 21;6:41. doi: 10.3389/fmed.2019.54756. PMID: 65912163; PMCID: [id number]. (2) detention (current) use of systemic steroids: Code(s): Z79.52 - terminal press operator (current) use of systemic steroids Category: Medical Plan: #Long-term Use of Steroids Discussed with patient the risks and benefits of steroid for managing the rheumatic condition Benefits include: - Reduced pain, improved mobility, increased participation in activities, and decreased progression of disease Risks include: - GI upset, potential ultrasound worsening or formation (especially in patients > 65 years old), elevated blood pressure/worsening hypertension, elevated blood sugar/worsening diabetes control, worsening of bone density, elevated lipids/worsening triglycerides, cataract formation, weight gain Recommended using proton pump inhibitors (PPIs) for the duration of steroid use to reduce the risk of gastric ulcers and vitamin-D daily to reduce the risk of osteoporosis Labs checked: ?A1c, T spot, hepatitis-B and C serologies Pneumocystis jiroveci prophylaxis: ?Patient with risk factors including steroids greater than 50 mg for more than 30 days, age greater than 60 years, and lung involvement from underlying rheumatic disease requires prophylaxis and will be given so Plan I spent 30 minutes reviewing the record and labs, taking a history, examining the patient, discussing the treatment plan and documenting in the medical record Orders: Orders Complete Blood Count Auto Diff 2 Months M06.00 - Rheumatoid arthritis without rheumatoid factor, unspecified site Erythrocyte Sedimentation Rate 2 Months M06.00 - Rheumatoid arthritis without rheumatoid factor, unspecified site Comprehensive Met. 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
--- OUTSIDE RECORDS SUMMARY | 2024-09-23 15:27 | XMS_ITS | Patient Health Record ---
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) Active confirmed 454851652 Problem Gastroesophageal reflux disease, esophagitis presence not specified (K21.9) Active confirmed 420075598 Problem Hiatal hernia (K44.9) Active confirmed Hiatal hernia (34611543) 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 Gastric lymphom a (089347082) Problem Gastritis (K29.70) Active confirmed Gas tritis (1961028) Problem History of gastric cancer (Z85.028) Active confirmed History of malignant neoplasm of stomach (837276265) Problem Dysphagia, unspecified type (R13.10) Active confirmed 60008235 Problem 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 Cordero esophagus (243580838) Problem History of hepatitis C (Z86.19) Active confirmed History of hepatitis C (92006477253605) Problem Gastric ulcer (K25.9) Active confirmed Gastric ulcer (116696866) Problem Diverticulosis of colon (K57.30) Active confirmed Diverticulosi s of colon (464651948) Encounters Encounter Location Date Provider Diagnosis [facility] [address] [place] [address] 06/03/2024 Joshua Yuen [facility] [address] [place] [address] 06/02/2024 Joshua Yuen PLAN OF TREATMENT Pending [...] Richey Alpa , 10/05/2024 10:50:00 AM, [address], [address], [place], [address], Insurance Providers Payer Name Payer Address Payer Phone Subscriber Number Group Number Insured Name Patient Relationship to Insured Coverage Start Date Coverage End Date MEDICARE OF [place] [address] JACQUELINE GREEN [address] [id number] MULUGETA DOVE Self - patient is the insured MEDEX ATTN CLAIMS [address] [place] [address] [phone] [id number] MULUGETA DOVE Self - patient is the [...] illness--lasts for up to 3 days Denies [place],DM,CVA,Lung disease,renal dise ase EGD in 06/2012 with [...]
--- OUTSIDE RECORDS SUMMARY | 2024-09-23 15:27 | XMS_ITS ---
Author Organization [facility] Address [address] [place] [address] Care Team Providers Care Motor Route Carrier Name Role Phone SHANITA RODRIGUEZ Primary Care Provider Joshua Downey [phone] REASON FOR VISIT Patient presents today for gastric ulcer Encounters Encounter Location Date Provider Diagnosis [facility] [address] [place] [address] 06/03/2024 Joshua Yuen PLAN OF TREATMENT Next Appt Details Provider Name:Joshua Yuen , 10/05/2024 10:50:00 AM, [address], [address], [place], [address],
--- OUTSIDE RECORDS SUMMARY | 2024-09-23 15:27 | XMS_ITS | Encounter Summary ---
Author Organization [facility] Address [address] [place] [address] Care Team Providers Care Force Dispatcher Name Role Phone Unavailable Primary Care Provider Unavailabl e Encounter Details Date Type Department Care Team (Late st Contact Info) Description 06/23/2024 Lab Requisition [facility] [address] [facility] [place] [address] Jose Boyd MD [address] [facility] [address] [place] [address] Benign essential microscopic hematuria Social History Tobacco Use Types Packs/Day Years Used Date Smoking Tobacco: Never Assessed Sex and Gender Information Value Date Recorded Sex Assigned at Not on file Legal Sex Male 11:52 AM EST Gender Identity Not on file Sexual Orientation [...] high grade urothelial carcinoma. 07/09/2024 10:33 AM [facility] Gross Description A. Urine, Voided, : Recd 1 TP cyto. 07/09/2024 10:33 AM [facility] Disclaimer Unless otherwise specified, all tissue is 10% NB formalin fixed and paraffin embedded. 07/09/2024 10:33 AM [facility] Tissue Urine specimen from urethra / Unknown 06/17/2024 06/23/2024 12:00 PM EST us Jose Boyd MD LAB PATHOLOGY ORDERABLES Fi nal Result [facility] ([facility]) [facility] [address] [place] [address], [place] [phone] documented in this encounter Visit Diagnoses Diagnosis Benign essential microscopic hematuria documented in this encounter
--- OUTSIDE RECORDS SUMMARY | 2024-09-23 15:27 | XMS_ITS ---
Author Organization [facility] Address [address] [place] [address] Care Team Providers Care Structural Metal Worker Name Role Phone SHANITA RODRIGUEZ Primary Care Provider Joshua Downey [phone] REASON FOR VISIT r/s appt Encounters Encounter Location Date Provider Diagnosis [facility] [address] [place] [address] 06/02/2024 Joshua Yuen PLAN OF TREATMENT Next Appt Details Provider Name:Joshua Yuen , 10/05/2024 10:50:00 AM, [address], [address], [place], [address],
--- OUTSIDE RECORDS SUMMARY | 2024-09-23 15:27 | XMS_ITS | Clinical Summary ---
Author Organization [address] Address [address] [place] [address] Phone Care Team Providers Care Geothermal Installer Name Role Phone Unavailable Primary Care Provider Unavailabl e Encounters Date Type Department Care Team Description 06/23/2024 Lab Requisition [facility] - Main Lab [address] [place] [address] Jose Boyd MD Benign essential [...] Vaccines (1 of 2) 2003 Pneumococcal Vaccine: 50+ Ye ars (1 of 1 - PCV) [...] on patient's age to complete this topic Insurance MEDICARE MED [facility]
--- OUTSIDE RECORDS SUMMARY | 2024-09-23 15:27 | XMS_ITS ---
Author Organization [facility] Address [address] [place] [address] Care Team Providers Care Microsoft Access Developer Name Role Phone SHANITA RODRIGUEZ Primary Care Provider Joshua Downey [phone] ALLERGIES Allergen (clinical drug ingredient) Drug/Non Drug Allergy documented on EMR Reaction Allergy Type Onset Date Status Morphine Sulfate Unknown Drug Allergy Active Substance [...] Hiatal hernia (K44.9) Active confirmed Hiatal hernia ([id number]) VITAL SIGNS BMI 26.58 kg/m2 06/03/2023 Blood pressure systolic 000 mm Hg 06/03/20 23 Blood pressure diastolic 00 mm Hg 023 Height 69 in 06/03/2023 Temperature 98.7 degrees Fahrenheit 06/03/20 23 Weight 180 lbs 06/03/2023 Encounters Encounter Location Date Provider Diagnosis [facility] [address] [place] [id number] 06/03/2023 Joshua Yuen 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 ; [...] Provider Name:Joshua Yuen , 10/05/2024 10:50:00 AM, [address] [place] [address], [address], [place], [address], Progress Notes * Examination Category Sub-Category Detail [...]
[2024-09-23 15:30] VITALS: BP 140/80; PULSE 64; RESP 16; O2SAT 98; BMI 28.7
== END 2024-09-23 16:02 | disposition home or self-care (01) ==
LOC: HO.RHE 15:25
PROVIDERS: PCP Nurse Practitioner Family; Visit Provider Student in an Organized Health Care Education/Training Program
DX: M06.00 Rheumatoid arthritis without rheumatoid factor, unspecified site (principal); Z79.52 Long term (current) use of systemic steroids
CPT/HCPCS: 99214; G2211

== ENCOUNTER → 2024-09-23 15:25 | Outpatient (BNVA) | payer MEDICARE, SELFPAY | PROVIDERS: PCP Nurse Practitioner Family; Visit Provider Student in an Organized Health Care Education/Training Program | DX: M06.00 Rheumatoid arthritis without rheumatoid factor, unspecified site (principal); Z79.52 Long term (current) use of systemic steroids | CPT/HCPCS: 99212 ==

== ENCOUNTER 2024-10-21 09:09 | Outpatient (REF) | payer MEDICARE, SELFPAY ==
--- OUTSIDE RECORDS SUMMARY | 2024-10-21 10:35 | XMS_ITS | Clinical Summary ---
Author Organization [address] Address [address] [place] [address] Phone Care Team Providers Care Residency Program Coordinator Name Role Phone Unavailable Primary Care Provider Unavailabl e Social History Tobacco Use Types Packs/Day Years Used Date Smoking Tobacco: Never Assessed Sex and Gender Information Value Date Recorded Sex Assigned at Not on file Legal Sex Male 11:52 AM EST Gender Identity Not on file Sexual Orientation Not on file Plan of Treatment Health Maintenance Due Date Last Done Comments DTaP,Tdap,and Td Vaccines (1 - Tdap) 1972 Pneumococcal Vaccine: 50+ Ye ars (1 of 1 - PCV) 2003 Zoster Vaccines (1 of 2) 2003 COVID-19 Vaccine ( - 2023-2 5 season) [...] patient's age to complete this topic Meningococcal B Vacine Aged Out No lo nger eligible based on patient's age to complete this topic RSV Immunization Patients Un raji 20 months Aged Out No longer eligible b ased on patient's age to complete this topic Varicella Vaccines Aged Out No longer eligible based on patient's age to complete this topic Insurance MEDICARE [facility]
--- OUTSIDE RECORDS SUMMARY | 2024-10-21 10:35 | XMS_ITS ---
Author Organization [facility] Address [address] [place] [address] Care Team Providers Care Jewelry Bench Molder Name Role Phone SHANITA RODRIGUEZ Primary Care Provider Joshua Downey [phone] REASON FOR VISIT cancelled by provider Encounters Encounter Location Date Provider Diagnosis [facility] [address] [place] [address] 10/06/2024 Joshua Yuen Plan Of Treatment Next Appt Details Provider Name:Joshua Yuen , 10/25/2025 02:10:00 PM, [address], [address], [place], [address], Progress Notes * VALERIA DOVE:1955 ( 69 yo M)Acc No.[id number]:10/06/2024 Patient:?MULUGETA DOVE :1955???Age:69 Y???Sex:Male Address:[facility] [place] [address] * true * Date:? Generated for Printi ng/Famassimog/eTransmitting on:?10/21/2024 10:35 AM EDT
--- OUTSIDE RECORDS SUMMARY | 2024-10-21 10:35 | XMS_ITS ---
Author Organization [facility] Address [address] [place] [address] Care Team Providers Care Rack Maker Name Role Phone SHANITA RODRIGUEZ Primary Care Provider Joshua Downey [phone] REASON FOR VISIT Patient presents today for a f/u from gastric ulcer Encounters Encounter Location Date Provider Diagnosis [facility] [address] [facility] [address] [place] [phone] 10/05/2024 Joshua Yuen Plan Of Treatment Next Appt Details Provider Name:Joshua Yuen , 10/25/2025 02:10:00 PM, [address], [address], [place], [address], Progress Notes * MULUGETA DOVEDOB:1955 ( 69 yo M)Acc No.[id number]:10/05/2024 Progress Notes Patient:?MULUGETA DOVE Provider:?Joshua Yuen MD :1955???Age:69 Y???Sex:Male Ham e:10/05/2024 Address:[facility] [id number] Pcp:SHANITA RODRIGUEZ Subjective: * Chief Complaints: * ???1. Patient presents today for a f/u from gastric ulcer. * Medical History:? Objective: * Vitals:? Assessment: Plan: * Treatment: * * The named appointment provid er may or may not be the originator of this progress note, and it is not deemed complete until electronically signed by the appointment provider. Sign off status: Pending * Provider:?Joshua Yuen MD Date:? 025 Generated for Wilma mathew/Ivania/Liss on:?10/21/2024 10:35 AM EDT
--- OUTSIDE RECORDS SUMMARY | 2024-10-21 10:36 | XMS_ITS | Encounter Summary ---
Author Organization [facility] Address [address] [place] [address] Care Team Providers Care Supervisor Fiber Locking Name Role Phone Unavailable Primary Care Provider Unavailabl e Encounter Details Date Type Department Care Team (Late st Contact Info) Description 06/23/2024 Lab Requisition [facility] - Main Lab [address] [facility] [place] [address] Jose Boyd MD [address] [facility] [address] [place] [address] Benign essential microscopic hematuria Social History Tobacco [...] high grade urothelial carcinoma. 07/09/2024 10:[address] [facility] Gross Description A. Urine, Voided, : Recd 1 TP cyto. 07/09/2024 10:[address] [facility] Disclaimer Unless otherwise specified, all tissue is 10% NB formalin fixed and paraffin embedded. 07/09/2024 10:[address] [facility] Tissue Urine specimen from urethra / Unknown 06/17/2024 06/23/2024 12:00 PM EST us Jose Boyd MD LAB PATHOLOGY ORDERABLES Fi nal Result [facility] [address] [place] [address], [place] [phone] documented in this encounter Visit Diagnoses Diagnosis Benign essential microscopic hematuria documented in this encounter
--- OUTSIDE RECORDS SUMMARY | 2024-10-21 10:36 | XMS_ITS ---
Author Organization [facility] Address [address] [place] [address] Care Team Providers Care Boarding Mother Name Role Phone SHANITA RODRIGUEZ Primary Care Provider Joshua Downey Unavailable [phone] Allergies Allergen (clinical drug ingredient) Drug/Non Drug Allergy documented on EMR Reaction Allergy Type Onset Date Status morphine Morphine Sulfate Unknown Drug Allergy Active Substance with hydrogen/potassium adenosine triphosphatase enzyme system inhibitor mechanism of action (substance) PPI's (uncoded) Unknown Allergy Active REASON FOR VISIT elevated liver funtion tests Medications Medication SIG (Take, Route, Frequency, Duration) Notes Start Date End Date Status Losartan Potassium 25 MG TAKE 1 TABLET B Y MOUTH TWICE A DAY FOR 30 DAYS Oral for 30 Days Active predniSONE 10 MG 10 mg in am 5 mg in pm Oral 10 in am 5 in pm for 30 days Active Problems Problem Type SNOMED Code ICD Code Onset Dates Problem Status W/U Status Risk Notes Problem Elevated liver enzymes level (267074792) Elevated liver function tests (R94.5) Active confirmed Problem Fatty liver (821462065) Fatty liver (K76.0) Active confirmed Vital Signs Blood pressure systolic 111 mm Hg 10/20/19 25 Blood pressure diastolic 11 mm Hg 025 Height 69 in 10/19/2024 Weight 190 lbs 10/19/2024 BMI 28.06 kg/m2 10/19/2024 Encounters Encounter Location Date Provider Diagnosis [facility] [address] [place] [address] 10/19/2024 Joshua Yuen History of hepatitis C Z86.19 ; Elevated liver function tests R94.5 and Fatty liver K76.0 Assessments Encounter Date Diagnosis (ICD Code) Assessment Notes Treatment Notes Treatment Clinical Notes Section Notes 10/19/2024 History of hepatitis C (ICD-10 - Z86.19) Overall, Mulugeta does not appear to be having any symptoms nor showing any signs of worsening liver disease. He is not describing any new nor worrisome GI complaints in general. His most recent liver profiles over the last couple of months look quite reassuring with just minimal elevation of the liver enzymes. The 2 CT scans from 2023 are also reassuring and without any sign of significant liver disease. I advised him that based on his clinical history of longstanding prednisone use over the past couple of years, some weight gain, and the recent hospitalization for what sounds like fairly severe COVID, I suspect that the mild and newly elevated LFTs are primarily related to fatty liver. I do not think he has any other significant process occurring within his liver. We did review the diagnosis of fatty liver in detail and at this point I advised him that the best thing to do would be to try to watch his diet, lose some weight, avoid any hepatotoxins such as alcohol, and to use as a low-dose of prednisone as possible under the direction of his physician. I do not think he needs a liver biopsy nor any other specific treatment for his liver at this time. However, I shall check an abdominal ultrasound with elastography for further evaluation of his liver, along with laboratories for follow-up of the previous chronic hepatitis C infection including an alpha-fetoprotein level and a hepatitis C viral load. I advised him that as long as the LFTs remain just minimally elevated then I do not think he would need any particular intervention at this time. I will plan to see him in 1 year for a follow-up visit but did advise him to certainly call prior to that if he has any problems or questions I can be of assistance with. I did advise him to let me know if he has any other blood tests down the road in which he is told that his LFT are significantly elevated. We did discuss that some of his ongoing issues currently with the systemic fatigue, intermittent problems with his blood pressure, and some palpitations with cardiac rhythm abnormalities seen on his EKGs, could be as a result of his COVID infection last year with some resultant long COVID type symptoms affecting his autonomic nervous system. I did advise him to review that with you. Mulugeta was comfortable with this plan. Thank you again for allowing me to participate in Mulugeta's care. I shall continue to keep you advised of his progress. 10/19/2024 Elevated liver function tests (ICD-10 - R94.5) Overall, Mulugeta does not appear to be having any symptoms nor showing any signs of worsening liver disease. He is not describing any new nor worrisome GI complaints in general. His most recent liver profiles over the last couple of months look quite reassuring with just minimal elevation of the liver enzymes. The 2 CT scans from 2023 are also reassuring and without any sign of significant liver disease. I advised him that based on his clinical history of longstanding prednisone use over the past couple of years, some weight gain, and the recent hospitalization for what sounds like fairly severe COVID, I suspect that the mild and newly elevated LFTs are primarily related to fatty liver. I do not think he has any other significant process occurring within his liver. We did review the diagnosis of fatty liver in detail and at this point I advised him that the best thing to do would be to try to watch his diet, lose some weight, avoid any hepatotoxins such as alcohol, and to use as a low-dose of prednisone as possible under the direction of his physician. I do not think he needs a liver biopsy nor any other specific treatment for his liver at this time. However, I shall check an abdominal ultrasound with elastography for further evaluation of his liver, along with laboratories for follow-up of the previous chronic hepatitis C infection including an alpha-fetoprotein level and a hepatitis C viral load. I advised him that as long as the LFTs remain just minimally elevated then I do not think he would need any particular intervention at this time. I will plan to see him in 1 year for a follow-up visit but did advise him to certainly call prior to that if he has any problems or questions I can be of assistance with. I did advise him to let me know if he has any other blood tests down the road in which he is told that his LFT are significantly elevated. We did discuss that some of his ongoing issues currently with the systemic fatigue, intermittent problems with his blood pressure, and some palpitations with cardiac rhythm abnormalities seen on his EKGs, could be as a result of his COVID infection last year with some resultant long COVID type symptoms affecting his autonomic nervous system. I did advise him to review that with you. Mulugeta was comfortable with this plan. Thank you again for allowing me to participate in Mulugeta's care. I shall continue to keep you advised of his progress. 10/19/2024 Fatty liver (ICD-10 - K76.0) Overall, Mulugeta does not appear to be having any symptoms nor showing any signs of worsening liver disease. He is not describing any new nor worrisome GI complaints in general. His most recent liver profiles over the last couple of months look quite reassuring with just minimal elevation of the liver enzymes. The 2 CT scans from 2023 are also reassuring and without any sign of significant liver disease. I advised him that based on his clinical history of longstanding prednisone use over the past couple of years, some weight gain, and the recent hospitalization for what sounds like fairly severe COVID, I suspect that the mild and newly elevated LFTs are primarily related to fatty liver. I do not think he has any other significant process occurring within his liver. We did review the diagnosis of fatty liver in detail and at this point I advised him that the best thing to do would be to try to watch his diet, lose some weight, avoid any hepatotoxins such as alcohol, and to use as a low-dose of prednisone as possible under the direction of his physician. I do not think he needs a liver biopsy nor any other specific treatment for his liver at this time. However, I shall check an abdominal ultrasound with elastography for further evaluation of his liver, along with laboratories for follow-up of the previous chronic hepatitis C infection including an alpha-fetoprotein level and a hepatitis C viral load. I advised him that as long as the LFTs remain just minimally elevated then I do not think he would need any particular intervention at this time. I will plan to see him in 1 year for a follow-up visit but did advise him to certainly call prior to that if he has any problems or questions I can be of assistance with. I did advise him to let me know if he has any other blood tests down the road in which he is told that his LFT are significantly elevated. We did discuss that some of his ongoing issues currently with the systemic fatigue, intermittent problems with his blood pressure, and some palpitations with cardiac rhythm abnormalities seen on his EKGs, could be as a result of his COVID infection last year with some resultant long COVID type symptoms affecting his autonomic nervous system. I did advise him to review that with you. Mulugeta was comfortable with this plan. Thank you again for allowing me to participate in Mulugeta's care. I shall continue to keep you advised of his progress. Plan Of Treatment Pending Test Test Name Order Date LIVER PROFILE 10/19/2024 CBC w DIFF 10/19/2024 ALPHA-FETOPROTEIN,TUMOR MARKER HEPATITIS C VIRAL LOAD 10/19/2024 Prothrombin Time INR 10/19/2024 Liver Fibrosis Pnl 10/19/2024 US abdomen comp w elastography 5 Next Appt Details Follow Up: 1 Year, Reason: Provider Name:Joshua Yuen , 10/25/2025 02:10:00 PM, [address], [address], [place], [address], Progress Notes * MULUGETA DOVEDOB:1955 ( 69 yo M)Acc No.[id number]:10/19/2024 Progress Notes Patient:?MULUGETA DOVE Provider:?Joshua Yuen MD :1955???Age:69 Y???Sex:Male Ham e:10/19/2024 Address:[address] [place], [place] [id number] Pcp:SHANITA RODRIGUEZ Subjective: * Chief Complaints: * ???1. Elevated liver funtion tests. * HPI: ???incontinence:? I saw Mulugeta in follow-up today in regard to his previous history of chronic hepatitis C, elevated LFTs, and previous history of gastric lymphoma. I last saw Mulugeta in May 2023. Since that time he reports he has had continued problems with his rheumatologic condition and pulmonary status requiring longstanding prednisone to 1 degree or another, as well as treatment with rituximab and most recently a single infusion of Actrema in July 2024. He also describes a several week hospitalization for COVID in April 2024 that resulted in some worsening cardiopulmonary symptoms with palpitations, hypertension, and shortness of breath. He has also been noted to have developed elevated LFTs with the liver enzymes being anywhere from 2-3 times normal since at least April 2024. He has also continued follow-up with Dr. Greene in regard to his previous gastric lymphoma. Mulugeta has had some increasing belching but no significant heartburn, dysphagia, nausea, nor vomiting. He has been unable to tolerate different acid suppression regimens including PPIs and H2 blockers due to his longstanding issue of not being able to tolerate many prescription drugs. He reports that his bowel movements have been fairly regular and without any sign of bleeding. He has not noticed any signs of jaundice, significant pruritus, increasing abdominal girth, nor edema. He does describe fatigue and some weight gain, the latter of which he attributes to his longstanding use of prednisone at this point and increased appetite. He did have an ALT as high as 133 in April 2024 when he was hospitalized for his COVID infection. Over the past couple of months his LFTs have improved where the AST is just minimally elevated several points above normal and the ALT is no more than twice normal. His alk phos and total bilirubin have remained normal, as has his CBC with platelet count, chemistries and renal function, blood sugar, and PT with INR. He does not use any alcohol. The last imaging of his abdomen was 2 CT scans in 2023 describing a fatty liver, but no evidence of cirrhosis, ascites, nor splenomegaly. 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 for H.pylori., Hx of kidney stones, EGD in 02/2016 with small to moderate-sized hiatal hernia and a small area of Cordero's--biopsies neg. for dysplasia; biopsies from the proximal esophagus were negative for eosinophilic esophagitis, EGD in 06/2019 with similar results as above, Negative screening colonoscopy in December of 2021, EGD in December of 2021 revealed his known small area of Cordero's with biopsies negative for dysplasia, but also revealed a small proximal gastric ulcer with biopsies revealing lymphoma. Gastric biopsies were negative for H. 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 Greene and completed radiation treatments in April of 2022 , EGD 08/2022 negative for lymphoma and Hpylori, Developed Pneumonia and Rheumatoid arthritis in 09/2022--treated with steroids and going to start IV Rituximab with Dr. Arellano from rheumatology, [facility] with hospitalization in April 2024 with resultant issues with intermittent hypertension, palpitations, and worsening fatigue. * Surgical History:?Hernia holley jericho-right inguinal , Prostate surgery , Wrist surgery , CCY on 10/14/[address] Pate for RUQ pain and abnormal HIDA with decreased ejection fraction , Left knee , Rotator cuff repair left 11/2020, Lipoma on back . * Family History:?Father: dece ased 79 yrs, Father - esophageal cancer and prostate cancer.?Mother: alive 93 yrs.? Father had esophageal cancer. There is no family history of colorectal cancer. * Social History:?Tobacco Use:?Tobacco Use/Smoking?Are you a: nonsmoker.?Drugs/Alcohol:?Alcohol Screen?Points: 0, Interpretation: Negative.?Miscellaneous:?Marital status: Single. Occupation: The patient works for the [employer]--retired October 11, 2020. 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 ???He does not smoke nor use any significant amounts of alcohol. * Medications:?Taking predniSO NE 10 MG Tablet 10 mg in am 5 mg in pm Oral 10 in am 5 in pm , Taking Losartan Potassium 25 MG Tablet TAKE 1 TABLET BY MOUTH TWICE A DAY FOR 30 DAYS Oral , Discontinued Prilosec 20 MG Capsule Delayed Release QOD Orally * Allergies:?Morphine Sulfate, PPI's. Objective: * Vitals:?Wt:190lbs, Ht: 69 in , BMI:28.06Index, BP:111/11mm Hg, Wt-k.18. Assessment: * Assessment: 1.?History of hepatitis C - Z86.19 (Primary)???2.?Elevated liver function tests - R94.5???3.?Fatty liver - K76.0??? Overall, Mulugeta does not appea r to be having any symptoms nor showing any signs of worsening liver disease. He is not describing any new nor worrisome GI complaints in general. His most recent liver profiles over the last couple of months look quite reassuring with just minimal elevation of the liver enzymes. The 2 CT scans from 2023 are also reassuring and without any sign of significant liver disease. I advised him that based on his clinical history of longstanding prednisone use over the past couple of years, some weight gain, and the recent hospitalization for what sounds like fairly severe COVID, I suspect that the mild and newly elevated LFTs are primarily related to fatty liver. I do not think he has any other significant process occurring within his liver. We did review the diagnosis of fatty liver in detail and at this point I advised him that the best thing to do would be to try to watch his diet, lose some weight, avoid any hepatotoxins such as alcohol, and to use as a low-dose of prednisone as possible under the direction of his physician. I do not think he needs a liver biopsy nor any other specific treatment for his liver at this time. However, I shall check an abdominal ultrasound with elastography for further evaluation of his liver, along with laboratories for follow-up of the previous chronic hepatitis C infection including an alpha-fetoprotein level and a hepatitis C viral load. I advised him that as long as the LFTs remain just minimally elevated then I do not think he would need any particular intervention at this time. I will plan to see him in 1 year for a follow-up visit but did advise him to certainly call prior to that if he has any problems or questions I can be of assistance with. I did advise him to let me know if he has any other blood tests down the road in which he is told that his LFT are significantly elevated. We did discuss that some of his ongoing issues currently with the systemic fatigue, intermittent problems with his blood pressure, and some palpitations with cardiac rhythm abnormalities seen on his EKGs, could be as a result of his COVID infection last year with some resultant long COVID type symptoms affecting his autonomic nervous system. I did advise him to review that with you. Mulugeta was comfortable with this plan. Thank you again for allowing me to participate in Mulugeta's care. I shall continue to keep you advised of his progress. Plan: * Treatment: * 2.?Elevated liver function tests?LAB: LIVER PROFILE ?LAB: CBC w DIFF ?LAB: ALPHA-FETOPROTEIN,TUMOR MARKER ?LAB: HEPATITIS C VIRAL LOAD ?LAB: Prothrombin Time INR ?LAB: Liver Fibrosis Pnl ?Imaging: US abdomen comp w elastography* sched for 11/19/24 at 9:30 am [facility] Ultrasound Dept 2nd floorfasting 8 hrs prior * 3.?Fatty liver?LAB: LIVER PROFILE ?LAB: CBC w DIFF ?LAB: ALPHA-FETOPROTEIN,TUMOR MARKER ?LAB: HEPATITIS C VIRAL LOAD ?LAB: Prothrombin Time INR ?LAB: Liver Fibrosis Pnl ?Imaging: US abdomen comp w elastography* sched for 11/19/24 at 9:30 am [facility] Ultrasound Dept 2nd floorfasting 8 hrs prior * * Preventive Medicine:? ??Counseling:?Care goal follow-up plan:?Above Normal BMI Follow-up?Giving encouragement to exercise,?BMI management provided?Yes.? ??Screenings:?Fall Risk Screening?Fall Risk Assessment:?No falls in the past year,?Screening:?No falls in the past year,?Assessment:?Not performed, no reason specified,?Plan of Care:?Not documented, no reason specified.? * Follow Up:?1 Year * * The named appointment provid er may or may not be the originator of this progress note, and it is not deemed complete until electronically signed by the appointment provider. Sign off status: Pending * Provider:?Joshua Yuen MD Date:? 025 Generated for Wilma mathew/Ivania/Nilsonitting on:?10/21/2024 10:35 AM EDT
--- OUTSIDE RECORDS SUMMARY | 2024-10-21 10:36 | XMS_ITS | Patient Health Record ---
Author Organization [facility] Address [address] [place] [address] Care Team Providers Care Truck Rental Clerk Name Role Phone SHANITA RODRIGUEZ Primary Care Provider Joshua Downey Unavailable [phone] Allergies Allergen (clinical drug ingredient) Drug/Non Drug Allergy documented on EMR Reaction Allergy Type Onset Date Status morphine Morphine Sulfate Unknown Drug Allergy Active Substance with hydrogen/potassium adenosine triphosphatase enzyme system inhibitor mechanism of action (substance) PPI's (uncoded) Unknown Allergy Active Reason For Referral No Information Medications Medication SIG (Take, Route, Frequency, Duration) Notes Start Date End Date Status Losartan Potassium 25 MG TAKE 1 TABLET B Y MOUTH TWICE A DAY FOR 30 DAYS Oral for 30 Days Active predniSONE 10 MG 10 mg in am 5 mg in pm Oral 10 in am 5 in pm for 30 days Active Immunizations Vaccine Route Administration Date Status Comme nts Influenza Unknown 04/11/2021 Administered Influenza Unknown 04/29/2019 Refused Problems Problem Type SNOMED Code ICD Code Onset Dates Problem Status W/U Status Risk Notes Problem 216468366 Encounter for screening for malignant neoplasm of colon (Z12.11) Active confirmed Problem 235165616 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 Problem Fatty liver (578573456) Fatty liver (K76.0) Active confirmed Problem 205887552 Gastroesophageal reflux disease, esophagitis presence not specified (K21.9) Active confirmed Problem Hiatal hernia (98803467) Hiatal hernia (K44.9) Active confirmed Problem 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 Problem Gastritis (7898096) Gastritis (K29.70) Active confirmed Problem History of malignant neoplasm of stomach (777703150) History of gastric cancer (Z85.028) Active confirmed Problem 24114645 Dysphagia, unspecified type (R13.10) Active confirmed Problem 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 Problem History of hepatitis C (34315763081700) History of hepatitis C (Z86.19) Active confirmed Problem Elevated liver enzymes level (107339717) Elevated liver function tests (R94.5) Active confirmed Problem Gastric ulcer (967632356) Gastric ulcer (K25.9) Active confirmed Problem Diverticulosis of colon (063098827) Diverticulosis of colon (K57.30) Active confirmed Vital Signs Blood pressure diastolic 11 mm Hg 10/19/2024 Height 69 in 10/19/2024 Blood pressure systolic 111 mm Hg 10/19/2024 Weight 190 lbs 10/19/2024 BMI 28.06 kg/m2 10/19/2024 Encounters Encounter Location Date Provider Diagnosis [facility] [address] [place] [phone] 10/19/2024 Joshua Yuen History of hepatitis C Z86.19 ; Elevated liver function tests R94.5 and Fatty liver K76.0 [facility] [address] [place] [phone] 06/02/2024 Joshua Yuen [facility] [address] [place] [phone] 10/06/2024 Joshua Yuen Assessments Encounter Date Diagnosis (ICD Code) Assessment [...] Test Name Order Date LIVER PROFILE 11/29/2021 LIVER PROFILE 10/19/2024 CBC w DIFF 10/19/2024 ALPHA-FETOPROTEIN,TUMOR MARKER 5 ALPHA-FETOPROTEIN,TUMOR MARKER 6 HEPATITIS C VIRAL LOAD 10/19/2024 US ABDOMEN COMP WITH ELASTOGRAPHY 2021 Prothrombin Time INR 10/19/2024 Liver Fibrosis Pnl 10/19/2024 US abdomen comp w elastography Future Test Test Name Order Date UPPER GI ENDOSCOPY BALLOOON DILATION OF ESOPH 01/11/2016 UPPER GI ENDOSCOPY 04/29/2019 UPPER GI ENDOSCOPY 11/29/2021 COLONOSCOPY 11/29/2021 UPPER GI ENDOSCOPY 06/27/2022 Next Appt Details Provider Name:Joshua Yuen , 10/25/2025 02:10:00 PM, [address], [address], [place], [address], Insurance Providers Payer Name Payer Address Payer Phone Subscriber Number Group Number Insured Name Patient Relationship to Insured Coverage Start Date Coverage End Date MEDICARE OF [place] [address] [place] [address] [phone] [id number] MULUGETA DOVE Self - patient is the insured 8 [employer] ATTN CLAIMS [address] [place] [address] [id number] MULUGETA DOVE Self - patient is the insured Medical (General) History Medical History History ICD Code Previous history [...] illness--lasts for up to 3 days Denies MS,DM,CVA,Lung disease,renal dise ase EGD in 06/2012 with [...] IV Rituximab with Dr. Arellano from rheumatology [facility] with hospitalization i n April 2024 with resultant issues with intermittent hypertension, palpitations, and worsening fatigue Surgical History Surgery Date(Month/Year) Lipoma on back Rotator cuff repair left 11/2020 Left knee CCY on 10/14/[address] Pate for RUQ pain and abnormal HIDA with decreased ejection fraction Wrist surgery Prostate surgery Hernia surgery-right inguinal
[2024-10-21 10:37] LABS: MANUAL DIFF FLAG NO
[2024-10-21 10:51] LABS: Basophils Absolute Auto 0.1 X10*3/uL (0.0-0.2); Basophils Percent Auto 0.6 % (0-2); Eosinophils Percent Auto 0.2 % (0-4); Hematocrit 44.3 % (42.0-52.0); Hemoglobin 15.1 g/dl (14.0-18.0); Imm Gran Abs Auto 0.11 X10*3/uL (0.00-0.03); Lymphocytes Absolute Auto 0.7 X10*3/uL (1.2-4.9); Lymphocytes Percent Auto 6.9 % (20-40); Mean Corpuscular HGB Conc 34.1 g/dl (31.0-36.0); Mean Corpuscular Hemoglobin 30.4 pg (27.0-33.0); Mean Corpuscular Volume 89.3 fL (80.0-98.0); Monocytes Absolute Auto 0.6 X10*3/uL (0.1-1.2); Monocytes Percent Auto 5.9 % (2-11); Neutrophils Percent Auto 85.4 % (45-73); Platelet Count 191 X10*3/uL (160-400); Red Blood Count 4.96 X10*6/uL (4.60-5.80); White Blood Count 10.5 X10*3/uL (4.8-10.8)
[2024-10-21 11:04] LABS: Alanine Aminotransferase 45 U/L (0-40); Albumin Level 4.4 g/dL (3.5-5.0); Alkaline Phosphatase 68 U/L (39-117); Aspartate Amino Transferase 36 U/L (5-37); Bilirubin Direct 0.2 mg/dL (0.0-0.5); Bilirubin Total 0.6 mg/dL (0.0-1.0); Total Protein 7.4 g/dL (6.5-8.0)
[2024-10-21 11:05] LABS: INTERNATIONAL NORM RATIO 1.1 (0.9-1.1); Prothrombin Time 12.5 SEC (10.9-12.4)
[2024-10-24 07:37] LABS: HCV Log PCR <1.18 NOT DETECTED Log IU/mL (NOT DETECTED); HepC Viral Load <15 NOT DETECTED IU/mL (NOT DETECTED)
[2024-10-25 13:08] LABS: Alpha Fetoprotein 2.7 ng/mL (<6.1)
[2024-10-28 15:32] LABS: FIB-ALT 34 U/L (9-46); FIB-Alpha-2-Macroglobulin 325 mg/dL (106-279); FIB-Apolipoprotein A1 158 mg/dL (94-176); FIB-GGT 16 U/L (3-70); FIB-Haptoglobin 112 mg/dL (43-212); FIB-Total Bilirubin 0.5 mg/dL (0.2-1.2); Liver Fibrosis Score 0.49; Liver Fibrosis Stage F2; Nec Inflam Act Grade A0-A1; Nec Inflam Act Score 0.22
== END 2024-10-21 09:10 | disposition home or self-care (01) ==
LOC: HO.10HDL 09:09
PROVIDERS: Visit Provider Internal Medicine
DX: R94.5 Abnormal results of liver function studies (principal); Z86.19 Personal history of other infectious and parasitic diseases; K76.0 Fatty (change of) liver, not elsewhere classified
CPT/HCPCS: 36415; 80076; 81596; 82105; 85025; 85610; 87522

== ENCOUNTER 2024-10-26 11:50 | Outpatient (AMB) | payer MEDICARE, SELFPAY ==
[2024-10-26 11:49] VITALS: BP 132/82; PULSE 70; O2SAT 97; BMI 28.5
--- NOTE | 2024-10-26 11:49 | HO.NEPHOV ---
Vital Signs 10/26/24 11:49 10/26/24 12:15 10/26/24 12:15 Height 5 ft 9 in Weight 193 lb BMI 28.5 BP 132/82 130/80 120/80 Blood Pressure Location Lt brachial Lt brachial Lt brachial Position Sitting Sitting Standing Pulse 70 Pulse Source Pulse Oximeter Pulse Oximetry (%) 97 Oxygen Delivery Method Room Air Intake Visit Reasons: INP: HTN/ Conf Seismic Plotter Required: No Accompanied by: Self / Same As Patient Allergies morphine [MORPHINE] Allergy (Intermediate, Verified 10/26/24 11:54) HR DROPPED amlodipine Adverse Reaction (Intermediate, Verified 10/26/24 11:54) Depression azithromycin Adverse Reaction (Intermediate, Verified 10/26/24 11:54) Joint Pain clarithromycin [Prevpac] Adverse Reaction (Intermediate, Verified 10/26/24 11:54) depression (after taking for a few days) - includes most PPI lansoprazole [Prevpac] Adverse Reaction (Intermediate, Verified 10/26/24 11:54) depression (after taking for a few days) - includes most PPI ranitidine [Zantac] Adverse Reaction (Intermediate, Verified 10/26/24 11:54) depression (after taking for a few months) Prilosec Adverse Reaction (Intermediate, Uncoded 08/17/24 10:02) depression (after taking for a few days) - includes most PPI Medication List - Last Reconciled 10/26/24 by Murali Manning MD losartan 25 mg PO BID 30 days Oxygen Home Use As directed prednisone 10 mg PO DAILY 30 days prednisone 5 mg (2 x 2.5 mg) PO DAILY 30 days HPI Comments Details: Chad is a pleasant 69-year-old man who has been referred for evaluation of hypertension He has a complicated history. He has new onset hypertension. 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 He had an episode of flu and subsequently he was diagnosed with rheumatoid arthritis. He was treated with Rituxan and there was a spike in blood pressure. He was also treated with high dose of prednisone. Less than a year ago he had an episode of COVID-19 infection which was rather severe. He developed respiratory issues. There was no pulmonary embolism on CTA. Since COVID-19 infection he has had wide fluctuations in the blood pressure. He was initially given amlodipine which caused depression. He was later switched to losartan which also gave depression. He is monitoring his blood pressure at home and tailoring the losartan accordingly. Currently he is on half a tablet of losartan 25 mg twice a day. He was also noted that his blood pressure always spikes when he eats salty diet. He was cut back on salt intake significantly. No history of any alcohol abuse or any drug abuse. [facility] Medical History (Updated 10/21/24 @ 08:18 by Rudolph Kumari, 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 Pneumonia Pleural effusion ILD (interstitial lung disease) Right knee meniscal tear Abnormal biliary HIDA scan Kidney stones [place] of foot Bradycardia Left shoulder pain Normal colonoscopy (~08/2011) Lumbar spondylosis Impaired fasting glucose Dyslipidemia Benign essential hypertension History of gastric ulcer Gastritis Internal hemorrhoids Diverticulosis Benign prostatic hyperplasia Alopecia (capitis) totalis History of Lyme disease (~2009) History of hepatitis C Surgical History History of liver biopsy History of prostate surgery Status post left rotator cuff repair (~11/2020) History of esophagogastroduodenoscopy (EGD) (~06/2019) History of medial meniscus repair of left knee (~12/2016) Hx laparoscopic cholecystectomy (~10/2012) History of right inguinal hernia repair (~2011) History of surgery on right wrist Family History Father Gastric cancer Prostate cancer Family/Other Pancreas cancer Brother Skin cancer Social History Household Members: Other Household Members Other:: mother Housing: House Are you a primary child care provider to a significant other at home: No Do you presently have visiting nurse or other home services: No Alcohol intake: never Patient Tobacco Use Status: Never used Tobacco e-Cigarette/Vaping Use: Never Used Second Hand Smoke Exposure: No Advance Directives Date on File: 05/03/24 service: Yes Current occupational status: retired Cognitive needs: No Hearing needs: No Vision needs: Yes Review of Systems Const Denies fever(s) and Denies weight loss Card Denies chest pain Resp Denies cough and Denies hemoptysis GI Denies abdominal pain, Denies diarrhea and Denies nausea Musc Denies back pain Neuro Denies focal weakness Physical Exam Vital Signs: Last Vital Signs Pulse 70 10/26/24 11:49 BP 120/80 10/26/24 12:15 Pulse Ox 97 10/26/24 11:49 Oxygen Delivery Method Room Air 10/26/24 11:49 BMI result Body Mass Index 28.5 Results Reviewed Nephrology Results: Hgb 15.1 g/dl (14.0-18.0) 10/21/24 WBC 10.5 X10*3/uL (4.8-10.8) 10/21/24 Plt Count 191 X10*3/uL (160-400) 10/21/24 Sodium 136 mmol/L (135-145) 09/08/24 Potassium 4.6 mmol/L (3.3-5.1) 09/08/24 Chloride 102 mmol/L (96-108) 09/08/24 Carbon Dioxide 26 mmol/L (22-29) 09/08/24 BUN 23 mg/dL (9-16) H 09/08/24 Creatinine 1.01 mg/dL (0.5-1.4) 09/08/24 Calcium 9.7 mg/dL (8.4-10.2) 09/08/24 Urine Protein Negative mg/dL (Neg-Trace) 08/26/24 Assessment & Plan Assessment & Plan (1) HTN (hypertension): Code(s): I10 - Essential (primary) hypertension Category: Medical (2) 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 He has labile hypertension with significant spikes in blood pressure readings. Blood pressure spikes are usually associated with the increased salt intake. All these symptoms have started after the COVID-19 infection. Clinical history is suggestive of secondary hypertension. I have initiated a workup including a 24 hour ambulatory blood pressure monitoring along with serum aldosterone and plasma renin activity and serum catecholamines. In the meantime encouraged him to stay on low-sodium diet like he is already on. Continue to monitor blood pressure at home. At present there is no indication to change any of his medications. Once the basicworkup is completed returned to office in the next few weeks. . Orders: Orders Aldosterone Today I10 - Essential (primary) hypertension Aldost/Renin Today I10 - Essential (primary) hypertension AMB 24 HR B/P Monitor PLACEMENT Today I10 - Essential (primary) hypertension Renin Today I10 - Essential (primary) hypertension Catecholamines, Frac., Plasma Today I10 - Essential (primary) hypertension Coding Level of Care Code New Pt Level 4 (61958) Diagnoses HTN (hypertension) I10 [id number] syndrome U09.9
[2024-10-26 12:15] VITALS: BP 120/80; BP 130/80
--- OUTSIDE RECORDS SUMMARY | 2024-10-26 14:15 | XMS_ITS | Encounter Summary ---
Author Organization [facility] Address [address] [place] [address] Care Team Providers Care Phone Screener Name Role Phone Unavailable Primary Care Provider Unavailabl e Encounter Details Date Type Department Care Team (Late st Contact Info) Description 06/23/2024 Lab Requisition [facility] - Main Lab [address] [facility] [place] [address] Jose Boyd MD [address] [facility] [address] [place] [address] Benign essential microscopic hematuria Social History Tobacco [...] high grade urothelial carcinoma. 07/09/2024 10:33 AM [facility] Gross Description A. Urine, Voided, : Recd 1 TP cyto. 07/09/2024 10:33 AM [facility] Disclaimer Unless otherwise specified, all tissue is 10% NB formalin fixed and paraffin embedded. 07/09/2024 10:33 AM [facility] Tissue Urine specimen from urethra / Unknown 06/17/2024 06/23/2024 12:00 PM EST us Jose Boyd MD LAB PATHOLOGY ORDERABLES Fi nal Result [facility] [address] [place] [address], [place] [phone] documented in this encounter Visit Diagnoses Diagnosis Benign essential microscopic hematuria documented in this encounter
--- OUTSIDE RECORDS SUMMARY | 2024-10-26 14:15 | XMS_ITS | Patient Health Record ---
Author Organization [facility] Address [address] [place] [address] Care Team Providers Care Targeteer Name Role Phone SHANITA RODRIGUEZ Primary Care Provider Joshua Downey [phone] Allergies Allergen (clinical drug ingredient) Drug/Non Drug Allergy documented on EMR Reaction Allergy Type Onset Date Status morphine Morphine Sulfate Unknown Drug Allergy Active Substance with hydrogen/potassium adenosine triphosphatase enzyme system inhibitor mechanism of action (substance) PPI's (uncoded) Unknown Allergy Active Results Component Value Reference Range Notes Prothrombin Time INR Reviewed date:10/21/2024 11:22:25 AM Interpretation: Performing Lab:[address] [id number] Notes/Report: Prothrombin Time 12.5 10.9-12.4 SEC INTERNATIONAL NORM RATIO 1.1 0.9-1.1 INTERNATIONAL NORMALIZED RATIO (INR) REFERENCE RANGES Reference Range For patients not on anticoagulant therapy: 0.9 - 1.1 INR ranges for oral anticoagulant therapy: For prevention and treatment of venous thrombosis and pulmonary embolism: 2.0 - 3.0 For acute myocardial infarction with aspirin therapy: 2.0 - 3.0 For acute myocardial infarction without aspirin therapy: 3.0 - 4.0 For patients with mechanical prosthetic heart valves: 2.5 - 3.5 Complete Blood Count Auto Di ff Reviewed date:10/21/2024 11:21:49 AM Interpretation: Performing Lab:[facility], [address] [place] [phone] Notes/Report: White Blood Count 10.5 4.8-10.8 X10*3/uL Red Blood Count 4.96 4.60-5.80 X10*6/uL Hemoglobin 15.1 14.0-18.0 g/dl Hematocrit 44.3 42.0-52.0 % Mean Corpuscular Volume 89.3 80.0-98.0 fL Mean Corpuscular Hemoglobin 30.4 27.0-33.0 pg Mean Corpuscular HGB Conc 34.1 31.0-36.0 g/dl Red Cell Distribution Width 15.0 11.0-16.0 % Platelet Count 191 160-400 X10*3/uL Mean Platelet Volume 12.0 9.4-12.4 fL Neutrophils Percent Auto 85.4 45-73 % Imm Gran Pct Auto 1.0 0.0-0.4 % Lymphocytes Percent Auto 6.9 20-40 % Monocytes Percent Auto 5.9 2-11 % Eosinophils Percent Auto 0.2 0-4 % Basophils Percent Auto 0.6 0-2 % NRBC Pct Auto 0.0 0.0-0.2 /100WBC Neutrophils Absolute Auto 9.0 2.0-8.3 x10*3/u L Imm Gran Abs Auto 0.11 0.00-0.03 X10*3/uL Lymphocytes Absolute Auto 0.7 1.2-4.9 X10*3/u L Monocytes Absolute Auto 0.6 0.1-1.2 X10*3/uL Eosinophils Absolute Auto 0.0 0.0-0.4 X10*3/u L Basophils Absolute Auto 0.1 0.0-0.2 X10*3/uL NRBC Abs Auto 0.000 0.0-0.012 X10*3/uL Liver Panel (Not yet reviewe d by provider) Interpretation: Performing Lab:[facility], [address] [place] [phone] Notes/Report: Bilirubin Total 0.6 0.0-1.0 mg/dL Bilirubin Direct 0.2 0.0-0.5 mg/dL Aspartate Amino Transferase 36 5-37 U/L Alanine Aminotransferase 45 0-40 U/L Total Protein 7.4 6.5-8.0 g/dL Albumin Level 4.4 3.5-5.0 g/dL Alkaline Phosphatase 68 39-117 U/L Hep C Viral Load Reviewed date:10/24/2024 02:17:03 PM Interpretation: Performing Lab:[facility], [address] [facility] [address] [place] [address] Notes/Report: HepC Viral Load <15 NOT DETECTED NOT DETECTED IU/mL HCV Log PCR <1.18 NOT DETECTED NOT DETECTED Log IU/mL For additional information, please refer to http://education.[employer]/faq/ MCV30b8 (This link is being provided for informational/ educational purposes only.) THIS TEST WAS PERFORMED AT: [facility] [address] [place] [phone] DENNISE CAMP MD Reason For Referral No Information Medications Medication [...] Problem Status W/U Status Risk Notes Problem 593752190 Encounter for screening for malignant neoplasm of colon (Z12.11) Active confirmed Problem 235819231 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 Problem Fatty liver (648115114) Fatty liver (K76.0) Active confirmed Problem 564146579 Gastroesophageal reflux disease, esophagitis presence not specified (K21.9) Active confirmed Problem Hiatal hernia (28086718) Hiatal hernia (K44.9) Active confirmed Problem Gastric lymphoma (363939380) 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 Problem Gastritis (6885945) Gastritis (K29.70) Active confirmed Problem History of malignant neoplasm of stomach (643033080) History of gastric cancer (Z85.028) Active confirmed Problem 44662964 Dysphagia, unspecified type (R13.10) Active confirmed Problem Cordero esophagus (973653770) 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 Problem History of hepatitis C (99655413333585) History of hepatitis C (Z86.19) Active confirmed Problem Elevated liver enzymes level (471526662) Elevated liver function tests (R94.5) Active confirmed Problem Gastric ulcer (352269962) Gastric ulcer (K25.9) Active confirmed Problem Diverticulosis of colon (232636356) Diverticulosis of colon (K57.30) Active confirmed Vital Signs Blood pressure diastolic 11 mm Hg 10/19/2024 Height 69 in 10/19/2024 Blood pressure systolic 111 mm Hg 10/19/2024 Weight 190 lbs 10/19/2024 BMI 28.06 kg/m2 10/19/2024 Encounters Encounter Location Date Provider Diagnosis [facility] [address] [place] [address] 10/19/2024 Joshua Yuen History of hepatitis C Z86.19 ; Elevated liver function tests R94.5 and Fatty liver K76.0 [facility] [address] [place] [address] 06/02/2024 Joshua Yuen [facility] [address] [place] [address] 10/06/2024 Joshua Yuen Assessments Encounter Date Diagnosis [...] Test Name Order Date LIVER PROFILE 10/19/2024 LIVER PROFILE 11/29/2021 CBC w DIFF 10/19/2024 ALPHA-FETOPROTEIN,TUMOR MARKER 6 ALPHA-FETOPROTEIN,TUMOR MARKER 5 HEPATITIS C VIRAL LOAD 10/19/2024 US ABDOMEN COMP WITH ELASTOGRAPHY 2021 Liver Panel 10/21/2024 Liver Fibrosis Pnl 10/19/2024 US abdomen comp w elastography 5 Future Test Test Name Order Date UPPER GI ENDOSCOPY BALLOOON DILATION OF ESOPH 01/11/2016 UPPER GI ENDOSCOPY 04/29/2019 UPPER GI ENDOSCOPY 11/29/2021 COLONOSCOPY 11/29/2021 UPPER GI ENDOSCOPY 06/27/2022 Next Appt Details Provider Name:Joshua Rossi Yuen , 10/25/2025 02:10:00 PM, [address], [address], [place], [address], Insurance Providers Payer Name Payer Address Payer Phone Subscriber Number Group Number Insured Name Patient Relationship to Insured Coverage Start Date Coverage End Date MEDICARE OF [place] [address] [place], [place] [address] [id number] MULUGETA DOVE Self - patient is the insured 8 [employer] ATTN CLAIMS [address] [place] [address] [phone] [id number] MUULGETA DOVE Self - patient is the insured [...] 06/2012 with finding of a HH, esophagitis, Codrero's(neg. dysplasia),small gastric ulcer,gastric biopsies neg. for H.pylori. [...] IV Rituximab with Dr. Arellano from rheumatology [facility] with hospitalization i n April 2024 with resultant issues with intermittent hypertension, palpitations, and worsening fatigue Surgical History Surgery Date(Month/Year) Lipoma on back Rotator cuff repair left 11/2020 Left knee CCY on 10/14/[address] Pate for RUQ pain and abnormal HIDA with decreased ejection fraction Wrist surgery Prostate surgery Hernia surgery-right inguinal
--- OUTSIDE RECORDS SUMMARY | 2024-10-26 14:15 | XMS_ITS ---
Author Organization [facility] Address [address] [place] [address] Care Team Providers Care Ranger Aide Name Role Phone SHANITA RODRIGUEZ Primary Care Provider Joshua Downey Unavailable [phone] Allergies Allergen (clinical drug ingredient) Drug/Non Drug Allergy documented on EMR Reaction Allergy Type Onset Date Status morphine Morphine Sulfate Unknown Drug Allergy Active Substance with hydrogen/potassium adenosine triphosphatase enzyme system inhibitor mechanism of action (substance) PPI's (uncoded) Unknown Allergy Active Results Component Value Reference Range Notes Prothrombin Time INR Reviewed date:10/21/2024 11:22:25 AM Interpretation: Performing Lab:[facility], [address] [place] [phone] Notes/Report: Prothrombin Time 12.5 10.9-12.4 SEC INTERNATIONAL [...] mechanical prosthetic heart valves: 2.5 - 3.5 REASON FOR VISIT elevated liver funtion tests [...] Risk Notes Problem Elevated liver enzymes level (696313753) Elevated liver function tests (R94.5) Active confirmed Problem Fatty liver (463349371) Fatty liver (K76.0) Active confirmed Vital Signs Blood pressure systolic 111 mm Hg 10/20/19 25 Blood pressure diastolic 11 mm Hg 025 Height 69 in 10/19/2024 Weight 190 lbs 10/19/2024 BMI 28.06 kg/m2 10/19/2024 Encounters Encounter Location Date Provider Diagnosis [facility] [address] [place] [address] 10/19/2024 Joshua Yuen History of hepatitis C [...] CBC w DIFF 10/19/2024 ALPHA-FETOPROTEIN,TUMOR MARKER 5 HEPATITIS C VIRAL LOAD 10/19/2024 Liver Fibrosis Pnl 10/19/2024 US abdomen comp w elastography 5 Next Appt Details Follow Up: 1 Year, Reason: Provider Name:Joshua Yuen , 10/25/2025 02:10:00 PM, [address] [place] [address], [address], [place], [address], Progress Notes * MULUGETA DOVEDOB:1955 ( 69 yo M)Acc No.[id number]:10/19/2024 Progress Notes Patient:?MULUGETA DOVE Provider:?Joshua Yuen MD :1955???Age:69 Y???Sex:Male Ham e:10/19/2024 Address:[address] [place] [address] [place] Pcp:SHANITA RODRIGUEZ Subjective: * Chief Complaints: * [...] illness--lasts for up to 3 days, Denies NH,DM,CVA,Lung disease,renal disease, EGD in 06/2012 with finding [...] [facility] with [...] Single. 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 Plan: * Treatment: ? Value Reference Range ?Prothrombin Time 12.5 H 10.9-1 2.4 - SEC * ?INTERNATIONAL NORM RATIO 1.1 0.9-1.1 - ?Imaging: US abdomen comp w elastography* sched for 11/19/24 at 9:30 am [facility] Ultrasound Dept [address] [place], [place] [address]fasting 8 hrs prior * 2.?Elevated liver function tests?LAB: LIVER PROFILE ?LAB: CBC w DIFF ?LAB: ALPHA-FETOPROTEIN,TUMOR MARKER ?LAB: HEPATITIS C VIRAL LOAD ?LAB: Liver Fibrosis Pnl ?LAB: Prothrombin Time INR (Collection Date & Time - 10/21/2024 09:20 AM)* ? Value Reference Range ?Prothrombin Time 12.5 H 10.9-1 2.4 - SEC * ?INTERNATIONAL NORM RATIO 1.1 0.9-1.1 - ?Imaging: US abdomen comp w elastography* sched for 11/19/24 at 9:30 am [facility] Ultrasound Dept [facility] floorfasting 8 hrs prior * 3.?Fatty liver?LAB: LIVER PROFILE ?LAB: CBC w DIFF ?LAB: ALPHA-FETOPROTEIN,TUMOR MARKER ?LAB: HEPATITIS C VIRAL LOAD ?LAB: Liver Fibrosis Pnl ?LAB: Prothrombin Time INR (Collection Date & Time - 10/21/2024 09:20 AM)* ? Value Reference Range ?Prothrombin Time 12.5 H 10.9-1 2.4 - SEC * ?INTERNATIONAL NORM RATIO 1.1 0.9-1.1 - ?Imaging: US abdomen comp w elastography* sched for 11/19/24 at 9:30 am [facility] Ultrasound Dept 2nd floorfasting 8 hrs prior [...] Yuen MD Date:? 025 Generated for Wilma mathew/Ivania/eTransmitting on:?10/26/2024 02:15 PM EDT
--- OUTSIDE RECORDS SUMMARY | 2024-10-26 14:15 | XMS_ITS ---
Author Organization [facility] Address [address] [place] [address] Care Team Providers Care Telephonic Nurse Case Manager Name Role Phone SHANITA RODRIGUEZ Primary Care Provider Joshua Downey [phone] REASON FOR VISIT cancelled by provider Encounters Encounter Location Date Provider Diagnosis [facility] [address] [place] [address] 10/06/2024 Joshua Yuen Plan Of Treatment Next Appt Details Provider Name:Joshua Yuen , 10/25/2025 02:10:00 PM, [address], [address], [place], [address], Progress Notes * VALERIA DOVE:1955 ( 69 yo M)Acc No.[id number]:10/06/2024 Patient:?MULUGETA DOVE :1955???Age:69 Y???Sex:Male Address:[facility] [place] [address] * true * Date:? Generated for Printi ng/Faxing/eTransmitting on:?10/26/2024 02:14 PM EDT
--- OUTSIDE RECORDS SUMMARY | 2024-10-26 14:15 | XMS_ITS | Clinical Summary ---
Author Organization [address] Address [address] [place] [address] Phone Care Team Providers Care Commercial Hvac Service Technician Name Role Phone Unavailable Primary Care Provider [...] age to complete this topic Insurance MEDICARE [facility] [place] [facility]
--- OUTSIDE RECORDS SUMMARY | 2024-10-26 14:15 | XMS_ITS ---
Author Organization [facility] Address [address] [place] [address] Care Team Providers Care Route Delivery Service Driver Name Role Phone SHANITA RODRIGUEZ Primary Care Provider Joshua Downey [phone] REASON FOR VISIT Patient presents today for a f/u from gastric ulcer Encounters Encounter Location Date Provider Diagnosis [facility] [address] [facility] [address] [place] [address] 10/05/2024 Joshua Yuen Plan Of Treatment Next Appt Details Provider Name:Joshua Yuen , 10/25/2025 02:10:00 PM, [address], [address], [place], [address], Progress Notes * MULUGETA DOVEDOB:1955 ( 69 yo M)Acc No.[id number]:10/05/2024 Progress Notes Patient:?MULUGETA DOVE Provider:?Joshua Yuen MD :1955???Age:69 Y???Sex:Male Ham e:10/05/2024 Address:[facility] [id number] Pcp:SHANITA RODRIGUEZ Subjective: * Chief Complaints: * [...] MD Date:? 025 Generated for Wilma mathew/Ivania/Liss on:?10/26/2024 02:14 PM EDT
== END 2024-10-26 12:24 | disposition home or self-care (01) ==
LOC: HO.HKA 11:51
PROVIDERS: PCP Nurse Practitioner Family; Referring Provider Nurse Practitioner Family; Visit Provider Internal Medicine Hypertension Specialist
DX: I10 Essential (primary) hypertension (principal); U09.9 Post COVID-19 condition, unspecified
CPT/HCPCS: 99204

== ENCOUNTER 2024-10-26 11:50 | Outpatient (REF) | payer MEDICARE, SELFPAY | END 2024-10-26 11:51 | disposition home or self-care (01) | LOC: HO.LAB 11:50 | PROVIDERS: PCP Nurse Practitioner Family; Referring Provider Nurse Practitioner Family; Visit Provider Internal Medicine Hypertension Specialist | DX: I10 Essential (primary) hypertension (principal); J98.9 Respiratory disorder, unspecified; U09.9 Post COVID-19 condition, unspecified; Z79.899 Other long term (current) drug therapy | CPT/HCPCS: 99202 ==

== ENCOUNTER 2024-10-27 06:03 | Outpatient (REF) | payer MEDICARE, SELFPAY ==
[2024-11-02 18:02] LABS: Aldosterone/Renin Ratio 1.5 Ratio (0.9-28.9); Plasma Renin Activity 23.25 ng/mL/h (0.25-5.82)
[2024-11-04 19:04] LABS: Catecholamine Frac, Total 404 pg/mL
== END 2024-10-27 06:04 | disposition home or self-care (01) ==
LOC: HO.LAB 06:03
PROVIDERS: PCP Nurse Practitioner Family; Visit Provider Internal Medicine Hypertension Specialist
DX: I10 Essential (primary) hypertension (principal)
CPT/HCPCS: 36415; 82088; 82384; 84244

== ENCOUNTER → 2024-11-01 08:27 | Outpatient (REF) | payer MEDICARE, SELFPAY | LOC: HO.CARD 08:27 | PROVIDERS: PCP Nurse Practitioner Family; Visit Provider Nurse Practitioner Family | DX: R00.2 Palpitations (principal) | CPT/HCPCS: 93242 ==

== ENCOUNTER → 2024-11-01 08:31 | Outpatient (BNV) | payer MEDICARE, SELFPAY | PROVIDERS: PCP Nurse Practitioner Family; Visit Provider Internal Medicine | DX: I47.10 Supraventricular tachycardia, unspecified (principal) | CPT/HCPCS: 93244 ==

== ENCOUNTER 2024-11-10 08:27 | Outpatient (REF) | payer MEDICARE, SELFPAY ==
--- NOTE | ~2024-11-10 | XR_ITS ---
EXAMINATION: XR CHEST CLINICAL INFORMATION: J84.9 - Interstitial pulmonary disease, unspecified COMPARISON: August 09, 2024 TECHNIQUE: 2 views of the chest were obtained. FINDINGS: Pulmonary reticular nodular pattern. No consolidation, pleural effusion or pneumothorax. Cardiomediastinal silhouette size is normal. Calcified plaque aortic arch. Multilevel thoracolumbar spondylosis with preservation of the intervertebral disc height. Vascular clips in the right upper quadrant abdomen. Degenerative changes in the right acromioclavicular joint. XR/XR chest 2V IMPRESSION: Chronic interstitial lung disease. Atherosclerosis disease. Consider DISH, thoracic spine Electronically signed by: Pierce Cardenas MD 11/10/2024 02:07 PM EDT RP
--- OUTSIDE RECORDS SUMMARY | 2024-11-10 08:45 | XMS_ITS | Clinical Summary ---
Author Organization [address] Address [address] [place] [address] Phone Care Team Providers Care Electronic Sales And Service Technician Name Role Phone Unavailable Primary [...] Influencers of Health Screening 06/23/2024 RSV Immunization Adult Patie nts (1 - 1-dose 75+ series) 2028 HIB [...] to complete this topic Insurance MEDICARE MED [facility]
--- OUTSIDE RECORDS SUMMARY | 2024-11-10 08:45 | XMS_ITS ---
Author Organization [facility] Address [address] [place] [address] Care Team Providers Care Photovoltaic Power Systems Engineer Name Role Phone SHANITA RODRIGUEZ Primary Care Provider Joshua Downey [phone] REASON FOR VISIT cancelled by provider Encounters Encounter Location Date Provider Diagnosis [facility] [address] [place] [address] 10/06/2024 Joshua Yuen Plan Of Treatment Next Appt Details Provider Name:Joshua Yuen , 10/25/2025 02:10:00 PM, [address], [address], [place], [address], Progress Notes * VALERIA DOVE:1955 ( 69 yo M)Acc No.[id number]:10/06/2024 Patient:?MULUGETA DOVE :1955???Age:69 Y???Sex:Male Address:[facility] [place] [address] * true * Date:? Generated for Printi ng/Famassimog/eTransmitting on:?11/10/2024 08:45 AM EDT
--- OUTSIDE RECORDS SUMMARY | 2024-11-10 08:45 | XMS_ITS ---
Author Organization [facility] Address [address] [place] [address] Care Team Providers Care Melt Helper Name Role Phone SHANITA RODRIGUEZ Primary Care Provider Joshua Downey [phone] REASON FOR VISIT Patient presents today for a f/u from gastric ulcer Encounters Encounter Location Date Provider Diagnosis [facility] [address] [place] [address] 10/05/2024 Joshua Yuen Plan Of Treatment Next Appt Details Provider Name:Joshua Yuen , 10/25/2025 02:10:00 PM, [address], [address], [place], [address], Progress Notes * MULUGETA DOVEDOB:1955 ( 69 yo M)Acc No.[id number]:10/05/2024 Progress Notes Patient:?MULUGETA DOVE Provider:?Joshua Yuen MD :1955???Age:69 Y???Sex:Male Ham e:10/05/2024 Address:[facility] [id number] Pcp:SHANITA RODRIGUEZ Subjective: * Chief Complaints: * [...] MD Date:? 025 Generated for Wilma mathew/Ivania/Liss on:?11/10/2024 08:45 AM EDT
--- OUTSIDE RECORDS SUMMARY | 2024-11-10 08:46 | XMS_ITS | Patient Health Record ---
Author Organization [facility] Address [address] [place] [address] Care Team Providers Care Supervisor Steno Pool Name Role Phone SHANITA RODRIGUEZ Primary Care Provider Joshua Downey [phone] Allergies Allergen (clinical drug ingredient) Drug/Non Drug Allergy documented on EMR Reaction Allergy Type Onset Date Status morphine Morphine Sulfate Unknown Drug Allergy Active Substance with hydrogen/potassium adenosine triphosphatase enzyme system inhibitor mechanism of action (substance) PPI's (uncoded) Unknown Allergy Active Results Component Value Reference Range Notes Prothrombin Time INR Reviewed date:10/21/2024 11:22:25 AM Interpretation: Performing Lab:[address] [address] Notes/Report: Prothrombin Time 12.5 10.9-12.4 SEC INTERNATIONAL [...] mechanical prosthetic heart valves: 2.5 - 3.5 Liver Fibrosis Pnl Reviewed date:11/06/2024 09:52:48 PM Interpretation: Performing Lab:[facility], [address] [place] [phone] Notes/Report: Liver Fibrosis Score 0.49 Liver Fibrosis Stage F2 Liver Fibrosis Interpretation SEE NOTE moderate fibrosis Fibro Test Score (f) Metavir Score f>=0 and f<=0.21 : F0 (no fibrosis) f>0.21 and f<=0.27 : F0-F1 (no fibrosis) f>0.27 and f<=0.31 : F1 (minimal fibrosis) f>0.31 and f<=0.48 : F1-F2 (minimal fibrosis) f>0.48 and f<=0.58 : F2 (moderate fibrosis) f>0.58 and f<=0.72 : F3 (advanced fibrosis) f>0.72 and f<=0.74 : F3-F4 (advanced fibrosis) f>0.74 and f<=1.00 : F4 (severe fibrosis) Nec Inflam Act Score 0.22 Nec Inflam Act Grade A0-A1 Nec Inflam Act Interpretation SEE NOTE no activity ActiTest Score (a) Metavir Score a>=0 and a<=0.17 : A0 (no activity) a>0.17 and a<=0.29 : A0-A1 (no activity) a>0.29 and a<=0.36 : A1 (minimal activity) a>0.36 and a<=0.52 : A1-A2 (minimal activity) a>0.52 and a<=0.60 : A2 (significant activity) a>0.60 and a<=0.62 : A2-A3 (significant activity) a>0.62 and a<=1.00 : A3 (severe activity) XEF-Wxots-9-Macroglobulin 325 106-279 mg/dL FIB-Haptoglobin 112 43-212 mg/dL FIB-Apolipoprotein A1 158 94-176 mg/dL FIB-Total Bilirubin 0.5 0.2-1.2 mg/dL FIB-GGT 16 3-70 U/L FIB-ALT 34 9-46 U/L Reference ID [id number] Footnote SEE NOTE The reliability of results is dependent on compliance with the preanalytical and analytical conditions recommended by Yibailinredictive. The tests have to be deferred for: acute hemolysis, acute hepatitis, acute inflammation, extra hepatic cholestasis. The advice of a specialist should be sought for interpretation in chronic hemolysis and Gilbert's syndrome. The test interpretation is not validated in liver transplant patients. Isolated extreme values of one of the components should lead to caution in interpreting the results. In case of discordance between a biopsy result and a test, it is recommended to seek the advice of a specialist. The causes of these discordances could be due to a flaw of the test or to a flaw in the biopsy: i.e. a liver biopsy has a 33% variability rate for one fibrosis stage. FibroTest is interpretable for chronic hepatitis B and C, alcoholic and non alcoholic steatosis. ActiTest is interpretable for chronic hepatitis B and C. The performance characteristics have been determined by [facility]. It has not been cleared or approved by the U.S. Food and Drug Administration. Performance characteristics refer to the analytical performance of the test. Clover, the associated logo, [employer] and all associated [employer] patel are the registered trademarks of [employer]. All third green party patel - (R) and (TM) - are the property of their respective owners. (C) 5828-7232 [employer]. All rights reserved. THIS TEST WAS PERFORMED AT: [facility] [employer] [facility] [address] [place] [address] BITA ROMAN MD,PHD,WILFREDO Complete Blood Count Auto Di ff Reviewed date:10/21/2024 11:21:49 AM Interpretation: Performing Lab:[facility], [address] [place] [phone] Notes/Report: White Blood Count 10.5 4.8-10.8 X10*3/uL [...] Abs Auto 0.000 0.0-0.012 X10*3/uL Liver Panel Reviewed date:11/06/2024 09:52:32 PM Interpretation: Performing Lab:[address] [address] Notes/Report: Bilirubin Total 0.6 0.0-1.0 mg/dL Bilirubin Direct 0.2 0.0-0.5 mg/dL Aspartate Amino Transferase 36 5-37 U/L Alanine Aminotransferase 45 0-40 U/L Total Protein 7.4 6.5-8.0 g/dL Albumin Level 4.4 3.5-5.0 g/dL Alkaline Phosphatase 68 39-117 U/L Alpha Fetoprotein Reviewed date:11/06/2024 09:52:14 PM Interpretation: Performing Lab:[address] [address] Notes/Report: Alpha Fetoprotein 2.7 <6.1 ng/mL This test was performed using the Trena Darlington chemiluminescent method. Values obtained from different assay methods cannot be used interchangeably. AFP levels, regardless of value, should not be interpreted as absolute evidence of the presence or absence of disease. THIS TEST WAS PERFORMED AT: [employer] [employer] [address] [place] [phone] DENNISE CAMP MD Hep C Viral Load Reviewed date:10/24/2024 02:17:03 PM Interpretation: Performing Lab:[address] [address] Notes/Report: HepC Viral Load <15 NOT DETECTED NOT DETECTED IU/mL HCV Log PCR <1.18 NOT DETECTED NOT DETECTED Log IU/mL For additional information, please refer to http://Lever.Getaround/faq/FAQ22v 1 (This link is being provided for informational/ educational purposes only.) THIS TEST WAS PERFORMED AT: [employer] [address] [place] [phone] DENNISE CAMP MD Reason For Referral No [...] Problem Status W/U Status Risk Notes Problem 857009888 Encounter for screening for malignant neoplasm of colon (Z12.11) Active confirmed Problem 233605587 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 Problem Fatty liver (753376091) Fatty liver (K76.0) Active confirmed Problem 875581344 Gastroesophageal reflux disease, esophagitis presence not specified (K21.9) Active confirmed Problem Hiatal hernia (25169328) Hiatal hernia (K44.9) Active confirmed Problem 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 Problem Gastritis (6851067) Gastritis (K29.70) Active confirmed Problem History of malignant neoplasm of stomach (389664106) History of gastric cancer (Z85.028) Active confirmed Problem 33712615 Dysphagia, unspecified type (R13.10) Active confirmed Problem 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 Problem History of hepatitis C (90668510296388) History of hepatitis C (Z86.19) Active confirmed Problem Elevated liver enzymes level (283770822) Elevated liver function tests (R94.5) Active confirmed Problem Gastric ulcer (769245343) Gastric ulcer (K25.9) Active confirmed Problem Diverticulosis of colon (785892625) Diverticulosis of colon (K57.30) Active confirmed Vital Signs Blood pressure diastolic 11 mm Hg 10/19/2024 Height 69 in 10/19/2024 Blood pressure systolic 111 mm Hg 10/19/2024 Weight 190 lbs 10/19/2024 BMI 28.06 kg/m2 10/19/2024 Encounters Encounter Location Date Provider Diagnosis [facility] [address] [place] [address] 10/19/2024 Joshua Yuen History of hepatitis C Z86.19 ; Elevated liver function tests R94.5 and Fatty liver K76.0 [facility] [address] [place] [address] 06/02/2024 Joshua Yuen [facility] [address] [place] [address] 10/06/2024 Joshua Yuen Assessments Encounter Date Diagnosis [...] 10/19/2024 US ABDOMEN COMP WITH ELASTOGRAPHY 2021 US abdomen comp w elastography 5 Future Test Test Name Order Date UPPER GI ENDOSCOPY BALLOOON DILATION OF ESOPH 01/11/2016 UPPER GI ENDOSCOPY 04/29/2019 UPPER GI ENDOSCOPY 11/29/2021 COLONOSCOPY 11/29/2021 UPPER GI ENDOSCOPY 06/27/2022 Next Appt Details Provider Name:Joshua Yuen , 10/25/2025 02:10:00 PM, [address], [address], [place], [address], Insurance Providers Payer Name Payer Address Payer Phone Subscriber Number Group Number Insured Name Patient Relationship to Insured Coverage Start Date Coverage End Date MEDICARE OF [place] [address] [place] [id number] [id number] MULUGETA DOVE Self - patient is the insured 8 [employer] ATTN CLAIMS [address] [place] [address] [id number] MULUGETA DOVE Self - patient is the [...] illness--lasts for up to 3 days Denies HI,DM,CVA,Lung disease,renal dise ase EGD in 06/2012 with [...] IV Rituximab with Dr. Arellano from rheumatology [facility] with hospitalization i n April 2024 with resultant issues with intermittent hypertension, palpitations, and worsening fatigue Surgical History Surgery Date(Month/Year) Lipoma on back Rotator cuff repair left 11/2020 Left knee CCY on 10/14/[address] Pate for RUQ pain and abnormal HIDA with decreased ejection fraction Wrist surgery Prostate surgery Hernia surgery-right inguinal
--- OUTSIDE RECORDS SUMMARY | 2024-11-10 08:46 | XMS_ITS ---
Author Organization [facility] Address [address] [place] [address] Care Team Providers Care Rig Manager Name Role Phone SHANITA RODRIGUEZ Primary Care Provider Joshua Downey [phone] Allergies Allergen (clinical drug ingredient) Drug/Non Drug Allergy documented on EMR Reaction Allergy Type Onset Date Status morphine Morphine Sulfate Unknown Drug Allergy Active Substance with hydrogen/potassium adenosine triphosphatase enzyme system inhibitor mechanism of action (substance) PPI's (uncoded) Unknown Allergy Active Results Component Value Reference Range Notes Prothrombin Time INR Reviewed date:10/21/2024 11:22:25 AM Interpretation: Performing Lab:[address] [address] Notes/Report: Prothrombin Time 12.5 10.9-12.4 SEC INTERNATIONAL [...] Pnl Reviewed date:11/06/2024 09:52:48 PM Interpretation: Performing Lab:[facility], [address] [place] [address] Notes/Report: Liver Fibrosis Score 0.49 Liver Fibrosis [...] a>0.62 and a<=1.00 : A3 (severe activity) BKE-Tlfoa-7-Macroglobulin 325 106-279 mg/dL FIB-Haptoglobin 112 43-212 mg/dL FIB-Apolipoprotein A1 158 94-176 mg/dL FIB-Total Bilirubin 0.5 0.2-1.2 mg/dL FIB-GGT 16 3-70 U/L FIB-ALT 34 9-46 U/L Reference ID [id number] Footnote SEE NOTE The reliability of results is dependent on compliance with the preanalytical and analytical conditions recommended by BioPredictive. The tests have to be deferred for: [...] The performance characteristics have been determined by [facility]. It has not been cleared or approved by the U.S. Food and Drug Administration. Performance characteristics refer to the analytical performance of the test. Mirimus, the associated logo, [employer] and all associated [employer] patel are the registered trademarks of [employer]. All third democrat patel - (R) and (TM) - are the property of their respective owners. (C) 1544-4776 [employer]. All rights reserved. THIS TEST WAS PERFORMED AT: [facility] [address] [place] [address] BITA ROMAN MD,PHD,WILFREDO REASON FOR VISIT elevated liver funtion tests [...] Risk Notes Problem Elevated liver enzymes level (577352959) Elevated liver function tests (R94.5) Active confirmed Problem Fatty liver (582003298) Fatty liver (K76.0) Active confirmed Vital Signs Blood pressure systolic 111 mm Hg 10/20/19 25 Blood pressure diastolic 11 mm Hg 025 Height 69 in 10/19/2024 Weight 190 lbs 10/19/2024 BMI 28.06 kg/m2 10/19/2024 Encounters Encounter Location Date Provider Diagnosis [facility] [address] [place] [address] 10/19/2024 Joshua Yuen History of hepatitis C [...] 5 HEPATITIS C VIRAL LOAD 10/19/2024 US abdomen comp w elastography 5 Next Appt Details Follow Up: 1 Year, Reason: Provider Name:Joshua Yuen , 10/25/2025 02:10:00 PM, [address] [facility], [address], [place], [address], Progress Notes * MULUGETA DOVEDOB:1955 ( 69 yo M)Acc No.[id number]:10/19/2024 Progress Notes Patient:?MULUGETA DOVE Provider:?Joshua Yuen MD :1955???Age:69 Y???Sex:Male Ham e:10/19/2024 Address:[address] [place], [place] [id number] Pcp:SHANITA RODRIGUEZ Subjective: * Chief Complaints: * ???Elevated liver funtion te sts * HPI: ???incontinence:? I saw Mulugeta in [...] evidence of cirrhosis, ascites, nor splenomegaly. * ROS:?General/Constitutional:?Change in appetite?denies.?Chills?denies.?Fatigue?Intermittent fatigue.?Ophthalmologic:?Patient denies? Negative..?ENT:?Patient denies?Negative..?Respiratory:?Patient denies?No coughing/hemoptysis..?Cardiovascular:?Patient denies? No chest pain/orthopnea..?Gastrointestinal:?Comments?See HPI for details.?Genitourinary:?Patient denies? No dysuria/hematuria..?Musculoskeletal:?Patient denies? No specific arthralgias/myalgias..?Skin:?Patient denies?No rash/pruritus..?Neurologic:?Patient denies? No headaches/seizures..?Psychiatric:?Admits?Anxiety.? * Medical History:? * Surgical History:?Hernia holley jericho-right inguinal Prostate surgery Wrist surgery CCY on 10/14/[address] Pate for RUQ pain and abnormal HIDA with decreased ejection fraction Left knee Rotator cuff repair left 1Lipoma on back * Hospitalization/Major Diagno stic Procedure:?No Hospitalization History. * Family History:?Father: dece ased 79 yrs, Father - esophageal cancer and prostate cancer.?Mother: alive 93 yrs.? Father had esophageal cancer. There is no family history of colorectal cancer. * Social History:?Tobacco Use:?Tobacco Use/Smoking?Are you a: nonsmoker.?Drugs/Alcohol:?Alcohol Screen?Points: 0, Interpretation: Negative.?Miscellaneous:?Marital status: Single. Occupation: The patient works for the [employer]--retired October 11, 2020. 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 ???He does not smoke nor use any significant amounts of alcohol. * Medications:?TakingpredniSON E 10 MG Tablet 10 mg in am 5 mg in pm Oral 10 in am 5 in pm Losartan Potassium 25 MG Tablet TAKE 1 TABLET BY MOUTH TWICE A DAY FOR 30 DAYS Oral Taking predniSONE 10 MG Tablet 10 mg in am 5 mg in pm Oral 10 in am 5 in pm Taking Losartan Potassium 25 MG Tablet TAKE 1 TABLET BY MOUTH TWICE A DAY FOR 30 DAYS Oral DiscontinuedPrilosec 20 MG Capsule Delayed Release QOD Orally Discontinued Prilosec 20 MG Capsule Delayed Release QOD Orally * Allergies:?Morphine SulfateP PI'syes[Allergies Verified] Objective: * Vitals:?Wt:190lbs, Ht: 69 in , BMI:28.06Index, BP:111/11mm Hg, Wt-k.18. * Examination: ???General Examination: ?GENERAL APPEARANCE:?pleasant, well nourished, well developed, in no acute distress.?EYES:?sclera non-icteric.?ORAL CAVITY:?mucosa moist.?NECK/THYROID:?no cervical lymphadenopathy, neck supple.?SKIN:?nonjaundiced, no spider angiomata..?HEART:?S1, S2 normal.?LUNGS:?clear to auscultation bilaterally.?ABDOMEN:?normal bowel sounds, no guarding or rigidity, no hepatosplenomegaly, no masses palpable, soft, nontender, nondistended..?EXTREMITIES:?no edema.?NEUROLOGIC:?alert and oriented.? Assessment: * Assessment: 1.?Elevated liver function t ests - R94.5 (Primary)???2.?History of hepatitis C - Z86.19???3.?Fatty liver - K76.0??? Overall, Mulugeta does not [...] * ?INTERNATIONAL NORM RATIO 1.1 0.9-1.1 - ?LAB: Liver Fibrosis Pnl (Collection Date & Time - 10/21/2024 09:20 AM)* ? Value Reference Range ?Liver Fibrosis Score 0.49 - * ?Liver Fibrosis Stage F2 - * ?Liver Fibrosis Interpretation SEE NOTE - * ?Nec Inflam Act Score 0.22 - * ?Nec Inflam Act Grade A0-A1 - * ?Nec Inflam Act Interpretation SEE NOTE - * ?COA-Rmsoe-8-Macroglobulin 325 A 106-279 - mg/dL * ?FIB-Haptoglobin 112 43-212 - mg/dL * ?FIB-Apolipoprotein A1 158 9 4-176 - mg/dL * ?FIB-Total Bilirubin 0.5 0.2 -1.2 - mg/dL * ?FIB-GGT 16 3-70 - U/L * ?FIB-ALT 34 9-46 - U/L * ?Reference ID [id number] - * ?Footnote SEE NOTE - ?Imaging: US abdomen comp w elastography* sched for 11/19/24 at 9:30 am [facility] [place] 2nd floorfasting 8 hrs prior * 2.?History of hepatitis C?LAB: LIVER PROFILE ?LAB: CBC w DIFF ?LAB: ALPHA-FETOPROTEIN,TUMOR MARKER ?LAB: HEPATITIS C VIRAL LOAD ?LAB: Prothrombin Time INR (Collection Date & Time - 10/21/2024 09:20 AM)* ? Value Reference Range ?Prothrombin Time 12.5 H 10.9-1 2.4 - SEC * ?INTERNATIONAL NORM RATIO 1.1 0.9-1.1 - ?LAB: Liver Fibrosis Pnl (Collection Date & Time - 10/21/2024 09:20 AM)* ? Value Reference Range ?Liver Fibrosis Score 0.49 - * ?Liver Fibrosis Stage F2 - * ?Liver Fibrosis Interpretation SEE NOTE - * ?Nec Inflam Act Score 0.22 - * ?Nec Inflam Act Grade A0-A1 - * ?Nec Inflam Act Interpretation SEE NOTE - * ?LHQ-Wwutg-4-Macroglobulin 325 A 106-279 - mg/dL * ?FIB-Haptoglobin 112 43-212 - mg/dL * ?FIB-Apolipoprotein A1 158 9 4-176 - mg/dL * ?FIB-Total Bilirubin 0.5 0.2 -1.2 - mg/dL * ?FIB-GGT 16 3-70 - U/L * ?FIB-ALT 34 9-46 - U/L * ?Reference ID [id number] - * ?Footnote SEE NOTE - ?Imaging: US abdomen comp w elastography* sched for 11/19/24 at 9:30 am [facility] [place] 2nd floorfasting 8 hrs prior * 3.?Fatty liver?LAB: LIVER PROFILE ?LAB: CBC w DIFF ?LAB: ALPHA-FETOPROTEIN,TUMOR MARKER ?LAB: HEPATITIS C VIRAL LOAD ?LAB: Prothrombin Time INR (Collection Date & Time - 10/21/2024 09:20 AM)* ? Value Reference Range ?Prothrombin Time 12.5 H 10.9-1 2.4 - SEC * ?INTERNATIONAL NORM RATIO 1.1 0.9-1.1 - ?LAB: Liver Fibrosis Pnl (Collection Date & Time - 10/21/2024 09:20 AM)* ? Value Reference Range ?Liver Fibrosis Score 0.49 - * ?Liver Fibrosis Stage F2 - * ?Liver Fibrosis Interpretation SEE NOTE - * ?Nec Inflam Act Score 0.22 - * ?Nec Inflam Act Grade A0-A1 - * ?Nec Inflam Act Interpretation SEE NOTE - * ?PRO-Myphb-9-Macroglobulin 325 A 106-279 - mg/dL * ?FIB-Haptoglobin 112 43-212 - mg/dL * ?FIB-Apolipoprotein A1 158 9 4-176 - mg/dL * ?FIB-Total Bilirubin 0.5 0.2 -1.2 - mg/dL * ?FIB-GGT 16 3-70 - U/L * ?FIB-ALT 34 9-46 - U/L * ?Reference ID [id number] - * ?Footnote SEE NOTE - ?Imaging: US abdomen comp w elastography* sched for 11/19/24 at 9:30 am [facility] [place] 2nd floorfasting 8 hrs prior * * Procedure Codes:?3017F COLOR ECTAL CA SCREEN DOC SCS3040D TOBACCO NON-[id number] BP SCR NOT PRFRM REC REASON NOS * Preventive Medicine:? ??Counseling:?Care goal follow-up plan:?Above Normal BMI Follow-up?Giving encouragement to exercise,?BMI management provided?Yes.? ??Screenings:?Fall Risk Screening?Fall Risk Assessment:?No falls in the past year,?Screening:?No falls in the past year,?Assessment:?Not performed, no reason specified,?Plan of Care:?Not documented, no reason specified.? * Follow Up:?1 Year * * Sign off status: Completed true * Provider:?Joshua Yuen MD Date:? 025 Generated for Wilma mathew/Ivania/eTransmitting on:?11/10/2024 08:45 AM EDT History and Physical Notes * Examination Category Sub-Category Detail Notes Category Not es General Examination GENERAL APPEARANCE: pleasant , well [...]
--- OUTSIDE RECORDS SUMMARY | 2024-11-10 08:46 | XMS_ITS | Encounter Summary ---
Author Organization [facility] Address [address] [place] [address] Care Team Providers Care House Painting Instructor Name Role Phone Unavailable Primary Care Provider Unavailabl e Encounter Details Date Type Department Care Team (Late st Contact Info) Description 06/23/2024 Lab Requisition [facility] - Main Lab [address] [facility] [place] [address] Jose Boyd MD [address] [facility] [address] [place] [address] Benign essential microscopic hematuria Social History Tobacco [...] 06/17/2024 06/23/2024 12:00 PM EST us Jose Body MD LAB PATHOLOGY ORDERABLES Fi nal Result [facility] [address] [place] [address], [place] [phone] documented in this encounter Visit Diagnoses Diagnosis Benign essential microscopic hematuria documented in this encounter
[2024-11-10 09:54] LABS: MANUAL DIFF FLAG NO
[2024-11-10 09:59] LABS: Basophils Absolute Auto 0.1 X10*3/uL (0.0-0.2); Basophils Percent Auto 0.6 % (0-2); Eosinophils Percent Auto 0.2 % (0-4); Hematocrit 45.2 % (42.0-52.0); Hemoglobin 14.8 g/dl (14.0-18.0); Imm Gran Abs Auto 0.05 X10*3/uL (0.00-0.03); Imm Gran Pct Auto 0.5 % (0.0-0.4); Lymphocytes Absolute Auto 0.8 X10*3/uL (1.2-4.9); Lymphocytes Percent Auto 8.1 % (20-40); Mean Corpuscular HGB Conc 32.7 g/dl (31.0-36.0); Mean Corpuscular Volume 91.7 fL (80.0-98.0); Mean Platelet Volume 11.2 fL (9.4-12.4); Monocytes Absolute Auto 0.5 X10*3/uL (0.1-1.2); Monocytes Percent Auto 5.7 % (2-11); Neutrophils Absolute Auto 7.9 x10*3/uL (2.0-8.3); Neutrophils Percent Auto 84.9 % (45-73); Platelet Count 185 X10*3/uL (160-400); Red Blood Count 4.93 X10*6/uL (4.60-5.80); White Blood Count 9.3 X10*3/uL (4.8-10.8)
[2024-11-10 10:25] LABS: Alanine Aminotransferase 46 U/L (0-40); Albumin Level 4.6 g/dL (3.5-5.0); Alkaline Phosphatase 73 U/L (39-117); Anion Gap 12 (12-20); Aspartate Amino Transferase 39 U/L (5-37); Bilirubin Total 0.5 mg/dL (0.0-1.0); Blood Urea Nitrogen 23 mg/dL (9-16); C Reactive Protein < 0.10 mg/dL (< or = 0.50); Calcium 9.6 mg/dL (8.4-10.2); Carbon Dioxide 25 mmol/L (22-29); Chloride 106 mmol/L (96-108); Estimated Glomerular Filt Rate > 60; Glucose Random 120 mg/dL (60-115); Potassium 4.7 mmol/L (3.3-5.1); Sodium 138 mmol/L (135-145); Total Protein 7.1 g/dL (6.5-8.0)
[2024-11-10 10:39] LABS: Erythrocyte Sedimentation Rate 2 MM/HR (0-15)
[2024-11-10 10:48] LABS: HBS Num1 0.96 mIU/mL (0-7.99); HBc Num1 0.07 S/CO (0.00-0.79); HBsAGNum1 0.23 S/CO (0.00-0.99); Hepatitis A Antibody IgM 0.17 Index (0-0.79); Hepatitis B Core Antibody Nonreactive (Nonreactive); Hepatitis B Surface Antigen Negative (Negative); ~HepC Num1 4.16 S/CO (0.00-0.79); ~Hepatitis A Antibody IgM Nonreactive (Nonreactive); ~Hepatitis B Surface Antibody NONREACTIVE (Nonreactive); ~Hepatitis C Antibody Reactive (Nonreactive)
[2024-11-13 00:24] LABS: TS Negative Control Passed; TS Panel A 0; TS Panel B 1; TS Positive Control Passed; TSpotTB Negative (Negative)
== END 2024-11-10 08:28 | disposition home or self-care (01) ==
LOC: HO.10HDL 08:27
PROVIDERS: Absent Provider Hospitalist; PCP Nurse Practitioner Family; Visit Provider Student in an Organized Health Care Education/Training Program
DX: M06.00 Rheumatoid arthritis without rheumatoid factor, unspecified site (principal); J84.9 Interstitial pulmonary disease, unspecified
CPT/HCPCS: 36415; 71046; 80053; 85025; 85652; 86140; 86481; 86704; 86706; 86709; 86803; 87340

== ENCOUNTER → 2024-11-10 09:48 | Outpatient (BNV) | payer MEDICARE, SELFPAY | PROVIDERS: Absent Provider Hospitalist; PCP Nurse Practitioner Family; Visit Provider Radiology Diagnostic Radiology | DX: J84.9 Interstitial pulmonary disease, unspecified (principal); I70.90 Unspecified atherosclerosis | CPT/HCPCS: 71046 ==

== ENCOUNTER 2024-11-15 10:04 | Outpatient (AMB) | payer MEDICARE, SELFPAY ==
[2024-11-15 10:09] VITALS: BP 104/62; PULSE 59; O2SAT 99; BMI 28.6
--- NOTE | 2024-11-15 10:09 | A.OFFVIS_ITS ---
Vital Signs 11/15/24 10:09 Height 5 ft 9 in Weight 194 lb 0.108 oz BMI 28.6 BP 104/62 Blood Pressure Location Rt brachial Position Sitting Pulse 59 Pulse Source Pulse Oximeter Pulse Oximetry (%) 99 Oxygen Delivery Method Room Air Intake Visit Reasons: COPD Allergies morphine [MORPHINE] Allergy (Intermediate, Verified 11/15/24 10:14) HR DROPPED amlodipine Adverse Reaction (Intermediate, Verified 11/15/24 10:14) Depression azithromycin Adverse Reaction (Intermediate, Verified 11/15/24 10:14) Joint Pain clarithromycin [Prevpac] Adverse Reaction (Intermediate, Verified 11/15/24 10 :14) depression (after taking for a few days) - includes most PPI lansoprazole [Prevpac] Adverse Reaction (Intermediate, Verified 11/15/24 10:14) depression (after taking for a few days) - includes most PPI ranitidine [Zantac] Adverse Reaction (Intermediate, Verified 11/15/24 10:14) depression (after taking for a few months) Prilosec Adverse Reaction (Intermediate, Uncoded 11/15/24 10:14) depression (after taking for a few days) - includes most PPI HPI Comments Details: The patient is a 69-year-old gentleman here for evaluation of an abnormal CT scan of the chest. The patient was in usual state health until in 2021 when he underwent a screening endoscopy for the evaluation reflux disease. 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 The patient did undergo radiation therapy. He was also referred to Oncology. Further workup included a PET scan. This was done in July 2022 and I did review the results. No significant FDG activity in the parenchymal lung tissue and no abnormalities noted. The patient did not have any significant lymphadenopathy either. Subsequently after that in September he had a CT scan of the abdomen and pelvis that demonstrated some lung cuts with bilateral areas of airspace disease and consolidations. Patient was asymptomatic. He was placed on antibiotics at that time and he started expectorating some. He was not having any respiratory issues at that time. Subsequently the patient developed the flu she started developing significant myalgia and fatigue arthralgias and was not feeling well. After that he started having worsening cough and shortness of breath and was not feeling well. He started developing pleuritic discomfort. He had a repeat CT scan at that time in October 2022 which was personally by me now demonstrating bilateral peripheral patchy consolidations with some cavitations which appears to me more likely a component of post viral Staph aureus infection. That or some degree of bacteremia. The patient was having significant symptoms and he was seen by urgent care with placement 7 days of Bactrim and also prednisone and he is significantly better at this time. Therefore likely that by treating the likely staph infection is feeling better. That being said he was having some findings on the CT scan of the abdomen prior to being sick. The question still stands is could he have some underlying bronch is associated lymphoma in addition to the gastric lymphoma of the very unlikely. Based on the fact the patient is feeling better on the Bactrim will going to extend the course the Bactrim to treating for total 21 days. Then we will repeat the imaging studies as long as he is doing well. If the patient is not doing well then we will consider bronchoscopy earlier on. Otherwise will repeat the CT scan in around 6 weeks to see if she still has any residual findings and if he does will go ahead and intervene with a diagnostic bronchoscopy. 08/27/2023 the patient is here for pulmonary follow-up visit. The patient overall has been doing fairly well. Recently he started noticing increasing chest congestion. But minimal. The patient continues to be on 10 mg of prednisone. He is status post the Rituxan injection about 6-8 weeks ago. He does have blood work and a follow-up with his exchange trouble shooter soon. In the meantime we did have him go for a chest x-ray appears that he has had a slight increase in the airspace disease primarily on the right lower lobe and also right mid area. This is only minimal degree. Still, will continue to monitor his symptoms and will have a repeat chest x-ray in 3-4 weeks. He is going to see his exchange trouble shooter as well. In case his symptoms are worsening further adjustments of his medications may be warranted. But I am hopeful that he can continue on the lower dose prednisone specially with significant cushingoid appearance and high risk for adverse effects from the chronic prednisone use. Denies any fevers or chills low threshold to start antibiotics if his symptoms worsen. 10/29/2023 the patient is here for a pulmonary follow-up visit. Overall he is doing well. He continues on 10 mg of prednisone. He did follow-up with Rheumatology. Pretty happy with his results with rituximab. He did have a recent chest x-ray. We did personally reviewed. Those changes that he had as far as the opacity in the right hemithorax have improved. Overall his x-ray looks a lot better. Still getting some left-sided pleuritic chest discomfort. He did see Oncology and he was ordered to have a CT scan of chest sometime in November. In the meantime will start decreasing the prednisone some very slowly. Will try by 1 mg every 2 weeks to try to decrease at least to 7 mg. Will try to find the lowest most effective dose. If the patient has any trouble doing this he will call. Otherwise the patient does have some snoring. Denies any significant daytime drowsiness. Lincoln score is only 5/24. Therefore hold off on a sleep study. He has had some weight gain likely from the steroids. Therefore if he does have an increased cardiovascular risk factors home sleep study will be helpful. 03/02/2024 the patient is here for a pulmonary follow-up visit. He continues to do well. He is on 5 mg of prednisone. We have been slowly decreasing it to avoid any rebound effect. Still reassuring. He had a repeat CT scan of the chest which is extremely better. A lot of the nodular densities have resolved. Therefore, going to continues work down to decrease the prednisone slowly. If the patient develops any symptoms in the process he can always call. As he decrease the prednisone he will monitor for any symptoms of adrenal insufficiency. If he has any issues or symptoms of any concerns she will call the office. 05/26/2024 the patient is here for hospital follow-up visit. He has severe COVID with significant ARDS. Has been on prednisone taper. He has been on the oxygen supplementation. We did taken for 6 minute walk test today. The patient did not qualify for a portable oxygen concentrator but we are able to decrease his oxygen to 4 L continuous with activity. He can be on room air at rest. This is good seems to be getting better. In addition to that he can use the oxygen to sleep with. He is currently on prednisone 15 mg. He can get his flu shot now. In addition to that the patient will taper down by 2.5 once a week until he is down to 10 mg and then stay on 10 mg. Patient will follow-up with me in a couple weeks. At that point will reassess for his next Rituxan dose. I am hoping that he can get vaccinated before his next dose. As far as the COVID will go ahead and check his COVID antibodies if his COVID antibodies are n egative he will need to get another vaccine. Otherwise if his positive then have to wait at least 90 days from his last infection to be able to take the vaccine. We did look at his x-ray. Does have significant interstitial disease from his recent COVID on top of the interstitial lung disease at baseline. I did reassure him that he will continue to get better although is going to be a slow recovery. Based on his significant COVID he needs to start pulmonary rehabilitation. He is agreeable to this and will try to move him along to start rehab as soon as possible. 07/20/2024 the patient is here for pulmonary follow-up visit. He is finally feeling a little better. He has some difficult few months and weeks because of worsening chest congestion shortness of breath. Multiple courses of antibiotics without any significant improvement. Now after going up on the prednisone to 20 mg he starting to feel little better. He also been feeling depressed lately. He is not sure if his medication reaction to the amlodipine that. Therefore he stopped the blood pressure medication at this time. He states he is already feeling better. He does have shortness breath with activity [id number] severity. He does have a hard time carrying the oxygen tanks. Therefore we did a titration study with a conserving device and he actually did good on 2 L pulse maintaining a pulse ox of 91% with activity. Therefore will request a POC for better portability outside of the home from his [employer] company, [employer]. He also continues use the oxygen at nighttime with good effect. Soon he will be s tarting on a new medication for his going to give tissue disease as he has been taken off the Rituxan because of the immunosuppressive complication that he has had throughout the few months. In addition to that he was scheduled for bronchoscopy because his ongoing symptoms for deep cultures. However, will go ahead and hold off on the bronchoscopy at this point since he is doing a little better. Patient will come back in 4 weeks and will have him get an x-ray prior to that. 08/17/2024 the patient is here for a pulmonary follow-up visit. Overall he is doing better. He is exercising regularly. He is using the oxygen with good effect. He is looking to getting another concentrator to have in his gym in order for him to continue to exercise more. He is going to look for 1 and then I can give him a prescription for 1. In the meantime he also has a portable oxygen concentrator that has been affecting beneficial. Right now with the cold weather does not work as well though. He did start the aisle 6 inhibitor. This was to take the place of the Rituxan. Rituxan did work very well for his underlying connective tissue disease. However, he then developed COVID and had severe COVID. Therefore he was switched over to the IL 6 inhibitor. Unfortunately resulted high blood pressure to the point that developed hypertensive urgency with a systolic blood pressure of 220. He went to the emergency department. His blood pressure medications were adjusted. He became very concerned he does not want to take the IL 6 inhibitor any longer. He is wondering if he should go back on rituximab. He may have other options. His exchange trouble shooter will be retiring from [employer] and he is going to be seeing a new exchange trouble shooter and a month. Therefore this time he will continue with the 15 mg of prednisone will stay there until he follows up with rheumatology. From a pulmonary standpoint he is doing better. He has had multiple x-rays from April to now in appears that he has significantly improved. He does have baseline interstitial lung disease. 11/15/2024 the patient is here for a pulmonary follow-up visit. Overall he is doing a lot better. He is off the oxygen at this time. He is walking several miles a day. The patient is staying active. He continues on 12.5 mg of prednisone. It has been affecting beneficial. He will follow-up Rheumatology soon and will talk about other alternative therapies for his connective tissue disease. In the meantime he did have a chest x-ray and we did personally review multiple x-rays going back to the fall. There seems to be progression throughout with significant improvement in aeration of the lungs. Exam is also really reassuring with improvement in his air movement without any significant crackles on exam. Overall he looks good and feels good. Will plan to follow-up in 6 months and will repeat the x-ray the time. He will follow-up with Rheumatology to talk about on additional agents to consider. Rituxan did work well for him from a connective tissue disease and inflammatory lung disease. However, he did get deathly ill with COVID. 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 Pneumonia Pleural effusion ILD (interstitial lung disease) Right knee meniscal tear Abnormal biliary HIDA scan Kidney stones [place] of foot Bradycardia Left shoulder pain Normal colonoscopy (~08/2011) Lumbar spondylosis Impaired fasting glucose Dyslipidemia Benign essential hypertension History of gastric ulcer Gastritis Internal hemorrhoids Diverticulosis Benign prostatic hyperplasia Alopecia (capitis) totalis History of Lyme disease (~2009) History of hepatitis C Surgical History History of liver biopsy History of prostate surgery Status post left rotator cuff repair (~11/2020) History of esophagogastroduodenoscopy (EGD) (~06/2019) History of medial meniscus repair of left knee (~12/2016) Hx laparoscopic cholecystectomy (~10/2012) History of right inguinal hernia repair (~2011) History of surgery on right wrist Family History Father Gastric cancer Prostate cancer Family/Other Pancreas cancer Brother Skin cancer Social History Household Members: Other Household Members Other:: mother Housing: House Are you a primary child day care teacher to a significant other at home: No Do you presently have visiting nurse or other home services: No Alcohol intake: never Patient Tobacco Use Status: Never used Tobacco e-Cigarette/Vaping Use: Never Used Second Hand Smoke Exposure: No Advance Directives Date on File: 05/03/24 service: Yes Current occupational status: retired Cognitive needs: No Hearing needs: No Vision needs: Yes Review of Systems Const Denies excessive sweating, Denies fever(s), Denies headache(s) and Denies night sweats Eyes Denies itchy eyes ENT Reports Normal hearing present, Denies headache(s), Denies nasal discharge, Denies post nasal drip and Denies sore throat Card Denies chest pain, Denies chest pain at rest, Denies chest pain with activity, Denies claudication, Denies leg edema, Reports dyspnea on exertion, Denies orthopnea and Denies paroxysmal nocturnal dyspnea Resp Reports chest congestion, Reports cough, Denies excessive phlegm production, Denies pain on inspiration, Denies pain with cough, Reports dyspnea on exertion and Denies stridor Neuro Reports Normal hearing present and Denies headache(s) Endo Denies excessive sweating Edwin/Lymph Denies lymphadenopathy Aller/Immun Denies itchy eyes and Denies seasonal rhinorrhea Physical Exam Vital Signs: Last Vital Signs Pulse 59 11/15/24 10:09 BP 104/62 11/15/24 10:09 Pulse Ox 99 11/15/24 10:09 Oxygen Delivery Method Room Air 11/15/24 10:09 BMI result Body Mass Index 28.6 Last Vital Signs Temp 97.4 F 04/29/24 08:00 Pulse 53 04/29/24 08:00 Resp 20 04/29/24 08:00 BP 139/79 04/29/24 08:00 Pulse Ox 87 L 04/29/24 08:00 O2 Del Method Oxymask 04/29/24 08:00 O2 Flow Rate 7 04/29/24 08:00 BMI result Body Mass Index 27.1 Const Other: Awake alert; able to speak short sentences General: cooperative and healthy appearing Nutritional Appearance: well nourished Orientation/consciousness: patient oriented x3 Limitations: no limitations HEENT Head: Yes normal to inspection Eyes General: appearance normal, both eyes and all related structures Neck Neck: Yes normal visual inspection Chest Chest palpation & inspection: normal inspection of the chest Resp Other: Diminished at bases with diffuse end inspiratory crackles and no expiratory w heezes Effort & Inspection: normal respiratory effort and able to speak in complete sentences Auscultation: no rales, no rhonchi, no wheezes and diminished lung sounds Cardio Other: No S4; positive S1-S2; no S3 murmurs rubs or gallops Rhythm: regular rhythm Heart sounds: S1 normal heart sound present and S2 normal heart sound present GI Other: Soft nontender nondistended normoactive bowel sounds Palpation (GI): Soft to palpation Skin General skin exam: no rashes or lesions noted Neuro General: patient oriented x3 Cranial nerves: Yes Normal hearing present Extrem Other: No edema bilaterally General: Yes no clubbing, cyanosis or edema Assessment & Plan Assessment & Plan (1) ILD (interstitial lung disease): Code(s): J84.9 - Interstitial pulmonary disease, unspecified Category: Medical (2) Rheumatoid arthritis: Code(s): M06.9 - Rheumatoid arthritis, unspecified Category: Medical Qualifiers: Rheumatoid arthritis location: unspecified site Rheumatoid factor presence: unspecified presence Qualified Code(s): M06.9 - Rheumatoid arthritis, unspecified (3) residential (current) use of systemic steroids: Code(s): Z79.52 - cosmetic surgeon (current) use of systemic steroids Category: Medical Plan Prednisone 12.5 mg daily until he follow up rheumatology F/U Rheumatology soon Oxygen revision: discontinued rehab online CXR stable, improved F/U 4-6 months with repeat CXR Orders: Orders XR chest 2V Today J84.9 - Interstitial pulmonary disease, unspecified Coding Level of Care Code Est Pt Level 4 (13300) Complex EM visit Add On G2211 Diagnoses ILD (interstitial lung disease) J84.9 Rheumatoid arthritis, involving unspecified site, unspecified whether rheumatoid factor present M06.9 Rheumatoid arthritis location: unspecified site Rheumatoid factor presence: unspecified presence cosmetic surgeon (current) use of systemic steroids Z79.52 Time Spent (min) 17
--- OUTSIDE RECORDS SUMMARY | 2024-11-15 11:46 | XMS_ITS ---
Author Organization [facility] Address [address] [place] [address] Care Team Providers Care Wood Car Builder Name Role Phone SHANITA RODRIGUEZ Primary Care Provider Joshua Downey [phone] REASON FOR VISIT Patient presents today for a f/u from gastric ulcer Encounters Encounter Location Date Provider Diagnosis [facility] [address] [facility] [address] [place] [id number] 10/05/2024 Joshua Yuen Plan Of Treatment Next Appt Details Provider Name:Joshua Yuen , 10/25/2025 02:10:00 PM, [address], [address], [place], [address], Progress Notes * MULUGETA DOVEDOB:1955 ( 69 yo M)Acc No.[id number]:10/05/2024 Progress Notes Patient:?MULUGETA DOVE Provider:?Joshua Yuen MD :1955???Age:69 Y???Sex:Male Ham e:10/05/2024 Address:[facility] [id number] Pcp:SHANITA RODRIGUEZ Subjective: * Chief Complaints: * [...] MD Date:? 025 Generated for Wilma mathew/[place]van[place]/Nilsonitting on:?11/15/2024 11:46 AM EDT
--- OUTSIDE RECORDS SUMMARY | 2024-11-15 11:46 | XMS_ITS ---
Author Organization [facility] Address [address] [place] [address] Care Team Providers Care Lens Edger Name Role Phone SHANITA RODRIGUEZ Primary Care Provider Joshua Downey [phone] REASON FOR VISIT cancelled by provider Encounters Encounter Location Date Provider Diagnosis [facility] [address] [place] [address] 10/06/2024 Joshua Yuen Plan Of Treatment Next Appt Details Provider Name:Joshua Yuen , 10/25/2025 02:10:00 PM, [address], [address], [place], [address], Progress Notes * VALERIA DOVE:1955 ( 69 yo M)Acc No.[id number]:10/06/2024 Patient:?MULUGETA DOVE :1955???Age:69 Y???Sex:Male Address:[facility] [place] [address] * true * Date:? Generated for Printi ng/Famassimog/eTransmitting on:?11/15/2024 11:46 AM EDT
--- OUTSIDE RECORDS SUMMARY | 2024-11-15 11:46 | XMS_ITS | Clinical Summary ---
Author Organization [address] [place] [address] Phone Care Team Providers Care Manager Cosmetics Name Role Phone Unavailable Primary Care Provider [...] Vaccine ( - 2023-2 5 season) 2024 Abdominal Aortic Aneurysm (A AA) Screen 06/23/2024 Cholesterol Screening (Lipid Panel) 06/23/2024 Colorectal Cancer Screening: Colonoscopy 06/23/2024 Depression Screening 06/23/2024 Falls Risk Assessment 06/23/2024 Hepatitis C Screening 06/23/2024 Medicare Annual Wellness Visit 06/23/2024 Social Influencers of Health Screening 06/23/2024 Influenza Vaccine (Season Ended) 2025 RSV Immunization Adult Patie nts (1 - [...] to complete this topic Insurance MEDICARE MED [facility]
--- OUTSIDE RECORDS SUMMARY | 2024-11-15 11:47 | XMS_ITS ---
Author Organization [facility] Address [address] [place] [address] Care Team Providers Care District Plant Supervisor Name Role Phone SHANITA RODRIGUEZ Primary Care Provider Joshua Downey [phone] Allergies Allergen (clinical drug ingredient) Drug/Non Drug Allergy documented on EMR Reaction Allergy Type Onset Date Status morphine Morphine Sulfate Unknown Drug Allergy Active Substance with hydrogen/potassium adenosine triphosphatase enzyme system inhibitor mechanism of action (substance) PPI's (uncoded) Unknown Allergy Active Results Component Value Reference Range Notes Prothrombin Time INR Reviewed date:10/21/2024 11:22:25 AM Interpretation: Performing Lab:[address] [address] Notes/Report: Prothrombin Time 12.5 10.9-12.4 SEC INTERNATIONAL [...] Pnl Reviewed date:11/06/2024 09:52:48 PM Interpretation: Performing Lab:[facility], [address] [place] [phone] Notes/Report: Liver Fibrosis Score 0.49 Liver Fibrosis [...] a>0.62 and a<=1.00 : A3 (severe activity) JXG-Rukas-3-Macroglobulin 325 106-279 mg/dL FIB-Haptoglobin 112 43-212 mg/dL FIB-Apolipoprotein A1 158 94-176 mg/dL FIB-Total Bilirubin 0.5 0.2-1.2 mg/dL FIB-GGT 16 3-70 U/L FIB-ALT 34 9-46 U/L Reference ID [id number] Footnote SEE NOTE The reliability of results [...] The performance characteristics have been determined by [facility]. It has not been cleared or approved by the U.S. Food and Drug Administration. Performance characteristics refer to the analytical performance of the test. [employer], the associated logo, Revisu and all associated [employer] patel are the registered trademarks of [employer]. All third democrat patel - (R) and (TM) - are the property of their respective owners. (C) 7470-5024 [employer]. All rights reserved. THIS TEST WAS PERFORMED AT: [employer] [address] [place] [address] BITA ROMAN MD,PHD,WILFREDO REASON FOR VISIT elevated [...] Risk Notes Problem Elevated liver enzymes level (058315957) Elevated liver function tests (R94.5) Active confirmed Problem Fatty liver (223365593) Fatty liver (K76.0) Active confirmed Vital Signs Blood pressure systolic 111 mm Hg 10/20/19 25 Blood pressure diastolic 11 mm Hg 025 Height 69 in 10/19/2024 Weight 190 lbs 10/19/2024 BMI 28.06 kg/m2 10/19/2024 Encounters Encounter Location Date Provider Diagnosis [facility] [address] [place] [address] 10/19/2024 Joshua Yuen History of hepatitis C [...] Name:Joshua Yuen , 10/25/2025 02:10:00 PM, [address] [facility], [address], [place], [address], Progress Notes * MULUGETA DOVEDOB:1955 ( 69 yo M)Acc No.[id number]:10/19/2024 Progress Notes Patient:?MULUGETA DOVE Provider:?Joshua Yuen MD :1955???Age:69 Y???Sex:Male Ham e:10/19/2024 Address:[address] [place], [place] [id number] Pcp:SHANITA RODRIGUEZ Subjective: * Chief Complaints: * [...] Single. 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 [...] Inflam Act Interpretation SEE NOTE - * ?WUX-Owlmg-2-Macroglobulin 325 A 106-279 - mg/dL * ?FIB-Haptoglobin 112 43-212 - mg/dL * ?FIB-Apolipoprotein A1 158 9 4-176 - mg/dL * ?FIB-Total Bilirubin 0.5 0.2 -1.2 - mg/dL * ?FIB-GGT 16 3-70 - U/L * ?FIB-ALT 34 9-46 - U/L * ?Reference ID [id number] - * ?Footnote SEE NOTE - ?Imaging: US abdomen comp w elastography* sched for 11/19/24 at 9:30 am [facility] 2nd floorfasting 8 hrs prior [...] Inflam Act Interpretation SEE NOTE - * ?UFE-Wtszi-4-Macroglobulin 325 A 106-279 - mg/dL * ?FIB-Haptoglobin 112 43-212 - mg/dL * ?FIB-Apolipoprotein A1 158 9 4-176 - mg/dL * ?FIB-Total Bilirubin 0.5 0.2 -1.2 - mg/dL * ?FIB-GGT 16 3-70 - U/L * ?FIB-ALT 34 9-46 - U/L * ?Reference ID [id number] - * ?Footnote SEE NOTE - ?Imaging: US abdomen comp w elastography* sched for 11/19/24 at 9:30 am [facility] Ul[facility]ound Dept 2nd floorfasting 8 hrs prior [...] Inflam Act Interpretation SEE NOTE - * ?YYQ-Ncjyv-0-Macroglobulin 325 A 106-279 - mg/dL * ?FIB-Haptoglobin 112 43-212 - mg/dL * ?FIB-Apolipoprotein A1 158 9 4-176 - mg/dL * ?FIB-Total Bilirubin 0.5 0.2 -1.2 - mg/dL * ?FIB-GGT 16 3-70 - U/L * ?FIB-ALT 34 9-46 - U/L * ?Reference ID [id number] - * ?Footnote SEE NOTE - ?Imaging: US abdomen comp w elastography* sched for 11/19/24 at 9:30 am [facility] Ul[facility] Dept 2nd floorfasting 8 hrs prior * * Procedure Codes:?3017F COLOR ECTAL CA SCREEN DOC UIN5473Z TOBACCO NON-IJGLO5509 BP SCR NOT PRFRM REC REASON NOS [...] MD Date:? 025 Generated for Wilma mathew/Ivania/eTransmitting on:?11/15/2024 11:46 AM EDT History and Physical Notes * [...]
--- OUTSIDE RECORDS SUMMARY | 2024-11-15 11:47 | XMS_ITS | Encounter Summary ---
Author Organization [facility] Address [address] [place] [address] Care Team Providers Care Crowd Controller Name Role Phone Unavailable Primary Care Provider Unavailabl e Encounter Details Date Type Department Care Team (Late st Contact Info) Description 06/23/2024 Lab Requisition [facility] - Main Lab [address] [facility] [place] [address] Jose Boyd MD [address] [facility] [address] [place] [address] Benign essential microscopic hematuria Social History Tobacco [...] MD LAB PATHOLOGY ORDERABLES Fi nal Result [facility] [address] [place] [address], [place] [phone] documented in this encounter Visit Diagnoses Diagnosis Benign essential microscopic hematuria documented in this encounter
--- OUTSIDE RECORDS SUMMARY | 2024-11-15 11:47 | XMS_ITS | Patient Health Record ---
Author Organization [facility] Address [address] [place] [address] Care Team Providers Care Strategic Account Executive Name Role Phone SHANITA RODRIGUEZ Primary Care Provider Joshua Downey [phone] Allergies Allergen (clinical drug ingredient) Drug/Non Drug Allergy documented on EMR Reaction Allergy Type Onset Date Status morphine Morphine Sulfate Unknown Drug Allergy Active Substance with hydrogen/potassium adenosine triphosphatase enzyme system inhibitor mechanism of action (substance) PPI's (uncoded) Unknown Allergy Active Results Component Value Reference Range Notes Prothrombin Time INR Reviewed date:10/21/2024 11:22:25 AM Interpretation: Performing Lab:[address] [address] Notes/Report: Prothrombin Time 12.5 10.9-12.4 SEC INTERNATIONAL [...] Pnl Reviewed date:11/06/2024 09:52:48 PM Interpretation: Performing Lab:[facility], [address] [place] [phone] Notes/Report: Liver Fibrosis Score 0.49 Liver Fibrosis [...] a>0.62 and a<=1.00 : A3 (severe activity) IRY-Iwyxr-8-Macroglobulin 325 106-279 mg/dL FIB-Haptoglobin 112 43-212 mg/dL FIB-Apolipoprotein A1 158 94-176 mg/dL FIB-Total Bilirubin 0.5 0.2-1.2 mg/dL FIB-GGT 16 3-70 U/L FIB-ALT 34 9-46 U/L Reference ID [id number] Footnote SEE NOTE The reliability of results is dependent on compliance with the preanalytical and analytical conditions recommended by [employer]. The tests have to be deferred for: [...] The performance characteristics have been determined by [employer] [facility]. It has not been cleared or approved by the U.S. Food and Drug Administration. Performance characteristics refer to the analytical performance of the test. Calixar, the associated logo, JRKICKZ and all associated [employer] patel are the registered trademarks of [employer]. All third green party patel - (R) and (TM) - are the property of their respective owners. (C) 4250-9725 [employer]. All rights reserved. THIS TEST WAS PERFORMED AT: [facility] [address] [place] [address] BITA ROMAN MD,PHD,WILFREDO Complete Blood Count Auto Di ff Reviewed date:10/21/2024 11:21:49 AM Interpretation: Performing Lab:[facility], [address] [place] [address] Notes/Report: White Blood Count 10.5 4.8-10.8 X10*3/uL [...] Panel Reviewed date:11/06/2024 09:52:32 PM Interpretation: Performing Lab:[address] [address] Notes/Report: Bilirubin Total 0.6 0.0-1.0 mg/dL Bilirubin Direct 0.2 0.0-0.5 mg/dL Aspartate Amino Transferase 36 5-37 U/L Alanine Aminotransferase 45 0-40 U/L Total Protein 7.4 6.5-8.0 g/dL Albumin Level 4.4 3.5-5.0 g/dL Alkaline Phosphatase 68 39-117 U/L Alpha Fetoprotein Reviewed date:11/06/2024 09:52:14 PM Interpretation: Performing Lab:[address] [address] Notes/Report: Alpha Fetoprotein 2.7 <6.1 ng/mL This test was performed using the Trena Waverly chemiluminescent method. Values obtained from different assay methods cannot be used interchangeably. AFP levels, regardless of value, should not be interpreted as absolute evidence of the presence or absence of disease. THIS TEST WAS PERFORMED AT: [facility] [address] [place] [phone] DENNISE CAMP MD Hep C Viral Load Reviewed date:10/24/2024 02:17:03 PM Interpretation: Performing Lab:[address] [address] Notes/Report: HepC Viral Load <15 NOT DETECTED NOT DETECTED IU/mL HCV Log PCR <1.18 NOT DETECTED NOT DETECTED Log IU/mL For additional information, please refer to [email or web address] (This link is being provided for informational/ educational purposes only.) THIS TEST WAS PERFORMED AT: [facility] [address] [place] [phone] DENINSE CAMP MD Reason For Referral No Information [...] Problem Status W/U Status Risk Notes Problem [id number] Encounter for screening for malignant neoplasm of colon (Z12.11) Active confirmed Problem 797547581 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 Problem Fatty liver (278819528) Fatty liver (K76.0) Active confirmed Problem 736506714 Gastroesophageal reflux disease, esophagitis presence not specified (K21.9) Active confirmed Problem Hiatal hernia (94267158) Hiatal hernia (K44.9) Active confirmed Problem 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 Problem Gastritis (4513741) Gastritis (K29.70) Active confirmed Problem History of malignant neoplasm of stomach (767576123) History of gastric cancer (Z85.028) Active confirmed Problem 10206394 Dysphagia, unspecified type (R13.10) Active confirmed Problem 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 Problem History of hepatitis C (32600651966179) History of hepatitis C (Z86.19) Active confirmed Problem Elevated liver enzymes level (223963384) Elevated liver function tests (R94.5) Active confirmed Problem Gastric ulcer (117093390) Gastric ulcer (K25.9) Active confirmed Problem Diverticulosis of colon (395874456) Diverticulosis of colon (K57.30) Active confirmed Vital Signs Blood pressure diastolic 11 mm Hg 10/19/2024 Height 69 in 10/19/2024 Blood pressure systolic 111 mm Hg 10/19/2024 Weight 190 lbs 10/19/2024 BMI 28.06 kg/m2 10/19/2024 Encounters Encounter Location Date Provider Diagnosis [facility] [address] [place] [address] 10/19/2024 Joshua Yuen History of hepatitis C Z86.19 ; Elevated liver function tests R94.5 and Fatty liver K76.0 [facility] [address] [place] [address] 06/02/2024 Joshua Yuen [facility] [address] [place] [address] 10/06/2024 Joshua Yuen Assessments Encounter Date Diagnosis [...] 10/19/2024 CBC w DIFF 10/19/2024 ALPHA-FETOPROTEIN,TUMOR MARKER 6 [...] Name:Joshua Yuen , 10/25/2025 02:10:00 PM, [address], [address], [place], [address], Insurance Providers Payer Name Payer Address Payer Phone Subscriber Number Group Number Insured Name Patient Relationship to Insured Coverage Start Date Coverage End Date MEDICARE OF [place] [address] [place] [id number] MULUGETA DOVE Self - patient is the insured 8 MEDEX ATTN CLAIMS [address] [place] [address] [id number] MULUGETA DOVE Self - patient is the [...] illness--lasts for up to 3 days Denies NC,DM,CVA,Lung disease,renal dise ase EGD in 06/2012 with [...] IV Rituximab with Dr. Arellano from rheumatology [facility] with hospitalization i n April 2024 with resultant issues with intermittent hypertension, palpitations, and worsening fatigue Surgical History Surgery Date(Month/Year) Lipoma on back Rotator cuff repair left 11/2020 Left knee CCY on 10/14/[address] Pate for RUQ pain and abnormal HIDA with decreased ejection fraction Wrist surgery Prostate surgery Hernia surgery-right inguinal
== END 2024-11-15 10:33 | disposition home or self-care (01) ==
LOC: HO.HPS 10:05
PROVIDERS: PCP Nurse Practitioner Family; Visit Provider Hospitalist
DX: J84.9 Interstitial pulmonary disease, unspecified (principal); M06.9 Rheumatoid arthritis, unspecified; Z79.52 Long term (current) use of systemic steroids
CPT/HCPCS: 99214; G2211

== ENCOUNTER → 2024-11-15 10:04 | Outpatient (BNVA) | payer MEDICARE, SELFPAY | PROVIDERS: PCP Nurse Practitioner Family; Visit Provider Hospitalist | DX: J84.9 Interstitial pulmonary disease, unspecified (principal); M06.9 Rheumatoid arthritis, unspecified; Z79.52 Long term (current) use of systemic steroids | CPT/HCPCS: 99212 ==

== ENCOUNTER 2024-11-19 10:04 | Outpatient (REF) | payer MEDICARE, SELFPAY ==
--- NOTE | ~2024-11-19 | US_ITS ---
EXAMINATION: US ABDOMEN COMPLETE WITH LIVER ELASTOGRAPHY HISTORY: FATTY LIVER, ELEVATED LFTS, HX OF HEP C TECHNIQUE: Real-time grayscale ultrasound imaging of the abdomen was performed and images were reviewed. COMPARISON: Comparison is made with the prior examination dated 12/26/2021. FINDINGS: Liver: The right lobe of the liver measures 14.5 cm in size. The left lobe of the liver measures 7.0 cm in size. The liver demonstrates increased echotexture, consistent with steatosis. No focal mass or intrahepatic biliary ductal dilatation is identified. There is normal hepatopedal flow in the portal vein. Ultrasound elastography of the liver was performed with 10 separate measurements of the liver parenchyma with the patient in the supine position. Measurements were obtained approximately 2 cm below Olga's capsule and perpendicular to the capsule. Images are of satisfactory quality. The median shear wave velocity is 1.85 m/s (previously 1.44 m/s). The interquartile range/median (IQR/median) is 0.09. Gallbladder and biliary tree: The gallbladder is surgically absent. The common bile duct is normal in caliber measuring 3 mm. Kidneys: Right kidney is 10.1 cm in length. The left kidney measures 11.2 cm in length. The kidneys are unremarkable, without evidence of masses, hydronephrosis, or calculi. Pancreas: The pancreatic head, neck, and body are unremarkable. The pancreatic tail is obscured by bowel gas. Spleen: The spleen is normal in size and contour, measuring 9.0 cm in length. Abdominal aorta and inferior vena cava: The visualized portions of the abdominal aorta and inferior vena cava are normal in caliber. There is no free fluid in the abdomen. US/US abdomen comp w elastography IMPRESSION: Hepatic steatosis. The median shear wave velocity in the liver is 1.85 m/s, corresponding to a median liver stiffness of 10.45 kPa. The IQR/median value is 0.04. This is indicative of a quality data set. Findings are indicative of a high elastography value suggestive of compensated advanced chronic liver disease. REFERENCE: Society of Radiologists in Ultrasound Liver Stiffness Thresholds (2020): LIVER STIFFNESS THRESHOLDS: *Shear wave velocity less than 1.3 m/s (Liver Stiffness equal or less than 5 kPa): High probability of being normal. *Shear wave velocity less than 1.7 m/s (Liver Stiffness less than 9 kPa): In the absence of other known clinical signs, rules out compensated advanced chronic liver disease. *Shear wave velocity between 1.7-2.1 m/s (Liver Stiffness 9-13 kPa): Suggestive of compensated advanced chronic liver disease but need further test for confirmation. *Shear wave velocity between 2.1-2.4 m/s (Liver Stiffness 13-17 kPa): Rules in compensated advanced chronic liver disease. *Shear wave velocity greater than 2.4 m/s (Liver Stiffness over 17 kPa): Suggestive of clinically significant portal hypertension. QUALITY OF DATA SET: *IQR/Median value equal or less than 0.15 implies a quality data set. *IQR/Median value over 0.15 implies a poor quality data set. SIGNIFICANT CHANGE FROM PRIOR EXAM: Significant change if liver stiffness measurement is 10% or greater from prior exam. OTHER CONSIDERATIONS: The stage of liver fibrosis may be overestimated in the setting of acute hepatitis, liver inflammation, elevated liver function tests, hepatic vascular congestion, obstructive cholestasis, non-fasting state, and infiltrative diseases such as amyloidosis and lymphoma. In some patients with NAFLD, the liver stiffness thresholds for compensated advanced chronic liver disease may be lower. In causes other than viral hepatitis and NAFLD, liver stiffness thresholds are not well established. Electronically signed by: Joshua Humphreys MD 11/19/2024 11:05 AM EDT
--- OUTSIDE RECORDS SUMMARY | 2024-11-19 10:43 | XMS_ITS | Encounter Summary ---
Author Organization [facility] Address [address] [place] [address] Care Team Providers Care Cell Plasterer Name Role Phone Unavailable Primary Care Provider Unavailabl e Encounter Details Date Type Department Care Team (Late st Contact Info) Description 06/23/2024 Lab Requisition [facility] - Main Lab [address] [facility] [place] [address] Jose Boyd MD [address] [facility] [address] [place] [address] Benign essential microscopic hematuria Social History Tobacco [...] high grade urothelial carcinoma. 07/09/2024 10:33 AM [facility] Gross Description A. Urine, Voided, : Recd 1 TP cyto. 07/09/2024 10:33 AM [facility] Disclaimer Unless otherwise specified, all tissue is 10% NB formalin fixed and paraffin embedded. 07/09/2024 10:33 AM [facility] Tissue Urine specimen from urethra / Unknown 06/17/2024 06/23/2024 12:00 PM EST us Jose Boyd MD LAB PATHOLOGY ORDERABLES Fi nal Result [facility] [address] [place] [address], [place] [phone] documented in this encounter Visit Diagnoses Diagnosis Benign essential microscopic hematuria documented in this encounter
--- OUTSIDE RECORDS SUMMARY | 2024-11-19 10:43 | XMS_ITS | Clinical Summary ---
Author Organization [address] Address [address] [place] [address] Phone Care Team Providers Care Line Crew Supervisor Name Role Phone Unavailable Primary Care Provider [...] age to complete this topic Meningococcal B Vaccine Aged Out No l onger eligible based on patient's age to complete this topic RSV Immunization Patients Un raji 20 months Aged Out No longer eligible b ased on patient's age to complete this topic Varicella Vaccines Aged Out No longer eligible based on patient's age to complete this topic Insurance MEDICARE [facility]
== END 2024-11-19 10:05 | disposition home or self-care (01) ==
LOC: HO.US 10:04
PROVIDERS: PCP Nurse Practitioner Family; Visit Provider Internal Medicine
DX: R94.5 Abnormal results of liver function studies (principal); Z86.19 Personal history of other infectious and parasitic diseases
CPT/HCPCS: 76700; 76981

== ENCOUNTER → 2024-11-19 10:08 | Outpatient (BNV) | payer MEDICARE, SELFPAY | PROVIDERS: PCP Nurse Practitioner Family; Visit Provider Radiology Diagnostic Radiology | DX: K76.9 Liver disease, unspecified (principal); Z90.49 Acquired absence of other specified parts of digestive tract | CPT/HCPCS: 76700; 76981 ==

== ENCOUNTER 2024-11-24 10:27 | Outpatient (AMB) | payer MEDICARE, SELFPAY ==
--- NOTE | 2024-11-24 10:28 | MHC.OFFVIS ---
Vital Signs 11/24/24 10:34 Height 5 ft 9 in Weight 192 lb 7.417 oz BMI 28.4 BP 130/74 Blood Pressure Location Rt brachial Position Sitting Pulse 59 Pulse Source Pulse Oximeter Pulse Oximetry (%) 98 Oxygen Delivery Method Room Air Intake Visit Reasons: RA-ILD Intake Note: Patient presents today for RA-ILD. Allergies morphine [MORPHINE] Allergy (Intermediate, Verified 11/24/24 10:33) HR DROPPED amlodipine Adverse Reaction (Intermediate, Verified 11/24/24 10:33) Depression azithromycin Adverse Reaction (Intermediate, Verified 11/24/24 10:33) Joint Pain clarithromycin [Prevpac] Adverse Reaction (Intermediate, Verified 11/24/24 10:33) depression (after taking for a few days) - includes most PPI lansoprazole [Prevpac] Adverse Reaction (Intermediate, Verified 11/24/24 10:33) depression (after taking for a few days) - includes most PPI ranitidine [Zantac] Adverse Reaction (Intermediate, Verified 11/24/24 10:33) depression (after taking for a few months) Prilosec Adverse Reaction (Intermediate, Uncoded 11/15/24 10:14) depression (after taking for a few days) - includes most PPI HPI Comments Details: Patient is a 69-year-old male with alopecia universalis, 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 At that time he was off of immunosuppression and prednisone monotherapy due to concerns of infections. Decision made to monitor him on steroids and to a very slow taper Patient decreased his prednisolone from 15 mg to 12.5 mg and has been noticing more aches but overall continues to do well Followed up with pulm 11/15/2024. Evaluation at that time was stable with improved chest x-ray. Patient willing to try anakinra if insurance will pay for it Rheumatologic History: Initially evaluated 12/13/2022 for polyarthritis. Subsequently found to have recurrent lung infiltrates that was diagnosed as cryptogenic organizing pneumonia. Given the arthritis and lung findings he was evaluated for an underlying autoimmune disease which ultimately revealed +PL-7, +dsDNA, +NT5C1A Ab. RF, CCP and JESSICA negative He was ultimately diagnosed with seronegative rheumatoid arthritis complicated by RA ILD and was started on rituximab infusions Patient received 1 dose of rituximab 03/25. 2 weeks after he was diagnosed with COVID. Few days later his condition worsened and he was admitted to the hospital for a few days, had to have oxygen supplementation (ARDS 2/2 COVID). On discharge patient needed some oxygen. He was also treated with prednisone taper at that time. 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 Pneumonia Pleural effusion ILD (interstitial lung disease) Right knee meniscal tear Abnormal biliary HIDA scan Kidney stones [place] of foot Bradycardia Left shoulder pain Normal colonoscopy (~08/2011) Lumbar spondylosis Impaired fasting glucose Dyslipidemia Benign essential hypertension History of gastric ulcer Gastritis Internal hemorrhoids Diverticulosis Benign prostatic hyperplasia Alopecia (capitis) totalis History of Lyme disease (~2009) History of hepatitis C Surgical History History of liver biopsy History of prostate surgery Status post left rotator cuff repair (~11/2020) History of esophagogastroduodenoscopy (EGD) (~06/2019) History of medial meniscus repair of left knee (~12/2016) Hx laparoscopic cholecystectomy (~10/2012) History of right inguinal hernia repair (~2011) History of surgery on right wrist Family History Father Gastric cancer Prostate cancer Family/Other Pancreas cancer Brother Skin cancer Social History Household Members: Other Household Members Other:: mother Housing: House Are you a primary health care technician to a significant other at home: No Do you presently have visiting nurse or other home services: No Alcohol intake: never Patient Tobacco Use Status: Never used Tobacco e-Cigarette/Vaping Use: Never Used Second Hand Smoke Exposure: No Advance Directives Date on File: 05/03/24 service: Yes Current occupational status: retired Cognitive needs: No Hearing needs: No Vision needs: Yes Review of Systems Const Details: Review of Systems Constitutional: Denies fever, chills, weight loss ENT: Denies vision changes, eye pain or eye redness, dental caries, dry mouth GI: Denies nausea, vomiting, diarrhea, abdominal pain, change in BM Pulm: Denies SOB, TURCIOS, hemoptysis, wheezing Cards: Denies chest pain, palpitations Skin: Denies Raynaud's, rash, nail changes, photosensitivity, 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 Well appearing and in no apparent painful distress HEENT Conjunctiva and sclera clear. ?Pupils equal round and reactive to light. ?No lymphadenopathy. ? CHEST/RESPIRATORY SYSTEM Normal respiratory effort and able to speak in complete sentences. ?Clear to auscultation bilaterally. ?No crackles, rales, rhonchi, wheezes heard. CARDIAC SYSTEM Regular rate and rhythm. ?S1 and S2 heard no murmurs. 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 No deformities noted. ?No synovitis noted to the MCPs, PIPs or DIPs. ?No tenderness to palpation of these joints. Heberden's nodes noted. Wrists: ?Full range of motion at the wrists without pain. ?No tenderness to palpation or synovitis noted to the wrists. Elbows: Full range of motion without pain. No tenderness, weakness, swelling, increased warmth or erythema. Shoulders: Full range of motion without pain. No tenderness, weakness, swelling, increased warmth or erythema. Hips: Full range of motion without pain. Hip bursa: No tenderness to palpation Knees: ?Full range of motion. ?No tenderness, swelling, increased warmth or erythema.?No effusion or crepitations Ankles: Full range of motion. ?No tenderness, swelling, increased warmth or erythema.? Feet: ?Negative squeeze test. ?No tenderness to palpation or swelling of the MTPs. Tender points:?No tenderness to palpation of the bilateral trapezius, supraspinatus, greater trochanters, anterior costochondral junctions, bilateral gluteal areas, bilateral suboccipital muscle insertions SKIN Skin intact without rashes. Results Reviewed Results Reviewed: Laboratory Tests 11/10/24 11/10/24 08:30 09:01 WBC 9.3 RBC 4.83 Hgb 14.8 Hct 43.6 Plt Count 174 ESR 2 Sodium 137 Potassium 4.4 Chloride 108 Carbon Dioxide 22 BUN 23 H Creatinine 0.99 AST 39 H ALT 45 H Alkaline Phosphatase 70 C-Reactive Protein < 0.10 Immunology Labs 12/11/22 03/19/23 08/27/23 09:31 08:50 11:20 Rheumatoid Factor < 13.0 Cycl Citrul Peptide IgG <[address]-7 Antibody 15 H Assessment & Plan Assessment & Plan (1) Seronegative rheumatoid arthritis: Comment: RTX 1 g X 2 doses 07/2023 1 dose 03/2024 followed by multiple infections Code(s): M06.00 - Rheumatoid arthritis without rheumatoid factor, unspecified site Category: Medical Plan: #Seronegative RA Patient with seronegative rheumatoid arthritis currently with no evidence of active synovitis on examination today on 12.5mg of prednisone Given his concern for infection I think the next best treatment would potentially be anakinra daily injections. Because of its fast onset and rapid metabolism it is easy to stop in the setting of an infection. For now patient would like to slowly taper his steroids and see if he has any return of symptoms. While his joints may be under control now the concern is that he is not covered for his ILD. He last received rituximab 03/2024. Other RA ILD treatments include tocilizumab but patient is concerned about the immunosuppressive side effects of this medication and given his history of gastric lymphoma status post resection he is concerned about the risk of diverticulitis with intestinal perforation. Which I agree is concerning. For now we will continue to monitor him on steroids. Decrease his steroids from 12.5mg to 10mg, follow up in 3 months. A I already discussed this with patient and he is willing to do daily injections. For now we will monitor him on Prednisone and follow up in 3 months. Plan - Decrease prednisone to 10mg daily - Start PA for Anakinra to cover RA and RA related ILD - Continue pulm follow up - RTC 3 months - Labs prior to visit: CBC, CMP, ESR, CRP, hepatitis panel, T spot References Kelechi Fernandez, Thea B. Interstitial lung diseases induced or exacerbated by DMARDS and biologic agents in rheumatoid arthritis: a systematic literature review.?Semin Arthr Rheum.?(2014) 43:613?26. doi: 10.1016/j.semarthrit.2013.09.005 Onofre BARRERA. The use of anakinra, an interleukin-1 receptor antagonist, in the treatment of rheumatoid arthritis.?Rheum Dis Clin [place].?(2003) 30:365?80. doi: 10.1016/j.rdc.2003.01.005 Caroline T, Dipti A, Franko D, Rema SN, Oscar A. Biologic Treatments in Interstitial Lung Diseases. [facility] ([facility]). 2018Oct 21;6:41. doi: 10.3389/fmed.2019.09326. PMID: 57309552; PMCID: [id number]. 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 Inflammatory arthritis is a component of antisynthetase syndrome as well. The last CK was checked back in 2022 and it was low at 23. We will still keep this in the back of our mind as this could be evolving antisynthetase syndrome with inflammatory arthritis mimicking rheumatoid arthritis. Anakinra has been used for antisynthetase syndrome as well so this would be a good agent to place the patient on [place] C, [place] N, Diomedes G, Nikii G, Koko A, Caitlin M, Dagronaldo L. Anakinra for the Treatment of Antisynthetase Syndrome: A Monocentric Case Series and a Systematic Literature Review. J Rheumatol. 2022;50(1):151-153. doi: 10.3899/jrheum.521158. Epub 2021Apr 25. PMID: 72701128. 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: Code(s): Z79.52 - alf (current) use of systemic steroids Category: Medical Plan: #Long-term Use of Steroids Discussed with patient the risks and benefits of steroid for managing the rheumatic condition Benefits include: - Reduced pain, improved mobility, increased participation in activities, and decreased progression of disease Risks include: - GI upset, potential ultrasound worsening or formation (especially in patients > 65 years old), elevated blood pressure/worsening hypertension, elevated blood sugar/worsening diabetes control, worsening of bone density, elevated lipids/worsening triglycerides, cataract formation, weight gain Recommended using proton pump inhibitors (PPIs) for the duration of steroid use to reduce the risk of gastric ulcers and vitamin-D daily to reduce the risk of osteoporosis Labs checked: ?A1c, T spot, hepatitis-B and C serologies Pneumocystis jiroveci prophylaxis: ?Patient with risk factors including steroids greater than 50 mg for more than 30 days, age greater than 60 years, and lung involvement from underlying rheumatic disease requires prophylaxis and will be given so (4) Long-term current use of anakinra: Code(s): Z79.899 - Other 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 (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) drug therapy Plan: #Long-term Anakinra Risks and benefits of anakinra discussed with the patient in the management of there rheumatic disease Risks include: - injection site reactions, itching, headaches and rarely low white blood cell counts Benefits include: - improved management of the rheumatic disease Plan I spent 30 minutes reviewing the record and labs, taking a history, examining the patient, discussing the treatment plan and documenting in the medical record Coding Level of Care Code Est Pt Level 5 (69934) Complex EM visit Add On G2211 Diagnoses Seronegative rheumatoid arthritis M06.00 Antisynthetase syndrome D89.89 executive marketing assistant (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
[2024-11-24 10:34] VITALS: BP 130/74; PULSE 59; O2SAT 98; BMI 28.4
--- OUTSIDE RECORDS SUMMARY | 2024-11-24 12:15 | XMS_ITS | Clinical Summary ---
Author Organization [address] Address [address] [place] [address] Phone Care Team Providers Care Plate Take Out Worker Name Role Phone Unavailable Primary Care Provider [...] age to complete this topic Insurance MEDICARE [facility]
--- OUTSIDE RECORDS SUMMARY | 2024-11-24 12:15 | XMS_ITS | Encounter Summary ---
Author Organization [facility] Address [address] [place] [address] Care Team Providers Care Assistant Superintendent Name Role Phone Unavailable Primary Care Provider Unavailabl e Encounter Details Date Type Department Care Team (Late st Contact Info) Description 06/23/2024 Lab Requisition [facility] - Main Lab [address] [facility] [place] [address] Jose Boyd MD [address] [facility] [address] [place] [address] Benign essential microscopic hematuria Social History Tobacco [...] high grade urothelial carcinoma. 07/09/2024 10:33 AM [facility] Gross Description A. Urine, Voided, : Recd 1 TP cyto. 07/09/2024 10:33 AM [facility] Disclaimer Unless otherwise specified, all tissue is 10% NB formalin fixed and paraffin embedded. 07/09/2024 10:33 AM [facility] Tissue Urine specimen from urethra / Unknown 06/17/2024 06/23/2024 12:00 PM EST us Jose Boyd MD LAB PATHOLOGY ORDERABLES Fi nal Result [facility] ([facility] [address] [place] [address], [place] [phone] documented in this encounter Visit Diagnoses Diagnosis Benign essential microscopic hematuria documented in this encounter
== END 2024-11-24 10:59 | disposition home or self-care (01) ==
LOC: HO.RHE 10:28
PROVIDERS: PCP Nurse Practitioner Family; Visit Provider Student in an Organized Health Care Education/Training Program
DX: M06.09 Rheumatoid arthritis without rheumatoid factor, multiple sites (principal); D89.89 Other specified disorders involving the immune mechanism, not elsewhere classified; Z79.52 Long term (current) use of systemic steroids; Z79.899 Other long term (current) drug therapy
CPT/HCPCS: 99215; G2211

== ENCOUNTER → 2024-11-24 10:27 | Outpatient (BNVA) | payer MEDICARE, SELFPAY | PROVIDERS: PCP Nurse Practitioner Family; Visit Provider Student in an Organized Health Care Education/Training Program | DX: M06.00 Rheumatoid arthritis without rheumatoid factor, unspecified site (principal); D89.89 Other specified disorders involving the immune mechanism, not elsewhere classified; Z79.52 Long term (current) use of systemic steroids; Z79.899 Other long term (current) drug therapy | CPT/HCPCS: 99212 ==

== ENCOUNTER 2024-12-07 08:04 | Outpatient (AMB) | payer MEDICARE, SELFPAY ==
[2024-12-07 08:11] VITALS: BP 130/70; PULSE 58; O2SAT 97; BMI 28.1
--- NOTE | 2024-12-07 08:11 | A.OFFPC_ITS ---
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 Required: No Accompanied by: Self / Same As Patient Allergies morphine [MORPHINE] Allergy (Intermediate, Verified 12/07/24 08:42) HR DROPPED amlodipine Adverse Reaction (Intermediate, Verified 12/07/24 08:42) Depression azithromycin Adverse Reaction (Intermediate, Verified 12/07/24 08:42) Joint Pain clarithromycin [Prevpac] Adverse Reaction (Intermediate, Verified 12/07/24 08:42) depression (after taking for a few days) - includes most PPI lansoprazole [Prevpac] Adverse Reaction (Intermediate, Verified 12/07/24 08:42) depression (after taking for a few days) - includes most PPI ranitidine [Zantac] Adverse Reaction (Intermediate, Verified 12/07/24 08:42) depression (after taking for a few months) Prilosec Adverse Reaction (Intermediate, Uncoded 12/07/24 08:42) depression (after taking for a few days) - includes most PPI Medication List - Last Reconciled 12/07/24 by Rudolph Kumari, TAG PRESS OPERATOR- anakinra 100 mg (0.67 mL) subcut DAILY losartan 16 mg PO BID prednisone 1 mg PO DAILY prednisone 10 mg PO DAILY 30 days Tobacco use date assessed: 09/06/24 Fall risk assessment: No Falls in past year Last assessed Fall Risk: 12/07/24 Dental Screening Dental Screen Date: 09/06/24 HPI 3m follow up HPI Details Chief Complaint The patient presents for evaluation of hypertension and follow-up on medication management. History of Present Illness The patient is a 69-year-old male presenting with hypertension. His blood pressure has been managed with losartan, dosed at approximately 16 mg twice a day, and reports indicate that his blood pressure is generally stable although he experiences occasional fluctuations. These fluctuations have been linked to dietary sodium intake and the influence of previously taken Actemra. There is an ongoing management plan with nephrology, with follow-up scheduled in the near future. He also has a significant rheumatological history, specifically rheumatoid arthritis, currently being treated with a tapering dose of prednisone. 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 He is known to have hypercholesterolemia with recent lab work ordered to assess cholesterol levels. No symptoms of cardiovascular concern such as chest pain or shortness of breath were reported during the visit. Social History - No information regarding employment, h ousing, or education was discussed. - The patient has not reported any subst ance use or exercise routines. - The patient has dietary sensitivities, particularly to sodium intake, affecting his blood pressure. Health Maintenance - Ongoing management of hypertension, re gularly reviewed and monitored. - Follow-up blood work for hypercholeste rolemia. - Medication sensitivity discussed with emphasis on careful monitoring. Review of Systems - Cardiovascular: Denies chest pain or s hortness of breath. - Neurological: Denies dizziness or head aches. - Visual: Denies blurred vision. - General: Denies edema. Physical Exam General: Cooperative, healthy appearing, comfortable, no acute distress and well developed Orientation: Patient oriented x3 Limitations: No limitations Head: Normal to inspection Ears: Hearing grossly normal bilaterally Nose: Normal external nose present Face and sinus: Normal facial exam Eyes: Appearance normal, both eyes and all related structures Neck: Normal visual inspection and Yes full ROM Respiratory: Normal respiratory effort and able to speak in complete sentences. Clear to auscultation bilaterally Cardiovascular: Difficult to hear heart on auscultation, no S1 S2. No edema. No carotid bruits heard GI: Normal to inspection. Soft to palpation and nontender Skin: No rashes or lesions noted Neuro: Patient oriented x3 Extremities: Normal to inspection Results - Labs: Recent blood work including chol esterol panel, for follow-up. Plan The patient will continue with losartan as current hypertension management, closely watching for blood pressure spikes or drops. Upcoming nephrology follow- up remains critical to adjust therapy as needed. Hypercholesterolemia treatments will be guided by pending lab results, with dietary adjustments prioritized. Rheumatoid arthritis management continues with prednisone tapering as advised by rheumatology. Monitoring of past gastric lymphoma remains stable under oncology's supervision. Close observation for any further impact of past infusion treatments on blood pressure is advised. Discussion Notes We discussed the management of the patient's hypertension and the requirement for precise medication dosing due to his sensitivity. I explained the importance of continued nephrology follow-up for this context. We talked about the influences of sodium on his hypertension and the necessity to understand how dietary adjustments could help. Furthermore, I emphasized regular monitoring of his cholesterol levels to guide future interventions. For his rheumatoid arthritis, I explained the tapering protocol for prednisone, highlighting ongoing monitoring for any exacerbation of symptoms. All recommendations and precautions regarding his varied medical conditions were agreed upon. Patient Instructions - Continue taking losartan as prescribed . - Follow low-sodium diet to help manage blood pressure. - Attend scheduled nephrology appointmen t. - Monitor blood pressure regularly at [facility]. - Report any new symptoms or side effect s from medications. - Schedule and attend follow-up with onc ology and rheumatology as planned. - Await results of cholesterol panel and follow dietary guidance based on this. - Report any exacerbations of joint symp toms or new onset symptoms. 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 Pneumonia Pleural effusion ILD (interstitial lung disease) Right knee meniscal tear Abnormal biliary HIDA scan Kidney stones [place] of foot Bradycardia Left shoulder pain Normal colonoscopy (~08/2011) Lumbar spondylosis Impaired fasting glucose Dyslipidemia Benign essential hypertension History of gastric ulcer Gastritis Internal hemorrhoids Diverticulosis Benign prostatic hyperplasia Alopecia (capitis) totalis History of Lyme disease (~2009) History of hepatitis C Surgical History History of liver biopsy History of prostate surgery Status post left rotator cuff repair (~11/2020) History of esophagogastroduodenoscopy (EGD) (~06/2019) History of medial meniscus repair of left knee (~12/2016) Hx laparoscopic cholecystectomy (~10/2012) History of right inguinal hernia repair (~2011) History of surgery on right wrist Family History Father Gastric cancer Prostate cancer Family/Other Pancreas cancer Brother Skin cancer Social History Household Members: Other Household Members Other:: mother Housing: House Are you a primary restorative care technician to a significant other at home: No Do you presently have visiting nurse or other home services: No Alcohol intake: never Patient Tobacco Use Status: Never used Tobacco e-Cigarette/Vaping Use: Never Used Second Hand Smoke Exposure: No Advance Directives Date on File: 05/03/24 service: Yes Current occupational status: retired Cognitive needs: No Hearing needs: No Vision needs: Yes Questionnaire PHQ-9 Over the last 2 weeks, how often have you been bothered by any of the following problems? 1. Little interest or pleasure in doing things: not at all 2. Feeling down, depressed, or hopeless: not at all 3. Trouble falling or staying asleep, or sleeping too much: not at all 4. Feeling tired or having little energy: not at all 5. Poor appetite or overeating: not at all 6. Feeling bad about yourself - or that you are a failure or have let yourself or your family down: not at all 7. Trouble concentrating on things, such as reading the newspaper or watching television: not at all 8. Moving or speaking so slowly that other people could have noticed. Or the opposite - being so fidgety or restless that you have been moving around a lot more than usual: not at all 9. Thoughts that you would be better off or of hurting yourself in some way: not at all Total score: 0 Depression Screening Interpretation: Negative Depression Screening Done: Yes 87416 - PHQ-9 Billing: Yes Source: Developed by Drs. Joshua Crareon, Erika Gomez, Filipe Hein and colleagues, with an educational paige from [employer]. Thrive Questionnaire Date Thrive assessed: 12/07/24 I am a: Patient What is your living situation today?: I have a steady place to live Within the past 12 months, did the food you bought not last and you didn't have the money to get more?: I choose not to answer this question Within the past 12 months, did you worry whether your food would run out before you got money to buy more?: I choose not to answer this question Do you have trouble paying for medicines?: I choose not to answer this question Do you have trouble getting transportation to medical appointments?: I choose not to answer this question Do you have trouble paying your heating and electricity bill?: I choose not to answer this question Do you have trouble taking care of your child, family member or friend?: I choose not to answer this question Do you have trouble with day-to-day activities such as bathing, preparing meals, shopping, managing finances, etc.?: I choose not to answer this question Are you currently unemployed and looking for a job?: I choose not to answer this question Are you interested in more education?: I choose not to answer this question Please select the resources that you would like help with: None Currently or been in a relationship where the following occur: I choose not to answer THRIVE Score: 0 AUDIT C Alcohol Use Questionnaire (AUDIT-C) 1. How often do you have a drink containing alcohol?: Never 3. How often do you have six or more drinks on one occasion?: Never Total Score: 0 Score Reviewed/Action Taken: Yes BLAIR-7 AMB Questionnaire BLAIR-7 Date BLAIR - 7 assessed: 12/07/24 Feeling nervous, anxious, or on edge: 0 = Not at all Not being able to stop or control worryin = Not at all Worrying too much about different things: 0 = Not at all Trouble relaxin = Several days Being so restless that it is hard to sit still: 0 = Not at all Becoming easily annoyed or irritable: 0 = Not at all Feeling afraid as if something awful might happen: 0 = Not at all Total BLAIR-7 score (0-4 normal; 5-9 mild; 10-14 moderate; 15-21 severe): 1 Source: Developed by Drs. Joshua Carreon, Erika Gomez, Filipe Hein and colleagues, with an educational paige from [employer]. BLAIR-7 Assessment Billing BLAIR-7 Assessment Tool: BLAIR-7 Assessment 52639 Physical exam (Primary Care) Vital Signs: Last Vital Signs Pulse 58 12/07/24 08:11 BP 130/70 12/07/24 08:11 Pulse Ox 97 12/07/24 08:11 Oxygen Delivery Method Room Air 12/07/24 08:11 BMI result Body Mass Index 28.1 Tobacco/Smoking Status: Tobacco use Status Tobacco use date assessed 09/06/24 12/07/24 08:12 Patient Tobacco Use Status Never used Tobacco 12/07/24 08:12 e-Cigarette/Vaping Use Never Used 12/07/24 08:12 PHQ-9: PHQ-9 Score PHQ-9: Total score 0 12/07/24 08:12 Depression Screening Interpretation: Negative Thrive Assessment: Date of Thrive Assessment Date Thrive assessed 12/07/24 12/07/24 08:12 Currently or been in a relationship where the following occur: I choose not to answer Coding Level of Care Code Est Pt Level 3 (74645) Diagnoses Dyslipidemia E78.5 HTN (hypertension) I10 Rheumatoid arthritis M06.9 Additional Codes BLAIR-7 Assessment Billing - BLAIR-7 Assessment Tool: BLAIR-7 Assessment 06210 ([id number]) PHQ-9 - 82490 - PHQ-9 Billing: Yes ([id number]) Assessment & Plan Assessment & Plan (1) Dyslipidemia: Code(s): E78.5 - Hyperlipidemia, unspecified Category: Medical (2) HTN (hypertension): Code(s): I10 - Essential (primary) hypertension Category: Medical (3) Rheumatoid arthritis: Code(s): M06.9 - Rheumatoid arthritis, unspecified Category: Medical Plan . Orders: Orders Complete Blood Count Auto Diff Today E78.5 - Hyperlipidemia, unspecified, I10 - Essential (primary) hypertension Comprehensive [place]. Panel Fast Today E78.5 - Hyperlipidemia, unspecified, I10 - Essential (primary) hypertension TSH reflex Free T4 Today E78.5 - Hyperlipidemia, unspecified, I10 - Essential (primary) hypertension UA CC w/rflx Micro + Cult Today E78.5 - Hyperlipidemia, unspecified, I10 - Essential (primary) hypertension Lipid Panel Today E78.5 - Hyperlipidemia, unspecified, I10 - Essential (primary) hypertension
--- OUTSIDE RECORDS SUMMARY | 2024-12-07 08:12 | XMS_ITS | Encounter Summary ---
Author Organization [facility] Address [address] [place] [address] Care Team Providers Care Epic Director Name Role Phone Unavailable Primary Care Provider Unavailabl e Encounter Details Date Type Department Care Team (Late st Contact Info) Description 06/23/2024 Lab Requisition [facility] - Main Lab [address] [facility] [place] [address] Jose Boyd MD [address] [facility] [address] [place] [address] Benign essential microscopic hematuria Social History Tobacco [...] MD LAB PATHOLOGY ORDERABLES Fi nal Result [facility] ([facility] [address] [place] [address], [place] [phone] documented in this encounter Visit Diagnoses Diagnosis Benign essential microscopic hematuria documented in this encounter
--- OUTSIDE RECORDS SUMMARY | 2024-12-07 08:12 | XMS_ITS | Clinical Summary ---
Author Organization [address] Address [address] [place] [address] Phone Care Team Providers Care Beauty Parlor Cleaner Name Role Phone Unavailable Primary Care Provider [...] age to complete this topic Insurance MEDICARE [facility]
== END 2024-12-07 09:08 | disposition home or self-care (01) ==
LOC: HO.HMCC 08:05
PROVIDERS: PCP Student in an Organized Health Care Education/Training Program; Visit Provider Nurse Practitioner Family
DX: E78.5 Hyperlipidemia, unspecified (principal); I10 Essential (primary) hypertension; M06.9 Rheumatoid arthritis, unspecified

== ENCOUNTER → 2024-12-07 08:04 | Outpatient (BNVA) | payer MEDICARE, SELFPAY | PROVIDERS: PCP Student in an Organized Health Care Education/Training Program; Visit Provider Nurse Practitioner Family | DX: E78.5 Hyperlipidemia, unspecified (principal); I10 Essential (primary) hypertension; M06.9 Rheumatoid arthritis, unspecified | CPT/HCPCS: 96127; 99212 ==

== ENCOUNTER → 2024-12-16 10:26 | Outpatient (BNVA) | payer MEDICARE, SELFPAY | PROVIDERS: PCP Student in an Organized Health Care Education/Training Program; Visit Provider Internal Medicine Hypertension Specialist | DX: Z13.89 Encounter for screening for other disorder (principal) ==

== ENCOUNTER 2024-12-17 10:23 | Outpatient (AMB) | payer MEDICARE, SELFPAY ==
[2024-12-17 10:24] VITALS: BP 140/84; PULSE 57; O2SAT 98; BMI 28.2
--- NOTE | 2024-12-17 10:24 | HO.NEPHOV ---
Vital Signs 12/17/24 10:24 Height 5 ft 9 in Weight 191 lb BMI 28.2 BP 140/84 H Blood Pressure Location Lt brachial Position Sitting Pulse 57 Pulse Source Pulse Oximeter Pulse Oximetry (%) 98 Oxygen Delivery Method Room Air Intake Visit Reasons: 6 weeks fu/ Declined BPM Supervisor Tumblers Required: No Accompanied by: Self / Same As Patient Allergies morphine [MORPHINE] Allergy (Intermediate, Verified 12/17/24 10:25) HR DROPPED amlodipine Adverse Reaction (Intermediate, Verified 12/17/24 10:25) Depression azithromycin Adverse Reaction (Intermediate, Verified 12/17/24 10:25) Joint Pain clarithromycin [Prevpac] Adverse Reaction (Intermediate, Verified 12/17/24 10:25) depression (after taking for a few days) - includes most PPI lansoprazole [Prevpac] Adverse Reaction (Intermediate, Verified 12/17/24 10:25) depression (after taking for a few days) - includes most PPI ranitidine [Zantac] Adverse Reaction (Intermediate, Verified 12/17/24 10:25) depression (after taking for a few months) Prilosec Adverse Reaction (Intermediate, Uncoded 12/07/24 08:42) depression (after taking for a few days) - includes most PPI Medication List - Last Reconciled 12/17/24 by Murali Manning MD anakinra 100 mg (0.67 mL) subcut DAILY 30 days losartan 16 mg PO BID prednisone 1 mg PO DAILY prednisone 10 mg PO DAILY 30 days HPI Comments Details: Chad is a pleasant 69-year-old man who has been referred for evaluation of hypertension He has a complicated history. He has new onset hypertension. 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 He had an episode of flu and subsequently he was diagnosed with rheumatoid arthritis. He was treated with Rituxan and there was a spike in blood pressure. He was also treated with high dose of prednisone. The BP issues started Jul 29 after Actemra infusion. Less than a year ago he had an episode of COVID-19 infection which was rather severe. He developed respiratory issues. There was no pulmonary embolism on CTA. Since COVID-19 infection he has had wide fluctuations in the blood pressure. He was initially given amlodipine which caused depression. He was later switched to losartan which also gave depression. He is monitoring his blood pressure at home and tailoring the losartan accordingly. Currently he is on half a tablet of losartan 25 mg twice a day. He was also noted that his blood pressure always spikes when he eats salty diet. He was cut back on salt intake significantly. No history of any alcohol abuse or any drug abuse. 12/17/24 Says he feels depressed Thinks Losartan is making him depressed Unable to tolerated higher dose. Takes 16 mg - breaks up the pill and weighs the dose Has been checking his BP about 15- 20 times a day. Activity increases BP Anakinra was started December 10. 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 Pneumonia Pleural effusion ILD (interstitial lung disease) Right knee meniscal tear Abnormal biliary HIDA scan Kidney stones [place] of foot Bradycardia Left shoulder pain Normal colonoscopy (~08/2011) Lumbar spondylosis Impaired fasting glucose Dyslipidemia Benign essential hypertension History of gastric ulcer Gastritis Internal hemorrhoids Diverticulosis Benign prostatic hyperplasia Alopecia (capitis) totalis History of Lyme disease (~2009) History of hepatitis C Surgical History History of liver biopsy History of prostate surgery Status post left rotator cuff repair (~11/2020) History of esophagogastroduodenoscopy (EGD) (~06/2019) History of medial meniscus repair of left knee (~12/2016) Hx laparoscopic cholecystectomy (~10/2012) History of right inguinal hernia repair (~2011) History of surgery on right wrist Family History Father Gastric cancer Prostate cancer Family/Other Pancreas cancer Brother Skin cancer Social History Household Members: Other Household Members Other:: mother Housing: House Are you a primary medicare nurse to a significant other at home: No Do you presently have visiting nurse or other home services: No Alcohol intake: never Patient Tobacco Use Status: Never used Tobacco e-Cigarette/Vaping Use: Never Used Second Hand Smoke Exposure: No Advance Directives Date on File: 05/03/24 service: Yes Current occupational status: retired Cognitive needs: No Hearing needs: No Vision needs: Yes Physical Exam Vital Signs: Last Vital Signs Pulse 57 12/17/24 10:24 BP 140/84 H 12/17/24 10:24 Pulse Ox 98 12/17/24 10:24 Oxygen Delivery Method Room Air 12/17/24 10:24 BMI result Body Mass Index 28.2 Const General: comfortable; No acute distress Orientation/consciousness: patient oriented x3 Eyes General: appearance normal, both eyes and all related structures Visual Bansal: normal visual bansal by confrontation Neck Neck: Yes supple and Yes no JVD Resp Effort & Inspection: normal respiratory effort and respiratory effort not decreased Cardio Palpation: no palpable S3 and no palpable S4 Heart sounds: no rubs GI Inspection: Yes normal to inspection Palpation (GI): Soft to palpation Percussion: Yes normal to percussion Auscultation: normal bowel sounds General: Yes no CVA tenderness Back/Spine/Pelvis Back: no CVA tenderness Skin General skin exam: no petechiae and no purpura Neuro General: patient oriented x3 and no focal motor deficits Extrem General: No clubbing and No edema Results Reviewed Nephrology Results: Hgb 14.8 g/dl (14.0-18.0) 11/10/24 WBC 9.3 X10*3/uL (4.8-10.8) 11/10/24 Plt Count 174 X10*3/uL (160-400) 11/10/24 Sodium 137 mmol/L (135-145) 11/10/24 Potassium 4.4 mmol/L (3.3-5.1) 11/10/24 Chloride 108 mmol/L (96-108) 11/10/24 Carbon Dioxide 22 mmol/L (22-29) 11/10/24 BUN 23 mg/dL (9-16) H 11/10/24 Creatinine 0.99 mg/dL (0.5-1.4) 11/10/24 Calcium 9.7 mg/dL (8.4-10.2) 11/10/24 Assessment & Plan Assessment & Plan (1) HTN (hypertension): Code(s): I10 - Essential (primary) hypertension Category: Medical (2) 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 He has labile hypertension with significant spikes in blood pressure readings. Blood pressure spikes are usually associated with the increased salt intake. All these symptoms have started after the COVID-19 infection. BP spikes and salt sensitivty started after Actemra infusion on Jul Salt sensitive HTN Does not want to do 24 hour ambulatory blood pressure monitoring He has been monitoring BP about 15- 20 times and therfore , we can forego 24 hr ABPM at this time. serum aldosterone is normal. plasma renin activity elevated due to Losartan serum catecholamines normal. Encouraged him to stay on low-sodium diet like he is already on. At present there is no indication to change any of his medications. Offered to refer him to a tertiary center. . Coding Level of Care Code Est Pt Level 4 (40471) Diagnoses HTN (hypertension) I10 [id number]-78 syndrome U09.9
--- OUTSIDE RECORDS SUMMARY | 2024-12-17 10:55 | XMS_ITS | Encounter Summary ---
Author Organization [facility] Address [address] [place] [address] Care Team Providers Care Assistant Baseball Coach Name Role Phone Unavailable Primary Care Provider Unavailabl e Encounter Details Date Type Department Care Team (Late st Contact Info) Description 06/23/2024 Lab Requisition [facility] - Main Lab [address] [facility] [place] [address] Jose Boyd MD [address] [facility] [address] [place] [address] Benign essential microscopic hematuria Social History Tobacco [...] high grade urothelial carcinoma. 07/09/2024 10:33 AM [facility] Gross Description A. Urine, Voided, : Recd 1 TP cyto. 07/09/2024 10:33 AM [facility] Disclaimer Unless otherwise specified, all tissue is 10% NB formalin fixed and paraffin embedded. 07/09/2024 10:33 AM [facility] Tissue Urine specimen from urethra / Unknown 06/17/2024 06/23/2024 12:00 PM EST us Jose Boyd MD LAB PATHOLOGY ORDERABLES Fi nal Result [facility] ([facility]) [facility] [address] [place] [address], [place] [phone] documented in this encounter Visit Diagnoses Diagnosis Benign essential microscopic hematuria documented in this encounter
--- OUTSIDE RECORDS SUMMARY | 2024-12-17 10:55 | XMS_ITS | Clinical Summary ---
Author Organization [address] Address [address] [place] [address] Phone Care Team Providers Care Sole Layer Name Role Phone Unavailable Primary Care Provider [...] age to complete this topic Insurance MEDICARE [facility]
== END 2024-12-17 10:48 | disposition home or self-care (01) ==
LOC: HO.HKA 10:24
PROVIDERS: PCP Nurse Practitioner Family; Visit Provider Internal Medicine Hypertension Specialist
DX: I10 Essential (primary) hypertension (principal); U09.9 Post COVID-19 condition, unspecified
CPT/HCPCS: 99214

== ENCOUNTER → 2024-12-17 10:23 | Outpatient (BNVA) | payer MEDICARE, SELFPAY | PROVIDERS: PCP Nurse Practitioner Family; Visit Provider Internal Medicine Hypertension Specialist | DX: I10 Essential (primary) hypertension (principal); U09.9 Post COVID-19 condition, unspecified | CPT/HCPCS: 99212 ==

== ENCOUNTER 2025-01-18 13:33 | Outpatient (AMB) | payer MEDICARE, SELFPAY ==
[2025-01-18 13:39] VITALS: BP 138/72; PULSE 58; O2SAT 97; BMI 28.5
--- NOTE | 2025-01-18 13:39 | HO.NEPHOV_ITS ---
Vital Signs 01/18/25 13:39 Height 5 ft 9 in Weight 193 lb BMI 28.5 BP 138/72 Blood Pressure Location Rt brachial Position Sitting Pulse 58 Pulse Source Pulse Oximeter Pulse Oximetry (%) 97 Oxygen Delivery Method Room Air Intake Visit Reasons: FU/ Conf Technology Assistant Required: No Accompanied by: Self / Same As Patient Allergies morphine [MORPHINE] Allergy (Intermediate, Verified 01/18/25 13:41) HR DROPPED amlodipine Adverse Reaction (Intermediate, Verified 01/18/25 13:41) Depression azithromycin Adverse Reaction (Intermediate, Verified 01/18/25 13:41) Joint Pain clarithromycin [Prevpac] Adverse Reaction (Intermediate, Verified 01/18/25 13:41) depression (after taking for a few days) - includes most PPI lansoprazole [Prevpac] Adverse Reaction (Intermediate, Verified 01/18/25 13:41) depression (after taking for a few days) - includes most PPI ranitidine [Zantac] Adverse Reaction (Intermediate, Verified 01/18/25 13:41) depression (after taking for a few months) Prilosec Adverse Reaction (Intermediate, Uncoded 12/07/24 08:42) depression (after taking for a few days) - includes most PPI Medication List - Last Reconciled 01/18/25 by Murali Manning MD anakinra 100 mg (0.67 mL) subcut DAILY 30 days losartan 16 mg PO BID prednisone 1 mg PO DAILY prednisone 10 mg PO DAILY 30 days HPI Comments Details: Chad is a pleasant 69-year-old man who has been referred for evaluation of hypertension He has a complicated history. He has new onset hypertension. 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 He had an episode of flu and subsequently he was diagnosed with rheumatoid arthritis. He was treated with Rituxan and there was a spike in blood pressure. He was also treated with high dose of prednisone. The BP issues started Jul 29 after Actemra infusion. Less than a year ago he had an episode of COVID-19 infection which was rather severe. He developed respiratory issues. There was no pulmonary embolism on CTA. Since COVID-19 infection he has had wide fluctuations in the blood pressure. He was initially given amlodipine which caused depression. He was later switched to losartan which also gave depression. He is monitoring his blood pressure at home and tailoring the losartan accordingly. Currently he is on half a tablet of losartan 25 mg twice a day. He was also noted that his blood pressure always spikes when he eats salty diet. He was cut back on salt intake significantly. No history of any alcohol abuse or any drug abuse. 12/17/24 Says he feels depressed Thinks Losartan is making him depressed Unable to tolerated higher dose. Takes 16 mg - breaks up the pill and weighs the dose ; Has been checking his BP about 15- 20 times a day. Activity increases BP Anakinra was started December 10. 01/18/25 69-year-old male presenting with follow-up for blood pressure management. Following an Actemra administration on July 29, he experienced significant and prolonged elevations in blood pressure. Recently, however, he reports that his blood pressure has been stable for over a month, attributed to adherence to a low-sodium diet and a revised medication protocol including Losartan 10 mg daily, split into two doses, and the introduction of Anakinra around December 09. The patient has also begun tapering his prednisone dose under medical guidance. His dietary adjustments have been positively received, allowing reintroduction of certain foods. At present, he has not experienced any concerning hypertension episodes, indicating successful management. 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 Pneumonia Pleural effusion ILD (interstitial lung disease) Right knee meniscal tear Abnormal biliary HIDA scan Kidney stones [place] of foot Bradycardia Left shoulder pain Normal colonoscopy (~08/2011) Lumbar spondylosis Impaired fasting glucose Dyslipidemia Benign essential hypertension History of gastric ulcer Gastritis Internal hemorrhoids Diverticulosis Benign prostatic hyperplasia Alopecia (capitis) totalis History of Lyme disease (~2009) History of hepatitis C Surgical History History of liver biopsy History of prostate surgery Status post left rotator cuff repair (~11/2020) History of esophagogastroduodenoscopy (EGD) (~06/2019) History of medial meniscus repair of left knee (~12/2016) Hx laparoscopic cholecystectomy (~10/2012) History of right inguinal hernia repair (~2011) History of surgery on right wrist Family History Father Gastric cancer Prostate cancer Family/Other Pancreas cancer Brother Skin cancer Social History Household Members: Other Household Members Other:: mother Housing: House Are you a primary child care leader to a significant other at home: No Do you presently have visiting nurse or other home services: No Alcohol intake: never Patient Tobacco Use Status: Never used Tobacco e-Cigarette/Vaping Use: Never Used Second Hand Smoke Exposure: No Advance Directives Date on File: 05/03/24 service: Yes Current occupational status: retired Cognitive needs: No Hearing needs: No Vision needs: Yes Physical Exam Vital Signs: Last Vital Signs Pulse 58 01/18/25 13:39 BP 138/72 01/18/25 13:39 Pulse Ox 97 01/18/25 13:39 Oxygen Delivery Method Room Air 01/18/25 13:39 BMI result Body Mass Index 28.5 Const General: comfortable; No acute distress Orientation/consciousness: patient oriented x3 Eyes General: appearance normal, both eyes and all related structures Visual Bansal: normal visual bansal by confrontation Neck Neck: Yes supple and Yes no JVD Resp Effort & Inspection: normal respiratory effort and respiratory effort not decreased Cardio Palpation: no palpable S3 and no palpable S4 Heart sounds: no rubs GI Inspection: Yes normal to inspection Palpation (GI): Soft to palpation Percussion: Yes normal to percussion Auscultation: normal bowel sounds General: Yes no CVA tenderness Back/Spine/Pelvis Back: no CVA tenderness Skin General skin exam: no petechiae and no purpura Neuro General: patient oriented x3 and no focal motor deficits Extrem General: No clubbing and No edema Results Reviewed Nephrology Results: No Data to Display Assessment & Plan Assessment & Plan (1) HTN (hypertension): Code(s): I10 - Essential (primary) hypertension Category: Medical (2) 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 He has labile hypertension with significant spikes in blood pressure readings. Blood pressure spikes are usually associated with the increased salt intake. All these symptoms have started after the COVID-19 infection. BP spikes and salt sensitivty started after Actemra infusion on Jul Salt sensitive HTN Does not want to do 24 hour ambulatory blood pressure monitoring He has been monitoring BP about 15- 20 times and therfore , we can forego 24 hr ABPM at this time. serum aldosterone is normal. plasma renin activity elevated due to Losartan serum catecholamines normal. Encouraged him to stay on low-sodium diet like he is already on. At present there is no indication to change any of his medications. Offered to refer him to a tertiary center. No changes were made today . Orders: Orders Basic Metabolic Panel 4 Months I10 - Essential (primary) hypertension Coding Level of Care Code Est Pt Level 4 (56598) Diagnoses HTN (hypertension) I10 [id number]-09 syndrome U09.9
--- OUTSIDE RECORDS SUMMARY | 2025-01-18 16:01 | XMS_ITS | Clinical Summary ---
Author Organization [address] Address [address] [place] [address] Phone Care Team Providers Care Real Estate Administrative Assistant Name Role Phone Unavailable Primary Care Provider [...] age to complete this topic Insurance MEDICARE [facility]
== END 2025-01-18 13:50 | disposition home or self-care (01) ==
LOC: HO.HKA 13:33
PROVIDERS: PCP Nurse Practitioner Family; Visit Provider Internal Medicine Hypertension Specialist
DX: I10 Essential (primary) hypertension (principal); U09.9 Post COVID-19 condition, unspecified
CPT/HCPCS: 99214

== ENCOUNTER → 2025-01-18 13:33 | Outpatient (BNVA) | payer MEDICARE, SELFPAY | PROVIDERS: PCP Nurse Practitioner Family; Visit Provider Internal Medicine Hypertension Specialist | DX: I10 Essential (primary) hypertension (principal); U09.9 Post COVID-19 condition, unspecified | CPT/HCPCS: 99212 ==

== ENCOUNTER 2025-02-21 08:14 | Outpatient (REF) | payer MEDICARE, SELFPAY ==
--- OUTSIDE RECORDS SUMMARY | 2025-02-21 08:16 | XMS_ITS | Clinical Summary ---
Author Organization [address] Address [address] [place] [address] Phone Care Team Providers Care Pug Mill Operator Name Role Phone Unavailable Primary Care Provider [...] Influencers of Health Screening 06/23/2024 Influenza Vaccine (#1) 2025 RSV Immunization Adult Patie nts (1 [...] age to complete this topic Insurance MEDICARE [facility]
[2025-02-21 09:39] LABS: MANUAL DIFF FLAG NO
[2025-02-21 09:49] LABS: Hematocrit 43.6 % (42.0-52.0); Hemoglobin 14.8 g/dl (14.0-18.0); Imm Gran Abs Auto 0.02 X10*3/uL (0.00-0.03); Imm Gran Pct Auto 0.3 % (0.0-0.4); Lymphocytes Absolute Auto 1.0 X10*3/uL (1.2-4.9); Mean Corpuscular HGB Conc 33.9 g/dl (31.0-36.0); Mean Corpuscular Hemoglobin 31.2 pg (27.0-33.0); Mean Corpuscular Volume 91.8 fL (80.0-98.0); NRBC Abs Auto 0.000 X10*3/uL (0.0-0.012); NRBC Pct Auto 0.0 /100WBC (0.0-0.2); Platelet Count 151 X10*3/uL (160-400); Red Blood Count 4.75 X10*6/uL (4.60-5.80); White Blood Count 7.4 X10*3/uL (4.8-10.8)
[2025-02-21 09:57] LABS: Alanine Aminotransferase 32 U/L (0-40); Albumin Level 4.5 g/dL (3.5-5.0); Alkaline Phosphatase 119 U/L (39-117); Anion Gap 12 (12-20); Aspartate Amino Transferase 37 U/L (5-37); Blood Urea Nitrogen 20 mg/dL (9-16); Calcium 9.1 mg/dL (8.4-10.2); Carbon Dioxide 22 mmol/L (22-29); Chloride 112 mmol/L (96-108); Estimated Glomerular Filt Rate > 60; Potassium 4.2 mmol/L (3.3-5.1); Sodium 142 mmol/L (135-145); Total Protein 6.6 g/dL (6.5-8.0)
[2025-02-21 10:24] LABS: HBS Num1 0.42 mIU/mL (0-7.99); HBc Num1 0.07 S/CO (0.00-0.79); HBsAGNum1 0.39 S/CO (0.00-0.99); Hepatitis A Antibody IgM 0.20 Index (0-0.79); Hepatitis B Surface Antigen Negative (Negative); ~HepC Num1 3.32 S/CO (0.00-0.79); ~Hepatitis A Antibody IgM Nonreactive (Nonreactive); ~Hepatitis B Surface Antibody NONREACTIVE (Nonreactive); ~Hepatitis C Antibody Reactive (Nonreactive)
[2025-02-24 06:53] LABS: TS Negative Control Passed; TS Panel A 0; TS Panel B 0; TS Positive Control Passed; TSpotTB Negative (Negative)
== END 2025-02-21 08:15 | disposition home or self-care (01) ==
LOC: HO.10HDL 08:14
PROVIDERS: Visit Provider Student in an Organized Health Care Education/Training Program
DX: Z01.84 Encounter for antibody response examination (principal); Z11.1 Encounter for screening for respiratory tuberculosis; M06.00 Rheumatoid arthritis without rheumatoid factor, unspecified site
CPT/HCPCS: 36415; 80053; 85025; 85652; 86140; 86481; 86704; 86706; 86709; 86803; 87340

== ENCOUNTER 2025-03-02 08:25 | Outpatient (AMB) | payer MEDICARE, SELFPAY ==
[2025-03-02 08:34] VITALS: BP 132/78; PULSE 52; O2SAT 96; BMI 27.6
--- NOTE | 2025-03-02 08:34 | A.OFFVIS_ITS ---
Vital Signs 03/02/25 08:34 Height 5 ft 9 in Weight 187 lb 2.759 oz BMI 27.6 BP 132/78 Blood Pressure Location Lt brachial Position Sitting Pulse 52 Pulse Source Pulse Oximeter Pulse Oximetry (%) 96 Oxygen Delivery Method Room Air Intake Visit Reasons: RA-ILD Intake Note: Patient presents for follow up on RA, ILD, and lab review. Patient is requesting 1 mg Prednisone today. Allergies morphine (MORPHINE) Allergy (Intermediate, Verified 03/02/25 08:35) HR DROPPED amlodipine Adverse Reaction (Intermediate, Verified 03/02/25 08:35) Depression azithromycin Adverse Reaction (Intermediate, Verified 03/02/25 08:35) Joint Pain clarithromycin (Prevpac) Adverse Reaction (Intermediate, Verified 03/02/25 08:35) depression (after taking for a few days) - includes most PPI lansoprazole (Prevpac) Adverse Reaction (Intermediate, Verified 03/02/25 08:35) depression (after taking for a few days) - includes most PPI ranitidine (Zantac) Adverse Reaction (Intermediate, Verified 03/02/25 08:35) depression (after taking for a few months) Prilosec Adverse Reaction (Intermediate, Uncoded 03/02/25 08:35) depression (after taking for a few days) - includes most PPI Medication List - Last Reconciled 03/02/25 by Azucena Rodriguez MD anakinra 100 mg (0.67 mL) subcut DAILY 30 days losartan 25 mg PO DAILY prednisone 9 mg PO DAILY prednisone 1 mg PO DAILY HPI Comments Details: Patient is a 69-year-old male with alopecia universalis, 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 complicated by limited right wrist extens ion, history of gastric lymphoma status post radiation therapy and seronegative rheumatoid arthritis with ILD (cryptogenic organizing pneumonia) presents today for follow up Interval History: Patient last seen 11/24/24 with me - Decreased his prednisone from 15 mg to 12.5 mg and has been noticing more aches but overall continues to do well - Satrted on Anakinra as steroid sparing Today - Down to 8.5mg prednisone - Feel some aches in his feet but thinks this is related to his OA - Tolerating Anakinra Rheumatologic History: Initially evaluated 12/13/2022 for polyarthritis. Subsequently found to have recurrent lung infiltrates that was diagnosed as cryptogenic organizing pneumonia. Given the arthritis and lung findings he was evaluated for an underlying autoimmune disease which ultimately revealed +PL-7, +dsDNA, +NT5C1A Ab. RF, CCP and JESSICA negative He was ultimately diagnosed with seronegative rheumatoid arthritis complicated by RA ILD and was started on rituximab infusions Patient received 1 dose of rituximab 03/25. 2 weeks after he was diagnosed with COVID. Few days later his condition worsened and he was admitted to the hosp ital for a few days, had to have oxygen supplementation (ARDS 2/2 COVID). On discharge patient needed some oxygen. He was also treated with prednisone taper at that time. Weaned off O2 08/2024 Current Rheumatology Medication(s): Prednisone 8.5mg daily Anakinra 100mg SC daily [facility] Medical History (Updated 02/10/25 @ 09:34 by Elizabeth Morrison NP) Rheumatoid arthritis assisted (current) use of systemic steroids [id number] syndrome Pneumonia Pleural effusion ILD (interstitial lung disease) Right knee meniscal tear Abnormal biliary HIDA scan Kidney stones [place] of foot Bradycardia Left shoulder pain Normal colonoscopy (~08/2011) Lumbar spondylosis Impaired fasting glucose Dyslipidemia Benign essential hypertension History of gastric ulcer Gastritis Internal hemorrhoids Diverticulosis Benign prostatic hyperplasia Alopecia (capitis) totalis History of Lyme disease (~2009) History of hepatitis C Surgical History History of liver biopsy History of prostate surgery Status post left rotator cuff repair (~11/2020) History of esophagogastroduodenoscopy (EGD) (~06/2019) History of medial meniscus repair of left knee (~12/2016) Hx laparoscopic cholecystectomy (~10/2012) History of right inguinal hernia repair (~2011) History of surgery on right wrist Family History Father Gastric cancer Prostate cancer Family/Other Pancreas cancer Brother Skin cancer Social History Household Members: Other Household Members Other:: mother Housing: House Are you a primary child care provider to a significant other at home: No Do you presently have visiting nurse or other home services: No Alcohol intake: never Patient Tobacco Use Status: Never used Tobacco e-Cigarette/Vaping Use: Never Used Second Hand Smoke Exposure: No Advance Directives Date on File: 05/03/24 service: Yes Current occupational status: retired Cognitive needs: No Hearing needs: No Vision needs: Yes Physical Exam Exam Exam: Vital signs reviewed Physical Examination CONSTITUITIONAL Patient alert and cooperative. Well appearing and in no apparent painful distress HEENT Conjunctiva and sclera clear. No lymphadenopathy. CHEST/RESPIRATORY SYSTEM Normal respiratory effort and able to speak in complete sentences. Clear to auscultation bilaterally. No crackles, rales, rhonchi, wheezes heard. CARDIAC SYSTEM Regular rate and rhythm. S1 and S2 heard no murmurs. Radial pulses intact bilaterally MSK Hands * Right Hand: Able to make a fist. No swelling or tenderness to palpation of these joints. * Left Hand: Able to make a fist. No swelling or tenderness to palpation of these joints. * Herbedens nodes noted bilaterally Wrists * Right Wrist: Decreased ROM to extension and flexion. about 20 degrees of extension. No swelling or TTP * Left Wrist: Full ROM. 70 degrees of wrist flexion, 80 degrees of wrist extension. No swelling or TTP Elbows * Right Elbow: Full ROM. No swelling or TTP. No TTP of the medial and lateral epicondyles * Left Elbow: Full ROM. No swelling or TTP. No TTP of the medial and lateral epicondyles Shoulders * Right shoulder: Full ROM. No swelling noted. No TTP of the AC joint, subacromial bursa or posterior shoulder * Left shoulder: Full ROM. No swelling noted. No TTP of the AC joint, subacromial bursa or posterior shoulder * Crepitations felt bilaterally Knees * Right knee: Full ROM. No swelling noted. No TTP of the knee joint lie or pes a nserine bursa * Left knee: Full ROM. No swelling noted. No TTP of the knee joint lie or pes anserine bursa. * Crepitations felt bilaterally Ankles * Right ankle: Good ankle dorsiflexion and plantar flexion. No swelling. No TTP of the ankle joint * Left ankle: Good ankle dorsiflexion and plantar flexion. No swelling. No TTP of the ankle joint Feet * Right foot: Negative squeeze test * Left foot: Negative squeeze test Tender points? * No tenderness to palpation of the bilateral trapezius, supraspinatus, anterior costochondral junctions, bilateral suboccipital muscle insertions SKIN No rashes Vital Signs: Last Vital Signs Pulse 52 03/02/25 08:34 BP 132/78 03/02/25 08:34 Pulse Ox 96 03/02/25 08:34 Oxygen Delivery Method Room Air 03/02/25 08:34 BMI result Body Mass Index 27.6 Results Reviewed Results Reviewed: Laboratory Tests 02/21/25 08:20 WBC 7.4 RBC 4.75 Hgb 14.8 Hct 43.6 Plt Count 151 L ESR 1 Sodium 142 Potassium 4.2 Chloride 112 H Carbon Dioxide 22 BUN 20 H Creatinine 1.11 AST 37 ALT 32 C-Reactive Protein < 0.10 Immunology Labs 12/11/22 03/19/23 08/27/23 09:31 08:50 11:20 Rheumatoid Factor < 13.0 Cycl Citrul Peptide IgG <[address]-7 Antibody 15 H Laboratory Tests 10/21/24 02/21/25 09:20 08:20 Hep Bs Antigen Negative Hep Bs Antibody NONREACTIVE Hep B Core Total Ab Nonreactive Hepatitis C Ab (EIA) Reactive H Hep C Viral Load <15 NOT DETECTED Hep C Viral Load Log <1.18 NOT DETECTED TB Test (T-Spot) Com Negative Assessment & Plan Assessment & Plan (1) Seronegative rheumatoid arthritis: Comment: RTX 1 g X 2 doses 07/2023 1 dose 03/2024 followed by multiple infections Code(s): M06.00 - Rheumatoid arthritis without rheumatoid factor, unspecified site Category: Medical Plan: #Seronegative RA Patient ia a 69 y.o. 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 Inflammatory arthritis is a component of antisynthetase syndrome as well. The last CK was checked back in 2022 and it was low at 23. We will still keep this in the back of our mind as this could be evolving antisynthetase syndrome with inflammatory arthritis mimicking rheumatoid arthritis. Anakinra has been used for antisynthetase syndrome as well so this would be a good agent to place the patient on Campochiaro C, Orchard N, Diomedes G, Zacarias G, Koko A, Caitlin Richey, Edda Le. Anakinra for the Treatment of Antisynthetase Syndrome: A Monocentric Case Series and a Systematic Literature Review. J Rheumatol. 2022;50(1):151- 153. doi: [email or web address]/[email or web address]. Epub 2021Apr 25. PMID: [id number]. (3) assisted (current) use of systemic steroids: Code(s): Z79.52 - intermediate designer (current) use of systemic steroids Category: Medical Plan: #Long-term Use of Steroids Discussed with patient the risks and benefits of steroid for managing the rheumatic condition Benefits include: - Reduced pain, improved mobility, increased participation in activities, and decreased progression of disease Risks include: - GI upset, potential ultrasound worsening or formation (especially in patients > 65 years old), elevated blood pressure/worsening hypertension, elevated blood sugar/worsening diabetes control, worsening of bone density, elevated lipids/worsening triglycerides, cataract formation, weight gain Recommended using proton pump inhibitors (PPIs) for the duration of steroid use to reduce the risk of gastric ulcers and vitamin-D daily to reduce the risk of osteoporosis Labs checked: ?A1c, T spot, hepatitis-B and C serologies Pneumocystis jiroveci prophylaxis: ?Patient with risk factors including steroids greater than 50 mg for more than 30 days, age greater than 60 years, and lung involvement from underlying rheumatic disease requires prophylaxis and will be given so (4) Long-term current use of anakinra: Code(s): Z79.899 - Other intermodal dispatcher (current) drug therapy Plan: #Long-term Anakinra Risks and benefits of anakinra discussed with the patient in the management of there rheumatic disease Risks include: - injection site reactions, itching, headaches and rarely low white blood cell counts Benefits include: - improved management of the rheumatic disease Plan I spent 30 minutes reviewing the record and labs, taking a history, examining the patient, discussing the treatment plan and documenting in the medical record Medications: Refilled prednisone 1 mg PO DAILY 90 tabs 0RF M06.9 - Rheumatoid arthritis, unspecified Coding Level of Care Code Est Pt Level 4 (02392) Complex EM visit Add On G2211 Diagnoses Seronegative rheumatoid arthritis M06.00 Antisynthetase syndrome D89.89 assisted (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
--- OUTSIDE RECORDS SUMMARY | 2025-03-02 08:39 | XMS_ITS | Clinical Summary ---
Author Organization [address] Address [address] [place] [address] Phone Care Team Providers Care Ux Interaction Designer Name Role Phone Unavailable Primary Care Provider [...] Panel) 06/23/2024 Colorectal Cancer Screening: Colonoscopy 06/23/2024 Falls Risk Assessment 06/23/2024 Hepatitis C Screening 06/23/2024 Medicare Annual Wellness Visit 06/23/2024 Social Influencers of Health Screening 06/23/2024 Depression Screening 08/11/2024 Influenza Vaccine (#1) 2025 RSV Immunization Adult [...] to complete this topic Insurance [facility]ICARE [facility]
--- OUTSIDE RECORDS SUMMARY | 2025-03-02 08:39 | XMS_ITS | Clinical Summary ---
Author Organization [facility] Address [address] [place] [address] Phone Care Team Providers Care Seo Manager Name Role Phone Rudolph Kumari NP Primary Care Provider + Allergies Active Allergy Reactions Criticality Noted Date Comments Amoxicillin 03/01/2022 Clarithromycin 03/01/2022 Coffee 03/01/2022 hypertension Morphine Sulfate 03/01/2022 Increased bradycardia Famotidine 03/01/2022 depression Omeprazole 03/01/2022 Severe depression Ranitidine Hcl 03/01/2022 depression Medications No known medications Active Problems Problem Noted Date Diagnosed Date Gastric lymphoma 03/03/2022 Family History Medical History Relation Comments Cancer Brother Cancer Father Relation Status Comments Brother Father Social History Tobacco Use Types Packs/Day Years Used Date Smoking Tobacco: Never Smokeless Tobacco: Never Alcohol Use Standard Drinks/Week Comments Not Currently 0 (1 standard drink = 0.6 oz pur e alcohol) Education Answer Date Recorded Are you interested in more education? Not on barrera e 12/05/2022 Are you concerned about learning? Not on file 12/05/2022 No 12/05/2022 No 12/05/2022 Digital Access Answer Date Recorded No 01/06/2023 No 01/06/2023 No 01/06/2023 Reliable internet access at home? Not on file 01/06/2023 Device with a working camera? Not on file Sex and Gender Information Value Date Recorded Sex Assigned at Not on file Legal Sex Male 7:31 PM EST Gender Identity Not on file Sexual Orientation Not on file Last Filed Vital Signs Vital Sign Reading Time Taken Comments Blood Pressure 115/71 04/23/2022 11:39 AM EDT Pulse 52 04/23/2022 11:39 AM EDT Temperature 35.9 C (96.7 F) 04/23/2022 11:39 AM EDT Respiratory Rate 18 04/23/2022 11:39 AM EDT Oxygen Saturation 96% 04/23/2022 11:39 AM EDT Inhaled Oxygen Concentration - - Weight 73.1 kg (161 lb 1.6 oz) 04/23/2022 11:39 AM EDT Height 175.3 cm (5' 9 ) 03/01/2022 9:56 AM EDT Body Mass Index 23.79 03/01/2022 9:56 AM EDT Plan of Treatment Health Maintenance Due Date Last Done Comments LIPID PANEL 1953 DEPRESSION SCREENING 1965 HEPATITIS C SCREENING 1971 ZOSTER VACCINES (1 of 2) 1972 COLOGUARD 1998 COLONOSCOPY 1998 COLORECTAL CANCER SCREENING 1998 FIT TEST 1998 FOBT 1998 SIGMOIDOSCOPY 1998 VIRTUAL COLONOSCOPY 1998 RSV VACCINE (1 - Risk 60-74 years 1-dose series) 2013 COVID-19 VACCINE (2 - 2023-2 5 season) 2024 10/03/2020 Adult Td,Tdap Booster 07/23/2026 07/23/2016 PNEUMOCOCCAL VACCINES (50+ years) Completed 04/29/2020, 04/06/2019, 12/20/2011 SMOKING STATUS SCREENING (On ce After 26 Yrs) Completed 03/01/2022 HEPATITIS A VACCINES Aged Out No long er eligible based on patient's age to complete this topic HIB VACCINES Aged Out No longer eligi ble based on patient's age to complete this topic MENINGOCOCCAL VACCINES (ACWY) Aged Out No longer eligible based on patient's age to complete this topic MENINGOCOCCAL VACCINES (B) Aged Out N o longer eligible based on patient's age to complete this topic Medical Devices Not on file Insurance BLUE CROSS MEDEX SUPPLEMENT MEDICARE PART A & B Meludia CROSS MEDEX SUPPLEMENT MEDICARE PART A & B Meludia [employer] MEDEX SUPPLEMENT MEDICARE PART A & B [employer] MEDEX SUPPLEMENT MEDICARE PART A & B [employer] MEDEX SUPPLEMENT MEDICARE PART A & B [employer] MEDEX SUPPLEMENT MEDICARE PART A & B [employer] MEDEX SUPPLEMENT MEDICARE PART A & B [employer] MEDEX SUPPLEMENT MEDICARE PART A & B [employer] MEDEX SUPPLEMENT MEDICARE PART A & B Care Teams Seo Manager Relationship Specialty Start Date End Date Rudolph Kumari NP [address] [facility] [place] [address] [email or web address] PCP - General Family Medicine 03/14/22 Additional Source Comments The information contained in this document represents components of the legal health record. It is not the complete legal health record.[facility]
== END 2025-03-02 09:03 | disposition home or self-care (01) ==
LOC: HO.RHE 08:25
PROVIDERS: PCP Nurse Practitioner Family; Visit Provider Student in an Organized Health Care Education/Training Program
DX: M06.00 Rheumatoid arthritis without rheumatoid factor, unspecified site (principal); D89.89 Other specified disorders involving the immune mechanism, not elsewhere classified; Z79.52 Long term (current) use of systemic steroids; Z79.899 Other long term (current) drug therapy
CPT/HCPCS: 99214; G2211

== ENCOUNTER → 2025-03-02 08:25 | Outpatient (BNVA) | payer MEDICARE, SELFPAY | PROVIDERS: PCP Nurse Practitioner Family; Visit Provider Student in an Organized Health Care Education/Training Program | DX: D89.89 Other specified disorders involving the immune mechanism, not elsewhere classified (principal); M06.00 Rheumatoid arthritis without rheumatoid factor, unspecified site; Z79.52 Long term (current) use of systemic steroids; Z79.899 Other long term (current) drug therapy | CPT/HCPCS: 99212 ==

== ENCOUNTER 2025-04-04 08:26 | Emergency (ER) | payer MEDICARE, SELFPAY ==
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
[2025-04-04 08:30] VITALS: BP 162/76; PULSE 62; RESP 16; TEMP 36.2; O2SAT 98; BMI 27.0
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
--- NOTE | 2025-04-04 08:44 | PC.NURSE ---
Pt A&O X4 able to move all extremities well, severe muscle spasms in back atthis time. Provider in to assess pt and aware. Pt connected to 1/2 monitor. HR 50's which pt states is baseline.
[2025-04-04 10:00] VITALS: BP 143/71; PULSE 90; RESP 18; TEMP 36.7; O2SAT 96
--- NOTE | 2025-04-04 10:34 | PC.NURSE ---
Pt states feeling much better- able to dress self and ambulate without difficulty. Pain decreased and spasms have subsided.
--- OUTSIDE RECORDS SUMMARY | 2025-04-04 10:34 | XMS_ITS | Clinical Summary ---
Author Organization [address] Address [address] [place] [address] Phone Care Team Providers Care Curing Room Supervisor Name Role Phone Unavailable Primary Care [...] age to complete this topic Insurance MEDICARE [facility]
--- OUTSIDE RECORDS SUMMARY | 2025-04-04 10:34 | XMS_ITS | Clinical Summary ---
Author Organization [facility] Address [address] [place] [id number] Phone Care Team Providers Care Personal Care Worker Name Role Phone Rudolph Kumari NP Primary [...] MEDEX SUPPLEMENT MEDICARE PART A & B [employer] MEDEX SUPPLEMENT MEDICARE PART A & B [employer] MEDEX SUPPLEMENT MEDICARE PART A & B [employer] MEDEX SUPPLEMENT MEDICARE PART A & B [employer] MEDEX SUPPLEMENT MEDICARE PART A & B [employer] MEDEX SUPPLEMENT MEDICARE PART A & B [employer] MEDEX SUPPLEMENT MEDICARE PART A & B BLUE [employer] MEDEX SUPPLEMENT MEDICARE PART A & [place] [address] [place] [address] [employer] MEDEX SUPPLEMENT MEDICARE PART A & B Care Teams Personal Care Worker Relationship Specialty Start Date End Date Rudolph Kumari NP [address] [facility] [place] [address] PCP - General Family Medicine 03/14/22 Additional Source Comments The information contained in this document represents components of the legal health record. It is not the complete legal health record.[facility]
[2025-04-04 10:43] VITALS: BP 151/70; PULSE 78; RESP 15; TEMP 36.6; O2SAT 98
[2025-04-04 11:09] VITALS: BP 151/70; PULSE 78; RESP 15; TEMP 36.6; O2SAT 98
== END 2025-04-04 11:10 | disposition home or self-care (01) ==
PROVIDERS: Emergency Provider Emergency Medicine; PCP Nurse Practitioner Family
DX: S60.211A Contusion of right wrist, initial encounter (principal); S30.0XXA Contusion of lower back and pelvis, initial encounter; S60.221A Contusion of right hand, initial encounter; V19.3XXA Pedal cyclist (driver) (passenger) injured in unspecified nontraffic accident, initial encounter; Y93.55 Activity, bike riding; Y92.410 Unspecified street and highway as the place of occurrence of the external cause; Y99.8 Other external cause status; Z79.899 Other long term (current) drug therapy
CPT/HCPCS: 72100; 73110; 73130; 99283; 99284

== ENCOUNTER → 2025-04-04 08:41 | Outpatient (BNV) | payer MEDICARE, SELFPAY | PROVIDERS: Emergency Provider Emergency Medicine; PCP Nurse Practitioner Family; Visit Provider Radiology Diagnostic Radiology | DX: M54.50 Low back pain, unspecified (principal); M47.816 Spondylosis without myelopathy or radiculopathy, lumbar region; M79.641 Pain in right hand; M25.531 Pain in right wrist; V18.0XXA Pedal cycle driver injured in noncollision transport accident in nontraffic accident, initial encounter | CPT/HCPCS: 72100; 73110; 73130 ==

== ENCOUNTER 2025-04-07 06:12 | Outpatient (REF) | payer MEDICARE, SELFPAY ==
--- OUTSIDE RECORDS SUMMARY | 2025-04-07 06:15 | XMS_ITS | Clinical Summary ---
Author Organization [address] Address [address] [place] [address] Phone Care Team Providers Care Senior Software Tester Name Role Phone Unavailable Primary Care Provider [...] age to complete this topic Insurance [facility]ICARE [facility]
--- OUTSIDE RECORDS SUMMARY | 2025-04-07 06:15 | XMS_ITS | Encounter Summary ---
Author Organization [facility] Address [address] [place] [address] Care Team Providers Care Food Service Worker Name Role Phone Unavailable Primary Care Provider Unavailabl e Encounter Details Date Type Department Care Team (Late st Contact Info) Description 06/23/2024 Lab Requisition [facility] [address] [facility] [place] [address] Jose Boyd MD [address] [facility] [address] [place] [address] Benign essential microscopic hematuria Social History Tobacco [...] high grade urothelial carcinoma. 07/09/2024 10:33 AM [facility] Gross Description A. Urine, Voided, : Recd 1 TP cyto. 07/09/2024 10:33 AM [facility] Disclaimer Unless otherwise specified, all tissue is 10% NB formalin fixed and paraffin embedded. 07/09/2024 10:33 AM [facility] Tissue Urine specimen from urethra / Unknown 06/17/2024 06/23/2024 12:00 PM EST us Jose Boyd MD LAB PATHOLOGY ORDERABLES Fi nal Result [facility] ([facility]) [facility] [address] [place] [address], [place] [phone] documented in this encounter Visit Diagnoses Diagnosis Benign essential microscopic hematuria documented in this encounter
--- OUTSIDE RECORDS SUMMARY | 2025-04-07 06:15 | XMS_ITS | Clinical Summary ---
Author Organization [facility] Address [address] [place] [phone] Phone Care Team Providers Care Rubber Chemist Name Role Phone Rudolph Kumari NP Primary [...] MEDEX SUPPLEMENT MEDICARE PART A & B [employer] CROSS MEDEX SUPPLEMENT MEDICARE PART A & B [employer] CROSS MEDEX SUPPLEMENT MEDICARE PART A & B [employer] MEDEX SUPPLEMENT MEDICARE PART A & B [employer] CROSS MEDEX SUPPLEMENT MEDICARE PART A & B [employer] CROSS MEDEX SUPPLEMENT MEDICARE PART A & B [employer] MEDEX SUPPLEMENT MEDICARE PART A & B [employer]UE [employer] MEDEX SUPPLEMENT MEDICARE PART A & [place] [address] [address] [employer] MEDEX SUPPLEMENT MEDICARE PART A & B Care Teams Rubber Chemist Relationship Specialty Start Date End Date Rudolph Kumari NP [address] [facility] [place] [address] PCP - General Family Medicine 03/14/22 Additional Source Comments The information contained in this document represents components of the legal health record. It is not the complete legal health record.[facility]
[2025-04-07 06:46] LABS: MANUAL DIFF FLAG NO
[2025-04-07 07:15] LABS: Hematocrit 43.9 % (42.0-52.0); Hemoglobin 14.6 g/dl (14.0-18.0); Imm Gran Abs Auto 0.03 X10*3/uL (0.00-0.03); Imm Gran Pct Auto 0.5 % (0.0-0.4); Lymphocytes Absolute Auto 1.0 X10*3/uL (1.2-4.9); Mean Corpuscular HGB Conc 33.3 g/dl (31.0-36.0); Mean Corpuscular Hemoglobin 30.5 pg (27.0-33.0); Mean Corpuscular Volume 91.8 fL (80.0-98.0); NRBC Abs Auto 0.000 X10*3/uL (0.0-0.012); NRBC Pct Auto 0.0 /100WBC (0.0-0.2); Platelet Count 149 X10*3/uL (160-400); Red Blood Count 4.78 X10*6/uL (4.60-5.80); White Blood Count 6.1 X10*3/uL (4.8-10.8)
[2025-04-07 08:03] LABS: Alanine Aminotransferase 34 U/L (0-40); Albumin Level 4.5 g/dL (3.5-5.0); Alkaline Phosphatase 111 U/L (39-117); Anion Gap 9 (12-20); Aspartate Amino Transferase 33 U/L (5-37); Blood Urea Nitrogen 21 mg/dL (9-16); Calcium 9.2 mg/dL (8.4-10.2); Carbon Dioxide 27 mmol/L (22-29); Chloride 108 mmol/L (96-108); Cholesterol 199 mg/dL (<200); Estimated Glomerular Filt Rate > 60; HDL Cholesterol 50 mg/dL (>40); Potassium 4.2 mmol/L (3.3-5.1); Sodium 140 mmol/L (135-145); Total Protein 6.7 g/dL (6.5-8.0); Triglycerides 90 mg/dL (<150)
[2025-04-07 08:23] LABS: Appearance Urine Clear; Glucose Urine UA Negative (Negative); PH 5.5 (5.0-9.0); Specific Gravity - Urine >= 1.030 (1.005-1.025); UMIC TRIGGER UACC YES
== END 2025-04-07 06:13 | disposition home or self-care (01) ==
LOC: HO.LAB 06:12
PROVIDERS: PCP Nurse Practitioner Family; Visit Provider Nurse Practitioner Family
DX: I10 Essential (primary) hypertension (principal); E78.5 Hyperlipidemia, unspecified
CPT/HCPCS: 36415; 80053; 80061; 81001; 84443; 85025

== ENCOUNTER 2025-04-19 12:43 | Outpatient (AMB) | payer MEDICARE, SELFPAY ==
--- NOTE | 2025-04-19 13:01 | A.OFFVIS_ITS ---
Intake Vital Signs 04/19/25 13:02 Height 5 ft 9 in Weight 192 lb BMI 28.4 BP 138/78 Blood Pressure Location Lt brachial Position Sitting Respiration 16 Pulse 61 Pulse Source Pulse Oximeter Pulse Oximetry (%) 95 Oxygen Delivery Method Room Air Intake Visit Reasons: SWV G0439 Crnp Required: No Accompanied by: Self / Same As Patient Allergies morphine (MORPHINE) Allergy (Intermediate, Verified 04/04/25 08:32) HR DROPPED amlodipine Adverse Reaction (Intermediate, Verified 04/04/25 08:32) Depression azithromycin Adverse Reaction (Intermediate, Verified 04/04/25 08:32) Joint Pain clarithromycin (Prevpac) Adverse Reaction (Intermediate, Verified 04/04/25 08:32) depression (after taking for a few days) - includes most PPI lansoprazole (Prevpac) Adverse Reaction (Intermediate, Verified 04/04/25 08:32) depression (after taking for a few days) - includes most PPI ranitidine (Zantac) Adverse Reaction (Intermediate, Verified 04/04/25 08:32) depression (after taking for a few months) Prilosec Adverse Reaction (Intermediate, Uncoded 04/04/25 08:32) depression (after taking for a few days) - includes most PPI HPI SWV G0439 HPI Details AWV: CCC filled out and PPP filled out in scan [facility] 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 Pneumonia Pleural effusion ILD (interstitial lung disease) Right knee meniscal tear Abnormal biliary HIDA scan Kidney stones [place] of foot Bradycardia Left shoulder pain Normal colonoscopy (~08/2011) Lumbar spondylosis Impaired fasting glucose Dyslipidemia Benign essential hypertension History of gastric ulcer Gastritis Internal hemorrhoids Diverticulosis Benign prostatic hyperplasia Alopecia (capitis) totalis History of Lyme disease (~2009) History of hepatitis C Surgical History History of liver biopsy History of prostate surgery Status post left rotator cuff repair (~11/2020) History of esophagogastroduodenoscopy (EGD) (~06/2019) History of medial meniscus repair of left knee (~12/2016) Hx laparoscopic cholecystectomy (~10/2012) History of right inguinal hernia repair (~2011) History of surgery on right wrist Family History Father Gastric cancer Prostate cancer Family/Other Pancreas cancer Brother Skin cancer Social History Household Members: Other Household Members Other:: mother Housing: House Are you a primary personal caregiver to a significant other at home: No Do you presently have visiting nurse or other home services: No Alcohol intake: never Patient Tobacco Use Status: Never used Tobacco e-Cigarette/Vaping Use: Never Used Second Hand Smoke Exposure: No Advance Directives Date on File: 05/03/24 service: Yes Current occupational status: retired Cognitive needs: No Hearing needs: No Vision needs: Yes Questionnaire Medicare Wellness Checkup [age] What gender do you identify with?: male During the past 4 weeks, how much have you been bothered by emotional problems such as feeling anxious, depressed, irritable, sad or downhearted, and blue?: not at all During the past 4 weeks, has your physical & emotional health limited your social activities with family, friends, neighbors, or groups?: not at all During the past 4 weeks, how much bodily pain have you generally had?: severe pain During the past 4 weeks, was someone available to help you if you needed & wanted help?: no, not at all During the past 4 weeks, what was the hardest physical activity you could do for at least 2 minutes?: light Can you get to places out of walking distance without help? (For eg., can you travel alone on buses, taxis or drive your car?): Yes Can you go shopping for groceries or clothes without someone's help?: Yes Can you prepare your own meals?: Yes Can you do your housework without help?: Yes Because of any health problems, do you need the help of another person with your personal care needs such as eating, bathing, dressing or getting around the house?: No Can you handle your own money without help?: Yes During the past 4 weeks, how would you rate your health in general?: good During the past 4 weeks how have things been going for you?: pretty well Are you having difficulties driving your car?: no Do you always fasten your seat belt when you are in a car?: yes, usually During past 4 weeks, have you been bothered by the following: never: Falling or dizzy when standing up, Sexual problems?, Trouble eating well?, Teeth or denture problems? and Problems using the telephone? and sometimes: Tiredness or fatigue? Have you fallen 2 or more times in the past year?: No Are you afraid of falling?: No Are you a smoker?: no During the past 4 weeks, how many drinks of wine, beer, or other alcoholic beverages did you have?: no alcohol at all Do you exercise for about 20 minutes 3 or more times a week?: yes, most of the time Have you been given information to help with the following?: yes: Hazards in your house that might hurt you? and yes: Keeping track of your medications? How often do you have trouble taking medicines the way you have been told to take them?: I always take medicine as prescribed How confident are you that you can control & manage most of your health problems?: very confident What is your race?: White Mini Mental State Exam (MMSE) Orientation What is the (year) (season) (date) (day) (month)?: year, season, date, day and month Where are we (state) (county) (town or city) (hospital) (floor)?: state, county, town or city, hospital/clinic and floor Registration Name of 3 unrelated objects clearly and slowly, then ask patient to repeat all 3 of them. (1st repeat determines score. Make sure they can repeat all three): object 1, object 2 and object 3 Attention & Calculation (CHOOSE ONE) Spell WORLD backwards (DLROW): 5 letters Recall Ask patient to repeat the 3 items from question #3.: object 1, object 2 and object 3 Language Show patient a wristwatch & ask what it is. Repeat for pencil.: watch and pencil Ask the patient to repeat the phrase 'No ifs, ands, or buts' after you.: correct Ask the patient to 'take a piece of paper with their right hand' 'fold paper in half' 'place paper on floor': take paper in right hand, fold paper in half and place paper on floor Print the sentence 'CLOSE YOUR EYES' on a piece. If patient actually closes eyes then score.: followed written direction Give patient a blank piece of paper & ask to write a sentence. Score if it contains a noun & verb.: sentence contains subject and verb Ask patient to copy figure of intersecting pentagons exactly. Score if all 10 angles & 2 intersects are included.: all 10 angles present & 2 are intersected Score Score: 30 Activity of Daily Living Bathing - sponge bath, tub bath or shower: receives no assistance (gets in/out by self, if usual bathing means Dressing - getting clothes from closets & drawers, including inner/outer garments & fasteners.: gets clothes & gets completely dressed without help Toileting - going to the 'toilet room' for urine/bowel elimination & cleaning self/arranging clothes: goes to toilet room, cleans self, arranges clothes without help Transfer: moves in & out of bed and chair without help (may use support object) Continence: controls urination/bowel movements completely by self Feeding: feeds self without help Total Score: 0 Information obtained from: patient Using telephone: independent Traveling: independent Shopping: independent Preparing meals: independent Housework: independent Taking medicine: independent Managing money: independent PHQ-9 Over the last 2 weeks, how often have you been bothered by any of the following problems? 44[address] - PHQ-9 Billing: Patient declined-do not bill Source: Developed by Drs. Joshua Carreon, Erika Gomez, Filipe Hein and colleagues, with an educational paige from [employer]. 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 Orders: Orders Hepatitis A,B,C Profile Today Z11.59 - Encounter for screening for other viral diseases XR DEXA axial skeleton Today Z79.52 - FPC (current) use of systemic steroids Coding Level of Care Code Medicare First (G0438) Diagnoses On prednisone therapy Z79.52 Encounter for annual wellness visit (AWV) in Medicare patient Z00.00 CPT Codes Advance Care Planning - Time spent: 1-15 minutes, on File ([id number]) Advance Care Planning Forms completed: Health Care Proxy (filled out, in scan pile), MOLST (in scan pile) and Living will (pt reports this is already done) Time spent: 1-15 minutes, on File Actual minutes spent: 6
[2025-04-19 13:02] VITALS: BP 138/78; PULSE 61; RESP 16; O2SAT 95; BMI 28.4
--- OUTSIDE RECORDS SUMMARY | 2025-04-19 15:01 | XMS_ITS | Clinical Summary ---
Author Organization [address] Address [address] [place] [address] Phone Care Team Providers Care Cafe Lead Name Role Phone Unavailable Primary Care Provider [...] 2003 Zoster Vaccines (1 of 2) 2003 Abdominal Aortic Aneurysm (A AA) Screen 06/23/2024 Cholesterol Screening (Lipid Panel) 06/23/2024 Colorectal Cancer Screening: Colonoscopy 06/23/2024 Falls Risk Assessment 06/23/2024 Hepatitis C Screening 06/23/2024 Medicare Annual Wellness Visit 06/23/2024 Social Influencers of Health Screening 06/23/2024 Depression Screening 08/11/2024 COVID-19 Vaccine ( - 2023-2 5 season) 2025 Influenza Vaccine (#1) 2025 RSV Immunization Adult [...] age to complete this topic Insurance MEDICARE [facility]
--- OUTSIDE RECORDS SUMMARY | 2025-04-19 15:01 | XMS_ITS | Encounter Summary ---
Author Organization [facility] Address [address] [place] [address] Care Team Providers Care Human Service Coordinator Name Role Phone Unavailable Primary Care Provider Unavailabl e Encounter Details Date Type Department Care Team (Late st Contact Info) Description 06/23/[address] [facility] - Main Lab [address] [facility] [place] [address] Jose Boyd MD [address] [facility] [address] [place] [address] Benign essential microscopic hematuria Social History Tobacco [...] high grade urothelial carcinoma. 07/09/2024 10:33 AM [facility] Gross Description A. Urine, Voided, : Recd 1 TP cyto. 07/09/2024 10:33 AM [facility] Disclaimer Unless otherwise specified, all tissue is 10% NB formalin fixed and paraffin embedded. 07/09/2024 10:33 AM [facility] Tissue Urine specimen from urethra / Unknown 06/17/2024 06/23/2024 12:00 PM EST us Jose Boyd MD LAB PATHOLOGY ORDERABLES Fi nal Result [facility] ([facility]) [facility] [address] [place] [address], [place] [phone] documented in this encounter Visit Diagnoses Diagnosis Benign essential microscopic hematuria documented in this encounter
--- OUTSIDE RECORDS SUMMARY | 2025-04-19 15:01 | XMS_ITS | Clinical Summary ---
Author Organization [facility] Address [address] [place] [address] Phone Care Team Providers Care Paymaster Of Purses Name Role Phone Rudolph Kumari NP Primary [...] 1-dose series) 2013 COVID-19 VACCINE (2 - season) 2024 10/03/2020 INFLUENZA VACCINE (#1) 2025 , 04/29/2020, 08/18/2019, Additional history exists Adult Td,Tdap Booster 07/23/2026 07/23/2016 PNEUMOCOCCAL VACCINES (50+ years) Completed 04/29/2020, 04/06/2019, 12/20/2011 SMOKING STATUS SCREENING (Once After 26 Yrs) Completed 03/01/2022 HEPATITIS A [...] topic Medical Devices Not on file Insurance [employer] CROSS MEDEX SUPPLEMENT MEDICARE PART A & B [employer] CROSS MEDEX SUPPLEMENT MEDICARE PART A & B BLUE CROSS MEDEX SUPPLEMENT MEDICARE PART A & B BLUE CROSS MEDEX SUPPLEMENT MEDICARE PART A & B [employer] CROSS MEDEX SUPPLEMENT MEDICARE PART A & B [employer] CROSS MEDEX SUPPLEMENT MEDICARE PART A & B [employer] MEDEX SUPPLEMENT MEDICARE PART A & B [employer] MEDEX SUPPLEMENT MEDICARE PART A & B Member Subscriber Plan / Payer (Ef fective 2020-Present) Name:Chad Cotto Member ID:[id number] Relation to Subscriber:Self Name:Chad Cotto Subscriber ID:[id number] Payer ID:[id number] Group ID:Not on file Type:Medicare Address: [employer] [address] [place] [address] MEDEX SUPPLEMENT MEDICARE PART A & B Member Subscriber Plan / Payer (Ef fective 2020-Present) Name:Chad Cotto Member ID:[id number] Relation to Subscriber:Self Name:Chad Cotto Subscriber ID:[id number] Payer ID:[id number] Group ID:Not on file Type:Medicare Address: [employer] [address] [place] [phone] Care Teams Paymaster Of Purses Relationship Specialty Start Date End Date Rudolph Kumari NP [address] [address] PCP - General Family Medicine 03/14/22 Additional Source Comments The information contained in this document represents components of the legal health record. It is not the complete legal health record.[facility]
== END 2025-04-19 13:49 | disposition home or self-care (01) ==
LOC: HO.HMCC 12:43
PROVIDERS: PCP Nurse Practitioner Family; Visit Provider Nurse Practitioner Family
DX: Z00.00 Encounter for general adult medical examination without abnormal findings (principal); Z79.52 Long term (current) use of systemic steroids

== ENCOUNTER 2025-05-05 08:29 | Outpatient (REF) | payer MEDICARE, SELFPAY ==
--- NOTE | ~2025-05-05 | XR_ITS ---
EXAMINATION: XR CHEST 2 VIEWS HISTORY: J84.9 - Interstitial pulmonary disease, unspecified COMPARISON: Comparison is made with the prior examination dated 11/10/2024. FINDINGS: PA and lateral views of the chest are submitted. The lungs are expanded and clear. There is no pleural effusion, pneumothorax, or pulmonary vascular congestion. The heart is normal in size. There is degenerative disc disease of the spine. XR/XR chest 2V IMPRESSION: No acute cardiopulmonary abnormality. Electronically signed by: Joshua Humphreys MD 05/05/2025 08:59 AM EDT
--- OUTSIDE RECORDS SUMMARY | 2025-05-05 09:03 | XMS_ITS | Clinical Summary ---
Author Organization [address] Address [address] [place] [address] Phone Care Team Providers Care Demurrage Worker Name Role Phone Unavailable Primary Care [...] Insurance [place]IC[place] [facility] [place]
--- OUTSIDE RECORDS SUMMARY | 2025-05-05 09:03 | XMS_ITS | Clinical Summary ---
Author Organization [facility] Address [address] [place] [address] Phone Care Team Providers Care Instrument Technician Helper Name Role Phone Rudolph Kumari NP Primary [...] - Risk 60-74 years 1-dose series) 2013 INFLUENZA VACCINE (#1) 2025 , 04/29/2020, 08/18/2019, Additional history exists COVID-19 VACCINE (2 - 2024- season) 2025 10/03/2020 Adult Td,Tdap Booster 07/23/2026 07/23/2016 PNEUMOCOCCAL [...] topic Medical Devices Not on file Insurance [employer] CROSS MEDEX SUPPLEMENT MEDICARE PART A & B [employer] CROSS MEDEX SUPPLEMENT MEDICARE PART A & B BLUE CROSS MEDEX SUPPLEMENT MEDICARE PART A & B BLUE CROSS MEDEX SUPPLEMENT MEDICARE PART A & B [employer] CROSS MEDEX SUPPLEMENT MEDICARE PART A & B [employer] CROSS MEDEX SUPPLEMENT MEDICARE PART A & B [employer] MEDEX SUPPLEMENT MEDICARE PART A & B [employer] MEDEX SUPPLEMENT MEDICARE PART A & B Member Subscriber Plan / Payer (Ef fective 2020-Present) Name:Chad Cotto Member ID:[id number] Relation to Subscriber:Self Name:Chad Cotto Subscriber ID:[id number] Payer ID:[id number] Group ID:Not on file Type:Medicare Address: Level [address] [place] [address] MEDEX SUPPLEMENT MEDICARE PART A & B Member Subscriber Plan / Payer (Ef fective 2020-Present) Name:Chad Cotto Member ID:[id number] Relation to Subscriber:Self Name:Chad Cotto Subscriber ID:[id number] Payer ID:[id number] Group ID:Not on file Type:Medicare Address: Level [address] [place] [phone] Care Teams Instrument Technician Helper Relationship Specialty Start Date End Date Rudolph Kumari NP [address] [place] [address] PCP - General Family Medicine 03/14/22 Additional Source Comments The information contained in this document represents components of the legal health record. It is not the complete legal health record.[facility]
--- OUTSIDE RECORDS SUMMARY | 2025-05-05 09:03 | XMS_ITS | Encounter Summary ---
Author Organization [facility] Address [address] [place] [address] Care Team Providers Care Berry Grower Name Role Phone Unavailable Primary Care Provider Unavailabl e Encounter Details Date Type Department Care Team (Late st Contact Info) Description 06/23/2024 Lab Requisition [facility] - Main Lab [address] [facility] [place] [address] Jose Boyd MD [address] [facility] [address] [place] [address] Benign essential microscopic hematuria Social History Tobacco [...] MD LAB PATHOLOGY ORDERABLES Fi nal Result [facility] [address] [place] [address], [place] [phone] documented in this encounter Visit Diagnoses Diagnosis Benign essential microscopic hematuria documented in this encounter
[2025-05-05 09:58] LABS: Anion Gap 11 (12-20); Blood Urea Nitrogen 19 mg/dL (9-16); Calcium 9.5 mg/dL (8.4-10.2); Carbon Dioxide 26 mmol/L (22-29); Chloride 108 mmol/L (96-108); Estimated Glomerular Filt Rate > 60; Potassium 4.5 mmol/L (3.3-5.1); Sodium 140 mmol/L (135-145)
== END 2025-05-05 08:30 | disposition home or self-care (01) ==
LOC: HO.XRAY 08:29
PROVIDERS: Absent Provider Internal Medicine Hypertension Specialist; PCP Nurse Practitioner Family; Visit Provider Hospitalist
DX: I10 Essential (primary) hypertension (principal); J84.9 Interstitial pulmonary disease, unspecified
CPT/HCPCS: 36415; 71046; 80048

== ENCOUNTER → 2025-05-05 08:42 | Outpatient (BNV) | payer MEDICARE, SELFPAY | PROVIDERS: Absent Provider Internal Medicine Hypertension Specialist; PCP Nurse Practitioner Family; Visit Provider Radiology Diagnostic Radiology | DX: Z87.09 Personal history of other diseases of the respiratory system (principal) | CPT/HCPCS: 71046 ==

== ENCOUNTER 2025-05-11 10:14 | Outpatient (REF) | payer MEDICARE, SELFPAY ==
--- NOTE | ~2025-05-11 | MM_ITS ---
EXAMINATION: DXA BONE DENSITY AXIAL HISTORY: Z79.52 - residential (current) use of systemic steroids TECHNIQUE: [employer] Dual energy absorptiometry (DEXA) of the lumbar spine, total left hip, and femoral neck was performed. COMPARISON: There are no prior studies for comparison. FINDINGS: The bone mineral density of the lumbar spine is 1.322 g/cm2, corresponding to a T-score of 0.8, and a Z-score of 1.2. This is indicative of normal bone mineral density. The bone mineral density of the left total hip is 0.841 g/cm2, corresponding to a T-score of -0.8, and a Z-score of -1.1. This is indicative of osteopenia. The bone mineral density of the left femoral neck is 0.833 g/cm2, corresponding to a T-score of -1.8, and a Z-score of -0.6. This is indicative of osteopenia. FRACTURE RISK: The FRAX index suggests a risk of major osteoporotic fracture of 14.4%, and of hip fracture 4.7%. MM/XR DEXA axial skeleton IMPRESSION: Based on bone mineral density, and according to World Health Organization (WHO) criteria, the diagnosis is consistent with osteopenia. Statistically, 68% of repeat scans fall within 1 SD (+/- 0.010 g/cm2 for AP spine L1-L4) and 1 SD (+/- 0.012 g/cm2 for femur total) FRAX is a trademark of the [employer]'s [place] for Metabolic Bone Disease, a World Health Organization (WHO) Collaborating Center. Electronically signed by: Joshua Humphreys MD 05/11/2025 10:55 AM EDT
--- OUTSIDE RECORDS SUMMARY | 2025-05-11 11:29 | XMS_ITS | Clinical Summary ---
Author Organization [facility] Address [address] [place] [address] Phone Care Team Providers Care Rn Cardiac Cath Name Role Phone Rudolph Kumari NP Primary [...] topic Medical Devices Not on file Insurance [facility] CROSS MEDEX SUPPLEMENT MEDICARE PART A & B [facility] CROSS MEDEX SUPPLEMENT MEDICARE PART A & B BLUE CROSS MEDEX SUPPLEMENT MEDICARE PART A & B BLUE CROSS MEDEX SUPPLEMENT MEDICARE PART A & B [facility] CROSS MEDEX SUPPLEMENT MEDICARE PART A & B [facility] CROSS MEDEX SUPPLEMENT MEDICARE PART A & B [employer] MEDEX SUPPLEMENT MEDICARE PART A & B [employer] MEDEX SUPPLEMENT MEDICARE PART A & B Member Subscriber Plan / Payer (Ef fective 2020-Present) Name:Chad Cotto Member ID:[id number] Relation to Subscriber:Self Name:Chad Cotto Subscriber ID:[id number] Payer ID:[id number] Group ID:Not on file Type:Medicare Address: [employer] [address] [place] [address] MEDEX SUPPLEMENT MEDICARE PART A & B Member Subscriber Plan / Payer (Ef fective 2020-Present) Name:Chad Cotto Member ID:[id number] Relation to Subscriber:Self Name:Chad Cotto Subscriber ID:[id number] Payer ID:[id number] Group ID:Not on file Type:Medicare Address: [employer] [address] [place] [phone] Care Teams Rn Cardiac Cath Relationship Specialty Start Date End Date Rudolph Kumari NP [address] [facility] [place] [address] PCP - General Family Medicine 03/14/22 Additional Source Comments The information contained in this document represents components of the legal health record. It is not the complete legal health record.[facility]
--- OUTSIDE RECORDS SUMMARY | 2025-05-11 11:29 | XMS_ITS | Clinical Summary ---
Author Organization [address] Address [address] [place] [address] Phone Care Team Providers Care Design Cell Engineer Name Role Phone Unavailable Primary Care Provider [...] age to complete this topic Insurance [place]IC[place] [facility] [place] [facility]
--- OUTSIDE RECORDS SUMMARY | 2025-05-11 11:29 | XMS_ITS | Encounter Summary ---
Author Organization [facility] Address [address] [place] [address] Care Team Providers Care Consultant In Ergonomics And Safety Name Role Phone Unavailable Primary Care Provider Unavailabl e Encounter Details Date Type Department Care Team (Late st Contact Info) Description 06/23/[address] [facility] - Main Lab [address] [facility] [place] [address] Jose Boyd MD [address] [facility] [address] [place] [address] Benign essential microscopic hematuria Social History Tobacco [...] MD LAB PATHOLOGY ORDERABLES Fi nal Result [facility] [address] [place] [address], [place] [phone] documented in this encounter Visit Diagnoses Diagnosis Benign essential microscopic hematuria documented in this encounter
== END 2025-05-11 10:15 | disposition home or self-care (01) ==
LOC: HO.MAMMO 10:14
PROVIDERS: PCP Nurse Practitioner Family; Visit Provider Nurse Practitioner Family
DX: Z13.820 Encounter for screening for osteoporosis (principal); Z79.52 Long term (current) use of systemic steroids; M85.89 Other specified disorders of bone density and structure, multiple sites
CPT/HCPCS: 77080

== ENCOUNTER → 2025-05-11 10:30 | Outpatient (BNV) | payer MEDICARE, SELFPAY | PROVIDERS: PCP Nurse Practitioner Family; Visit Provider Radiology Diagnostic Radiology | DX: Z79.52 Long term (current) use of systemic steroids (principal) | CPT/HCPCS: 77080 ==

== ENCOUNTER 2025-05-19 09:31 | Outpatient (AMB) | payer MEDICARE, SELFPAY ==
--- NOTE | 2025-05-19 09:46 | A.OFFVIS_ITS ---
Vital Signs 05/19/25 09:47 Height 5 ft 9 in Weight 191 lb 12.835 oz BMI 28.3 BP 116/70 Blood Pressure Location Lt brachial Position Sitting Pulse 68 Pulse Source Pulse Oximeter Pulse Oximetry (%) 98 Oxygen Delivery Method Room Air Intake Visit Reasons: COPD Prototype Model Maker Required: No Accompanied by: Self / Same As Patient Allergies morphine (MORPHINE) Allergy (Intermediate, Verified 05/19/25 10:41) HR DROPPED amlodipine Adverse Reaction (Intermediate, Verified 05/19/25 10:41) Depression azithromycin Adverse Reaction (Intermediate, Verified 05/19/25 10:41) Joint Pain clarithromycin (Prevpac) Adverse Reaction (Intermediate, Verified 05/19/25 10:41) depression (after taking for a few days) - includes most PPI lansoprazole (Prevpac) Adverse Reaction (Intermediate, Verified 05/19/25 10:41) depression (after taking for a few days) - includes most PPI ranitidine (Zantac) Adverse Reaction (Intermediate, Verified 05/19/25 10:41) depression (after taking for a few months) Prilosec Adverse Reaction (Intermediate, Uncoded 04/04/25 08:32) depression (after taking for a few days) - includes most PPI HPI Comments Details: The patient is a 70-year-old gentleman here for evaluation of an abnormal CT scan of the chest. The patient was in usual state health until in 2021 when he underwent a screening endoscopy for the evaluation reflux disease. 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 The patient did undergo radiation therapy. He was also referred to Oncology. Further workup included a PET scan. This was done in July 2022 and I did review the results. No significant FDG activity in the parenchymal lung tissue and no abnormalities noted. The patient did not have any significant lymphadenopathy either. Subsequently after that in September he had a CT scan of the abdomen and pelvis that demonstrated some lung cuts with bilateral areas of airspace disease and consolidations. Patient was asymptomatic. He was placed on antibiotics at that time and he started expectorating some. He was not having any respiratory iss ues at that time. Subsequently the patient developed the flu she started developing significant myalgia and fatigue arthralgias and was not feeling well. After that he started having worsening cough and shortness of breath and was not feeling well. He started developing pleuritic discomfort. He had a repeat CT scan at that time in October 2022 which was personally by me now demonstrating bilateral peripheral patchy consolidations with some cavitations which appears to me more likely a component of post viral Staph aureus infection. That or some degree of bacteremia. The patient was having significant symptoms and he was seen by urgent care with placement 7 days of Bactrim and also prednisone and he is significantly better at this time. Therefore likely that by treating the likely staph infection is feeling better. That being said he was having some findings on the CT scan of the abdomen prior to being sick. The question still stands is could he have some underlying bronch is associated lymphoma in addition to the gastric lymphoma of the very unlikely. Based on the fact the patient is feeling better on the Bactrim will going to extend the course the Bactrim to treating for total 21 days. Then we will repeat the imaging studies as long as he is doing well. If the patient is not doing well then we will consider bronchoscopy earlier on. Otherwise will repeat the CT scan in around 6 weeks to see if she still has any residual findings and if he does will go ahead and intervene with a diagnostic bronchoscopy. 08/27/2023 the patient is here for pulmonary follow-up visit. The patient overall has been doing fairly well. Recently he started noticing increasing chest congestion. But minimal. The patient continues to be on 10 mg of prednisone. He is status post the Rituxan injection about 6-8 weeks ago. He does have blood work and a follow-up with his roustabout crew pusher soon. In the meantime we did have him go for a chest x-ray appears that he has had a slight increase in the airspace disease primarily on the right lower lobe and also right mid area. This is only minimal degree. Still, will continue to monitor his symptoms and will have a repeat chest x-ray in 3-4 weeks. He is going to see his roustabout crew pusher as well. In case his symptoms are worsening further adjustments of his medications may be warranted. But I am hopeful that he can continue on the lower dose prednisone specially with significant cushingoid appearance and high risk for adverse effects from the chronic prednisone use. Denies any fevers or chills low threshold to start antibiotics if his symptoms worsen. 10/29/2023 the patient is here for a pulmonary follow-up visit. Overall he is doing well. He continues on 10 mg of prednisone. He did follow-up with Rheumatology. Pretty happy with his results with rituximab. He did have a recent chest x-ray. We did personally reviewed. Those changes that he had as far as the opacity in the right hemithorax have improved. Overall his x-ray looks a lot better. Still getting some left-sided pleuritic chest discomfort. He did see Oncology and he was ordered to have a CT scan of chest sometime in November. In the meantime will start decreasing the prednisone some very slowly. Will try by 1 mg every 2 weeks to try to decrease at least to 7 mg. Will try to find the lowest most effective dose. If the patient has any trouble doing this he will call. Otherwise the patient does have some snoring. Denies any significant daytime drowsiness. Effort score is only 5/24. Therefore hold off on a sleep study. He has had some weight gain likely from the steroids. Therefore if he does have an increased cardiovascular risk factors home sleep study will be helpful. 03/02/2024 the patient is here for a pulmonary follow-up visit. He continues to do well. He is on 5 mg of prednisone. We have been slowly decreasing it to avoid any rebound effect. Still reassuring. He had a repeat CT scan of the chest which is extremely better. A lot of the nodular densities have resolved. Therefore, going to continues work down to decrease the prednisone slowly. If the patient develops any symptoms in the process he can always call. As he decrease the prednisone he will monitor for any symptoms of adrenal insufficiency. If he has any issues or symptoms of any concerns she will call the office. 05/26/2024 the patient is here for hospital follow-up visit. He has severe COVID with significant ARDS. Has been on prednisone taper. He has been on the oxygen supplementation. We did taken for 6 minute walk test today. The patient did not qualify for a portable oxygen concentrator but we are able to decrease his oxygen to 4 L continuous with activity. He can be on room air at rest. This is good seems to be getting better. In addition to that he can use the oxygen to sleep with. He is currently on prednisone 15 mg. He can get his flu shot now. In addition to that the patient will taper down by 2.5 once a week u ntil he is down to 10 mg and then stay on 10 mg. Patient will follow-up with me in a couple weeks. At that point will reassess for his next Rituxan dose. I am hoping that he can get vaccinated before his next dose. As far as the COVID will go ahead and check his COVID antibodies if his COVID antibodies are negative he will need to get another vaccine. Otherwise if his positive then have to wait at least 90 days from his last infection to be able to take the vaccine. We did look at his x-ray. Does have significant interstitial disease from his recent COVID on top of the interstitial lung disease at baseline. I did reassure him that he will continue to get better although is going to be a slow recovery. Based on his significant COVID he needs to start pulmonary rehabilitation. He is agreeable to this and will try to move him along to start rehab as soon as possible. 07/20/2024 the patient is here for pulmonary follow-up visit. He is finally feeling a little better. He has some difficult few months and weeks because of worsening chest congestion shortness of breath. Multiple courses of antibiotics without any significant improvement. Now after going up on the prednisone to 20 mg he starting to feel little better. He also been feeling depressed lately. He is not sure if his medication reaction to the amlodipine that. Therefore he stopped the blood pressure medication at this time. He states he is already feeling better. He does have shortness breath with activity [id number] severity. He does have a hard time carrying the oxygen tanks. Therefore we did a titration study with a conserving device and he actually did good on 2 L pulse maintaining a pulse ox of 91% with activity. Therefore will request a POC for better portability outside of the home from his [employer] company, [email or web address]. He also continues use the oxygen at nighttime with good effect. Soon he will be starting on a new medication for his going to give tissue disease as he has been taken off the Rituxan because of the immunosuppressive complication that he has had throughout the few months. In addition to that he was scheduled for bronchoscopy because his ongoing symptoms for deep cultures. However, will go ahead and hold off on the bronchoscopy at this point since he is doing a little better. Patient will come back in 4 weeks and will have him get an x-ray prior to that. 08/17/2024 the patient is here for a pulmonary follow-up visit. Overall he is doing better. He is exercising regularly. He is using the oxygen with good effect. He is looking to getting another concentrator to have in his gym in order for him to continue to exercise more. He is going to look for 1 and then I can give him a prescription for 1. In the meantime he also has a portable oxygen concentrator that has been affecting beneficial. Right now with the cold weather does not work as well though. He did start the aisle 6 inhibitor. This was to take the place of the Rituxan. Rituxan did work very well for his underlying connective tissue disease. However, he then developed COVID and had severe COVID. Therefore he was switched over to the IL 6 inhibitor. Unfortunately resulted high blood pressure to the point that developed hypertensive urgency with a systolic blood pressure of 220. He went to the emergency department. His blood pressure medications were adjusted. He became very concerned he does not want to take the IL 6 inhibitor any longer. He is wondering if he should go back on rituximab. He may have other options. His roustabout crew pusher will be retiring from [place] and he is going to be seeing a new roustabout crew pusher and a month. Therefore this time he will continue with the 15 mg of prednisone will stay there until he follows up with rheumatology. From a pulmonary standpoint he is doing better. He has had multiple x-rays from April to now in appears that he has significantly improved. He does have baseline interstitial lung disease. 11/15/2024 the patient is here for a pulmonary follow-up visit. Overall he is doing a lot better. He is off the oxygen at this time. He is walking several miles a day. The patient is staying active. He continues on 12.5 mg of prednisone. It has been affecting beneficial. He will follow-up Rheumatology soon and will talk about other alternative therapies for his connective tissue disease. In the meantime he did have a chest x-ray and we did personally review multiple x-rays going back to the fall. There seems to be progression throughout with significant improvement in aeration of the lungs. Exam is also really reassuring with improvement in his air movement without any significant crackles on exam. Overall he looks good and feels good. Will plan to follow-up in 6 months and will repeat the x-ray the time. He will follow-up with Rheumatology to talk about on additional agents to consider. Rituxan did work well for him from a connective tissue disease and inflammatory lung disease. However, he did get deathly ill with COVID. 05/19/2025 the patient is here for pulmonary follow-up visit. Overall the patient has been doing well though he hurt his back. He has been trying to exercise regularly. He does complaint of dyspnea on exertion [id number] severity. He just feels like he has a new baseline. He has been able to cut down the prednisone down to 5 mg which is reassuring. His last chest x-ray was done in April 2025 which I personally reviewed demonstrating some interstitial changes that are chronic no evidence of any pneumonitis which is reassuring. His respiratory exam is also also reassuring. We did talk about the vaccines that he should be getting. Specially since he is immunocompromised and he has underlying chronic lung disease. He will go ahead and get the vaccines at the pharmacy. Overall the patient is doing good will plan to follow-up in 6-8 months and will do an x-ray for the next visit if he has any issues prior to the next visit he can always call for further recommendations. 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 Pneumonia Pleural effusion ILD (interstitial lung disease) Right knee meniscal tear Abnormal biliary HIDA scan Kidney stones [place] of foot Bradycardia Left shoulder pain Normal colonoscopy (~08/2011) Lumbar spondylosis Impaired fasting glucose Dyslipidemia Benign essential hypertension History of gastric ulcer Gastritis Internal hemorrhoids Diverticulosis Benign prostatic hyperplasia Alopecia (capitis) totalis History of Lyme disease (~2009) History of hepatitis C Surgical History History of liver biopsy History of prostate surgery Status post left rotator cuff repair (~11/2020) History of esophagogastroduodenoscopy (EGD) (~06/2019) History of medial meniscus repair of left knee (~12/2016) Hx laparoscopic cholecystectomy (~10/2012) History of right inguinal hernia repair (~2011) History of surgery on right wrist Family History Father Gastric cancer Prostate cancer Family/Other Pancreas cancer Brother Skin cancer Social History Household Members: Other Household Members Other:: mother Housing: House Are you a primary caregivers non medical to a significant other at home: No Do you presently have visiting nurse or other home services: No Alcohol intake: never Patient Tobacco Use Status: Never used Tobacco e-Cigarette/Vaping Use: Never Used Second Hand Smoke Exposure: No Advance Directives Date on File: 05/03/24 service: Yes Current occupational status: retired Cognitive needs: No Hearing needs: No Vision needs: Yes Review of Systems Const Denies excessive sweating, Denies fever(s), Denies headache(s) and Denies night sweats Eyes Denies itchy eyes ENT Reports Normal hearing present, Denies headache(s), Denies nasal discharge, Denies post nasal drip and Denies sore throat Card Denies chest pain, Denies chest pain at rest, Denies chest pain with activity, Denies claudication, Denies leg edema, Reports dyspnea on exertion, Denies orthopnea and Denies paroxysmal nocturnal dyspnea Resp Reports chest congestion, Reports cough, Denies excessive phlegm production, Denies pain on inspiration, Denies pain with cough, Reports dyspnea on exertion and Denies stridor Neuro Reports Normal hearing present and Denies headache(s) Endo Denies excessive sweating Edwin/Lymph Denies lymphadenopathy Aller/Immun Denies itchy eyes and Denies seasonal rhinorrhea Physical Exam Vital Signs: Last Vital Signs Pulse 68 05/19/25 09:47 BP 116/70 05/19/25 09:47 Pulse Ox 98 05/19/25 09:47 Oxygen Delivery Method Room Air 05/19/25 09:47 BMI result Body Mass Index 28.3 Last Vital Signs Temp 97.4 F 04/29/24 08:00 Pulse 53 04/29/24 08:00 Resp 20 04/29/24 08:00 BP 139/79 04/29/24 08:00 Pulse Ox 87 L 04/29/24 08:00 O2 Del Method Oxymask 04/29/24 08:00 O2 Flow Rate 7 04/29/24 08:00 BMI result Body Mass Index 27.1 Const Other: Awake alert; able to speak short sentences General: cooperative and healthy appearing Nutritional Appearance: well nourished Orientation/consciousness: patient oriented x3 Limitations: no limitations HEENT Head: Yes normal to inspection Eyes General: appearance normal, both eyes and all related structures Neck Neck: Yes normal visual inspection Chest Chest palpation & inspection: normal inspection of the chest Resp Other: Diminished at bases with diffuse end inspiratory crackles and no expiratory wheezes Effort & Inspection: normal respiratory effort and able to speak in complete sentences Auscultation: no rales, no rhonchi, no wheezes and diminished lung sounds Cardio Other: No S4; positive S1-S2; no S3 murmurs rubs or gallops Rhythm: regular rhythm Heart sounds: S1 normal heart sound present and S2 normal heart sound present GI Other: Soft nontender nondistended normoactive bowel sounds Palpation (GI): Soft to palpation Skin General skin exam: no rashes or lesions noted Neuro General: patient oriented x3 Cranial nerves: Yes Normal hearing present Extrem Other: No edema bilaterally General: Yes no clubbing, cyanosis or edema Assessment & Plan Assessment & Plan (1) ILD (interstitial lung disease): Code(s): J84.9 - Interstitial pulmonary disease, unspecified Category: Medical (2) Rheumatoid arthritis: Code(s): M06.9 - Rheumatoid arthritis, unspecified Category: Medical Qualifiers: Rheumatoid arthritis location: unspecified site Rheumatoid factor presence: unspecified presence Qualified Code(s): M06.9 - Rheumatoid arthritis, unspecified (3) [facility] (current) use of systemic steroids: Code(s): Z79.52 - [facility] (current) use of systemic steroids Category: Medical Plan Prednisone 5 mg daily until he follow up rheumatology Oxygen discontinued rehab online CXR stable 04/2025 F/U 6 months with repeat CXR Orders: Orders XR chest 2V Today J84.9 - Interstitial pulmonary disease, unspecified Coding Level of Care Code Est Pt Level 4 (04860) Complex EM visit Add On G2211 Diagnoses ILD (interstitial lung disease) J84.9 Rheumatoid arthritis, involving unspecified site, unspecified whether rheumatoid factor present M06.9 Rheumatoid arthritis location: unspecified site Rheumatoid factor presence: unspecified presence [facility] (current) use of systemic steroids Z79.52 Time Spent (min) 16
[2025-05-19 09:47] VITALS: BP 116/70; PULSE 68; O2SAT 98; BMI 28.3
== END 2025-05-19 10:09 | disposition home or self-care (01) ==
LOC: HO.HPS 09:31
PROVIDERS: PCP Nurse Practitioner Family; Visit Provider Hospitalist
DX: J84.9 Interstitial pulmonary disease, unspecified (principal); M06.9 Rheumatoid arthritis, unspecified; Z79.52 Long term (current) use of systemic steroids
CPT/HCPCS: 99214; G2211

== ENCOUNTER → 2025-05-19 09:31 | Outpatient (BNVA) | payer MEDICARE, SELFPAY | PROVIDERS: PCP Nurse Practitioner Family; Visit Provider Hospitalist | DX: I10 Essential (primary) hypertension (principal); U09.9 Post COVID-19 condition, unspecified; J84.9 Interstitial pulmonary disease, unspecified; M06.9 Rheumatoid arthritis, unspecified; Z79.52 Long term (current) use of systemic steroids | CPT/HCPCS: 99212 ==

== ENCOUNTER 2025-05-19 10:33 | Outpatient (AMB) | payer MEDICARE, SELFPAY ==
[2025-05-19 10:39] VITALS: BP 120/70; PULSE 62; O2SAT 96; BMI 28.4
--- NOTE | 2025-05-19 10:39 | HO.NEPHOV ---
Vital Signs 05/19/25 10:39 Height 5 ft 9 in Weight 192 lb BMI 28.4 BP 120/70 Blood Pressure Location Lt brachial Position Sitting Pulse 62 Pulse Source Pulse Oximeter Pulse Oximetry (%) 96 Oxygen Delivery Method Room Air Intake Visit Reasons: FU, confirmed Bindery Chief Required: No Accompanied by: Self / Same As Patient Allergies morphine (MORPHINE) Allergy (Intermediate, Verified 05/19/25 10:41) HR DROPPED amlodipine Adverse Reaction (Intermediate, Verified 05/19/25 10:41) Depression azithromycin Adverse Reaction (Intermediate, Verified 05/19/25 10:41) Joint Pain clarithromycin (Prevpac) Adverse Reaction (Intermediate, Verified 05/19/25 10:41) depression (after taking for a few days) - includes most PPI lansoprazole (Prevpac) Adverse Reaction (Intermediate, Verified 05/19/25 10:41) depression (after taking for a few days) - includes most PPI ranitidine (Zantac) Adverse Reaction (Intermediate, Verified 05/19/25 10:41) depression (after taking for a few months) Prilosec Adverse Reaction (Intermediate, Uncoded 04/04/25 08:32) depression (after taking for a few days) - includes most PPI Medication List - Last Reconciled 05/19/25 by Murali Manning MD anakinra 100 mg (0.67 mL) subcut DAILY 30 days losartan 12.5 mg PO DAILY PRN prednisone 5 mg PO DAILY prednisone 1 mg PO DAILY PRN HPI Comments Details: Chad is a pleasant 69-year-old man who has been referred for evaluation of hypertension He has a complicated history. He has new onset hypertension. 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 He had an episode of flu and subsequently he was diagnosed with rheumatoid arthritis. He was treated with Rituxan and there was a spike in blood pressure. He was also treated with high dose of prednisone. The BP issues started Jul 29 after Actemra infusion. Less than a year ago he had an episode of COVID-19 infection which was rather severe. He developed respiratory issues. There was no pulmonary embolism on CTA. Since COVID-19 infection he has had wide fluctuations in the blood pressure. He was initially given amlodipine which caused depression. He was later switched to losartan which also gave depression. He is monitoring his blood pressure at home and tailoring the losartan accordingly. Currently he is on half a tablet of losartan 25 mg twice a day. He was also noted that his blood pressure always spikes when he eats salty diet. He was cut back on salt intake significantly. No history of any alcohol abuse or any drug abuse. 12/17/24 Says he feels depressed Thinks Losartan is making him depressed Unable to tolerated higher dose. Takes 16 mg - breaks up the pill and weighs the dose ; Has been checking his BP about 15- 20 times a day. Activity increases BP Anakinra was started December 10. 01/18/25 69-year-old male presenting with follow-up for blood pressure management. Following an Actemra administration on July 29, he experienced significant and prolonged elevations in blood pressure. Recently, however, he reports that his blood pressure has been stable for over a month, attributed to adherence to a low-sodium diet and a revised medication protocol including Losartan 10 mg daily, split into two doses, and the introduction of Anakinra around December 09. The patient has also begun tapering his prednisone dose under medical guidance. His dietary adjustments have been positively received, allowing reintroduction of certain foods. At present, he has not experienced any concerning hypertension episodes, indicating successful management. 05/19/25 - The patient is a 70-year-old male presenting with follow-up for hypertension management. - Hypertension: Controlled with losartan as needed; spikes to 190/100 mmHg occasionally. - Arthritic metatarsal joints: History of fractures, now arthritic, causing walking difficulty. - Muscular back pain: Severe pain post-weightlifting, improved after stopping biking. 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 Pneumonia Pleural effusion ILD (interstitial lung disease) Right knee meniscal tear Abnormal biliary HIDA scan Kidney stones [place] of foot Bradycardia Left shoulder pain Normal colonoscopy (~08/2011) Lumbar spondylosis Impaired fasting glucose Dyslipidemia Benign essential hypertension History of gastric ulcer Gastritis Internal hemorrhoids Diverticulosis Benign prostatic hyperplasia Alopecia (capitis) totalis History of Lyme disease (~2009) History of hepatitis C Surgical History History of liver biopsy History of prostate surgery Status post left rotator cuff repair (~11/2020) History of esophagogastroduodenoscopy (EGD) (~06/2019) History of medial meniscus repair of left knee (~12/2016) Hx laparoscopic cholecystectomy (~10/2012) History of right inguinal hernia repair (~2011) History of surgery on right wrist Family History Father Gastric cancer Prostate cancer Family/Other Pancreas cancer Brother Skin cancer Social History Household Members: Other Household Members Other:: mother Housing: House Are you a primary health care attorney to a significant other at home: No Do you presently have visiting nurse or other home services: No Alcohol intake: never Patient Tobacco Use Status: Never used Tobacco e-Cigarette/Vaping Use: Never Used Second Hand Smoke Exposure: No Advance Directives Date on File: 05/03/24 service: Yes Current occupational status: retired Cognitive needs: No Hearing needs: No Vision needs: Yes Physical Exam Vital Signs: Last Vital Signs Pulse 62 05/19/25 10:39 BP 120/70 05/19/25 10:39 Pulse Ox 96 05/19/25 10:39 Oxygen Delivery Method Room Air 05/19/25 10:39 BMI result Body Mass Index 28.4 Comfortable Neck supple no JVD. Lungs entry equal no rales. Heart S1-S2 heard no gallop or rub. Abdomen soft nontender. Neuro alert awake oriented. No asterixis. Extremities no edema. Const General: comfortable; No acute distress Orientation/consciousness: patient oriented x3 Eyes General: appearance normal, both eyes and all related structures Visual Bansal: normal visual bansal by confrontation Neck Neck: Yes supple and Yes no JVD Resp Effort & Inspection: normal respiratory effort and respiratory effort not decreased Cardio Palpation: no palpable S3 and no palpable S4 Heart sounds: no rubs GI Inspection: Yes normal to inspection Palpation (GI): Soft to palpation Percussion: Yes normal to percussion Auscultation: normal bowel sounds General: Yes no CVA tenderness Back/Spine/Pelvis Back: no CVA tenderness Skin General skin exam: no petechiae and no purpura Neuro General: patient oriented x3 and no focal motor deficits Extrem General: No clubbing and No edema Results Reviewed Nephrology Results: Hgb, (14.0-18.0) 14.6 g/dl 04/07/25 WBC, (4.8-10.8) 6.1 X10*3/uL 04/07/25 Plt Count, (160-400) 149 X10*3/uL L 04/07/25 Sodium, (135-145) 140 mmol/L 05/05/25 Potassium, (3.3-5.1) 4.5 mmol/L 05/05/25 Chloride, (96-108) 108 mmol/L 05/05/25 Carbon Dioxide, (22-29) 26 mmol/L 05/05/25 BUN, (9-16) 19 mg/dL H 05/05/25 Creatinine, (0.5-1.4) 1.04 mg/dL 05/05/25 Calcium, (8.4-10.2) 9.5 mg/dL 05/05/25 Urine Protein, (Neg-Trace) Negative mg/dL 04/07/25 Assessment & Plan Assessment & Plan (1) HTN (hypertension): Code(s): I10 - Essential (primary) hypertension Category: Medical (2) 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 He has labile hypertension with significant spikes in blood pressure readings. Blood pressure spikes are usually associated with the increased salt intake. All these symptoms have started after the COVID-19 infection. BP spikes and salt sensitivty started after Actemra infusion on Jul Salt sensitive HTN Does not want to do 24 hour ambulatory blood pressure monitoring He has been monitoring BP about 15- 20 times and therfore , we can forego 24 hr ABPM at this time. serum aldosterone is normal. plasma renin activity elevated due to Losartan serum catecholamines normal. Encouraged him to stay on low-sodium diet like he is already on. At present there is no indication to change any of his medications. Offered to refer him to a tertiary center in the past. No changes were made today . Orders: Orders Basic Metabolic Panel 6 Months Murali Manning MD I10 - Essential (primary) hypertension Medications: New diclofenac sodium 1% (Voltaren Arthritis Pain) APPLY TO AFFECTED AREA. 2 grams topical BID 50 grams 0RF Murali Manning MD Changed From prednisone 1 mg PO DAILY 90 tabs 0RF M06.9 - Rheumatoid arthritis, unspecified To prednisone 1 mg PO DAILY PRN M06.9 - Rheumatoid arthritis, unspecified Azucena Rodriguez MD Coding Level of Care Code Est Pt Level 4 (36820) Diagnoses HTN (hypertension) I10 [id number] syndrome U09.9
== END 2025-05-19 10:53 | disposition home or self-care (01) ==
LOC: HO.HKA 10:34
PROVIDERS: PCP Nurse Practitioner Family; Visit Provider Internal Medicine Hypertension Specialist
DX: I10 Essential (primary) hypertension (principal); U09.9 Post COVID-19 condition, unspecified
CPT/HCPCS: 99214

== ENCOUNTER 2025-06-07 12:37 | Outpatient (REF) | payer MEDICARE, SELFPAY ==
[2025-06-07 15:19] LABS: Prostate Specific Antigen 0.30 ng/mL (<0.05-4.0)
--- OUTSIDE RECORDS SUMMARY | 2025-06-07 15:54 | XMS_ITS | Encounter Summary ---
Author Organization [facility] Address [address] [place] [address] Care Team Providers Care Production Support Engineer Name Role Phone Unavailable Primary Care Provider Unavailabl e Encounter Details Date Type Department Care Team (Late st Contact Info) Description 06/23/2024 Lab Requisition [facility] - Main Lab [address] [facility] [place] [address] Jose Boyd MD [address] [facility] [address] [place] [address] Benign essential microscopic hematuria Social History Tobacco [...] high grade urothelial carcinoma. 07/09/2024 10:33 AM [facility] Gross Description A. Urine, Voided, : Recd 1 TP cyto. 07/09/2024 10:33 AM [facility] Disclaimer Unless otherwise specified, all tissue is 10% NB formalin fixed and paraffin embedded. 07/09/2024 10:33 AM [facility] Tissue Urine specimen from urethra / Unknown 06/17/2024 06/23/2024 12:00 PM EST us Jose Boyd MD LAB PATHOLOGY ORDERABLES Fi nal Result [facility] [address] [place] [address], [place] [phone] documented in this encounter Visit Diagnoses Diagnosis Benign essential microscopic hematuria documented in this encounter
--- OUTSIDE RECORDS SUMMARY | 2025-06-07 15:54 | XMS_ITS | Clinical Summary ---
Author Organization [address] Address [address] [place] [address] Phone Care Team Providers Care Water Registrar Name Role Phone Unavailable Primary Care Provider Unavailabl e Social History Tobacco Use Types Packs/Day Years Used Date Smoking Tobacco: Never Assessed Sex and Gender Information Value Date Recorded Sex Assigned at Not on file Legal Sex Male 11:52 AM EST Gender Identity Not on file Sexual Orientation Not on file Plan of Treatment Health Maintenance Due Date Last Done Comments Colorectal Cancer Screening: Colonoscopy 1955 DTaP,Tdap,and Td Vaccines (1 - Tdap) 1972 Pneumococcal Vaccine: 50+ Ye ars (1 of 1 - PCV) 2003 Zoster Vaccines (1 of 2) 2003 Abdominal Aortic Aneurysm (A AA) Screen 06/23/2024 Cholesterol Screening (Lipid Panel) 06/23/2024 Falls Risk Assessment 06/23/2024 Hepatitis C Screening 06/23/2024 Medicare Annual Wellness Visit 06/23/2024 Social Influencers of Health Screening 06/23/2024 Depression Screening 08/11/2024 COVID-19 Vaccine (1 - 2023-2 5 season) 2025 Influenza Vaccine [...] to complete this topic [place] [facility]
--- OUTSIDE RECORDS SUMMARY | 2025-06-07 15:55 | XMS_ITS | Clinical Summary ---
Author Organization [facility] Address [address] [place] [id number] Phone Care Team Providers Care Cell Stripper Final Name Role Phone Rudolph Kumari NP Primary [...] FOBT 1998 SIGMOIDOSCOPY 1998 VIRTUAL COLONOSCOPY 1998 INFLUENZA VACCINE (#1) 2025 , 04/29/2020, 08/18/2019, Additional history exists COVID-19 VACCINE ( - 2024- season) 2025 10/03/2020 Adult Td,Tdap Booster 07/23/2026 07/23/2016 RSV VACCINE (1 - 1-dose 75+ series) 2028 PNEUMOCOCCAL VACCINES (50+ years) Completed 04/29/2020, 04/06/2019, [...] Member Subscriber Plan / Payer (Ef fective 2020-) Name:Chad Cotto Member ID:[id number] Relation to Subscriber:Self Name:Chad Cotto Subscriber ID:[id number] Payer ID:[id number] Group ID:Not on file Type:Medicare [facility]: [facility] [address] BLUE [employer]OSS MEDEX SUPPLEMENT MEDICARE PART A & B [employer] MEDEX SUPPLEMENT MEDICARE PART A & B [employer] MEDEX SUPPLEMENT MEDICARE PART A & B [employer] MEDEX SUPPLEMENT MEDICARE PART A & B [employer] CR[employer] MEDEX SUPPLEMENT MEDICARE PART A & B [employer] MEDEX SUPPLEMENT MEDICARE PART A & B [employer] MEDEX SUPPLEMENT MEDICARE PART A & B Member Subscriber Plan / Payer (Ef fective 2020-Present) Name:Chad Cotto Member ID:[id number] Relation to Subscriber:Self Name:Chad Cotto Subscriber ID:[id number] Payer ID:[id number] Group ID:Not on file Type:Medicare Address: [employer] [address] MEDEX SUPPLEMENT MEDICARE PART A & B Member Subscriber Plan / Payer (Ef fective 2020-Present) Name:Chad Cotto Member ID:[id number] Relation to Subscriber:Self Name:Chad Cotto Subscriber ID:[id number] Payer ID:[id number] Group ID:Not on file Type:Medicare Address: [employer] [address] [place] [phone] Care Teams Cell Stripper Final Relationship Specialty Start Date End Date Rudolph Kumari NP [address] [place] [address] PCP - General Family Medicine 03/14/22 Additional Source Comments The information contained in this document represents components of the legal health record. It is not the complete legal health record.[facility]
== END 2025-06-07 12:38 | disposition home or self-care (01) ==
LOC: HO.LAB 12:37
PROVIDERS: PCP Nurse Practitioner Family; Visit Provider Urology
DX: Z12.5 Encounter for screening for malignant neoplasm of prostate (principal); R97.20 Elevated prostate specific antigen [PSA]
CPT/HCPCS: 36415; 84153

== ENCOUNTER 2025-06-20 08:30 | Outpatient (REF) | payer MEDICARE, SELFPAY ==
--- NOTE | ~2025-06-20 | XR_ITS ---
Exam: XR FOOT 3 OR MORE VIEWS BILATERAL, bilateral foot x-rays TECHNIQUE: AP, OBL and lateral views lower extremity, bilateral feet INDICATION: M19.071 - Primary osteoarthritis, right ankle and foot COMPARISON: Right heel x-ray December 07, 2014 FINDINGS: RIGHT FOOT: There is moderate narrowing of the first MTP joint with subchondral sclerosis and marginal osteophytes. Small marginal sites are seen at the IP joint of the great toe. There is ossification in the distal Achilles tendon and a small plantar calcaneal spur, both are increased since the prior. There are moderate vascular calcifications. LEFT FOOT: There is moderate to severe narrowing of the MTP joint of the great toe with subchondral sclerosis cystic change and osteophytes. There are also osteophytes involving the sesamoids of the great toe. Marginal osteophytes are present involving the IP joint of the great toe. There is ossification in the distal Achilles tendon. There are moderate vascular calcifications. XR/XR Foot Anuel 3V IMPRESSION: Right foot: Moderate osteoarthritis of the first MTP joint and mild osteoarthritis and IP joint of the great toe Left foot: Moderate to severe osteoarthritis of the IP joint and mild osteoarthritis of the IP joint of the great toe. Moderate atherosclerotic vascular disease. Electronically signed by: Kaiden Doe MD 06/20/2025 11:30 AM [facility]
== END 2025-06-20 08:31 | disposition home or self-care (01) ==
LOC: HO.HMGCX 08:30
PROVIDERS: PCP Nurse Practitioner Family; Visit Provider Nurse Practitioner Family
DX: M19.072 Primary osteoarthritis, left ankle and foot (principal); M19.071 Primary osteoarthritis, right ankle and foot; M85.80 Other specified disorders of bone density and structure, unspecified site; Z13.31 Encounter for screening for depression; Z13.39 Encounter for screening examination for other mental health and behavioral disorders
CPT/HCPCS: 73630; 96127; 99212

== ENCOUNTER 2025-06-20 08:30 | Outpatient (AMB) | payer MEDICARE, SELFPAY ==
--- NOTE | 2025-06-20 08:37 | A.OFFPC_ITS ---
Vital Signs 06/20/25 08:39 Height 5 ft 9 in Weight 196 lb BMI 28.9 BP 120/62 Blood Pressure Location Lt brachial Position Sitting Pulse 66 Pulse Source Pulse Oximeter Pulse Oximetry (%) 99 Oxygen Delivery Method Room Air Intake Visit Reasons: 2 month follow up/ok per Mortgage Loan Reviewer Required: No Accompanied by: Self / Same As Patient Allergies morphine (MORPHINE) Allergy (Intermediate, Verified 06/20/25 08:37) HR DROPPED amlodipine Adverse Reaction (Intermediate, Verified 06/20/25 08:37) Depression azithromycin Adverse Reaction (Intermediate, Verified 06/20/25 08:37) Joint Pain clarithromycin (Prevpac) Adverse Reaction (Intermediate, Verified 06/20/25 08:37) depression (after taking for a few days) - includes most PPI lansoprazole (Prevpac) Adverse Reaction (Intermediate, Verified 06/20/25 08:37) depression (after taking for a few days) - includes most PPI ranitidine (Zantac) Adverse Reaction (Intermediate, Verified 06/20/25 08:37) depression (after taking for a few months) Prilosec Adverse Reaction (Intermediate, Uncoded 06/20/25 08:37) depression (after taking for a few days) - includes most PPI Tobacco use date assessed: 06/20/25 Fall risk assessment: No Falls in past year Last assessed Fall Risk: 06/20/25 Dental Screening Dental Screen Date: 06/20/25 Did you have a dental visit in the last 12 months?: Yes Did you have a dental problem in the last 6 months where you did not have access to dental care?: No Was dental information given to patient?: Patient has dentist HPI 2 month follow up/ok per HPI Details Chief Complaint Patient presents for a generalized follow-up. History of Present Illness The patient is a 70 year old male presenting for a generalized follow-up. He has a history of osteopenia, which was identified on a prior bone density scan, and is managed with vitamin D and calcium supplements. The patient also has a history of arthritis in his feet, for which he previously received cortisone injections. He has not had podiatric care for over a year and a half since his prior certified substance abuse counselor . There is a remote history of a left great toe fracture from a hyperextension injury years ago. Social History Health Maintenance - The patient takes vitamin D and calciu m supplements for osteopenia, which was noted on a prior bone density scan. - A referral to a certified substance abuse counselor is requeste d for ongoing foot care. Review of Systems - Neurological: Denies headaches or blur red vision. - Cardiovascular: Denies chest pain. - Respiratory: Denies shortness of breat h. - Musculoskeletal: Reports stiffness and limited range of motion in the left g reat toe. Physical Exam General: Cooperative, healthy appearing, comfortable, no acute distress and well developed Orientation: Patient oriented x3 Limitations: Limited range of motion in the left big toe Head: Normal to inspection Ears: Hearing grossly normal bilaterally Nose: Normal external nose present Face and sinus: Normal facial exam Eyes: Appearance normal, both eyes and all related structures Neck: Normal visual inspection and Yes full ROM Respiratory: Normal respiratory effort and able to speak in complete sentences. Clear to auscultation bilaterally Cardiovascular: Regular rate and rhythm. Normal S1 and S2 GI: Normal to inspection. Soft to palpation and nontender Skin: Onychomycosis noted Neuro: Patient oriented x3 Extremities: Very limited range of motion in the left big toe, otherwise normal to inspection Results - Tests and Diagnostics: A prior bone de nsity scan noted osteopenia. Plan 1. Arthritis Of The Feet The patient has a history of arthritis in the feet, previously managed with cortisone injections. As he has not seen a certified substance abuse counselor in over 1.5 years, a referral will be placed for continued management. 2. Osteopenia The patient will continue his current regimen of vitamin D and calcium supplements for his history of osteopenia. 3. Stiffness Of Joint, Not Elsewhere Cla ssified, Ankle And Foot The patient has stiffness and very limited range of motion in his left great toe, which is a sequela of a remote fracture. This will be evaluated during the upcoming podiatry consultation. 4. Onychomycosis Onychomycosis was noted on examination and will be addressed by the consulting certified substance abuse counselor. Discussion Notes I discussed with the patient that we will place a referral to a certified substance abuse counselor. This referral is for ongoing management of his foot arthritis, stiffness in the left great toe from a past fracture, and onychomycosis. Patient Instructions - Continue to take your vitamin D and ca lcium supplements as you have been. - We will place a referral to a podiatri st (foot doctor) for your foot arthritis and other foot-related issues. - Please let us know if you develop any chest pain, shortness of breath, blurred vision, or headaches. 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 Pneumonia Pleural effusion ILD (interstitial lung disease) Right knee meniscal tear Abnormal biliary HIDA scan Kidney stones Garrett of foot Bradycardia Left shoulder pain Normal colonoscopy (~08/2011) Lumbar spondylosis Impaired fasting glucose Dyslipidemia Benign essential hypertension History of gastric ulcer Gastritis Internal hemorrhoids Diverticulosis Benign prostatic hyperplasia Alopecia (capitis) totalis History of Lyme disease (~2009) History of hepatitis C Surgical History History of liver biopsy History of prostate surgery Status post left rotator cuff repair (~11/2020) History of esophagogastroduodenoscopy (EGD) (~06/2019) History of medial meniscus repair of left knee (~12/2016) Hx laparoscopic cholecystectomy (~10/2012) History of right inguinal hernia repair (~2011) History of surgery on right wrist Family History Father Gastric cancer Prostate cancer Family/Other Pancreas cancer Brother Skin cancer Social History Household Members: Other Household Members Other:: mother Housing: House Are you a primary care services manager to a significant other at home: No Do you presently have visiting nurse or other home services: No Alcohol intake: never Patient Tobacco Use Status: Never used Tobacco e-Cigarette/Vaping Use: Never Used Second Hand Smoke Exposure: No Advance Directives Date on File: 05/03/24 service: Yes Current occupational status: retired Cognitive needs: No Hearing needs: No Vision needs: Yes Questionnaire PHQ-9 Over the last 2 weeks, how often have you been bothered by any of the following problems? 1. Little interest or pleasure in doing things: not at all 2. Feeling down, depressed, or hopeless: not at all 3. Trouble falling or staying asleep, or sleeping too much: not at all 4. Feeling tired or having little energy: not at all 5. Poor appetite or overeating: not at all 6. Feeling bad about yourself - or that you are a failure or have let yourself or your family down: not at all 7. Trouble concentrating on things, such as reading the newspaper or watching television: not at all 8. Moving or speaking so slowly that other people could have noticed. Or the opposite - being so fidgety or restless that you have been moving around a lot more than usual: not at all 9. Thoughts that you would be better off or of hurting yourself in some way: not at all Total score: 0 Depression Screening Interpretation: Negative Depression Screening Done: Yes 41272 - PHQ-9 Billing: Yes Source: Developed by Drs. Joshua Carreon, Erika Gomez, Filipe Hein and colleagues, with an educational paige from [employer]. Thrive Questionnaire Date Thrive assessed: 09/03/24 I am a: Patient What is your living situation today?: I have a steady place to live Within the past 12 months, did the food you bought not last and you didn't have the money to get more?: I choose not to answer this question Within the past 12 months, did you worry whether your food would run out before you got money to buy more?: I choose not to answer this question Do you have trouble paying for medicines?: I choose not to answer this question Do you have trouble getting transportation to medical appointments?: I choose not to answer this question Do you have trouble paying your heating and electricity bill?: I choose not to answer this question Do you have trouble taking care of your child, family member or friend?: I choose not to answer this question Do you have trouble with day-to-day activities such as bathing, preparing meals, shopping, managing finances, etc.?: I choose not to answer this question Are you currently unemployed and looking for a job?: I choose not to answer this question Are you interested in more education?: I choose not to answer this question Please select the resources that you would like help with: None Currently or been in a relationship where the following occur: I choose not to answer THRIVE Score: 0 BLAIR-7 AMB Questionnaire BLAIR-7 Date BLAIR - 7 assessed: 06/20/25 Feeling nervous, anxious, or on edge: 0 = Not at all Not being able to stop or control worryin = Not at all Worrying too much about different things: 0 = Not at all Trouble relaxin = Not at all Being so restless that it is hard to sit still: 0 = Not at all Becoming easily annoyed or irritable: 0 = Not at all Feeling afraid as if something awful might happen: 0 = Not at all Total BLAIR-7 score (0-4 normal; 5-9 mild; 10-14 moderate; 15-21 severe): 0 Source: Developed by Drs. Joshua Carreon, Erika Gomez, Filipe Hein and colleagues, with an educational paige from [employer]. BLAIR-7 Assessment Billing BLAIR-7 Assessment Tool: BLAIR-7 Assessment 04384 Physical exam (Primary Care) Vital Signs: Last Vital Signs Pulse 66 06/20/25 08:39 BP 120/62 06/20/25 08:39 Pulse Ox 99 06/20/25 08:39 Oxygen Delivery Method Room Air 06/20/25 08:39 BMI result Body Mass Index 28.9 Tobacco/Smoking Status: Tobacco use Status Tobacco use date assessed 06/20/25 06/20/25 08:43 Patient Tobacco Use Status Never used Tobacco 06/20/25 08:43 e-Cigarette/Vaping Use Never Used 06/20/25 08:43 PHQ-9: PHQ-9 Score PHQ-9: Total score 0 06/20/25 08:43 Depression Screening Interpretation: Negative Thrive Assessment: Date of Thrive Assessment Date Thrive assessed 09/03/24 06/20/25 08:43 Currently or been in a relationship where the following occur: I choose not to answer Coding Level of Care Code Est Pt Level 3 (00788) Diagnoses Arthritis of both feet M19.071; M19.072 Osteopenia M85.80 Additional Codes BLAIR-7 Assessment Billing - BLAIR-7 Assessment Tool: BLAIR-7 Assessment 96324 ([id number]) PHQ-9 - 45654 - PHQ-9 Billing: Yes ([id number]) Assessment & Plan Assessment & Plan (1) Arthritis of both feet: Code(s): M19.071 - Primary osteoarthritis, right ankle and foot; M19.072 - Primary osteoarthritis, left ankle and foot Category: Medical (2) Osteopenia: Code(s): M85.80 - Other specified disorders of bone density and structure, unspecified site Category: Medical Plan . Orders: Referrals Podiatry Referral M19.071 - Primary osteoarthritis, right ankle and foot, M19.072 - Primary osteoarthritis, left ankle and foot
[2025-06-20 08:39] VITALS: BP 120/62; PULSE 66; O2SAT 99; BMI 28.9
--- OUTSIDE RECORDS SUMMARY | 2025-06-20 08:51 | XMS_ITS | Clinical Summary ---
Author Organization [address] Address [address] [place] [address] Phone Care Team Providers Care Tree Topper Name Role Phone Unavailable Primary Care Provider [...] age to complete this topic Insurance [place]IC[place] [facility]
--- OUTSIDE RECORDS SUMMARY | 2025-06-20 08:51 | XMS_ITS | Encounter Summary ---
Author Organization [facility] Address [address] [place] [address] Care Team Providers Care Heel Coverer Machine Operator Name Role Phone Unavailable Primary Care Provider Unavailabl e Encounter Details Date Type Department Care Team (Late st Contact Info) Description 06/23/2024 Lab Requisition [facility] - Main Lab [address] [facility] [place] [address] Jose Boyd MD [address] [facility] [address] [place] [address] Benign essential microscopic hematuria Social History Tobacco [...] Fi nal Result [facility] [address] [place] [address], [place] [phone] documented in this encounter Visit Diagnoses Diagnosis Benign essential microscopic hematuria documented in this encounter
--- OUTSIDE RECORDS SUMMARY | 2025-06-20 08:51 | XMS_ITS | Clinical Summary ---
Author Organization [facility] Address [address] [place] [address] Phone Care Team Providers Care Accident Investigator Name Role Phone Rudolph Kumari NP Primary [...] Payer (Ef fective 2020-) Name:Chad Cotto Member ID:[id number] Relation to Subscriber:Self Name:Chad Cotto Subscriber ID:[id number] Payer ID:[id number] Group ID:Not on file Type:Medicare Address: [employer] [address] [employer] MEDEX SUPPLEMENT MEDICARE PART A & B [employer] SUPPLEMENT MEDICARE PART A & B [employer] SUPPLEMENT MEDICARE PART A & B [employer] MEDEX SUPPLEMENT MEDICARE PART A & B [employer] CROSS MEDEX SUPPLEMENT MEDICARE PART A & B [employer] MEDEX SUPPLEMENT MEDICARE PART A & B [employer] MEDEX SUPPLEMENT MEDICARE PART A & B Member Subscriber Plan / Payer (Ef fective 2020-Present) Name:Chad Cotto Member ID:[id number] Relation to Subscriber:Self Name:Chad Cotto Subscriber ID:[id number] Payer ID:[id number] Group ID:Not on file Type:Medicare Address: [employer] [address] MEDEX SUPPLEMENT MEDICARE PART A & B Member Subscriber Plan / Payer (Ef fective 2020-Present) Name:Chad Cotto Member ID:[id number] Relation to Subscriber:Self Name:Chad Cotto Subscriber ID:[id number] Payer ID:[id number] Group ID:Not on file Type:Medicare Address: [employer] [address] [place] [id number] Care Teams Accident Investigator Relationship Specialty Start Date End Date Rudolph Kumari NP [address] [place] [address] PCP - General Family Medicine 03/14/22 Additional Source Comments The information contained in this document represents components of the legal health record. It is not the complete legal health record.[facility]
== END 2025-06-20 09:31 | disposition home or self-care (01) ==
LOC: HO.HMCC 08:31
PROVIDERS: PCP Nurse Practitioner Family; Visit Provider Nurse Practitioner Family
DX: M19.071 Primary osteoarthritis, right ankle and foot (principal); M19.072 Primary osteoarthritis, left ankle and foot; M85.80 Other specified disorders of bone density and structure, unspecified site

== ENCOUNTER → 2025-06-20 09:14 | Outpatient (BNV) | payer MEDICARE, SELFPAY | PROVIDERS: PCP Nurse Practitioner Family; Visit Provider Radiology Diagnostic Radiology | DX: M19.071 Primary osteoarthritis, right ankle and foot (principal) | CPT/HCPCS: 73630 ==

== ENCOUNTER 2025-06-27 08:29 | Outpatient (REF) | payer MEDICARE, SELFPAY ==
[2025-06-27 10:53] LABS: MANUAL DIFF FLAG NO
[2025-06-27 11:04] LABS: Hematocrit 44.4 % (42.0-52.0); Hemoglobin 14.9 g/dl (14.0-18.0); Imm Gran Abs Auto 0.02 X10*3/uL (0.00-0.03); Imm Gran Pct Auto 0.3 % (0.0-0.4); Lymphocytes Absolute Auto 1.0 X10*3/uL (1.2-4.9); Mean Corpuscular HGB Conc 33.6 g/dl (31.0-36.0); Mean Corpuscular Hemoglobin 30.9 pg (27.0-33.0); Mean Corpuscular Volume 92.1 fL (80.0-98.0); NRBC Abs Auto 0.000 X10*3/uL (0.0-0.012); NRBC Pct Auto 0.0 /100WBC (0.0-0.2); Platelet Count 160 X10*3/uL (160-400); Red Blood Count 4.82 X10*6/uL (4.60-5.80); White Blood Count 6.9 X10*3/uL (4.8-10.8)
[2025-06-27 11:22] LABS: Alanine Aminotransferase 38 U/L (0-40); Albumin Level 4.6 g/dL (3.5-5.0); Alkaline Phosphatase 109 U/L (39-117); Anion Gap 12 (12-20); Aspartate Amino Transferase 37 U/L (5-37); Blood Urea Nitrogen 24 mg/dL (9-16); Calcium 9.8 mg/dL (8.4-10.2); Carbon Dioxide 26 mmol/L (22-29); Chloride 106 mmol/L (96-108); Estimated Glomerular Filt Rate > 60; Potassium 4.5 mmol/L (3.3-5.1); Sodium 139 mmol/L (135-145); Total Protein 6.9 g/dL (6.5-8.0)
== END 2025-06-27 08:30 | disposition home or self-care (01) ==
LOC: HO.10HDL 08:29
PROVIDERS: Visit Provider Student in an Organized Health Care Education/Training Program
DX: M06.00 Rheumatoid arthritis without rheumatoid factor, unspecified site (principal)
CPT/HCPCS: 36415; 80053; 85025; 85652; 86140

== ENCOUNTER 2025-07-05 08:25 | Outpatient (AMB) | payer MEDICARE, SELFPAY ==
--- NOTE | 2025-07-05 08:35 | A.OFFVIS_ITS ---
Vital Signs 07/05/25 08:40 Height 5 ft 9 in Weight 199 lb 8.293 oz BMI 29.5 BP 142/90 H Blood Pressure Location Rt brachial Position Sitting Pulse 64 Pulse Source Pulse Oximeter Pulse Oximetry (%) 94 Oxygen Delivery Method Room Air Intake Visit Reasons: RA-ILD Intake Note: Patient presents for RA-ILD follow up. Allergies morphine (MORPHINE) Allergy (Intermediate, Verified 07/05/25 08:39) HR DROPPED amlodipine Adverse Reaction (Intermediate, Verified 07/05/25 08:39) Depression azithromycin Adverse Reaction (Intermediate, Verified 07/05/25 08:39) Joint Pain clarithromycin (Prevpac) Adverse Reaction (Intermediate, Verified 07/05/25 08:39) depression (after taking for a few days) - includes most PPI lansoprazole (Prevpac) Adverse Reaction (Intermediate, Verified 07/05/25 08:39) depression (after taking for a few days) - includes most PPI ranitidine (Zantac) Adverse Reaction (Intermediate, Verified 07/05/25 08:39) depression (after taking for a few months) Prilosec Adverse Reaction (Intermediate, Uncoded 06/20/25 08:37) depression (after taking for a few days) - includes most PPI Medication List - Last Reconciled 07/05/25 by Azucena Rodriguez MD anakinra 100 mg (0.67 mL) subcut DAILY 30 days diclofenac sodium 1% (Voltaren Arthritis Pain) 2 grams topical BID losartan 25 mg PO BID prednisone 5 mg PO DAILY HPI Comments Details: Patient is a 70-year-old male with alopecia universalis, 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 complicated by limited right wrist extension, history of gastric lymphoma status post radiation therapy and seronegative rheumatoid arthritis with ILD (cryptogenic organizing pneumonia) presents today for follow up Interval History: Patient last seen 03/02/25 with me - On Anakina 100mg SC daily and prednisone 8.5mg daily - Feel some aches in his feet but thinks this is related to his OA - Tolerating Anakinra - Plan: decrease pred by 1mg every month until 5mg then hold Today - On Anakinra 100mg SC daily and predisone 5 mg daily - No return of RA symptoms but has noticed that decreasing the dose for 6mg to 5mg - other complaints: Worsening fatigue, weakened nails - New diagnosis of osteopenia Rheumatologic History: Initially evaluated 12/13/2022 for polyarthritis. Subsequently found to have recurrent lung infiltrates that was diagnosed as cryptogenic organizing pneumonia. Given the arthritis and lung findings he was evaluated for an underlying autoimmune disease which ultimately revealed +PL-7, +dsDNA, +NT5C1A Ab. RF, CCP and JESSICA negative He was ultimately diagnosed with seronegative rheumatoid arthritis complicated by RA ILD and was started on rituximab infusions Patient received 1 dose of rituximab 03/25. 2 weeks after he was diagnosed with COVID. Few days later his condition worsened and he was admitted to the hospital for a few days, had to have oxygen supplementation (ARDS 2/2 COVID). On discharge patient needed some oxygen. He was also treated with prednisone taper at that time. 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 Pneumonia Pleural effusion ILD (interstitial lung disease) Right knee meniscal tear Abnormal biliary HIDA scan Kidney stones Banks of foot Bradycardia Left shoulder pain Normal colonoscopy (~08/2011) Lumbar spondylosis Impaired fasting glucose Dyslipidemia Benign essential hypertension History of gastric ulcer Gastritis Internal hemorrhoids Diverticulosis Benign prostatic hyperplasia Alopecia (capitis) totalis History of Lyme disease (~2009) History of hepatitis C Surgical History History of liver biopsy History of prostate surgery Status post left rotator cuff repair (~11/2020) History of esophagogastroduodenoscopy (EGD) (~06/2019) History of medial meniscus repair of left knee (~12/2016) Hx laparoscopic cholecystectomy (~10/2012) History of right inguinal hernia repair (~2011) History of surgery on right wrist Family History Father Gastric cancer Prostate cancer Family/Other Pancreas cancer Brother Skin cancer Social History Household Members: Other Household Members Other:: mother Housing: House Are you a primary director day care center to a significant other at home: No Do you presently have visiting nurse or other home services: No Alcohol intake: never Patient Tobacco Use Status: Never used Tobacco e-Cigarette/Vaping Use: Never Used Second Hand Smoke Exposure: No Advance Directives Date on File: 05/03/24 service: Yes Current occupational status: retired Cognitive needs: No Hearing needs: No Vision needs: Yes Review of Systems Narrative Review of Systems Constitutional: Denies fever, chills, weight loss ENT: Denies vision changes, eye pain or eye redness, dental caries, dry mouth GI: Denies nausea, vomiting, diarrhea, abdominal pain, change in BM Pulm: Denies SOB, TURCIOS, hemoptysis, wheezing Cards: Denies chest pain, palpitations Skin: Denies Raynaud's, rash, nail changes, photosensitivity, 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 Well appearing and in no apparent painful distress MSK Hands * Right Hand: Able to make a fist. No swelling or tenderness to palpation of the MCPs, PIPs or DIPs. * Left Hand: Able to make a fist. No swelling or tenderness to palpation of the MCPs, PIPs or DIPs. * Herbedens nodes noted bilaterally Wrists * Right Wrist: Full ROM to flexion and extension. No swelling or TTP * Left Wrist: Full ROM to flexion and extension. No swelling or TTP Elbows * Right Elbow: Full ROM. No swelling or TTP. No TTP of the medial epicondyle. No TTP of the lateral epicondyle * Left Elbow: Full ROM. No swelling or TTP. No TTP of the medial epicondyle. No TTP of the lateral epicondyle Shoulders * Right shoulder: Full ROM. No swelling noted. No TTP of the AC joint. No TTP of the subacromial bursa. No TTP of the posterior shoulder * Left shoulder: Full ROM. No swelling noted. No TTP of the AC joint. No TTP of the subacromial bursa. No TTP of the posterior shoulder Knees * Right knee: No swelling noted. No TTP of the knee joint line. No TTP of pes anserine bursa * Left knee: No swelling noted. No TTP of the knee joint line. No TTP of pes anserine bursa. * Crepitations felt bilaterally Ankles * Right ankle: Good ankle dorsiflexion and plantar flexion. No swelling. No TTP of the ankle joint * Left ankle: Good ankle dorsiflexion and plantar flexion. No swelling. No TTP of the ankle joint Feet * Right foot: Negative squeeze test * Left foot: Negative squeeze test Tender points? * No tenderness to palpation of the bilateral trapezius, supraspinatus, anterior costochondral junctions, bilateral suboccipital muscle insertions SKIN No rashes Alopecia noted Vital Signs: Last Vital Signs Pulse 64 07/05/25 08:40 BP 142/90 H 07/05/25 08:40 Pulse Ox 94 07/05/25 08:40 Oxygen Delivery Method Room Air 07/05/25 08:40 BMI result Body Mass Index 29.5 Results Reviewed Results Reviewed: Laboratory Tests 06/27/25 08:32 WBC 6.9 RBC 4.82 Hgb 14.9 Hct 44.4 Plt Count 160 ESR 2 Sodium 139 Potassium 4.5 Chloride 106 Carbon Dioxide 26 BUN 24 H Creatinine 1.12 AST 37 ALT 38 C-Reactive Protein < 0.10 Immunology Labs 12/11/22 03/19/23 08/27/23 09:31 08:50 11:20 Rheumatoid Factor < 13.0 Cycl Citrul Peptide IgG <[address]-7 Antibody 15 H Laboratory Tests 10/21/24 02/21/25 09:20 08:20 Hep Bs Antigen Negative Hep Bs Antibody NONREACTIVE Hep B Core Total Ab Nonreactive Hepatitis C Ab (EIA) Reactive H Hep C Viral Load <15 NOT DETECTED Hep C Viral Load Log <1.18 NOT DETECTED TB Test (T-Spot) Com Negative DEXA 05/2025 FINDINGS: The bone mineral density of the lumbar spine is 1.322 g/cm2, corresponding to a T-score of 0.8, and a Z-score of 1.2. This is indicative of normal bone mineral density. The bone mineral density of the left total hip is 0.841 g/cm2, corresponding to a T-score of -0.8, and a Z-score of -1.1. This is indicative of osteopenia. The bone mineral density of the left femoral neck is 0.833 g/cm2, corresponding to a T-score of -1.8, and a Z-score of -0.6. This is indicative of osteopenia. FRACTURE RISK: The FRAX index suggests a risk of major osteoporotic fracture of 14.4%, and of hip fracture 4.7%. Assessment & Plan Assessment & Plan (1) Seronegative rheumatoid arthritis: Comment: RTX 1 g X 2 doses 07/2023 1 dose 03/2024 followed by multiple infections Code(s): M06.00 - Rheumatoid arthritis without rheumatoid factor, unspecified site Category: Medical Plan: #Seronegative RA Patient is a 70 y.o. male with seronegative rheumatoid arthritis currently with no evidence of active synovitis on examination today on 5mg of prednisone and Anakinra Noticing worsening joint pain but exam and history is consistent with osteoarthritic pains involving his back and his knees. Discuss this with the patient and he is in agreement. For now he is looking for procedural interventions from other providers so we will continue the current dose of prednisone Plan - Prednisone 5mg - Anakinra 100mg SC daily - Continue pulm follow up - RTC 4 months - Labs prior to visit: CBC, CMP, ESR, CRP, Hepatitis panel and T spot (2) Osteopenia: Comment: DEXA 05/2025. AP Spine 0.8, Left femur neck -1.8, Left femur total -0.8. 14.4/4.7 Code(s): M85.80 - Other specified disorders of bone density and structure, unspecified site Category: Medical Qualifiers: Osteopenia location: femoral neck Laterality: left Qualified Code(s): M85.852 - Other specified disorders of bone density and structure, left thigh Plan: #Osteopenia Patient with new diagnosis of osteopenia. 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 Inflammatory arthritis is a component of antisynthetase syndrome as well. The last CK was checked back in 2022 and it was low at 23. We will still keep this in the back of our mind as this could be evolving antisynthetase syndrome with inflammatory arthritis mimicking rheumatoid arthritis. Anakinra has been used for antisynthetase syndrome as well so this would be a good agent to place the patient on Pascale Fernandez, Kristal N, Diomedes G, Zacarias G, Koko Coe, Caitlin Richey, Edda Le. Anakinra for the Treatment of Antisynthetase Syndrome: A Monocentric Case Series and a Systematic Literature Review. J Rheumatol. 2022;50(1):151- 153. doi: 10.3899/[email or web address]. Epub 2021Apr 25. PMID: [id number]. 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: Code(s): Z79.52 - alf (current) use of systemic steroids Category: Medical Plan: #Long-term Use of Steroids Discussed with patient the risks and benefits of steroid for managing the rheumatic condition Benefits include: - Reduced pain, improved mobility, increased participation in activities, and decreased progression of disease Risks include: - GI upset, potential ultrasound worsening or formation (especially in patients > 65 years old), elevated blood pressure/worsening hypertension, elevated blood sugar/worsening diabetes control, worsening of bone density, elevated lipids/worsening triglycerides, cataract formation, weight gain Recommended using proton pump inhibitors (PPIs) for the duration of steroid use to reduce the risk of gastric ulcers and vitamin-D daily to reduce the risk of osteoporosis Labs checked: ?A1c, T spot, hepatitis-B and C serologies Pneumocystis jiroveci prophylaxis: ?Patient with risk factors including steroids greater than 50 mg for more than 30 days, age greater than 60 years, and lung involvement from underlying rheumatic disease requires prophylaxis and will be given so (5) Long-term current use of anakinra: Code(s): Z79.899 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 - Other shelter (current) drug therapy T Spot TB 4 Months Z. 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 Vitamin D 25-OH Total 4 Months E55.9 - Vitamin D deficiency, unspecified Complete Blood Count Auto Diff 4 Months Z. - Other shelter (current) drug therapy Comprehensive Met. Panel 4 Months Z. 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 Medications: New alendronate 70 mg PO QWEEK 13 tabs 1RF M81.0 - Age-related osteoporosis without current pathological fracture Refilled anakinra administer at approximately same time(s) each day 100 mg (0.67 mL) subcut DA AYDEE 20.1 mL 4RF 30 days M06.00 - Rheumatoid arthritis without rheumatoid factor, unspecified site prednisone 5 mg PO DAILY 90 tabs 1RF M06.00 - Rheumatoid arthritis without rheumatoid factor, unspecified site Coding Level of Care Code Est Pt Level 4 (71909) Complex visit Add On G2211 Diagnoses Seronegative rheumatoid arthritis M06.00 Osteopenia of neck of left femur M85.852 Osteopenia location: femoral neck Laterality: left Antisynthetase syndrome D89.89 alf (current) use of systemic steroids Z79.52 Long-term current use of anakinra Z79.
[2025-07-05 08:40] VITALS: BP 142/90; PULSE 64; O2SAT 94; BMI 29.5
--- OUTSIDE RECORDS SUMMARY | 2025-07-05 08:41 | XMS_ITS | Clinical Summary ---
Author Organization [facility] Address [address] [place] [id number] Phone Care Team Providers Care Gear Lapping Machine Operator Name Role Phone Rudolph Kumari NP Primary [...] patient's age to complete this topic IPV VACCINES Aged Out No longer eligi ble based on patient's age to complete this topic MENINGOCOCCAL VACCINES (ACWY) Aged Out No longer eligible based on patient's age to complete this topic MENINGOCOCCAL VACCINES (B) Aged Out N o longer eligible based on patient's age to complete this topic Medical Devices Not on file Insurance [employer] CROSS MEDEX SUPPLEMENT MEDICARE PART A & B [employer] MED[employer] SUPPLEMENT MEDICARE PART A & B [employer] MEDEX SUPPLEMENT MEDICARE PART A & B [employer] CROSS MEDEX SUPPLEMENT MEDICARE PART A & B [employer] MED[employer] SUPPLEMENT MEDICARE PART A & B [employer] MED[employer] SUPPLEMENT MEDICARE PART A & B [employer] MEDEX SUPPLEMENT MEDICARE PART A & B [employer] CROSS MEDEX SUPPLEMENT MEDICARE PART A & [place] [address] [place] [address] CROSS MEDEX SUPPLEMENT MEDICARE PART A & B Care Teams Gear Lapping Machine Operator Relationship Specialty Start Date End Date Rudolph Kumari NP [facility] [place] [address] PCP - General Family Medicine 03/14/22 Additional Source Comments The information contained in this document represents components of the legal health record. It is not the complete legal health record.[facility]
--- OUTSIDE RECORDS SUMMARY | 2025-07-05 08:41 | XMS_ITS | Encounter Summary ---
Author Organization [facility] Address [address] [place] [address] Care Team Providers Care Android Architect Name Role Phone Unavailable Primary Care Provider Unavailabl e Encounter Details Date Type Department Care Team (Late st Contact Info) Description 06/23/2024 Lab Requisition [facility] - Main Lab [address] [facility] [place] [address] Jose Boyd MD [address] [facility] [address] [place] [address] Benign essential microscopic hematuria Social History Tobacco [...] high grade urothelial carcinoma. 07/09/2024 10:33 AM [facility] Gross Description A. Urine, Voided, : Recd 1 TP cyto. 07/09/2024 10:33 AM [facility] Disclaimer Unless otherwise specified, all tissue is 10% NB formalin fixed and paraffin embedded. 07/09/2024 10:33 AM [facility] Tissue Urine specimen from urethra / Unknown 06/17/2024 06/23/2024 12:00 PM EST us Jose Boyd MD LAB PATHOLOGY ORDERABLES Fi nal Result [facility] ([facility]) [facility] [address] [place] [address], [place] [phone] documented in this encounter Visit Diagnoses Diagnosis Benign essential microscopic hematuria documented in this encounter
--- OUTSIDE RECORDS SUMMARY | 2025-07-05 08:41 | XMS_ITS | Clinical Summary ---
Author Organization [address] Address [address] [place] [address] Phone Care Team Providers Care Director Of Career Resources Name Role Phone Unavailable Primary Care Provider [...] Depression Screening 08/11/2024 COVID-19 Vaccine (1 - 2024-2 6 season) 2025 Influenza Vaccine (#1) 2025 RSV [...] age to complete this topic Insurance MEDICARE [facility]
== END 2025-07-05 09:23 | disposition home or self-care (01) ==
LOC: HO.RHES 08:26
PROVIDERS: PCP Nurse Practitioner Family; Visit Provider Student in an Organized Health Care Education/Training Program
DX: M06.00 Rheumatoid arthritis without rheumatoid factor, unspecified site (principal); M85.852 Other specified disorders of bone density and structure, left thigh; D89.89 Other specified disorders involving the immune mechanism, not elsewhere classified; Z79.52 Long term (current) use of systemic steroids; Z79.899 Other long term (current) drug therapy
CPT/HCPCS: 99214; G2211

== ENCOUNTER → 2025-07-05 08:25 | Outpatient (BNVA) | payer MEDICARE, SELFPAY | PROVIDERS: PCP Nurse Practitioner Family; Visit Provider Student in an Organized Health Care Education/Training Program | DX: M06.00 Rheumatoid arthritis without rheumatoid factor, unspecified site (principal); M85.852 Other specified disorders of bone density and structure, left thigh; D89.89 Other specified disorders involving the immune mechanism, not elsewhere classified; E55.9 Vitamin D deficiency, unspecified; J84.9 Interstitial pulmonary disease, unspecified; Z79.52 Long term (current) use of systemic steroids; Z79.899 Other long term (current) drug therapy | CPT/HCPCS: 99212 ==

== ENCOUNTER 2025-07-12 07:47 | Outpatient (AMB) | payer MEDICARE, SELFPAY ==
--- OUTSIDE RECORDS SUMMARY | 2025-07-12 07:52 | XMS_ITS | Encounter Summary ---
Author Organization [facility] Address [address] [place] [address] Care Team Providers Care Salvage Engineering Technician Name Role Phone Unavailable Primary Care Provider Unavailabl e Encounter Details Date Type Department Care Team (Late st Contact Info) Description 06/23/2024 Lab Requisition [facility] [address] [facility] [place] [address] Jose Boyd MD [address] [facility] [address] [place] [address] Benign essential microscopic hematuria Social History Tobacco [...] grade urothelial carcinoma. 07/09/2024 10:33 AM EST [facility] at 1033 EST Gross Description A. Urine, Voided, : Recd 1 TP cyto. 07/09/2024 10:33 AM [facility] Disclaimer Unless otherwise specified, all tissue is 10% NB formalin fixed and paraffin embedded. 07/09/2024 10:33 AM [facility] Tissue Urine specimen from urethra / Unknown 06/17/2024 06/23/2024 12:00 PM EST us Jose Boyd MD LAB PATHOLOGY ORDERABLES Fi nal Result [facility] ([facility] [address] [place] [address], [place] [phone] documented in this encounter Visit Diagnoses Diagnosis Benign essential microscopic hematuria documented in this encounter
--- OUTSIDE RECORDS SUMMARY | 2025-07-12 07:52 | XMS_ITS | Clinical Summary ---
Author Organization [address] Address [address] [place] [address] Phone Care Team Providers Care Service Desk Technician Name Role Phone Unavailable Primary Care [...] age to complete this topic Insurance MEDICARE [facility]
[2025-07-12 08:12] VITALS: BMI 27.3
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
== END 2025-07-12 08:45 | disposition home or self-care (01) ==
LOC: HO.HPODS 07:47
PROVIDERS: PCP Nurse Practitioner Family; Visit Provider Student in an Organized Health Care Education/Training Program
DX: M20.22 Hallux rigidus, left foot (principal); M19.90 Unspecified osteoarthritis, unspecified site; M19.071 Primary osteoarthritis, right ankle and foot; M19.072 Primary osteoarthritis, left ankle and foot; M77.30 Calcaneal spur, unspecified foot; M72.2 Plantar fascial fibromatosis; M79.674 Pain in right toe(s); M79.675 Pain in left toe(s); M76.61 Achilles tendinitis, right leg; M76.62 Achilles tendinitis, left leg
CPT/HCPCS: 20600; 99204

== ENCOUNTER → 2025-07-12 07:47 | Outpatient (BNVA) | payer MEDICARE, SELFPAY | PROVIDERS: PCP Nurse Practitioner Family; Visit Provider Student in an Organized Health Care Education/Training Program | DX: M20.22 Hallux rigidus, left foot (principal); M19.90 Unspecified osteoarthritis, unspecified site; M19.071 Primary osteoarthritis, right ankle and foot; M19.072 Primary osteoarthritis, left ankle and foot; M77.30 Calcaneal spur, unspecified foot; M72.2 Plantar fascial fibromatosis; M76.61 Achilles tendinitis, right leg; M76.62 Achilles tendinitis, left leg; M79.674 Pain in right toe(s); M79.675 Pain in left toe(s) | CPT/HCPCS: 20600; 99202; J1100; J2003; J3301 ==

== ENCOUNTER 2025-08-08 09:55 | Outpatient (AMB) | payer MEDICARE, SELFPAY ==
--- NOTE | 2025-08-08 10:44 | MHC.OFFVIS ---
Vital Signs 08/08/25 10:45 Height 5 ft 9 in Weight 185 lb BMI 27.3 Intake Visit Reasons: for cortisone inj left 1st MPJ Intake Note: 70 year old male coming in for injections for arthritis bilateral osteoarthritis of his feet and ankle. we had administered a cortisone injection to his right smalt MTP joint on 07/20/25. Today we plan to administer a cortisone injection to his left MTP joint. Patient has no questions or concerns at this time. he has seen significant improvement to his right side since his last visit however he notes occasional soreness when he has walked for to long. Allergies morphine (MORPHINE) Allergy (Intermediate, Verified 08/08/25 10:46) HR DROPPED amlodipine Adverse Reaction (Intermediate, Verified 08/08/25 10:46) Depression azithromycin Adverse Reaction (Intermediate, Verified 08/08/25 10:46) Joint Pain clarithromycin (Prevpac) Adverse Reaction (Intermediate, Verified 08/08/25 10:46) depression (after taking for a few days) - includes most PPI lansoprazole (Prevpac) Adverse Reaction (Intermediate, Verified 08/08/25 10:46) depression (after taking for a few days) - includes most PPI ranitidine (Zantac) Adverse Reaction (Intermediate, Verified 08/08/25 10:46) depression (after taking for a few months) Prilosec Adverse Reaction (Intermediate, Uncoded 06/20/25 08:37) depression (after taking for a few days) - includes most PPI HPI Comments Details: The patient is a 70 year old male presenting for a follow-up for a corticosteroid injection for left foot pain. Patient had a cortisone injection to the right 1st MPJ at the last appointment and states that he has noticed significant improvement in his symptoms to the right foot. He reports the cortisone injection resulted in insomnia for almost two days. Patient states he is experiencing pain to the left 1st MPJ. He states he has a history of a left hallux fracture many years ago which led to arthritis in the joint. He denies any new pedal injuries. He denies any other pedal concerns. 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 Pneumonia Pleural effusion ILD (interstitial lung disease) Right knee meniscal tear Abnormal biliary HIDA scan Kidney stones [place] of foot Bradycardia Left shoulder pain Normal colonoscopy (~08/2011) Lumbar spondylosis Impaired fasting glucose Dyslipidemia Benign essential hypertension History of gastric ulcer Gastritis Internal hemorrhoids Diverticulosis Benign prostatic hyperplasia Alopecia (capitis) totalis History of Lyme disease (~2009) History of hepatitis C Surgical History History of liver biopsy History of prostate surgery Status post left rotator cuff repair (~11/2020) History of esophagogastroduodenoscopy (EGD) (~06/2019) History of medial meniscus repair of left knee (~12/2016) Hx laparoscopic cholecystectomy (~10/2012) History of right inguinal hernia repair (~2011) History of surgery on right wrist Family History Father Gastric cancer Prostate cancer Family/Other Pancreas cancer Brother Skin cancer Social History Household Members: Other Household Members Other:: mother Housing: House Are you a primary respiratory care faculty to a significant other at home: No Do you presently have visiting nurse or other home services: No Alcohol intake: never Patient Tobacco Use Status: Never used Tobacco e-Cigarette/Vaping Use: Never Used Second Hand Smoke Exposure: No Advance Directives Date on File: 05/03/24 service: Yes Current occupational status: retired Cognitive needs: No Hearing needs: No Vision needs: Yes Review of Systems Const Details: - Musculoskeletal: Reports bilateral hallux pain, right currently relieved by previous cortisone injection. - Reports chronic back pain, spinal arthritis, and hip pain. - Reports stiffness. - Reports pain on the plantar aspect of the heels after walking for long periods of time. - Respiratory: Reports a history of permanent lung damage [id number]. - Cardiovascular: Reports a history of hypertension onset after COVID-19 infection. - Psychiatric: Reports a history of severe depression induced by blood pressure medications and proton pump inhibitors. All systems reviewed & are unremarkable except as noted in HPI and below Physical Exam Vital Signs: BMI result Body Mass Index 27.3 Extrem Other: Bilateral lower extremity focused physical exam: Derm: No open lesions, abrasions, or wounds noted. No erythema, ecchymosis or discoloration noted. No clinical signs of infection noted. Skin supple and turgor within normal limits. No maceration or hyperkeratotic areas noted. Vascular: DP/PT pulses palpable. Capillary refill time less than 3 seconds. Temperature gradient warm to warm. Pedal hair diminished. Mild Varicosities noted. Neuro: Protective sensations grossly intact to light touch. MSK: Pain on palpation to the left hallux in the area of the MPJ. No pain currently to the right hallux in the area of the MPJ. Absent range of motion of the left 1st MPJ. Limited range of motion of the right 1st MPJ. Crepitus noted to the left 1st MPJ. No fluctuance noted. Mild pain on palpation to bilateral heels in the area of the medial calcaneal tubercles and central aspect of the heels. Mildly antalgic gait unassisted noted. Office Procedures AMB Joint Injection/Aspir Pod Joint Injection/Aspiration Podiatry: Procedure: Left 1st MPJ cortisone injection: Cleansed the left hallux with an alcohol swab in the area of the 1st MPJ at the most painful location previously marked. Next injected 1.5 cc of lidocaine plain, 1 cc of dexamethasone, and 0.5 cc of triamcinolone in the area of the previously marked area with no incidents. A band-aid was applied to the area. Provided patient with after care instructions. LT - Injection of small joint LT Procedure code (CPT) selection complete Office Meds triamcinolone acetonide 40 mg/mL suspension for injection Performing Provider: Iveth Coleman DPM Performing Location: [facility] Administered by: Iveth Coleman DPM on 08/08/25 12:22 Dose Route Admin Location Dispensed Lot Number Expiration Date [place] [employer] 20 mg intra-articular 1 mL [address]-0 [employer] Total Dispensed Waste 1 mL 50 % dexamethasone sodium phosphate 4 mg/mL injection solution Performing Provider: Iveth Coleman DPM Performing Location: [facility] [place] Administered by: Iveth Coleman DPM on 08/08/25 12:22 Dose Route Admin Location Dispensed Lot Number Expiration Date [facility] [employer] 4 mg intra-articular 1 mL [id number] [employer] Total Dispensed Waste 1 mL 0 % lidocaine HCl 10 mg/mL (1 %) injection solution Performing Provider: Iveth Coleman DPM Performing Location: [facility] [place] Administered by: Iveth Coleman DPM on 08/08/25 12:22 Dose Route Admin Location Dispensed Lot Number Expiration Date [facility] [employer] 1.5 mL intra-articular 1.5 mL [id number] Total Dispensed Waste 1.5 mL 0 % Results Reviewed Results Reviewed: Laboratory Tests 06/27/25 08:32 WBC 6.9 Random Glucose 88 AST 37 ALT 38 Podiatry read of Bilateral foot x-rays (06/20/2025): Joint space narrowing noted to bilateral 1st MPJs, worse to the left. Osteophytic formation noted to the forefoot, midfoot, and hindfoot diffusely. Plantar calcaneal spur noted to the right. Posterior calcaneal spurs noted to the left Bilateral foot x-rays (06/20/2025): FINDINGS: RIGHT FOOT: There is moderate narrowing of the first MTP joint with subchondral sclerosis and marginal osteophytes. Small marginal sites are seen at the IP joint of the great toe. There is ossification in the distal Achilles tendon and a small plantar calcaneal spur, both are increased since the prior. There are moderate vascular calcifications. LEFT FOOT: There is moderate to severe narrowing of the MTP joint of the great toe with subchondral sclerosis cystic change and osteophytes. There are also osteophytes involving the sesamoids of the great toe. Marginal osteophytes are present involving the IP joint of the great toe. There is ossification in the distal Achilles tendon. There are moderate vascular calcifications. IMPRESSION: Right foot: Moderate osteoarthritis of the first MTP joint and mild osteoarthritis and IP joint of the great toe Left foot: Moderate to severe osteoarthritis of the IP joint and mild osteoarthritis of the IP joint of the great toe. Moderate atherosclerotic vascular disease. Assessment & Plan Assessment & Plan (1) Hallux rigidus, left foot: Code(s): M20.22 - Hallux rigidus, left foot Category: Medical (2) Arthritis of metatarsophalangeal (MTP) joint of great toes of both feet: Code(s): M19.071 - Primary osteoarthritis, right ankle and foot; M19.072 - Primary osteoarthritis, left ankle and foot Category: Medical (3) Pain in toes of both feet: Code(s): M79.674 - Pain in right toe(s); M79.675 - Pain in left toe(s) Category: Medical (4) Arthritis: Code(s): M19.90 - Unspecified osteoarthritis, unspecified site Category: Medical (5) Calcaneal spur: Code(s): M77.30 - Calcaneal spur, unspecified foot Category: Medical (6) Plantar fasciitis: Code(s): M72.2 - Plantar fascial fibromatosis Category: Medical (7) Insertional tendinopathy of both Achilles tendons: Code(s): M76.61 - Achilles tendinitis, right leg; M76.62 - Achilles tendinitis, left leg Category: Medical Plan Patient was informed and verbally consented to the use of an ambient scribe for clinic note documentation during this visit. I discussed the plan to administer a cortisone injection into the patient's left 1st MPJ and obtained consent. I advised him on post-procedure care, including avoiding strenuous activity for 1-2 days and that the bandage could be removed later today. We discussed that his left great toe joint appears to have significant reduction in joint spacing cartilage due to posttraumatic arthritis. We scheduled a follow-up appointment in 10 weeks to evaluate the effects of the injection and decide if further treatment is needed. - A cortisone injection was administered to the left first metatarsophalangeal joint for arthritis pain. - The patient will continue to take Celebrex as needed for pain and inflammation. - The patient was advised to continue using the patient's custom orthotics. - Continue with plantar fascial exercises. - Surgical options for the great toe arthritis, including joint implantation or fusion, were discussed as a future consideration if conservative treatments fail. RTC in 10 weeks. Orders: Orders AMB Joint Injection/Aspiration Podiatry Today M19.071 - Primary osteoarthritis, right ankle and foot, M19.072 - Primary osteoarthritis, left ankle and foot, M20.22 - Hallux rigidus, left foot, M79.674 - Pain in right toe(s), M79.675 - Pain in left toe(s) Coding Level of Care Code Est Pt Level 4 (61219) Diagnoses Hallux rigidus, left foot M20.22 Arthritis of metatarsophalangeal (MTP) joint of great toes of both feet M19.071; M19.072 Pain in toes of both feet M79.674; M79.675 Arthritis M19.90 Calcaneal spur M77.30 Plantar fasciitis M72.2 Insertional tendinopathy of both Achilles tendons M76.61; M76.62 CPT Codes Joint injectio/aspiration Podiatry - Joint Injection POD1: LT - Injection of small joint LT ([id number]) Time Spent (min) 35 Comment 5 mins for procedure
[2025-08-08 10:45] VITALS: BMI 27.3
--- OUTSIDE RECORDS SUMMARY | 2025-08-08 10:48 | XMS_ITS | Encounter Summary ---
Author Organization [facility] Address [address] [place] [address] Care Team Providers Care Perforator Loader Name Role Phone Unavailable Primary Care Provider Unavailabl e Encounter Details Date Type Department Care Team (Late st Contact Info) Description 06/23/2024 Lab Requisition [facility] [address] [facility] [place] [address] Jose Boyd MD [address] [facility] [address] [place] [address] Benign essential microscopic hematuria Social History Tobacco [...] grade urothelial carcinoma. 07/09/2024 10:33 AM EST [facility] at 1033 EST Gross Description [...] MD LAB PATHOLOGY ORDERABLES Fi nal Result [facility] [address] [place] [address], [place] [phone] documented in this encounter Visit Diagnoses Diagnosis Benign essential microscopic hematuria documented in this encounter
--- OUTSIDE RECORDS SUMMARY | 2025-08-08 10:48 | XMS_ITS | Clinical Summary ---
Author Organization [facility] Address [address] [place] [address] Phone Care Team Providers Care Turkey Boner Name Role Phone Rudolph Kumari NP Primary [...] Payer (Ef fective 2020-) Name:Chad Cotto Member ID:[id number] Relation to Subscriber:Self Name:Chad Cotto Subscriber ID:[id number] Payer ID:[id number] Group ID:Not on file Type:Medicare Address: [email or web address].[address] [address] [employer] MEDEX SUPPLEMENT MEDICARE PART A & B [employer] SUPPLEMENT MEDICARE PART A & B [employer] MED[employer] SUPPLEMENT MEDICARE PART A & B [employer] MEDEX SUPPLEMENT MEDICARE PART A & B [employer] CROSS MEDEX SUPPLEMENT MEDICARE PART A & B [employer] MEDEX SUPPLEMENT MEDICARE PART A & B [employer] MEDEX SUPPLEMENT MEDICARE PART A & B Member Subscriber Plan / Payer (Ef fective 2020-Present) Name:Chad Cotto Member ID:[id number] Relation to Subscriber:Self Name:Chad Cotto Subscriber ID:[id number] Payer ID:[id number] Group ID:Not on file Type:Medicare Address: [employer] [address] MEDEX SUPPLEMENT MEDICARE PART A & B Member Subscriber Plan / Payer (Ef fective 2020-Present) Name:Chad Cotto Member ID:[id number] Relation to Subscriber:Self Name:Chad Cotto Subscriber ID:[id number] Payer ID:[id number] Group ID:Not on file Type:Medicare Address: [employer] [address] [place] [phone] Care Teams Turkey Boner Relationship Specialty Start Date End Date Rudolph Kumari NP [address] [facility] [place] [address] PCP - General Family Medicine 03/14/22 Additional Source Comments The information contained in this document represents components of the legal health record. It is not the complete legal health record.[facility]
--- OUTSIDE RECORDS SUMMARY | 2025-08-08 10:48 | XMS_ITS | Clinical Summary ---
Author Organization [address] Address [address] [place] [address] Phone Care Team Providers Care Commissary Production Supervisor Name Role Phone Unavailable Primary Care [...] age to complete this topic Insurance [place] [facility]
== END 2025-08-08 11:00 | disposition home or self-care (01) ==
LOC: HO.HPODS 09:56
PROVIDERS: PCP Nurse Practitioner Family; Visit Provider Student in an Organized Health Care Education/Training Program
DX: M20.22 Hallux rigidus, left foot (principal); M19.071 Primary osteoarthritis, right ankle and foot; M19.072 Primary osteoarthritis, left ankle and foot; M79.674 Pain in right toe(s); M79.675 Pain in left toe(s); M77.30 Calcaneal spur, unspecified foot; M72.2 Plantar fascial fibromatosis; M76.61 Achilles tendinitis, right leg; M76.62 Achilles tendinitis, left leg
CPT/HCPCS: 20600